=== PATIENT | female | born 1985 | race Caucasian/White ===

== ENCOUNTER 2022-06-26 20:16 | Inpatient (IN) ==
[2022-06-26 21:18] LABS: BUN Creatinine Ratio 12.8 (10-20); Calcium 9.3 mg/dl (8.6-10.3); Creatinine Clr Calc Pharmacy 81.8 ml/min; Est GFR (African American) 89.8 ml/min; Est GFR (Non-African American) 77.5 ml/min
[2022-06-26 21:26] LABS: Basophils # (auto) 0.07 K/uL (0-0.2); Basophils % (auto) 0.8 %; Eosinophils # (auto) 0.23 K/uL (0-0.50); Eosinophils % (auto) 2.6 %; Hematocrit (blood only) 41.2 % (37.0-47.0); Hemoglobin 14.4 g/dl (12.0-16.0); Immature Granulocytes # (auto) 0.02 K/uL (0.01-0.20); Immature Granulocytes % (auto) 0.2 %; Lymphocytes # (auto) 1.91 K/uL (1.2-3.4); Lymphocytes % (auto) 21.9 %; Mean Corpuscular Hemoglobin 31.7 pg (25.0-34.0); Mean Corpuscular Volume 90.7 fL (80.0-100.0); Mean Platelet Volume 8.9 fL (9.4-12.4); Monocytes # (auto) 0.59 K/uL (0.11-0.59); Monocytes % (auto) 6.8 %; Neutrophils % (auto) 67.7 %; Platelet Count 375 K/uL (130-400); RDW Coefficient of Variation 12.4 % (11.5-14.5); RDW Standard Deviation 40.9 fL (36.4-46.3); Red Blood Count 4.54 M/uL (4.20-5.40); White Blood Count 8.72 K/ul (4.8-10.8)
[2022-06-26 21:34] LABS: Albumin Globulin Ratio 1.7 (0.9-2); Albumin Level 4.4 gm/dl (3.4-5.0); Bilirubin,Total 0.3 mg/dl (0.2-1.0); Globulin 2.6 gm/dl (2.5-4.0)
[2022-06-26] MEDS ORDERED: FAMOTIDINE 20MG IV PUSH 20 MG/5 ML SYR IV STA (21:41)
[2022-06-26] MEDS ORDERED: SODIUM CHLORIDE 0.9% 1000ML 1,000 ML IV ONE (21:41)
[2022-06-26] MEDS ORDERED: GI COCKTAIL ED USE PO ONE (21:41)
[2022-06-26 22:15] LABS: Troponin I High Sensitivity 2.8 pg/ml (0-14)
--- NOTE | 2022-06-26 22:20 | Emergency Department Note ---
History of Present Illness General Chief complaint: Abdominal Pain Stated complaint: SEVERE STOMACH PAINS, Time Seen by Provider: 06/26/22 21:22 History of Present Illness Maximum Pain Intensity: 4 This 36-year-old female presents to the ER complaining of epigastric pain. Gallbladder has been removed. Patient denies chest pain, dyspnea, vomiting, diarrhea, flulike illness. She tried Carafate with minimal improvement of symptoms. Home Medications Medication Instructions Recorded Confirmed Type duloxetine 60 mg capsule,delayed 60 mg PO QAM 03/01/19 06/26/22 History release (Cymbalta) fluticasone propionate 50 2 spray intranasal DAILY PRN 08/14/20 06/26/22 History mcg/actuation nasal Allergy Symptoms spray,suspension loratadine 10 mg tablet (Claritin) 10 mg PO QAM PRN Allergic Symptoms 08/14/20 06/26/22 History sucralfate 1 gram tablet (Carafate) 1 g PO QPM 02/12/21 06/26/22 History linaclotide 145 mcg capsule 145 mcg PO DAILY PRN Abdominal 02/14/21 06/26/22 History (Linzess) Discomfort buspirone 10 mg tablet 10 mg PO BID 02/15/21 06/26/22 History trazodone 100 mg tablet 100 mg PO HS 06/26/22 06/26/22 History Allergies Allergy/AdvReac Type Severity Reaction Status Date / Time clindamycin Allergy Intermediate muscle Verified 06/26/22 21:57 aches/metal taste in mouth Penicillins Allergy Unknown UNKNOWN, Verified 06/26/22 21:57 CHILD ALLERGY doxycycline AdvReac Mild Metallic Verified 06/26/22 21:57 Taste Past Med/Surg History Medical History Anxiety Depression GERD (gastroesophageal reflux disease) History of stomach ulcers Medical marijuana use Obesity (BMI 30.0-34.9) Pain at surgical site Surgical History H/O umbilical hernia repair (02/20/21) Open Umbilical Hernia Repair- Al Lizama DO, FACS 02/20/2021 History of bilateral tubal ligation History of colonoscopy History of dilatation and curettage History of esophagogastroduodenoscopy (EGD) History of hysterectomy with unilateral oophorectomy d/t endometriosis (right removed) History of tooth extraction Hx laparoscopic cholecystectomy 08/22/2020 Dr. Garvin Family History Mother Family history of reaction to anesthesia SLOW TO WAKE UP Diabetes Lung cancer Father Cerebral aneurysm Social History Smoking Status: Current some day smoker Second Hand Exposure: Yes (CARIDAD SMOKED-JUST QUIT/PARENTS SMOKED); Hx Alcohol Use: No Hx Substance Use: Yes (medical marijuana use) Substance Use Type Other:: MEDICAL MARIJUANA CARD-VAPING DAILY PRN Preferred Language: Lithuanian Communication Ability: Effective Ripsaw Matcher Required: No Beliefs That Will Affect Care: None marital status: Single Current Living Situation: Family and Significant Other Current Living Situation Comment: Lives with fiance and DAUGHTER current occupational status: unemployed and disabled current occupation: HAS NOT WORKED 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 How many Children do You have: 2 Feels Safe at Home: Yes during the past year weight has: decreased > 10 lbs Assistive Devices: Glasses Review of Systems A total of 10 systems reviewed and were otherwise negative Physical Exam Vital Signs Vital Signs - 24 hr 06/26/22 20:29 06/27/22 00:35 Temperature 36.4 C L Temperature Source Temporal Artery Scan Pulse Rate 81 Pulse Rate [Finger] 84 Respiratory Rate 20 16 Respiratory Effort / Characteristics Non-Labored Spontaneous Respiratory Depth Normal Blood Pressure 160/99 H Blood Pressure [Left Arm] 148/84 H Blood Pressure Mean 119 Blood Pressure Mean [Left Arm] 105 Pulse Oximetry 97 96 Oxygen Delivery Method Room Air Room Air Sepsis Recent Fever Within 48 Hours No Sepsis New/Unexplained Change in Mental Status N/A Sepsis Action Taken by Nursing No Action Required VITALS: Vitals are noted on the nurse's note and reviewed by myself. Vital signs stable. GENERAL: Pleasant patient, in no acute distress, nondiaphoretic, well-developed well-nourished. SKIN: The skin was without rashes, erythema, edema, or bruising. There is no tenting of the skin. Capillary reflex less than 2 seconds. HEAD: Normocephalic atraumatic. EARS: External auditory canals clear, EYES: Pupils equal round and reactive to light and accommodation. Conjunctivae without injection, sclerae without icterus. Extraocular movements intact. NOSE: Patent, turbinates without inflammation or discharge. MOUTH: Mucous membranes moist. Pharynx without erythema or exudate. Uvula midline. Airway patent. Tongue does not deviate. NECK: Supple without nuchal rigidity. No lymphadenopathy. No thyromegaly. Cervical spine is nontender. No JVD. HEART: Regular rate and rhythm LUNGS: Clear to auscultation bilaterally without wheezes, rales or rhonchi. No retractions or accessory muscle use. ABDOMEN: Positive bowel sounds x 4. Normal tympanic percussion. Soft, tender epigastric region, without masses or organomegaly. Barajas sign negative. No guarding or rebound tenderness. No CVA tenderness MUSCULOSKELETAL: No muscle atrophy, erythema, or edema noted. NEURO: Patient was alert and oriented to person place and time. Normal sensation to light and sharp touch. No focal neurological deficits. Course Administered Medications Discontinued Medications Al Hydrox/Mg Hydrox/Simethicone (Gi Cocktail Ed Use) 1 dose PO ONE ONE Stop: 06/26/22 21:42 Last Admin: 06/26/22 21:59 Dose: 1 dose Documented By: KARELY Famotidine (Pepcid 20mg Iv Push) 20 mg in 5 mls @ 2.5 mls/min IV NOW STA Stop: 06/26/22 21:42 Last Admin: 06/26/22 21:59 Dose: 2.5 mls/min Documented By: KARELY Sodium Chloride (Nss 1000ml) 1,000 mls @ 999 mls/hr IV .Q1H1M ONE Stop: 06/26/22 22:41 Last Infusion: 06/26/22 23:09 Dose: 0 mls/hr Documented By: Admin: 06/26/22 22:00 Dose: 999 mls/hr Documented By: KARELY Ioversol (Optiray 350 100ml) 85 ml IV ONCE ONE Stop: 06/26/22 22:56 Last Admin: 06/26/22 22:57 Dose: 85 ml Documented By: UZIEL Medical Decision Making Medical Records Attestation: I reviewed the patient's medical records. Home Medications Current Medication List: was personally reviewed by me Laboratory Data Attestation: I reviewed the patient's lab results. 06/26/22 20:40 06/26/22 20:40 Lab Results 06/26/22 06/26/22 06/26/22 Range/Units 20:40 20:40 21:42 WBC 8.72 (4.8-10.8) K/ul RBC 4.54 (4.20-5.40) M/uL Hgb 14.4 (12.0-16.0) g/dl Hct 41.2 (37.0-47.0) % MCV 90.7 (80.0-100.0) fL MCH 31.7 (25.0-34.0) pg MCHC 35.0 (32.0-36.0) g/dL RDW Std Deviation 40.9 (36.4-46.3) fL RDW Coeff of Leopoldo 12.4 (11.5-14.5) % Plt Count 375 (130-400) K/uL MPV 8.9 L (9.4-12.4) fL Immature Gran % (Auto) 0.2 % Neut % (Auto) 67.7 % Lymph % (Auto) 21.9 % [place] % (Auto) 6.8 % Eos % (Auto) 2.6 % Baso % (Auto) 0.8 % Neut # (Auto) 5.90 (1.40-6.50) K/uL Lymph # (Auto) 1.91 (1.2-3.4) K/uL [place] # (Auto) 0.59 (0.11-0.59) K/uL Eos # (Auto) 0.23 (0-0.50) K/uL Baso # (Auto) 0.07 (0-0.2) K/uL Immature Gran # (Auto) 0.02 (0.01-0.20) K/uL Sodium 139 (136-145) mmol/L Potassium 4.0 (3.5-5.1) mmol/L Chloride 106 (98-107) mmol/L Carbon Dioxide 28 (21-32) mmol/L Anion Gap 5 (3-11) BUN 12 (6-23) mg/dl Creatinine 0.94 (0.6-1.2) mg/dl Est Cr Clr Drug Dosing 81.8 ml/min Est GFR ( Amer) 89.8 ml/min Est GFR (Non-Af Amer) 77.5 ml/min BUN/Creatinine Ratio 12.8 (10-20) Glucose 112 H (70-99(Fasting)) mg/dl Calcium 9.3 (8.6-10.3) mg/dl Total Bilirubin 0.3 (0.2-1.0) mg/dl AST 17 (13-39) U/L ALT 16 (7-52) U/L Alkaline Phosphatase 64 (34-104) U/L Troponin I High Sens 2.8 Cancelled (0-14) pg/ml Total Protein 7.0 (6.0-8.3) gm/dl Albumin 4.4 (3.4-5.0) gm/dl Globulin 2.6 (2.5-4.0) gm/dl Albumin/Globulin Ratio 1.7 (0.9-2) Lipase 678 H (11-82) U/L Urine Color Urine Appearance (Clear) Urine pH (4.5-7.5) Ur Specific [place] (1.000-1.030) Urine Protein (Negative) Urine Glucose (UA) (Negative) Urine Ketones (Negative) Urine Blood (Negative) Urine Nitrite (Negative) Urine Bilirubin (Negative) Urine Urobilinogen (Negative) Ur Leukocyte Esterase (Negative) SARS-CoV-2, RNA, NAAT (NEGATIVE) 06/27/22 06/27/22 Range/Units 00:31 00:31 WBC (4.8-10.8) K/ul RBC (4.20-5.40) M/uL Hgb (12.0-16.0) g/dl Hct (37.0-47.0) % MCV (80.0-100.0) fL MCH (25.0-34.0) pg MCHC (32.0-36.0) g/dL RDW Std Deviation (36.4-46.3) fL RDW Coeff of Leopoldo (11.5-14.5) % Plt Count (130-400) K/uL MPV (9.4-12.4) fL Immature Gran % (Auto) % Neut % (Auto) % Lymph % (Auto) % [place] % (Auto) % Eos % (Auto) % Baso % (Auto) % Neut # (Auto) (1.40-6.50) K/uL Lymph # (Auto) (1.2-3.4) K/uL [place] # (Auto) (0.11-0.59) K/uL Eos # (Auto) (0-0.50) K/uL Baso # (Auto) (0-0.2) K/uL Immature Gran # (Auto) (0.01-0.20) K/uL Sodium (136-145) mmol/L Potassium (3.5-5.1) mmol/L Chloride (98-107) mmol/L Carbon Dioxide (21-32) mmol/L Anion Gap (3-11) BUN (6-23) mg/dl Creatinine (0.6-1.2) mg/dl Est Cr Clr Drug Dosing ml/min Est GFR ( Amer) ml/min Est GFR (Non-Af Amer) ml/min BUN/Creatinine Ratio (10-20) Glucose (70-99(Fasting)) mg/dl Calcium (8.6-10.3) mg/dl Total Bilirubin (0.2-1.0) mg/dl AST (13-39) U/L ALT (7-52) U/L Alkaline Phosphatase (34-104) U/L Troponin I High Sens (0-14) pg/ml Total Protein (6.0-8.3) gm/dl Albumin (3.4-5.0) gm/dl Globulin (2.5-4.0) gm/dl Albumin/Globulin Ratio (0.9-2) Lipase (11-82) U/L Urine Color Yellow Urine Appearance Clear (Clear) Urine pH 5.5 (4.5-7.5) Ur Specific [place] > 1.045 H (1.000-1.030) Urine Protein Negative (Negative) Urine Glucose (UA) Negative (Negative) Urine Ketones Negative (Negative) Urine Blood Negative (Negative) Urine Nitrite Negative (Negative) Urine Bilirubin Negative (Negative) Urine Urobilinogen Negative (Negative) Ur Leukocyte Esterase Negative (Negative) SARS-CoV-2, RNA, NAAT NEGATIVE (NEGATIVE) Imaging Data Attestation: I personally reviewed and interpreted this imaging study as follows: Radiologist's Impression: Abdomen/Pelvis CT 06/26/22 21:41 Exam(s): CT ABDOMEN + PELVIS With Contrast IV Amt: 85 ml optiray EXAM: CT Abdomen and Pelvis With Intravenous Contrast CLINICAL HISTORY: Reason for exam: epi pain, ? pancreatitis. TECHNIQUE: Axial computed tomography images of the abdomen and pelvis with intravenous contrast. CTDI is 10.96 mGy and DLP is 527.14 mGy-cm. Automated exposure control was utilized for the study. A dose lowering technique was utilized adhering to the principles of ALARA. CONTRAST: Patient received 85 ml optiray of IV contrast COMPARISON: 01/16/2021. FINDINGS: Lung bases: Scattered minimal bilateral lower lobe atelectasis otherwise clear lung bases. Heart: Unremarkable. No significant pericardial effusion. Normal cardiac size. ABDOMEN: Liver: Unremarkable. No mass. Gallbladder and bile ducts: Nonvisualized gallbladder suggestive of previous cholecystectomy. No ductal dilation. Pancreas: Unremarkable. No mass. No ductal dilation. Spleen: Unremarkable. No splenomegaly. Adrenals: Unremarkable. No mass. Kidneys and ureters: Unremarkable. No solid mass. No hydronephrosis. Stomach and bowel: Unremarkable. No obstruction. No mucosal thickening. PELVIS: Appendix: Normal appendix. Bladder: Unremarkable. No mass. Reproductive: Nonvisualized uterus suggestive of previous hysterectomy. ABDOMEN and PELVIS: Intraperitoneal space: Unremarkable. No free air. No significant fluid collection. Bones/joints: No acute fracture. No dislocation. Soft tissues: Unremarkable. Vasculature: Unremarkable. No abdominal aortic aneurysm. Lymph nodes: Unremarkable. No enlarged lymph nodes. IMPRESSION: 1. Question prior cholecystectomy, clinical correlation recommended. Otherwise unremarkable abdominal viscera. Specifically, no signs of pancreatitis seen. 2. No acute appendicitis or bowel obstruction. 3. Status post prior hysterectomy otherwise normal pelvic structures. Electronically signed by: Jennifer Syed MD 06/26/22 23:45 PM [facility] Narrative Prior records/ancillary studies reviewed. Triage Nursing notes reviewed. Additional history obtained from nursing. The patient's history was concerning for abdominal pain. Differential diagnosis: Etiologies such as appendicitis, diverticulitis, PUD, biliary pathology, UTI, pancreatitis, obstruction, mesenteric ischemia, aortic pathology, infections, inflammatory bowel disease, renal colic, as well as others were entertained. Physical examination findings: As above. ER treatment provided: An order was placed for continuous cardiac monitoring. The monitor shows a rate of 60-1 50 with a sinus rhythm per my Independent interpretation. IV fluids, Pepcid, GI cocktail were ordered On reassessment the patient felt better. Diagnostics interpreted by me: ECG: Ordered for upper abdominal pain EKG: Poor baseline, normal sinus, normal intervals, no acute ST-T wave changes. Impression normal sinus rhythm poor baseline rate of 67 independently interpreted by myself I think arrhythmia is unlikely. EKG shows normal sinus rhythm with no interval abnormalities such as QT prolongation or WPW. There are no findings to suggest Brugada syndrome. Cardiac monitoring in the emergency department reveals no tachycardic or bradycardic dysrhythmia. Hypertrophic cardiomyopathy was considered but there are no clear historical elements pointing toward this. EKG is not suggestive. The QRS voltage is not extremely large and there are no suggestive Q waves. The labs Independently Interpreted by myself revealed elevated lipase. No w orrisome leukocytosis. Normal LFTs Imaging studies: Chest x-ray with no acute consolidation, pneumothorax or free air per my independent interpretation CT was negative for acute pancreatitis per my independent rotation and radiology read the report as above Consultation: A consultation was placed with the hospitalist. The case was discussed and diagnostics were reviewed. The patient was evaluated in the ER for further treatment. Exam and history seem consistent with acute abdominal pain with concerns for possible early pancreatitis. Lipase is elevated. Patient denies alcohol use. She is still moderate amount of pain. Medicine was consulted and the case was discussed. She will be admitted to the medical service. By the evaluation outlined above emergent etiologies such as appendicitis, diverticulitis, PUD, biliary pathology, UTI, obstruction, mesenteric ischemia, aortic pathology, infections, inflammatory bowel disease, renal colic, as well as others were deemed relatively unlikely. The pt informed about the findings as listed above. All questions were answered and pleased with the treatment. The chart was completed utilizing [employer] Speech voice recognition software. Grammatical errors, random word insertions, pronoun errors, and incomplete sentences are an occassional consequence of this system due to software limitations, ambient noise, and hardware issues. Any formal questions or concerns about the content, text, or information contained within the body of this dictation should be directly addressed to the physician pet care assistant for clarification. Impression & Plan Abdominal pain, acute, Acute pancreatitis Discharge Plan Visit Data Chief Complaint: Abdominal Pain Stated Complaint: SEVERE STOMACH PAINS, ED Provider: Jorden Moreno ED Midlevel Provider: Tamika An Discharge Problem: Abdominal pain, acute, Acute pancreatitis Patient Disposition: Admitted As Inpatient Condition: Good Forms Stand Alone Forms: [employer] Prescriptions Prescriptions: No Action sucralfate [Carafate] 1 gram tablet 1 g PO QPM Linzess 145 mcg capsule 145 mcg PO DAILY PRN (Reason: Abdominal Discomfort) duloxetine [Cymbalta] 60 mg Capsule,Delayed Release(Dr/Ec) 60 mg PO QAM trazodone 100 mg tablet 100 mg PO HS fluticasone propionate 50 mcg/actuation [place],Suspension 2 spray INTRANASAL DAILY PRN (Reason: Allergy Symptoms) loratadine [Claritin] 10 mg Tablet 10 mg PO QAM PRN (Reason: Allergic Symptoms) buspirone 10 mg Tablet 10 mg PO BID Referrals Referrals: Williams Hauser MD [Primary Care Provider] -
[2022-06-26] MEDS ORDERED: OPTIRAY 350 100ml IV ONE (22:55)
--- NOTE | 2022-06-26 23:46 | CT Scan Report ---
Exam(s): CT ABDOMEN + PELVIS With Contrast IV Amt: 85 ml optiray EXAM: CT Abdomen and Pelvis With Intravenous Contrast CLINICAL HISTORY: Reason for exam: epi pain, ? pancreatitis. TECHNIQUE: Axial computed tomography images of the abdomen and pelvis with intravenous contrast. CTDI is 10.96 mGy and DLP is 527.14 mGy-cm. Automated exposure control was utilized for the study. A dose lowering technique was utilized adhering to the principles of ALARA. CONTRAST: Patient received 85 ml optiray of IV contrast COMPARISON: 01/16/2021. FINDINGS: Lung bases: Scattered minimal bilateral lower lobe atelectasis otherwise clear lung bases. Heart: Unremarkable. No significant pericardial effusion. Normal cardiac size. ABDOMEN: Liver: Unremarkable. No mass. Gallbladder and bile ducts: Nonvisualized gallbladder suggestive of previous cholecystectomy. No ductal dilation. Pancreas: Unremarkable. No mass. No ductal dilation. Spleen: Unremarkable. No splenomegaly. Adrenals: Unremarkable. No mass. Kidneys and ureters: Unremarkable. No solid mass. No hydronephrosis. Stomach and bowel: Unremarkable. No obstruction. No mucosal thickening. PELVIS: Appendix: Normal appendix. Bladder: Unremarkable. No mass. Reproductive: Nonvisualized uterus suggestive of previous hysterectomy. ABDOMEN and PELVIS: Intraperitoneal space: Unremarkable. No free air. No significant fluid collection. Bones/joints: No acute fracture. No dislocation. Soft tissues: Unremarkable. Vasculature: Unremarkable. No abdominal aortic aneurysm. Lymph nodes: Unremarkable. No enlarged lymph nodes. IMPRESSION: 1. Question prior cholecystectomy, clinical correlation recommended. Otherwise unremarkable abdominal viscera. Specifically, no signs of pancreatitis seen. 2. No acute appendicitis or bowel obstruction. 3. Status post prior hysterectomy otherwise normal pelvic structures. Electronically signed by: Jennifer Syed MD 06/26/22 23:45 PM
[2022-06-27 00:40] LABS: Appearance Urine Clear (Clear); Bilirubin Urine Negative (Negative); Blood Urine Negative (Negative); Color Urine Yellow; Glucose Urine UA Negative (Negative); Ketones Urine Negative (Negative); Leukocyte Esterase Urine Negative (Negative); Nitrite Urine Negative (Negative); Protein Urine Negative (Negative); Specific Gravity Urine > 1.045 (1.000-1.030); Urobilinogen Urine Negative (Negative); pH Urine 5.5 (4.5-7.5)
--- NOTE | 2022-06-27 02:52 | History and Physical Report ---
DATE OF ADMISSION: 06/27/2022. CHIEF COMPLAINT: Abdominal pain. HISTORY OF PRESENT ILLNESS: This is a 36-year-old female with past medical history significant for fatty liver, allergic rhinitis, major depression, generalized anxiety disorder, who presents with severe abdominal pain. The patient says last evening when she was eating dinner around 5:30 p.m., she noticed severe pain in the epigastric and lower rib cage region, radiated to back. Says she has history of esophagitis, and gerd thought could possibly be esophagitis or gerd , but it was not getting better, the pain was different, so she came here. Her labs, lipase is elevated at 678. Urinalysis negative. Rest of the labs are okay. CT abdomen and pelvis was okay. The patient has history of cholecystectomy. LFTs were okay. Question of elevated lipase and pancreatitis, so we were called for admission. Patient is somewhat tearful because of pain. The pain is sometimes going to the lower chest, a burning pain. No nausea or vomiting. No diarrhea. Has the usual constipation, but no blood in the stools or black stools. Normal bladder movements. No hematuria. No fevers. Currently, no shortness of breath, no cough, no headache, no blurred visions, no earache, no runny nose, no sore throat. Hemodynamics are stable. ALLERGIES: TO CLINDAMYCIN, PENICILLIN, DOXYCYCLINE. PAST MEDICAL HISTORY: As mentioned above. PAST SURGICAL HISTORY: Colonoscopy, EGD/ fundoplication, hysteroscopy, endometrial ablation, laparoscopic hysterectomy with right salpingo- oophorectomy, laparoscopic cholecystectomy, ligation of oviducts, Pap screen. MEDICATIONS: The patient is on buspirone 10 mg p.o. b.i.d., duloxetine 60 mg p.o. a.m., Flonase 2 sprays intranasal daily p.r.n., Linzess 145 mcg daily p.r.n., Claritin 10 mg p.o. daily p.r.n. for allergic symptoms, Carafate 1 g p.o. p.m., trazodone 100 mg p.o. at bedtime. FAMILY HISTORY: Significant for father of brain aneurysm; mother had thyroid disorder; paternal grandfather had alcoholism. SOCIAL HISTORY: Quit smoking in 2014, smoked 1 pack a day for 10 years. Currently no alcohol use. Smokes marijuana as per Epic. REVIEW OF SYSTEMS: As per HPI. Rest of review of systems is negative. PHYSICAL EXAMINATION: GENERAL: The patient is obese, not in acute distress. VITAL SIGNS: Temperature 36.4, pulse 84, respiratory rate 16, blood pressure 148/84, oxygen 96% on room air. HEENT: Pupils equal, round, and reactive to light. Oral mucosa moist. NECK: No JVD. No neck masses. CARDIOVASCULAR: S1 and S2 heard. Regular rate and rhythm. No murmur, no gallop. RESPIRATORY SYSTEM: Normal AP diameter. No accessory muscle use. No wheezing, no crackles. ABDOMEN: Soft, bowel sounds present. Epigastric tenderness present with some mild guarding. No rigidity, no distention. CENTRAL NERVOUS SYSTEM: Cranial nerves II-XII grossly intact, nonfocal. EXTREMITIES: No edema, no erythema. LABORATORY DATA: WBC 8.7, hemoglobin 14.4, hematocrit 41.2, platelets 375. Sodium 139, potassium 4, chloride 106, bicarbonate 28, BUN 12, creatinine 0.9, serum glucose 112, calcium 9.3, total bilirubin 0.3, AST 17, ALT 16, alkaline phosphatase 64. Troponin I high sensitivity 2.8, lipase 678. Urinalysis negative. SARS-CoV-2 rapid test negative. IMAGING DATA: Chest x-ray, no acute findings. CT abdomen and pelvis with IV contrast, question prior cholecystectomy, unremarkable abdominal viscera. No signs of pancreatitis seen. No acute appendicitis or bowel obstruction. Status post hysterectomy, otherwise normal pelvic structures. EKG: Poor quality data interpretation. Normal sinus rhythm, rate of 61. Low voltage QRS, septal infarct age indeterminate. No previous ECGs available. ASSESSMENT AND PLAN: This is a 36-year-old female who presents with epigastric abdominal pain, admitted for possible pancreatitis. 1. Abdominal pain in the epigastric region: The patient has history of gastritis and a history of esophagitis in the past. Lipase is elevated at 678. CT abdomen and pelvis with IV contrast is mostly unremarkable. History of cholecystectomy in the past: Will keep her in the hospital, keep her n.p.o., IV Ringer lactate at 200 mL per hour, IV Dilaudid p.r.n., and IV Zofran p.r.n. Follow repeat lipase. Consult GI in the a.m. for further recommendations. 2. History of gastritis and esophagitis: Will continue with IV Pepcid b.i.d.Continue home Carafate q pm 3. History of major depression and generalized anxiety disorder: Continue her Cymbalta, buspirone and trazodone. 4. Deep venous thrombosis prophylaxis: Lovenox. DISPOSITION: Close observation in medical floor. PT, OT prior to discharge. Social service to help with discharge planning. Job ID: [id number] [facility] CENTERLisa
[2022-06-27] MEDS ORDERED: POLYETHYLENE (MIRALAX) 17 GM PACK PO PRN (03:24)
[2022-06-27] MEDS ORDERED: ACETAMINOPHEN 325 MG TAB PO PRN (03:24)
[2022-06-27] MEDS ORDERED: HYDROmorphone INJ 0.5 MG/0.5 ML SYR IV PRN (03:24)
[2022-06-27] MEDS ORDERED: FLUTICASONE PROPIONATE NA SPR 16 GM BTL PRN (03:24)
[2022-06-27] MEDS: LACTATED RINGER'S 1,000 ML IV SCH ×4 (03:46→19:38)
--- NOTE | 2022-06-27 06:57 | XRay Report ---
XR chest 1V portable HISTORY: 36 years-old Female epi pain acute chest and upper abdominal pain COMPARISON: CT abdomen and pelvis of same day TECHNIQUE: AP view of the chest FINDINGS: Cardiomediastinal and hilar silhouettes are within normal limits. Mid to lower thoracic dextroscolios is. The bones appear grossly intact. No pneumothorax, pleural effusion, airspace consolidation or pul monary edema. IMPRESSION: No acute process. ACT 112: Negative or not required by law. The above report was generated using voice recognition software. It may contain grammatical, syntax o r spelling errors. Electronically signed by: Odell Johnson M.D. 06/27/2022 6:56 AM
[2022-06-27] MEDS: FAMOTIDINE 20 MG in SYRINGE 3 ML IV SCH ×2 (07:32→20:15)
[2022-06-27] MEDS: ENOXAPARIN INJ 40 MG/0.4 ML SYR SQ SCH (07:34)
[2022-06-27] MEDS: DULoxetine HCL 60 MG CAP PO SCH (07:34)
[2022-06-27] MEDS: busPIRone 5 MG TAB PO SCH ×2 (07:34→20:10)
--- NOTE | 2022-06-27 08:48 | Hospitalist Progress Note ---
Date of Service June 27, 2022 Assessment & Plan (1) Acute pancreatitis: Plan: First episode, unclear etiology. Denies heavy EtOH use. Cont LR as she is improved. Pain meds PRN. Known h/o IBS-C and takes Linzess on occasion. Loose stools reported at this time. Will monitor. (2) GERD (gastroesophageal reflux disease): Plan: history of transoral incisionless fundoplication (TID) procedure in 2019 by [facility]. May consider increasing home carafate to BID, however, awaiting GI evaluation. Cont linzess and pepcid for now. Patient was also historically on a PPI, which is not on her current home medication list. Would consider adding this back, also. (3) Depression: Plan: Chronic, stable. Cont home medications including Buspar and Duloxetine. Lovenox Full code Dispo-to home when pancreatitis resolves and she is tolerating solid food again. [facility] Admission and Anticipated Discharge Date Admission Date: June 27, 2022 Results & Data Results & Data Vital Signs (Past 12 Hours) Vital Signs Temp Pulse Resp BP Pulse Ox O2 Del Method 06/27/22 07:16 36.7 C 69 16 132/91 95 Room Air 06/27/22 03:21 36.8 C 70 16 131/88 96 Room Air 06/27/22 00:35 84 16 148/84 H 96 Room Air Laboratory Results Short CBC 06/26/22 Range/Units 20:40 WBC 8.72 (4.8-10.8) K/ul Hgb 14.4 (12.0-16.0) g/dl Hct 41.2 (37.0-47.0) % Plt Count 375 (130-400) K/uL BMP 06/26/22 20:40 Sodium 139 Potassium 4.0 Chloride 106 Carbon Dioxide 28 BUN 12 Creatinine 0.94 Glucose 112 H Calcium 9.3 Liver Function 06/26/22 Range/Units 20:40 Total Bilirubin 0.3 (0.2-1.0) mg/dl AST 17 (13-39) U/L ALT 16 (7-52) U/L Alkaline Phosphatase 64 (34-104) U/L Albumin 4.4 (3.4-5.0) gm/dl Urine 06/27/22 Range/Units 00:31 Urine Color Yellow Urine Appearance Clear (Clear) Urine pH 5.5 (4.5-7.5) Ur Specific [place] > 1.045 H (1.000-1.030) Urine Protein Negative (Negative) Urine Glucose (UA) Negative (Negative) Diagnostic Findings Abdomen/Pelvis CT 06/26/22 21:41 Exam(s): CT ABDOMEN + PELVIS With Contrast IV Amt: 85 ml optiray EXAM: CT Abdomen and Pelvis With Intravenous Contrast CLINICAL HISTORY: Reason for exam: epi pain, ? pancreatitis. TECHNIQUE: Axial computed tomography images of the abdomen and pelvis with intravenous contrast. CTDI is 10.96 mGy and DLP is 527.14 mGy-cm. Automated exposure control was utilized for the study. A dose lowering technique was utilized adhering to the principles of ALARA. CONTRAST: Patient received 85 ml optiray of IV contrast COMPARISON: 01/16/2021. FINDINGS: Lung bases: Scattered minimal bilateral lower lobe atelectasis otherwise clear lung bases. Heart: Unremarkable. No significant pericardial effusion. Normal cardiac size. ABDOMEN: Liver: Unremarkable. No mass. Gallbladder and bile ducts: Nonvisualized gallbladder suggestive of previous cholecystectomy. No ductal dilation. Pancreas: Unremarkable. No mass. No ductal dilation. Spleen: Unremarkable. No splenomegaly. Adrenals: Unremarkable. No mass. Kidneys and ureters: Unremarkable. No solid mass. No hydronephrosis. Stomach and bowel: Unremarkable. No obstruction. No mucosal thickening. PELVIS: Appendix: Normal appendix. Bladder: Unremarkable. No mass. Reproductive: Nonvisualized uterus suggestive of previous hysterectomy. ABDOMEN and PELVIS: Intraperitoneal space: Unremarkable. No free air. No significant fluid collection. Bones/joints: No acute fracture. No dislocation. Soft tissues: Unremarkable. Vasculature: Unremarkable. No abdominal aortic aneurysm. Lymph nodes: Unremarkable. No enlarged lymph nodes. IMPRESSION: 1. Question prior cholecystectomy, clinical correlation recommended. Otherwise unremarkable abdominal viscera. Specifically, no signs of pancreatitis seen. 2. No acute appendicitis or bowel obstruction. 3. Status post prior hysterectomy otherwise normal pelvic structures. Electronically signed by: Jennifer Syed MD 06/26/22 23:45 PM Chest X-Ray 06/26/22 21:43 XR chest 1V portable HISTORY: 36 years-old Female epi pain acute chest and upper abdominal pain COMPARISON: CT abdomen and pelvis of same day TECHNIQUE: AP view of the chest FINDINGS: Cardiomediastinal and hilar silhouettes are within normal limits. Mid to lower thoracic dextroscoliosis. The bones appear grossly intact. No pneumothorax, pleural effusion, airspace consolidation or pulmonary edema. IMPRESSION: No acute process. ACT 112: Negative or not required by law. The above report was generated using voice recognition software. It may contain grammatical, syntax or spelling errors. Electronically signed by: Odell Johnson M.D. 06/27/2022 6:56 AM Medications Administered Current Inpatient Medications Acetaminophen (Acetaminophen 325 Mg Tab) 650 mg PO Q4H PRN PRN Reason: pain/fever Stop: 07/27/22 03:23 Buspirone HCl (Buspirone 5 Mg Tab) 10 mg PO BID ALEX Stop: 07/27/22 08:59 Last Admin: 06/27/22 07:34 Dose: 10 mg Duloxetine HCl (Duloxetine Hcl 60 Mg Cap) 60 mg PO QAM ALEX Stop: 07/27/22 08:59 Last Admin: 06/27/22 07:34 Dose: 60 mg Enoxaparin Sodium (Enoxaparin Inj 40 Mg/0.4 Ml Syr) 40 mg SQ Q24H ALEX Stop: 07/27/22 08:59 Last Admin: 06/27/22 07:34 Dose: Not Given Fluticasone Propionate (Fluticasone Propionate Na Spr 16 Gm Btl) 2 sprays NA DAILY PRN PRN Reason: Allergy Symptoms Stop: 07/27/22 03:23 Hydromorphone HCl (Hydromorphone Inj 0.5 Mg/0.5 Ml Syr) 0.5 mg IV Q4H PRN PRN Reason: Pain Stop: 07/11/22 03:23 Last Admin: 06/27/22 03:37 Dose: 0.5 mg Lactated Ringer's (Lr) 1,000 mls @ 200 mls/hr IV .Q5H ALEX Stop: 07/27/22 03:23 Last Admin: 06/27/22 03:46 Dose: 200 mls/hr Famotidine 20 mg/ Syringe 5 mls @ 2.5 mls/min IV BID ALEX Stop: 07/27/22 08:59 Last Admin: 06/27/22 07:32 Dose: 2.5 mls/min Ondansetron HCl (Ondansetron Inj 2 Mg/Ml 2 Ml Vial) 4 mg IV Q6H PRN PRN Reason: Nausea Stop: 07/27/22 03:23 Polyethylene Glycol (Polyethylene (Miralax) 17 Gm Pack) 17 gm PO DAILY PRN PRN Reason: Constipation Stop: 07/27/22 03:23 Sucralfate (Sucralfate 1 Gm Tab) 1 gm PO QPM ALEX Stop: 07/27/22 20:59 Trazodone HCl (Trazodone Hcl 100 Mg Tab) 100 mg PO HS ALEX Stop: 07/27/22 20:59
[2022-06-27 09:47] LABS: Basophils # (auto) 0.05 K/uL (0-0.2); Basophils % (auto) 0.6 %; Eosinophils # (auto) 0.14 K/uL (0-0.50); Eosinophils % (auto) 1.8 %; Hematocrit (blood only) 38.9 % (37.0-47.0); Hemoglobin 13.1 g/dl (12.0-16.0); Immature Granulocytes # (auto) 0.02 K/uL (0.01-0.20); Immature Granulocytes % (auto) 0.3 %; Lymphocytes # (auto) 1.47 K/uL (1.2-3.4); Lymphocytes % (auto) 18.7 %; Mean Corpuscular Hemoglobin 31.2 pg (25.0-34.0); Mean Corpuscular Hgb Conc 33.7 g/dL (32.0-36.0); Mean Corpuscular Volume 92.6 fL (80.0-100.0); Mean Platelet Volume 8.5 fL (9.4-12.4); Monocytes # (auto) 0.59 K/uL (0.11-0.59); Monocytes % (auto) 7.5 %; Neutrophils % (auto) 71.1 %; Platelet Count 306 K/uL (130-400); RDW Coefficient of Variation 12.4 % (11.5-14.5); RDW Standard Deviation 42.6 fL (36.4-46.3); White Blood Count 7.87 K/ul (4.8-10.8)
[2022-06-27 10:05] LABS: BUN Creatinine Ratio 9.3 (10-20); Calcium 8.8 mg/dl (8.6-10.3); Creatinine Clr Calc Pharmacy 89.2 ml/min; Est GFR (Non-African American) 86.3 ml/min; Magnesium 1.8 mg/dl (1.7-2.4); Potassium 4.4 mmol/L (3.5-5.1)
[2022-06-27 10:12] LABS: Troponin I High Sensitivity 2.5 pg/ml (0-14)
--- NOTE | 2022-06-27 14:40 | Electrocardiogram Report ---
Test Reason : Blood Pressure : / mmHG Vent. Rate : 061 BPM Atrial Rate : 061 BPM P-R Int : 134 ms QRS Dur : 040 ms QT Int : 394 ms P-R-T Axes : 055 038 080 degrees QTc Int : 396 ms Poor data quality, interpretation may be adversely affected Normal sinus rhythm Low voltage QRS Septal infarct , age undetermined Abnormal ECG No previous ECGs available Confirmed by Ryan Camacho ([id number]) on 06/27/2022 2:39:47 PM Referred By: REFERRED SELF Confirmed By:Ryan Camacho
[2022-06-27] MEDS ORDERED: MoRPHine SULFATE 2 MG/ML CARP IV PRN (15:50)
--- NOTE | 2022-06-27 17:21 | Gastrointestinal Consultation ---
Date of Consultation June 27, 2022 Assessment & Plan (1) Acute pancreatitis: Unknown etiology. No evidence of choledocholithiasis. Post choley. No hx of increased ETOH No new medications. Plan 1. IV LR at 200/hr. 2. Clear liquids po. 3. Analgesics and antiemetics 4. OP EGD/EUS in 6wks. 5. GI will jean sign off. Recall if needed. Supervising Physician Co-Signing Physician Notes I performed a history and physical examination of the patient today, including specifically on physical exam - soft abdomen. I have discussed the patient's management with the advanced practitioner. Please refer to the nurse practitioner's note for the documented findings and plan of care. OP EUS Recall GI if needed. History of Present Illness Reason for Consultation: Pancreatitis Requesting Physician: Dr. Bell Attending Physician: Martine Vidales, DO History of Present Illness Ms. Rosalina Teran is a 36 yr old female pt of Dr. Hauser w a hx of fatty liver, GERD post TIFF, depression/anxiety who presented to the ED late yesterday for pain that began after eating steak for lunch. She developed diffuse upper abd pain radiating around to the back that persisted, also w one episodes of nausea/vomiting. On arrival, LFTsm hb and creatinine were normal but Lipase was elevated at 678. CT w/o significant abnormalities post choley and appendectomy. She continues w pain, though says it is improved and is tolerating clear liquids po. Allergies Allergy/AdvReac Type Severity Reaction Status Date / Time clindamycin Allergy Intermediate muscle Verified 06/26/22 21:57 aches/metal taste in mouth Penicillins Allergy Unknown UNKNOWN, Verified 06/26/22 21:57 CHILD ALLERGY doxycycline AdvReac Mild Metallic Verified 06/26/22 21:57 Taste Home Medications Medication Instructions Recorded Confirmed Type duloxetine 60 mg capsule,delayed 60 mg PO QAM 03/01/19 06/26/22 History release (Cymbalta) fluticasone propionate 50 2 spray intranasal DAILY PRN 08/14/20 06/26/22 History mcg/actuation nasal Allergy Symptoms spray,suspension loratadine 10 mg tablet (Claritin) 10 mg PO QAM PRN Allergic Symptoms 08/14/20 06/26/22 History sucralfate 1 gram tablet (Carafate) 1 g PO QPM 02/12/21 06/26/22 History linaclotide 145 mcg capsule 145 mcg PO DAILY PRN Abdominal 02/14/21 06/26/22 History (Linzess) Discomfort buspirone 10 mg tablet 10 mg PO BID 02/15/21 06/26/22 History trazodone 100 mg tablet 100 mg PO HS 06/26/22 06/26/22 History Patient History Medical History (Updated 06/27/22 @ 08:51 by Martine Vidales DO) Anxiety Depression GERD (gastroesophageal reflux disease) History of stomach ulcers Medical marijuana use Obesity (BMI 30.0-34.9) Pain at surgical site Surgical History H/O umbilical hernia repair (02/20/21) Open Umbilical Hernia Repair- Al Lizama DO, FACS 02/20/2021 History of bilateral tubal ligation History of colonoscopy History of dilatation and curettage History of esophagogastroduodenoscopy (EGD) History of hysterectomy with unilateral oophorectomy d/t endometriosis (right removed) History of tooth extraction Hx laparoscopic cholecystectomy 08/22/2020 Dr. Garvin Family History Mother Family history of reaction to anesthesia SLOW TO WAKE UP Diabetes Lung cancer Father Cerebral aneurysm Social History Smoking Status: Former smoker Second Hand Exposure: Yes (CARIDAD SMOKED-JUST QUIT/PARENTS SMOKED); Hx Alcohol Use: No Hx Substance Use: Yes Last Used Substance: Just Prior to Arrival Substance Use Type Other:: MEDICAL MARIJUANA CARD-VAPING DAILY PRN Preferred Language: [place] Verdean Communication Ability: Effective Pole Shaver Required: No Beliefs That Will Affect Care: None marital status: Single Current Living Situation: Family Current Living Situation Comment: Lives with fiance and DAUGHTER current occupational status: unemployed and disabled current occupation: HAS NOT WORKED 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 How many Children do You have: 2 Other Information That Helps Us Care for You: No Feels Safe at Home: Yes Safety Concerns: Feels Safe At This Time during the past year weight has: decreased > 10 lbs Assistive Devices: None Review of Systems Review of Systems: ROS: Gen: Denies weakness, fevers, weight loss Eyes: No eye redness, or pain, no recent vision changes Resp: No SOB, no cough Cardio: No palpitations/irregular beats, no chest pain GI: As per HPI, othewise (-) : Denies pain on urination Skin: No jaundice, itching or new rashes A total of 12 systems were reviewed, all others (-) Physical Exam Constitutional: WD/WN, vitals as above Eyes: PERRL, conjunctivae normal, anicteric sclerae ENMT: external ear and nose normal, oropharynx normal Neck: trachea midline, no thyromegaly Respiratory: normal respiratory effort, lungs clear to auscultation Cardiovascular: RRR, no murmur, no edema Gastrointestinal (Abdomen): Soft, non distended, hypoactive BS, very tender in the epigastric area. Skin: warm, dry no jaundice Neurologic: PERRL, EOMI, accommodation nl, no face palsy, no dysarthria Psychiatric: A+Ox3, euthymic affect Lymphatic: no cervical or axillary lymphadenopathy Results & Data Vital Signs (Past 12 Hours) Vital Signs Temp Pulse Resp BP Pulse Ox O2 Del Method 06/27/22 14:20 36.7 C 61 16 148/87 H 98 Room Air 06/27/22 07:16 36.7 C 69 16 132/91 95 Room Air Laboratory Results WBC 8.7, hb 14.4, Hct 41.2, Plts 375, Na 139, K 4.2. BUN 12, Cr 0.94 T BIli 1.2, AST 21, ALT 13, Alk Phos 128 Diagnostic Findings CTAP w IV 1. Question prior cholecystectomy, clinical correlation recommended. Otherwise unremarkable abdominal viscera. Specifically, no signs of pancreatitis seen. 2. No acute appendicitis or bowel obstruction. 3. Status post prior hysterectomy otherwise normal pelvic structures.
[2022-06-27] MEDS: SUCRALFATE 1 GM TAB PO SCH (20:10)
[2022-06-27] MEDS: traZODone HCL 100 MG TAB PO SCH (20:10)
[2022-06-27] MEDS: ONDANSETRON INJ 2 MG/ML 2 ML VIAL IV PRN (20:19)
[2022-06-28] MEDS ORDERED: ACETAMINOPHEN 1,000 MG/100 ML VIAL IV STA (01:35)
[2022-06-28] MEDS: LACTATED RINGER'S 1,000 ML IV SCH ×2 (01:54→09:02)
[2022-06-28] MEDS: ONDANSETRON INJ 2 MG/ML 2 ML VIAL IV PRN ×2 (02:13→07:47)
[2022-06-28 06:37] LABS: BUN Creatinine Ratio 8.6 (10-20); Calcium 8.8 mg/dl (8.6-10.3); Creatinine Clr Calc Pharmacy 94.7 ml/min; Est GFR (African American) 107.5 ml/min; Est GFR (Non-African American) 92.8 ml/min; Magnesium 1.7 mg/dl (1.7-2.4); Potassium 4.5 mmol/L (3.5-5.1)
[2022-06-28] MEDS: busPIRone 5 MG TAB PO SCH ×2 (07:42→20:14)
[2022-06-28] MEDS: ENOXAPARIN INJ 40 MG/0.4 ML SYR SQ SCH (07:42)
[2022-06-28] MEDS: DULoxetine HCL 60 MG CAP PO SCH (07:42)
[2022-06-28] MEDS: FAMOTIDINE 20 MG in SYRINGE 3 ML IV SCH ×2 (09:02→20:14)
--- NOTE | 2022-06-28 10:09 | Hospitalist Progress Note ---
Date of Service June 28, 2022 Assessment & Plan (1) Acute pancreatitis: Plan: First episode, unclear etiology. Denies heavy EtOH use. Cont LR as she is improved. Pain meds PRN. Known h/o IBS-C and takes Linzess on occasion. No persistent loose stools reported. Feeling she could tolerate clears, advanced diet to clears. Plan is for outpatient followup with GI for EGD/EUS (2) GERD (gastroesophageal reflux disease): Plan: history of transoral incisionless fundoplication (TID) procedure in 2019 by [facility]. Cont linzess and pepcid for now. Patient was also historically on a PPI, which is not on her current home medication list. Would consider adding this back if symptoms worsened (3) Depression: Plan: Chronic, stable. Cont home medications including Buspar and Duloxetine. Lovenox Full code Dispo-to home when pancreatitis resolves and she is tolerating solid food again. Mart[facility]ales [facility] and Anticipated Discharge Date Admission Date: June 27, 2022 Subjective 36 yo with acute pancreatitis No narcotics overnight +HAMM possible from Buspar withdrawal which she was able to tolerate this am Epigastric pain is improved OK to advance to clears denies diarrhea. Review of Systems Review of Systems: All systems were reviewed and negative except as indicated in HPI [email or web address].e Physical Exam Physical Exam: PE: vitals stable Gen: appears clinically improved today, NAD HEENT: mucous membranes are moist Pulm: CTAB, normal resp effort CV: reg rate and rhythm, S1/2 heard, no peripheral edema ABD: +epigastric TTP has improved/resolved, NTND Neuro: no gross focal deficits, memory and speech intact. CN 2-12 grossly intact MUSCK: 5/5 strength throughout, ambulatory at her baseline PSYCH: euthymic, makes good eye contact, A&O x 3 Results & Data Results & Data Vital Signs (Past 12 Hours) Vital Signs Temp Pulse Resp BP Pulse Ox O2 Del Method 06/28/22 07:09 36.7 C 71 16 128/72 94 Room Air Laboratory Results [facility] 06/28/22 05:35 Sodium 142 Potassium 4.5 Chloride 109 H Carbon Dioxide 29 BUN 7 Creatinine 0.81 Glucose 97 Calcium 8.8 Medications Administered Current Inpatient Medications Acetaminophen (Acetaminophen 325 Mg Tab) 650 mg PO Q4H PRN PRN Reason: pain/fever Stop: 07/27/22 03:23 Last Admin: 06/28/22 07:41 Dose: 650 mg Buspirone HCl (Buspirone 5 Mg Tab) 10 mg PO BID [facility] Stop: 07/27/22 08:59 Last Admin: 06/28/22 07:42 Dose: 10 mg Duloxetine HCl (Duloxetine Hcl 60 Mg Cap) 60 mg PO QAM [facility] Stop: 07/27/22 08:59 Last Admin: 06/28/22 07:42 Dose: 60 mg Enoxaparin Sodium (Enoxaparin Inj 40 Mg/0.4 Ml Syr) 40 mg SQ Q24H [facility] Stop: 07/27/22 08:59 Last Admin: 06/28/22 07:42 Dose: Not Given Fluticasone Propionate (Fluticasone Propionate Na Spr 16 Gm Btl) 2 sprays NA DAILY PRN PRN Reason: Allergy Symptoms Stop: 07/27/22 03:23 Lactated Ringer's (Lr) 1,000 mls @ 150 mls/hr IV .Q6H40M [facility] Stop: 07/27/22 03:23 Last Admin: 06/28/22 09:02 Dose: 150 mls/hr Famotidine 20 mg/ Syringe 5 mls @ 2.5 mls/min IV BID [facility] Stop: 07/27/22 08:59 Last Admin: 06/28/22 09:02 Dose: 2.5 mls/min Morphine Sulfate (Morphine Sulfate 2 Mg/Ml Carp) 2 mg IV Q4H PRN PRN Reason: Severe Pain 7-10 Stop: 07/11/22 15:49 Ondansetron HCl (Ondansetron Inj 2 Mg/Ml 2 Ml Vial) 4 mg IV Q6H PRN PRN Reason: Nausea Stop: 07/27/22 03:23 Last Admin: 06/28/22 07:47 Dose: 4 mg Polyethylene Glycol (Polyethylene (Miralax) 17 Gm Pack) 17 gm PO DAILY PRN PRN Reason: Constipation Stop: 07/27/22 03:23 Sucralfate (Sucralfate 1 Gm Tab) 1 gm PO QPM [facility] Stop: 07/27/22 20:59 Last Admin: 06/27/22 20:10 Dose: 1 gm Trazodone HCl (Trazodone Hcl 100 Mg Tab) 100 mg PO HS ALEX Stop: 07/27/22 20:59 Last Admin: 06/27/22 20:10 Dose: 100 mg
[2022-06-28] MEDS: traZODone HCL 100 MG TAB PO SCH (20:14)
[2022-06-28] MEDS: SUCRALFATE 1 GM TAB PO SCH (20:14)
[2022-06-29] MEDS: ONDANSETRON INJ 2 MG/ML 2 ML VIAL IV PRN (07:07)
--- NOTE | 2022-06-29 08:12 | Hospitalist Progress Note ---
Date of Service June 29, 2022 Assessment & Plan (1) Acute pancreatitis: Plan: First episode, unclear etiology. Denies heavy EtOH use. Cont LR as she is improved. Pain meds PRN. Known h/o IBS-C and takes Linzess on occasion. No persistent loose stools reported. Feeling she could tolerate clears, advanced diet to clears. Plan is for outpatient followup with GI for EGD/EUS (2) GERD (gastroesophageal reflux disease): Plan: history of transoral incisionless fundoplication (TID) procedure in 2019 by [facility]. Cont linzess and pepcid for now. Patient was also historically on a PPI, which is not on her current home medication list. Would consider adding this back if symptoms worsened (3) Depression: Plan: Chronic, stable. Cont home medications including Buspar and Duloxetine. Lovenox Full code Dispo-to home when pancreatitis resolves and she is tolerating solid food again. Martine [facility]ales [facility] and Anticipated Discharge Date Admission Date: June 27, 2022 Review of Systems Review of Systems: All systems were reviewed and negative except as indicated in HPI abov.e Physical Exam Physical Exam: PE: vitals stable Gen: appears clinically improved today, NAD HEENT: mucous membranes are moist Pulm: CTAB, normal resp effort CV: reg rate and rhythm, S1/2 heard, no peripheral edema ABD: +epigastric TTP has improved/resolved, NTND Neuro: no gross focal deficits, memory and speech intact. CN 2-12 grossly i ntact MUSCK: 5/5 strength throughout, ambulatory at her baseline PSYCH: euthymic, makes good eye contact, A&O x 3 Results & Data Results & Data Vital Signs (Past 12 Hours) Vital Signs Temp Pulse Resp BP Pulse Ox O2 Del Method 06/29/22 07:43 36.7 C 68 17 131/87 97 Room Air 06/28/22 22:25 36.8 C 75 16 109/70 95 Room Air Medications Administered Current Inpatient Medications Acetaminophen (Acetaminophen 325 Mg Tab) 650 mg PO Q4H PRN PRN Reason: pain/fever Stop: 07/27/22 03:23 Last Admin: 06/28/22 07:41 Dose: 650 mg Buspirone HCl (Buspirone 5 Mg Tab) 10 mg PO BID ALEX Stop: 07/27/22 08:59 Last Admin: 06/28/22 20:14 Dose: 10 mg Duloxetine HCl (Duloxetine Hcl 60 Mg Cap) 60 mg PO QAM [facility] Stop: 07/27/22 08:59 Last Admin: 06/28/22 07:42 Dose: 60 mg Enoxaparin Sodium (Enoxaparin Inj 40 Mg/0.4 Ml Syr) 40 mg SQ Q24H [facility]LEX Stop: 07/27/22 08:59 Last Admin: 06/28/22 07:42 Dose: Not Given Fluticasone Propionate (Fluticasone Propionate Na Spr 16 Gm Btl) 2 sprays NA DAILY PRN PRN Reason: Allergy Symptoms Stop: 07/27/22 03:23 Famotidine 20 mg/ Syringe 5 mls @ 2.5 mls/min IV BID [facility] Stop: 07/27/22 08:59 Last Admin: 06/28/22 20:14 Dose: 2.5 mls/min Morphine Sulfate (Morphine Sulfate 2 Mg/Ml Carp) 2 mg IV Q4H PRN PRN Reason: Severe Pain 7-10 Stop: 07/11/22 15:49 Ondansetron HCl (Ondansetron Inj 2 Mg/Ml 2 Ml Vial) 4 mg IV Q6H PRN PRN Reason: Nausea Stop: 07/27/22 03:23 Last Admin: 06/29/22 07:07 Dose: 4 mg Polyethylene Glycol (Polyethylene (Miralax) 17 Gm Pack) 17 gm PO DAILY PRN PRN Reason: Constipation Stop: 07/27/22 03:23 Sucralfate (Sucralfate 1 Gm Tab) 1 gm PO QPM [facility] Stop: 07/27/22 20:59 Last Admin: 06/28/22 20:14 Dose: 1 gm Trazodone HCl (Trazodone Hcl 100 Mg Tab) 100 mg PO HS [facility] Stop: 07/27/22 20:59 Last Admin: 06/28/22 20:14 Dose: 100 mg
[2022-06-29] MEDS: DULoxetine HCL 60 MG CAP PO SCH (08:47)
[2022-06-29] MEDS: busPIRone 5 MG TAB PO SCH (08:47)
[2022-06-29] MEDS: ENOXAPARIN INJ 40 MG/0.4 ML SYR SQ SCH (08:48)
[2022-06-29] MEDS: FAMOTIDINE 20 MG in SYRINGE 3 ML IV SCH (08:51)
--- NOTE | 2022-07-01 09:40 | Discharge Summary ---
Discharge Summary Date of Service July 01, 2022 Principal Dx & Hospital Course #1 = Principal Diagnosis (1) Acute pancreatitis: First episode, unclear etiology. Denies heavy EtOH use. Cont LR as she is improved. Pain meds PRN. Known h/o IBS-C and takes Linzess on occasion. No persistent loose stools reported. Feeling she could tolerate clears, advanced diet to clears. Plan is for outpatient followup with GI for EGD/EUS (2) GERD (gastroesophageal reflux disease): history of transoral incisionless fundoplication (TID) procedure in 2019 by [facility]. Cont linzess and pepcid for now. Patient was also historically on a PPI, which is not on her current home medication list. Would consider adding this back if symptoms worsened (3) Depression: Chronic, stable. Cont home medications including Buspar and Duloxetine. Lovenox Full code Dispo-to home when pancreatitis resolves and she is tolerating solid food again. Martine Vidales DO [facility] Hospitalist Discharge Exam PE: vitals stable Gen: appears clinically improved today, NAD HEENT: mucous membranes are moist Pulm: CTAB, normal resp effort CV: reg rate and rhythm, S1/2 heard, no peripheral edema ABD: +epigastric TTP has improved/resolved, NTND Neuro: no gross focal deficits, memory and speech intact. CN 2-12 grossly intact MUSCK: 5/5 strength throughout, ambulatory at her baseline PSYCH: euthymic, makes good eye contact, A&O x 3 Updated Medication List Medication Instructions Recorded Confirmed Type duloxetine 60 mg capsule,delayed 60 mg PO QAM 03/01/19 06/26/22 History release (Cymbalta) fluticasone propionate 50 2 spray intranasal DAILY PRN 08/14/20 06/26/22 History mcg/actuation nasal Allergy Symptoms spray,suspension loratadine 10 mg tablet (Claritin) 10 mg PO QAM PRN Allergic Symptoms 08/14/20 06/26/22 History sucralfate 1 gram tablet (Carafate) 1 g PO QPM 02/12/21 06/26/22 History linaclotide 145 mcg capsule 145 mcg PO DAILY PRN Abdominal 02/14/21 06/26/22 History (Linzess) Discomfort buspirone 10 mg tablet 10 mg PO BID 02/15/21 06/26/22 History trazodone 100 mg tablet 100 mg PO HS 06/26/22 06/26/22 History Hospital Stay Data Consultations 06/27/22 00:50 ED Decision to Admit Stat 06/27/22 08:00 Consult Gastroenterology Routine Diagnostic Imagining Performed 06/26/22 21:41 CT Abd and Pelvis [CT abd pelvis IV con only] Stat Pending Results Patient Have Any Pending Studies at Discharge: No Discharge Instructions Given to Patient (Per Discharging Provider) Please follow-up with your primary care physician within one week of discharge to [facility] after returning home from the hospital. [facility] should be contacting you to set up the endoscopic ultrasound in the next couple of weeks. It was a pleasure taking care of you! Please call if you have any questions or problems. You can reach a [facility] hospitalist on duty at [facility] 24 hours a day by calling [phone]. Take care of yourself. Martine Vidales, DO [facility]
== END 2022-06-29 11:21 | disposition home or self-care (01) | DRG 440 ==
LOC: 3N 20:16 → ED 20:16 → SUATTDRO 06-27 01:25 → 3N 06-27 02:49

== ENCOUNTER 2023-12-28 19:30 | Observation (INO) ==
[2023-12-28 20:08] LABS: Appearance Urine Clear (Clear); Bilirubin Urine Negative (Negative); Blood Urine Negative (Negative); Color Urine Yellow; Glucose Urine UA Negative (Negative); Ketones Urine Negative (Negative); Leukocyte Esterase Urine Negative (Negative); Nitrite Urine Negative (Negative); Protein Urine Negative (Negative); Urobilinogen Urine Negative (Negative)
[2023-12-28 20:12] LABS: Basophils # (auto) 0.06 K/uL (0.00-0.20); Basophils % (auto) 0.7 %; Eosinophils # (auto) 0.14 K/uL (0.00-0.50); Eosinophils % (auto) 1.6 %; Hemoglobin 13.6 g/dl (12.0-16.0); Immature Granulocytes # (auto) 0.01 K/uL (0.01-0.20); Immature Granulocytes % (auto) 0.1 %; Lymphocytes # (auto) 1.48 K/uL (1.20-3.40); Lymphocytes % (auto) 17.4 %; Mean Corpuscular Hemoglobin 31.3 pg (25.0-34.0); Mean Platelet Volume 8.4 fL (9.4-12.4); Monocytes # (auto) 0.58 K/uL (0.11-0.59); Monocytes % (auto) 6.8 %; Neutrophils # (auto) 6.24 K/uL (1.40-6.50); Neutrophils % (auto) 73.4 %; Platelet Count 295 K/uL (130-400); RDW Coefficient of Variation 12.5 % (11.5-14.5); RDW Standard Deviation 42.5 fL (36.4-46.3); Red Blood Count 4.35 M/uL (4.20-5.40); White Blood Count 8.51 K/ul (4.8-10.8)
[2023-12-28 20:30] LABS: Albumin Level 4.8 gm/dl (3.4-5.0); BUN Creatinine Ratio 18.4 (10-20); Bilirubin,Total 0.4 mg/dl (0.2-1.0); Calcium 9.6 mg/dl (8.6-10.3); Creatinine Clr Calc Pharmacy 82.7 ml/min; Est GFR (African American) 97.3 ml/min; Est GFR (Non-African American) 83.9 ml/min; Globulin 2.4 gm/dl (2.5-4.0); Potassium 3.8 mmol/L (3.5-5.1); Total Protein 7.2 gm/dl (6.0-8.3)
[2023-12-28 20:37] LABS: Pregnancy Test, Serum Negative (Negative)
[2023-12-28] MEDS: ONDANSETRON INJ 2 MG/ML 2 ML VIAL IV STA (21:17)
[2023-12-28] MEDS ORDERED: oxyCODONE HCL IR 5 MG TAB (IMMEDIATE RELEASE) PO PRN (21:20)
[2023-12-28] MEDS: MoRPHine SULFATE 4 MG/ML 1 ML CARP\\VIAL IV PRN (21:21)
--- NOTE | 2023-12-28 21:30 | Emergency Department Note ---
Impression & Plan Epigastric abdominal pain, Pancreatitis, Enteritis ED Provider Note NAME: BRYAN CARRANZA AGE: 38 SEX: F : 1985 ARRIVES VIA: Walk-In INFORMANT: [Patient] ED PROVIDER(S): [Rony Castellon MD] CHIEF COMPLAINT: Abdominal pain HISTORY OF PRESENT ILLNESS: The patient is a 38-year-old female who presents with some mid to upper abdominal pain which began about 3 hours ago. She states the pain is worse when she moves around. No nausea or vomiting, no fever. There has been no trauma. No urinary complaints. The patient has had pancreatitis 2 times before, she is concerned she again has pancreatitis. Of note, she does not consume alcohol. PMHx/PSHx/Social Hx: See Below PHYSICAL EXAM: GENERAL: Patient is in no acute distress. At times tearful discussing her symptoms. HEENT: No acute trauma, normocephalic atraumatic, mucous membranes moist, no nasal congestion. NECK: No stridor, no adenopathy, no meningismus, trachea is midline. LUNGS: Clear to auscultation bilaterally, no wheeze, no rhonchi, breath sounds equal. HEART: Without murmurs gallops or rubs, regular rate and rhythm. ABDOMEN: Soft, tender in the epigastrium, no distention. EXTREMITIES: No cyanosis, full range of motion of all the joints without pain or difficulty. NEUROLOGIC: Oriented x 3, no acute motor or sensory deficits, no focal weakness. SKIN: No jaundice, no diaphoresis. DIFFERENTIAL DIAGNOSIS: Pancreatitis, bowel obstruction, ulcer, gastritis, diverticulitis, among others. EMERGENCY DEPARTMENT PROCEDURES: MEDICAL DECISION MAKING: There is no leukocytosis or concerning anemia. There is a normal platelet count. No renal failure or significant electrolyte abnormality. No concerning liver enzyme elevation. Lipase is elevated at 121 consistent with potential early pancreatitis. testing was negative. Urinalysis did not show infection. Abdominal and pelvis do not show any acute surgical process. An enteritis was suspected. On exam, the patient was not toxic or febrile. She was tender in the epigastrium. Patient received IV saline 1 L. She was given IV Zofran and IV morphine. I talked to the patient about options. She does not feel safe with discharge. The patient will be hospitalized for bowel rest, lipase trending, pain control and hydration. I spoke with case management, the on-call hospitalist was consulted. In short, the patient appears to have early pancreatitis. There could be an enteritis present here compounding her presentation. Prior/Outside records/notes reviewed: None ECG per my interpretation: Indication was abdominal pain. The ECG shows a normal sinus rhythm with a rate of 62. There is no acute ST elevation, no PVCs. QTc is 410. Continuous Cardiac Monitoring per my interpretation: An order was placed for continuous cardiac monitoring. The monitor shows a rate of 64 with normal sinus rhythm. Imaging/x-ray results per my interpretation: Chronic Medical/Social conditions affecting care: History of previous pancreatitis. Care/Management discussed with: Case management, the on-call hospitalist. Level of care consideration(s): After review of the information above and other included data: --I believe the patient requires escalation of care to admission DISPOSITION: Admission Past Med/Surg History Problem List (Updated 12/29/23 @ 01:41 by Rony Castellon MD) Enteritis (Acute) Pancreatitis (Acute) Epigastric abdominal pain (Acute) GERD (gastroesophageal reflux disease) Medical marijuana use Abdominal pain, acute (Acute) Acute pancreatitis (Acute) Pain at surgical site H/O umbilical hernia repair (02/20/21) Open Umbilical Hernia Repair- Al Lizama DO, FACS 02/20/2021 Obesity (BMI 30.0-34.9) Hx laparoscopic cholecystectomy 08/22/2020 Dr. Garvin Umbilical hernia Anemia Allergic rhinitis Endometriosis (Chronic) Chronic pelvic pain in female S/P laparoscopic hysterectomy S/P unilateral salpingo-oophorectomy Encounter for pre-operative examination Medical History History of stomach ulcers Depression Anxiety Surgical History History of colonoscopy History of hysterectomy with unilateral oophorectomy d/t endometriosis (right removed) History of bilateral tubal ligation History of dilatation and curettage History of esophagogastroduodenoscopy (EGD) History of tooth extraction Family History Mother Family history of reaction to anesthesia SLOW TO WAKE UP Diabetes Lung cancer Father Cerebral aneurysm Social History Smoking Status: Never smoker Second Hand Exposure: No; Do You Dip or Chew Tobacco: No; Hx Alcohol Use: No Hx Substance Use: Yes Last Used Substance: Hours (ago) Substance Use Type Other:: MEDICAL MARIJUANA CARD-VAPING DAILY PRN Preferred Language: [place] Communication Ability: Effective Pilot 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: No Beliefs That Will Affect Care: None marital status: Single Current Living Situation: Family Current Living Situation Comment: Lives with fiance and DAUGHTER current occupational status: unemployed and disabled current occupation: HAS NOT WORKED 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 How many Children do You have: 2 Other Information That Helps Us Care for You: No Feels Safe at Home: Yes Safety Concerns: Feels Safe At This Time during the past year weight has: decreased > 10 lbs Assistive Devices: Glasses Allergies Allergies Allergy/AdvReac Type Severity Reaction Status Date / Time clindamycin Allergy Intermediate muscle Verified 12/28/23 22:51 aches/metal taste in mouth Penicillins Allergy Unknown UNKNOWN, Verified 12/28/23 22:51 CHILD ALLERGY doxycycline AdvReac Mild Metallic Verified 12/28/23 22:51 Taste Home Meds Home Medications Medication Instructions Recorded Confirmed duloxetine 60 mg capsule,delayed 60 mg PO QAM 03/01/19 08/07/22 release (Cymbalta) fluticasone propionate 50 2 spray intranasal DAILY PRN 08/14/20 08/07/22 mcg/actuation nasal Allergy Symptoms spray,suspension loratadine 10 mg tablet (Claritin) 10 mg PO QAM PRN Allergic Symptoms 08/14/20 12/28/23 linaclotide 145 mcg capsule 145 mcg PO DAILY PRN Abdominal 02/14/21 12/28/23 (Linzess) Discomfort buspirone 10 mg tablet 15 mg PO BID 02/15/21 08/07/22 trazodone 100 mg tablet 100 mg PO HS 06/26/22 12/28/23 linaclotide 290 mcg capsule mcg 12/28/23 (Linzess) Previous Rx's Medication Instructions Recorded ondansetron 4 mg disintegrating 4 mg PO Q6H PRN nausea and 07/20/23 tablet vomiting #12 tabs mupirocin 2 % topical ointment 1 applic topical TID #15 grams 11/10/23 Results & Data (ED) Vital Signs Vital Signs - 24 hr 12/28/23 19:33 12/28/23 20:29 12/28/23 21:21 Temperature 36.8 C Temperature Source Temporal Artery Scan Pulse Rate 88 65 Pulse Rate [Finger] 64 Pulse Rate from SpO2 Sensor Pulse Rhythm [Finger] Pulse Strength [Finger] Respiratory Rate 17 20 Respiratory Effort / Characteristics Non-Labored Spontaneous Non-Labored Spontaneous Respiratory Depth Normal Normal Respiratory Pattern Regular Blood Pressure 176/107 H Blood Pressure [Right Arm] 109/61 Blood Pressure Mean 130 Blood Pressure Mean [Right Arm] 77 Pulse Oximetry 99 97 Oxygen Delivery Method Room Air Room Air Sepsis Recent Fever Within 48 Hours No Sepsis New/Unexplained Change in Mental Status No Sepsis Action Taken by Nursing No Action Required 12/28/23 21:54 12/28/23 22:06 12/28/23 23:06 Temperature Temperature Source Pulse Rate 63 60 Pulse Rate [Finger] 57 L Pulse Rate from SpO2 Sensor 58 L Pulse Rhythm [Finger] Regular Pulse Strength [Finger] Normal Respiratory Rate 21 19 13 Respiratory Effort / Characteristics Respiratory Depth Normal Respiratory Pattern Regular Blood Pressure 124/78 Blood Pressure [Right Arm] 135/86 Blood Pressure Mean 93 Blood Pressure Mean [Right Arm] 102 Pulse Oximetry 98 98 97 Oxygen Delivery Method Room Air Room Air Sepsis Recent Fever Within 48 Hours Sepsis New/Unexplained Change in Mental Status Sepsis Action Taken by Nursing 12/28/23 23:36 Temperature Temperature Source Pulse Rate 61 Pulse Rate [Finger] Pulse Rate from SpO2 Sensor 63 Pulse Rhythm [Finger] Pulse Strength [Finger] Respiratory Rate 12 Respiratory Effort / Characteristics Respiratory Depth Respiratory Pattern Blood Pressure Blood Pressure [Right Arm] Blood Pressure Mean Blood Pressure Mean [Right Arm] Pulse Oximetry 96 Oxygen Delivery Method Room Air Sepsis Recent Fever Within 48 Hours Sepsis New/Unexplained Change in Mental Status Sepsis Action Taken by [facility] Medications Current Medication List: was personally reviewed by me Laboratory Data Attestation: I reviewed the patient's lab results. 12/28/23 19:54 12/28/23 19:54 Lab Results 12/28/23 12/28/23 Range/Units 19:49 19:54 WBC 8.51 (4.8-10.8) K/ul RBC 4.35 (4.20-5.40) M/uL Hgb 13.6 (12.0-16.0) g/dl Hct 40.0 (37.0-47.0) % MCV 92.0 (80.0-100.0) fL MCH 31.3 (25.0-34.0) pg MCHC 34.0 (32.0-36.0) g/dL RDW Std Deviation 42.5 (36.4-46.3) fL RDW Coeff of Leopoldo 12.5 (11.5-14.5) % Plt Count 295 (130-400) K/uL MPV 8.4 L (9.4-12.4) fL Immature Gran % (Auto) 0.1 % Neut % (Auto) 73.4 % Lymph % (Auto) 17.4 % Kinney % (Auto) 6.8 % Eos % (Auto) 1.6 % Baso % (Auto) 0.7 % Neut # (Auto) 6.24 (1.40-6.50) K/uL Lymph # (Auto) 1.48 (1.20-3.40) K/uL Kinney # (Auto) 0.58 (0.11-0.59) K/uL Eos # (Auto) 0.14 (0.00-0.50) K/uL Baso # (Auto) 0.06 (0.00-0.20) K/uL Immature Gran # (Auto) 0.01 (0.01-0.20) K/uL Sodium 137 (136-145) mmol/L Potassium 3.8 (3.5-5.1) mmol/L Chloride 103 (98-107) mmol/L Carbon Dioxide 27 (21-32) mmol/L Anion Gap 7 (3-11) BUN 16 (6-23) mg/dl Creatinine 0.87 (0.6-1.2) mg/dl Est Cr Clr Drug Dosing 82.7 ml/min Est GFR ( Amer) 97.3 ml/min Est GFR (Non-Af Amer) 83.9 ml/min BUN/Creatinine Ratio 18.4 (10-20) Glucose 89 (70-99(Fasting)) mg/dl Calcium 9.6 (8.6-10.3) mg/dl Total Bilirubin 0.4 (0.2-1.0) mg/dl AST 21 (13-39) U/L ALT 18 (7-52) U/L Alkaline Phosphatase 65 (34-104) U/L Total Protein 7.2 (6.0-8.3) gm/dl Albumin 4.8 (3.4-5.0) gm/dl Globulin 2.4 L (2.5-4.0) gm/dl Albumin/Globulin Ratio 2.0 (0.9-2) Lipase 121 H (11-82) U/L HCG, Qual Negative (Negative) Urine Color Yellow Urine Appearance Clear (Clear) Urine pH 6.0 (4.5-7.5) Ur Specific Dugger 1.010 (1.000-1.030) Urine Protein Negative (Negative) Urine Glucose (UA) Negative (Negative) Urine Ketones Negative (Negative) Urine Blood Negative (Negative) Urine Nitrite Negative (Negative) Urine Bilirubin Negative (Negative) Urine Urobilinogen Negative (Negative) Ur Leukocyte Esterase Negative (Negative) Administered Medications Acetaminophen (Acetaminophen 325 Mg Tab) 650 mg PO QID PRN PRN Reason: pain/fever Stop: 01/27/24 21:19 Last Admin: 12/29/23 00:58 Dose: 650 mg Documented By: ANASTASIIA Lactated Ringer's (Lr) 1,000 mls @ 200 mls/hr IV .Q5H ONE Stop: 12/29/23 02:19 Last Admin: 12/28/23 22:43 Dose: 200 mls/hr Documented By: LIVIA Ketorolac Tromethamine (Ketorolac Tromethamine 15 Mg/Ml Vial) 15 mg IV Q6H PRN PRN Reason: Pain Stop: 01/02/24 21:19 Last Admin: 12/29/23 00:58 Dose: 15 mg Documented By: ANASTASIIA Discontinued Medications Sodium Chloride (Nss) 1,000 mls @ 999 mls/hr IV .Q1H1M ONE Stop: 12/28/23 22:13 Last Infusion: 12/28/23 22:43 Dose: Infused Documented By: Admin: 12/28/23 21:40 Dose: 999 mls/hr Documented By: KAILEY Ioversol (Optiray 320 100ml) 92 ml IV ONCE ONE Stop: 12/28/23 21:39 Last Admin: 12/28/23 21:38 Dose: 92 ml Documented By: TREY Morphine Sulfate (Morphine Sulfate 4 Mg/Ml 1 Ml Carp\Vial) 4 mg IV Q30M PRN PRN Reason: Pain Stop: 01/11/24 21:12 Last Admin: 12/28/23 21:21 Dose: 4 mg Documented By: KAILEY Ondansetron HCl (Ondansetron Inj 2 Mg/Ml 2 Ml Vial) 4 mg IV NOW STA Stop: 12/28/23 21:14 Last Admin: 12/28/23 21:20 Dose: 4 mg Documented By: Admin: 12/28/23 21:17 Dose: 4 mg Documented By: KAILEY Trazodone HCl (Trazodone Hcl 50 Mg Tab) 100 mg PO NOW STA Stop: 12/29/23 01:19 Last Admin: 12/29/23 01:33 Dose: 100 mg Documented By: ANASTASIIA Imaging Data Radiologist's Impression: Abdomen/Pelvis CT 12/28/23 21:12 Exam(s): CT ABDOMEN + PELVIS With Contrast IV Amt: 92 ml optiray 320 EXAM: CT Abdomen and Pelvis With Intravenous Contrast CLINICAL HISTORY: Reason for exam: pancreatitis. TECHNIQUE: Axial computed tomography images of the abdomen and pelvis with intravenous contrast. Automated exposure control was utilized for the study. A dose lowering technique was utilized adhering to the principles of ALARA. CONTRAST: Patient received 92 ml optiray 320 of IV contrast COMPARISON: No relevant prior studies available. FINDINGS: Lung bases: Unremarkable. No mass. No consolidation. ABDOMEN: Liver: Unremarkable. No mass. Gallbladder and bile ducts: Unremarkable. No calcified stones. No ductal dilation. Pancreas: Unremarkable. No mass. No ductal dilation. Spleen: Unremarkable. No splenomegaly. Adrenals: Unremarkable. No mass. Kidneys and ureters: Unremarkable. No solid mass. No hydronephrosis. Stomach and bowel: Mild fluid-filled small bowel, concerning for mild enteritis. No obstruction. PELVIS: Appendix: No findings to suggest acute appendicitis. Bladder: Unremarkable. No mass. Reproductive: Unremarkable as visualized. ABDOMEN and PELVIS: Intraperitoneal space: Unremarkable. No free air. No significant fluid collection. Bones/joints: No acute fracture. No dislocation. Soft tissues: Unremarkable. Vasculature: Unremarkable. No abdominal aortic aneurysm. Lymph nodes: Unremarkable. No enlarged lymph nodes. IMPRESSION: Mild fluid-filled small bowel, concerning for mild enteritis. Electronically signed by: Alessandro Le MD 12/28/23 23:19 PM Discharge Plan Visit Data Chief Complaint: Abdominal Pain Stated Complaint: ABD PAIN/TRAVELS TO CHEST, PANCREASE PAIN ED Provider: Feese,Rony J Discharge Problem: Epigastric abdominal pain, Pancreatitis, Enteritis Patient Disposition: Admitted As Inpatient Condition: Fair Discharge Instructions Interventions: ED Discharge Assessment Last Done: 12/29/23 00:19 Discharge Problem: Pancreatitis Qualifiers: Chronicity: acute Pancreatitis type: unspecified pancreatitis type Acute pancreatitis complication: no infection or necrosis Qualified Code(s): K85.90 - Acute pancreatitis without necrosis or infection, unspecified
[2023-12-28] MEDS: OPTIRAY 320 100ml IV ONE (21:38)
[2023-12-28] MEDS: SODIUM CHLORIDE 0.9% 1,000 ML IV ONE (21:40)
[2023-12-28] MEDS: LACTATED RINGER'S 1,000 ML IV ONE (22:43)
--- NOTE | 2023-12-28 23:20 | CT Scan Report ---
Exam(s): CT ABDOMEN + PELVIS With Contrast IV Amt: 92 ml optiray 320 EXAM: CT Abdomen and Pelvis With Intravenous Contrast CLINICAL HISTORY: Reason for exam: pancreatitis. TECHNIQUE: Axial computed tomography images of the abdomen and pelvis with intravenous contrast. Automated exposure control was utilized for the study. A dose lowering technique was utilized adhering to the principles of ALARA. CONTRAST: Patient received 92 ml optiray 320 of IV contrast COMPARISON: No relevant prior studies available. FINDINGS: Lung bases: Unremarkable. No mass. No consolidation. ABDOMEN: Liver: Unremarkable. No mass. Gallbladder and bile ducts: Unremarkable. No calcified stones. No ductal dilation. Pancreas: Unremarkable. No mass. No ductal dilation. Spleen: Unremarkable. No splenomegaly. Adrenals: Unremarkable. No mass. Kidneys and ureters: Unremarkable. No solid mass. No hydronephrosis. Stomach and bowel: Mild fluid-filled small bowel, concerning for mild enteritis. No obstruction. PELVIS: Appendix: No findings to suggest acute appendicitis. Bladder: Unremarkable. No mass. Reproductive: Unremarkable as visualized. ABDOMEN and PELVIS: Intraperitoneal space: Unremarkable. No free air. No significant fluid collection. Bones/joints: No acute fracture. No dislocation. Soft tissues: Unremarkable. Vasculature: Unremarkable. No abdominal aortic aneurysm. Lymph nodes: Unremarkable. No enlarged lymph nodes. IMPRESSION: Mild fluid-filled small bowel, concerning for mild enteritis. Electronically signed by: Alessandro Le MD 12/28/23 23:19 PM
--- NOTE | 2023-12-28 23:57 | History & Physical Report ---
Date of Service December 28, 2023 Assessment & Plan (1) Abdominal pain: Plan: With lipase elevation Possible recurrent pancreatitis History of pancreatic divisum Situational hypertension NAFLD GERD status post surgery anxiety/mood disorder stable past tobacco abuse OBS GMF Analgesia, IVF, clear liquids GI consult re: abdominal pain with lipase elevation DVT prophylaxis. Lovenox subcu Full code Text document was generated using [employer] voice recognition software. It may contain grammatical or spelling errors. Kindly contact undersigned for clarification of any documentation item in question. History of Present Illness Chief Complaint: Abdominal pain Primary Care Provider: Williams Hausre MD History obtained from patient and records. Medical history significant for recurrent pancreatitis, pancreatic divisum as per records, NAFLD, GERD status post surgery, anxiety/mood disorder, past tobacco abuse. Last confinement May 2022 for pancreatitis. Last outpatient [facility] follow-up last July 2023. EUS and personal review of patient's MRI showed BUN/creatinine divisum as per provider note. If pancreatitis recurs, patient will need ERCP with minor sphincterotomy as per documentation. This afternoon patient noted achy mid abdominal pain without nausea/vomiting symptoms. Quality and intensity of pain similar to pancreatitis attack but different location. No recent EtOH or fatty food intake. 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 Allergies Allergy/AdvReac Type Severity Reaction Status Date / Time clindamycin Allergy Intermediate muscle Verified 12/28/23 22:51 aches/metal taste in mouth Penicillins Allergy Unknown UNKNOWN, Verified 12/28/23 22:51 CHILD ALLERGY doxycycline AdvReac Mild Metallic Verified 12/28/23 22:51 Taste Home Medications Medication Instructions Recorded Confirmed Type duloxetine 60 mg capsule,delayed 60 mg PO QAM 03/01/19 08/07/22 History release (Cymbalta) fluticasone propionate 50 2 spray intranasal DAILY PRN 08/14/20 08/07/22 History mcg/actuation nasal Allergy Symptoms spray,suspension loratadine 10 mg tablet (Claritin) 10 mg PO QAM PRN Allergic Symptoms 08/14/20 12/28/23 History linaclotide 145 mcg capsule 145 mcg PO DAILY PRN Abdominal 02/14/21 12/28/23 History (Linzess) Discomfort buspirone 10 mg tablet 15 mg PO BID 02/15/21 08/07/22 History trazodone 100 mg tablet 100 mg PO HS 06/26/22 12/28/23 History ondansetron 4 mg disintegrating 4 mg PO Q6H PRN nausea and 07/20/23 Rx tablet vomiting #12 tabs mupirocin 2 % topical ointment 1 applic topical TID #15 grams 11/10/23 Rx linaclotide 290 mcg capsule mcg 12/28/23 History (Linzess) Past Med/Surg History Problem List (Updated 12/29/23 @ 01:41 by Rony Castellon MD) Enteritis (Acute) Pancreatitis (Acute) Epigastric abdominal pain (Acute) GERD (gastroesophageal reflux disease) Medical marijuana use Abdominal pain, acute (Acute) Acute pancreatitis (Acute) Pain at surgical site H/O umbilical hernia repair (02/20/21) Open Umbilical Hernia Repair- Al Lizama DO, FACS 02/20/2021 Obesity (BMI 30.0-34.9) Hx laparoscopic cholecystectomy 08/22/2020 Dr. Garvin Umbilical hernia Anemia Allergic rhinitis Endometriosis (Chronic) Chronic pelvic pain in female S/P laparoscopic hysterectomy S/P unilateral salpingo-oophorectomy Encounter for pre-operative examination Medical History History of stomach ulcers Depression Anxiety Surgical History History of colonoscopy History of hysterectomy with unilateral oophorectomy d/t endometriosis (right removed) History of bilateral tubal ligation History of dilatation and curettage History of esophagogastroduodenoscopy (EGD) History of tooth extraction Family History Mother Family history of reaction to anesthesia SLOW TO WAKE UP Diabetes Lung cancer Father Cerebral aneurysm Social History Smoking Status: Never smoker Second Hand Exposure: No; Do You Dip or Chew Tobacco: No; Hx Alcohol Use: No Hx Substance Use: Yes Last Used Substance: Hours (ago) Substance Use Type Other:: MEDICAL MARIJUANA CARD-VAPING DAILY PRN Preferred Language: Romanian Communication Ability: Effective Precast Worker Required: No Beliefs That Will Affect Care: None marital status: Single Current Living Situation: Family Current Living Situation Comment: Lives with fiance and DAUGHTER current occupational status: unemployed and disabled current occupation: HAS NOT WORKED 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 How many Children do You have: 2 Other Information That Helps Us Care for You: No Feels Safe at Home: Yes Safety Concerns: Feels Safe At This Time during the past year weight has: decreased > 10 lbs Assistive Devices: Glasses Review of Systems Review of Systems: As per HPI, all other systems reviewed and negative Physical Exam Physical Exam: GENERAL: Comfortable, pleasant, no respiratory distress SKIN: Normal color, warm HEENT: [place] palpebral conjunctivae, no ptosis, dry buccal mucosa NECK : Supple, no tenderness CHEST : CTA, no tenderness HEART : Bradycardic, no obvious murmurs ABDOMEN: Some distention, central abdominal tenderness EXTREMITIES : No LE swelling/tenderness, no other conspicuous deformities noted NEUROLOGIC : Coherent, no facial asymmetry, no other gross focality Results & Data Results & Data Vital Signs (Past 12 Hours) Vital Signs Temp Pulse Pulse Resp BP BP Pulse Ox 12/28/23 22:06 57 L 19 135/86 98 12/28/23 21:54 63 21 98 12/28/23 21:21 65 12/28/23 20:29 64 20 109/61 97 12/28/23 19:33 36.8 C 88 17 176/107 H 99 O2 Del Method 12/28/23 22:06 Room Air 12/28/23 21:54 Room Air 12/28/23 21:21 12/28/23 20:29 Room Air 12/28/23 19:33 Room Air Laboratory Results Laboratory Results WBC 8.51 K/ul (4.8-10.8) 12/28/23 19:54 RBC 4.35 M/uL (4.20-5.40) 12/28/23 19:54 Hgb 13.6 g/dl (12.0-16.0) 12/28/23 19:54 Hct 40.0 % (37.0-47.0) 12/28/23 19:54 MCV 92.0 fL (80.0-100.0) 12/28/23 19:54 MCH 31.3 pg (25.0-34.0) 12/28/23 19:54 MCHC 34.0 g/dL (32.0-36.0) 12/28/23 19:54 RDW Std Deviation 42.5 fL (36.4-46.3) 12/28/23 19:54 RDW Coeff of Leopoldo 12.5 % (11.5-14.5) 12/28/23 19:54 Plt Count 295 K/uL (130-400) 12/28/23 19:54 MPV 8.4 fL (9.4-12.4) L 12/28/23 19:54 Immature Gran % (Auto) 0.1 % 12/28/23 19:54 Neut % (Auto) 73.4 % 12/28/23 19:54 Lymph % (Auto) 17.4 % 12/28/23 19:54 [place] % (Auto) 6.8 % 12/28/23 19:54 Eos % (Auto) 1.6 % 12/28/23 19:54 Baso % (Auto) 0.7 % 12/28/23 19:54 Neut # (Auto) 6.24 K/uL (1.40-6.50) 12/28/23 19:54 Lymph # (Auto) 1.48 K/uL (1.20-3.40) 12/28/23 19:54 [place] # (Auto) 0.58 K/uL (0.11-0.59) 12/28/23 19:54 Eos # (Auto) 0.14 K/uL (0.00-0.50) 12/28/23 19:54 Baso # (Auto) 0.06 K/uL (0.00-0.20) 12/28/23 19:54 Immature Gran # (Auto) 0.01 K/uL (0.01-0.20) 12/28/23 19:54 Sodium 137 mmol/L (136-145) 12/28/23 19:54 Potassium 3.8 mmol/L (3.5-5.1) 12/28/23 19:54 Chloride 103 mmol/L (98-107) 12/28/23 19:54 Carbon Dioxide 27 mmol/L (21-32) 12/28/23 19:54 Anion Gap 7 (3-11) 12/28/23 19:54 BUN 16 mg/dl (6-23) 12/28/23 19:54 Creatinine 0.87 mg/dl (0.6-1.2) 12/28/23 19:54 Est Cr Clr Drug Dosing 82.7 ml/min 12/28/23 19:54 Est GFR ( Amer) 97.3 ml/min 12/28/23 19:54 Est GFR (Non-Af Amer) 83.9 ml/min 12/28/23 19:54 BUN/Creatinine Ratio 18.4 (10-20) 12/28/23 19:54 Glucose 89 mg/dl (70-99(Fasting)) 12/28/23 19:54 Calcium 9.6 mg/dl (8.6-10.3) 12/28/23 19:54 Total Bilirubin 0.4 mg/dl (0.2-1.0) 12/28/23 19:54 AST 21 U/L (13-39) 12/28/23 19:54 ALT 18 U/L (7-52) 12/28/23 19:54 Alkaline Phosphatase 65 U/L (34-104) 12/28/23 19:54 Total Protein 7.2 gm/dl (6.0-8.3) 12/28/23 19:54 Albumin 4.8 gm/dl (3.4-5.0) 12/28/23 19:54 Globulin 2.4 gm/dl (2.5-4.0) L 12/28/23 19:54 Albumin/Globulin Ratio 2.0 (0.9-2) 12/28/23 19:54 Lipase 121 U/L (11-82) H 12/28/23 19:54 HCG, Qual Negative (Negative) 12/28/23 19:54 Urine Color Yellow 12/28/23 19:49 Urine Appearance Clear (Clear) 12/28/23 19:49 Urine pH 6.0 (4.5-7.5) 12/28/23 19:49 Ur Specific [place] 1.010 (1.000-1.030) 12/28/23 19:49 Urine Protein Negative (Negative) 12/28/23 19:49 Urine Glucose (UA) Negative (Negative) 12/28/23 19:49 Urine Ketones Negative (Negative) 12/28/23 19:49 Urine Blood Negative (Negative) 12/28/23 19:49 Urine Nitrite Negative (Negative) 12/28/23 19:49 Urine Bilirubin Negative (Negative) 12/28/23 19:49 Urine Urobilinogen Negative (Negative) 12/28/23 19:49 Ur Leukocyte Esterase Negative (Negative) 12/28/23 19:49 Impressions Abdomen/Pelvis CT 12/28/23 21:12 Exam(s): CT ABDOMEN + PELVIS With Contrast IV Amt: 92 ml optiray 320 EXAM: CT Abdomen and Pelvis With Intravenous Contrast CLINICAL HISTORY: Reason for exam: pancreatitis. TECHNIQUE: Axial computed tomography images of the abdomen and pelvis with intravenous contrast. Automated exposure control was utilized for the study. A dose lowering technique was utilized adhering to the principles of ALARA. CONTRAST: Patient received 92 ml optiray 320 of IV contrast COMPARISON: No relevant prior studies available. FINDINGS: Lung bases: Unremarkable. No mass. No consolidation. ABDOMEN: Liver: Unremarkable. No mass. Gallbladder and bile ducts: Unremarkable. No calcified stones. No ductal dilation. Pancreas: Unremarkable. No mass. No ductal dilation. Spleen: Unremarkable. No splenomegaly. Adrenals: Unremarkable. No mass. Kidneys and ureters: Unremarkable. No solid mass. No hydronephrosis. Stomach and bowel: Mild fluid-filled small bowel, concerning for mild enteritis. No obstruction. PELVIS: Appendix: No findings to suggest acute appendicitis. Bladder: Unremarkable. No mass. Reproductive: Unremarkable as visualized. ABDOMEN and PELVIS: Intraperitoneal space: Unremarkable. No free air. No significant fluid collection. Bones/joints: No acute fracture. No dislocation. Soft tissues: Unremarkable. Vasculature: Unremarkable. No abdominal aortic aneurysm. Lymph nodes: Unremarkable. No enlarged lymph nodes. IMPRESSION: Mild fluid-filled small bowel, concerning for mild enteritis. Electronically signed by: Alessandro Le MD 12/28/23 23:19 PM Diagnostic Findings EKG as per my interpretation :Rate 60, NSR, normal axis, T wave abnormalities inferior leads
[2023-12-29] MEDS: KETOROLAC TROMETHAMINE 15 MG/ML VIAL IV PRN (00:58)
[2023-12-29] MEDS: ACETAMINOPHEN 325 MG TAB PO PRN (00:58)
[2023-12-29] MEDS: traZODone HCL 50 MG TAB PO STA (01:33)
[2023-12-29] MEDS: busPIRone 5 MG TAB PO ONE (02:43)
[2023-12-29] MEDS: LACTATED RINGER'S 1,000 ML IV SCH (03:11)
[2023-12-29] MEDS ORDERED: MoRPHine SULFATE 4 MG/ML 1 ML CARP\\VIAL IV PRN (05:01)
--- OUTSIDE RECORDS SUMMARY | 2023-12-29 05:49 | External Medical Summary | Summary of Care ---
Author Name Unknown Organization [facility] Address [address] [place] [address] Phone [phone] Care Team Providers Care Wool Carder Name Role Phone Murtaza BENTON MD, Williams Payton Primary Care Provider [phone] Reason for Referral * Evaluate & Treat - Unlimited Visits (Within 10 days (routine)) - Pending Review Specialty Diagnoses / Procedures Referred By Rosie briggs Referred To Contact Physical Therapy / Physical Medicine And Rehab Diagnoses Left thigh pain Muscular pain Hanna Angelo MD [address] [facility] [address] [place] [facility] [place] [address] Referral ID Status Reason Start Date Expiration Date Visits Requested Visits Authorized [id number] Pending Review Specialty Services Required 11/25/[phone] Question Answer Referral Priority Within 10 days (routine) Where should this appointment be scheduled? External Reason for Visit * Reason Comments Joint Pain Left hip Encounter Details Date Type Department Care Team (Late st Contact Info) Description 11/25/2023 11:40 AM EDT Office Visit General Internal Medicine [employer] [address] [place] [id number] Hanna Angelo MD [address] [place] [id number] Left thigh pain*; Muscular pain; Medical marijuana use; History of acute pancreatitis Allergies Active Allergy Reactions Criticality Noted Date Comments Clindamycin Other (Please comment) 12/21/2014 Burned taste Muscle pain Doxycycline Low 08/22/2020 Other reaction(s): Metallic Taste Penicillins Unknown 10/07/2007 As a child Other reaction(s): UNKNOWN, CHILD ALLERGY documented as of this encounter (statuses as of 11/25/2023) Medications Medication Sig Dispensed Refills Start Date End Date Status NATURAL SUPPLEMENT Take by mouth daily. Medical marijuana Active Loratadine 10 MG Oral Tablet Take 1 Tablet by mouth in the morning. Active Fluticasone Propionate 50 MCG/ACT Nasal Suspension Administer 1 Broadus into nostril in the morning. Active Ondansetron HCl 4 MG Oral Tablet (Zofran)Indications :Nausea and vomiting, intractability of vomiting not specified, unspecified vomiting type Take 1 Tablet by mouth every 6 hours as needed for Nausea. 30 Tablet 03/14/2021 Active Linzess 290 MCG Oral Capsule (linaCLOtide) Take 1 Capsule by mouth daily before breakfast. 30 Capsule 3 04/03/2023 Active traZODone HCl 100 MG Oral Tablet (Desyrel) TAKE 1 TABLET BY MOUTH EVERYDAY AT BEDTIME 90 Tablet 3 04/13/2023 Active DULoxetine HCl 60 MG Oral Capsule Delayed Release Particles (Cymbalta) TAKE 1 CAPSULE BY MOUTH EVERY DAY DO NOT CRUSH OR CHEW 90 Capsule 1 07/11/2023 Active busPIRone HCl 15 MG Oral Tablet (Buspar) TAKE 1 TABLET BY MOUTH EVERY MORNING AND 1 TAB AT BEDTIME 180 Tablet 2 07/16/2023 Active Cyclobenzaprine HCl 5 MG Oral Tablet (Flexeril)Indicatio ns:Left thigh pain,Muscular pain Take 1 Tablet by mouth 2 times a day as needed for Muscle spasms. 20 Tablet 11/25/2023 Active VitaChew Multiple Vitamin Oral Tablet Chewable Take by mouth every morning. 4 Discontinue d(Medicatio n List Clean Up) hydrOXYzine HCl 25 MG Oral Tablet Take 1 Tablet by mouth every 6 hours as needed for Anxiety. 40 Tablet 2 01/28/2023 4 Discontinue d(Formulary /Cost) Fiber Adult Gummies 2 GM Oral Tablet Chewable Take by mouth. 4 Discontinue d(Medicatio n List Clean Up) documented as of this encounter (statuses as of 11/25/2023) Active Problems Problem Noted Date Diagnosed Date Medical marijuana use 11/13/2022 Depression, major, recurrent, moderate 3 Spondylosis without myelopat hy or radiculopathy, cervical region 07/01/2022 Other spondylosis with radiculopathy, cervical r egion 07/24/2021 Other spondylosis with radiculopathy, lumbar reg ion 01/15/2021 Major depressive disorder, recurrent, mild 09/03 DWAIN (generalized anxiety disorder) 09/03/2018 Other allergic rhinitis 07/30/1999 Overview: ICD-10 update of inactive term documented as of this encounter (statuses as of 11/25/2023) Resolved Problems Problem Noted Date Diagnosed Date Resolved Date RLS (restless legs syndrome) 07/01/2022 07/03/2023 Fatty liver 10/31/2021 07/03/2023 Morbid (severe) obesity due to excess calories 05/02/2019 05/02/2019 Depression with anxiety 05/28/201609/2018 Anemia 09/04/2009 10/04/2021 Encounter for supervision of other normal 05/15/2005 06/03/2005 Overview: ICD-10 update of inactive term ADVANCE DIRECTIVE INFORMATION 04/14/2005 10/04/2021 Overview: No, Advance Directive brochure given to patient. Tobacco use disorder 04/14/2005 016 Normal , first 11/24/200010/2001 Major depressive disorder 07/30/1999 Overview: ICD-10 update of inactive term documented as of this encounter (statuses as of 11/25/2023) Immunizations Name Administration Dates Next Due HPV Vaccine, 4-Valent 09/04/2009 Hepatitis B, 20+ yrs 01/22/1993,08/21/1992,07/17 PPD 09/04/2009,08/28/2008,10/07/2007 Pneumococcal Polysaccharide PPV23 (Pneumovax) 09/04/2009 Seasonal Influenza, PF, 6 M & above, IM , (FluLaval or Fluzone) 01/26/2019 TDAP (age 10 and older)(Boostrix) 10/31/2021 TDAP, Age 7 and older, IM (Adacel) 09/04/2009 documented as of this encounter Social History Tobacco Use Types Packs/Day Years Used Date Smoking Tobacco: Former Cigarettes 1 10 0 10/17/2004 - 10/17/2014 Smokeless Tobacco: Never Alcohol Use Standard Drinks/Week Comments Not Currently 0 (1 standard drink = 0.6 oz pur e alcohol) AUDIT-C Answer Date Recorded Frequency of Alcohol Consumption Never 02/01/2019 Average Number of Drinks Not on file 019 Frequency of Binge Drinking Not on file 07/2018 PHQ-2 Answer Date Recorded PHQ Adult Total Score 0 11/13/2022 Hunger Vital Sign Answer Date Recorded Within the past 12 months, y ou worried that your food would run out before you got the money to buy more. Never true 11/04/19 24 Within the past 12 months, t he food you bought just didn't last and you didn't have money to get more. Never true 11/04/2023 Childcare Answer Date Recorded Do you feel overwhelmed with taking care of a child, family member or friend? No 11/04/2023 Does your family need help f inding childcare? (Household - for ages 0-17 years) Not on file 11/04/2023 Clothing Answer Date Recorded Have you been unable to get clothing when it was really needed? No 11/04/2023 Is your family able to get c lothes or diapers when needed? (Household - for ages 0-17 years) Not on file 11/04/2023 Personal Safety Answer Date Recorded Do you feel unsafe or have concerns for your saf ety? No 11/04/2023 Do you have concerns for you r family's safety? (Household - for ages 0-17 years) Not on file 11/04/2023 Utilities Answer Date Recorded Do you have trouble paying y our heating, water, or electric bill? No 11/04/2023 Is your family able to pay t he heat, water, or electric bill? (Household - for ages 0-17 years) Not on file 11/04/2023 Does your family have access to good internet? (Household - for ages 0-17 years) Not on file 11/04/2023 Employment Status Answer Date Recorded Are you unemployed or without regular income? Ye s 11/04/2023 Does the household have a re gular source of income? (Household - for ages 0-17 years) Not on file 11/04/2023 Social Connections Answer Date Recorded How often do you feel lonely or isolated from th ose around you? Never 11/04/2023 Financial Resource Strain Answer Date R ecorded Do you have any trouble payi ng for your medications, or do you think you might in the future? No 11/04/2023 Does your family have troubl e paying for medicine? (Household - for ages 0-17 years) Not on file 11/04/2023 Transportation Needs Answer Date Record ed Do you have trouble getting a ride to medical visits or work? (Adult - for ages 18 years and over) Not on file 11/04/2023 Does your family have a hard time getting a ride to doctors visits? (Household - for ages 0-17 years) Not on file 11/04/2023 Has lack of transportation k ept you from medical appointments, meetings, work, or from getting things needed for daily living? Check all that apply. No 11/04/2023 Do you (or your family) have trouble finding or paying for a ride (transportation)? (Household - for ages 0-17 years) Not on file 11/04/2023 Housing Stability Answer Date Recorded Do you currently live in a s helter or have no steady place to sleep at night? No 11/04/2023 Do you think you are at risk of becoming homeless? (Adult - for ages 18 years and over) Not on file 11/04/2023 Does your family worry about paying for your home or becoming homeless? (Household - for ages 0-17 years) Not on file 0 11/04/2023 Are you homeless or worried that you might be in the future? No 11/04/2023 Are you (or your family) citlaly eless or worried that you might be in the future? (Household - for ages 0-17 years) Not on file Food Insecurity Answer Date Recorded Do you need food for this week? No 11/04/2023 Are you able to get enough f ood for your family? (Household - for ages 0-17 years) Not on file 11/04/2023 Does your family need food t his week? (Household - for ages 0-17 years) Not on file 11/04/2023 Do you always have enough fo od for your family? (Household - for ages 0-17 years) Not on file 11/04/2023 Sex and Gender Information Value Date Recorded Sex Assigned at Female 08/12/2018 11:00 AM EDT Gender Identity Female 08/12/2018 11:00 AM EDT Sexual Orientation Straight 08/12/2018 11 :00 AM EDT Job Start Date Occupation Industry Not on file Not on file Not on file documented as of this encounter Last Filed Vital Signs Vital Sign Reading Time Taken Comments Blood Pressure 106/64 11/25/2023 12:13 PM EDT Pulse 78 11/25/2023 12:13 PM EDT Temperature 37.1 C (98.8 F) 11/25/2023 12:13 PM E DT Respiratory Rate 18 11/25/2023 12:13 PM EDT Oxygen Saturation - - Inhaled Oxygen Concentration - - Weight 68.6 kg (151 lb 3.2 oz) 11/25/2023 12:13 PM EDT Height - - Body Mass Index 26.78 11/04/2023 8:59 AM EDT documented in this encounter Progress Notes * Hanna Angelo MD - 11/25/2023 12:17 PM EDT SUBJECTIVE: Rosalina Teran is a 38 year old female. Chief Complaint Patient presents with Joint Pain Left hip Nursing Notes: Ciera Hernández LPN 11/25/23 1218 Signed Patient reports worsening pain in her left hip and leg. She called in on 11/09 and spoke with tubing tester. She ended up going to the ED because she couldn't get in to be seen here for a few weeks. She says the ED told her it was musculoskeletal. Certain movements makes the pain worse. HPI: Patient presents today for symptoms of left-sided leg pain ongoing for at least 2 weeks. Seen in the ED 11/10/2023 with pain in her left inner groin as well as an ache on the outer aspect of her thigh worse with certain movements. No injuries or falls, not relieved with Tylenol. X-ray of the pelvis no abnormality. Was advised to use OTC medications for pain, stretches States she has sees chiropractor once a month for adjustments and was told she has scoliosis. No previous lumbar x-ray on file. Continues to complain of pain in the same location States she was hospitalized for pancreatitis and had not been doing much in recently started exercising She had also been seen there for a lump in her right armpit since the previous day was thought to have ingrown hair with cellulitis and prescribed Keflex which she has completed with resolution. Last cbc,bmp -nml Patient Active Problem List Diagnosis Other allergic rhinitis Major depressive disorder, recurrent, mild (HCC) DWAIN (generalized anxiety disorder) Other spondylosis with radiculopathy, lumbar region Other spondylosis with radiculopathy, cervical region Depression, major, recurrent, moderate (HCC) Spondylosis without myelopathy or radiculopathy, cervical region Medical marijuana use Current Outpatient Medications Medication Sig Dispense Refill NATURAL SUPPLEMENT Take by mouth daily. Medical marijuana Loratadine 10 MG Oral Tablet Take 1 Tablet by mouth in the morning. Fluticasone Propionate 50 MCG/ACT Nasal Suspension Administer 1 Broadus into nostril in the morning. Ondansetron HCl 4 MG Oral Tablet (Zofran) Take 1 Tablet by mouth every 6 hours as needed for Nausea. 30 Tablet 0 traZODone HCl 100 MG Oral Tablet (Desyrel) TAKE 1 TABLET BY MOUTH EVERYDAY AT BEDTIME 90 Tablet 3 DULoxetine HCl 60 MG Oral Capsule Delayed Release Particles (Cymbalta) TAKE 1 CAPSULE BY MOUTH EVERY DAY DO NOT CRUSH OR CHEW 90 Capsule 1 busPIRone HCl 15 MG Oral Tablet (Buspar) TAKE 1 TABLET BY MOUTH EVERY MORNING AND 1 TAB AT BEDTIME 180 Tablet 2 Linzess 290 MCG Oral Capsule (linaCLOtide) Take 1 Capsule by mouth daily before breakfast. 30 Capsule 3 No current facility-administered medications for this visit. Review of patient's allergies indicates: Allergen Reactions Clindamycin Other (Please comment) Burned taste Muscle pain Penicillins Unknown As a child Other reaction(s): UNKNOWN, CHILD ALLERGY Doxycycline Other reaction(s): Metallic Taste OBJECTIVE: BP 106/64 | Pulse 78 | Temp 37.1 C (98.8 F) (Tympanic) | Resp 18 | Wt 68.6 kg (151 lb 3.2 oz) |BMI 26.78 kg/m | BSA 1.75 m PHYSICAL EXAM: General: alert, healthy, no distress, well nourished and well developed Heart: regular rate & rhythm, no gallops /murmurs. Lungs: lungs clear to auscultation Extremities: no edema Back: Curvature NORMAL ,Range of motion- normal FROM sanjeev hip and knee jts, c/o pain left lat thigh and inner groin Neuro: alert, gait normal ,motor normal, gross sensation normal, SLR neg sanjeev. ASSESSMENT/PLAN: Left thigh pain (Primary) - Cyclobenzaprine HCl 5 MG Oral Tablet (Flexeril); Take 1 Tablet by mouth 2 times a day as needed for Muscle spasms. - PHYSICAL THERAPY REFERRAL OP - XR L SPINE AP AND LATERAL; Future; Expected date: 11/25/2023 Muscular pain - Cyclobenzaprine HCl 5 MG Oral Tablet (Flexeril); Take 1 Tablet by mouth 2 times a day as needed for Muscle spasms. - PHYSICAL THERAPY REFERRAL OP - XR L SPINE AP AND LATERAL; Future; Expected date: 11/25/2023 [id number] ibuprofen 200 mg 2 tablets 2 to 3 times a day for 3-5 days for pain Tril flexeril prn The potential side effects of this medication have been discussed with the patient. Call if any significant problems with these are experienced. Medical marijuana use History of acute pancreatitis Follow-up: Return if symptoms worsen or fail to improve. | Check-out note: Xr today (This note was completed using the dictation program Fluency Direct. As such, there may be misspellings, word substitutions, or other variations that should not change the essence of the clinical content of this encounter note. If there is need for further clarification, please direct questions to the provider listed above.) Patient and / caregiver verbalize understanding of above instructions and agrees with plan of care. Hanna Angelo MD 11/25/2023 documented in this encounter Nursing Notes * Ciera Hernández LPN - 11/25/2023 12:11 PM EDT Patient reports worsening pain in her left hip and leg. She called in on 11/09 and spoke with tubing tester. She ended up going to the ED because she couldn't get in to be seen here for a few weeks. She says the ED told her it was musculoskeletal. Certain movements makes the pain worse. documented in this encounter Plan of Treatment Upcoming Encounters Date Type Department Care Team (Late st Contact Info) Description 11/04/2024 8:40 AM EDT Office Visit Family Practice [facility] [place] [address] [facility] [place] [address] Williams Hauser III, MD [address] [facility] [place] [address] Pending Results Name Type Priority Associated Diagnoses Date /Time XR L SPINE AP AND LATERAL Medical Imaging Routine Left thigh pain Muscular pain 11/25/2023 12:47 PM EDT Scheduled Orders Name Type Priority Associated Diagnoses Orde r Schedule XR L SPINE AP AND LATERAL Medical Imaging Routine Left thigh pain Muscular pain Expected: 11/25/2023, Expires: 12/25/2024 Scheduled Referrals Name Type Priority Associated Diagnoses Orde r Schedule PHYSICAL THERAPY REFERRAL OP Referral Within 10 days (routine) Left thigh pain Muscular pain Ordered: 11/25/2023 Health Maintenance Due Date Last Done Comments COVID-19 Vaccine (2022- season) 2022 Depression Monitoring 11/14/2023 11/13/2022 Influenza Vaccine (FLU shot) (#1) 2023 01/26/2019 Diabetes Screening 11/05/2026 11/06/2023, 0 10/27/2022, 10/31/2021, Additional history exists DTap/Tdap Vaccines (8 - Td or Tdap) 11/01/2031 10/31/2021, 09/04/2009, 03/19/1999, Additional history exists Pneumococcal Vaccine: Pediatrics (0 to 5 Years) and At-Risk Patients (6 to 64 Years) Aged Out 09/04/2009 No longer eligible based on patient's age to complete this topic MENINGOCOCCAL (MENACTRA/MENVEO) Aged Out No longer eligible based on patient's age to complete this topic documented as of this encounter Medical Devices Implanted Type Area Butcher Apprentice Device Identifier Shelf Expiration Date Model / Serial / Lot Cartridge Esophyx Z+ - [id number] Implanted:Qty: 1 on 04/28/2019 by Ellie Garcia MD at OR [facility] [employer] 11/03/2020 [id number] / / [id number] Description:fasteners 10@11, 10@1, 4@5, 4@7 placed at GE junction (code [id number]) documented as of this encounter Visit Diagnoses Diagnosis Left thigh pain- Primary Pain in limb Muscular pain Mylagia and myositis, unspecified Medical marijuana use Encounter for long-term (current) use of other medications History of acute pancreatitis Personal history of other diseases of digestive system documented in this encounter Care Teams Wool Carder Relationship Specialty Start Date End Date Williams Hauser III, MD [address] [facility] [place] [address] PCP - General Family Medicine 10/27/22 documented as of this encounter"
[2023-12-29 07:01] LABS: Basophils # (auto) 0.06 K/uL (0.00-0.20); Basophils % (auto) 0.9 %; Eosinophils # (auto) 0.21 K/uL (0.00-0.50); Eosinophils % (auto) 3.1 %; Hematocrit (blood only) 37.8 % (37.0-47.0); Hemoglobin 12.7 g/dl (12.0-16.0); Immature Granulocytes # (auto) 0.02 K/uL (0.01-0.20); Immature Granulocytes % (auto) 0.3 %; Lymphocytes # (auto) 2.22 K/uL (1.20-3.40); Lymphocytes % (auto) 33.1 %; Mean Corpuscular Hemoglobin 31.2 pg (25.0-34.0); Mean Corpuscular Hgb Conc 33.6 g/dL (32.0-36.0); Mean Corpuscular Volume 92.9 fL (80.0-100.0); Mean Platelet Volume 8.5 fL (9.4-12.4); Monocytes # (auto) 0.59 K/uL (0.11-0.59); Monocytes % (auto) 8.8 %; Neutrophils % (auto) 53.8 %; Platelet Count 244 K/uL (130-400); RDW Coefficient of Variation 12.8 % (11.5-14.5); RDW Standard Deviation 43.8 fL (36.4-46.3); Red Blood Count 4.07 M/uL (4.20-5.40)
[2023-12-29 07:21] LABS: Albumin Globulin Ratio 1.9 (0.9-2); Albumin Level 3.7 gm/dl (3.4-5.0); BUN Creatinine Ratio 16.2 (10-20); Bilirubin,Total 0.4 mg/dl (0.2-1.0); Calcium 8.6 mg/dl (8.6-10.3); Creatinine Clr Calc Pharmacy 96.9 ml/min; Est GFR (African American) 118.3 ml/min; Est GFR (Non-African American) 102.1 ml/min; Globulin 1.9 gm/dl (2.5-4.0); Potassium 4.3 mmol/L (3.5-5.1); Total Protein 5.6 gm/dl (6.0-8.3)
[2023-12-29] MEDS ORDERED: MoRPHine SULFATE 2 MG/ML CARP IV PRN (07:38)
[2023-12-29] MEDS: PROMETHAZINE 6.25 MG/50.25 ML BAG IV PRN (08:19)
[2023-12-29] MEDS: busPIRone 15 MG TAB PO SCH (08:20)
[2023-12-29] MEDS: ENOXAPARIN INJ 40 MG/0.4 ML SYR SQ SCH (08:20)
[2023-12-29] MEDS: DULoxetine HCL 60 MG CAP PO SCH (08:20)
--- NOTE | 2023-12-29 10:00 | Gastrointestinal Consultation ---
Date of Consultation December 29, 2023 Assessment & Plan (1) Enteritis: 38 year old female w/ fatty liver, GERD s/p TIF, depression/anxiety, recurrent pancreatitis admitted with abd pain, nausea/vomiting (bilious emesis with specks of BRB) imaging showing enteritis. Se is hemodynamically stable, HGB 12.7 w/o BUN elevation and notes her pain is improved this AM No acute indication for EGD evaluation Supportive measures IVF for hydration Antiemetics PRN Analgesia PRN IV PPI today then PO PPI 40 mg once daily Submit stool studies if she develops diarrhea Trend H&H Monitor and document GI output I spent a total of 60 minutes on the date of service in review of patient's record, and previously obtained information in person and appropriate medical visit, discussion and education of plan, with patient and/or caregiver, placing orders for tests/referral/procedures as medically necessary and documentation of pertinent clinical information in patient's medical records for their visit today. Supervising Physician Co-Signing Physician Notes I examined the patient and reviewed patient's chart , laboratory data and imaging studies. I agree with with assessment and plan of care as suggested by advanced practice provider. Acute onset of abdominal pain, vomiting and diarrhea. Mildly elevated lipase, normal pancreas on the CT scan do not support the diagnosis of acute pancreatitis. Likely acute enteritis. Continue supportive measures. The patient with diarrhea today, comprehensive stool studies were ordered. History of Present Illness Reason for Consultation: abd pain Requesting Physician: Tito Cisneros MD Attending Physician: Tito Cisneros MD History of Present Illness 38 year old female with fatty liver, GERD s/p TIF, depression/anxiety, recurrent pancreatitis and others who presented to the ER w/ abd pain. GI asked to evaluate. She notes she developed midline, upper abd pain about 1 day ago. Pain suddenly occured, severe and associated with nause and emesis x 1. The emesis w as mostly bilious but she did not some specks of BRB in emesis. Denies black or bloody stools. Last BM was 12/28/23. This AM she reports her abd pain has complely resolved. HGB 12.7 Tbili 0.4 AST 23 ALT 27 ALKP 53 Lipase 121 CTAP 2023: Liver: Unremarkable. No mass. Gallbladder and bile ducts: Unremarkable. No calcified stones. No ductal dilation. Pancreas: Unremarkable. No mass. No ductal dilation.Mild fluid-filled small bowel, concerning for mild enteritis. EGD 2022: Normal esophagus. - A TIF fundoplication was found. The wrap appears intact. - Normal stomach. - Normal duodenal bulb and second portion of the duodenum. EUS 2022: - There was no sign of significant pathology in the ampulla. - There was no sign of significant pathology in the common bile duct. - Evidence of a cholecystectomy. - There was no evidence of significant pathology in the visualized portion of the liver. - There was no sign of significant pathology in the entire pancreas. - Pancreas divisum was suspected. - Endosonographic images of the left adrenal gland were unremarkable. - The celiac trunk was endosonographically normal. - No specimens collected. Colonoscopy 2023:The examined portion of the ileum was normal. - Non-bleeding internal hemorrhoids. - The examination was otherwise normal. - No specimens collected. Allergies Allergy/AdvReac Type Severity Reaction Status Date / Time clindamycin Allergy Intermediate muscle Verified 12/28/23 22:51 aches/metal taste in mouth Penicillins Allergy Unknown UNKNOWN, Verified 12/28/23 22:51 CHILD ALLERGY doxycycline AdvReac Mild Metallic Verified 12/28/23 22:51 Taste Home Medications Medication Instructions Recorded Confirmed Type duloxetine 60 mg capsule,delayed 60 mg PO QAM 03/01/19 08/07/22 History release (Cymbalta) fluticasone propionate 50 2 spray intranasal DAILY PRN 08/14/20 08/07/22 History mcg/actuation nasal Allergy Symptoms spray,suspension loratadine 10 mg tablet (Claritin) 10 mg PO QAM PRN Allergic Symptoms 08/14/20 12/28/23 History linaclotide 145 mcg capsule 145 mcg PO DAILY PRN Abdominal 02/14/21 12/28/23 History (Linzess) Discomfort buspirone 10 mg tablet 15 mg PO BID 02/15/21 08/07/22 History trazodone 100 mg tablet 100 mg PO HS 06/26/22 12/28/23 History ondansetron 4 mg disintegrating 4 mg PO Q6H PRN nausea and 07/20/23 Rx tablet vomiting #12 tabs mupirocin 2 % topical ointment 1 applic topical TID #15 grams 11/10/23 Rx linaclotide 290 mcg capsule mcg 12/28/23 History (Linzess) Patient History Medical History History of stomach ulcers Depression Anxiety Surgical History History of colonoscopy History of hysterectomy with unilateral oophorectomy d/t endometriosis (right removed) History of bilateral tubal ligation History of dilatation and curettage History of esophagogastroduodenoscopy (EGD) History of tooth extraction Family History Mother Family history of reaction to anesthesia SLOW TO WAKE UP Diabetes Lung cancer Father Cerebral aneurysm Social History Smoking Status: Never smoker Second Hand Exposure: No; Do You Dip or Chew Tobacco: No; Hx Alcohol Use: No Hx Substance Use: Yes Last Used Substance: Hours (ago) Substance Use Type Other:: MEDICAL MARIJUANA CARD-VAPING DAILY PRN Preferred Language: Kazakh Communication Ability: Effective Fiberglass Laminator Required: No Beliefs That Will Affect Care: None marital status: Single Current Living Situation: Family Current Living Situation Comment: Lives with fiance and DAUGHTER current occupational status: unemployed and disabled current occupation: HAS NOT WORKED 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 How many Children do You have: 2 Other Information That Helps Us Care for You: No Feels Safe at Home: Yes Safety Concerns: Feels Safe At This Time during the past year weight has: decreased > 10 lbs Assistive Devices: Glasses Review of Systems Review of Systems: All other findings negative except as noted in HPI. Physical Exam Constitutional: WD/WN, vitals as above Results & Data Vital Signs (Past 12 Hours) Vital Signs Temp Pulse Pulse Resp BP BP Pulse Ox 12/29/23 09:12 12/29/23 07:56 36.4 C L 54 L 16 141/82 H 97 12/29/23 00:46 12/29/23 00:46 36.6 C 57 L 18 161/73 H 99 12/29/23 00:44 36.6 C 57 L 18 161/73 H 99 12/29/23 00:03 56 L 12 123/81 98 12/28/23 23:36 61 12 96 12/28/23 23:06 60 13 124/78 97 12/28/23 22:06 57 L 19 135/86 98 12/28/23 21:54 63 21 98 O2 Del Method 12/29/23 09:12 Room Air 12/29/23 07:56 Room Air 12/29/23 00:46 Room Air 12/29/23 00:46 Room Air 12/29/23 00:44 Room Air 12/29/23 00:03 Room Air 12/28/23 23:36 Room Air 12/28/23 23:06 12/28/23 22:06 Room Air 12/28/23 21:54 Room Air Laboratory Results 12/29/23 12/28/23 12/28/23 Range/Units 06:42 19:54 19:49 WBC 6.70 8.51 (4.8-10.8) K/ul RBC 4.07 L 4.35 (4.20-5.40) M/uL Hgb 12.7 13.6 (12.0-16.0) g/dl Hct 37.8 40.0 (37.0-47.0) % MCV 92.9 92.0 (80.0-100.0) fL MCH 31.2 31.3 (25.0-34.0) pg MCHC 33.6 34.0 (32.0-36.0) g/dL RDW Std Deviation 43.8 42.5 (36.4-46.3) fL RDW Coeff of Leopoldo 12.8 12.5 (11.5-14.5) % Plt Count 244 295 (130-400) K/uL MPV 8.5 L 8.4 L (9.4-12.4) fL Immature Gran % (Auto) 0.3 0.1 % Neut % (Auto) 53.8 73.4 % Lymph % (Auto) 33.1 17.4 % [place] % (Auto) 8.8 6.8 % Eos % (Auto) 3.1 1.6 % Baso % (Auto) 0.9 0.7 % Neut # (Auto) 3.60 6.24 (1.40-6.50) K/uL Lymph # (Auto) 2.22 1.48 (1.20-3.40) K/uL [place] # (Auto) 0.59 0.58 (0.11-0.59) K/uL Eos # (Auto) 0.21 0.14 (0.00-0.50) K/uL Baso # (Auto) 0.06 0.06 (0.00-0.20) K/uL Immature Gran # (Auto) 0.02 0.01 (0.01-0.20) K/uL Sodium 141 137 (136-145) mmol/L Potassium 4.3 3.8 (3.5-5.1) mmol/L Chloride 107 103 (98-107) mmol/L Carbon Dioxide 33 H 27 (21-32) mmol/L Anion Gap 1 L 7 (3-11) BUN 12 16 (6-23) mg/dl Creatinine 0.74 0.87 (0.6-1.2) mg/dl Est Cr Clr Drug Dosing 96.9 82.7 ml/min Est GFR ( Amer) 118.3 97.3 ml/min Est GFR (Non-Af Amer) 102.1 83.9 ml/min BUN/Creatinine Ratio 16.2 18.4 (10-20) Glucose 93 89 (70-99(Fasting)) mg/dl Calcium 8.6 9.6 (8.6-10.3) mg/dl Total Bilirubin 0.4 0.4 (0.2-1.0) mg/dl AST 23 21 (13-39) U/L ALT 27 18 (7-52) U/L Alkaline Phosphatase 53 65 (34-104) U/L Total Protein 5.6 L D 7.2 (6.0-8.3) gm/dl Albumin 3.7 4.8 (3.4-5.0) gm/dl Globulin 1.9 L 2.4 L (2.5-4.0) gm/dl Albumin/Globulin Ratio 1.9 2.0 (0.9-2) Triglycerides 61 (0-150) mg/dl Lipase 121 H (11-82) U/L HCG, Qual Negative (Negative) Urine Color Yellow Urine Appearance Clear (Clear) Urine pH 6.0 (4.5-7.5) Ur Specific Valentine 1.010 (1.000-1.030) Urine Protein Negative (Negative) Urine Glucose (UA) Negative (Negative) Urine Ketones Negative (Negative) Urine Blood Negative (Negative) Urine Nitrite Negative (Negative) Urine Bilirubin Negative (Negative) Urine Urobilinogen Negative (Negative) Ur Leukocyte Esterase Negative (Negative) PG Care Time/CCT Total # of Minutes Spent Total Time Spent with Patient: Total time spent is greater than 50% in coordination of care (as documented) at patient's floor/unit and/or counseling patient: Coding Level of Care Code 44025 INT INP/OBS CARE 255MIN Diagnoses Enteritis K52.9
[2023-12-29] MEDS: PANTOprazole 40 MG in SYRINGE 0 ML IV SCH (10:46)
--- NOTE | 2023-12-29 11:09 | Electrocardiogram Report ---
Test Reason : Blood Pressure : */* mmHG Vent. Rate : 62 BPM Atrial Rate : 62 BPM P-R Int : 138 ms QRS Dur : 66 ms QT Int : 404 ms P-R-T Axes : -23 -7 -18 degrees QTcB Int : 410 ms Normal sinus rhythm possible Inferior infarct , age undetermined Abnormal ECG When compared with ECG of 26-Jun-2022 20:39, Inferior infarct is now Present Confirmed by Mamadou Irizarry ([id number]) on 12/29/2023 11:09:36 AM Referred By: REFERRED SELF Confirmed By: Mamadou Irizarry
--- NOTE | 2023-12-29 13:33 | Hospitalist Progress Note ---
Date of Service December 29, 2023 Assessment & Plan (1) Abdominal pain: Plan: With lipase elevation Possible recurrent pancreatitis History of pancreatic divisum Patient presented with abdominal pain CT abdomen and pelvis showed mild fluid-filled small bowel, concerning for mild enteritis. Lipase slightly elevated to 121 units/L Supportive care with analgesia, IV fluids GI consulted for comanagement; no indication for EGD. Recommend IV PPI, then p.o. 40 mg from tomorrow a.m. Monitor CBC Chronic conditions: Situational hypertension NAFLD GERD status post surgery anxiety/mood disorder stable- continue home meds past tobacco abuse Please note the above document was generated using voice recognition software. It may contain grammatical, syntax or spelling errors. Any formal questions or concerns about the content, text or information contained within the body of this dictation should be directly addressed to the provider for clarification Admission and Anticipated Discharge Date Admission Date: December 28, 2023 Subjective Patient seen and examined at bedside. She is comfortable; not in distress. She reported 2 episode of vomiting with specks of blood today morning Reports epigastric abdominal discomfort Review of Systems Review of Systems: All systems reviewed & are unremarkable except as noted in Subjective Physical Exam Physical Exam: Constitutional: Alert oriented x 3; not in distress. Respiratory: normal respiratory effort, lungs clear to auscultation, no wheeze, rales, rhonchi. Normal insp/exp effort, no accessory muscle use Cardiovascular: RRR, no murmur, no edema Vessels: no JVD or carotid bruit Chest: normal inspection of chest Abdomen: Mild tenderness in epigastric region. Musculoskeletal: no cyanosis or clubbing, extremities motor strength 5/5 Skin: no rashes, warm and dry normal turgor Neurologic: PERRL, EOMI, accommodation nl, no face palsy, no dysarthria CN's II- XI intact bilaterally and moves all extremities Psychiatric: A+Ox3, euthymic affect Results & Data Results & Data Vital Signs (Past 12 Hours) Vital Signs Temp Pulse Resp BP Pulse Ox O2 Del Method 12/29/23 09:12 Room Air 12/29/23 07:56 36.4 C L 54 L 16 141/82 H 97 Room Air
[2023-12-29 14:54] LABS: Basophils # (auto) 0.05 K/uL (0.00-0.20); Basophils % (auto) 0.9 %; Eosinophils # (auto) 0.16 K/uL (0.00-0.50); Eosinophils % (auto) 2.9 %; Hematocrit (blood only) 38.1 % (37.0-47.0); Hemoglobin 12.7 g/dl (12.0-16.0); Immature Granulocytes # (auto) 0.01 K/uL (0.01-0.20); Immature Granulocytes % (auto) 0.2 %; Lymphocytes # (auto) 1.27 K/uL (1.20-3.40); Lymphocytes % (auto) 23.2 %; Mean Corpuscular Hemoglobin 31.1 pg (25.0-34.0); Mean Corpuscular Hgb Conc 33.3 g/dL (32.0-36.0); Mean Corpuscular Volume 93.4 fL (80.0-100.0); Mean Platelet Volume 8.8 fL (9.4-12.4); Monocytes # (auto) 0.47 K/uL (0.11-0.59); Monocytes % (auto) 8.6 %; Neutrophils # (auto) 3.52 K/uL (1.40-6.50); Neutrophils % (auto) 64.2 %; Platelet Count 251 K/uL (130-400); RDW Coefficient of Variation 12.8 % (11.5-14.5); RDW Standard Deviation 43.8 fL (36.4-46.3); Red Blood Count 4.08 M/uL (4.20-5.40); White Blood Count 5.48 K/ul (4.8-10.8)
[2023-12-29] MEDS: ONDANSETRON INJ 2 MG/ML 2 ML VIAL IV PRN (15:08)
[2023-12-29 20:03] LABS: Adenovirus F 40/41 PCR Not Detected (NotDetected); Astrovirus PCR Not Detected (NotDetected); Campylobacter PCR Not Detected (NotDetected); Cryptosporidium PCR Not Detected (NotDetected); Cyclospora cayetanensis PCR Not Detected (NotDetected); Entamoeba histolytica PCR Not Detected (NotDetected); Enteroaggregative E.coli(EAEC) Not Detected (NotDetected); Enteropathogenic E.coli (EPEC) Not Detected (NotDetected); Enterotoxigenic E.coli (ETEC) Not Detected (NotDetected); Giardia lamblia PCR Not Detected (NotDetected); Plesiomonas shigelloides PCR Not Detected (NotDetected); Rotavirus A PCR Not Detected (NotDetected); Salmonella PCR Not Detected (NotDetected); Sapovirus PCR Not Detected (NotDetected); Shiga-like Toxin E.coli (STEC) Not Detected (NotDetected); Shigella/Enteroinvasive E.coli Not Detected (NotDetected); Vibrio cholerae PCR Not Detected (NotDetected); Vibrio species PCR Not Detected (NotDetected); Yersinia enterocolitica PCR Not Detected (NotDetected)
[2023-12-29 20:14] LABS: Norovirus GI/GII PCR DETECTED (NotDetected)
[2023-12-29] MEDS: traZODone HCL 50 MG TAB PO SCH (21:42)
[2023-12-30 07:30] VITALS: BP 124/79; PULSE 53; RESP 18; TEMP 98.6; O2SAT 94
[2023-12-30 07:36] LABS: Basophils # (auto) 0.08 K/uL (0.00-0.20); Eosinophils # (auto) 0.23 K/uL (0.00-0.50); Eosinophils % (auto) 2.9 %; Hematocrit (blood only) 38.9 % (37.0-47.0); Hemoglobin 13.3 g/dl (12.0-16.0); Immature Granulocytes # (auto) 0.02 K/uL (0.01-0.20); Immature Granulocytes % (auto) 0.3 %; Lymphocytes # (auto) 1.87 K/uL (1.20-3.40); Mean Corpuscular Hemoglobin 31.6 pg (25.0-34.0); Mean Corpuscular Hgb Conc 34.2 g/dL (32.0-36.0); Mean Corpuscular Volume 92.4 fL (80.0-100.0); Mean Platelet Volume 8.8 fL (9.4-12.4); Monocytes # (auto) 0.64 K/uL (0.11-0.59); Monocytes % (auto) 8.2 %; Neutrophils # (auto) 4.96 K/uL (1.40-6.50); Neutrophils % (auto) 63.6 %; Platelet Count 269 K/uL (130-400); RDW Coefficient of Variation 12.6 % (11.5-14.5); RDW Standard Deviation 43.1 fL (36.4-46.3); Red Blood Count 4.21 M/uL (4.20-5.40)
[2023-12-30 07:56] LABS: BUN Creatinine Ratio 10.2 (10-20); Creatinine Clr Calc Pharmacy 81.5 ml/min; Est GFR (African American) 95.9 ml/min; Est GFR (Non-African American) 82.8 ml/min; Potassium 4.5 mmol/L (3.5-5.1)
--- NOTE | 2023-12-30 10:06 | Gastroenterology Progress Note ---
Date of Service December 30, 2023 Assessment & Plan (1) Enteritis: Plan: 38 year old female w/ fatty liver, GERD s/p TIF, depression/anxiety, recurrent pancreatitis admitted with abd pain, nausea/vomiting (bilious emesis with specks of BRB) imaging showing enteritis. She has now tested positive for Norovirus, she is clinically improving, requesting discharge No GI contraindication to discharge No acute indication for EGD evaluation May advance diet as tolerated Supportive measures IVF for hydration Antiemetics PRN Analgesia PRN PO PPI 40 mg once daily Recall as needed. I spent a total of 40 minutes on the date of service in review of patient's record, and previously obtained information in person and appropriate medical visit, discussion and education of plan, with patient and/or caregiver, placing orders for tests/referral/procedures as medically necessary and documentation of pertinent clinical information in patient's medical records for their visit today. Admission and Anticipated Discharge Date Admission Date: December 28, 2023 Supervising Physician Co-Signing Physician Notes Patient was discharged before I could see her. Subjective Developed loose stools yesterday. Stool studies show norovirus. Is feeling better this AM. Less pain. Less nausea/vomiting. Stools are less frequent. Review of Systems Review of Systems: All other findings negative except as noted in HPI. Physical Exam Constitutional: WD/WN, vitals as above Respiratory: normal respiratory effort, lungs clear to auscultation Cardiovascular: Rate/Rhythm: regular rate and regular rhythm Gastrointestinal (Abdomen): normal bowel sounds, soft, nontender, no hepatosplenomegaly Skin: no rashes, warm and dry Results & Data Results & Data Vital Signs (Past 12 Hours) Vital Signs Temp Pulse Resp BP Pulse Ox O2 Del Method 12/30/23 08:11 Room Air 12/30/23 07:29 37.0 C 53 L 18 124/79 94 Room Air Laboratory Results 12/30/23 12/29/23 12/29/23 Range/Units 06:46 18:13 14:13 WBC 7.80 5.48 (4.8-10.8) K/ul RBC 4.21 4.08 L (4.20-5.40) M/uL Hgb 13.3 12.7 (12.0-16.0) g/dl Hct 38.9 38.1 (37.0-47.0) % MCV 92.4 93.4 (80.0-100.0) fL MCH 31.6 31.1 (25.0-34.0) pg MCHC 34.2 33.3 (32.0-36.0) g/dL RDW Std Deviation 43.1 43.8 (36.4-46.3) fL RDW Coeff of Leopoldo 12.6 12.8 (11.5-14.5) % Plt Count 269 251 (130-400) K/uL MPV 8.8 L 8.8 L (9.4-12.4) fL Immature Gran % (Auto) 0.3 0.2 % Neut % (Auto) 63.6 64.2 % Lymph % (Auto) 24.0 23.2 % [place] % (Auto) 8.2 8.6 % Eos % (Auto) 2.9 2.9 % Baso % (Auto) 1.0 0.9 % Neut # (Auto) 4.96 3.52 (1.40-6.50) K/uL Lymph # (Auto) 1.87 1.27 (1.20-3.40) K/uL [place] # (Auto) 0.64 H 0.47 (0.11-0.59) K/uL Eos # (Auto) 0.23 0.16 (0.00-0.50) K/uL Baso # (Auto) 0.08 0.05 (0.00-0.20) K/uL Immature Gran # (Auto) 0.02 0.01 (0.01-0.20) K/uL Sodium 142 (136-145) mmol/L Potassium 4.5 (3.5-5.1) mmol/L Chloride 108 H (98-107) mmol/L Carbon Dioxide 31 (21-32) mmol/L Anion Gap 3 (3-11) BUN 9 (6-23) mg/dl Creatinine 0.88 (0.6-1.2) mg/dl Est Cr Clr Drug Dosing 81.5 ml/min Est GFR ( Amer) 95.9 ml/min Est GFR (Non-Af Amer) 82.8 ml/min BUN/Creatinine Ratio 10.2 (10-20) Glucose 96 (70-99(Fasting)) mg/dl Calcium 9.0 (8.6-10.3) mg/dl Stl C. cayetanensis PCR Not Detected (NotDetected) Stool Rotavirus A PCR Not Detected (NotDetected) Stl Adenov F 40/41 PCR Not Detected (NotDetected) Stool Astrovirus (PCR) Not Detected (NotDetected) Stool Campylobacter PCR Not Detected (NotDetected) Stl C. diff Tox B Gene Negative Cdiff Gene (Neg) Stool Cryptosporidium PCR Not Detected (NotDetected) Stl E.coli Shiga Tox PCR Not Detected (NotDetected) Stl Enterotoxigenic E PCR Not Detected (NotDetected) Stool EPEC (PCR) Not Detected (NotDetected) Stool EAEC (PCR) Not Detected (NotDetected) Stl E. histolytica PCR Not Detected (NotDetected) Stool Giardia Lamblia PCR Not Detected (NotDetected) Stool Salmonella PCR Not Detected (NotDetected) Stool Sapovirus (PCR) Not Detected (NotDetected) Stl P. shigelloides PCR Not Detected (NotDetected) Stl Shigella/EIEC PCR Not Detected (NotDetected) St Y.enterocolitica PCR Not Detected (NotDetected) Stool Vibrio (PCR) Not Detected (NotDetected) Stl Vibrio cholerae PCR Not Detected (NotDetected) Stl Norovirus GI/GII PCR DETECTED A* (NotDetected) PG Care Time/CCT Total # of Minutes Spent Total Time Spent with Patient: Total time spent is greater than 50% in coordination of care (as documented) at patient's floor/unit and/or counseling patient: Coding Level of Care Code 88802 SUB INP/OBS CARE 2/35MIN Diagnoses Enteritis K52.9
--- NOTE | 2023-12-30 12:12 | Hospitalist Progress Note ---
Date of Service December 30, 2023 Assessment & Plan (1) Abdominal pain: Plan: Enteritis Likely due to norovirus H/O recurrent pancreatitis, pancreatic divisum Possible Gastritis --CT ABD:Mild fluid-filled small bowel, concerning for mild enteritis. -- Stool studies positive for norovirus Continue IV fluids, advance diet as tolerated Started on Protonix 40 mg daily as recommended by GI Appreciate GI input Plan to be discharged home today Chronic conditions: Situational hypertension NAFLD GERD status post surgery anxiety/mood disorder stable- continue home meds past tobacco abuse Continue home medications as able Code Status Full Code DVT Px: Lovenox SQ Admission and Anticipated Discharge Date Admission Date: December 28, 2023 Subjective Patient is seen and examined at bedside States feeling a lot better today Denies any chest pain, dyspnea, nausea, vomiting, abdominal pain, diarrhea Tolerating current diet Eager to get discharged Review of Systems Review of Systems: All systems reviewed & are unremarkable except as noted in Subjective Physical Exam Physical Exam: Physical Exam: Vitals signs as noted above General Appearance:Moderately built and nourished, no apparent distress Head: normocephalic, Atraumatic Eyes: normal inspection, EOMI Neck: supple, Trachea midline Respiratory/Chest: Normal breath sounds, CTA, No accessory muscle use Cardiovascular: S1, S2, No murmur Abdomen/GI:Soft, Non tender, Bowel sounds present Extremities/Musculoskeletal:normal inspection, no edema Neurologic/Psych:AAOX3, grossly no focal neurological deficits Skin: normal color, warm Results & Data Results & Data Vital Signs (Past 12 Hours) Vital Signs Temp Pulse Resp BP Pulse Ox O2 Del Method 12/30/23 08:11 Room Air 12/30/23 07:29 37.0 C 53 L 18 124/79 94 Room Air Laboratory Results Short CBC 12/29/23 12/30/23 Range/Units 14:13 06:46 WBC 5.48 7.80 (4.8-10.8) K/ul Hgb 12.7 13.3 (12.0-16.0) g/dl Hct 38.1 38.9 (37.0-47.0) % Plt Count 251 269 (130-400) K/uL BMP 12/30/23 06:46 Sodium 142 Potassium 4.5 Chloride 108 H Carbon Dioxide 31 BUN 9 Creatinine 0.88 Glucose 96 Calcium 9.0
--- NOTE | 2023-12-30 14:50 | Discharge Summary ---
Date of Service December 30, 2023 Admission HPI Per Admitting Provider History obtained from patient and records. Medical history significant for recurrent pancreatitis, pancreatic divisum as per records, NAFLD, GERD status post surgery, anxiety/mood disorder, past tobacco abuse. Last confinement May 2022 for pancreatitis. Last outpatient [facility] follow-up last July 2023. EUS and personal review of patient's MRI showed BUN/creatinine divisum as per provider note. If pancreatitis recurs, patient will need ERCP with minor sphincterotomy as per documentation. This afternoon patient noted achy mid abdominal pain without nausea/vomiting symptoms. Quality and intensity of pain similar to pancreatitis attack but different location. No recent EtOH or fatty food intake. 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 Admission Exam Per Admitting Provider GENERAL: Comfortable, pleasant, no respiratory distress SKIN: Normal color, warm HEENT: [place] palpebral conjunctivae, no ptosis, dry buccal mucosa NECK : Supple, no tenderness CHEST : CTA, no tenderness HEART : Bradycardic, no obvious murmurs ABDOMEN: Some distention, central abdominal tenderness EXTREMITIES : No LE swelling/tenderness, no other conspicuous deformities noted NEUROLOGIC : Coherent, no facial asymmetry, no other gross focality Principal Diagnosis Enteritis Discharge Data Allergies Allergy/AdvReac Type Severity Reaction Status Date / Time clindamycin Allergy Intermediate muscle Verified 12/28/23 22:51 aches/metal taste in mouth Penicillins Allergy Unknown UNKNOWN, Verified 12/28/23 22:51 CHILD ALLERGY doxycycline AdvReac Mild Metallic Verified 12/28/23 22:51 Taste Consultations 12/28/23 21:16 ED Decision to Admit Stat 12/29/23 02:32 Consult Gastroenterology Routine Procedures Performed Laboratory Results WBC 7.80 K/ul (4.8-10.8) 12/30/23 06:46 RBC 4.21 M/uL (4.20-5.40) 12/30/23 06:46 Hgb 13.3 g/dl (12.0-16.0) 12/30/23 06:46 Hct 38.9 % (37.0-47.0) 12/30/23 06:46 MCV 92.4 fL (80.0-100.0) 12/30/23 06:46 MCH 31.6 pg (25.0-34.0) 12/30/23 06:46 MCHC 34.2 g/dL (32.0-36.0) 12/30/23 06:46 RDW Std Deviation 43.1 fL (36.4-46.3) 12/30/23 06:46 RDW Coeff of Leopoldo 12.6 % (11.5-14.5) 12/30/23 06:46 Plt Count 269 K/uL (130-400) 12/30/23 06:46 MPV 8.8 fL (9.4-12.4) L 12/30/23 06:46 Immature Gran % (Auto) 0.3 % 12/30/23 06:46 Neut % (Auto) 63.6 % 12/30/23 06:46 Lymph % (Auto) 24.0 % 12/30/23 06:46 [place] % (Auto) 8.2 % 12/30/23 06:46 Eos % (Auto) 2.9 % 12/30/23 06:46 Baso % (Auto) 1.0 % 12/30/23 06:46 Neut # (Auto) 4.96 K/uL (1.40-6.50) 12/30/23 06:46 Lymph # (Auto) 1.87 K/uL (1.20-3.40) 12/30/23 06:46 [place]rell # (Auto) 0.64 K/uL (0.11-0.59) H 12/30/23 06:46 Eos # (Auto) 0.23 K/uL (0.00-0.50) 12/30/23 06:46 Baso # (Auto) 0.08 K/uL (0.00-0.20) 12/30/23 06:46 Immature Gran # (Auto) 0.02 K/uL (0.01-0.20) 12/30/23 06:46 Sodium 142 mmol/L (136-145) 12/30/23 06:46 Potassium 4.5 mmol/L (3.5-5.1) 12/30/23 06:46 Chloride 108 mmol/L (98-107) H 12/30/23 06:46 Carbon Dioxide 31 mmol/L (21-32) 12/30/23 06:46 Anion Gap 3 (3-11) 12/30/23 06:46 BUN 9 mg/dl (6-23) 12/30/23 06:46 Creatinine 0.88 mg/dl (0.6-1.2) 12/30/23 06:46 Est Cr Clr Drug Dosing 81.5 ml/min 12/30/23 06:46 Est GFR ( Amer) 95.9 ml/min 12/30/23 06:46 Est GFR (Non-Af Amer) 82.8 ml/min 12/30/23 06:46 BUN/Creatinine Ratio 10.2 (10-20) 12/30/23 06:46 Glucose 96 mg/dl (70-99(Fasting)) 12/30/23 06:46 Calcium 9.0 mg/dl (8.6-10.3) 12/30/23 06:46 Total Bilirubin 0.4 mg/dl (0.2-1.0) 12/29/23 06:42 AST 23 U/L (13-39) 12/29/23 06:42 ALT 27 U/L (7-52) 12/29/23 06:42 Alkaline Phosphatase 53 U/L (34-104) 12/29/23 06:42 Total Protein 5.6 gm/dl (6.0-8.3) L D 12/29/23 06:42 Albumin 3.7 gm/dl (3.4-5.0) 12/29/23 06:42 Globulin 1.9 gm/dl (2.5-4.0) L 12/29/23 06:42 Albumin/Globulin Ratio 1.9 (0.9-2) 12/29/23 06:42 Triglycerides 61 mg/dl (0-150) 12/29/23 06:42 Lipase 121 U/L (11-82) H 12/28/23 19:54 HCG, Qual Negative (Negative) 12/28/23 19:54 Urine Color Yellow 12/28/23 19:49 Urine Appearance Clear (Clear) 12/28/23 19:49 Urine pH 6.0 (4.5-7.5) 12/28/23 19:49 Ur Specific [place] 1.010 (1.000-1.030) 12/28/23 19:49 Urine Protein Negative (Negative) 12/28/23 19:49 Urine Glucose (UA) Negative (Negative) 12/28/23 19:49 Urine Ketones Negative (Negative) 12/28/23 19:49 Urine Blood Negative (Negative) 12/28/23 19:49 Urine Nitrite Negative (Negative) 12/28/23 19:49 Urine Bilirubin Negative (Negative) 12/28/23 19:49 Urine Urobilinogen Negative (Negative) 12/28/23 19:49 Ur Leukocyte Esterase Negative (Negative) 12/28/23 19:49 Stl C. cayetanensis PCR Not Detected (NotDetected) 12/29/23 18:13 Stool Rotavirus A PCR Not Detected (NotDetected) 12/29/23 18:13 Stl Adenov F 40/41 PCR Not Detected (NotDetected) 12/29/23 18:13 Stool Astrovirus (PCR) Not Detected (NotDetected) 12/29/23 18:13 Stool Campylobacter PCR Not Detected (NotDetected) 12/29/23 18:13 Stl C. diff Tox B Gene Negative Cdiff Gene (Neg) 12/29/23 18:13 Stool Cryptosporidium PCR Not Detected (NotDetected) 12/29/23 18:13 Stl E.coli Shiga Tox PCR Not Detected (NotDetected) 12/29/23 18:13 Stl Enterotoxigenic E PCR Not Detected (NotDetected) 12/29/23 18:13 Stool EPEC (PCR) Not Detected (NotDetected) 12/29/23 18:13 Stool EAEC (PCR) Not Detected (NotDetected) 12/29/23 18:13 Stl E. histolytica PCR Not Detected (NotDetected) 12/29/23 18:13 Stool Giardia Lamblia PCR Not Detected (NotDetected) 12/29/23 18:13 Stool Salmonella PCR Not Detected (NotDetected) 12/29/23 18:13 Stool Sapovirus (PCR) Not Detected (NotDetected) 12/29/23 18:13 Stl P. shigelloides PCR Not Detected (NotDetected) 12/29/23 18:13 Stl Shigella/EIEC PCR Not Detected (NotDetected) 12/29/23 18:13 St Y.enterocolitica PCR Not Detected (NotDetected) 12/29/23 18:13 Stool Vibrio (PCR) Not Detected (NotDetected) 12/29/23 18:13 Stl Vibrio cholerae PCR Not Detected (NotDetected) 12/29/23 18:13 Stl Norovirus GI/GII PCR DETECTED (NotDetected) A* 12/29/23 18:13 Impressions Abdomen/Pelvis CT 12/28/23 21:12 Exam(s): CT ABDOMEN + PELVIS With Contrast IV Amt: 92 ml optiray 320 EXAM: CT Abdomen and Pelvis With Intravenous Contrast CLINICAL HISTORY: Reason for exam: pancreatitis. TECHNIQUE: Axial computed tomography images of the abdomen and pelvis with intravenous contrast. Automated exposure control was utilized for the study. A dose lowering technique was utilized adhering to the principles of ALARA. CONTRAST: Patient received 92 ml optiray 320 of IV contrast COMPARISON: No relevant prior studies available. FINDINGS: Lung bases: Unremarkable. No mass. No consolidation. ABDOMEN: Liver: Unremarkable. No mass. Gallbladder and bile ducts: Unremarkable. No calcified stones. No ductal dilation. Pancreas: Unremarkable. No mass. No ductal dilation. Spleen: Unremarkable. No splenomegaly. Adrenals: Unremarkable. No mass. Kidneys and ureters: Unremarkable. No solid mass. No hydronephrosis. Stomach and bowel: Mild fluid-filled small bowel, concerning for mild enteritis. No obstruction. PELVIS: Appendix: No findings to suggest acute appendicitis. Bladder: Unremarkable. No mass. Reproductive: Unremarkable as visualized. ABDOMEN and PELVIS: Intraperitoneal space: Unremarkable. No free air. No significant fluid collection. Bones/joints: No acute fracture. No dislocation. Soft tissues: Unremarkable. Vasculature: Unremarkable. No abdominal aortic aneurysm. Lymph nodes: Unremarkable. No enlarged lymph nodes. IMPRESSION: Mild fluid-filled small bowel, concerning for mild enteritis. Electronically signed by: Alessandro Le MD 12/28/23 23:19 PM Ordered Studies 12/28/23 21:12 CT abd pelvis IV con only Stat Hospital Course (1) Abdominal pain: Enteritis Likely due to norovirus H/O recurrent pancreatitis, pancreatic divisum Possible Gastritis --CT ABD:Mild fluid-filled small bowel, concerning for mild enteritis. -- Stool studies positive for norovirus Continue IV fluids, advance diet as tolerated Started on Protonix 40 mg daily as recommended by GI Appreciate GI input Plan to be discharged home today Chronic conditions: Situational hypertension NAFLD GERD status post surgery anxiety/mood disorder stable- continue home meds past tobacco abuse Continue home medications as able Code Status Full Code DVT Px: Lovenox SQ Total Time Total Time Spent Total Time Spent (In Minutes): 44 minutes Discharge Plan Discharge Items Patient Disposition: Home - Self-Care Reason For Visit: ABD PAIN Discharge Diagnosis: Enteritis Condition on Discharge: Fair Activity: Per Instructions section Exercise/Sports: Gradually increase as tolerated Non-emergency contact: Primary Care Provider Call non-emergency contact if: you have any medication questions, your symptoms worsen, your pain is concerning for you and you have a fever Follow-up/Referrals: Williams Hauser MD [Primary Care Provider] - (Date & Time 01/06/2024 12:00 PM Provider Williams Hauser III, MD Department [facility] ) Diet: Heart Healthy Addtl Attending Provider Instructions: Follow-up with your primary care physician in 1 week -- Can hold Linzess for diarrhea -- Start taking pantoprazole 40 mg daily as recommended by your president + publisher. Seek immediate medical attention if your symptoms reoccur or worsen Please take all medications as instructed on discharge list below. Please call if you have any questions or problems. You can reach a [facility] hospitalist on duty at [facility] 24 hours a day by calling [phone] Pending Studies at Discharge: No Stand-Alone Forms: [facility], Smoking Cessation Medications and DC Order Prescriptions: New pantoprazole 40 mg tablet,delayed release (DR/EC) 40 mg PO DAILY Qty: 30 1RF Continued Linzess 145 mcg capsule 145 mcg PO DAILY PRN (Reason: Abdominal Discomfort) Rx Instructions: discontined duloxetine [Cymbalta] 60 mg Capsule,Delayed Release(Dr/Ec) 60 mg PO QAM trazodone 100 mg tablet 100 mg PO HS fluticasone propionate 50 mcg/actuation [place],Suspension 2 spray INTRANASAL DAILY PRN (Reason: Allergy Symptoms) Rx Instructions: as needed loratadine [Claritin] 10 mg Tablet 10 mg PO QAM PRN (Reason: Allergic Symptoms) buspirone 10 mg Tablet 15 mg PO BID Rx Instructions: morning and night Linzess 290 mcg capsule ondansetron 4 mg tablet,disintegrating 4 mg PO Q6H PRN (Reason: nausea and vomiting) Qty: 12 0RF mupirocin 2 % ointment 1 applic topical TID Qty: 15 0RF Rx Instructions: discontinued Discharge Orders: Discharge Order (Routine); Ordered 12/30/23 Ordered By: Hussein Zambrano Admission Data Admit Date/Time: 12/28/23 23:58 Attending Provider: Hussein Zambrano Admit Provider: Mike Chu Primary Care Provider: Williams Hauser Other Providers: Mike Chu; Patti Franklin; Gamaliel Wolff; Manasa Gallardo; Cammie Zapata; Kayce Avila; Manju Childs; Phyllis Rodas; Samuel Cloud; Larry Serrato; Jaime Power; Shilpi Samuels; Paolo Wynne; Christina Sumner; Abby Burroughs; Desiree Rojas; Renate aHrmon; Ellie Garcia; Sb Pierre; Myranda Mandujano; Driss Dixon Jr; Joey Cochran; Kobe Lujan; Alonso Garcia; Julio César Saavedra; Dionne Abebe; Antony Gardner I; Awa Watters Other Interventions: Discharge Summary Assessment (RN) Last Done: 12/30/23 13:19
== END 2023-12-30 13:48 | disposition home or self-care (01) ==
LOC: 3N 19:30 → ED 19:30 → SUATTDRO 23:58 → 3N 12-29 00:19

== ENCOUNTER 2024-05-10 21:31 | Inpatient (IN) ==
[2024-05-10 22:00] LABS: Hematocrit (blood only) 42.5 % (37.0-47.0); Hemoglobin 14.4 g/dl (12.0-16.0); Mean Corpuscular Hemoglobin 31.4 pg (25.0-34.0); Mean Corpuscular Hgb Conc 33.9 g/dL (32.0-36.0); Mean Corpuscular Volume 92.6 fL (80.0-100.0); Mean Platelet Volume 8.4 fL (9.4-12.4); Platelet Count 355 K/uL (130-400); RDW Coefficient of Variation 12.2 % (11.5-14.5); RDW Standard Deviation 41.7 fL (36.4-46.3); Red Blood Count 4.59 M/uL (4.20-5.40); White Blood Count 11.26 K/ul (4.8-10.8)
[2024-05-10 22:15] LABS: BUN Creatinine Ratio 13.9 (10-20); Creatinine Clr Calc Pharmacy 100.7 ml/min; Potassium 4.5 mmol/L (3.5-5.1)
[2024-05-10 22:19] LABS: Appearance Urine Clear (Clear); Bilirubin Urine Negative (Negative); Blood Urine Negative (Negative); Color Urine Yellow; Glucose Urine UA Negative (Negative); Ketones Urine Negative (Negative); Leukocyte Esterase Urine Negative (Negative); Nitrite Urine Negative (Negative); Protein Urine Negative (Negative); Specific Gravity Urine 1.009 (1.000-1.030); Urobilinogen Urine Negative (Negative)
[2024-05-10 22:30] LABS: Albumin Globulin Ratio 1.9 (0.9-2); Albumin Level 4.7 gm/dl (3.4-5.0); Bilirubin,Total 0.4 mg/dl (0.2-1.0); Globulin 2.5 gm/dl (2.5-4.0); Total Protein 7.2 gm/dl (6.0-8.3)
[2024-05-10 22:41] LABS: Basophils # (auto) 0.02 K/uL (0.00-0.20); Basophils % (auto) 0.2 %; Immature Granulocytes # (auto) 0.03 K/uL (0.01-0.20); Immature Granulocytes % (auto) 0.3 %; Lymphocytes # (auto) 0.35 K/uL (1.20-3.40); Lymphocytes % (auto) 3.1 %; Monocytes # (auto) 0.15 K/uL (0.11-0.59); Monocytes % (auto) 1.3 %; Neutrophils # (auto) 10.71 K/uL (1.40-6.50); Neutrophils % (auto) 95.1 %; RBC Morphology Unremarkable
--- NOTE | 2024-05-10 23:11 | Emergency Department Note ---
Impression & Plan Abdominal pain, Pancreatitis, Leukocytosis ED Provider Note NAME: BRYAN CARRANZA AGE: 38 SEX: F : 1985 ARRIVES VIA: Walk-In INFORMANT: Patient ED PROVIDER(S): Frank Pedraza DO CHIEF COMPLAINT: Abdominal pain HPI: Patient is a 38-year-old female with a past medical history of pancreatitis, GERD, marijuana use who presents to the ER for epigastric abdominal pain radiating through to her back. She had a EGD with pancreatic stent placed earlier today by Dr. Arben Arce at [facility]. Symptoms started around 5 PM tonight with pain in the stomach going through to the back. Associated with no nausea or vomiting. She denies any dysuria, urgency, or frequency. No headache or change in vision. No chest pain or shortness of breath. No other exacerbating or remitting factors. ADDITIONAL HISTORY OBTAINED: Per HPI Chronic Medical/Social Conditions Affecting Care: Per HPI PAST MEDICAL HISTORY:See Below PAST SURGICAL HISTORY:See Below FAMILY HISTORY:See Below SOCIAL HISTORY:See Below HOME MEDICATIONS:See Below ALLERGIES:See Below VITALS:See Below PHYSICAL EXAMINATION: GENERAL: Sitting up in bed, alert, well appearing, well nourished, no distress, non-toxic EYE EXAM: normal conjunctiva. OROPHARYNX: no exudate, no erythema, lips, buccal mucosa, and tongue normal and mucous membranes are moist NECK: supple, no nuchal rigidity, no adenopathy, non-tender LUNGS: Clear to auscultation. Normal chest wall mechanics HEART: no murmurs, S1 normal and S2 normal ABDOMEN: abdomen soft, tender palpation in the epigastric region, normo-active bowel sounds, no masses, no rebound or guarding. BACK: Back is symmetrical on inspection and there is no deformity, no midline tenderness, no CVA tenderness. SKIN: no rashes and no bruising UPPER EXTREMITIES: upper extremities are grossly normal. LOWER EXTREMITIES: No pitting edema. NEURO EXAM: Normal sensorium, cranial nerves II-XII grossly intact, normal speech, no gross weakness of arms, no gross weakness of legs. MEDICAL DECISION MAKING: Patient is a 38-year-old female who presents ER for the above-stated complaint. IV was established and blood work was obtained. Labs show mild leukocytosis 11,000. No significant anemia. BMP along LFTs bilirubin was unremarkable. Lipase was elevated at 650. UA was clean. CT abdomen pelvis consistent with pancreatitis. Patient was given IV fluids and several doses of IV morphine. She was updated bedside. She she was given Zofran. She was discussed with the hospitalist for further evaluation management and treatment of her acute pancreatitis likely secondary to her recent intervention by gastroenterology and stent placement. Consults/Care Managements Discussions: Per MDM Triage Nursing notes reviewed. Limited review of prior medical records performed Vital Signs: reviewed and remarkable for no significant abnormalities Differential diagnosis: Differential diagnoses includes but is not limited to gastritis, peptic ulcer disease, GERD, gallbladder disease, pancreatitis, small bowel obstruction, appendicitis, diverticulitis, hernia, urinary tract infection, torsion, /ectopic (if female), perforation, trauma, infectious. ER treatment provided: See below Diagnostics interpreted by me include EKG and cardiac monitoring as listed below: -Cardiac Monitoring: An order was placed for continuous cardiac monitoring. The monitor shows a rate of 80 with sinus rhythm. -ECG: none -Laboratory studies:Interpreted by me as stated above in MDM and shown below. Imaging studies: Xrays: As interpreted by me:none CTs show: CT abdomen pelvis per my preliminary interpretation showed no obvious bowel obstruction CT abdomen pelvis per radiology as described above Procedures:none Critical Care: None Past Med/Surg History Problem List (Updated 05/11/24 @ 01:39 by Frank Pedraza DO) Leukocytosis (Acute) Pancreatitis (Acute) Abdominal pain (Acute) Enteritis (Acute) Pancreatitis (Acute) Epigastric abdominal pain (Acute) GERD (gastroesophageal reflux disease) Medical marijuana use Abdominal pain, acute (Acute) Acute pancreatitis (Acute) Pain at surgical site H/O umbilical hernia repair (02/20/21) Open Umbilical Hernia Repair- Al Lizama DO, FACS 02/20/2021 Obesity (BMI 30.0-34.9) Hx laparoscopic cholecystectomy 08/22/2020 Dr. Garvin Umbilical hernia Anemia Allergic rhinitis Endometriosis (Chronic) Chronic pelvic pain in female S/P laparoscopic hysterectomy S/P unilateral salpingo-oophorectomy Encounter for pre-operative examination Medical History History of stomach ulcers Depression Anxiety Surgical History History of colonoscopy History of hysterectomy with unilateral oophorectomy d/t endometriosis (right removed) History of bilateral tubal ligation History of dilatation and curettage History of esophagogastroduodenoscopy (EGD) History of tooth extraction Family History Mother Family history of reaction to anesthesia SLOW TO WAKE UP Diabetes Lung cancer Father Cerebral aneurysm Social History Smoking Status: Current every day smoker Second Hand Exposure: No; Do You Dip or Chew Tobacco: No; Hx Alcohol Use: No Hx Substance Use: Yes Last Used Substance: Hours (ago) Substance Use Type Other:: MEDICAL MARIJUANA CARD-VAPING DAILY PRN Preferred Language: Syrian Communication Ability: Effective Project Management Director Required: No Beliefs That Will Affect Care: None marital status: Single Current Living Situation: Family Current Living Situation Comment: Lives with fiance and DAUGHTER current occupational status: unemployed and disabled current occupation: HAS NOT WORKED 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 How many Children do You have: 2 Feels Safe at Home: Yes during the past year weight has: decreased > 10 lbs Assistive Devices: Glasses Allergies Allergies Allergy/AdvReac Type Severity Reaction Status Date / Time clindamycin Allergy Intermediate muscle Verified 05/10/24 21:42 aches/metal taste in mouth Penicillins Allergy Unknown UNKNOWN, Verified 05/10/24 21:42 CHILD ALLERGY doxycycline AdvReac Mild Metallic Verified 05/10/24 21:42 Taste Home Meds Home Medications Medication Instructions Recorded Confirmed duloxetine 60 mg capsule,delayed 60 mg PO QAM 03/01/19 05/11/24 release (Cymbalta) fluticasone propionate 50 2 spray intranasal DAILY PRN 08/14/20 05/11/24 mcg/actuation nasal Allergy Symptoms spray,suspension loratadine 10 mg tablet (Claritin) 10 mg PO QAM PRN Allergic Symptoms 08/14/20 05/11/24 trazodone 100 mg tablet 100 mg PO HS 06/26/22 05/11/24 buspirone 15 mg tablet 15 mg PO AMHS 05/11/24 05/11/24 linaclotide 290 mcg capsule 290 mcg PO DAILYBB 05/11/24 05/11/24 (Linzess) pantoprazole 40 mg tablet,delayed 40 mg PO QAM 05/11/24 05/11/24 release Previous Rx's Medication Instructions Recorded ondansetron 4 mg disintegrating 4 mg PO Q6H PRN nausea and 07/20/23 tablet vomiting #12 tabs Results & Data (ED) Vital Signs Vital Signs - 24 hr 05/10/24 21:34 05/10/24 22:55 05/10/24 23:34 Temperature 36.3 C L Temperature Source Temporal Artery Scan Pulse Rate 91 H 88 Pulse Rate [Finger] 83 Respiratory Rate 18 18 Respiratory Effort / Characteristics Non-Labored Spontaneous Non-Labored Spontaneous Respiratory Depth Normal Normal Respiratory Pattern Regular Regular Blood Pressure 147/76 H Blood Pressure [Right Arm] 140/94 Blood Pressure Mean 99 Blood Pressure Mean [Right Arm] 109 Blood Pressure Position Sitting Pulse Oximetry 98 96 Oxygen Delivery Method Room Air Room Air Sepsis Recent Fever Within 48 Hours No Sepsis New/Unexplained Change in Mental Status N/A Sepsis Action Taken by Nursing No Action Required 05/11/24 00:00 05/11/24 00:36 05/11/24 01:03 Temperature Temperature Source Pulse Rate 75 67 82 Pulse Rate [Finger] Respiratory Rate 15 15 14 Respiratory Effort / Characteristics Respiratory Depth Respiratory Pattern Blood Pressure 129/77 126/80 127/75 Blood Pressure [Right Arm] Blood Pressure Mean 94 95 92 Blood Pressure Mean [Right Arm] Blood Pressure Position Pulse Oximetry 96 96 95 Oxygen Delivery Method Sepsis Recent Fever Within 48 Hours Sepsis New/Unexplained Change in Mental Status Sepsis Action Taken by Nursing Laboratory Data 05/10/24 21:40 05/10/24 21:40 Lab Results 05/10/24 05/10/24 Range/Units 21:40 22:10 WBC 11.26 H (4.8-10.8) K/ul RBC 4.59 (4.20-5.40) M/uL Hgb 14.4 (12.0-16.0) g/dl Hct 42.5 (37.0-47.0) % MCV 92.6 (80.0-100.0) fL MCH 31.4 (25.0-34.0) pg MCHC 33.9 (32.0-36.0) g/dL RDW Std Deviation 41.7 (36.4-46.3) fL RDW Coeff of Leopoldo 12.2 (11.5-14.5) % Plt Count 355 (130-400) K/uL MPV 8.4 L (9.4-12.4) fL Immature Gran % (Auto) 0.3 % Neut % (Auto) 95.1 % Lymph % (Auto) 3.1 % Anson % (Auto) 1.3 % Eos % (Auto) 0.0 % Baso % (Auto) 0.2 % Neut # (Auto) 10.71 H (1.40-6.50) K/uL Lymph # (Auto) 0.35 L (1.20-3.40) K/uL Anson # (Auto) 0.15 (0.11-0.59) K/uL Eos # (Auto) 0.00 (0.00-0.50) K/uL Baso # (Auto) 0.02 (0.00-0.20) K/uL Immature Gran # (Auto) 0.03 (0.01-0.20) K/uL RBC Morphology Unremarkable Sodium 136 (136-145) mmol/L Potassium 4.5 (3.5-5.1) mmol/L Chloride 102 (98-107) mmol/L Carbon Dioxide 26 (21-32) mmol/L Anion Gap 8 (3-11) BUN 10 (6-23) mg/dl Creatinine 0.72 (0.6-1.2) mg/dl Est Cr Clr Drug Dosing 100.7 ml/min eGFR 109.01 BUN/Creatinine Ratio 13.9 (10-20) Glucose 145 H (70-99(Fasting)) mg/dl Calcium 9.0 (8.6-10.3) mg/dl Total Bilirubin 0.4 (0.2-1.0) mg/dl AST 19 (13-39) U/L ALT 17 (7-52) U/L Alkaline Phosphatase 61 (34-104) U/L Total Protein 7.2 (6.0-8.3) gm/dl Albumin 4.7 (3.4-5.0) gm/dl Globulin 2.5 (2.5-4.0) gm/dl Albumin/Globulin Ratio 1.9 (0.9-2) Lipase 651 H (11-82) U/L Urine Color Yellow Urine Appearance Clear (Clear) Urine pH 7.0 (4.5-7.5) Ur Specific Tryon 1.009 (1.000-1.030) Urine Protein Negative (Negative) Urine Glucose (UA) Negative (Negative) Urine Ketones Negative (Negative) Urine Blood Negative (Negative) Urine Nitrite Negative (Negative) Urine Bilirubin Negative (Negative) Urine Urobilinogen Negative (Negative) Ur Leukocyte Esterase Negative (Negative) Administered Medications Discontinued Medications Sodium Chloride (Nss) 1,000 mls @ 999 mls/hr IV .Q1H1M ONE Stop: 05/11/24 00:03 Last Infusion: 05/11/24 01:09 Dose: Infused Documented By: Admin: 05/10/24 23:29 Dose: 999 mls/hr Documented By: RODRIGO Ioversol (Optiray 320 100ml) 92 ml IV ONCE ONE Stop: 05/10/24 23:18 Last Admin: 05/10/24 23:17 Dose: 92 ml Documented By: ATIF Morphine Sulfate (Morphine Sulfate 10 Mg/Ml Carp/Vial) 6 mg IV NOW STA Stop: 05/10/24 23:10 Last Admin: 05/10/24 23:29 Dose: 6 mg Documented By: RODRIGO Morphine Sulfate (Morphine Sulfate 10 Mg/Ml Carp/Vial) 6 mg IV NOW STA Stop: 05/11/24 00:47 Last Admin: 05/11/24 01:13 Dose: 6 mg Documented By: RODRIGO Ondansetron HCl (Ondansetron Inj 2 Mg/Ml 2 Ml Vial) 4 mg IV NOW STA Stop: 05/10/24 23:10 Last Admin: 05/10/24 23:29 Dose: 4 mg Documented By: RODRIGO Imaging Data Radiologist's Impression: Abdomen/Pelvis CT 05/10/24 23:03 Exam(s): CT ABDOMEN + PELVIS With Contrast IV Amt: 92 cc opti 320 EXAM: CT Abdomen and Pelvis With Intravenous Contrast CLINICAL HISTORY: Reason for exam: abd pain ? Pancreatitis. TECHNIQUE: Axial computed tomography images of the abdomen and pelvis with intravenous contrast. Automated exposure control was utilized for the study. A dose lowering technique was utilized adhering to the principles of ALARA. CONTRAST: Patient received 92 cc opti 320 of IV contrast COMPARISON: No relevant prior studies available. FINDINGS: Lung bases: No consolidation. ABDOMEN: Liver: No mass. Gallbladder and bile ducts: The gallbladder is not visualized. No ductal dilation. Pancreas: A pancreatic stent is noted. There are some slight inflammatory changes surrounding the pancreatic head.. Spleen: No splenomegaly. Adrenals: No mass. Kidneys and ureters: No solid mass. No hydronephrosis. Stomach and bowel: The stomach is distended containing fluid and air. There is air and stool noted in the colon.. PELVIS: Appendix: Unremarkable CT scan appearance noted the appendix.. Bladder: No calculi are noted within the bladder.. Reproductive: The patient appears to be status post hysterectomy.. ABDOMEN and PELVIS: Intraperitoneal space: No free air. There is some free fluid noted in the pelvis. Bones/joints: There are some degenerative changes in the spine.. Soft tissues: Unremarkable. Vasculature: No abdominal aortic aneurysm. Lymph nodes: No enlarged lymph nodes. IMPRESSION: A pancreatic stent is noted. There are some slight inflammatory changes surrounding the pancreatic head.. This may represent acute pancreatitis. The gallbladder is not visualized and may be surgically absent. There is some free fluid noted in the pelvis. Electronically signed by: Gage Castillo MD 05/11/24 01:25 AM Discharge Plan Visit Data Chief Complaint: Abdominal Pain Stated Complaint: STENT IN PANCREAS TODAY , ABD PAIN, ED Provider: Frank Pedraza Discharge Problem: Abdominal pain, Pancreatitis, Leukocytosis Forms Stand Alone Forms: [facility] Prescriptions Prescriptions: No Action duloxetine [Cymbalta] 60 mg Capsule,Delayed Release(Dr/Ec) 60 mg PO QAM trazodone 100 mg tablet 100 mg PO HS fluticasone propionate 50 mcg/actuation Foster,Suspension 2 spray INTRANASAL DAILY PRN (Reason: Allergy Symptoms) Rx Instructions: as needed loratadine [Claritin] 10 mg Tablet 10 mg PO QAM PRN (Reason: Allergic Symptoms) buspirone 15 mg tablet 15 mg PO AMHS Linzess 290 mcg capsule 290 mcg PO DAILYBB pantoprazole 40 mg tablet,delayed release (DR/EC) 40 mg PO QAM ondansetron 4 mg tablet,disintegrating 4 mg PO Q6H PRN (Reason: nausea and vomiting) Qty: 12 0RF Referrals Referrals: Williams Hauser MD [Primary Care Provider] - Discharge Problem: Abdominal pain Qualifiers: Abdominal location: unspecified location Qualified Code(s): R10.9 - Unspecified abdominal pain Pancreatitis Qualifiers: Chronicity: acute Pancreatitis type: unspecified pancreatitis type Acute pancreatitis complication: unspecified Qualified Code(s): K85.90 - Acute pancreatitis without necrosis or infection, unspecified Leukocytosis Qualifiers: Leukocytosis type: unspecified Qualified Code(s): D72.829 - Elevated white blood cell count, unspecified
[2024-05-10] MEDS: OPTIRAY 320 100ml IV ONE (23:17)
[2024-05-10] MEDS: MoRPHine SULFATE 10 MG/ML CARP/VIAL IV STA (23:29)
[2024-05-10] MEDS: ONDANSETRON INJ 2 MG/ML 2 ML VIAL IV STA (23:29)
[2024-05-10] MEDS: SODIUM CHLORIDE 0.9% 1,000 ML IV ONE (23:29)
[2024-05-11] MEDS: MoRPHine SULFATE 10 MG/ML CARP/VIAL IV STA (01:13)
--- NOTE | 2024-05-11 01:26 | CT Scan Report ---
Exam(s): CT ABDOMEN + PELVIS With Contrast IV Amt: 92 cc opti 320 EXAM: CT Abdomen and Pelvis With Intravenous Contrast CLINICAL HISTORY: Reason for exam: abd pain ? Pancreatitis. TECHNIQUE: Axial computed tomography images of the abdomen and pelvis with intravenous contrast. Automated exposure control was utilized for the study. A dose lowering technique was utilized adhering to the principles of ALARA. CONTRAST: Patient received 92 cc opti 320 of IV contrast COMPARISON: No relevant prior studies available. FINDINGS: Lung bases: No consolidation. ABDOMEN: Liver: No mass. Gallbladder and bile ducts: The gallbladder is not visualized. No ductal dilation. Pancreas: A pancreatic stent is noted. There are some slight inflammatory changes surrounding the pancreatic head.. Spleen: No splenomegaly. Adrenals: No mass. Kidneys and ureters: No solid mass. No hydronephrosis. Stomach and bowel: The stomach is distended containing fluid and air. There is air and stool noted in the colon.. PELVIS: Appendix: Unremarkable CT scan appearance noted the appendix.. Bladder: No calculi are noted within the bladder.. Reproductive: The patient appears to be status post hysterectomy.. ABDOMEN and PELVIS: Intraperitoneal space: No free air. There is some free fluid noted in the pelvis. Bones/joints: There are some degenerative changes in the spine.. Soft tissues: Unremarkable. Vasculature: No abdominal aortic aneurysm. Lymph nodes: No enlarged lymph nodes. IMPRESSION: A pancreatic stent is noted. There are some slight inflammatory changes surrounding the pancreatic head.. This may represent acute pancreatitis. The gallbladder is not visualized and may be surgically absent. There is some free fluid noted in the pelvis. Electronically signed by: Gage Castillo MD 05/11/24 01:25 AM
--- NOTE | 2024-05-11 04:49 | History & Physical Report ---
Date of Service May 11, 2024 Assessment & Plan (1) Pancreatitis: Plan: 38-year-old female with past medical history significant for irritable bowel syndrome with constipation, fatty liver, spondylolysis of lumbar and cervical region, major depression, general anxiety disorder, medical marijuana use, history of recurrent pancreatitis, possible pancreatic divisum status post ERCP with pancreatic stent today comes to the ER with severe abdominal pain and n ausea and found to have acute pancreatitis. Currently pain is under control. Nausea is improved. Had headache that is improved. Denies sore throat or cough. No fevers. Having chills. Vision is okay. Denies any chest pain. Currently no shortness of breath. Normal bowel and bladder movements. Hemodynamics are okay. Acute pancreatitis History of recurrent pancreatitis Possible pancreatic divisum Status post ERCP and pancreatic stent on 05/10/24 N.p.o. IV normal saline 200 mL/h IV Dilaudid as needed GI consult in a.m. for further recommendations History of irritable bowel syndrome with constipation On Linzess. Depression Generalized anxiety disorder On Cymbalta and trazodone GERD Protonix DVT prophylaxis Lovenox Disposition Medical floor Full code History of Present Illness Chief Complaint: Abdominal pain Primary Care Provider: Williams Hauser MD 38-year-old female with past medical history significant for irritable bowel syndrome with constipation, fatty liver, spondylolysis of lumbar and cervical region, major depression, general anxiety disorder, medical marijuana use, history of recurrent pancreatitis, possible pancreatic divisum status post ERCP with pancreatic stent today comes to the ER with severe abdominal pain and nausea and found to have acute pancreatitis. Currently pain is under control. Nausea is improved. Had headache that is improved. Denies sore throat or cough. No fevers. But having chills.Vision is okay. Denies any chest pain. Currently no shortness of breath. Normal bowel and bladder movements. Hemodynamics are okay. Past medical history. As mentioned above Past surgical history. Colonoscopy and EGD. EGD with endoscopic ultrasound. Endometrial ablation. Laparoscopy hysterectomy. Laparoscopic cholecystectomy. Ligation of oviducts. Family history.. Paternal grand father had alcoholism. Father from brain aneurysm. Mother had thyroid disorder. Social history. Quit smoking in 2014. Prior to that smoked 1 pack a day for 10 years. No alcohol use currently. Medical marijuana daily. Allergies Allergy/AdvReac Type Severity Reaction Status Date / Time clindamycin Allergy Intermediate muscle Verified 05/10/24 21:42 aches/metal taste in mouth Penicillins Allergy Unknown UNKNOWN, Verified 05/10/24 21:42 CHILD ALLERGY doxycycline AdvReac Mild Metallic Verified 05/10/24 21:42 Taste Home Medications Medication Instructions Recorded Confirmed Type duloxetine 60 mg capsule,delayed 60 mg PO QAM 03/01/19 05/11/24 History release (Cymbalta) fluticasone propionate 50 2 spray intranasal DAILY PRN 08/14/20 05/11/24 History mcg/actuation nasal Allergy Symptoms spray,suspension loratadine 10 mg tablet (Claritin) 10 mg PO QAM PRN Allergic Symptoms 08/14/20 05/11/24 History trazodone 100 mg tablet 100 mg PO HS 06/26/22 05/11/24 History ondansetron 4 mg disintegrating 4 mg PO Q6H PRN nausea and 07/20/23 05/11/24 Rx tablet vomiting #12 tabs buspirone 15 mg tablet 15 mg PO AMHS 05/11/24 05/11/24 History linaclotide 290 mcg capsule 290 mcg PO DAILYBB 05/11/24 05/11/24 History (Linzess) pantoprazole 40 mg tablet,delayed 40 mg PO QAM 05/11/24 05/11/24 History release Past Med/Surg History Problem List (Updated 05/11/24 @ 01:39 by Frank Pedraza DO) Leukocytosis (Acute) Pancreatitis (Acute) Abdominal pain (Acute) Enteritis (Acute) Pancreatitis (Acute) Epigastric abdominal pain (Acute) GERD (gastroesophageal reflux disease) Medical marijuana use Abdominal pain, acute (Acute) Acute pancreatitis (Acute) Pain at surgical site H/O umbilical hernia repair (02/20/21) Open Umbilical Hernia Repair- Al Lizama DO, FACS 02/20/2021 Obesity (BMI 30.0-34.9) Hx laparoscopic cholecystectomy 08/22/2020 Dr. Garvin Umbilical hernia Anemia Allergic rhinitis Endometriosis (Chronic) Chronic pelvic pain in female S/P laparoscopic hysterectomy S/P unilateral salpingo-oophorectomy Encounter for pre-operative examination Medical History History of stomach ulcers Depression Anxiety Surgical History History of colonoscopy History of hysterectomy with unilateral oophorectomy d/t endometriosis (right removed) History of bilateral tubal ligation History of dilatation and curettage History of esophagogastroduodenoscopy (EGD) History of tooth extraction Family History Mother Family history of reaction to anesthesia SLOW TO WAKE UP Diabetes Lung cancer Father Cerebral aneurysm Social History Smoking Status: Never smoker Second Hand Exposure: No; Do You Dip or Chew Tobacco: No; Hx Alcohol Use: No Hx Substance Use: No Preferred Language: Macanese Communication Ability: Effective Disc Recordist Required: No Beliefs That Will Affect Care: None marital status: Single Current Living Situation: Spouse Current Living Situation Comment: Lives with fiance and DAUGHTER current occupational status: unemployed and disabled current occupation: HAS NOT WORKED 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 How many Children do You have: 2 Other Information That Helps Us Care for You: No Feels Safe at Home: Yes Safety Concerns: Feels Safe At This Time during the past year weight has: decreased > 10 lbs Assistive Devices: Glasses Review of Systems Review of Systems: All systems reviewed & are unremarkable except as noted in HPI & below Physical Exam Physical Exam: General- not in distress. Head- atraumatic Eyes- PERRL. ENT- oropharynx clear Neck- supple, no JVD. Lungs- clear to auscultation no wheezing or crackles Heart- regular rate and rhythm; no murmur, no gallop. Abdomen- normal bowel sounds, soft, diffuse tender, no distension Extremities- no pretibial edema, no erythema seen Neuro- alert, oriented PERRL, EOMI; no facial palsy; no dysarthria; moves extremities Results & Data Results & Data Vital Signs (Past 12 Hours) Vital Signs Temp Pulse Pulse Resp BP BP Pulse Ox 05/11/24 03:50 67 05/11/24 02:15 74 19 114/71 92 05/11/24 01:30 68 25 H 133/74 95 05/11/24 01:03 82 14 127/75 95 05/11/24 00:36 67 15 126/80 96 05/11/24 00:00 75 15 129/77 96 02/11/25 23:34 88 05/10/24 22:55 83 18 140/94 96 05/10/24 21:34 36.3 C L 91 H 18 147/76 H 98 O2 Del Method 05/11/24 03:50 05/11/24 02:15 05/11/24 01:30 05/11/24 01:03 05/11/24 00:36 05/11/24 00:00 05/10/24 23:34 05/10/24 22:55 Room Air 05/10/24 21:34 Room Air Diagnostic Findings Laboratory Results WBC 11.26 K/ul (4.8-10.8) H 05/10/24 21:40 RBC 4.59 M/uL (4.20-5.40) 05/10/24 21:40 Hgb 14.4 g/dl (12.0-16.0) 05/10/24 21:40 Hct 42.5 % (37.0-47.0) 05/10/24 21:40 MCV 92.6 fL (80.0-100.0) 05/10/24 21:40 MCH 31.4 pg (25.0-34.0) 05/10/24 21:40 MCHC 33.9 g/dL (32.0-36.0) 05/10/24 21:40 RDW Std Deviation 41.7 fL (36.4-46.3) 05/10/24 21:40 RDW Coeff of Leopoldo 12.2 % (11.5-14.5) 05/10/24 21:40 Plt Count 355 K/uL (130-400) 05/10/24 21:40 MPV 8.4 fL (9.4-12.4) L 05/10/24 21:40 Immature Gran % (Auto) 0.3 % 05/10/24 21:40 Neut % (Auto) 95.1 % 05/10/24 21:40 Lymph % (Auto) 3.1 % 05/10/24 21:40 [facility] % (Auto) 1.3 % 05/10/24 21:40 Eos % (Auto) 0.0 % 05/10/24 21:40 Baso % (Auto) 0.2 % 05/10/24 21:40 Neut # (Auto) 10.71 K/uL (1.40-6.50) H 05/10/24 21:40 Lymph # (Auto) 0.35 K/uL (1.20-3.40) L 05/10/24 21:40 [facility] # (Auto) 0.15 K/uL (0.11-0.59) 05/10/24 21:40 Eos # (Auto) 0.00 K/uL (0.00-0.50) 05/10/24 21:40 Baso # (Auto) 0.02 K/uL (0.00-0.20) 05/10/24 21:40 Immature Gran # (Auto) 0.03 K/uL (0.01-0.20) 05/10/24 21:40 RBC Morphology Unremarkable 05/10/24 21:40 Sodium 136 mmol/L (136-145) 05/10/24 21:40 Potassium 4.5 mmol/L (3.5-5.1) 05/10/24 21:40 Chloride 102 mmol/L (98-107) 05/10/24 21:40 Carbon Dioxide 26 mmol/L (21-32) 05/10/24 21:40 Anion Gap 8 (3-11) 05/10/24 21:40 BUN 10 mg/dl (6-23) 05/10/24 21:40 Creatinine 0.72 mg/dl (0.6-1.2) 05/10/24 21:40 Est Cr Clr Drug Dosing 100.7 ml/min 05/10/24 21:40 eGFR 109.01 05/10/24 21:40 BUN/Creatinine Ratio 13.9 (10-20) 05/10/24 21:40 Glucose 145 mg/dl (70-99(Fasting)) H 05/10/24 21:40 Calcium 9.0 mg/dl (8.6-10.3) 05/10/24 21:40 Total Bilirubin 0.4 mg/dl (0.2-1.0) 05/10/24 21:40 AST 19 U/L (13-39) 05/10/24 21:40 ALT 17 U/L (7-52) 05/10/24 21:40 Alkaline Phosphatase 61 U/L (34-104) 05/10/24 21:40 Total Protein 7.2 gm/dl (6.0-8.3) 05/10/24 21:40 Albumin 4.7 gm/dl (3.4-5.0) 05/10/24 21:40 Globulin 2.5 gm/dl (2.5-4.0) 05/10/24 21:40 Albumin/Globulin Ratio 1.9 (0.9-2) 05/10/24 21:40 Lipase 651 U/L (11-82) H 05/10/24 21:40 Urine Color Yellow 05/10/24 22:10 Urine Appearance Clear (Clear) 05/10/24 22:10 Urine pH 7.0 (4.5-7.5) 05/10/24 22:10 Ur Specific Romeo 1.009 (1.000-1.030) 05/10/24 22:10 Urine Protein Negative (Negative) 05/10/24 22:10 Urine Glucose (UA) Negative (Negative) 05/10/24 22:10 Urine Ketones Negative (Negative) 05/10/24 22:10 Urine Blood Negative (Negative) 05/10/24 22:10 Urine Nitrite Negative (Negative) 05/10/24 22:10 Urine Bilirubin Negative (Negative) 05/10/24 22:10 Urine Urobilinogen Negative (Negative) 05/10/24 22:10 Ur Leukocyte Esterase Negative (Negative) 05/10/24 22:10 Impressions Abdomen/Pelvis CT 05/10/24 23:03 Exam(s): CT ABDOMEN + PELVIS With Contrast IV Amt: 92 cc opti 320 EXAM: CT Abdomen and Pelvis With Intravenous Contrast CLINICAL HISTORY: Reason for exam: abd pain ? Pancreatitis. TECHNIQUE: Axial computed tomography images of the abdomen and pelvis with intravenous contrast. Automated exposure control was utilized for the study. A dose lowering technique was utilized adhering to the principles of ALARA. CONTRAST: Patient received 92 cc opti 320 of IV contrast COMPARISON: No relevant prior studies available. FINDINGS: Lung bases: No consolidation. ABDOMEN: Liver: No mass. Gallbladder and bile ducts: The gallbladder is not visualized. No ductal dilation. Pancreas: A pancreatic stent is noted. There are some slight inflammatory changes surrounding the pancreatic head.. Spleen: No splenomegaly. Adrenals: No mass. Kidneys and ureters: No solid mass. No hydronephrosis. Stomach and bowel: The stomach is distended containing fluid and air. There is air and stool noted in the colon.. PELVIS: Appendix: Unremarkable CT scan appearance noted the appendix.. Bladder: No calculi are noted within the bladder.. Reproductive: The patient appears to be status post hysterectomy.. ABDOMEN and PELVIS: Intraperitoneal space: No free air. There is some free fluid noted in the pelvis. Bones/joints: There are some degenerative changes in the spine.. Soft tissues: Unremarkable. Vasculature: No abdominal aortic aneurysm. Lymph nodes: No enlarged lymph nodes. IMPRESSION: A pancreatic stent is noted. There are some slight inflammatory changes surrounding the pancreatic head.. This may represent acute pancreatitis. The gallbladder is not visualized and may be surgically absent. There is some free fluid noted in the pelvis. Electronically signed by: Gage Castillo MD 05/11/24 01:25 AM Code Status & VTE Plan VTE Prophylaxis Plan VTE Prophylaxis will be ordered: Yes (1) Pancreatitis Acute pancreatitis complication: unspecified Chronicity: acute Pancreatitis type: unspecified pancreatitis type Qualified Code(s): K85.90 - Acute pancreatitis without necrosis or infection, unspecified
[2024-05-11] MEDS ORDERED: FLUTICASONE PROPIONATE NA SPR 16 GM BTL PRN (05:33)
[2024-05-11] MEDS ORDERED: LORATADINE 10 MG TAB PO PRN (05:33)
[2024-05-11] MEDS: SODIUM CHLORIDE 0.9% 1,000 ML IV SCH (05:59)
[2024-05-11] MEDS: HYDROmorphone INJ 0.5 MG/0.5 ML SYR IV PRN (05:59)
--- OUTSIDE RECORDS SUMMARY | 2024-05-11 06:39 | External Medical Summary | Summary of Care ---
Author Name Unknown Organization [facility] Address [address] [address] Phone [phone] Care Team Providers Care Applications Specialist Name Role Phone Murtaza BENTON MD, Williams Payton Primary Care Provider Encounter Details Date Type Department Care Team (Late st Contact Info) Description 04/15/2024 Telephone Gastroenterology, [facility] [address] [place] [address] Myranda Mckeon CRNP [address] [place] [address] Allergies Active Allergy Reactions Criticality Noted Date Comments Clindamycin Other (Please comment) 12/21/2014 Burned taste Muscle pain Doxycycline Low 08/22/2020 Other reaction(s): Metallic Taste Penicillins Unknown 10/07/2007 As a child Other reaction(s): UNKNOWN, CHILD ALLERGY documented as of this encounter (statuses as of 04/18/2024) Medications NATURAL SUPPLEMENT Take by mouth daily. Medical marijuana Active Loratadine 10 MG Oral Tablet Take 1 Tablet by mouth in the morning. Active Fluticasone Propionate 50 MCG/ACT Nasal Suspension Administer 1 [place] into nostril in the morning. Active Ondansetron HCl 4 MG Oral Tablet (Zofran)Indication s:Nausea and vomiting, intractability of vomiting not specified, unspecified vomiting type Take 1 Tablet by mouth every 6 hours as needed for Nausea. 30 Tablet 03/14/20 21 Active busPIRone HCl 15 MG Oral Tablet (Buspar) TAKE 1 TABLET BY MOUTH EVERY MORNING AND 1 TAB AT BEDTIME 180 Tablet 2 07/16/19 24 Active Cyclobenzaprine HCl 5 MG Oral Tablet (Flexeril)Indicati ons:Left thigh pain,Muscular pain Take 1 Tablet by mouth 2 times a day as needed for Muscle spasms. 20 Tablet 11/25/19 24 Active Additional Information Patient not taking.Reported on 04/01/2024 DULoxetine HCl 60 MG Oral Capsule Delayed Release Particles (Cymbalta) TAKE 1 CAPSULE BY MOUTH EVERY DAY DO NOT CRUSH OR CHEW 90 Capsule 3 01/07/20 24 Active traZODone HCl 100 MG Oral Tablet (Desyrel) TAKE 1 TABLET BY MOUTH EVERYDAY AT BEDTIME 90 Tablet 3 04/07/19 25 Active Pantoprazole Sodium 40 MG Oral Tablet Delayed Release (Protonix) Take 1 Tablet by mouth in the morning. 30 Tablet 5 04/14/19 25 Active Linzess 290 MCG Oral Capsule (linaCLOtide) Take 1 Capsule by mouth daily before breakfast. 30 Capsule 3 04/15/19 25 Active Linzess 290 MCG Oral Capsule (linaCLOtide) Take 1 Capsule by mouth daily before breakfast. 30 Capsule 3 01/06/20 24 025 Discontin ued(Refil l) documented as of this encounter (statuses as of 04/18/2024) Active Problems Problem Noted Date Diagnosed Date History of acute pancreatitis 04/14/2024 Pancreatic divisum 04/14/2024 Irritable bowel syndrome with constipation 04/14 Fatty (change of) liver, not elsewhere classifie d 04/01/2024 Spondylosis without myelopat hy or radiculopathy, sacral and sacrococcygeal region 04/01/2024 Major depressive disorder with single episode Medical marijuana use 11/13/2022 Depression, major, recurrent, moderate Spondylosis without myelopat hy or radiculopathy, cervical region 07/01/2022 Other spondylosis with radiculopathy, cervical r egion 07/24/2021 Other spondylosis with radiculopathy, lumbar reg ion 01/15/2021 Major depressive disorder, recurrent, mild 09/03 DWAIN (generalized anxiety disorder) 09/03/2018 Other allergic rhinitis 07/30/1999 Overview (01/20/2017): ICD-10 update of inactive term documented as of this encounter (statuses as of 04/18/2024) Resolved Problems Problem Noted Date Diagnosed Date Resolved Date RLS (restless legs syndrome) 07/01/2022 07/03/2023 Fatty liver 10/31/2021 07/03/2023 Morbid (severe) obesity due to excess calories 05/02/2019 05/02/2019 Depression with anxiety 05/28/2016 060 09/2018 Anemia 09/04/2009 10/04/2021 Encounter for supervision of other normal 05/15/2005 06/03/2005 Overview (07/31/2015): ICD-10 update of inactive term ADVANCE DIRECTIVE INFORMATION 04/14/2005 10/04/2021 Overview (04/14/2005): No, Advance Directive brochure given to patient. Tobacco use disorder 04/14/2005 016 Normal , first 11/24/200010/2001 Major depressive disorder 07/30/1999 Overview (01/20/2017): ICD-10 update of inactive term documented as of this encounter (statuses as of 04/18/2024) Immunizations Name Administration Dates Next Due HPV [...] Date Recorded PHQ Adult Total Score 0 04/01/2024 Hunger Vital Sign Answer Date Recorded Within [...] ages 0-17 years) Not on file 11/04/2023 Comments No Sex and Gender Information Value Date Recorded Sex Assigned at Female 08/12/2018 11:00 AM EDT Legal Sex Female 5:51 AM EST Gender Identity Female 08/12/2018 11:00 AM EDT Sexual Orientation Straight 08/12/2018 11 :00 AM EDT documented as of this encounter Miscellaneous Notes * Telephone Encounter - Myranda Mckeon CRNP - 04/15/2024 8:03 AM EST Lipase levels normal-- this is a very reassuring finding. Your x-ray is showing moderate constipation. Recommending 1/2 clean out. Restart Linzess daily. Patient currently only taking as needed. documented in this encounter Plan of Treatment Upcoming Encounters Date Type Department Care Team (Latest Contact Info) Description 05/10/2024 11:15 AM EST Hospital Encounter ENDO [facility], Endoscopy Room [facility] [address] [place] [address] [phone] Ellie Garcia MD [address] [place] [address] 05/10/2024 11:15 AM EST - 05/10/2024 12:15 PM EST Surgery ENDO [facility], Endoscopy Room [facility] [address] [place] [address] [phone] Ellie Garcia MD [address] [place] [address] ENDOSCOPIC RETROGRADE CHOLANGIOPANCREATOGRAPHY (ERCP) DIAGNOSTIC 05/24/2024 11:00 AM EST Office Visit Gastroenterology , [facility] [address] [address] Myranda Mckeon CRNP [address] [address] 11/04/2024 8:40 AM EDT Office Visit [facility] [address] [place] [address] Williams Hauser III, MD [address] [place] [address] [address] Scheduled Procedures Name Priority Associated Diagnoses Date/Ti me ENDOSCOPIC RETROGRADE CHOLANGIOPANCREATOGRAPHY (ERCP) DIAGNOSTIC History of acute pancreatitis Irritable bowel syndrome with constipation 05/10/2024 11:15 AM EST ESOPHAGOGASTRODUODENOSCOPY ( EGD), FLEXIBLE, TRANSORAL, ENDOSCOPIC ULTRASOUND History of acute pancreatitis Irritable bowel syndrome with constipation 05/10/2024 11:15 AM EST Health Maintenance Due Date Last Done Comments COVID-19 Vaccine ( season) 2023 Influenza Vaccine (FLU shot) (#1) 2023 01/26/2019 Depression Monitoring 04/01/2025 04/01/2024 Diabetes Screening 04/01/2027 04/01/2024, 0 11/06/2023, 10/27/2022, Additional history exists DTap/Tdap Vaccines (8 - Td or Tdap) 11/01/2031 10/31/2021, 09/04/2009, 03/19/1999, Additional history exists Pneumococcal Vaccine: Pediatrics (0 to 5 Years) and At-Risk Patients (6 to 18 Years and 19+ Years) Aged Out 09/04/2009 No longer eligib le based on patient's age to complete this topic MENINGOCOCCAL (MENACTRA/MENVEO) Aged Out No longer eligible based on patient's age to complete this topic documented as of this encounter Medical Devices Implanted Type Area Resident Services Supervisor Device Identifier Shelf Expiration Date Model / Serial / Lot Cartridge Esophyx Z+ - [id number] Implanted:Qty: 1 on 04/28/2019 by Ellie Garcia MD at [facility] [employer] 11/03/2020 [id number] / / [id number] Description:fasteners 10@11, 10@1, 4@5, 4@7 placed at [facility] (code [id number]) documented as of this encounter Care Teams Applications Specialist Relationship Specialty Start Date End Date Williams Hauser III, MD [address] [place] [address] PCP - General Family Medicine 10/27/22 documented as of this encounter
--- OUTSIDE RECORDS SUMMARY | 2024-05-11 06:39 | External Medical Summary | Summary of Care ---
Author Name Unknown Organization [facility] Address [address] [place] [address] Phone [phone] Care Team Providers Care Field Sampling Technician Name Role Phone Murtaza BENTON MD, Williams Payton Primary Care Provider [phone] Encounter Details Date Type Department Care Team (Late st Contact Info) Description 04/18/2024 Population Health External Data Unspecified Department Allergies Active Allergy Reactions Criticality Noted Date [...] Propionate 50 MCG/ACT Nasal Suspension Administer 1 [place] into nostril in the morning. Active Ondansetron [...] breakfast. 30 Capsule 3 04/15/19 25 Active documented as of this encounter (statuses as [...] AM EDT documented as of this encounter Plan of Treatment Upcoming Encounters Date Type Department Care Team (Latest Contact Info) Description 05/10/2024 11:15 AM EST Hospital Encounter ENDO [facility], Endoscopy Room [facility] [address] [place], [place] [phone] Ellie Garcia MD [address] [place] [address] 05/10/2024 11:15 AM EST - 05/10/2024 12:15 PM EST Surgery ENDO [facility], Endoscopy Room [facility] [address] [place] [phone] Ellie Garcia MD [address] [place] [address] ENDOSCOPIC RETROGRADE CHOLANGIOPANCREATOGRAPHY (ERCP) DIAGNOSTIC 05/24/2024 11:00 AM EST Office Visit Gastroenterology , [facility] [address] [place] [address] Myranda Mckeon CRNP [address] [place] [address] 11/04/2024 8:40 AM EDT Office Visit Family Practice [facility] [address] [facility] [place] [address] Williams Hauser III, MD [address] [facility], [place] [address] Scheduled Procedures Name Priority Associated Diagnoses Date/Ti nh ENDOSCOPIC RETROGRADE CHOLANGIOPANCREATOGRAPHY (ERCP) DIAGNOSTIC History of [...] this encounter Medical Devices Implanted Type Area Physiology Teacher Device Identifier Shelf Expiration Date Model / Serial / Lot Cartridge Esophyx Z+ - [id number] Implanted:Qty: 1 on 04/28/2019 by Ellie Garcia MD at OR [facility] [employer] 11/03/2020 [id number] / / [id number] Description:fasteners 10@11, 10@1, 4@5, 4@7 placed at [facility] [place] (code [id number]) documented as of this encounter Care Teams Field Sampling Technician Relationship Specialty Start Date End Date Williams Hauser III, MD [address] [place] [address] PCP - General Family Medicine 10/27/22 documented as of this encounter
--- OUTSIDE RECORDS SUMMARY | 2024-05-11 06:39 | External Medical Summary | Summary of Care ---
Author Name Unknown Organization [facility] Address [address] [place] [address] Phone [phone] Care Team Providers Care Albacore Fishing Boat Crewman Name Role Phone Murtaza BENTON MD, Williams Payton Primary Care Provider Reason for Visit * Reason Comments Outpatient Testing Encounter Details Date Type Department Care Team (Late st Contact Info) Description 04/20/2024 1:30 PM EST Laboratory Laboratory, [facility] [address] [facility] [address] [place], Specimen Drop Off [facility] [address] [facility] [address] History of acute pancreatitis; Irritable bowel syndrome with constipation Allergies Active Allergy Reactions Criticality Noted Date Comments Clindamycin Other (Please comment) 12/21/2014 Burned taste Muscle pain Doxycycline Low 08/22/2020 Other reaction(s): Metallic Taste Penicillins Unknown 10/07/2007 As a child Other reaction(s): UNKNOWN, CHILD ALLERGY documented as of this encounter (statuses as of 04/20/2024) Medications NATURAL SUPPLEMENT Take by mouth daily. Medical marijuana Active Loratadine 10 MG Oral Tablet Take 1 Tablet by mouth in the morning. Active Fluticasone Propionate 50 MCG/ACT Nasal Suspension Administer 1 [place] into nostril in the morning. Active Ondansetron [...] as of this encounter (statuses as of 04/20/2024) Active Problems Problem Noted Date Diagnosed Date [...] as of this encounter (statuses as of 04/20/2024) Resolved Problems Problem Noted Date Diagnosed Date Resolved Date RLS (restless legs syndrome) 07/01/2022 07/03/2023 Fatty liver 10/31/2021 07/03/2023 Morbid (severe) obesity due to excess calories 05/02/2019 05/02/2019 Depression with anxiety 05/28/2016 0609/2018 Anemia 09/04/2009 10/04/2021 Encounter for supervision of other normal 05/15/2005 06/03/2005 Overview (07/31/2015): ICD-10 update of inactive term ADVANCE DIRECTIVE INFORMATION 04/14/2005 10/04/2021 Overview (04/14/2005): No, Advance Directive brochure given to patient. Tobacco use disorder 04/14/2005 016 Normal , first 11/24/200010/2001 Major depressive disorder 07/30/1999 Overview (01/20/2017): ICD-10 update of inactive term documented as of this encounter (statuses as of 04/20/2024) Immunizations Name Administration Dates Next Due HPV [...] 05/10/2024 11:15 AM EST Hospital Encounter ENDO OSS, Endoscopy Room [facility] [address] [place] [phone] Ellie Garcia MD [address] [place] [address] 05/10/2024 11:15 AM EST - 05/10/2024 12:15 PM EST Surgery ENDO OSSC, Endoscopy Room [facility] [address] [place] [phone] Ellie Garcia MD [address] [place] [address] ENDOSCOPIC RETROGRADE CHOLANGIOPANCREATOGRAPHY (ERCP) DIAGNOSTIC 05/24/2024 11:00 AM EST Office Visit Gastroenterology , [facility] [address] [place] [address] Myranda Mckeon CRNP [address] [place] [address] 11/04/2024 8:40 AM EDT Office Visit Family Practice [facility] [address] [place] [address] Williams Hauser III, MD [address] [place] [address] Pending Results Name Type Priority Associated Diagnoses Date /Time PANCREATIC ELASTASE-1 Lab Routine History of acute pancreatitis Irritable bowel syndrome with constipation 04/20/2024 1:34 PM EST Scheduled Procedures Name Priority Associated Diagnoses Date/Ti ky ENDOSCOPIC RETROGRADE CHOLANGIOPANCREATOGRAPHY (ERCP) DIAGNOSTIC History of [...] this encounter Medical Devices Implanted Type Area Senior Electrical Design Engineer Device Identifier Shelf Expiration Date Model / Serial / Lot Cartridge Esophyx Z+ - [id number] Implanted:Qty: 1 on 04/28/2019 by Ellie Garcia MD at OR [facility] [employer] 11/03/2020 [id number] / / [id number] Description:fasteners 10@11, 10@1, 4@5, 4@7 placed at GE junction (code 0278) documented as of this encounter Visit Diagnoses Diagnosis History of acute pancreatitis Personal history of other diseases of digestive system Irritable bowel syndrome with constipation Irritable bowel syndrome History of acute pancreatitis Personal history of other diseases of digestive system Irritable bowel syndrome with constipation Irritable bowel syndrome documented in this encounter Care Teams Albacore Fishing Boat Crewman Relationship Specialty Start Date End Date Williams Hauser III, MD [address] [place] [address] PCP - General Family Medicine 10/27/22 documented as of this encounter
--- OUTSIDE RECORDS SUMMARY | 2024-05-11 06:39 | External Medical Summary ---
Author Name Unknown Address Unknown Organization : Laboratory Report Ordering Provider Test Date Status KATHERINE PELAYO 04/20/2024 13:34:49 Final Observation Date Value Abnormality Reference (Units ) Status PANCREATIC ELASTASE-1 04/20/2024 13:34:49 678 >200 (mcg/g) Final E-1 mcg/g feces Interpretati on
<100 Severe exocrine pancreatic
insufficiency
100-200 Mild to moderate exocrine
pancreatic insufficiency
>200 Normal
Test performed by [facility]
[address],
[place] [address]

Removable Prosthodontist: Bree Gregorio MD,PHD,STEFANI
Test Reported by Alex Farah,
[facility],
[address] [place], [place]
Kem Feliz M.D., Ph.D., Director of Laboratories
, [place] [id number] Performing Location
--- OUTSIDE RECORDS SUMMARY | 2024-05-11 06:39 | External Medical Summary | Summary of Care ---
Author Name Unknown Organization [facility] Address [address] [place] [address] Phone [phone] Care Team Providers Care Health Diagnostics Teacher Name Role Phone Murtaza BENTON MD, Herman Payton Primary Care Provider [phone] Reason for Visit * Reason Comments eRx-Medication Refill Encounter Details Date Type Department Care Team (Late st Contact Info) Description 04/22/2024 Refill Family Practice [facility] [address] [place] [address] Herman Martínez III, MD [address] [facility] [address] Allergies Active Allergy Reactions Criticality Noted Date Comments Clindamycin Other (Please comment) 12/21/2014 Burned taste Muscle pain Doxycycline Low 08/22/2020 Other reaction(s): Metallic Taste Penicillins Unknown 10/07/2007 As a child Other reaction(s): UNKNOWN, CHILD ALLERGY documented as of this encounter (statuses as of 04/22/2024) Medications NATURAL SUPPLEMENT Take by mouth daily. Medical marijuana Active Loratadine 10 MG Oral Tablet Take 1 Tablet by mouth in the morning. Active Fluticasone Propionate 50 MCG/ACT Nasal Suspension Administer 1 [place] into nostril in the morning. Active Ondansetron HCl 4 MG Oral Tablet (Zofran)Indicatio ns:Nausea and vomiting, intractability of vomiting not specified, unspecified vomiting type Take 1 Tablet by mouth every 6 hours as needed for Nausea. 30 Tablet 021 Active Cyclobenzaprine HCl 5 MG Oral Tablet (Flexeril)Indicat ions:Left thigh pain,Muscular pain Take 1 Tablet by mouth 2 times a day as needed for Muscle spasms. 20 Tablet Active Additional Information Patient not taking.Reported on 04/01/2024 DULoxetine HCl 60 MG Oral Capsule Delayed Release Particles (Cymbalta) TAKE 1 CAPSULE BY MOUTH EVERY DAY DO NOT CRUSH OR CHEW 90 Capsule 3 024 Active traZODone HCl 100 MG Oral Tablet (Desyrel) TAKE 1 TABLET BY MOUTH EVERYDAY AT BEDTIME 90 Tablet 3 025 Active Pantoprazole Sodium 40 MG Oral Tablet Delayed Release (Protonix) Take 1 Tablet by mouth in the morning. 30 Tablet 5 025 Active Linzess 290 MCG Oral Capsule (linaCLOtide) Take 1 Capsule by mouth daily before breakfast. 30 Capsule 3 025 Active busPIRone HCl 15 MG Oral Tablet (Buspar) TAKE 1 TABLET BY MOUTH EVERY MORNING AND 1 TAB AT BEDTIME 180 Tablet 2 025 Active busPIRone HCl 15 MG Oral Tablet (Buspar) TAKE 1 TABLET BY MOUTH EVERY MORNING AND 1 TAB AT BEDTIME 180 Tablet 2 024 2024 Discontinued documented as of this encounter (statuses as of 04/22/2024) Active Problems Problem Noted Date Diagnosed Date [...] as of this encounter (statuses as of 04/22/2024) Resolved Problems Problem Noted Date Diagnosed Date [...] as of this encounter (statuses as of 04/22/2024) Immunizations Name Administration Dates Next Due HPV [...] encounter Miscellaneous Notes * Telephone Encounter - Herman Martínez III, MD - 04/22/2024 12:56 PM ESTSigned Prescriptions: Disp Refills busPIRone HCl 15 MG Oral Tablet (Buspar) 180 Ta*2 Sig: TAKE 1 TABLET BY MOUTH EVERY MORNING AND 1 TAB AT BEDTIMEAuthorizing Provider: HERMAN MARTÍNEZ III * Telephone Encounter - Madhavi Fajardo [facility] - 04/22/2024 9:37 AM EST Pending Prescriptions: Disp Refills busPIRone HCl 15 MG Oral Tablet [Pharmacy *180 Ta*2 Sig: TAKE 1 TABLET BY MOUTH EVERY MORNING AND 1 TAB AT BEDTIME * Telephone Encounter - Madhavi Fajardo [facility] - 04/22/2024 9:37 AM EST Pending Prescriptions: Disp Refills busPIRone HCl 15 MG Oral Tablet [Pharmacy *180 Ta*2 Sig: TAKE 1 TABLET BY MOUTH EVERY MORNING AND 1 TAB AT BEDTIME 04/01/2024 (in office), Visit date not found (telemedicine) 11/04/2024 If no future appointments scheduled, and last appointment is greater than a year ago, please schedule patient for a follow-up appointment Last date the medication was ordered: 07/16/23 Pharmacy: [id number] [address] [facility] Is this request for a controlled substance?No Urine Drug Screen:No results found for this or any previous visit. Patient Phone Numbers Labs: Lab Results Component Value Date/Time CREAT 0.9 04/01/2024 11:19 AM CREAT 1.0 12/06/2019 10:14 AM POTASSIUM 4.7 04/01/2024 11:19 AM POTASSIUM 4.2 12/06/2019 10:14 AM TSH 2.70 10/27/2022 09:42 AM TSH 2.74 04/24/2017 12:40 PM LDL 127 04/12/2024 10:54 AM ALT 22 04/12/2024 10:54 AM ALT 10 12/06/2019 10:14 AM documented in this encounter Plan of Treatment Upcoming Encounters Date Type Department Care Team (Latest Contact Info) Description 05/10/2024 11:15 AM EST Hospital Encounter ENDO OSSC, Endoscopy Room [facility] [address] [place] [phone] Ellie Garcia MD [address] [place] [address] 05/10/2024 11:15 AM EST - 05/10/2024 12:15 PM EST Surgery ENDO OSSC, Endoscopy Room [facility] [address] [place] [phone] Ellie Garcia MD [address] [place] [address] ENDOSCOPIC RETROGRADE CHOLANGIOPANCREATOGRAPHY (ERCP) DIAGNOSTIC 05/24/2024 11:00 AM EST Office Visit Gastroenterology , [facility] [address] [place] [address] Myranda Mckeon CRNP [address] [place] [address] 11/04/2024 8:40 AM EDT Office Visit [facility] [place] [address] [facility] [place] [address] Herman Martínez III, MD [address] [facility] [place] [address] Scheduled Procedures Name Priority Associated Diagnoses Date/Ti pa ENDOSCOPIC RETROGRADE CHOLANGIOPANCREATOGRAPHY (ERCP) DIAGNOSTIC History of [...] this encounter Medical Devices Implanted Type Area Softball Umpire Device Identifier Shelf Expiration Date Model / Serial / Lot Cartridge Esophyx Z+ - [id number] Implanted:Qty: 1 on 04/28/2019 by Ellie Garcia MD at OR [facility] [employer] 11/03/2020 [id number] / / [id number] Description:fasteners 10@11, 10@1, 4@5, 4@7 placed at GE junction (code 0278) documented as of this encounter Care Teams Health Diagnostics Teacher Relationship Specialty Start Date End Date Hreman Martínez III, MD [address] [facility], [place] [id number] PCP - General Family Medicine 10/27/22 documented as of this encounter
--- OUTSIDE RECORDS SUMMARY | 2024-05-11 06:39 | External Medical Summary | Summary of Care ---
Author Name Unknown Organization [facility] Address [address] [place] [facility] [place] [facility] [place] [address] Phone [phone] Care Team Providers Care Hoop Riveting Machine Operator Name Role Phone Murtaza BENTON MD, Williams Payton Primary Care Provider [phone] Reason for Visit * Reason Comments Outpatient Testing Encounter Details Date Type Department Care Team (Late st Contact Info) Description 04/14/2024 3:10 PM EST Laboratory [facility], [facility] [phone] [facility] [address] [place] [address] History of acute pancreatitis; Irritable bowel syndrome with constipation Allergies Active Allergy Reactions Criticality Noted Date Comments Clindamycin Other (Please comment) 12/21/2014 Burned taste Muscle pain Doxycycline Low 08/22/2020 Other reaction(s): Metallic Taste Penicillins Unknown 10/07/2007 As a child Other reaction(s): UNKNOWN, CHILD ALLERGY documented as of this encounter (statuses as of 04/14/2024) Medications NATURAL SUPPLEMENT Take by mouth daily. Medical marijuana Active Loratadine 10 MG Oral Tablet Take 1 Tablet by mouth in the morning. Active Fluticasone Propionate 50 MCG/ACT Nasal Suspension Administer 1 [place] into nostril in the morning. Active Ondansetron [...] CHEW 90 Capsule 3 01/07/20 24 Active Linzess 290 MCG Oral Capsule (linaCLOtide) Take 1 Capsule by mouth daily before breakfast. 30 Capsule 3 01/06/20 24 Active Additional Information Patient not taking.Reported on 04/01/2024 traZODone HCl 100 MG Oral Tablet (Desyrel) TAKE 1 TABLET BY MOUTH EVERYDAY AT BEDTIME 90 Tablet 3 04/07/19 25 Active Pantoprazole Sodium 40 MG Oral Tablet Delayed Release (Protonix) Take 1 Tablet by mouth in the morning. 30 Tablet 5 04/14/19 25 Active documented as of this encounter (statuses as of 04/14/2024) Active Problems Problem Noted Date Diagnosed Date [...] as of this encounter (statuses as of 04/14/2024) Resolved Problems Problem Noted Date Diagnosed Date [...] as of this encounter (statuses as of 04/14/2024) Immunizations Name Administration Dates Next Due HPV [...] EST Hospital Encounter ENDO OSSC, Endoscopy Room [facility] [address] [place] [phone] Ellie Garcia MD [address] [place] [address] 05/10/2024 11:15 AM EST - 05/10/2024 12:15 PM EST Surgery ENDO OSSC, Endoscopy Room [facility] [address] [place] [address] Ellie Garcia MD [address] [place] [address] ENDOSCOPIC RETROGRADE CHOLANGIOPANCREATOGRAPHY (ERCP) DIAGNOSTIC 05/24/2024 11:00 AM EST Office Visit Gastroenterology , [facility] [address] [place] [address] Myranda Mckeon CRNP [address] [place] [address] 11/04/2024 8:40 AM EDT Office Visit Family Practice [facility] [place] [address] [facility] [place] [address] Williams Hauser III, MD [address] [facility] [place] [address] Pending Results Name Type Priority Associated Diagnoses Date /Time LIPASE Lab Routine History of acute pancreatitis Irritable bowel syndrome with constipation 04/14/2024 2:56 PM EST VITAMIN B12 Lab Routine History of acute pancreatitis Irritable bowel syndrome with constipation 04/14/2024 2:56 PM EST MAGNESIUM Lab Routine History of acute pancreatitis Irritable bowel syndrome with constipation 04/14/2024 2:56 PM EST Scheduled Procedures Name Priority Associated [...] this encounter Medical Devices Implanted Type Area Pest Management Supervisor Device Identifier Shelf Expiration Date Model / Serial / Lot Cartridge Esophyx Z+ - [id number] Implanted:Qty: 1 on 04/28/2019 by Ellie Garcia MD at OR [facility] [employer] 11/03/2020 [id number] / / [id number] Description:fasteners 10@11, 10@1, 4@5, 4@7 placed at [...] syndrome documented in this encounter Care Teams Hoop Riveting Machine Operator Relationship Specialty Start Date End Date Williams Hauser III, MD [address] [place] [address] PCP - General Family Medicine 10/27/22 documented as of this encounter
--- OUTSIDE RECORDS SUMMARY | 2024-05-11 06:39 | External Medical Summary | Summary of Care ---
Author Name Unknown Organization [facility] Address [address] [place] [place] [address] Phone [phone] Care Team Providers Care Director Of Market Intelligence Name Role Phone Murtaza BENTON MD, Williams Payton Primary Care Provider [phone] Encounter Details Date Type Department Care Team (Late st Contact Info) Description 05/10/2024 Telephone Gastroenterology, [facility] [address] [place] [address] lElie Garcia MD [address] [place] [address] Allergies Active Allergy Reactions Criticality Noted Date Comments Clindamycin Other (Please comment) 12/21/2014 Burned taste Muscle pain Doxycycline Low 08/22/2020 Other reaction(s): Metallic Taste Penicillins Unknown 10/07/2007 As a child Other reaction(s): UNKNOWN, CHILD ALLERGY documented as of this encounter (statuses as of 05/10/2024) Medications NATURAL SUPPLEMENT Take by mouth daily. Medical marijuana Active Loratadine 10 MG Oral Tablet Take 1 Tablet by mouth in the morning. Active Fluticasone Propionate 50 MCG/ACT Nasal Suspension Administer 1 [place] into nostril in the morning. Active Ondansetron HCl 4 MG Oral Tablet (Zofran)Indication s:Nausea and vomiting, intractability of vomiting not specified, unspecified vomiting type Take 1 Tablet by mouth every 6 hours as needed for Nausea. 30 Tablet 12/16/202 1 Active Cyclobenzaprine HCl 5 MG Oral Tablet (Flexeril)Indicati ons:Left thigh pain,Muscular pain Take 1 Tablet by mouth 2 times a day as needed for Muscle spasms. 20 Tablet 4 Active DULoxetine HCl 60 MG Oral Capsule Delayed Release Particles (Cymbalta) TAKE 1 CAPSULE BY MOUTH EVERY DAY DO NOT CRUSH OR CHEW 90 Capsule 3 4 Active traZODone HCl 100 MG Oral Tablet (Desyrel) TAKE 1 TABLET BY MOUTH EVERYDAY AT BEDTIME 90 Tablet 3 5 Active Pantoprazole Sodium 40 MG Oral Tablet Delayed Release (Protonix) Take 1 Tablet by mouth in the morning. 30 Tablet 5 5 Active Linzess 290 MCG Oral Capsule (linaCLOtide) Take 1 Capsule by mouth daily before breakfast. 30 Capsule 3 5 Active busPIRone HCl 15 MG Oral Tablet (Buspar) TAKE 1 TABLET BY MOUTH EVERY MORNING AND 1 TAB AT BEDTIME 180 Tablet 2 5 Active documented as of this encounter (statuses as of 05/10/2024) Active Problems Problem Noted Date Diagnosed Date [...] as of this encounter (statuses as of 05/10/2024) Resolved Problems Problem Noted Date Diagnosed Date Resolved Date RLS (restless legs syndrome) 07/01/2022 07/03/2023 Fatty liver 10/31/2021 07/03/2023 Morbid (severe) obesity due to excess calories 05/02/2019 05/02/2019 Depression with anxiety 05/28/2016 06/0 09/2018 Anemia 09/04/2009 10/04/2021 Encounter for supervision of other normal 05/15/2005 06/03/2005 Overview (07/31/2015): ICD-10 update of inactive term ADVANCE DIRECTIVE INFORMATION 04/14/2005 10/04/2021 Overview (04/14/2005): No, Advance Directive brochure given to patient. Tobacco use disorder 04/14/2005 016 Normal , first 11/24/20000 10/2001 Major depressive disorder 07/30/1999 Overview (01/20/2017): ICD-10 update of inactive term documented as of this encounter (statuses as of 05/10/2024) Immunizations Name Administration Dates Next Due DTP Vaccine 01/20/1989, 7,01/27/1985,10/25,1984 HPV Vaccine, 4-Valent 09/04/2009 Hepatitis B Vaccine 01/22/1993,08/21/1992,1992 Hepatitis B, 20+ yrs 01/22/1993,08/21/1992,07/17 MMR - Measles/Mumps/Rubella Vaccine 1991,0 11/10/1985 OPV - Polio Virus Vaccine (Oral) 989,01/27/1985,1984,08/30 PPD 09/04/2009, 9,10/07/2007,11/10 Pneumococcal Polysaccharide PPV23 (Pneumovax) 09/04/2009 Seasonal Influenza, PF, 6 M & above, IM , (FluLaval or Fluzone) 01/26/2019 TB Shayla Test 07/14/1994 TD - Tetanus/Diptheria (ADULT) 03/19/1999 TDAP (age 10 and older)(Boostrix) 10/31/2021 TDAP, Age 7 and older, IM (Adacel) 09/04/2009 Varicella Vaccine (Chicken Pox) 03/30/1992 documented as of this encounter Social History [...] ages 0-17 years) Not on file 11/04/2023 Food Insecurity Answer Date Recorded Within the past 12 months, y ou worried that your food would run out before you got the money to buy more. Never true 11/04/19 24 Within the past 12 months, t he food you bought just didn't last and you didn't have money to get more. Never true 11/04/2023 Do you need food for this week? No 11/04/2023 Comments No Sex and Gender Information Value Date Recorded Sex Assigned at Female 08/12/2018 11:00 AM EDT Legal Sex Female 5:51 AM EST Gender Identity Female 08/12/2018 11:00 AM EDT Sexual Orientation Straight 08/12/2018 11 :00 AM EDT documented as of this encounter Miscellaneous Notes * Telephone Encounter - Corrie Marin OSA - 05/10/2024 3:30 PM EST Pt is devante'd 08/18/24. * Telephone Encounter - Ellie Garcia MD - 05/10/2024 12:27 PM EST Please schedule repeat ERCP with me at [facility] in 3 months for stent removal. documented in this encounter Plan of Treatment Upcoming Encounters Date Type Department Care Team (Latest Contact Info) Description 05/24/2024 11:00 AM EST Office Visit Gastroenterology , [facility] [address] [place] [address] Myranda Mckeon CRNP [address] [place] [address] 08/18/2024 8:00 AM EDT Hospital Encounter ENDO OSSC, Endoscopy Room [facility] [address] [place], [place] [phone] Ellie Garcia MD [address] [place] [address] 08/18/2024 8:00 AM EDT - 08/18/2024 8:45 AM EDT Surgery ENDO OSSC, Endoscopy Room [facility] [address] [place] [phone] Ellie Garcia MD [address] [place] [address] ENDOSCOPIC RETROGRADE CHOLANGIOPANCREATOGRAPHY (ERCP) DIAGNOSTIC 11/04/2024 8:40 AM EDT Office Visit [facility] [address] [facility] [place] [address] Williams Hauser III, MD [address] [place] [place] [address] Scheduled Procedures Name Priority Associated Diagnoses Date/Ti me ENDOSCOPIC RETROGRADE CHOLANGIOPANCREATOGRAPHY (ERCP) DIAGNOSTIC History of acute pancreatitis Irritable bowel syndrome with constipation 05/10/2024 11:00 AM EST ESOPHAGOGASTRODUODENOSCOPY ( EGD), FLEXIBLE, TRANSORAL, ENDOSCOPIC ULTRASOUND History of acute pancreatitis Irritable bowel syndrome with constipation 05/10/2024 11:00 AM EST ENDOSCOPIC RETROGRADE CHOLANGIOPANCREATOGRAPHY (ERCP) DIAGNOSTIC Chronic recurrent pancreatitis (HCC) 08/18/2024 8:00 AM EDT ENDOSCOPIC RETROGRADE CHOLANGIOPANCREATOGRAPHY (ERCP) W/STENT REMOVAL AND EXCHANGE; INC DILATION, GUIDE WIRE AND SPHINCTEROTOMY Chronic recurrent pancreatitis (HCC) 08/18/2024 8:00 AM EDT Health Maintenance Due Date Last Done Comments [...] this encounter Medical Devices Implanted Type Area Ramp And Cargo Supervisor Device Identifier Shelf Expiration Date Model / Serial / Lot Cartridge Esophyx Z+ - [id number] Implanted:Qty: 1 on 04/28/2019 by Ellie Garcia MD at OR [facility] [employer] 11/03/2020 [id number] / / [id number] Description:fasteners 10@11, 10@1, 4@5, 4@7 placed at GE junction (code 0278) Stent Panc Sgl Pigtail [id number] - [id number] Implanted:Qty: 1 on 05/10/2024 by Ellie Garcia MD at ENDOSCOPY [facility] N/A: Stomach COOK : IMELDA MAYO 09/29/2025 [id number] / / [id number] documented as of this encounter Care Teams Director Of Market Intelligence Relationship Specialty Start Date End Date Williams Hauser III, MD [address] [place] [address] PCP - General Family Medicine 10/27/22 documented as of this encounter
--- OUTSIDE RECORDS SUMMARY | 2024-05-11 06:39 | External Medical Summary | Summary of Care ---
Author Name Unknown Organization [facility] Address [address] [facility] [place] [address] Phone [phone] Care Team Providers Care Singer And Unloader Name Role Phone Murtaza BENTON MD, Williams Payton Primary Care Provider [phone] Reason for Visit * Reason Onset Date Comments Preop Pt Assessment 05/04/2024 Encounter Details Date Type Department Care Team (Late st Contact Info) Description 05/04/2024 Telephone Pre Surgery Center, [facility] [address] [place] [address] Ellie Garcia MD [address] [place] [address] Preop Pt Assessment Allergies Active Allergy Reactions Criticality Noted Date Comments Clindamycin Other (Please comment) 12/21/2014 Burned taste Muscle pain Doxycycline Low 08/22/2020 Other reaction(s): Metallic Taste Penicillins Unknown 10/07/2007 As a child Other reaction(s): UNKNOWN, CHILD ALLERGY documented as of this encounter (statuses as of 05/04/2024) Medications NATURAL SUPPLEMENT Take by mouth daily. Medical marijuana Active Loratadine 10 MG Oral Tablet Take 1 Tablet by mouth in the morning. Active Fluticasone Propionate 50 MCG/ACT Nasal Suspension Administer 1 [place] into nostril in the morning. Active Ondansetron HCl 4 MG Oral Tablet (Zofran)Indication s:Nausea and vomiting, intractability of vomiting not specified, unspecified vomiting type Take 1 Tablet by mouth every 6 hours as needed for Nausea. 30 Tablet 1 Active Cyclobenzaprine HCl 5 MG Oral [...] as of this encounter (statuses as of 05/04/2024) Active Problems Problem Noted Date Diagnosed Date [...] as of this encounter (statuses as of 05/04/2024) Resolved Problems Problem Noted Date Diagnosed Date [...] as of this encounter (statuses as of 05/04/2024) Immunizations Name Administration Dates Next Due HPV [...] Encounter ENDO [facility], Endoscopy Room [facility] [address] [place] [phone] Ellie Garcia MD [address] [place] [address] 05/10/2024 11:15 AM EST - 05/10/2024 12:15 PM EST Surgery ENDO [facility], Endoscopy Room [facility] [address] [place] [phone] Ellie Garcia MD [address] [place] [address] ENDOSCOPIC RETROGRADE CHOLANGIOPANCREATOGRAPHY (ERCP) DIAGNOSTIC 05/24/2024 11:00 AM EST Office Visit Gastroenterology , [facility] [address] [place] [address] Myranda Mckeon CRNP [address] [place] [address] 11/04/2024 8:40 AM EDT Office Visit Family Practice [facility] [address] [place] [address] [place] [address] Williams Hauser III, MD [address] [place] [address] Scheduled Procedures Name Priority Associated Diagnoses Date/Ti [...] this encounter Medical Devices Implanted Type Area Phlebotomist Lab Assistant Device Identifier Shelf Expiration Date Model / Serial / Lot Cartridge Esophyx Z+ - [id number] Implanted:Qty: 1 on 04/28/2019 by Ellie Garcia MD at OR [facility] [employer] 11/03/2020 [id number] / / [id number] Description:fasteners 10@11, 10@1, 4@5, 4@7 placed at GE junction (code 0278) documented as of this encounter Care Teams Singer And Unloader Relationship Specialty Start Date End Date Williams Hauser III, MD [address] [place] [address] PCP - General Family Medicine 10/27/22 documented as of this encounter
--- OUTSIDE RECORDS SUMMARY | 2024-05-11 06:40 | External Medical Summary ---
Author Name Unknown Address Unknown Organization K0G:[facility] [place] [address] Laboratory Report Ordering Provider Test Date Status KENAN,CRISTI 04/12/2024 10:54:17 Final Observation Date Value Abnormality Reference (Units ) Status AST (Aspartate aminotransferase) 04/12/2024 10:54:17 24 10-35 (U/L) Final Results may be falsely eleva cameron due to hemolysis. Performing Location [facility] - [address] [place] [address]
--- OUTSIDE RECORDS SUMMARY | 2024-05-11 06:40 | External Medical Summary | Summary of Care ---
Author Name Unknown Organization [facility] Address [address] [facility] [place] [place] [address] Phone [phone] Care Team Providers Care Medicine Technologist Name Role Phone Murtaza BENTON MD, Williams Payton Primary Care Provider [phone] Reason for Visit * Reason Comments Acute Encounter Details Date Type Department Care Team (Latest Contact Info) Description 04/01/2024 10:40 AM EST [facility] [address] [facility] [place] [place] [address] Brian Giordano, DO [address] [facility] [place] [address] Urinary urgency*; Screening for depression; Fatty (change of) liver, not elsewhere classified; Spondylosis without myelopathy or radiculopathy, sacral and sacrococcygeal region; Depression, major, recurrent, moderate (HCC); Major depressive disorder with single episode, remission status unspecified; Pain in joint, pelvic region and thigh, left; Abdominal pain, left lower quadrant Allergies Active Allergy Reactions Criticality Noted Date Comments Clindamycin Other (Please comment) 12/21/2014 Burned taste Muscle pain Doxycycline Low 08/22/2020 Other reaction(s): Metallic Taste Penicillins Unknown 10/07/2007 As a child Other reaction(s): UNKNOWN, CHILD ALLERGY documented as of this encounter (statuses as of 04/04/2024) Medications NATURAL SUPPLEMENT Take by mouth daily. Medical marijuana Active Loratadine 10 MG Oral Tablet Take 1 Tablet by mouth in the morning. Active Fluticasone Propionate 50 MCG/ACT Nasal Suspension Administer 1 [place] into nostril in the morning. Active Ondansetron HCl 4 MG Oral Tablet (Zofran)Indication s:Nausea and vomiting, intractability of vomiting not specified, unspecified vomiting type Take 1 Tablet by mouth every 6 hours as needed for Nausea. 30 Tablet 03/14/20 21 Active traZODone HCl 100 MG Oral Tablet (Desyrel) TAKE 1 TABLET BY MOUTH EVERYDAY AT BEDTIME 90 Tablet 3 04/13/19 24 Active busPIRone HCl 15 MG Oral Tablet [...] CHEW 90 Capsule 3 01/07/20 24 Active Pantoprazole Sodium 40 MG Oral Tablet Delayed Release (Protonix) Take 1 Tablet by mouth in the morning. Active Linzess 290 MCG Oral Capsule (linaCLOtide) Take 1 Capsule by mouth daily before breakfast. 30 Capsule 3 01/06/20 24 Active Additional Information Patient not taking.Reported on 04/01/2024 documented as of this encounter (statuses as of 04/04/2024) Active Problems Problem Noted Date Diagnosed Date Fatty (change of) liver, not elsewhere classifie [...] as of this encounter (statuses as of 04/04/2024) Resolved Problems Problem Noted Date Diagnosed Date [...] as of this encounter (statuses as of 04/04/2024) Immunizations Name Administration Dates Next Due HPV [...] 0 10/17/2004 - 10/17/2014 Smokeless Tobacco: Never Tobacco Cessation:Counseling Given: Not Answered Alcohol Use Standard Drinks/Week Comments Not Currently [...] AM EDT documented as of this encounter Last Filed Vital Signs Vital Sign Reading Time Taken Comments Blood Pressure 118/78 04/01/2024 10:39 AM EST Pulse 67 04/01/2024 10:39 AM EST Temperature 36.7 C (98.1 F) 04/01/2024 10:[address] Respiratory Rate - - Oxygen Saturation 97% 04/01/2024 10:39 AM EST Inhaled Oxygen Concentration - - Weight 73.3 kg (161 lb 9.6 oz) 04/01/2024 10:39 AM EST Height 160 cm (5' 3") 04/01/2024 10:39 AM EST Body Mass Index 28.63 04/01/2024 10:39 AM EST documented in this encounter Progress Notes * Brian Giordano, - 04/01/2024 10:55 AM EST Subjective: Rosalina Teran is a 38 year old female. Chief Complaint Patient presents with Acute HPI: Left flank with an area of tingling. Sees the chiropractor monthly and seeing him today. Told she has L hip arthritis. L hip and pelvis also hurting. When she lays on her L side she gets achy. It is more higher up. She is worried about ovarian cancer. She has tried aleve and tylenol. She triedheat. It has been going on for a month. She had an episode of mild incontinence. No burning with urination. Gets some sudden urgency to pee. History of pancreatitis. She tried a muscle relaxer. PMHx, meds, and allergies reviewed Patient Active Problem List Diagnosis Other allergic rhinitis Major depressive disorder, recurrent, mild (HCC) DWAIN (generalized anxiety disorder) Other spondylosis with radiculopathy, lumbar region Other spondylosis with radiculopathy, cervical region Depression, major, recurrent, moderate (HCC) Spondylosis without myelopathy or radiculopathy, cervical region Medical marijuana use Fatty (change of) liver, not elsewhere classified Spondylosis without myelopathy or radiculopathy, sacral and sacrococcygeal region Major depressive disorder with single episode Current Outpatient Medications Medication Sig Dispense Refill NATURAL SUPPLEMENT Take by mouth daily. Medical marijuana Loratadine 10 MG Oral Tablet Take 1 Tablet by mouth in the morning. Fluticasone Propionate 50 MCG/ACT Nasal Suspension Administer 1 [place] into nostril in the morning. Ondansetron HCl 4 MG Oral Tablet (Zofran) Take 1 Tablet by mouth every 6 hours as needed for Nausea. 30 Tablet 0 traZODone HCl 100 MG Oral Tablet (Desyrel) TAKE 1 TABLET BY MOUTH EVERYDAY AT BEDTIME 90 Tablet 3 busPIRone HCl 15 MG Oral Tablet (Buspar) TAKE 1 TABLET BY MOUTH EVERY MORNING AND 1 TAB AT BEDTIME 180 Tablet 2 DULoxetine HCl 60 MG Oral Capsule Delayed Release Particles (Cymbalta) TAKE 1 CAPSULE BY MOUTH EVERY DAY DO NOT CRUSH OR CHEW 90 Capsule 3 Cyclobenzaprine HCl 5 MG Oral Tablet (Flexeril) Take 1 Tablet by mouth 2 times a day as needed for Muscle spasms. (Patient not taking: Reported on 04/01/2024) 20 Tablet 0 Pantoprazole Sodium 40 MG Oral Tablet Delayed Release (Protonix) Take 1 Tablet by mouth in the morning. (Patient not taking: Reported on 04/01/2024) Linzess 290 MCG Oral Capsule (linaCLOtide) Take 1 Capsule by mouth daily before breakfast. (Patientnot taking: Reported on 04/01/2024) 30 Capsule 3 No current facility-administered medications for this visit. Review of patient's allergies indicates: Allergen Reactions Clindamycin Other (Please comment) Burned taste Muscle pain Penicillins Unknown As a child Other reaction(s): UNKNOWN, CHILD ALLERGY Doxycycline Other reaction(s): Metallic Taste OBJECTIVE: BP 118/78 (BP Site: Left Arm, BP Position: Sitting, BP Cuff Size: Regular) | Pulse 67 | Temp 98.1 F (36.7 C) (Tympanic) | Ht 5' 3" (1.6 m) | Wt 161 lb 9.6 oz (73.3 kg) | SpO2 97% | BMI 28.63 kg/m | BSA 1.8 m Estimated body mass index is 28.63 kg/m as calculated from the following: Height as of this encounter: 5' 3" (1.6 m). Weight as of this encounter: 161 lb 9.6 oz (73.3 kg). BP Readings from Last 3 Encounters: 04/01/24 118/78 01/06/24 109/62 11/25/23 106/64 Wt Readings from Last 3 Encounters: 04/01/24 161 lb 9.6 oz (73.3 kg) 01/06/24 157 lb (71.2 kg) 11/25/23 151 lb 3.2 oz (68.6 kg) ROS: Negative except for above PHYSICAL EXAM: General: alert, healthy, and no distress Head: Normocephalic, No masses, lesions, tenderness or abnormalities Heart: regular rate & rhythm, no murmur, and no gallops Lungs: chest symmetric with normal AP diameter, no chest deformities noted, no chest wall tenderness, lungs clear to auscultation Abdomen: abdomen soft, non-tender, normal bowel sounds, and no masses or organomegaly Back: back symmetric, no curvature, no costovertebral angle tenderness, range of motion is normal Skin: no rash in the area of tingling ASSESSMENT/Plan Urinary urgency (Primary) - URINALYSIS, REFLEX TO MICROSCOPIC; Future; Expected date: 04/01/2024 - US PELVIS TRANS-VAGINAL NON-OB; Future; Expected date: 04/08/2024 Screening for depression - DEPRESSION SCREENING PERFORMED Fatty (change of) liver, not elsewhere classified Spondylosis without myelopathy or radiculopathy, sacral and sacrococcygeal region Depression, major, recurrent, moderate (HCC) Major depressive disorder with single episode, remission status unspecified Pain in joint, pelvic region and thigh, left - US PELVIS TRANS-VAGINAL NON-OB; Future; Expected date: 04/08/2024 Abdominal pain, left lower quadrant - BASIC METABOLIC PANEL; Future; Expected date: 04/01/2024 - LIPASE; Future; Expected date: 04/01/2024 I spent over 25 minutes of time face to face with more than half of it being in counseling and coordination of care Check urine and blood work for cause of pain, may be MSK. Most concerned about ovarian cancer, willcheck US. The above was discussed and understanding was expressed. Brian Giordano DO documented in this encounter Nursing Notes * Kain Martin CMA - 04/01/2024 10:42 AM EST The patient has been properly identified by confirmation of name and date of . No chief complaint on file. documented in this encounter Plan of Treatment Upcoming Encounters Date Type Department Care Team (Late st Contact Info) Description 04/05/2024 12:30 PM EST Imaging Radiology [address] [place] [address] 11/04/2024 8:40 AM EDT Office Visit Family Practice [facility] [address] [facility] [place] [address] Murtaza IIIWilliams MD [address] [facility] [place] [address] Scheduled Orders Name Type Priority Associated Diagnoses Orde r Schedule US PELVIS TRANS-VAGINAL NON-OB Medical Imaging Routine Urinary urgency Pain in joint, pelvic region and thigh, left Expected: 04/08/2024, Expires: 05/02/2025 Health Maintenance Due Date Last Done Comments [...] this encounter Medical Devices Implanted Type Area Medical Customer Service Representative Device Identifier Shelf Expiration Date Model / Serial / Lot Cartridge Esophyx Z+ - [id number] Implanted:Qty: 1 on 04/28/2019 by Ellie Garcia MD at OR [facility] [employer] 11/03/2020 [id number] / / [id number] Description:fasteners 10@11, 10@1, 4@5, 4@7 placed at GE junction (code [id number]) documented as of this encounter Results * (ABNORMAL) LIPASE (04/01/2024 11:19 AM EST) Pathologist [facility] Lipase 143(H) 13 - 60 U/L 04/01/2024 8:27 PM EST [facility] Blood Venous blood specimen / Unknown Venipuncture / Unknown 04/01/2024 11:19 AM EST 04/01/2024 11:19 AM EST Brian Giordano DO LAB BLOOD ORDERABLES Final Result Performing Organization Address City/State/[facility] Co de Phone Number [facility] [address] [place] [address] * BASIC METABOLIC PANEL (04/01/2024 11:19 AM EST) Pathologist [facility] BUN 15 6 - 20 mg/dL 04/01/2024 1:31 PM EST LAB[facility] [place] [facility]- CREATININE 0.9 0.5 - 1.0 mg/dL 04/01/2024 1:31 PM EST [facility] [place] 56- EGFR 80 >=60 mL/min 04/01/2024 1:31 PM EST [facility] 56- Comment:eGFR is calculated b ased on the CKD-EPI 2020 equation. SODIUM 141 135 - 146 mmol/L 04/01/2024 1:31 PM EST [facility]ORY [place] 56- POTASSIUM 4.7 3.5 - 5.1 mmol/L 04/01/2024 1:31 PM EST [facility] 56- CHLORIDE 103 98 - 107 mmol/L 04/01/2024 1:31 PM EST [facility] [place] 56- CO2 26 22 - 32 mmol/L 04/01/2024 1:31 PM EST [facility] 56- ANION GAP 12 7 - 15 mmol/L 04/01/2024 1:31 PM [facility] 56- GLUCOSE 98 70 - 120 mg/dL 04/01/2024 1:31 PM [facility] 56- CALCIUM 9.4 8.4 - 10.2 mg/dL 04/01/2024 1:31 PM [facility] 56 Blood Venous blood specimen / Unknown Venipuncture / Unknown 04/01/2024 11:19 AM EST 04/01/2024 11:19 AM EST us Brian Giordano DO LAB BLOOD ORDERABLES Final Result [address] [place] [address] * URINALYSIS, REFLEX TO MICROSCOPIC (04/01/2024 11:19 AM EST) Color, Urine Yellow Light Yellow, Yellow, Dark Yellow 04/01/2024 11:[address] Clarity, Urine Clear Clear 04/01/2024 11:[address] Glucose, Urine Negative Negative mg/dL 04/01/2024 11:[address] Bilirubin, Urine Negative Negative 04/01/2024 11:[address] Ketone, Urine Negative Negative mg/dL 04/01/2024 11:[address] Specific [place], Urine 1.020 1.003 - 1.030 04/01/2024 11:35 AM [place] [address]- Blood, Urine Negative Negative 04/01/2024 11:35 AM [facility] 56 pH, Urine 7.5 5.0 - 7.5 Units 04/01/2024 11:35 AM [facility] 56 Protein, Urine Negative Negative mg/dL 04/01/2024 11:35 AM [facility] 56 Urobilinogen, Urine 0.2 0.2, 1.0 mg/dL 04/01/2024 11:35 AM [place] [address]- Nitrite, Urine Negative Negative 04/01/2024 11:35 AM [facility] 56- Esterase, Urine Negative Negative 11:35 AM EST [facility] 56- Comment, Urine 04/01/2024 11:35 AM EST [facility] 56- Comment:Screen negative - Mi croscopic not performed. Urine Urine specimen obtained by clean catch procedure / Unknown Non-blood Collection / Unknown 04/01/2024 11:19 AM EST 04/01/2024 11:19 AM EST Brian Giordano DO LAB URINE ORDERABLES Final Result [facility] 56- [address] [facility] [place] [address] documented in this encounter Visit Diagnoses Diagnosis Urinary urgency- Primary Urgency of urination Screening for depression Fatty (change of) liver, not elsewhere classified Spondylosis without myelopathy or radiculopathy, sacral and sacrococcygeal region Depression, major, recurrent, moderate (HCC) Major depressive disorder, recurrent episode, moderate Major depressive disorder with single episode, remission status unspecified Pain in joint, pelvic region and thigh, left Abdominal pain, left lower quadrant documented in this encounter Care Teams Medicine Technologist Relationship Specialty Start Date End Date Williams Hauser III, MD [address] [facility] [place] [address] PCP - General Family Medicine 10/27/22 documented as of this encounter
--- OUTSIDE RECORDS SUMMARY | 2024-05-11 06:40 | External Medical Summary ---
Author Name Unknown Address Unknown Organization K01:[facility] [address] [place] [address] Laboratory Report Ordering Provider Test Date Status KATHERINE PELAYO 04/14/2024 14:56:58 Final Observation Date Value Abnormality Reference (Units ) Status Magnesium 04/14/2024 14:56:58 1.9 1.5-2.6 (m g/dL) Final Performing Location [facility] - [address] [place] [address]
--- OUTSIDE RECORDS SUMMARY | 2024-05-11 06:40 | External Medical Summary | Summary of Care ---
Author Name Unknown Organization [facility] Address [address] [place] [place] [place] [address] Phone [phone] Care Team Providers Care Bone Grinder Name Role Phone Murtaza BENTON MD, Williams Payton Primary Care Provider [phone] Reason for Visit * Reason Comments Outpatient Testing Encounter Details Date Type Department Care Team (Late st Contact Info) Description 04/12/2024 11:00 AM EST Laboratory Laboratory, [facility] [address] [place] [address] [facility] [address] [place] [address] Encounter for long-term (current) use of medications Allergies Active Allergy Reactions Criticality Noted Date Comments Clindamycin Other (Please comment) 12/21/2014 Burned taste Muscle pain Doxycycline Low 08/22/2020 Other reaction(s): Metallic Taste Penicillins Unknown 10/07/2007 As a child Other reaction(s): UNKNOWN, CHILD ALLERGY documented as of this encounter (statuses as of 04/12/2024) Medications NATURAL SUPPLEMENT Take by mouth daily. Medical marijuana Active Loratadine 10 MG Oral Tablet Take 1 Tablet by mouth in the morning. Active Fluticasone Propionate 50 MCG/ACT Nasal Suspension Administer 1 [place] into nostril in the morning. Active Ondansetron [...] BEDTIME 90 Tablet 3 04/07/19 25 Active documented as of this encounter (statuses as of 04/12/2024) Active Problems Problem Noted Date Diagnosed Date [...] as of this encounter (statuses as of 04/12/2024) Resolved Problems Problem Noted Date Diagnosed Date [...] as of this encounter (statuses as of 04/12/2024) Immunizations Name Administration Dates Next Due HPV [...] Visit Family Practice [facility] [address] [place] [address] Williams Hauser III, MD 200 [facility] [place] [address] Pending Results Name Type Priority Associated Diagnoses Date /Time ALT Lab Routine Encounter for long-term (current) use of medications 04/12/2024 10:54 AM EST AST Lab Routine Encounter for long-term (current) use of medications 04/12/2024 10:54 AM EST Health Maintenance Due Date Last [...] this encounter Medical Devices Implanted Type Area Mortgage Loan Funder Device Identifier Shelf Expiration Date Model / Serial / Lot Cartridge Esophyx Z+ - [id number] Implanted:Qty: 1 on 04/28/2019 by Ellie Garcia MD at OR [facility] [employer] 11/03/2020 [id number] / / [id number] Description:fasteners 10@11, 10@1, 4@5, 4@7 placed at [facility] (code 0278) documented as of this encounter Visit Diagnoses Diagnosis Encounter for long-term (current) use of medications Encounter for long-term (current) use of other medications documented in this encounter Care Teams Bone Grinder Relationship Specialty Start Date End Date Williams Hauser III, MD [address] [place] [address] PCP - General Family Medicine 10/27/22 documented as of this encounter
--- OUTSIDE RECORDS SUMMARY | 2024-05-11 06:40 | External Medical Summary ---
Author Name Unknown Address Unknown Organization K01[facility] [address] [facility] [address] Laboratory Report Ordering Provider Test Date Status MAREK PELAYOISO 04/12/2024 10:54:17 Final Observation Date Value Abnormality Reference (Units ) Status Triglyceride 04/12/2024 10:54:17 109 <=174 ( mg/dL) Final Triglyceride Reference Range s (mg/dL):
<150 Acceptable
150-174 Borderline high
175-499 High
>=500 Very high Cholesterol 04/12/2024 10:54:17 203 Above high normal <200 (mg/dL) Final Total Cholesterol Reference Ranges (mg/dL):
<200 Desirable
200-239 Borderline high
>=240 High HDL 04/12/2024 10:54:17 54 >49 (mg/dL ) Final HDL Cholesterol Reference Ra nges (mg/dL):
>=60 High (Desirable)
<50 Low (Undesirable) For Females
<40 Low (Undesirable) For Males NON-HDL CHOLESTEROL 04/12/2024 10:54:17 149 <=159 (mg/dL) Final Non-HDL Cholesterol Referenc e Range (mg/dL):
<100 Target level for high risk ASCVD patient
<130 Optimal for general population
130-159 Near optimal for general population
160-189 Borderline High
190-219 High
>=220 Very High LDL, (calculated) 04/12/2024 10:54:17 127 <= 129 (mg/dL) Final LDL Cholesterol Reference Ra nges (mg/dL):
<70 Target level for high risk ASCVD patient
<100 Optimal for general population
100-129 Near optimal for general population
130-159 Borderline high
160-189 High
>=190 Very high Performing Location [facility] [place] [address] [facility] [address]
--- OUTSIDE RECORDS SUMMARY | 2024-05-11 06:40 | External Medical Summary | Summary of Care ---
Author Name Unknown Organization [facility] Address [address] [place] [address] Phone [phone] Care Team Providers Care Keyboard Operator Name Role Phone Murtaza BENTON MD, Williams Payton Primary Care Provider [phone] Reason for Visit * Reason Comments Follow Up Pt ref back by Dr Owen amezquita for elevated lipase. Hx pancreatitis x's 2. Has seen Dr Vizcaino in the past. Pt having L flank pain that radiates into her back. Hx IBS-C. Pt feels her sx resembles pancreatitis like they have in the past. * Evaluate & Treat - Unlimited Visits (Within 10 days (routine)) - Pending Review Specialty Diagnoses / Procedures Referred By Rosie briggs Referred To Contact Gastroenterology Diagnoses Elevated lipase Williams Hauser III, MD [address] [place] [address] Phone: tel: fax: Referral ID Status Reason Start Date Expiration Date Visits Requested Visits Authorized [id number] Pending Review Specialty Services Required 04/13/[phone] Encounter Details Date Type Department Care Team (Late st Contact Info) Description 04/14/2024 2:00 PM EST Office Visit Gastroenterology, [facility] [address] [address] Myranda Mckeon CRNP [address] [address] History of acute pancreatitis*; Pancreatic divisum; Irritable bowel syndrome with constipation Allergies Active [...] Propionate 50 MCG/ACT Nasal Suspension Administer 1 [place] into nostril in the morning. Active Ondansetron [...] morning. 30 Tablet 5 04/14/19 25 Active Pantoprazole Sodium 40 MG Oral Tablet Delayed Release (Protonix) Take 1 Tablet by mouth in the morning. 025 Discontin ued(Refil l) documented as of [...] Sign Reading Time Taken Comments Blood Pressure 124/82 04/14/2024 1:59 PM EST Pulse - - Temperature 36.7 C (98 F) 04/14/2024 1:59 PM EST Respiratory Rate - - Oxygen Saturation - - Inhaled Oxygen Concentration - - Weight 72.1 kg (159 lb) 04/14/2024 1:59 PM EST Height - - Body Mass Index 28.17 04/01/2024 10:39 AM EST documented in this encounter Progress Notes * Myranda Mckeon CRNP - 04/14/2024 2:00 PM EST Gastroenterology Outpatient Visit 04/14/2024 Referring physician:Williams Hauser III, MD PCP: Williams Hauser III, MD Past medical history: Irritable bowel syndrome-constipation History of idiopathic acute pancreatitis, 07/2023 Possible pancreatic divisum per EUS and MRI Genetic testing for pancreatitis negative History of laparoscopic cholecystectomy 08/22/2020 GERD, history of TIF fundoplication; failed CC: Elevated lipase level, left lower quadrant pain HPI: Very pleasant 38-year-old female presents today to the Gastroenterology office today for an acute appointment. First week of February>> develop consult Left back/flank pain -- numbness and tingling/aching(prior pancreatitis left rib pain and epigastric pain). Went to see her chiropractor>> did not feel that this was a musculoskeletal issue as she was not out of alignment Seen by PCP on 04/01 due to ongoing left flank pain. Lipase was performed which was elevated (143).Patient presented to [facility] Emergency Department, 04/02/2024. Blood work was unremarkable. Lipase level at that time was also normal. CTAP of the abdomen and pelvis with IV contrast only performed. Imaging was unremarkable. No evidence of pancreatitis. No IVF given. 04/14/2024: Today the patient presents with ongoing left back/flank discomfort. Pain is constant. Rates it about a 4/10. States that she uses a lot of medical marijuana which helps her with her pain. Denies any abdominal pain but does occasionally have indigestion. Not currently taking PPI. Tends to be more on the constipated side-- going every other day, did have a formed bowel movement today. Denies diarrhea. No blood in the stools. No jaundice. No fever or chills. Has not been following a low-fat diet. Drinks about 4 cups of coffee daily. Does not drink much water, notes under 40 oz a day. Does admitto a few alcoholic beverages over the weekend. Previous GI workup: Colonoscopy: 04/28/2023--ileum normal. Nonbleeding internal hemorrhoids. No specimens collected. EGD: 07/22/2022--normal esophagus. TIF fundoplication found. Rap appears intact. Normal stomach. Normal duodenal bulb and 2nd portion of the duodenum. EUS 07/22/2022--no significant pathology in the ampulla, CBD. Evidence of cholecystectomy. No evidence of significant pathology in the liver. No significant pathology of the entire pancreas. Pancreatic divisum suspected. No specimens collected. CTAP with oral contrast only 12/2020--unremarkable Social history: Tobacco use: None ETOH use: Occasional, did have wine cooler over the weekend Drug use: Heavy medical marijuana use NSAID use: None Caffeine use: For cups of coffee daily Family Hx: No known family history of inflammatory bowel disease or GI malignancy. Current Outpatient Medications Medication Sig Dispense Refill NATURAL SUPPLEMENT Take by mouth daily. Medical marijuana Ondansetron HCl 4 MG Oral Tablet (Zofran) Take 1 Tablet by mouth every 6 hours as needed for Nausea. 30 Tablet 0 busPIRone HCl 15 MG Oral Tablet (Buspar) TAKE 1 TABLET BY MOUTH EVERY MORNING AND 1 TAB AT BEDTIME 180 Tablet 2 DULoxetine HCl 60 MG Oral Capsule Delayed Release Particles (Cymbalta) TAKE 1 CAPSULE BY MOUTH EVERY DAY DO NOT CRUSH OR CHEW 90 Capsule 3 traZODone HCl 100 MG Oral Tablet (Desyrel) TAKE 1 TABLET BY MOUTH EVERYDAY AT BEDTIME 90 Tablet 3 Pantoprazole Sodium 40 MG Oral Tablet Delayed Release (Protonix) Take 1 Tablet by mouth in the morning. 30 Tablet 5 Loratadine 10 MG Oral Tablet Take 1 Tablet by mouth in the morning. Fluticasone Propionate 50 MCG/ACT Nasal Suspension Administer 1 [place] into nostril in the morning. Cyclobenzaprine HCl 5 MG Oral Tablet (Flexeril) Take 1 Tablet by mouth 2 times a day as needed for Muscle spasms. (Patient not taking: Reported on 04/01/2024) 20 Tablet 0 Linzess 290 MCG Oral Capsule (linaCLOtide) Take 1 Capsule by mouth daily before breakfast. (Patientnot taking: Reported on 04/01/2024) 30 Capsule 3 No current facility-administered medications for this visit. Past Medical History: Diagnosis Date Depressive disorder, not elsewhere classified 3- not currently on meds Early onset of delivery 05/16/01 Excessive or frequent menstruation Past Surgical History: Procedure Laterality Date COLONOSCOPY, DIAGNOSTIC (RECTUM) 03/08/2020 fair prep, normal / COLONOSCOPY FLEXIBLE PROXIMAL DIAGNOSTIC performed by Ellie Garcia MD at ENDOSCOPY [facility] COLONOSCOPY, DIAGNOSTIC (RECTUM) 04/28/2023 hemorrhoids/COLONOSCOPY FLEXIBLE PROXIMAL DIAGNOSTIC performed by Ellie Garcia MD at ENDOSCOPY [facility] EDG FLEX, ORAL, W/ FUNDOPLASY N/A 04/28/2019 esophyX transforal fundopllication performed/normal/ESOPHAGOGASTRODUODENOSCOPY (EGD), FLEXIBLE, TRANSORAL, DIAGNOSTIC TIF's Proc performed by Ellie Garcia MD at OR [facility] EGD, FLEXIBLE, DIAGNOSTIC 12/17/2017 reflux esophagitis/ESOPHAGOGASTRODUODENOSCOPY (EGD), FLEXIBLE, TRANSORAL, DIAGNOSTIC performed by Ellie Garcia MD at ENDOSCOPY [facility] EGD, FLEXIBLE, DIAGNOSTIC 02/21/2019 acid reflux on bx/ESOPHAGOGASTRODUODENOSCOPY (EGD), FLEXIBLE, TRANSORAL, DIAGNOSTIC performed by Ellie Garcia MD at ENDOSCOPY [facility] EGD, FLEXIBLE, DIAGNOSTIC 03/04/2019 w/ [facility] / [facility] EGD, FLEXIBLE, DIAGNOSTIC 07/22/2022 normal / ESOPHAGOGASTRODUODENOSCOPY (EGD), FLEXIBLE, TRANSORAL, DIAGNOSTIC performed by Ellie Garcia MD at ENDOSCOPY [facility] EGD, W/ENDOSCOPIC US 07/22/2022 normal / ESOPHAGOGASTRODUODENOSCOPY (EGD), FLEXIBLE, TRANSORAL, ENDOSCOPIC ULTRASOUND performed by Ellie Garcia MD at ENDOSCOPY [facility] HYSTEROSCOPY;ENDOMETRIAL ABLAT 03/17/2012 LAP;W/HYSTERECTOMY 12/07/2015 with right salpingo-oophheorectomy LAPAROSCOPY; CHOLECYSTECTOMY 08/22/2020 Dr Katherine Garvin LIGATE/CUT OVIDUCT(S) 09/01/2005 [place] PAP SCREEN 11/20/2011 wnl Social History Tobacco Use Smoking status: Former Current packs/day: 0.00 Average packs/day: 1 pack/day for 10.0 years (10.0 ttl pk-yrs) Types: Cigarettes Start date: 10/17/2004 Quit date: 10/17/2014 Years since quittin.4 Smokeless tobacco: Never Vaping Use Vaping status: Never Used Substance Use Topics Alcohol use: Not Currently Drug use: Yes Types: Marijuana Comment: Marijuana- daily Review of patient's allergies indicates: Allergen Reactions Clindamycin Other (Please comment) Burned taste Muscle pain Penicillins Unknown As a child Other reaction(s): UNKNOWN, CHILD ALLERGY Doxycycline Other reaction(s): Metallic Taste Review of Systems: See HPI for pertinent positives. All others negative, other than those noted in HPI. Physical Exam: BP 124/82 | Temp 36.7 C (98 F) | Wt 72.1 kg (159 lb) | BMI 28.17 kg/m | BSA 1.79 m GENERAL: Well developed and well nourished in no acute distress. SKIN: No rashes, ulcers, jaundice or spider angiomata. HEENT: Normocephalic, sclera clear, pharynx normal. NECK: Supple, no lymphadenopathy, no masses or thyroid enlargement. LUNGS: Clear to auscultation bilaterally, no respiratory distress or accessory muscles used. HEART: Regular rate & rhythm, no murmurs and no gallops. ABDOMEN: Normal bowel sounds, soft. Generalized abdominal tenderness. no masses or hepatosplenomegaly. EXTREMITIES: No palmar erythema, no ankle edema, no skin discoloration, no clubbing, no cyanosis. NEURO: No lateralizing findings. Sensory/Motor grossly normal. Lab data/imaging study review: Reviewed via chart/[facility] Impression/Plan: This is a(n) 38 year old female who is being evaluated in the office for ongoing care/risk management for the below diagnoses. 1. History of acute pancreatitis (Primary) 2. Pancreatic divisum Patient with a history of acute pancreatitis x2. Questionable pancreatic divisum. Now with recurrent symptoms suggestive of prior episodes of pancreatitis. [facility], [facility] Recent AST and ALT unremarkable. Extra blood work ordered including lipid panel, lipase, B12 level, and magnesium level. All other recent blood work reviewed in the [facility] system. Pancreatic elastase ordered. Will order EUS +ERCP. Discussed potential need for sphincterotomy however this can increase her risk for pancreatitis-- she is aware and would like to proceed with further evaluation. Patient requesting Dr. Ellie Garcia as he has done her procedures in the past. Notable indigestion symptoms. Restart pantoprazole 40 mg daily. Patient was encouraged to follow a clear liquid diet for 24 hours then resume a low-fat diet. Increase oral hydration with water, greater than 80 oz a day. Avoid alcohol and tobacco products. 3. Irritable bowel syndrome with constipation History of IBS-C. Possible constipation contributing to her symptoms. Not currently taking Linzess. Recommend abdominal x-ray to assess stool burden. May need to start Linzess routinely. The patient agrees to the above plan and will call with additional questions or concerns. ER with all emergencies advised. Check-out note: -Labs and KUB today -EUS/ERCP with Dr. Vizcaino -Follow up after EUS I spent a total of 40-54 minutes (exact time 40 mins) on the date of service in preparation, delivery, and documentation of the care provided to Rosalina Teran excluding any time spent in the performance of separately billed services or time spent by another provider/QHP. FAUSTO Garcia [facility] Gastroenterology, [facility] This chart was completed in part utilizing [employer] Voice Recognition Software. Grammatical errors, random word insertions, prounoun errors, and incomplete sentences are an occasional consequence of this system due to software limitations, ambient noise, and hardware issues. Any formal questions or concerns about the content, text, or information contained within the body of this dictation should be directly addressed to the provider for clarification. documented in this encounter Nursing Notes * Zoe Greenberg CMA - 04/14/2024 1:58 PM EST Chief Complaint Patient presents with Follow Up Pt ref back by Dr Hauser for elevated lipase. Hx pancreatitis x's 2. Has seen Dr Vizcaino in the past. Pt having L flank pain that radiates into her back. Hx IBS-C. Pt feels her sx resembles pancreatitis like they have in the past. documented in this encounter Plan of Treatment Upcoming Encounters Date Type Department Care Team (Latest Contact Info) Description 04/14/2024 3:10 PM EST Laboratory Laboratory, [facility] [address] [id number] McconnellJane pedro [address] [address] History of acute pancreatitis; Irritable bowel syndrome with constipation 05/10/2024 11:15 AM EST Hospital Encounter ENDO [facility], Endoscopy Room [facility] [address] [phone] Ellie Garcia MD [address] [address] 05/10/2024 11:15 AM EST - 05/10/2024 12:15 PM EST Surgery ENDO [facility], Endoscopy Room [facility] [address] [place] [phone] Ellie Garcia MD [address] [place] [address] ENDOSCOPIC RETROGRADE CHOLANGIOPANCREATOGRAPHY (ERCP) DIAGNOSTIC 05/24/2024 11:00 AM EST Office Visit Gastroenterology , [facility] [address] [place] [address] Myranda Mckeon CRNP [address] [place] [address] 11/04/2024 8:40 AM EDT Office Visit [facility] [address] [facility] [place] [address] Williams Hauser III, MD [address] [facility] [place] [address] Pending Results Name Type Priority Associated Diagnoses Date /Time XR ABDOMEN 1 VIEW Medical Imaging Routine History of acute pancreatitis Irritable bowel syndrome with constipation 04/14/2024 2:48 PM EST LIPID PANEL WITH DIRECT LDL IF TG IS HIGH Lab Routine History of acute pancreatitis Irritable bowel syndrome with constipation 04/12/2024 10:54 AM EST LIPASE Lab Routine History of acute pancreatitis Irritable bowel syndrome with constipation 04/14/2024 2:56 PM EST VITAMIN B12 Lab Routine History of acute pancreatitis Irritable bowel syndrome with constipation 04/14/2024 2:56 PM EST MAGNESIUM Lab Routine History of acute pancreatitis Irritable bowel syndrome with constipation 04/14/2024 2:56 PM EST Scheduled Orders Name Type Priority Associated Diagnoses Orde r Schedule US ENDOSCOPIC Medical Imaging Routine History of acute pancreatitis Irritable bowel syndrome with constipation Expected: 04/14/2024, Expires: 05/15/2025 ERCP Gastro Upper Routine History of acute pancreatitis Irritable bowel syndrome with constipation Ordered: 04/14/2024 PANCREATIC ELASTASE-1 Lab Routine History of acute pancreatitis Irritable bowel syndrome with constipation Expected: 04/14/2024, Expires: 04/14/2025 LIPID PANEL WITH DIRECT LDL IF TG IS HIGH Lab Routine History of acute pancreatitis Irritable bowel syndrome with constipation Expected: 04/14/2024, Expires: 04/14/2025 LIPASE Lab Routine History of acute pancreatitis Irritable bowel syndrome with constipation Expected: 04/14/2024, Expires: 04/14/2025 VITAMIN B12 Lab Routine History of acute pancreatitis Irritable bowel syndrome with constipation Expected: 04/14/2024, Expires: 04/14/2025 MAGNESIUM Lab Routine History of acute pancreatitis Irritable bowel syndrome with constipation Expected: 04/14/2024, Expires: 04/14/2025 Scheduled Procedures Name Priority Associated Diagnoses Date/Ti mi ENDOSCOPIC RETROGRADE CHOLANGIOPANCREATOGRAPHY (ERCP) DIAGNOSTIC History of acute pancreatitis Irritable bowel syndrome with constipation 05/10/2024 11:15 AM EST ESOPHAGOGASTRODUODENOSCOPY ( EGD), FLEXIBLE, TRANSORAL, ENDOSCOPIC ULTRASOUND History of acute pancreatitis Irritable bowel syndrome with constipation 05/10/2024 11:15 AM EST Health Maintenance Due Date Last Done Comments COVID-19 Vaccine ( - 2023- season) 2023 Influenza Vaccine (FLU shot) (#1) [...] this encounter Medical Devices Implanted Type Area Putty And Caulking Supervisor Device Identifier Shelf Expiration Date Model / Serial / Lot Cartridge Esophyx Z+ - [id number] Implanted:Qty: 1 on 04/28/2019 by Ellie Garcia MD at OR [facility] [employer] [facility] 11/03/2020 [id number] / / [id number] Description:fasteners 10@11, 10@1, 4@5, 4@7 placed at [facility] (code 0278) documented as of this encounter Visit Diagnoses Diagnosis History of acute pancreatitis- Primary Personal history of other diseases of digestive system Pancreatic divisum Congenital anomalies of pancreas Irritable bowel syndrome with constipation Irritable bowel syndrome History of acute pancreatitis Personal history of other diseases of digestive system Irritable bowel syndrome with constipation Irritable bowel syndrome History of acute pancreatitis Personal history of other diseases of digestive system Irritable bowel syndrome with constipation Irritable bowel syndrome documented in this encounter Care Teams Keyboard Operator Relationship Specialty Start Date End Date Williams Hauser III, MD [address] [place] [address] PCP - General Family Medicine 10/27/22 documented as of this encounter"
--- OUTSIDE RECORDS SUMMARY | 2024-05-11 06:40 | External Medical Summary | Summary of Care ---
Author Name Unknown Organization [facility] Address [address] [facility] Phone [phone] Care Team Providers Care Combination Saw Operator Name Role Phone Murtaza BENTON MD, Williams Payton Primary Care Provider [phone] Encounter Details Date Type Department Care Team (Late st Contact Info) Description 04/01/[address] [place] [phone] Fannie Hunter MD [address] [place] [address] [address] [address] Allergies Active Allergy Reactions Criticality Noted Date Comments Clindamycin Other (Please comment) 12/21/2014 Burned taste Muscle pain Doxycycline Low 08/22/2020 Other reaction(s): Metallic Taste Penicillins Unknown 10/07/2007 As a child Other reaction(s): UNKNOWN, CHILD ALLERGY documented as of this encounter (statuses as of 04/08/2024) Medications NATURAL SUPPLEMENT Take by mouth daily. Medical marijuana Active Loratadine 10 MG Oral Tablet Take 1 Tablet by mouth in the morning. Active Fluticasone Propionate 50 MCG/ACT Nasal Suspension Administer 1 [place] into nostril in the morning. Active Ondansetron HCl 4 MG Oral Tablet (Zofran)Indication s:Nausea and vomiting, intractability of vomiting not specified, unspecified vomiting type Take 1 Tablet by mouth every 6 hours as needed for Nausea. 30 Tablet 12/16/20 21 Active busPIRone HCl 15 MG Oral [...] as of this encounter (statuses as of 04/08/2024) Active Problems Problem Noted Date Diagnosed Date [...] as of this encounter (statuses as of 04/08/2024) Resolved Problems Problem Noted Date Diagnosed Date [...] as of this encounter (statuses as of 04/08/2024) Immunizations Name Administration Dates Next Due HPV [...] AM EDT documented as of this encounter Progress Notes * Fannie Hunter MD - 04/01/2024 9:44 PM EST After hours call. Patient saw her lab results online and is concerned about her lipase level. Lipase level is mildly elevated 140s. Called patient she provides a lengthy history of recurrent pancreatitis and anxieties about what is causing this she is concerned that no cause has yet been determined. She does endorse abdominal pain, she states she is dehydrated but also states she is able to drinkwater. I advised it would not be wrong to proceed to the emergency department; she agrees and will proceed to ER. documented in this encounter Plan of Treatment Upcoming Encounters Date Type Department Care Team (Late st Contact Info) Description 11/04/2024 8:40 AM EDT Office Visit Family Practice [facility] [address] [place] [address] [facility] [place] [id number] Williams Hauser III, MD [address] [facility] [place] [id number] Health Maintenance Due Date Last Done Comments [...] this encounter Medical Devices Implanted Type Area Acid Remover Device Identifier Shelf Expiration Date Model / Serial / Lot Cartridge Esophyx Z+ - [id number] Implanted:Qty: 1 on 04/28/2019 by Ellie Garcia MD at OR [facility] [employer] 11/03/2020 [id number] / / [id number] Description:fasteners 10@11, 10@1, 4@5, 4@7 placed at [facility] (code 0278) documented as of this encounter Care Teams Combination Saw Operator Relationship Specialty Start Date End Date Williams Hauser III, MD [address] [facility] [place] [address] PCP - General Family Medicine 10/27/22 documented as of this encounter
--- OUTSIDE RECORDS SUMMARY | 2024-05-11 06:40 | External Medical Summary ---
Author Name Unknown Address Unknown Organization [id number]:[facility] [address] - [address] [place] [address] Laboratory Report Ordering Provider Test Date Status KENANCRISTI 04/12/2024 10:54:17 Final Observation Date Value Abnormality Reference (Units ) Status ALT (Alanine aminotransferase) 04/12/2024 10:54:17 22 10-35 (U/L) Final Performing Location [facility] [address] [place] [id number]
--- OUTSIDE RECORDS SUMMARY | 2024-05-11 06:40 | External Medical Summary | Summary of Care ---
Author Name Unknown Organization [facility] Address [address] [facility] [place] [address] Phone [phone] Care Team Providers Care Answerer Name Role Phone Murtaza BENTON MD, Williams Payton Primary Care Provider [phone] Encounter Details Date Type Department Care Team (Late st Contact Info) Description 04/11/2024 Orders Only PATIENT PORTAL DO NOT DELETE THIS DEPT USED BY [place] [address] Allergies Active Allergy Reactions Criticality Noted Date Comments Clindamycin Other (Please comment) 12/21/2014 Burned taste Muscle pain Doxycycline Low 08/22/2020 Other reaction(s): Metallic Taste Penicillins Unknown 10/07/2007 As a child Other reaction(s): UNKNOWN, CHILD ALLERGY documented as of this encounter (statuses as of 04/11/2024) Medications NATURAL SUPPLEMENT Take by mouth daily. Medical marijuana Active Loratadine 10 MG Oral Tablet Take 1 Tablet by mouth in the morning. Active Fluticasone Propionate 50 MCG/ACT Nasal Suspension Administer 1 [place] into nostril in the morning. Active Ondansetron [...] as of this encounter (statuses as of 04/11/2024) Active Problems Problem Noted Date Diagnosed Date [...] as of this encounter (statuses as of 04/11/2024) Resolved Problems Problem Noted Date Diagnosed Date [...] as of this encounter (statuses as of 04/11/2024) Immunizations Name Administration Dates Next Due HPV [...] EDT Office Visit Family Practice [facility] [place] [address] [place] [address] Williams Hauser III, MD [address] [facility] [place] [address] Health Maintenance Due Date Last Done Comments COVID-19 Vaccine (2023- season) 2023 Influenza Vaccine (FLU shot) (#1) [...] this encounter Medical Devices Implanted Type Area Quality Control Clerk Device Identifier Shelf Expiration Date Model / Serial / Lot Cartridge Esophyx Z+ - [id number] Implanted:Qty: 1 on 04/28/2019 by Ellie Garcia MD at OR [facility] ENDOGASTRIC [employer] 11/03/2020 [id number] / / [id number] Description:fasteners 10@11, 10@1, 4@5, 4@7 placed at [facility] (code 0278) documented as of this encounter Care Teams Answerer Relationship Specialty Start Date End Date Williams Hauser III, MD [address] [place] [address] [address] PCP - General Family Medicine 10/27/22 documented as of this encounter
--- OUTSIDE RECORDS SUMMARY | 2024-05-11 06:40 | External Medical Summary ---
Author Name Unknown Address Unknown Organization [id number]:[facility] - [address] [place] [address] Laboratory Report Ordering Provider Test Date Status KATHERINE PELAYO 04/14/2024 14:56:58 Final Observation Date Value Abnormality Reference (Units ) Status Vitamin B12 04/14/2024 14:56:58 [phone] (pg/mL) Final Performing Location [facility] - [address] [place] [address]
--- OUTSIDE RECORDS SUMMARY | 2024-05-11 06:40 | External Medical Summary | Summary of Care ---
Author Name Unknown Organization [facility] Address [address] [place] [address] Phone [phone] Care Team Providers Care Golf Professional Name Role Phone Murtaza BENTON MD, Herman Payton Primary Care Provider [phone] Reason for Visit * Reason Comments eRx-Medication Refill Encounter Details Date Type Department Care Team (Late st Contact Info) Description 04/07/2024 Refill Family Practice [facility] [place] [address] [facility] [place] [address] Herman Martínez III, MD [address] [place] [address] Encounter for long-term (current) use of medications* Allergies Active Allergy Reactions Criticality Noted Date Comments Clindamycin Other (Please comment) 12/21/2014 Burned taste Muscle pain Doxycycline Low 08/22/2020 Other reaction(s): Metallic Taste Penicillins Unknown 10/07/2007 As a child Other reaction(s): UNKNOWN, CHILD ALLERGY documented as of this encounter (statuses as of 04/07/2024) Medications NATURAL SUPPLEMENT Take by mouth daily. Medical marijuana Active Loratadine 10 MG Oral Tablet Take 1 Tablet by mouth in the morning. Active Fluticasone Propionate 50 MCG/ACT Nasal Suspension Administer 1 [place] into nostril in the morning. Active Ondansetron HCl 4 MG Oral Tablet (Zofran)Indicatio ns:Nausea and vomiting, intractability of vomiting not specified, unspecified vomiting type Take 1 Tablet by mouth every 6 hours as needed for Nausea. 30 Tablet 021 Active busPIRone HCl 15 MG Oral Tablet (Buspar) TAKE 1 TABLET BY MOUTH EVERY MORNING AND 1 TAB AT BEDTIME 180 Tablet 2 024 Active Cyclobenzaprine HCl 5 MG Oral Tablet (Flexeril)Indicat ions:Left thigh pain,Muscular pain Take 1 Tablet by mouth 2 times a day as needed for Muscle spasms. 20 Tablet 024 Active Additional Information Patient not taking.Reported on 04/01/2024 DULoxetine HCl 60 MG Oral Capsule Delayed Release Particles (Cymbalta) TAKE 1 CAPSULE BY MOUTH EVERY DAY DO NOT CRUSH OR CHEW 90 Capsule 3 024 Active Pantoprazole Sodium 40 MG Oral Tablet Delayed Release (Protonix) Take 1 Tablet by mouth in the morning. Active Linzess 290 MCG Oral Capsule (linaCLOtide) Take 1 Capsule by mouth daily before breakfast. 30 Capsule 3 024 Active Additional Information Patient not taking.Reported on 04/01/2024 traZODone HCl 100 MG Oral Tablet (Desyrel) TAKE 1 TABLET BY MOUTH EVERYDAY AT BEDTIME 90 Tablet 3 025 Active traZODone HCl 100 MG Oral Tablet (Desyrel) TAKE 1 TABLET BY MOUTH EVERYDAY AT BEDTIME 90 Tablet 3 024 2024 Discontinued documented as of this encounter (statuses as of 04/07/2024) Active Problems Problem Noted Date Diagnosed Date [...] as of this encounter (statuses as of 04/07/2024) Resolved Problems Problem Noted Date Diagnosed Date [...] as of this encounter (statuses as of 04/07/2024) Immunizations Name Administration Dates Next Due HPV [...] encounter Miscellaneous Notes * Telephone Encounter - Gabriella Colin RPh - 04/07/2024 4:18 PM ESTSigned Prescriptions: Disp Refills traZODone HCl 100 MG Oral Tablet (Desyrel) 90 Tab*3 Sig: TAKE 1 TABLET BY MOUTH EVERYDAY AT BEDTIMEAuthorizing Provider: HERMAN MARTÍNEZ III User: GABRIELLA COLIN documented in this encounter Plan of Treatment Upcoming Encounters Date Type Department Care Team (Late st Contact Info) Description 11/04/2024 8:40 AM EDT Office Visit Family Practice [facility] [address] [place] [address] Herman Martínez III, MD [address] [place] [address] Scheduled Orders Name Type Priority Associated Diagnoses Orde r Schedule ALT Lab Routine Encounter for long-term (current) use of medications Expected: 04/14/2024 (Approximate), Expires: 04/07/2025 AST Lab Routine Encounter for long-term (current) use of medications Expected: 04/14/2024 (Approximate), Expires: 04/07/2025 Health Maintenance Due Date Last Done Comments [...] this encounter Medical Devices Implanted Type Area Chemical Lab Technician Device Identifier Shelf Expiration Date Model / Serial / Lot Cartridge Esophyx Z+ - [id number] Implanted:Qty: 1 on 04/28/2019 by Ellie Garcia MD at OR [facility] [employer] 11/03/2020 [id number] / / [id number] Description:fasteners 10@11, 10@1, 4@5, 4@7 placed at [facility] (code 0278) documented as of this encounter Visit Diagnoses Diagnosis Encounter for long-term (current) use of medications- Primary Encounter for long-term (current) use of other medications documented in this encounter Care Teams Golf Professional Relationship Specialty Start Date End Date Herman Martínez III, MD [address] [place] [address] PCP - General Family Medicine 10/27/22 documented as of this encounter
--- OUTSIDE RECORDS SUMMARY | 2024-05-11 06:40 | External Medical Summary ---
Author Name Unknown Address Unknown Organization [id number]:[facility] [place] [address] [place] [address] Laboratory Report Ordering Provider Test Date Status KATHERINE PELAYO 04/14/2024 14:56:58 Final Observation Date Value Abnormality Reference (Units ) Status Lipase 04/14/2024 14:56:58 32 13-60 (U/L ) Final Performing Location [facility] [place] [address] [place] [address]
--- OUTSIDE RECORDS SUMMARY | 2024-05-11 07:48 | External Medical Summary | Summary of Care ---
Author Name Unknown Organization [facility] Address [address] [place] [place] [address] Phone [phone] Care Team Providers Care Electrolysis Operator Name Role Phone Murtaza BENTON MD, Williams Payton Primary Care Provider [phone] Reason for Visit * Auth/Cert Specialty Diagnoses / Procedures Referred By Rosie briggs Referred To Contact Diagnoses History of acute pancreatitis Irritable bowel syndrome with constipation History of acute pancreatitis [Z87.19] Irritable bowel syndrome with constipation [K58.1] Procedures ERCP, DIAGNOSTIC, SPECIMEN COLLECTION EGD, W/ENDOSCOPIC US ENDOSCOPIC RETROGRADE CHOLANGIOPANCREATOGRAPHY (ERCP) DIAGNOSTIC ESOPHAGOGASTRODUODENOSCOPY (EGD), FLEXIBLE, TRANSORAL, ENDOSCOPIC ULTRASOUND Ellie Garcia MD [address] [place] [address] Phone: tel: fax: ENDO [facility], Endoscopy Room [facility] [address] [place] [address] Phone: tel: Referral ID Status Reason Start Date Expiration Date Visits Re quested Visits Authorized [id number] Encounter Details Date Type Department Care Team (Latest Contact Info) Description 05/10/2024 10:28 AM EST - 05/10/2024 1:15 PM [facility] Hospital Encounter [facility]O [facility], Endoscopy Room [facility] [address] [place] [phone] Ellie Garcia MD [address] [place] [address] Various: ERCP,UEUS Discharge Disposition: Home - Self Care Allergies Active Allergy Reactions Criticality Noted Date Comments Clindamycin Other (Please comment) 12/21/2014 Burned taste Muscle pain Doxycycline Low 08/22/2020 Other reaction(s): Metallic Taste Penicillins Unknown 10/07/2007 As a child Other reaction(s): UNKNOWN, CHILD ALLERGY documented as of this encounter (statuses as of 05/11/2024) Medications NATURAL SUPPLEMENT Take by mouth daily. Medical marijuana Active Loratadine 10 MG Oral Tablet Take 1 Tablet by mouth in the morning. Active Fluticasone Propionate 50 MCG/ACT Nasal Suspension Administer 1 [place] into nostril in the morning. Active Ondansetron [...] as of this encounter (statuses as of 05/11/2024) Active Problems Problem Noted Date Diagnosed Date [...] as of this encounter (statuses as of 05/11/2024) Resolved Problems Problem Noted Date Diagnosed Date [...] as of this encounter (statuses as of 05/11/2024) Immunizations Name Administration Dates Next Due HPV [...] Sign Reading Time Taken Comments Blood Pressure 118/70 05/10/2024 1:06 PM EST Pulse 81 05/10/2024 1:06 PM EST Temperature 36.3 C (97.4 F) 05/10/2024 1:00 PM ES T Respiratory Rate 13 05/10/2024 1:06 PM EST Oxygen Saturation 98% 05/10/2024 1:06 PM EST Inhaled Oxygen Concentration - - Weight 70.3 kg (155 lb) 05/04/2024 11:10 AM EST Height 160 cm (5' 3") 05/04/2024 11:10 AM EST Body Mass Index 27.46 05/04/2024 11:10 AM EST documented in this encounter H&P Notes * Ellie Garcia MD - 05/10/2024 10:42 AM EST Endoscopy Pre-Procedure Assessment Name: Rosalina Teran Date: 05/10/2024 Time: 10:42 AM Procedure(s): ERCP; with Indication(s) of pancreatic endotherapy Endoscopic Ultrasound; with Indication(s) of evaluation and management of acute or chronic pancreatitis Endoscopy Pre-Procedure Assessment: Prior to the procedure, the patient was identified. The patient's history, medications and allergies were reviewed as per the Anesthesia Assessment. The patient is competent. The risks and benefits of the proposed procedure and the planned sedation were discussed with the patient. All questions were answered and informed consent for the procedure was obtained. Ht 1.6 m (5' 3") | Wt 70.3 kg (155 lb) | BMI 27.46 kg/m | BSA 1.77 m Review of patient's allergies indicates: Allergen Reactions Clindamycin Other (Please comment) Burned taste Muscle pain Penicillins Unknown As a child Other reaction(s): UNKNOWN, CHILD ALLERGY Doxycycline Other reaction(s): Metallic Taste Prior to Admission medications Medication Sig Last Dose Discont. busPIRone HCl 15 MG Oral Tablet (Buspar) TAKE 1 TABLET BY MOUTH EVERY MORNING AND 1 TAB AT BEDTIME 05/09/2024 Linzess 290 MCG Oral Capsule (linaCLOtide) Take 1 Capsule by mouth daily before breakfast. 05/09/2024 Pantoprazole Sodium 40 MG Oral Tablet Delayed Release (Protonix) Take 1 Tablet by mouth in the morning. 05/09/2024 traZODone HCl 100 MG Oral Tablet (Desyrel) TAKE 1 TABLET BY MOUTH EVERYDAY AT BEDTIME 05/09/2024 DULoxetine HCl 60 MG Oral Capsule Delayed Release Particles (Cymbalta) TAKE 1 CAPSULE BY MOUTH EVERY DAY DO NOT CRUSH OR CHEW 05/09/2024 NATURAL SUPPLEMENT Take by mouth daily. Medical marijuana 05/09/2024 Cyclobenzaprine HCl 5 MG Oral Tablet (Flexeril) Take 1 Tablet by mouth 2 times a day as needed for Muscle spasms. Over 30 Days Ondansetron HCl 4 MG Oral Tablet (Zofran) Take 1 Tablet by mouth every 6 hours as needed for Nausea. Over 30 Days Fluticasone Propionate 50 MCG/ACT Nasal Suspension Administer 1 [place] into nostril in the morning. Over 30 Days Loratadine 10 MG Oral Tablet Take 1 Tablet by mouth in the morning. Over 30 Days Physical Exam: Mental Status Examination: alert and oriented. Airway Examination: normal oropharyngeal airway and neck mobility. Respiratory Examination: clear to auscultation. CV Examination: Regular rate and rythm, no murmurs. ASA Grade: II - A patient with mild systemic disease. After reviewing the risks and benefits, the patient was deemed in satisfactory condition to undergothe procedure. The anesthesia plan was to use sedation. Patient was explained in detail regarding risks, benefits, limitations and alternatives of the above endoscopic procedure. Risks of intravenous sedation used for procedure were also explained. Risks include, but not limited to perforation, bleeding, infection, respiratory distress, cardiac arrest and . Risk of acute pancreatitis and necrosis if ERCP is done. Patient is also aware about the possibility of missed lesion. Patient's questions were answered. The patient verbalized understandingthe information and agreed to undergo the procedure. Discussed with the patient that he/she is at an explicit higher risk for complications in comparison to other patients Ellie Garcia MD 05/10/2024 documented in this encounter Procedure Notes * Myranda Mckeon CRNP - 05/10/2024 10:44 AM ESTAssociated Order(s): UPPER ENDOSCOPIC U/S [facility] Patient Name: Rosalina Teran Procedure Date: 05/10/2024 10:44 AM Date of : 1985 Admit Type: Outpatient Note Status: Finalized Date of : 1985 Admit Type: Outpatient Age: 38 Room: Advanced Endo Gender: Female Note Status: Finalized Procedure: Upper EUS Indications: Chronic recurrent pancreatitis Providers: Ellie Garcia MD (Doctor), Lokesh Jay RN Referring MD: Myranda Mckeon (Referring MD), Williams Hauser III, MD (Referring MD) Medicines: Propofol per Anesthesia Complications: No immediate complications. Procedure: Pre-Anesthesia Assessment: - Prior to the procedure, a History and Physical was performed, and patient medications, allergies and sensitivities were reviewed. The patient's tolerance of previous anesthesia was reviewed. - The risks and benefits of the procedure and the sedation options and risks were discussed with the patient. All questions were answered and informed consent was obtained. - Patient identification and proposed procedure were verified prior to the procedure by the physician and the nurse. The procedure was verified in the procedure room. - Pre-procedure physical examination revealed no contraindications to sedation. After obtaining informed consent, the endoscope was passed under direct vision. All instruments were visually inspected immediately before and after removal from the patient to ensure they are fully intact. Throughout the procedure, the patient's blood pressure, pulse, and oxygen saturations were monitored continuously. The Endoscope was introduced through the mouth, and advanced to the second part of duodenum. The [id number]-[id number] Endoscope([id number]) was introduced through the mouth, and advanced to the second part of duodenum. The upper EUS was accomplished without difficulty. The patient tolerated the procedure well. Findings & Specimens: ENDOSCOPIC FINDING: : The examined esophagus was normal. Evidence of a fundoplication was found in the stomach. The wrap appeared intact. This was traversed. The entire examined stomach was normal. The duodenal bulb and second portion of the duodenum were normal. ENDOSONOGRAPHIC FINDING: : There was no sign of significant endosonographic abnormality in the ampulla. There was no sign of significant endosonographic abnormality in the common bile duct. The maximum diameter of the duct was 7 mm. Evidence of a previous cholecystectomy was identified endosonographically. There was no sign of significant endosonographic abnormality in the visualized portion of the liver. Homogeneous parenchyma was identified. Pancreatic parenchymal abnormalities were noted in the entire pancreas. These consisted of hyperechoic strands and hyperechoic foci. Pancreas divisum was visualized. Impression: - Normal esophagus. - A post TIF fundoplication was found. The wrap appears intact. - Normal stomach. - Normal duodenal bulb and second portion of the duodenum. - There was no sign of significant pathology in the ampulla. - There was no sign of significant pathology in the common bile duct. - Evidence of a cholecystectomy. - There was no evidence of significant pathology in the visualized portion of the liver. - Pancreatic parenchymal abnormalities consisting of hyperechoic strands and hyperechoic foci were noted in the entire pancreas. - Pancreas divisum was visualized. - No specimens collected. Recommendation: - Perform an ERCP today. Ellie Garcia MD 05/10/2024 12:05:50 PM This report has been signed electronically. * Myranda Mckeon CRNP - 05/10/2024 10:43 AM ESTAssociated Order(s): ERCP [facility] Patient Name: Rosalina Teran Procedure Date: 05/10/2024 10:43 AM Date of : 1985 Admit Type: Outpatient Note Status: Finalized Date of : 1985 Admit Type: Outpatient Age: 38 Room: Advanced [facility] Gender: Female Note Status: Finalized Procedure: ERCP Indications: For therapy of acute recurrent pancreatitis, Chronic recurrent pancreatitis suspected divisum associated Providers: Ellie Garcia MD (Doctor), Lokesh Jay RN Referring MD: Myranda Mckeon (Referring MD), Williams Hauser III, MD (Referring MD) Medicines: General Anesthesia Complications: No immediate complications. Procedure: Pre-Anesthesia Assessment: - Prior to the procedure, a History and Physical was performed, and patient medications, allergies and sensitivities were reviewed. The patient's tolerance of previous anesthesia was reviewed. - The risks and benefits of the procedure and the sedation options and risks were discussed with the patient. All questions were answered and informed consent was obtained. - Patient identification and proposed procedure were verified prior to the procedure by the physician and the nurse. The procedure was verified in the procedure room. - Pre-procedure physical examination revealed no contraindications to sedation. After obtaining informed consent, the scope was passed under direct vision. All instruments were visually inspected immediately before and after removal from the patient to ensure they are fully intact. Throughout the procedure, the patient's blood pressure, pulse, and oxygen saturations were monitored continuously.The ERCP was accomplished without difficulty. The patient tolerated the procedure well. The was introduced through the mouth, and advanced to the duodenum and used to inject contrast into the bile duct and dorsal pancreatic duct. Findings & Specimens: A dry cleaning machine operator helper film of the abdomen was obtained. Surgical clips, consistent with a previous cholecystectomy, were seen in the area of the right upper quadrant of the abdomen. The esophagus was successfully intubated under direct vision. The scope was advanced to a normal major papilla in the descending duodenum without detailed examination of the pharynx, larynx and associated structures, and upper GI tract. The upper GI tract was grossly normal. A short 0.025 inch Jagwire was passed into the biliary tree. The short-nosed traction sphincterotome was passed over the guidewire and the bile duct was then deeply cannulated. Contrast was injected. I personally interpreted the bile duct images. Ductal flow of contrast was adequate. Image quality was adequate. Contrast extended to the main bile duct. Opacification of the entire biliary tree except for the gallbladder was successful. The maximum diameter of the ducts was 8 mm. Minor Papilla sphincterotomy was made with a monofilament needle knife using a freehand technique using ERBE electrocautery. There was no post- sphincterotomy bleeding. A complete pancreas divisum was identified. Minor papilla was successfully dilated with a 4 mm balloon dilator. One 5 Fr by 9 cm plastic pancreatic stent with a single external pigtail and a single internal flap was placed into the dorsal pancreatic duct. Clear fluid flowed through the stent. The stent was in good position. Indomethacin 100 mg was given via suppository to decrease the risk of post-ERCP pancreatitis (PEP). Impression: - Pancreas divisum was found. A sphincterotomy was performed and then a stent was placed at the minor papilla. Recommendation: - Discharge patient to home. - Repeat ERCP in 3 months to remove stent. - Return to referring physician. Ellie Garcia MD 05/10/2024 12:02:40 PM This report has been signed electronically. documented in this encounter Nursing Notes * Taj Cummings RN - 05/10/2024 1:14 PM EST Patient is alert, pain free, passing flatus and tolerating po fluids prior to discharge. Patient has been visited by Dr. Garcia. Patient has received and demonstrates understanding of discharge instructions. Patient is transported via w/c to private auto accompanied by endo staff. * Taj Cummings RN - 05/10/2024 12:40 PM EST Patient more awake, denies any pain. Position to high backrest, off oxygen offered clear liquid diet. * Taj Cummings RN - 05/10/2024 12:22 PM EST Patient easily arousable, orient to time, place and person. Dr. Garcia made rounds discussed topatient the intra op results. Ordered to re-sched patient after 3 months for stent removal. Will faciliate * Taj Cummings RN - 05/10/2024 12:15 PM EST Patient transferred to post endo s/pENDOSCOPIC RETROGRADE CHOLANGIOPANCREATOGRAPHY (ERCP) DIAGNOSTIC ESOPHAGOGASTRODUODENOSCOPY (EGD), FLEXIBLE, TRANSORAL, ENDOSCOPIC ULTRASOUND with stent . Patient asleep sedated Respirations are even and unlabored on room air. NSR in the 101 on the monitor. Abdomen soft and non distended. Vital signs stable. * Lokesh Jay RN - 05/10/2024 11:58 AM EST See anesthesia record for medication administered during procedure. Lokesh Jay RN Pre cleaning of scope at the bedside started by aviation technician. ERCP performed by Dr Garcia. Major papilla cannulated without difficulty and cholangiogram performed, pancreatic divisum noted. Minor papilla cannulation attempted unable to at first, a small precut made with needle Knife and cannulation was succsessful. Cholangiogram perform, then pancreatic duct dilated with a 4 mm balloon without difficulty. Duct then swept multiple times with a 12 mm balloon. A 5 fr X 9 cm Zimmon pancreatic stent placed without difficulty. Pt tolerated well. Pt placed on stretcher and transported to PACU 1 by anesthesia. * Adri Layne RN - 05/10/2024 10:47 AM EST Pt prepped and ready for anesthesia to assess. Call perez in reach. * Adri Layne RN - 05/10/2024 10:39 AM EST Patient does not meet criteria for testing. Hysterectomy documented in this encounter Plan of Treatment Upcoming Encounters Date Type Department Care Team (Latest Contact Info) Description 05/24/2024 11:00 AM EST Office Visit Gastroenterology , [facility] [address] [place] [address] Myranda Mckeon CRNP [address] [place] [address] 08/18/2024 8:00 AM EDT Hospital Encounter ENDO [facility], Endoscopy Room [facility] [address] [place] [id number] Ellie Garcia MD [address] [place] [address] 08/18/2024 8:00 AM EDT - 08/18/2024 8:45 AM EDT Surgery ENDO [facility], Endoscopy Room [facility] [address] [place] [phone] Ellie Garcia MD [address] [place] [address] ENDOSCOPIC RETROGRADE CHOLANGIOPANCREATOGRAPHY (ERCP) DIAGNOSTIC 11/04/2024 8:40 AM EDT Office Visit [facility] [place] [address] [facility] [place] [address] Williams Hauser III, MD [address] [facility] [place] [address] Scheduled Procedures Name Priority Associated Diagnoses Date/Ti me ENDOSCOPIC RETROGRADE CHOLANGIOPANCREATOGRAPHY (ERCP) DIAGNOSTIC Chronic recurrent [...] this encounter Medical Devices Implanted Type Area Electric Accounting Machine Operator Device Identifier Shelf Expiration Date Model / Serial / Lot Cartridge Esophyx Z+ - [id number] Implanted:Qty: 1 on 04/28/2019 by Ellie Garcia MD at OR [facility] [employer] 11/03/2020 [id number] / / [id number] Description:fasteners 10@11, 10@1, 4@5, 4@7 placed at GE junction (code [id number]) Stent Panc Sgl Pigtail [id number] - [id number] Implanted:Qty: 1 on 05/10/2024 by Ellie Garcia MD at ENDOSCOPY [facility] N/A: Stomach COOK : IMELDA MAYO 09/29/2025 [id number] / / [id number] documented as of this encounter Procedures Procedure Name Priority Date/Time Associated Diagnosis Comments FLUORO ERCP Routine 05/10/2024 11:58 AM EST UPPER ENDOSCOPIC U/S 05/10/2024 10:44 AM EST ERCP 05/10/2024 10:43 AM EST documented in this encounter Results * FLUORO ERCP (05/10/2024 11:58 AM EST) Narrative Scheduling, Silent - 05/10/2024 11:59 AM EST This procedure will not be read by a Radiologist. Please see operative note. us Ellie Garcia MD RAD FLUOROSCOPY Final Resul t * UPPER ENDOSCOPIC U/S (05/10/2024 10:44 AM EST) 05/10/2024 10:4 4 AM EST Narrative Procedure Note Myranda Mckeon CRNP - 05/10/2024 10:44 AM EST [facility] Patient Name: Rosalina Teran Procedure Date: 05/10/2024 10:44 AM Date of : 1985 Admit Type: Outpatient Note Status:Finalized Date of : 1985 Admit Type: Outpatient Age: 38 Room: Advanced Endo Gender: Female Note Status: Finalized Procedure: Upper EUS Indications: Chronic recurrent pancreatitis Providers: Ellie Garcia MD (Doctor), Lokesh Jay RN Referring MD: Myranda Mckeon (Referring MD), Williams Hauser III, MD(Referring MD) Medicines: Propofol per Anesthesia Complications: No immediate complications. Procedure: Pre-Anesthesia Assessment: - Prior to the procedure, a History and Physicalwas performed, and patient medications, allergies and sensitivities werereviewed. The patient's tolerance of previous anesthesia was reviewed. - The risks and benefits of the procedure and thesedation options and risks were discussed with the patient. All questions wereanswered and informed consent was obtained. - Patient identification and proposed procedurewere verified prior to the procedure by the physician and the nurse. The procedure wasverified in the procedure room. - Pre-procedure physical examination revealed nocontraindications to sedation. After obtaining informed consent, the endoscope waspassed under direct vision. All instruments were visually inspected immediatelybefore and after removal from the patient to ensure they are fully intact. Throughout the procedure, the patient's bloodpressure, pulse, and oxygen saturations were monitored continuously. The Endoscope wasintroduced through the mouth, and advanced to the second part of duodenum. TheGIF-H180J Endoscope([id number]) was introduced through the mouth, and advanced to thesecond part of duodenum. The upper EUS was accomplished without difficulty. Thepatient tolerated the procedure well. Findings & Specimens: ENDOSCOPIC FINDING: : The examined esophagus was normal. Evidence of a fundoplication was found in the stomach. The wrapappeared intact. This was traversed. The entire examined stomach was normal. The duodenal bulb and second portion of the duodenum were normal. ENDOSONOGRAPHIC FINDING: : There was no sign of significant endosonographic abnormality in theampulla. There was no sign of significant endosonographic abnormality in thecommon bile duct. The maximum diameter of the duct was 7 mm. Evidence of a previous cholecystectomy was identifiedendosonographically. There was no sign of significant endosonographic abnormality in thevisualized portion of the liver. Homogeneous parenchyma was identified. Pancreatic parenchymal abnormalities were noted in the entirepancreas. These consisted of hyperechoic strands and hyperechoic foci. Pancreas divisum was visualized. Impression: - Normal esophagus. - A post TIF fundoplication was found. The wrapappears intact. - Normal stomach. - Normal duodenal bulb and second portion of theduodenum. - There was no sign of significant pathology in theampulla. - There was no sign of significant pathology in thecommon bile duct. - Evidence of a cholecystectomy. - There was no evidence of significant pathology inthe visualized portion of the liver. - Pancreatic parenchymal abnormalities consistingof hyperechoic strands and hyperechoic foci were noted in the entirepancreas. - Pancreas divisum was visualized. - No specimens collected. Recommendation: - Perform an ERCP today. Ellie Garcia MD 05/10/2024 12:05:50 PM This report has been signed electronically. us Myranda LAMBERT GASTRO UPPER Final R esult * ERCP (05/10/2024 10:43 AM EST) 05/10/2024 10:4 3 AM EST Narrative Procedure Note Myranda Mckeon CRNP - 05/10/2024 10:43 AM EST [facility] Patient Name: Rosalina Teran Procedure Date: 05/10/2024 10:43 AM Date of : 1985 Admit Type: Outpatient Note Status:Finalized Date of : 1985 Admit Type: Outpatient Age: 38 Room: Advanced [facility] Gender: Female Note Status: Finalized Procedure: ERCP Indications: For therapy of acute recurrent pancreatitis,Chronic recurrent pancreatitis suspected divisum associated Providers: Ellie Garcia MD (Doctor), Lokesh Jay RN Referring MD: Myranda Mckeon (Referring MD), Williams Mosley MD (Referring MD) Medicines: General Anesthesia Complications: No immediate complications. Procedure: Pre-Anesthesia Assessment: - Prior to the procedure, a History and Physicalwas performed, and patient medications, allergies and sensitivities werereviewed. The patient's tolerance of previous anesthesia was reviewed. - The risks and benefits of the procedure and thesedation options and risks were discussed with the patient. All questions wereanswered and informed consent was obtained. - Patient identification and proposed procedurewere verified prior to the procedure by the physician and the nurse. The procedure wasverified in the procedure room. - Pre-procedure physical examination revealed nocontraindications to sedation. After obtaining informed consent, the scope waspassed under direct vision. All instruments were visually inspected immediatelybefore and after removal from the patient to ensure they are fully intact. Throughout the procedure, the patient's bloodpressure, pulse, and oxygen saturations were monitored continuously.The ERCP wasaccomplished without difficulty. The patient tolerated the procedure well. The was introducedthrough the mouth, and advanced to the duodenum and used to inject contrast into thebile duct and dorsal pancreatic duct. Findings & Specimens: A dry cleaning machine operator helper film of the abdomen was obtained. Surgical clips, consistentwith a previous cholecystectomy, were seen in the area of the right upper quadrant of the abdomen. Theesophagus was successfully intubated under direct vision. The scope was advanced to a normalmajor papilla in the descending duodenum without detailed examination of the pharynx, larynx andassociated structures, and upper GI tract. The upper GI tract was grossly normal. A short 0.025 inchJagwire was passed into the biliary tree. The short-nosed traction sphincterotome was passed over theguidewire and the bile duct was then deeply cannulated. Contrast was injected. I personally interpretedthe bile duct images. Ductal flow of contrast was adequate. Image quality was adequate. Contrast extendedto the main bile duct. Opacification of the entire biliary tree except for the gallbladderwas successful. The maximum diameter of the ducts was 8 mm. Minor Papilla sphincterotomy was madewith a monofilament needle knife using a freehand technique using ERBE electrocautery. There was nopost- sphincterotomy bleeding. A complete pancreas divisum was identified. Minor papilla wassuccessfully dilated with a 4 mm balloon dilator. One 5 Fr by 9 cm plastic pancreatic stent with a singleexternal pigtail and a single internal flap was placed into the dorsal pancreatic duct. Clear fluid flowedthrough the stent. The stent was in good position. Indomethacin 100 mg was given via suppository todecrease the risk of post-ERCP pancreatitis (PEP). Impression: - Pancreas divisum was found. A sphincterotomy wasperformed and then a stent was placed at the minor papilla. Recommendation: - Discharge patient to home. - Repeat ERCP in 3 months to remove stent. - Return to referring physician. Ellie Garcia MD 05/10/2024 12:02:40 PM This report has been signed electronically. Myranda LAMBERT GASTRO UPPER Final R esult documented in this encounter Visit Diagnoses Diagnosis Pancreatic divisum- Primary Congenital anomalies of pancreas Chronic recurrent pancreatitis (HCC) Chronic pancreatitis documented in this encounter Administered Medications Inactive Administered Medications - up to 3 most recent administrations Medication Order MAR Action Action Date Dose Rate Site dexAMETHasone Sodium Phosphate (Decadron) 4 MG/ML inj 4 mg 4 mg, IV Push, PRN Nausea, Starting on Thu05/10/24 at 1211, Until Thu05/10/24 at 1715, For 1 dose, PROTECT FROM LIGHT, PACU fentaNYL (PF) inj 25 mcg 25 mcg, IV Push, PRN Pain, Severe, Starting on Thu05/10/24 at 1211, Until Thu05/10/24 at 1715, For 6 doses, When given IV Push its recommended that the dose be given over 3 to 5 minutes., PACU Isolyte-S pH 7.4 infusion Intravenous, at 75 mL/hr, for Outpatient patient Plasma-LYTE 148, isolyte-S, and isolyte-S pH 7.4 are considered equivalent - including for MAR barcode scanning., CONTINUOUS, Starting on Thu05/10/24 at 1115, Until Thu05/10/24 at 1715, Pre-Op Continue from Pre-Op 05/10/2024 10:54 AM EST 75 mL/hr New Bag 05/10/2024 10:47 AM EST 75 mL/hr 75 mL/hr ondansetron (Zofran) inj 4 mg 4 mg, IV Push, PRN Nausea, Starting on Thu05/10/24 at 1211, Until Thu05/10/24 at 1715, For 1 dose, PACU documented in this encounter Active and Recently Administered Medications Times are shown in EST. Scheduled Medication Order 05/08/2024 05/09/2024 05/10/2024 Indomethacin (Indocin) 100 mg supp 100 mg, Rectal, ONCE, On Thu05/10/24 at 1115, For 1 dose 1115 (Due) Continuous Medication Order 05/08/2024 05/09/2024 05/10/2024 Isolyte-S pH 7.4 infusion Intravenous, at 75 mL/hr, for Outpatient patient Plasma-LYTE 148, isolyte-S, and isolyte-S pH 7.4 are considered equivalent - including for MAR barcode scanning., CONTINUOUS, Starting on Thu05/10/24 at 1115, Until Thu05/10/24 at 1715, Pre-Op 1047 (New Bag - Prov ider: Adri A Sharer, RN)1054 (Continue from Pre-Op - Provider: Rony Busch CRNA)1209 (Anes Intra-Op Fluid - Provider: Rony Busch CRNA) PRN Medication Order 05/08/2024 05/09/2024 05/10/2024 dexAMETHasone Sodium Phosphate (Decadron) 4 MG/ML inj 4 mg 4 mg, IV Push, PRN Nausea, Starting on Thu05/10/24 at 1211, Until Thu05/10/24 at 1715, For 1 dose, PROTECT FROM LIGHT, PACU fentaNYL (PF) inj 25 mcg 25 mcg, IV Push, PRN Pain, Severe, Starting on Thu05/10/24 at 1211, Until Thu05/10/24 at 1715, For 6 doses, When given IV Push its recommended that the dose be given over 3 to 5 minutes., PACU ondansetron (Zofran) inj 4 mg 4 mg, IV Push, PRN Nausea, Starting on Thu05/10/24 at 1211, Until Thu05/10/24 at 1715, For 1 dose, PACU documented in this encounter Care Teams Electrolysis Operator Relationship Specialty Start Date End Date Williams Hauser III, MD [address] [place] [address] PCP - General Family Medicine 10/27/22 documented as of this encounter
--- OUTSIDE RECORDS SUMMARY | 2024-05-11 07:48 | External Medical Summary | Summary of Care ---
Author Name Unknown Organization [facility] Address [address] [place] [facility] [place] [address] Phone [phone] Care Team Providers Care Computer Tape Librarian Name Role Phone Murtaza BENTON MD, Williams Payton Primary Care Provider [phone] Encounter Details Date Type Department Care Team (Late st Contact Info) Description 05/10/2024 Telephone Gastroenterology, [facility] [address] [place] [phone] Ellie Garcia MD [address] [place] [phone] Allergies Active Allergy Reactions Criticality Noted Date [...] Propionate 50 MCG/ACT Nasal Suspension Administer 1 [place] into nostril in the morning. Active Ondansetron [...] Please schedule repeat ERCP with me at [facility] in 3 months for stent removal. documented in this encounter Plan of Treatment Upcoming Encounters Date Type Department Care Team (Latest Contact Info) Description 05/24/2024 11:00 AM EST Office Visit Gastroenterology , [facility] [address] [place] [phone] Myranda Mckeon CRNP [address] [place] [place] [address] 08/18/2024 8:00 AM EDT Hospital Encounter ENDO [facility], Endoscopy Room [facility] [address] [place], [place] [phone] Ellie Garcia MD [address] [place] [address] 08/18/2024 8:00 AM EDT - 08/18/2024 8:45 AM EDT Surgery ENDO [facility], Endoscopy Room [facility] [address] [place] [phone] Ellie Garcia MD [address] [place] [phone] ENDOSCOPIC RETROGRADE CHOLANGIOPANCREATOGRAPHY (ERCP) DIAGNOSTIC 11/04/2024 8:40 AM EDT Office Visit [facility] [address] [facility] [place] [address] Williams Hauser III, MD [address] [facility] [place] [address] Scheduled Procedures Name Priority Associated Diagnoses Date/Ti [...] this encounter Medical Devices Implanted Type Area Carcass Splitter Device Identifier Shelf Expiration Date Model / Serial / Lot Cartridge Esophyx Z+ - [id number] Implanted:Qty: 1 on 04/28/2019 by Ellie Garcia MD at OR [facility] [employer] 11/03/2020 [id number] / / [id number] Description:fasteners 10@11, 10@1, 4@5, 4@7 placed at GE junction (code [id number]) Stent Panc Sgl Pigtail [id number] - [id number] Implanted:Qty: 1 on 05/10/2024 by Ellie Garcia MD at ENDOSCOPY [facility] N/A: Stomach COOK : IMELDA MAYO 09/29/2025 [id number] / / [id number] documented as of this encounter Care Teams Computer Tape Librarian Relationship Specialty Start Date End Date Williams Hauser III, MD [address] [place] [address] PCP - General Family Medicine 10/27/22 documented as of this encounter
[2024-05-11 08:01] LABS: Basophils # (auto) 0.03 K/uL (0.00-0.20); Basophils % (auto) 0.2 %; Eosinophils # (auto) 0.01 K/uL (0.00-0.50); Eosinophils % (auto) 0.1 %; Hematocrit (blood only) 37.9 % (37.0-47.0); Hemoglobin 12.8 g/dl (12.0-16.0); Immature Granulocytes % (auto) 0.5 %; Lymphocytes # (auto) 0.91 K/uL (1.20-3.40); Lymphocytes % (auto) 4.8 %; Mean Corpuscular Hemoglobin 31.4 pg (25.0-34.0); Mean Corpuscular Hgb Conc 33.8 g/dL (32.0-36.0); Mean Corpuscular Volume 92.9 fL (80.0-100.0); Mean Platelet Volume 8.4 fL (9.4-12.4); Monocytes # (auto) 0.98 K/uL (0.11-0.59); Monocytes % (auto) 5.2 %; Neutrophils # (auto) 16.98 K/uL (1.40-6.50); Neutrophils % (auto) 89.2 %; Platelet Count 302 K/uL (130-400); RDW Coefficient of Variation 12.6 % (11.5-14.5); Red Blood Count 4.08 M/uL (4.20-5.40); White Blood Count 19.01 K/ul (4.8-10.8)
[2024-05-11] MEDS: LINACLOTIDE 145 MCG CAPSULE PO SCH (08:06)
[2024-05-11 08:16] LABS: Albumin Level 3.7 gm/dl (3.4-5.0); Bilirubin Direct 0.1 mg/dl (0-0.2); Bilirubin,Total 0.4 mg/dl (0.2-1.0); Calcium 8.4 mg/dl (8.6-10.3); Creatinine Clr Calc Pharmacy 105.1 ml/min; Magnesium 1.9 mg/dl (1.7-2.4); Potassium 4.8 mmol/L (3.5-5.1); Total Protein 5.7 gm/dl (6.0-8.3)
[2024-05-11] MEDS: busPIRone 15 MG TAB PO SCH (09:30)
[2024-05-11] MEDS: PANTOprazole 40 MG TAB PO SCH (09:30)
[2024-05-11] MEDS: DULoxetine HCL 60 MG CAP PO SCH (09:31)
[2024-05-11] MEDS: ENOXAPARIN INJ 40 MG/0.4 ML SYR SQ SCH (09:31)
--- NOTE | 2024-05-11 10:40 | Gastrointestinal Consultation ---
Date of Consultation May 11, 2024 Assessment & Plan (1) Pancreatitis: -Continue aggressive IV fluid hydration -Continue NPO status for now -Continue with antiemetics and pain medications per primary team -Trend CBC, CMP daily -Supportive care Supervising Physician Co-Signing Physician Notes History of pancreatic divisum. Patient's had 2 bouts of pancreatitis over a few years. Ultimately diagnosed pancreatic divisum underwent an ERCP and pancreatic sphincterotomy with stent placement. Now comes in with an 24 hours of pain consistent with pancreatitis. Imaging and serology are consistent with this. Patient is Richie criteria currently 1 for leukocytosis. Clinically she is this bout is worse than her previous bouts of pancreatitis. She is not vomiting. Not passing any gas. Her kidney functions good. Abdomen nondistended though tender in the epigastrium. Bowel sounds decreased. Post ERCP following pancreatic sphincterotomy. Patient only 1 positive [place] criteria. Should recover quickly. Will continue to follow. Tomorrow could consider diet advancement pending on the clinical situation. History of Present Illness Reason for Consultation: Pancreatitis Requesting Physician: Hospitalist physician Attending Physician: Ramesh Parker MD History of Present Illness Patient is a 38 yo female with history of recurrent pancreatitis who presented to the ED with abdominal pain. On 05/10/24 she underwent an ERCP and pancreatic stent placement at [facility] with Dr. Garcia. She notes that within 7 hours she developed severe abdominal pain and was instructed to come to the hospital. She notes 10/10 pain at the onset that was similar to her previous episodes of pancreatitis. She notes she has a history of pancreatic divisum and had been told that due to the difficulty of yesterday's ERCP that she was at an even higher risk for pancreatitis. I do not have access to [facility] reports to review the events of the procedure. She notes a single episode of vomiting. She reports she has been tested for autoimmune pancreatitis and testing was unremarkable. Upon presentation to the ED she had a Lipase of 657, T bili 0.4, AST 17, ALT 15, Alk phos 47. WBC count >19,000. She had a CT abdomen performed that showed the pancreatic stent and concern for acute pancreatitis in the region of the pancreatic head. At present she notes that her pain is better, but not resolved. She has received IV fluid hydration in the ED and is ordered continuous fluids at this time. Hospitalist team has prn orders for Dilaudid placed. Allergies Allergy/AdvReac Type Severity Reaction Status Date / Time clindamycin Allergy Intermediate muscle Verified 05/10/24 21:42 aches/metal taste in mouth Penicillins Allergy Unknown UNKNOWN, Verified 05/10/24 21:42 CHILD ALLERGY doxycycline AdvReac Mild Metallic Verified 05/10/24 21:42 Taste Home Medications Medication Instructions Recorded Confirmed Type duloxetine 60 mg capsule,delayed 60 mg PO QAM 03/01/19 05/11/24 History release (Cymbalta) fluticasone propionate 50 2 spray intranasal DAILY PRN 08/14/20 05/11/24 History mcg/actuation nasal Allergy Symptoms spray,suspension loratadine 10 mg tablet (Claritin) 10 mg PO QAM PRN Allergic Symptoms 08/14/20 05/11/24 History trazodone 100 mg tablet 100 mg PO HS 06/26/22 05/11/24 History ondansetron 4 mg disintegrating 4 mg PO Q6H PRN nausea and 07/20/23 05/11/24 Rx tablet vomiting #12 tabs buspirone 15 mg tablet 15 mg PO [facility] 05/11/24 05/11/24 History linaclotide 290 mcg capsule 290 mcg PO DAILYBB 05/11/24 05/11/24 History (Linzess) pantoprazole 40 mg tablet,delayed 40 mg PO QAM 05/11/24 05/11/24 History release Patient History Medical History History of stomach ulcers Depression Anxiety Surgical History History of colonoscopy History of hysterectomy with unilateral oophorectomy d/t endometriosis (right removed) History of bilateral tubal ligation History of dilatation and curettage History of esophagogastroduodenoscopy (EGD) History of tooth extraction Family History Mother Family history of reaction to anesthesia SLOW TO WAKE UP Diabetes Lung cancer Father Cerebral aneurysm Social History Smoking Status: Never smoker Second Hand Exposure: No; Do You Dip or Chew Tobacco: No; Hx Alcohol Use: No Hx Substance Use: No Preferred Language: Gibraltarian Communication Ability: Effective Mineral Surveying Technician Required: No Beliefs That Will Affect Care: None marital status: Single Current Living Situation: Spouse Current Living Situation Comment: Lives with fiance and DAUGHTER current occupational status: unemployed and disabled current occupation: HAS NOT WORKED 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 How many Children do You have: 2 Other Information That Helps Us Care for You: No Feels Safe at Home: Yes Safety Concerns: Feels Safe At This Time during the past year weight has: decreased > 10 lbs Assistive Devices: Glasses Review of Systems Constitutional: no fever and no chills Respiratory: no cough and no dyspnea Gastrointestinal: + abdominal pain and + nausea; no vomiti ng (resolved) moved her bowels yesterday Psychiatric: no problem reported Physical Exam Constitutional: well developed Respiratory: normal respiratory effort Cardiovascular: Rate/Rhythm: regular rate Gastrointestinal (Abdomen): tender, hypoactive bowel sounds Psychiatric: Orientation: alert and oriented x 3 Results & Data Vital Signs (Past 12 Hours) Vital Signs Pulse Pulse Resp BP BP Pulse Ox O2 Del Method 05/11/24 07:15 71 05/11/24 06:01 73 16 132/96 94 Room Air 05/11/24 04:36 79 18 94 05/11/24 04:21 70 14 122/69 95 05/11/24 04:09 107 H 14 115/82 97 05/11/24 03:50 67 05/11/24 03:30 67 10 L 132/86 95 05/11/24 03:12 76 15 110/75 97 05/11/24 02:15 74 19 114/71 92 05/11/24 01:30 68 25 H 133/74 95 05/11/24 01:03 82 14 127/75 95 05/11/24 00:36 67 15 126/80 96 05/11/24 00:00 75 15 129/77 96 05/10/24 23:34 88 05/10/24 22:55 83 18 140/94 96 Room Air PG Care Time/CCT Total # of Minutes Spent Total Time Spent with Patient: Total time spent is greater than 50% in coordination of care (as documented) at patient's floor/unit and/or counseling patient: Coding Level of Care Code 02242 IN/OBS CONSULT LVL 4,60M Diagnoses Pancreatitis K85.90 Acute pancreatitis complication: unspecified Chronicity: acute Pancreatitis type: unspecified pancreatitis type (1) Pancreatitis Acute pancreatitis complication: unspecified Chronicity: acute Pancreatitis type: unspecified pancreatitis type Qualified Code(s): K85.90 - Acute pancreatitis without necrosis or infection, unspecified
[2024-05-11] MEDS: ONDANSETRON INJ 2 MG/ML 2 ML VIAL IV PRN (16:25)
[2024-05-11] MEDS: traZODone HCL 100 MG TAB PO SCH (21:42)
[2024-05-12] MEDS: SODIUM CHLORIDE 0.9% 1,000 ML IV SCH (06:23)
[2024-05-12 08:04] LABS: Hematocrit (blood only) 37.8 % (37.0-47.0); Hemoglobin 12.7 g/dl (12.0-16.0); Mean Corpuscular Hemoglobin 31.4 pg (25.0-34.0); Mean Corpuscular Hgb Conc 33.6 g/dL (32.0-36.0); Mean Corpuscular Volume 93.3 fL (80.0-100.0); Mean Platelet Volume 8.7 fL (9.4-12.4); Platelet Count 272 K/uL (130-400); RDW Coefficient of Variation 12.5 % (11.5-14.5); Red Blood Count 4.05 M/uL (4.20-5.40); White Blood Count 14.49 K/ul (4.8-10.8)
--- NOTE | 2024-05-12 08:13 | Hospitalist Progress Note ---
Date of Service May 12, 2024 Assessment & Plan (1) Pancreatitis: Plan: 38-year-old female with past medical history significant for irritable bowel syndrome with constipation, fatty liver, spondylolysis of lumbar and cervical region, major depression, general anxiety disorder, medical marijuana use, history of recurrent pancreatitis, possible pancreatic divisum status post ERCP with pancreatic stent today comes to the ER with severe abdominal pain and nausea and found to have acute pancreatitis. Currently pain is under control. Nausea is improved. Had headache that is improved. Denies sore throat or cough. No fevers. Having chills. Vision is okay. Denies any chest pain. Currently no shortness of breath. Normal bowel and bladder movements. Hemodynamics are okay. Acute pancreatitis History of recurrent pancreatitis Possible pancreatic divisum Status post ERCP and pancreatic stent on 05/10/24 N.p.o. IV normal saline 200 mL/h IV Dilaudid as needed continues to have abdominal pain GI consulted for further recommendations Hypomagnesemia, hypophosphatemia - secondary to pt's npo status - Mag 1.5, phos 1.9 - replace Mag, replace Phos History of irritable bowel syndrome with constipation On Linzess. Depression Generalized anxiety disorder On Cymbalta and trazodone GERD Protonix DVT prophylaxis Lovenox Disposition Medical floor Full code Admission and Anticipated Discharge Date Admission Date: May 11, 2024 Subjective Pt seen in follow up of pancreatitis, had ERCP w/ outpt [facility] Today WBC improved from yesterday, 14K Also lipase down to 300s Pt is laying in bed in NAD, but reports continues to have an abdominal pain no fever, chills, chest pain, shortness of breath. no n/v Review of Systems Review of Systems: All systems reviewed & are unremarkable except as noted in Subjective Physical Exam Physical Exam: General- WD/WN F in NAD Head- NC/AT Eyes- PERRL. Neck- supple, no JVD. Lungs- clear to auscultation no wheezing or crackles Heart- regular rate and rhythm; no murmur, no gallop. Abdomen- normal bowel sounds, soft, diffuse tender, no distension Extremities- no pretibial edema, no erythema seen, moves extremities Neuro- alert, oriented PERRL, EOMI; no facial palsy; no dysarthria; moves extremities Results & Data Results & Data Vital Signs (Past 12 Hours) Vital Signs Temp Pulse Resp BP Pulse Ox O2 Del Method 05/12/24 06:59 36.8 C 99 H 16 111/69 94 Room Air 05/11/24 21:07 36.8 C 85 16 109/72 95 Room Air Laboratory Results 05/12/24 Range/Units 07:27 WBC 14.49 H (4.8-10.8) K/ul RBC 4.05 L (4.20-5.40) M/uL Hgb 12.7 (12.0-16.0) g/dl Hct 37.8 (37.0-47.0) % MCV 93.3 (80.0-100.0) fL MCH 31.4 (25.0-34.0) pg MCHC 33.6 (32.0-36.0) g/dL RDW Std Deviation 43.0 (36.4-46.3) fL RDW Coeff of Leopoldo 12.5 (11.5-14.5) % Plt Count 272 (130-400) K/uL MPV 8.7 L (9.4-12.4) fL Sodium 137 (136-145) mmol/L Potassium 3.9 (3.5-5.1) mmol/L Chloride 106 (98-107) mmol/L Carbon Dioxide 27 (21-32) mmol/L Anion Gap 4 (3-11) BUN 6 (6-23) mg/dl Creatinine 0.66 (0.6-1.2) mg/dl Est Cr Clr Drug Dosing 109.8 ml/min eGFR 114.36 BUN/Creatinine Ratio 9.1 L (10-20) Glucose 84 (70-99(Fasting)) mg/dl Calcium 8.0 L (8.6-10.3) mg/dl Phosphorus 1.9 L (2.5-4.9) mg/dl Magnesium 1.5 L (1.7-2.4) mg/dl Total Bilirubin 0.7 (0.2-1.0) mg/dl AST 49 H (13-39) U/L ALT 49 (7-52) U/L Alkaline Phosphatase 78 (34-104) U/L Total Protein 5.3 L (6.0-8.3) gm/dl Albumin 3.2 L (3.4-5.0) gm/dl Globulin 2.1 L (2.5-4.0) gm/dl Albumin/Globulin Ratio 1.5 (0.9-2) Lipase 328 H (11-82) U/L Medications Administered Current Inpatient Medications Buspirone HCl (Buspirone 15 Mg Tab) 15 mg PO [facility] Stop: 06/10/24 08:59 Last Admin: 05/11/24 21:42 Dose: 15 mg Duloxetine HCl (Duloxetine Hcl 60 Mg Cap) 60 mg PO QAM [facility] Stop: 06/10/24 08:59 Last Admin: 05/11/24 09:31 Dose: 60 mg Enoxaparin Sodium (Enoxaparin Inj 40 Mg/0.4 Ml Syr) 40 mg SQ Q24H [facility] Stop: 06/10/24 08:59 Last Admin: 05/11/24 09:31 Dose: 40 mg Fluticasone Propionate (Fluticasone Propionate Na Spr 16 Gm Btl) 2 sprays NA DAILY PRN PRN Reason: Allergy Symptoms Stop: 06/10/24 05:32 Hydromorphone HCl (Hydromorphone Inj 0.5 Mg/0.5 Ml Syr) 0.5 mg IV Q3H PRN PRN Reason: Mod-Sev Pain (Scale 4-10) Stop: 05/25/24 05:32 Last Admin: 05/12/24 04:43 Dose: 0.5 mg Sodium Chloride (Nss) 1,000 mls @ 200 mls/hr IV .Q5H [facility] Stop: 05/14/24 06:29 Last Admin: 05/12/24 06:23 Dose: 200 mls/hr Linaclotide (Linaclotide 145 Mcg Capsule) 290 mcg PO DAILYBB [facility] Stop: 06/10/24 06:29 Last Admin: 05/12/24 06:06 Dose: 290 mcg Loratadine (Loratadine 10 Mg Tab) 10 mg PO QAM PRN PRN Reason: Allergic Symptoms Stop: 06/10/24 05:32 Ondansetron HCl (Ondansetron Inj 2 Mg/Ml 2 Ml Vial) 4 mg IV Q6H PRN PRN Reason: Nausea Stop: 06/10/24 05:32 Last Admin: 05/11/24 16:25 Dose: 4 mg Pantoprazole Sodium (Pantoprazole 40 Mg Tab) 40 mg PO QAM [facility] Stop: 06/10/24 08:59 Last Admin: 05/11/24 09:30 Dose: 40 mg Trazodone HCl (Trazodone Hcl 100 Mg Tab) 100 mg PO HS [facility] Stop: 06/10/24 20:59 Last Admin: 05/11/24 21:42 Dose: 100 mg (1) Pancreatitis Acute pancreatitis complication: unspecified Chronicity: acute Pancreatitis type: unspecified pancreatitis type Qualified Code(s): K85.90 - Acute pancreatitis without necrosis or infection, unspecified
[2024-05-12 08:25] LABS: Albumin Globulin Ratio 1.5 (0.9-2); Albumin Level 3.2 gm/dl (3.4-5.0); BUN Creatinine Ratio 9.1 (10-20); Bilirubin,Total 0.7 mg/dl (0.2-1.0); Creatinine Clr Calc Pharmacy 109.8 ml/min; Globulin 2.1 gm/dl (2.5-4.0); Magnesium 1.5 mg/dl (1.7-2.4); Phosphorus 1.9 mg/dl (2.5-4.9); Potassium 3.9 mmol/L (3.5-5.1); Total Protein 5.3 gm/dl (6.0-8.3)
[2024-05-12] MEDS ORDERED: POTASSIUM PHOS 3 MMOL/1 ML INFUSION IV STA (10:23)
[2024-05-12] MEDS: MAGNESIUM SULFATE / D5W 1 GM/100 ML BAG IV ONE (10:35)
--- NOTE | 2024-05-12 12:11 | Gastroenterology Progress Note ---
Date of Service May 12, 2024 Assessment & Plan (1) Pancreatitis: Plan: Lipase now 328 from 600s on admission. -IV fluid hydration -Patient currently NPO, will advance to liquids when able, but patient is noting severe pain at present -IV pain meds & antiemetics per primary team -Continue to monitor LFTs, WBC count, temp, kidney function -Low threshold for implementing a bowel regimen Admission and Anticipated Discharge Date Admission Date: May 11, 2024 Supervising Physician Co-Signing Physician Notes Not much change from yesterday. She is passing some gas. Bowel sounds quiet to nonexistent. Tender epigastric area. White count improving. No significant drop in her hematocrit. Kidney function remains good. Clears as tolerated. Subjective Patient is a 38 yo female who presented with post-ERCP pancreatitis. She notes persistent severe abdominal pain today[place] [address]. She is still NPO and does not have desire for food. Review of Systems Gastrointestinal: + abdominal pain Physical Exam Gastrointestinal (Abdomen): Inspection/Auscultation: + hypoactive bowel sounds Percussion/Palpation: + abdomen tender Results & Data Results & Data Vital Signs (Past 12 Hours) Vital Signs Temp Pulse Resp BP Pulse Ox O2 Del Method 05/12/24 06:59 36.8 C 99 H 16 111/69 94 Room Air PG Care Time/CCT Total # of Minutes Spent Total Time Spent with Patient: Total time spent is greater than 50% in coordination of care (as documented) at patient's floor/unit and/or counseling patient: Coding Level of Care Code 97477 SUB INP/OBS CARE 3/50MIN Diagnoses Pancreatitis K85.90 Acute pancreatitis complication: no infection or necrosis Chronicity: acute Pancreatitis type: unspecified pancreatitis type (1) Pancreatitis Acute pancreatitis complication: no infection or necrosis Chronicity: acute Pancreatitis type: unspecified pancreatitis type Qualified Code(s): K85.90 - Acute pancreatitis without necrosis or infection, unspecified
[2024-05-12] MEDS: POTASSIUM PHOSPHATE 9 MMOL in SODIUM CHLORIDE 0.9% 250 ML IV ONE (12:27)
--- NOTE | 2024-05-13 09:08 | Hospitalist Progress Note ---
Date of Service May 13, 2024 Assessment & Plan (1) Pancreatitis: Plan: 38-year-old female with past medical history significant for irritable bowel syndrome with constipation, fatty liver, spondylolysis of lumbar and cervical region, major depression, general anxiety disorder, medical marijuana use, history of recurrent pancreatitis, possible pancreatic divisum status post ERCP with pancreatic stent today comes to the ER with severe abdominal pain and nausea and found to have acute pancreatitis. Currently pain is under control. Nausea is improved. Had headache that is improved. Denies sore throat or cough. No fevers. Having chills. Vision is okay. Denies any chest pain. Currently no shortness of breath. Normal bowel and bladder movements. Hemodynamics are okay. Acute pancreatitis History of recurrent pancreatitis Possible pancreatic divisum Status post ERCP and pancreatic stent on 05/10/24 N.p.o. -> clear liquids IV normal saline 200 mL/h IV Dilaudid as needed continues to have abdominal pain GI consulted for further recommendations Hypomagnesemia, hypophosphatemia - secondary to pt's npo status - Mag 1.6, phos 1.8 today - replace Mag, replace Phos - cont. to monitor, levels ordered for AM History of irritable bowel syndrome with constipation On Linzess. Depression Generalized anxiety disorder On Cymbalta and trazodone GERD Protonix DVT prophylaxis Lovenox Disposition Medical floor Full code Admission and Anticipated Discharge Date Admission Date: May 11, 2024 Subjective Pt seen in follow up of pancreatitis, had ERCP w/ outpt [facility] WBC improved down to 12K today Also lipase down to 300s Pt is laying in bed in NAD, but reports continues to have an abdominal pain. Was able to have some liquids. no fever, chills, chest pain, shortness of breath. no n/v Review of Systems Review of Systems: All systems reviewed & are unremarkable except as noted in Subjective Physical Exam Physical Exam: General- WD/WN F in NAD Head- NC/AT Eyes- PERRL. Neck- supple, no JVD. Lungs- clear to auscultation no wheezing or crackles Heart- regular rate and rhythm; no murmur, no gallop. Abdomen- normal bowel sounds, soft, diffuse tender, no distension Extremities- no pretibial edema, no erythema seen, moves extremities Neuro- alert, oriented PERRL, EOMI; no facial palsy; no dysarthria; moves extremities Results & Data Results & Data Vital Signs (Past 12 Hours) Vital Signs Temp Pulse Resp BP Pulse Ox O2 Del Method 05/13/24 07:01 36.8 C 94 H 17 113/78 94 Room Air Laboratory Results 05/13/24 Range/Units 08:20 WBC 12.04 H (4.8-10.8) K/ul RBC 3.88 L (4.20-5.40) M/uL Hgb 12.2 (12.0-16.0) g/dl Hct 36.1 L (37.0-47.0) % MCV 93.0 (80.0-100.0) fL MCH 31.4 (25.0-34.0) pg MCHC 33.8 (32.0-36.0) g/dL RDW Std Deviation 42.6 (36.4-46.3) fL RDW Coeff of Leopoldo 12.4 (11.5-14.5) % Plt Count 262 (130-400) K/uL MPV 8.8 L (9.4-12.4) fL Sodium 137 (136-145) mmol/L Potassium 3.4 L (3.5-5.1) mmol/L Chloride 107 (98-107) mmol/L Carbon Dioxide 24 (21-32) mmol/L Anion Gap 6 (3-11) BUN 5 L (6-23) mg/dl Creatinine 0.58 L (0.6-1.2) mg/dl Est Cr Clr Drug Dosing 125.0 ml/min eGFR 117.98 BUN/Creatinine Ratio 8.6 L (10-20) Glucose 74 (70-99(Fasting)) mg/dl Calcium 8.0 L (8.6-10.3) mg/dl Phosphorus 1.8 L (2.5-4.9) mg/dl Magnesium 1.6 L (1.7-2.4) mg/dl Total Bilirubin 0.6 (0.2-1.0) mg/dl AST 27 (13-39) U/L ALT 47 (7-52) U/L Alkaline Phosphatase 113 H (34-104) U/L Total Protein 5.6 L (6.0-8.3) gm/dl Albumin 3.2 L (3.4-5.0) gm/dl Globulin 2.4 L (2.5-4.0) gm/dl Albumin/Globulin Ratio 1.3 (0.9-2) Medications Administered Current Inpatient Medications Buspirone HCl (Buspirone 15 Mg Tab) 15 mg PO AMHS [facility] Stop: 06/10/24 08:59 Last Admin: 05/13/24 08:31 Dose: 15 mg Duloxetine HCl (Duloxetine Hcl 60 Mg Cap) 60 mg PO QAM [facility] Stop: 06/10/24 08:59 Last Admin: 05/13/24 08:31 Dose: 60 mg Enoxaparin Sodium (Enoxaparin Inj 40 Mg/0.4 Ml Syr) 40 mg SQ Q24H [facility] Stop: 06/10/24 08:59 Last Admin: 05/13/24 08:31 Dose: 40 mg Fluticasone Propionate (Fluticasone Propionate Na Spr 16 Gm Btl) 2 sprays NA DAILY PRN PRN Reason: Allergy Symptoms Stop: 06/10/24 05:32 Hydromorphone HCl (Hydromorphone Inj 0.5 Mg/0.5 Ml Syr) 0.5 mg IV Q3H PRN PRN Reason: Mod-Sev Pain (Scale 4-10) Stop: 05/25/24 05:32 Last Admin: 05/13/24 07:33 Dose: 0.5 mg Sodium Chloride (Nss) 1,000 mls @ 200 mls/hr IV .Q5H [facility] Stop: 05/14/24 06:29 Last Admin: 05/13/24 08:30 Dose: 200 mls/hr Linaclotide (Linaclotide 145 Mcg Capsule) 290 mcg PO DAILYBB [facility] Stop: 06/10/24 06:29 Last Admin: 05/13/24 06:01 Dose: 290 mcg Loratadine (Loratadine 10 Mg Tab) 10 mg PO QAM PRN PRN Reason: Allergic Symptoms Stop: 06/10/24 05:32 Ondansetron HCl (Ondansetron Inj 2 Mg/Ml 2 Ml Vial) 4 mg IV Q6H PRN PRN Reason: Nausea Stop: 06/10/24 05:32 Last Admin: 05/12/24 08:27 Dose: 4 mg Pantoprazole Sodium (Pantoprazole 40 Mg Tab) 40 mg PO QAM [facility] Stop: 06/10/24 08:59 Last Admin: 05/13/24 08:31 Dose: 40 mg Trazodone HCl (Trazodone Hcl 100 Mg Tab) 100 mg PO HS [facility] Stop: 06/10/24 20:59 Last Admin: 05/12/24 20:51 Dose: 100 mg (1) Pancreatitis Acute pancreatitis complication: unspecified Chronicity: acute Pancreatitis type: unspecified pancreatitis type Qualified Code(s): K85.90 - Acute pancreatitis without necrosis or infection, unspecified
[2024-05-13 09:14] LABS: Hematocrit (blood only) 36.1 % (37.0-47.0); Hemoglobin 12.2 g/dl (12.0-16.0); Mean Corpuscular Hemoglobin 31.4 pg (25.0-34.0); Mean Corpuscular Hgb Conc 33.8 g/dL (32.0-36.0); Mean Platelet Volume 8.8 fL (9.4-12.4); Platelet Count 262 K/uL (130-400); RDW Coefficient of Variation 12.4 % (11.5-14.5); RDW Standard Deviation 42.6 fL (36.4-46.3); Red Blood Count 3.88 M/uL (4.20-5.40); White Blood Count 12.04 K/ul (4.8-10.8)
[2024-05-13 09:27] LABS: Albumin Globulin Ratio 1.3 (0.9-2); Albumin Level 3.2 gm/dl (3.4-5.0); BUN Creatinine Ratio 8.6 (10-20); Bilirubin,Total 0.6 mg/dl (0.2-1.0); Globulin 2.4 gm/dl (2.5-4.0); Magnesium 1.6 mg/dl (1.7-2.4); Phosphorus 1.8 mg/dl (2.5-4.9); Potassium 3.4 mmol/L (3.5-5.1); Total Protein 5.6 gm/dl (6.0-8.3)
[2024-05-13] MEDS ORDERED: POTASSIUM PHOS 3 MMOL/1 ML INFUSION IV STA (10:03)
[2024-05-13] MEDS: POTASSIUM CHLORIDE CRTAB 20 MEQ TABCR PO STA (10:36)
[2024-05-13] MEDS: MAGNESIUM OXIDE 400 MG TAB PO SCH (10:36)
[2024-05-13] MEDS: POTASSIUM PHOSPHATE 9 MMOL in SODIUM CHLORIDE 0.9% 250 ML IV ONE (11:30)
--- NOTE | 2024-05-13 13:54 | Gastroenterology Progress Note ---
Date of Service May 13, 2024 Assessment & Plan (1) Pancreatitis: Plan: Patient is improving. She is receiving IV pain medication, fluids, and is taking liquids by mouth without worsening of her pain. Hopefully she will soon be able to advance her diet. She will follow-up with Dr. Garcia upon discharge. Admission and Anticipated Discharge Date Admission Date: May 11, 2024 Supervising Physician Co-Signing Physician Notes 38-year-old female. Post ERCP and pancreatic sphincterotomy with stent pl acement. Postop pancreatitis. Today there is signs of improvement. She has had a bowel movement. Her pain is reduced 15+ percent. She is tolerating p.o. Likely discharge tomorrow. Follow-up with treating special education aide. Subjective Patient is a 38 yo female with post-ERCP pancreatitis. She notes pain is a 5/10 today. She was able to tolerate her lunch (liquids). She is moving her bowels. WBC improving to 12,040. H/H 12.2/36.1. T bili 0.6, AST 27, ALT 47. Review of Systems Gastrointestinal: + abdominal pain; no constipation Physical Exam Gastrointestinal (Abdomen): Inspection/Auscultation: abdomen normal to inspection and normal bowel sounds Percussion/Palpation: + abdomen tender and abdomen soft Results & Data Results & Data Vital Signs (Past 12 Hours) Vital Signs Temp Pulse Resp BP Pulse Ox O2 Del Method 05/13/24 07:01 36.8 C 94 H 17 113/78 94 Room Air PG Care Time/CCT Total # of Minutes Spent Total Time Spent with Patient: Total time spent is greater than 50% in coordination of care (as documented) at patient's floor/unit and/or counseling patient: Coding Level of Care Code 60689 SUB INP/OBS CARE 2/35MIN Diagnoses Pancreatitis K85.90 Acute pancreatitis complication: unspecified Chronicity: acute Pancreatitis type: unspecified pancreatitis type (1) Pancreatitis Acute pancreatitis complication: unspecified Chronicity: acute Pancreatitis type: unspecified pancreatitis type Qualified Code(s): K85.90 - Acute pancreatitis without necrosis or infection, unspecified
[2024-05-14 08:02] LABS: Hemoglobin 11.4 g/dl (12.0-16.0); Mean Corpuscular Hemoglobin 31.1 pg (25.0-34.0); Mean Corpuscular Hgb Conc 33.5 g/dL (32.0-36.0); Mean Corpuscular Volume 92.6 fL (80.0-100.0); Mean Platelet Volume 8.7 fL (9.4-12.4); Platelet Count 243 K/uL (130-400); RDW Coefficient of Variation 12.4 % (11.5-14.5); RDW Standard Deviation 42.1 fL (36.4-46.3); Red Blood Count 3.67 M/uL (4.20-5.40); White Blood Count 9.87 K/ul (4.8-10.8)
[2024-05-14 08:17] LABS: Albumin Globulin Ratio 1.3 (0.9-2); Albumin Level 3.1 gm/dl (3.4-5.0); BUN Creatinine Ratio 6.5 (10-20); Bilirubin,Total 0.4 mg/dl (0.2-1.0); Calcium 8.2 mg/dl (8.6-10.3); Creatinine Clr Calc Pharmacy 116.9 ml/min; Globulin 2.4 gm/dl (2.5-4.0); Magnesium 1.5 mg/dl (1.7-2.4); Phosphorus 2.5 mg/dl (2.5-4.9); Potassium 3.4 mmol/L (3.5-5.1); Total Protein 5.5 gm/dl (6.0-8.3)
[2024-05-14] MEDS: POTASSIUM CHLORIDE CRTAB 20 MEQ TABCR PO STA (11:34)
[2024-05-14] MEDS: MAGNESIUM SULFATE / D5W 1 GM/100 ML BAG IV ONE (11:38)
--- NOTE | 2024-05-14 11:53 | Hospitalist Progress Note ---
Date of Service May 14, 2024 Assessment & Plan (1) Pancreatitis: Plan: 38-year-old female with past medical history significant for irritable bowel syndrome with constipation, fatty liver, spondylolysis of lumbar and cervical region, major depression, general anxiety disorder, medical marijuana use, history of recurrent pancreatitis, possible pancreatic divisum status post ERCP with pancreatic stent today comes to the ER with severe abdominal pain and nausea and found to have acute pancreatitis. Currently pain is under control. Nausea is improved. Had headache that is improved. Denies sore throat or cough. No fevers. Having chills. Vision is okay. Denies any chest pain. Currently no shortness of breath. Normal bowel and bladder movements. Hemodynamics are okay. Acute pancreatitis History of recurrent pancreatitis Possible pancreatic divisum Status post ERCP and pancreatic stent on 05/10/24 N.p.o. -> clear liquids -> full liquids IV normal saline 200 mL/h -> 150 IV Dilaudid as needed -> PO oxycodone continues to have abdominal pain but now improved GI consulted for further recommendations Hypomagnesemia, hypophosphatemia - secondary to pt's poor oral intake - replace and monitor History of irritable bowel syndrome with constipation On Linzess. Depression Generalized anxiety disorder On Cymbalta and trazodone GERD Protonix DVT prophylaxis Lovenox Disposition Medical floor Full code Admission and Anticipated Discharge Date Admission Date: May 11, 2024 Subjective Pt seen in follow up of pancreatitis, had ERCP w/ outpt [facility] WBC now normalized Pt is feeling improved, less painful Tolerating clear liquid diet, will advance to full liquid Pt is laying in bed in NAD no fever, chills, chest pain, shortness of breath. no n/v Review of Systems 2 Review of Systems: All systems reviewed & are unremarkable except as noted in Subjective Physical Exam Physical Exam: General- WD/WN F in NAD Head- NC/AT Eyes- PERRL. Neck- supple, no JVD. Lungs- clear to auscultation no wheezing or crackles Heart- regular rate and rhythm; no murmur, no gallop. Abdomen- normal bowel sounds, soft, diffuse tender but much improved, no distension Extremities- no pretibial edema, no erythema seen, moves extremities Neuro- alert, oriented PERRL, EOMI; no facial palsy; no dysarthria; moves extremities Results & Data Results & Data Vital Signs (Past 12 Hours) Vital Signs Temp Pulse Resp BP Pulse Ox O2 Del Method 05/14/24 07:47 36.7 C 83 19 120/69 95 Room Air Laboratory Results 05/14/24 Range/Units 07:11 WBC 9.87 (4.8-10.8) K/ul RBC 3.67 L (4.20-5.40) M/uL Hgb 11.4 L (12.0-16.0) g/dl Hct 34.0 L (37.0-47.0) % MCV 92.6 (80.0-100.0) fL MCH 31.1 (25.0-34.0) pg MCHC 33.5 (32.0-36.0) g/dL RDW Std Deviation 42.1 (36.4-46.3) fL RDW Coeff of Leopoldo 12.4 (11.5-14.5) % Plt Count 243 (130-400) K/uL MPV 8.7 L (9.4-12.4) fL Sodium 140 (136-145) mmol/L Potassium 3.4 L (3.5-5.1) mmol/L Chloride 108 H (98-107) mmol/L Carbon Dioxide 27 (21-32) mmol/L Anion Gap 5 (3-11) BUN 4 L (6-23) mg/dl Creatinine 0.62 (0.6-1.2) mg/dl Est Cr Clr Drug Dosing 116.9 ml/min eGFR 116.10 BUN/Creatinine Ratio 6.5 L (10-20) Glucose 77 (70-99(Fasting)) mg/dl Calcium 8.2 L (8.6-10.3) mg/dl Phosphorus 2.5 (2.5-4.9) mg/dl Magnesium 1.5 L (1.7-2.4) mg/dl Total Bilirubin 0.4 (0.2-1.0) mg/dl AST 13 (13-39) U/L ALT 30 (7-52) U/L Alkaline Phosphatase 94 (34-104) U/L Total Protein 5.5 L (6.0-8.3) gm/dl Albumin 3.1 L (3.4-5.0) gm/dl Globulin 2.4 L (2.5-4.0) gm/dl Albumin/Globulin Ratio 1.3 (0.9-2) Medications Administered Current Inpatient Medications Buspirone HCl (Buspirone 15 Mg Tab) 15 mg PO AMHS [facility] Stop: 06/10/24 08:59 Last Admin: 05/14/24 08:30 Dose: 15 mg Duloxetine HCl (Duloxetine Hcl 60 Mg Cap) 60 mg PO QAM [facility] Stop: 06/10/24 08:59 Last Admin: 05/14/24 08:30 Dose: 60 mg Enoxaparin Sodium (Enoxaparin Inj 40 Mg/0.4 Ml Syr) 40 mg SQ Q24H [facility] Stop: 06/10/24 08:59 Last Admin: 05/14/24 08:31 Dose: 40 mg Fluticasone Propionate (Fluticasone Propionate Na Spr 16 Gm Btl) 2 sprays NA DAILY PRN PRN Reason: Allergy Symptoms Stop: 06/10/24 05:32 Hydromorphone HCl (Hydromorphone Inj 0.5 Mg/0.5 Ml Syr) 0.5 mg IV Q3H PRN PRN Reason: Mod-Sev Pain (Scale 4-10) Stop: 05/25/24 05:32 Last Admin: 05/14/24 11:33 Dose: 0.5 mg Magnesium Sulfate/Dextrose (Magnesium Sulfate / D5w) 1 gm in 100 mls @ 50 mls/hr IV ONE ONE Stop: 05/14/24 13:14 Last Admin: 05/14/24 11:38 Dose: 50 mls/hr Linaclotide (Linaclotide 145 Mcg Capsule) 290 mcg PO DAILYBB [facility] Stop: 06/10/24 06:29 Last Admin: 05/14/24 06:17 Dose: Not Given Loratadine (Loratadine 10 Mg Tab) 10 mg PO QAM PRN PRN Reason: Allergic Symptoms Stop: 06/10/24 05:32 Magnesium Oxide (Magnesium Oxide 400 Mg Tab) 400 mg PO QAM [facility] Stop: 06/12/24 10:14 Last Admin: 05/14/24 08:31 Dose: 400 mg Ondansetron HCl (Ondansetron Inj 2 Mg/Ml 2 Ml Vial) 4 mg IV Q6H PRN PRN Reason: Nausea Stop: 06/10/24 05:32 Last Admin: 05/13/24 20:20 Dose: 4 mg Pantoprazole Sodium (Pantoprazole 40 Mg Tab) 40 mg PO QAM [facility] Stop: 06/10/24 08:59 Last Admin: 05/14/24 08:31 Dose: 40 mg Trazodone HCl (Trazodone Hcl 100 Mg Tab) 100 mg PO HS [facility] Stop: 06/10/24 20:59 Last Admin: 05/13/24 20:20 Dose: 100 mg (1) Pancreatitis Acute pancreatitis complication: unspecified Chronicity: acute Pancreatitis type: unspecified pancreatitis type Qualified Code(s): K85.90 - Acute pancreatitis without necrosis or infection, unspecified
--- NOTE | 2024-05-14 12:35 | Gastroenterology Progress Note ---
Date of Service May 14, 2024 Assessment & Plan (1) Post-ERCP acute pancreatitis: Plan: Resolving, only tolerating diet. GI signed off reconsult. (2) Pancreatic divisum: Admission and Anticipated Discharge Date Admission Date: May 11, 2024 Subjective Post ERCP pancreatitis Patient with a history recurrent pancreatitis felt to be related to pancreatic divisum. She underwent an ERCP for pancreatic sphincterotomy and stent placement. She did suffer pancreatitis post. This is not uncommon in this procedure may run 10 to 15% Patient's symptoms have settled with pain control bowel rest and IV fluids. She will attempt a full diet today with potential discharge tomorrow. She should follow-up with her treating process improvement consultant. Pancreatic stent usually require removal within the 3-month period. Patient should avoid smoking and alcohol. Physical Exam Physical Exam: Sitting up looks much improved. Less pain. Tolerating p.o. Abdomen less tender and benign Results & Data Results & Data Vital Signs (Past 12 Hours) Vital Signs Temp Pulse Resp BP Pulse Ox O2 Del Method 05/14/24 07:47 36.7 C 83 19 120/69 95 Room Air PG Care Time/CCT Total # of Minutes Spent Total Time Spent with Patient: Total time spent is greater than 50% in coordination of care (as documented) at patient's floor/unit and/or counseling patient: Coding Level of Care Code 52075 SUB INP/OBS CARE 04/23MIN Diagnoses Post-ERCP acute pancreatitis K91.89; K85.90 Pancreatic divisum Q45.3
[2024-05-14] MEDS: oxyCODONE HCL IR 5 MG TAB (IMMEDIATE RELEASE) PO PRN (15:31)
[2024-05-15 07:48] LABS: Hematocrit (blood only) 37.5 % (37.0-47.0); Hemoglobin 12.8 g/dl (12.0-16.0); Mean Corpuscular Hemoglobin 31.4 pg (25.0-34.0); Mean Corpuscular Hgb Conc 34.1 g/dL (32.0-36.0); Mean Corpuscular Volume 92.1 fL (80.0-100.0); Mean Platelet Volume 8.5 fL (9.4-12.4); Platelet Count 343 K/uL (130-400); RDW Coefficient of Variation 12.4 % (11.5-14.5); Red Blood Count 4.07 M/uL (4.20-5.40); White Blood Count 8.77 K/ul (4.8-10.8)
[2024-05-15 07:59] VITALS: RESP 18; TEMP 98.6; O2SAT 97
[2024-05-15 08:19] LABS: BUN Creatinine Ratio 5.6 (10-20); Calcium 9.2 mg/dl (8.6-10.3); Creatinine Clr Calc Pharmacy 102.1 ml/min; Magnesium 1.7 mg/dl (1.7-2.4); Potassium 3.9 mmol/L (3.5-5.1)
[2024-05-15 08:46] VITALS: PULSE 97
--- NOTE | 2024-05-15 10:10 | Discharge Summary ---
Date of Service May 15, 2024 Admission HPI Per Admitting Provider 38-year-old female with past medical history significant for irritable bowel syndrome with constipation, fatty liver, spondylolysis of lumbar and cervical region, major depression, general anxiety disorder, medical marijuana use, history of recurrent pancreatitis, possible pancreatic divisum status post ERCP with pancreatic stent today comes to the ER with severe abdominal pain and nausea and found to have acute pancreatitis. Currently pain is under control. Nausea is improved. Had headache that is improved. Denies sore throat or cough. No fevers. But having chills.Vision is okay. Denies any chest pain. Currently no shortness of breath. Normal bowel and bladder movements. Hemodynamics are okay. Past medical history. As mentioned above Past surgical history. Colonoscopy and EGD. EGD with endoscopic ultrasound. Endometrial ablation. Laparoscopy hysterectomy. Laparoscopic cholecystectomy. Ligation of oviducts. Family history.. Paternal grand father had alcoholism. Father from brain aneurysm. Mother had thyroid disorder. Social history. Quit smoking in 2014. Prior to that smoked 1 pack a day for 10 years. No alcohol use currently. Medical marijuana daily. Admission Exam Per Admitting Provider General- not in distress. Head- atraumatic Eyes- PERRL. ENT- oropharynx clear Neck- supple, no JVD. Lungs- clear to auscultation no wheezing or crackles Heart- regular rate and rhythm; no murmur, no gallop. Abdomen- normal bowel sounds, soft, diffuse tender, no distension Extremities- no pretibial edema, no erythema seen Neuro- alert, oriented PERRL, EOMI; no facial palsy; no dysarthria; moves extremities Principal Diagnosis Acute pancreatitis s/p ERCP Discharge Exam General- WD/WN F in NAD Head- NC/AT Eyes- PERRL. Neck- supple, no JVD. Lungs- clear to auscultation no wheezing or crackles Heart- regular rate and rhythm; no murmur Abdomen- normal bowel sounds, soft, mildly tender but much improved, no distension Extremities- no pretibial edema, no erythema seen, moves extremities Neuro- alert, oriented PERRL, EOMI; no facial palsy; no dysarthria; moves extremities Discharge Data Allergies Allergy/AdvReac Type Severity Reaction Status Date / Time clindamycin Allergy Intermediate muscle Verified 05/10/24 21:42 aches/metal taste in mouth Penicillins Allergy Unknown UNKNOWN, Verified 05/10/24 21:42 CHILD ALLERGY doxycycline AdvReac Mild Metallic Verified 05/10/24 21:42 Taste Consultations 05/10/24 23:58 ED Decision to Admit Stat 05/11/24 08:00 Consult Gastroenterology Routine Ordered Studies 05/10/24 23:03 CT abd pelvis IV con only Stat FINDINGS: Lung bases: No consolidation. ABDOMEN: Liver: No mass. Gallbladder and bile ducts: The gallbladder is not visualized. No ductal dilation. Pancreas: A pancreatic stent is noted. There are some slight inflammatory changes surrounding the pancreatic head.. Spleen: No splenomegaly. Adrenals: No mass. Kidneys and ureters: No solid mass. No hydronephrosis. Stomach and bowel: The stomach is distended containing fluid and air. There is air and stool noted in the colon.. PELVIS: Appendix: Unremarkable CT scan appearance noted the appendix.. Bladder: No calculi are noted within the bladder.. Reproductive: The patient appears to be status post hysterectomy.. ABDOMEN and PELVIS: Intraperitoneal space: No free air. There is some free fluid noted in the pelvis. Bones/joints: There are some degenerative changes in the spine.. Soft tissues: Unremarkable. Vasculature: No abdominal aortic aneurysm. Lymph nodes: No enlarged lymph nodes. IMPRESSION: A pancreatic stent is noted. There are some slight inflammatory changes surrounding the pancreatic head.. This may represent acute pancreatitis. The gallbladder is not visualized and may be surgically absent. There is some free fluid noted in the pelvis. Hospital Course (1) Pancreatitis: 38-year-old female with past medical history significant for irritable bowel syndrome with constipation, fatty liver, spondylolysis of lumbar and cervical region, major depression, general anxiety disorder, medical marijuana use, history of recurrent pancreatitis, possible pancreatic divisum status post ERCP with pancreatic stent today comes to the ER with severe abdominal pain and nause a and found to have acute pancreatitis. Currently pain is under control. Nausea is improved. Had headache that is improved. Denies sore throat or cough. No fevers. Having chills. Vision is okay. Denies any chest pain. Currently no shortness of breath. Normal bowel and bladder movements. Hemodynamics are okay. Acute pancreatitis History of recurrent pancreatitis Possible pancreatic divisum Status post ERCP and pancreatic stent on 05/10/24 received IVF now on full liquid diet and tolerating IV Dilaudid as needed -> PO oxycodone GI was consulted while inpt continues to have abdominal pain but now improved Hypomagnesemia, hypophosphatemia - secondary to pt's poor oral intake - replace and monitor History of irritable bowel syndrome with constipation On Linzess. Depression Generalized anxiety disorder On Cymbalta and trazodone GERD Protonix Total Time Total Time Spent Total Time Spent (In Minutes): 40 Discharge Plan Discharge Items Patient Disposition: Home - Self-Care Reason For Visit: ACUTE PANCREATITIS Discharge Diagnosis: Acute pancreatitis s/p ERCP Activity: Per Instructions section Non-emergency contact: Primary Care Provider and Stockholder Call non-emergency contact if: you have any medication questions and your symp toms worsen Follow-up/Referrals: Williams Hauser MD [Primary Care Provider] - (Date & Time 05/19/2024 11:00 AM Provider: Williams Hauser III, MD [facility] ) Diet: Full liquid Addtl Attending Provider Instructions: Follow up with your primary care doctor and marketing forecaster. Make sure to stay well hydrated. Advance your diet slowly as tolerated. Pending Studies at Discharge: No Stand-Alone Forms: My [facility], Smoking Cessation Medications and DC Order Prescriptions: New oxycodone 5 mg Tablet 5 mg PO Q4H PRN (Reason: pain) Qty: 7 0RF Continued duloxetine [Cymbalta] 60 mg Capsule,Delayed Release(Dr/Ec) 60 mg PO QAM trazodone 100 mg tablet 100 mg PO HS fluticasone propionate 50 mcg/actuation [place],Suspension 2 spray INTRANASAL DAILY PRN (Reason: Allergy Symptoms) Rx Instructions: as needed loratadine [Claritin] 10 mg Tablet 10 mg PO QAM PRN (Reason: Allergic Symptoms) buspirone 15 mg tablet 15 mg PO AMHS Linzess 290 mcg capsule 290 mcg PO DAILYBB pantoprazole 40 mg tablet,delayed release (DR/EC) 40 mg PO QAM ondansetron 4 mg tablet,disintegrating 4 mg PO Q6H PRN (Reason: nausea and vomiting) Qty: 12 0RF Discharge Orders: Discharge Order (Routine); Ordered 05/15/24 Ordered By: Ramesh Parker Admission Data Admit Date/Time: 05/11/24 04:33 Attending Provider: Ramesh Parkerit Provider: Florencio Bell Primary Care Provider: Williams Hauser Other Providers: Florencio Bell; Gamaliel Wolff
[2024-05-15 10:49] VITALS: BP 147/89
== END 2024-05-15 11:25 | disposition home or self-care (01) | DRG 393 ==
LOC: ED 21:31 → EDINP 05-11 04:33 → 3N 05-11 13:53

== ENCOUNTER 2024-05-17 18:06 | Inpatient (IN) ==
--- NOTE | 2024-05-17 18:41 | Emergency Department Note ---
Impression & Plan Pancreatitis, Abdominal pain ED Provider Note NAME: BRYAN CARRANZA AGE: 38 SEX: F : 1985 ARRIVES VIA: Walk-In INFORMANT: Patient, ED PROVIDER(S): Jimenez Vásquez MD CHIEF COMPLAINT: High blood pressure, "I feel off." MEDICAL DECISION MAKING: Patient presents with the above. Patient with a known prior history of pancreatitis. IV was established and blood work is obtained. Patient was ordered IV fluids and IV Zofran. No significant tenderness to palpation on exam. Patient with a white count of 15 in light of patient's history of chronic pancreatitis CT abdomen pelvis was performed. Chest x-ray had been performed and negative. Patient denies any upper respiratory symptoms.Other blood work shows a normal hemoglobin. Platelet count of 420. This is higher compared to what it has been in the past. Kidney function is unremarkable. Calcium of 10.6. Urinalysis does not show evidence of blood or infection BioFire negative. Patient CT does show concern for pancreatitis. Lipase currently 100. The patient does have epigastric pain on exam. May need speak with the on-call hospitalist service Dr. Gibson and the patient was admitted to the medicine service. Discussion w/ other healthcare providers: None Prior /Outside records reviewed: None Differential diagnosis: Benign hypertension, hypertensive emergency, hypertensive emergency/urgency, salt intake, pheochromocytoma, electrolyte abnormality, renal disease as well as other etiologies were entertained. Diagnostics, as interpreted by me: ECG: None Cardiac monitoring: An order was placed for continuous cardiac monitoring. The monitor shows a rate of 77 with sinus rhythm. Patient was placed on pulse oximetry Medical decision rules: None Imaging studies: I informally interpreted the patient's CT abdomen pelvis does show concern for stranding of the pancreas with formal report to follow. HPI: Patient presents due to concerns for high blood pressure. The patient states that she had a recent stent that was placed by Dr. Garcia and did require admission to the hospital. The patient states that at the time of her discharge the patient was noted to be hypertensive but was told that it might just be secondary to her pain. The patient states that she did not have any time of the time her blood pressure was elevated and was discharged. The patient did not taken thing for it at home. Patient states that she does have chronic nausea as well as abdominal discomfort does have a known history of chronic pancreatitis. Patient denies any chest pains or shortness of breath. The patient denies any actual vomiting. Patient does drink occasional small cup of coffee that is caffeinated but denies any supplements or stimulants. No alcohol tobacco or drug use. Patient denies any increase in stress or anxiety. PAST MEDICAL HISTORY: See Below PAST SURGICAL HISTORY: See Below SOCIAL HISTORY: See Below HOME MEDICATIONS: See Below ALLERGIES: See Below VITALS: See Below PHYSICAL EXAMINATION: GENERAL: NAD, non-toxic. EYE EXAM: Normal conjunctiva. PERRL, no anisocoria and EOM's grossly intact w/o pain. OROPHARYNX: Moist mucus membranes, grossly normal dentition. NECK: Trachea midline, no stridor. LUNGS: Clear to auscultation. Normal chest wall mechanics. HEART: NSR, no MRG. ABDOMEN: Abdomen soft, epigastric pain without lower abdominal pain, not peritonitic, no masses, no rebound or guarding. BACK: No CVA TTP. SKIN: No rashes and no bruising. UPPER EXTREMITIES: Upper extremities are grossly normal. LOWER EXTREMITIES: Grossly normal, no edema. NEURO EXAM: A&O x3, cranial nerves II-XII grossly intact, normal speech, moves all 4 extremities. Past Med/Surg History Problem List (Updated 05/18/24 @ 01:22 by Jimenez Vásquez MD) Abdominal pain (Acute) Pancreatitis (Acute) Pancreatic divisum Post-ERCP acute pancreatitis Leukocytosis (Acute) Pancreatitis (Acute) Abdominal pain (Acute) Enteritis (Acute) Pancreatitis (Acute) Epigastric abdominal pain (Acute) GERD (gastroesophageal reflux disease) Medical marijuana use Abdominal pain, acute (Acute) Acute pancreatitis (Acute) Pain at surgical site H/O umbilical hernia repair (02/20/21) Open Umbilical Hernia Repair- Al Lizama DO, FACS 02/20/2021 Obesity (BMI 30.0-34.9) Hx laparoscopic cholecystectomy 08/22/2020 Dr. Garvin Umbilical hernia Anemia Allergic rhinitis Endometriosis (Chronic) Chronic pelvic pain in female S/P laparoscopic hysterectomy S/P unilateral salpingo-oophorectomy Encounter for pre-operative examination Medical History History of stomach ulcers Depression Anxiety Surgical History History of colonoscopy History of hysterectomy with unilateral oophorectomy d/t endometriosis (right removed) History of bilateral tubal ligation History of dilatation and curettage History of esophagogastroduodenoscopy (EGD) History of tooth extraction Family History Mother Family history of reaction to anesthesia SLOW TO WAKE UP Diabetes Lung cancer Father Cerebral aneurysm Social History Smoking Status: Never smoker Second Hand Exposure: No; Do You Dip or Chew Tobacco: No; Hx Alcohol Use: No Hx Substance Use: No Preferred Language: Irish Communication Ability: Effective Lot Attendant Required: No Beliefs That Will Affect Care: None marital status: Single Current Living Situation: Spouse Current Living Situation Comment: Lives with fiance and DAUGHTER current occupational status: unemployed and disabled current occupation: HAS NOT WORKED 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 How many Children do You have: 2 Feels Safe at Home: Yes during the past year weight has: decreased > 10 lbs Assistive Devices: None Allergies Allergies Allergy/AdvReac Type Severity Reaction Status Date / Time clindamycin Allergy Intermediate muscle Verified 05/10/24 21:42 aches/metal taste in mouth Penicillins Allergy Unknown UNKNOWN, Verified 05/10/24 21:42 CHILD ALLERGY doxycycline AdvReac Mild Metallic Verified 05/10/24 21:42 Taste Home Meds Home Medications Medication Instructions Recorded Confirmed duloxetine 60 mg capsule,delayed 60 mg PO QAM 03/01/19 05/17/24 release (Cymbalta) fluticasone propionate 50 2 spray intranasal DAILY PRN 08/14/20 05/17/24 mcg/actuation nasal Allergy Symptoms spray,suspension loratadine 10 mg tablet (Claritin) 10 mg PO QAM PRN Allergic Symptoms 08/14/20 05/17/24 trazodone 100 mg tablet 100 mg PO HS 06/26/22 05/17/24 buspirone 15 mg tablet 15 mg PO AMHS 05/11/24 05/17/24 linaclotide 290 mcg capsule 290 mcg PO DAILYBB 05/11/24 05/17/24 (Linzess) pantoprazole 40 mg tablet,delayed 40 mg PO QAM 05/11/24 05/17/24 release Previous Rx's Medication Instructions Recorded ondansetron 4 mg disintegrating 4 mg PO Q6H PRN nausea and 07/20/23 tablet vomiting #12 tabs oxycodone 5 mg tablet 5 mg PO Q4H PRN pain #7 tabs 05/15/24 Results & Data (ED) Vital Signs Vital Signs - 24 hr 05/17/24 18:07 05/17/24 18:25 05/17/24 18:31 Temperature 36.9 C Temperature Source Temporal Artery Scan Pulse Rate 91 H 84 Pulse Rate [Finger] 79 Pulse Rhythm [Finger] Pulse Strength [Finger] Respiratory Rate 18 18 Respiratory Effort / Characteristics Respiratory Depth Blood Pressure 138/98 Blood Pressure [Left Arm] 146/96 H Blood Pressure Mean 111 Blood Pressure Mean [Left Arm] 112 Pulse Oximetry 99 98 Oxygen Delivery Method Sepsis Recent Fever Within 48 Hours No Sepsis New/Unexplained Change in Mental Status N/A Sepsis Action Taken by Nursing No Action Required 05/17/24 20:11 Temperature Temperature Source Pulse Rate Pulse Rate [Finger] 80 Pulse Rhythm [Finger] Regular Pulse Strength [Finger] Normal Respiratory Rate 20 Respiratory Effort / Characteristics Non-Labored Respiratory Depth Normal Blood Pressure Blood Pressure [Left Arm] 130/88 Blood Pressure Mean Blood Pressure Mean [Left Arm] 102 Pulse Oximetry 98 Oxygen Delivery Method Room Air Sepsis Recent Fever Within 48 Hours Sepsis New/Unexplained Change in Mental Status Sepsis Action Taken by Prison Medications Current Medication List: was personally reviewed by me Laboratory Data Attestation: I reviewed the patient's lab results. 05/17/24 18:32 05/17/24 18:32 Lab Results 05/17/24 Range/Units 18:32 WBC 15.19 H (4.8-10.8) K/ul RBC 4.37 (4.20-5.40) M/uL Hgb 13.9 (12.0-16.0) g/dl Hct 40.3 (37.0-47.0) % MCV 92.2 (80.0-100.0) fL MCH 31.8 (25.0-34.0) pg MCHC 34.5 (32.0-36.0) g/dL RDW Std Deviation 42.5 (36.4-46.3) fL RDW Coeff of Leopoldo 12.4 (11.5-14.5) % Plt Count 420 H (130-400) K/uL MPV 8.3 L (9.4-12.4) fL Immature Gran % (Auto) 0.5 % Neut % (Auto) 81.4 % Lymph % (Auto) 10.1 % [place] % (Auto) 6.2 % Eos % (Auto) 1.3 % Baso % (Auto) 0.5 % Neut # (Auto) 12.39 H (1.40-6.50) K/uL Lymph # (Auto) 1.53 (1.20-3.40) K/uL [place] # (Auto) 0.94 H (0.11-0.59) K/uL Eos # (Auto) 0.19 (0.00-0.50) K/uL Baso # (Auto) 0.07 (0.00-0.20) K/uL Immature Gran # (Auto) 0.07 (0.01-0.20) K/uL Sodium 137 (136-145) mmol/L Potassium 3.8 (3.5-5.1) mmol/L Chloride 98 (98-107) mmol/L Carbon Dioxide 32 (21-32) mmol/L Anion Gap 7 (3-11) BUN 18 (6-23) mg/dl Creatinine 0.82 (0.6-1.2) mg/dl Est Cr Clr Drug Dosing 85.9 ml/min eGFR 93.25 BUN/Creatinine Ratio 22.0 H (10-20) Glucose 91 (70-99(Fasting)) mg/dl Calcium 10.6 H (8.6-10.3) mg/dl Total Bilirubin 0.4 (0.2-1.0) mg/dl AST 18 (13-39) U/L ALT 25 (7-52) U/L Alkaline Phosphatase 116 H (34-104) U/L Troponin I High Sens 4.7 (0-14) pg/ml Total Protein 7.9 (6.0-8.3) gm/dl Albumin 4.7 (3.4-5.0) gm/dl Globulin 3.2 (2.5-4.0) gm/dl Albumin/Globulin Ratio 1.5 (0.9-2) Lipase 100 H (11-82) U/L Urine Color Yellow Urine Appearance Clear (Clear) Urine pH 7.0 (4.5-7.5) Ur Specific [place] 1.012 (1.000-1.030) Urine Protein Negative (Negative) Urine Glucose (UA) Negative (Negative) Urine Ketones Negative (Negative) Urine Blood Negative (Negative) Urine Nitrite Negative (Negative) Urine Bilirubin Negative (Negative) Urine Urobilinogen Negative (Negative) Ur Leukocyte Esterase Negative (Negative) Urine Opiates Screen Neg (Neg) Ur Methadone, Qual Neg (Neg) Urine Fentanyl Screen Neg (Neg) Urine Barbiturates Neg (Neg) Ur Phencyclidine (PCP) Neg (Neg) U Amphetamin/Meth Scrn Neg (Neg) MDMA (Ecstasy) Screen Neg (Neg) U Benzodiazepines Scrn Neg (Neg) Ur Cocaine Metabolite Neg (Neg) U Marijuana (THC) Screen Pos H (Neg) Adenovirus (PCR) Not Detected (NotDetected) B. pertussis DNA (PCR) Not Detected (NotDetected) B.parapertussis DNA PCR Not Detected (NotDetected) C. pneumoniae DNA (PCR) Not Detected (NotDetected) Coronavirus OC43 (PCR) Not Detected (NotDetected) Coronavirus HKU1 (PCR) Not Detected (NotDetected) Coronavirus 229E (PCR) Not Detected (NotDetected) SARS-CoV-2 (PCR) Not Detected (NotDetected) Coronavirus NL63 (PCR) Not Detected (NotDetected) Human Metapneumovir PCR Not Detected (NotDetected) Influenza Type A (PCR) Not Detected (NotDetected) Influenza Type B (PCR) Not Detected (NotDetected) M. pneumoniae (PCR) Not Detected (NotDetected) Parainfluenza 1 (PCR) Not Detected (NotDetected) Parainfluenza 2 (PCR) Not Detected (NotDetected) Parainfluenza 3 (PCR) Not Detected (NotDetected) Parainfluenza 4 (PCR) Not Detected (NotDetected) RSV (PCR) Not Detected (NotDetected) Entero/Rhino (PCR) Not Detected (NotDetected) Administered Medications Buspirone HCl (Buspirone 15 Mg Tab) 15 mg PO AMHS ALEX Stop: 06/16/24 21:39 Last Admin: 05/17/24 22:24 Dose: 15 mg Documented By: ELENA Dextrose/Lactated Ringer's (D5w And Lactated Ringers) 1,000 mls @ 80 mls/hr IV .[id number] ALEX Stop: 05/18/24 21:29 Last Admin: 05/17/24 22:02 Dose: 80 mls/hr Documented By: ELENA Meropenem 500 mg/ Syringe 10 mls @ 2 mls/min IV Q6H ALEX; Protocol Stop: 05/27/24 21:59 Last Admin: 05/17/24 22:02 Dose: 2 mls/min Documented By: ELENA Trazodone HCl (Trazodone Hcl 100 Mg Tab) 100 mg PO HS ALEX Stop: 06/16/24 21:39 Last Admin: 05/17/24 22:24 Dose: 100 mg Documented By: ELENA Discontinued Medications Gadobutrol (Gadobutrol 65ml Vial) 7 ml IV ONCE ONE Stop: 05/18/24 00:37 Last Admin: 05/18/24 00:36 Dose: 7 ml Documented By: BRYSON Sodium Chloride (Nss) 500 mls @ 999 mls/hr IV .Q31M ONE Stop: 05/17/24 19:50 Last Infusion: 05/17/24 20:16 Dose: Infused Documented By: Admin: 05/17/24 19:26 Dose: 999 mls/hr Documented By: ELENA Sodium Chloride (Nss) 500 mls @ 999 mls/hr IV .Q31M ONE Stop: 05/17/24 21:52 Last Infusion: 05/17/24 22:29 Dose: Infused Documented By: Admin: 05/17/24 22:03 Dose: 999 mls/hr Documented By: ELENA Ioversol (Optiray 320 100ml) 90 ml IV ONCE ONE Stop: 05/17/24 19:37 Last Admin: 05/17/24 19:36 Dose: 90 ml Documented By: TREY Ondansetron HCl (Ondansetron Inj 2 Mg/Ml 2 Ml Vial) 4 mg IV NOW STA Stop: 05/17/24 19:21 Last Admin: 05/17/24 19:26 Dose: 4 mg Documented By: ELENA Imaging Data Radiologist's Impression: Chest X-Ray 05/17/24 18:19 Clinical History: Hypertension Technique: A frontal view of the chest was obtained Findings: There are no confluent pulmonary infiltrates. The heart size is within normal limits. No pleural effusion or pneumothorax is seen. There is no definite pulmonary nodule. No fracture is noted. There is mild scoliosis Impression: No active disease Electronically signed by Joshua Lamb 05-17-2024 6:40 PM Abdomen/Pelvis CT 05/17/24 19:20 EXAMINATION: CT of the abdomen and pelvis performed after the administration of IV contrast TECHNIQUE: Helical CT images from the lung bases through the symphysis pubis were obtained with contrast. Coronal and sagittal reformatted images were generated at a workstation for further assessment. Dose reduction techniques were achieved by using automatic exposure control and/or adjustment of mA and/or kV according to patient size and/or use of iterative reconstruction technique. COMPARISON: 05/10/2024 HISTORY: Abdominal pain FINDINGS: Lower chest: No consolidation. No pleural effusion or pneumothorax. Liver: No suspicious liver lesions. Portal veins appear patent. Gallbladder: Cholecystectomy. Spleen: Normal size. Pancreas: Pancreatic stent appears stable from prior, with the proximal pigtail in the duodenum. Significant interval increase in inflammatory fat stranding changes anterior to the pancreatic head since prior, which extends further into the mesentery. Within the inflammatory changes, there is some ill-defined low density suggesting edema and incompletely formed, developing fluid collection, as seen on axial image 119, measuring 19 x 14 mm. Adrenal glands: No adrenal nodules. Kidneys: No hydronephrosis or obstructing renal stones. Bladder / Pelvic organs: Unremarkable. Left ovarian corpus luteal cyst. Bowel: No bowel obstruction. No abnormal bowel wall thickening. The appendix is unremarkable. Lymph nodes: No retroperitoneal, mesenteric, or pelvic lymphadenopathy. Peritoneum / Retroperitoneum: No free fluid or air within the abdomen. Vessels: No infrarenal aortic aneurysm. Bones and soft tissues: No suspicious lesion in the bones. IMPRESSION: Significant interval increase in inflammatory fat stranding anterior to the head of the pancreas, with further extension into the mesentery, within which there is some ill-defined low attenuating edema, representing incompletely formed area of fluid collection. The pancreatic stent is stable. Electronically signed by Mamadou Stoddard 05-17-2024 8:05 PM Discharge Plan Visit Data Chief Complaint: Hypertension Stated Complaint: HYPERTENSION, LIGHTHEADED, HEADACHE ED Provider: Jimenez Vásquez Discharge Problem: Pancreatitis, Abdominal pain Discharge Instructions Interventions: ED Discharge Assessment Last Done: 05/17/24 21:41 Discharge Problem: Pancreatitis Qualifiers: Chronicity: acute Pancreatitis type: unspecified pancreatitis type Acute pancreatitis complication: unspecified Qualified Code(s): K85.90 - Acute pancreatitis without necrosis or infection, unspecified Abdominal pain Qualifiers: Abdominal location: epigastric Qualified Code(s): R10.13 - Epigastric pain
[2024-05-17 18:58] LABS: Appearance Urine Clear (Clear); Bilirubin Urine Negative (Negative); Blood Urine Negative (Negative); Color Urine Yellow; Glucose Urine UA Negative (Negative); Ketones Urine Negative (Negative); Leukocyte Esterase Urine Negative (Negative); Nitrite Urine Negative (Negative); Protein Urine Negative (Negative); Specific Gravity Urine 1.012 (1.000-1.030); Urobilinogen Urine Negative (Negative)
[2024-05-17 19:08] LABS: Basophils # (auto) 0.07 K/uL (0.00-0.20); Basophils % (auto) 0.5 %; Eosinophils # (auto) 0.19 K/uL (0.00-0.50); Eosinophils % (auto) 1.3 %; Hematocrit (blood only) 40.3 % (37.0-47.0); Hemoglobin 13.9 g/dl (12.0-16.0); Immature Granulocytes # (auto) 0.07 K/uL (0.01-0.20); Immature Granulocytes % (auto) 0.5 %; Lymphocytes # (auto) 1.53 K/uL (1.20-3.40); Lymphocytes % (auto) 10.1 %; Mean Corpuscular Hemoglobin 31.8 pg (25.0-34.0); Mean Corpuscular Hgb Conc 34.5 g/dL (32.0-36.0); Mean Corpuscular Volume 92.2 fL (80.0-100.0); Mean Platelet Volume 8.3 fL (9.4-12.4); Monocytes # (auto) 0.94 K/uL (0.11-0.59); Monocytes % (auto) 6.2 %; Neutrophils # (auto) 12.39 K/uL (1.40-6.50); Neutrophils % (auto) 81.4 %; Platelet Count 420 K/uL (130-400); RDW Coefficient of Variation 12.4 % (11.5-14.5); RDW Standard Deviation 42.5 fL (36.4-46.3); Red Blood Count 4.37 M/uL (4.20-5.40); White Blood Count 15.19 K/ul (4.8-10.8)
[2024-05-17 19:22] LABS: Albumin Globulin Ratio 1.5 (0.9-2); Albumin Level 4.7 gm/dl (3.4-5.0); Bilirubin,Total 0.4 mg/dl (0.2-1.0); Calcium 10.6 mg/dl (8.6-10.3); Creatinine Clr Calc Pharmacy 85.9 ml/min; Globulin 3.2 gm/dl (2.5-4.0); Potassium 3.8 mmol/L (3.5-5.1); Total Protein 7.9 gm/dl (6.0-8.3)
[2024-05-17] MEDS: ONDANSETRON INJ 2 MG/ML 2 ML VIAL IV STA (19:26)
[2024-05-17] MEDS: SODIUM CHLORIDE 0.9% 500 ML IV ONE ×2 (19:26→22:03)
[2024-05-17 19:34] LABS: Adenovirus PCR Not Detected (NotDetected); Bordetella parapertussis PCR Not Detected (NotDetected); Bordetella pertussis PCR Not Detected (NotDetected); Chlamydia pneumoniae PCR Not Detected (NotDetected); Coronavirus 229E PCR Not Detected (NotDetected); Coronavirus CoV-2 (COVID19)PCR Not Detected (NotDetected); Coronavirus HKU1 PCR Not Detected (NotDetected); Coronavirus NL63 PCR Not Detected (NotDetected); Coronavirus OC43PCR Not Detected (NotDetected); Human Metapneumovirus PCR Not Detected (NotDetected); Influenza A PCR Not Detected (NotDetected); Influenza B PCR Not Detected (NotDetected); Mycoplasma pneumoniae PCR Not Detected (NotDetected); Parainfluenza Virus 1 PCR Not Detected (NotDetected); Parainfluenza Virus 2 PCR Not Detected (NotDetected); Parainfluenza Virus 3 PCR Not Detected (NotDetected); Parainfluenza Virus 4 PCR Not Detected (NotDetected); Respiratory Syncytial VirusPCR Not Detected (NotDetected); Rhinovirus/Enterovirus PCR Not Detected (NotDetected)
[2024-05-17] MEDS: OPTIRAY 320 100ml IV ONE (19:36)
--- NOTE | 2024-05-17 20:05 | CT Scan Report ---
EXAMINATION: CT of the abdomen and pelvis performed after the administration of IV contrast TECHNIQUE: Helical CT images from the lung bases through the symphysis pubis were obtained with contrast. Coronal and sagittal reformatted images were generated at a workstation for further assessment. Dose reduction techniques were achieved by using automatic exposure control and/or adjustment of mA and/or kV according to patient size and/or use of iterative reconstruction technique. COMPARISON: 05/10/2024 HISTORY: Abdominal pain FINDINGS: Lower chest: No consolidation. No pleural effusion or pneumothorax. Liver: No suspicious liver lesions. Portal veins appear patent. Gallbladder: Cholecystectomy. Spleen: Normal size. Pancreas: Pancreatic stent appears stable from prior, with the proximal pigtail in the duodenum. Significant interval increase in inflammatory fat stranding changes anterior to the pancreatic head since prior, which extends further into the mesentery. Within the inflammatory changes, there is some ill-defined low density suggesting edema and incompletely formed, developing fluid collection, as seen on axial image 119, measuring 19 x 14 mm. Adrenal glands: No adrenal nodules. Kidneys: No hydronephrosis or obstructing renal stones. Bladder / Pelvic organs: Unremarkable. Left ovarian corpus luteal cyst. Bowel: No bowel obstruction. No abnormal bowel wall thickening. The appendix is unremarkable. Lymph nodes: No retroperitoneal, mesenteric, or pelvic lymphadenopathy. Peritoneum / Retroperitoneum: No free fluid or air within the abdomen. Vessels: No infrarenal aortic aneurysm. Bones and soft tissues: No suspicious lesion in the bones. IMPRESSION: Significant interval increase in inflammatory fat stranding anterior to the head of the pancreas, with further extension into the mesentery, within which there is some ill-defined low attenuating edema, representing incompletely formed area of fluid collection. The pancreatic stent is stable. Electronically signed by Mamadou Stoddard 05-17-2024 8:05 PM
--- NOTE | 2024-05-17 21:00 | History & Physical Report ---
Date of Service May 17, 2024 Assessment & Plan (1) Acute pancreatitis: Plan: -patient has slightly elevated lipase, abdominal pain and imaging consistent with acute pancreatitis -DELICIA score of 0 suggestive of low mortality -concern of alternative pathology vs. more complex pancreatitis given recurrent symptoms and inability to tolerate PO -s/p cholycystectomy -pancreas divisium is known risk factor for recurrent acute pancreatitis -differential includes complex pancreatitis (developing abscess collection vs. pseudocyst vs. necrosis), PUD , element of gastroparesis, ongoing gastritis, less likely pericarditis, HI, cholangitis, ischemia), autoimmune -SIRS criteria with potential source Plan: -start zosyn given concern for fluid collection, leukocytosis -clear liquid diet, IV fluid resuscitation -GI consult, appreciate recs -hold anticholinergics -dilaudid 0.5 mg IV for pain to reduce PO burden -protonix 40 PO bid ordered for hx of GERD and PUD -given recurrent symptoms, inability to tolerate PO and rapid elevation of leukocytosis, will get MR abdomen w/ and w/o contrast to rule necrosis or other worsening process -check alcohol, tox screen, HCG, autoimmune panel -zofran for nausea, consider reglan pending GI consultation (2) Pancreatic divisum: Plan: -see above (3) GERD (gastroesophageal reflux disease): Plan: -start protonix 40 PO bid (4) Leukocytosis: Plan: -in setting of recurrent pancreatitis -see above, concern for infected pancreas such as necrosis Plan: -blood cx x2, LA, troponin for setting of SIRS criteria with a source (5) History of stomach ulcers: Plan: -see above (6) Anxiety: Plan: -also has depression Plan: -continue home meds Plan Feeding/fluids: clear Analgesia: IV dilaudid Sedation: na Thromboprophylaxis: lovenox Head up position: na Ulcer prophylaxis: protonix bid Glycemic control: na Spontaneous breathing trial: na Bowel care: miralax prn Indwelling catheter removal: na Deescalation of antibiotics: zosyn, sebastianescalate pending imaging results I spent a total of 80 minutes in direct patient care, including [id number] time with the patient and/or family, reviewing medical records, ordering and reviewing diagnostic tests, and coordinating care with other healthcare providers. This time includes: history taking, physical examination, medical decision making, counseling, ECG interpretation, imaging interpretation, lab interpretation, orders, and education, excluding time spent in the performance of separately billed services. History of Present Illness Chief Complaint: -inability to tolerate PO Primary Care Provider: Williams Hauser MD 38-year-old female with past medical history significant for history of recurrent pancreatitis, possible pancreatic divisum status post ERCP with pancreatic stent, irritable bowel syndrome with constipation, fatty liver, spondylolysis of lumbar and cervical region, major depression, general anxiety disorder, medical marijuana use who presents for inability to tolerate PO and feeling off. She states that she has not tolerated any solid food since discharge from the hospital a few days ago. She states she tried soft foods once on Thursday, and within 1 hour caused severe nausea, abdominal pain, and lightheadedness. Since then she has been mostly on a clear liquid diet, but has been feeling off. She describes feeling off as lightheaded, headache. Of note she states that this does not feel like her normal pancreatitis symptoms, as the pain and nausea is delayed about an hour. She also states the headache and lightheadedness are new. Allergies Allergy/AdvReac Type Severity Reaction Status Date / Time clindamycin Allergy Intermediate muscle Verified 05/10/24 21:42 aches/metal taste in mouth Penicillins Allergy Unknown UNKNOWN, Verified 05/10/24 21:42 CHILD ALLERGY doxycycline AdvReac Mild Metallic Verified 05/10/24 21:42 Taste Home Medications Medication Instructions Recorded Confirmed Type duloxetine 60 mg capsule,delayed 60 mg PO QAM 03/01/19 05/17/24 History release (Cymbalta) fluticasone propionate 50 2 spray intranasal DAILY PRN 08/14/20 05/17/24 History mcg/actuation nasal Allergy Symptoms spray,suspension loratadine 10 mg tablet (Claritin) 10 mg PO QAM PRN Allergic Symptoms 08/14/20 05/17/24 History trazodone 100 mg tablet 100 mg PO HS 06/26/22 05/17/24 History ondansetron 4 mg disintegrating 4 mg PO Q6H PRN nausea and 07/20/23 05/17/24 Rx tablet vomiting #12 tabs buspirone 15 mg tablet 15 mg PO AMHS 05/11/24 05/17/24 History linaclotide 290 mcg capsule 290 mcg PO DAILYBB 05/11/24 05/17/24 History (Linzess) pantoprazole 40 mg tablet,delayed 40 mg PO QAM 05/11/24 05/17/24 History release oxycodone 5 mg tablet 5 mg PO Q4H PRN pain #7 tabs 05/15/24 05/17/24 Rx Past Med/Surg History Problem List (Updated 05/17/24 @ 21:30 by Loy Gibson MD) Pancreatic divisum Post-ERCP acute pancreatitis Leukocytosis (Acute) Pancreatitis (Acute) Abdominal pain (Acute) Enteritis (Acute) Pancreatitis (Acute) Epigastric abdominal pain (Acute) GERD (gastroesophageal reflux disease) Medical marijuana use Abdominal pain, acute (Acute) Acute pancreatitis (Acute) Pain at surgical site H/O umbilical hernia repair (02/20/21) Open Umbilical Hernia Repair- Al Lizama DO, FACS 02/20/2021 Obesity (BMI 30.0-34.9) Hx laparoscopic cholecystectomy 08/22/2020 Dr. Garvin Umbilical hernia Anemia Allergic rhinitis Endometriosis (Chronic) Chronic pelvic pain in female S/P laparoscopic hysterectomy S/P unilateral salpingo-oophorectomy Encounter for pre-operative examination Medical History History of stomach ulcers Depression Anxiety Surgical History History of colonoscopy History of hysterectomy with unilateral oophorectomy d/t endometriosis (right removed) History of bilateral tubal ligation History of dilatation and curettage History of esophagogastroduodenoscopy (EGD) History of tooth extraction Family History Mother Family history of reaction to anesthesia SLOW TO WAKE UP Diabetes Lung cancer Father Cerebral aneurysm Social History Smoking Status: Never smoker Second Hand Exposure: No; Do You Dip or Chew Tobacco: No; Hx Alcohol Use: No Hx Substance Use: No Preferred Language: Australian Communication Ability: Effective Motor Winder Required: No Beliefs That Will Affect Care: None marital status: Single Current Living Situation: Spouse Current Living Situation Comment: Lives with fiance and DAUGHTER current occupational status: unemployed and disabled current occupation: HAS NOT WORKED 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 How many Children do You have: 2 Feels Safe at Home: Yes during the past year weight has: decreased > 10 lbs Assistive Devices: None Review of Systems Review of Systems: CONSTITUTIONAL: weakness, lightheadedness EYES: Patient denies any visual symptoms. EARS, NOSE, AND THROAT: No difficulties with hearing. No symptoms of rhinitis or sore throat. CARDIOVASCULAR: Patient denies chest pains, palpitations, orthopnea and paroxysmal nocturnal dyspnea. RESPIRATORY: No dyspnea on exertion, no wheezing or cough. GI: inability to tolerate PO, mild abdominal pain : No urinary hesitancy or dribbling. No nocturia or urinary frequency. No abnormal urethral discharge. MUSCULOSKELETAL: No myalgias or arthralgias. NEUROLOGIC: No chronic headaches, no seizures. Patient denies numbness, tingling or weakness. PSYCHIATRIC: Patient denies problems with mood disturbance. No problems with anxiety. ENDOCRINE: No excessive urination or excessive thirst. DERMATOLOGIC: Patient denies any rashes or skin changes. Physical Exam Physical Exam: Gen: A&O 3 NAD HEENT: NCAT, EOMI, not icteric. External ears normal. No rhinorrhea. Moist mucous membranes. Neck: Supple, full range of motion, no observable masses, No meningeal sign. Lungs: No Respiratory distress. CV: RRR, no edema. Abdomen: tenderness to palpation in MUQ, RUQ MSK: No joint swelling, no redness. Skin: No rashes, petechiae, lesions. Normal color per patient. Neuro: Normal Gait, Grossly intact. Psych: Appropriate for situation. Results & Data Results & Data Vital Signs (Past 12 Hours) Vital Signs Temp Pulse Pulse Resp BP BP Pulse Ox 05/17/24 20:11 80 20 130/88 98 05/17/24 18:31 84 05/17/24 18:25 79 18 146/96 H 98 05/17/24 18:07 36.9 C 91 H 18 138/98 99 O2 Del Method 05/17/24 20:11 Room Air 05/17/24 18:31 05/17/24 18:25 05/17/24 18:07 Laboratory Results -personally reviewed, worsening leukocytosis from few days ago, elevated calcium/BUN suggestive of dehydration Diagnostic Findings Chest X-Ray 05/17/24 18:19 Clinical History: Hypertension Technique: A frontal view of the chest was obtained Findings: There are no confluent pulmonary infiltrates. The heart size is within normal limits. No pleural effusion or pneumothorax is seen. There is no definite pulmonary nodule. No fracture is noted. There is mild scoliosis Impression: No active disease Electronically signed by Joshua Lamb 05-17-2024 6:40 PM Abdomen/Pelvis CT 05/17/24 19:20 EXAMINATION: CT of the abdomen and pelvis performed after the administration of IV contrast TECHNIQUE: Helical CT images from the lung bases through the symphysis pubis were obtained with contrast. Coronal and sagittal reformatted images were generated at a workstation for further assessment. Dose reduction techniques were achieved by using automatic exposure control and/or adjustment of mA and/or kV according to patient size and/or use of iterative reconstruction technique. COMPARISON: 05/10/2024 HISTORY: Abdominal pain FINDINGS: Lower chest: No consolidation. No pleural effusion or pneumothorax. Liver: No suspicious liver lesions. Portal veins appear patent. Gallbladder: Cholecystectomy. Spleen: Normal size. Pancreas: Pancreatic stent appears stable from prior, with the proximal pigtail in the duodenum. Significant interval increase in inflammatory fat stranding changes anterior to the pancreatic head since prior, which extends further into the mesentery. Within the inflammatory changes, there is some ill-defined low density suggesting edema and incompletely formed, developing fluid collection, as seen on axial image 119, measuring 19 x 14 mm. Adrenal glands: No adrenal nodules. Kidneys: No hydronephrosis or obstructing renal stones. Bladder / Pelvic organs: Unremarkable. Left ovarian corpus luteal cyst. Bowel: No bowel obstruction. No abnormal bowel wall thickening. The appendix is unremarkable. Lymph nodes: No retroperitoneal, mesenteric, or pelvic lymphadenopathy. Peritoneum / Retroperitoneum: No free fluid or air within the abdomen. Vessels: No infrarenal aortic aneurysm. Bones and soft tissues: No suspicious lesion in the bones. IMPRESSION: Significant interval increase in inflammatory fat stranding anterior to the head of the pancreas, with further extension into the mesentery, within which there is some ill-defined low attenuating edema, representing incompletely formed area of fluid collection. The pancreatic stent is stable. Electronically signed by Mamadou Stoddard 05-17-2024 8:05 PM Code Status & VTE Plan VTE Prophylaxis Plan VTE Prophylaxis will be ordered: Yes (1) Acute pancreatitis Acute pancreatitis complication: infected necrosis Pancreatitis type: i diopathic Qualified Code(s): K85.02 - Idiopathic acute pancreatitis with infected necrosis (3) GERD (gastroesophageal reflux disease) Esophagitis presence: without esophagitis Qualified Code(s): K21.9 - Gastro- esophageal reflux disease without esophagitis (4) Leukocytosis Leukocytosis type: unspecified Qualified Code(s): D72.829 - Elevated white blood cell count, unspecified
[2024-05-17] MEDS ORDERED: FLUTICASONE PROPIONATE NA SPR 16 GM BTL PRN (21:40)
[2024-05-17] MEDS ORDERED: POLYETHYLENE (MIRALAX) 17 GM PACK PO PRN (21:40)
[2024-05-17] MEDS ORDERED: ACETAMINOPHEN 325 MG TAB PO PRN (21:40)
[2024-05-17 21:59] LABS: Troponin I High Sensitivity 4.7 pg/ml (0-14)
[2024-05-17] MEDS: D5W AND LACTATED RINGERS 1,000 ML IV SCH (22:02)
[2024-05-17] MEDS: MEROPENEM 500 MG in SYRINGE 0 ML IV SCH (22:02)
[2024-05-17] MEDS: busPIRone 15 MG TAB PO SCH (22:24)
[2024-05-17] MEDS: traZODone HCL 100 MG TAB PO SCH (22:24)
[2024-05-17 22:53] LABS: Amphetamines+Metham, Urine Neg (Neg); Barbiturates, Urine Neg (Neg); Benzodiazepine, Urine Neg (Neg); Cocaine, Urine Neg (Neg); Fentanyl, Urine Neg (Neg); MDMA (Ecstacy), Urine Neg (Neg); Marijuana, Urine Pos (Neg); Methadone, Urine Neg (Neg); Opiate, Urine Neg (Neg); Phencyclidine, Urine Neg (Neg)
[2024-05-18] MEDS: GADOBUTROL 65ML VIAL IV ONE (00:36)
[2024-05-18] MEDS: HYDROmorphone INJ 0.5 MG/0.5 ML SYR IV PRN (01:23)
--- NOTE | 2024-05-18 02:13 | Magnetic Resonance Report ---
EXAM: MR abdomen wo/w con CLINICAL HISTORY: leukocytosis, worsening scan results, r/o necrosis TECHNIQUE: Multiplanar, multisequence MR imaging was performed through the abdomen with and without 7cc gadavist IV contrast. COMPARISON: CT 05/10/2024 FINDINGS: Liver: Normal size and morphology. Homogeneous signal intensity on T1 and T2-weighted images. No focal hepatic lesions. Normal enhancement pattern post-contrast. Gallbladder and Biliary System: The gallbladder is surgically removed. Intrahepatic and extrahepatic bile ducts are not dilated. Pancreas: The anterior superior portion of the pancreatic body and neck are enlarged and show areas of cystic changes and extensive perinephric fat stranding and edema was loss of the fat plane between the pancreas and gastric antrum. The antrum displaced anteriorly. The cystic areas show no postcontrast enhancement, suggesting necrotic tissue. The distal pancreatic body and tail are normal; no pancreatic duct dilatation. Spleen: Normal size and appearance. Homogeneous signal intensity. No focal lesions. Normal enhancement post-contrast. Adrenal Glands: Normal size and morphology bilaterally. No adrenal masses. Normal enhancement post-contrast. Kidneys and Ureters: Normal size, shape, and position of both kidneys. Homogeneous signal intensity on T1 and T2-weighted images. No renal stones, masses, or hydronephrosis. Ureters are unremarkable, proximally. Normal enhancement post-contrast. Bowel: Normal appearance of the visualized bowel loops. No evidence of obstruction, wall thickening, or abnormal dilatation. Vascular Structures: The abdominal aorta and its major branches are normal in caliber. No aneurysm or significant atherosclerosis. Normal enhancement post-contrast. Lymph Nodes: No pathologically enlarged lymph nodes in the abdomen. Peritoneum: No free fluid or free air in the abdomen. Bones: No lytic or sclerotic lesions. Soft Tissues: Normal appearance of the visualized soft tissues. IMPRESSION: 1. The enlarged bulky anterior proximal part of the pancreatic body and neck is surrounded with extensive fat stranding and inflammatory changes with loss of fat planes between the pancreas and gastric antrum, the antrum is displaced anteriorly. Within the pancreatic tissue, there is an area of cystic changes showing no postcontrast enhancement, suggesting necrotic tissue. On the other hand, a necrotic mass lesion cannot be excluded totally. 2. Overall fissures might be suggestive of necrotizing pancreatitis. 3. In comparison to last CT, this is a new finding. Electronically signed by Amy Barker 05-18-2024 02:13 AM
--- OUTSIDE RECORDS SUMMARY | 2024-05-18 02:59 | External Medical Summary | Summary of Care ---
Author Name Unknown Organization [facility] Address [address] [place] [place] [place] [address] Phone [phone] Care Team Providers Care Route Rider Name Role Phone Murtaza BENTON MD, Williams Payton Primary Care Provider [phone] Encounter Details Date Type Department Care Team (Late st Contact Info) Description 05/10/2024 Telephone Gastroenterology, [facility] [address] [place] [address] Shilpi Samuels MD [address] [place] [address] Allergies Active Allergy Reactions Criticality Noted Date [...] Propionate 50 MCG/ACT Nasal Suspension Administer 1 [place] into nostril in the morning. Active Ondansetron [...] AM EST Office Visit Gastroenterology , [facility] [address] [place] [address] Myranda Mckeon CRNP [address] [place] [address] 08/18/2024 8:00 AM EDT Hospital Encounter ENDO [facility], Endoscopy Room [facility] [address] [place] [phone] Ellie Garcia MD [address] [place] [address] 08/18/2024 8:00 AM EDT - 08/18/2024 8:45 AM EDT Surgery ENDO [facility], Endoscopy Room [facility] [address] [place] [phone] Ellie Garcia MD [address] [place] [address] ENDOSCOPIC RETROGRADE CHOLANGIOPANCREATOGRAPHY (ERCP) DIAGNOSTIC 11/04/2024 8:40 AM EDT Office Visit Family Practice [facility] [place] [address] [place] [address] Williams Hauser III, MD [address] [place] [address] Scheduled Procedures Name Priority Associated Diagnoses Date/Ti [...] this encounter Medical Devices Implanted Type Area Work Counselor Device Identifier Shelf Expiration Date Model / Serial / Lot Cartridge Esophyx Z+ - [id number] Implanted:Qty: 1 on 04/28/2019 by Ellie Garcia MD at OR [facility] [employer] 11/03/2020 [id number] / / [id number] Description:fasteners 10@11, 10@1, 4@5, 4@7 placed at GE junction (code 0278) Stent Panc Sgl Pigtail [id number] - [id number] Implanted:Qty: 1 on 05/10/2024 by Ellie Garcia MD at ENDOSCOPY [facility] N/A: Stomach COOK : IMELDA MAYO 09/29/2025 [id number] / / [id number] documented as of this encounter Care Teams Route Rider Relationship Specialty Start Date End Date Williams Hauser III, MD [address] [facility] [place] [address] PCP - General Family Medicine 10/27/22 documented as of this encounter
--- OUTSIDE RECORDS SUMMARY | 2024-05-18 02:59 | External Medical Summary | Summary of Care ---
Author Name Unknown Organization [facility] Address [address] [place] [facility] [place] [address] Phone [phone] Care Team Providers Care Occupational Health And Safety Manager Name Role Phone Murtaza BENTON MD, Williams Payton Primary Care Provider [phone] Encounter Details Date Type Department Care Team (Late st Contact Info) Description 05/16/2024 Population Health External Data Unspecified Department Allergies Active Allergy Reactions Criticality Noted Date Comments Clindamycin Other (Please comment) 12/21/2014 Burned taste Muscle pain Doxycycline Low 08/22/2020 Other reaction(s): Metallic Taste Penicillins Unknown 10/07/2007 As a child Other reaction(s): UNKNOWN, CHILD ALLERGY documented as of this encounter (statuses as of 05/16/2024) Medications NATURAL SUPPLEMENT Take by mouth daily. Medical marijuana Active Loratadine 10 MG Oral Tablet Take 1 Tablet by mouth in the morning. Active Fluticasone Propionate 50 MCG/ACT Nasal Suspension Administer 1 [place] into nostril in the morning. Active Ondansetron [...] as of this encounter (statuses as of 05/16/2024) Active Problems Problem Noted Date Diagnosed Date [...] as of this encounter (statuses as of 05/16/2024) Resolved Problems Problem Noted Date Diagnosed Date [...] as of this encounter (statuses as of 05/16/2024) Immunizations Name Administration Dates Next Due HPV [...] Department Care Team (Latest Contact Info) Description 05/19/2024 11:00 AM EST Office Visit [facility] [place]imee [place] [address] [place] [address] Williams Hauser III, MD [address] [place] [address] 05/24/2024 11:00 AM EST Office Visit Gastroenterology , Health system [address] [place] [address] Myranda Mckeon CRNP [address] [place] [address] 08/18/2024 8:00 AM EDT Hospital Encounter ENDO OSS, Endoscopy Room [facility] [address] [place] [phone] Ellie Garcia MD [address] [place] [address] 08/18/2024 8:00 AM EDT - 08/18/2024 8:45 AM EDT Surgery ENDO [facility], Endoscopy Room [facility] [address] [place] [phone] Ellie Garcia MD [address] [place] [address] ENDOSCOPIC RETROGRADE CHOLANGIOPANCREATOGRAPHY (ERCP) DIAGNOSTIC 11/04/2024 8:40 AM EDT Office Visit [facility] [place] [address] [place] [address] Williams Hauser III, MD [address] [place] [address] Scheduled Procedures Name Priority Associated Diagnoses Date/Ti [...] on patient's age to complete this topic Meningitis B Vaccine (Bexsero/Trumemba) Aged Out No longer eligible based on patient's age to complete this topic documented as of this encounter Medical Devices Implanted Type Area [employer] Repairer Device Identifier Shelf Expiration Date Model / Serial / Lot Cartridge Esophyx Z+ - [id number] Implanted:Qty: 1 on 04/28/2019 by Ellie Garcia MD at OR [facility] [employer] 11/03/2020 [id number] / / [id number] Description:fasteners 10@11, 10@1, 4@5, 4@7 placed at GE junction (code 0278) Stent Panc Sgl Pigtail [id number] - [id number] Implanted:Qty: 1 on 05/10/2024 by Ellie Garcia MD at ENDOSCOPY [facility] N/A: Stomach COOK : IMELDA MAYO 09/29/2025 [id number] / / [id number] documented as of this encounter Care Teams Occupational Health And Safety Manager Relationship Specialty Start Date End Date Williams Hauser III, MD [address] [place] [address] PCP - General Family Medicine 10/27/22 documented as of this encounter
[2024-05-18] MEDS: LACTATED RINGER'S 1,000 ML IV SCH (04:22)
[2024-05-18] MEDS: ENOXAPARIN INJ 40 MG/0.4 ML SYR SQ SCH (06:11)
[2024-05-18] MEDS: LINACLOTIDE 145 MCG CAPSULE PO SCH (06:18)
[2024-05-18 06:29] VITALS: TEMP 97.9
[2024-05-18] MEDS: PANTOprazole 40 MG TAB PO SCH (09:01)
[2024-05-18] MEDS: DULoxetine HCL 60 MG CAP PO SCH (09:01)
--- NOTE | 2024-05-18 09:50 | Gastrointestinal Consultation ---
Date of Consultation May 18, 2024 Assessment & Plan (1) Pancreatitis: Patient admitted with pancreatitis that she has had since after her ERCP with stent placement on 05/10. MRI this morning is concerning for necrotizing pancreatitis. Discussed case with Dr. Garcia and given findings on MRI, would re commend that she be transferred to a tertiary center for further evaluation. I relayed this to the primary team. In the meantime, would recommend pain control and aggressive IVFs. Can hold off on antibiotics unless she becomes febrile. Supervising Physician Co-Signing Physician Notes I personally saw and examined the patient. I have reviewed the chart and agree with the documentation provided by the FLIGHT TEST SUPERVISOR including discussion about the assessment, treatment and plan. Briefly, 38 year old female with a past medical history significant for history of recurrent pancreatitis, possible pancreatic divisum status post ERCP with pancreatic stent, irritable bowel syndrome with constipation, fatty liver, spondylolysis of lumbar and cervical region, major depression, general anxiety disorder, medical marijuana use who presented to the ED on 05/17 for inability to tolerate oral intake and feeling off after recent admission. She was just discharged on 05/15 after admission for pancreatitis she suffered after recent ERCP. She had ERCP done on 05/10 with stent placement. She tells me she developed pain about 5 hours after that and has not felt well since. After her last discharge, she was not able to tolerate oral intake. CT here shows significant increase in inflammatory fat stranding with acute pancreatitis. An MRI done here showed: enlarged bulky anterior proximal part of the pancreatic body and neck is surrounded with extensive fat stranding and inflammatory changes with loss of fat planes between the pancreas and gastric antrum, the antrum is displaced anteriorly. Within the pancreatic tissue, there is an area of cystic changes showing no postcontrast enhancement, suggesting necrotic tissue. On the other hand, a necrotic mass lesion cannot be excluded totally. Overall fissures might be suggestive of necrotizing pancreatitis. She is not febrile but cannot tolerate a diet. I suggest n.p.o. IV fluids at 200 cc, and follow-up in a tertiary care center. History of Present Illness Reason for Consultation: recurrent pancreatitis Requesting Physician: Loy Gibson MD Attending Physician: Martinez Jackson MD History of Present Illness Patient is a 38 year old female with a past medical history significant for history of recurrent pancreatitis, possible pancreatic divisum status post ERCP with pancreatic stent, irritable bowel syndrome with constipation, fatty liver, spondylolysis of lumbar and cervical region, major depression, general anxiety disorder, medical marijuana use who presented to the ED on 05/17 for inability to tolerate oral intake and feeling off after recent admission. She was just discharged on 05/15 after admission for pancreatitis she suffered after recent ERCP. She had ERCP done on 05/10 with stent placement. She tells me she developed pain about 5 hours after that and has not felt well since. After her last discharge, she was not able to tolerate oral intake. She only seems to tolerate clears. Currently, pain is about the same as it has been. she did have clears for breakfast and tolerated this. 05/17/24 CT A/P - Significant interval increase in inflammatory fat stranding anterior to the head of the pancreas, with further extension into the mesentery, within which there is some ill-defined low attenuating edema, representing incompletely formed area of fluid collection. The pancreatic stent is stable. 05/18/24 MRI - The enlarged bulky anterior proximal part of the pancreatic body and neck is surrounded with extensive fat stranding and inflammatory changes with loss of fat planes between the pancreas and gastric antrum, the antrum is displaced anteriorly. Within the pancreatic tissue, there is an area of cystic changes showing no postcontrast enhancement, suggesting necrotic tissue. On the other hand, a necrotic mass lesion cannot be excluded totally. Overall fissures might be suggestive of necrotizing pancreatitis. In comparison to last CT, this is a new finding. Allergies Allergy/AdvReac Type Severity Reaction Status Date / Time clindamycin Allergy Intermediate muscle Verified 05/10/24 21:42 aches/metal taste in mouth Penicillins Allergy Unknown UNKNOWN, Verified 05/10/24 21:42 CHILD ALLERGY doxycycline AdvReac Mild Metallic Verified 05/10/24 21:42 Taste Home Medications Medication Instructions Recorded Confirmed Type duloxetine 60 mg capsule,delayed 60 mg PO QAM 03/01/19 05/17/24 History release (Cymbalta) fluticasone propionate 50 2 spray intranasal DAILY PRN 08/14/20 05/17/24 History mcg/actuation nasal Allergy Symptoms spray,suspension loratadine 10 mg tablet (Claritin) 10 mg PO QAM PRN Allergic Symptoms 08/14/20 05/17/24 History trazodone 100 mg tablet 100 mg PO HS 06/26/22 05/17/24 History ondansetron 4 mg disintegrating 4 mg PO Q6H PRN nausea and 07/20/23 05/17/24 Rx tablet vomiting #12 tabs buspirone 15 mg tablet 15 mg PO AMHS 05/11/24 05/17/24 History linaclotide 290 mcg capsule 290 mcg PO DAILYBB 05/11/24 05/17/24 History (Linzess) pantoprazole 40 mg tablet,delayed 40 mg PO QAM 05/11/24 05/17/24 History release oxycodone 5 mg tablet 5 mg PO Q4H PRN pain #7 tabs 05/15/24 05/17/24 Rx Patient History Medical History History of stomach ulcers Depression Anxiety Surgical History History of colonoscopy History of hysterectomy with unilateral oophorectomy d/t endometriosis (right removed) History of bilateral tubal ligation History of dilatation and curettage History of esophagogastroduodenoscopy (EGD) History of tooth extraction Family History Mother Family history of reaction to anesthesia SLOW TO WAKE UP Diabetes Lung cancer Father Cerebral aneurysm Social History Smoking Status: Never smoker Second Hand Exposure: No; Do You Dip or Chew Tobacco: No; Hx Alcohol Use: No Hx Substance Use: No Preferred Language: Chinese Communication Ability: Effective White Hat Hacker Required: No Beliefs That Will Affect Care: None marital status: Single Current Living Situation: Spouse Current Living Situation Comment: Lives with fiance and DAUGHTER current occupational status: unemployed and disabled current occupation: HAS NOT WORKED 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 How many Children do You have: 2 Feels Safe at Home: Yes during the past year weight has: decreased > 10 lbs Assistive Devices: None Review of Systems Review of Systems: All systems reviewed & are unremarkable except as noted in HPI & below Physical Exam Constitutional: WD/WN, vitals as above Respiratory: normal respiratory effort, lungs clear to auscultation Cardiovascular: Rate/Rhythm: regular rate and regular rhythm Gastrointestinal (Abdomen): mid epigastric tenderness to palpation, no guarding, soft, decreased bowel sounds. Psychiatric: Orientation: alert and oriented x 3 Affect: euthymic affect Results & Data Vital Signs (Past 12 Hours) Vital Signs Temp Pulse Pulse Resp BP BP Pulse Ox 05/18/24 06:19 97.9 F 75 18 121/71 95 05/18/24 06:10 76 18 121/71 94 05/18/24 06:00 61 18 138/90 96 05/18/24 05:00 62 18 142/85 H 95 05/18/24 04:00 72 18 108/67 95 05/18/24 03:00 69 19 106/66 96 05/18/24 02:00 81 20 108/57 L 92 05/18/24 01:27 83 18 125/76 92 05/17/24 23:20 94 H 18 117/82 93 05/17/24 22:26 74 20 132/71 97 O2 Del Method 05/18/24 06:19 Room Air 05/18/24 06:10 Room Air 05/18/24 06:00 Room Air 05/18/24 05:00 Room Air 05/18/24 04:00 Room Air 05/18/24 03:00 Room Air 05/18/24 02:00 Room Air 05/18/24 01:27 Room Air 05/17/24 23:20 Room Air 05/17/24 22:26 Room Air Coding Level of Care Code 17594 IN/OBS CONSULT LVL 4,60M Diagnoses Pancreatitis K85.90 Acute pancreatitis complication: unspecified Chronicity: acute Pancreatitis type: unspecified pancreatitis type (1) Pancreatitis Acute pancreatitis complication: unspecified Chronicity: acute Pancreatitis type: unspecified pancreatitis type Qualified Code(s): K85.90 - Acute pancreatitis without necrosis or infection, unspecified
[2024-05-18] MEDS: ONDANSETRON 4 MG OD TAB PO PRN (10:31)
[2024-05-18 11:19] VITALS: RESP 17
[2024-05-18 11:20] VITALS: BP 105/74; PULSE 81; O2SAT 98
--- NOTE | 2024-05-18 11:55 | Electrocardiogram Report ---
Test Reason : Blood Pressure : */* mmHG Vent. Rate : 74 BPM Atrial Rate : 74 BPM P-R Int : 122 ms QRS Dur : 68 ms QT Int : 376 ms P-R-T Axes : 38 31 40 degrees QTcB Int : 417 ms Sinus rhythm with PACs Abnormal ECG When compared with ECG of 28-Dec-2023 19:51, Criteria for Inferior infarct are no longer Present Nonspecific T wave abnormality now evident in Anterior leads Confirmed by Mamadou Irizarry ([id number]) on 05/18/2024 11:55:19 AM Referred By: REFERRED SELF Confirmed By: Mamadou Irizarry
--- NOTE | 2024-05-18 13:31 | Discharge Summary ---
Date of Service May 18, 2024 Admission HPI Per Admitting Provider 38-year-old female with past medical history significant for history of recurrent pancreatitis, possible pancreatic divisum status post ERCP with pancreatic stent, irritable bowel syndrome with constipation, fatty liver, spondylolysis of lumbar and cervical region, major depression, general anxiety disorder, medical marijuana use who presents for inability to tolerate PO and feeling off. She states that she has not tolerated any solid food since discharge from the hospital a few days ago. She states she tried soft foods once on Thursday, and within 1 hour caused severe nausea, abdominal pain, and lightheadedness. Since then she has been mostly on a clear liquid diet, but has been feeling off. She describes feeling off as lightheaded, headache. Of note she states that this does not feel like her normal pancreatitis symptoms, as the pain and nausea is delayed about an hour. She also states the headache and lightheadedness are new. Admission Exam Per Admitting Provider Gen: A&O 3 NAD HEENT: NCAT, EOMI, not icteric. External ears normal. No rhinorrhea. Moist mucous membranes. Neck: Supple, full range of motion, no observable masses, No meningeal sign. Lungs: No Respiratory distress. CV: RRR, no edema. Abdomen: tenderness to palpation in MUQ, RUQ MSK: No joint swelling, no redness. Skin: No rashes, petechiae, lesions. Normal color per patient. Neuro: Normal Gait, Grossly intact. Psych: Appropriate for situation. Principal Diagnosis Necrotizing pancreatitis Discharge Exam GENERAL: Alert and oriented x3. NAD, on RA. HEENT: No pallor, no icterus. Pupils equal, round and reactive to light. Oral mucosa moist. NECK: No JVD, no neck masses. HEART: S1 and S2 heard. Regular rate and rhythm. No murmur, no gallop. RESPIRATORY SYSTEM: Normal AP diameter. No accessory muscle use. No wheezing, no crackles. ABDOMEN: Soft, bowel sounds present, epigastric tender, no distention. CENTRAL NERVOUS SYSTEM: No facial droop. Speech is clear. Obeys simple commands. Moves extremities. EXTREMITIES: No edema, no erythema seen. Discharge Data Allergies Allergy/AdvReac Type Severity Reaction Status Date / Time clindamycin Allergy Intermediate muscle Verified 05/10/24 21:42 aches/metal taste in mouth Penicillins Allergy Unknown UNKNOWN, Verified 05/10/24 21:42 CHILD ALLERGY doxycycline AdvReac Mild Metallic Verified 05/10/24 21:42 Taste Consultations 05/17/24 20:32 ED Decision to Admit Stat 05/17/24 21:40 Consult Gastroenterology Routine Ordered Studies 05/17/24 19:20 CT abd pelvis IV con only Stat 05/18/24 00:26 MR abdomen wo/w con Stat Hospital Course (1) Pancreatitis: Plan Patient was seen and examined at bedside as of follow-up of necrotizing pancreatitis likely a complication of ERCP/stent placement and SIRS due to necrotizing pancreatitis. Plan is to continue with pain management and IV fluids. GI evaluated the patient, recommended transfer to [facility]. Patient agreeable to transfer, transfer process to [facility] started and patient has been accepted. Patient will be transferred there. IV fluid will be running during transfer process. Patient will be kept n.p.o. until further evaluation at higher center. IV antibiotic has been stopped per GI recommendation. Home Health Attestation I certify that this patient is under my care and that I, or a physicians community relations assistant working with me, had a face to-face encounter that meets the home health [id number] encounter requirements with this patient. The encounter with the patient was in whole, or in part, for the following medical condition, which is the primary reason for home health care (list medical condition): I certify that, based on my findings, the following services are medically necessary home health services: My clinical findings support the need for the above services because: Further, I certify that my clinical findings support that this patient is homebound (i.e. absences from home require considerable and taxing effort and are for medical reasons or moravian services or infrequently or of short duration when for other reasons) because: Certification for Home Health Services: Based on the above findings, I certify that this patient is confined to the home and needs intermittent care home care, physical therapy and/or speech therapy or continues to need occupational therapy. The patient is under my care, and I have initiated the establishment of the plan of care. This patient will be followed by a physician who will periodically review the plan of care. Total Time Total Time Spent Total Time Spent (In Minutes): 40 Discharge Plan Discharge Items Patient Disposition: Transfer Acute Care Hospital Reason For Visit: RECURRENT PANCREATITIS Discharge Diagnosis: Necrotizing pancreatitis Activity: As commented below Activity Comment: Per tertiary care centre recs. Non-emergency contact: Primary Care Provider Call non-emergency contact if: you have any medication questions Follow-up/Referrals: Williams Hauser MD [Primary Care Provider] - Diet: Nothing by Mouth Addtl Attending Provider Instructions: You are being transferred to [facility] for necrotizing pancreatitis in the setting of recent ERCP and stent placement. You will continue to receive IV fluid during transfer process. You will be nothing by mouth until further evaluation by [facility]. Your current inpatient medications are copied and pasted below, and your home medications are continued as it was prior to arrival for the sake of comparison at [facility]. Current Inpatient Medications Acetaminophen (Acetaminophen 325 Mg Tab) 650 mg PO Q4H PRN PRN Reason: pain/fever Stop: 06/16/24 21:39 Buspirone HCl (Buspirone 15 Mg Tab) 15 mg PO AMHS ALEX Stop: 06/16/24 21:39 Last Admin: 05/18/24 09:02 Dose: 15 mg Duloxetine HCl (Duloxetine Hcl 60 Mg Cap) 60 mg PO QAM ALEX Stop: 06/17/24 08:59 Last Admin: 05/18/24 09:01 Dose: 60 mg Enoxaparin Sodium (Enoxaparin Inj 40 Mg/0.4 Ml Syr) 40 mg SQ Q24H ALEX Stop: 06/17/24 05:59 Last Admin: 05/18/24 06:11 Dose: 40 mg Fluticasone Propionate (Fluticasone Propionate Na Spr 16 Gm Btl) 2 sprays NA DAILY PRN PRN Reason: Allergy Symptoms Stop: 06/16/24 21:39 Hydromorphone HCl (Hydromorphone Inj 0.5 Mg/0.5 Ml Syr) 0.5 mg IV Q4 PRN PRN Reason: Pain Stop: 05/31/24 21:39 Last Admin: 05/18/24 10:21 Dose: 0.5 mg Lactated Ringer's (Lr) 1,000 mls @ 200 mls/hr IV .Q5H ALEX Stop: 05/19/24 03:59 Last Admin: 05/18/24 10:30 Dose: 200 mls/hr Linaclotide (Linaclotide 145 Mcg Capsule) 290 mcg PO DAILYBB ALEX Stop: 06/17/24 06:29 Last Admin: 05/18/24 06:18 Dose: Not Given Ondansetron HCl (Ondansetron 4 Mg Od Tab) 4 mg PO Q6H PRN PRN Reason: nausea and vomiting Stop: 06/16/24 21:39 Last Admin: 05/18/24 10:31 Dose: 4 mg Pantoprazole Sodium (Pantoprazole 40 Mg Tab) 40 mg PO BID [facility] Stop: 06/17/24 08:59 Last Admin: 05/18/24 09:01 Dose: 40 mg Polyethylene Glycol (Polyethylene (Miralax) 17 Gm Pack) 17 gm PO DAILY PRN PRN Reason: Constipation Stop: 06/16/24 21:39 Trazodone HCl (Trazodone Hcl 100 Mg Tab) 100 mg PO HS ALEX Stop: 06/16/24 21:39 Last Admin: 05/17/24 22:24 Dose: 100 mg Pending Studies at Discharge: Yes Stand-Alone Forms: On License Of [facility] Skilled Items Patient informed of condition?: Yes DNR: No Discharge Level of Care: Other Communicable Disease: No Discharge Prognosis: Other Lines: Peripheral IV Urinary Catheter: No Medications and DC Order Prescriptions: Continued duloxetine [Cymbalta] 60 mg Capsule,Delayed Release(Dr/Ec) 60 mg PO QAM trazodone 100 mg tablet 100 mg PO HS fluticasone propionate 50 mcg/actuation Soldier,Suspension 2 spray INTRANASAL DAILY PRN (Reason: Allergy Symptoms) Rx Instructions: as needed loratadine [Claritin] 10 mg Tablet 10 mg PO QAM PRN (Reason: Allergic Symptoms) buspirone 15 mg tablet 15 mg PO AMHS Linzess 290 mcg capsule 290 mcg PO DAILYBB pantoprazole 40 mg tablet,delayed release (DR/EC) 40 mg PO QAM oxycodone 5 mg Tablet 5 mg PO Q4H PRN (Reason: pain) Qty: 7 0RF ondansetron 4 mg tablet,disintegrating 4 mg PO Q6H PRN (Reason: nausea and vomiting) Qty: 12 0RF Discharge Orders: Discharge Order (Routine); Ordered 05/18/24 Ordered By: Martinez Jackson Admission Data Admit Date/Time: 05/17/24 20:58 Attending Provider: Martinez Jackson Admit Provider: Margaria,Loy J. Primary Care Provider: Williams Hauser Other Providers: Loy Gibson; Alonso Garcia
[2024-05-20 11:36] LABS: Marijuana Quant, GCMS Urine 630 ng/mL (<5)
== END 2024-05-18 14:30 | disposition short-term general hospital (02) | DRG 438 ==
LOC: ED 18:06 → EDINP 20:58 → SUATTDRO 20:58 → EDINP 21:41

== ENCOUNTER 2024-06-04 17:50 | Inpatient (IN) ==
[2024-06-04 18:38] LABS: Basophils # (auto) 0.08 K/uL (0.00-0.20); Basophils % (auto) 0.8 %; Eosinophils # (auto) 0.28 K/uL (0.00-0.50); Eosinophils % (auto) 2.9 %; Hematocrit (blood only) 41.4 % (37.0-47.0); Hemoglobin 13.9 g/dl (12.0-16.0); Immature Granulocytes # (auto) 0.02 K/uL (0.01-0.20); Immature Granulocytes % (auto) 0.2 %; Lymphocytes # (auto) 1.51 K/uL (1.20-3.40); Lymphocytes % (auto) 15.8 %; Mean Corpuscular Hemoglobin 31.2 pg (25.0-34.0); Mean Corpuscular Hgb Conc 33.6 g/dL (32.0-36.0); Mean Corpuscular Volume 92.8 fL (80.0-100.0); Monocytes # (auto) 0.76 K/uL (0.11-0.59); Monocytes % (auto) 7.9 %; Neutrophils # (auto) 6.91 K/uL (1.40-6.50); Neutrophils % (auto) 72.4 %; Platelet Count 394 K/uL (130-400); RDW Coefficient of Variation 12.3 % (11.5-14.5); RDW Standard Deviation 42.4 fL (36.4-46.3); Red Blood Count 4.46 M/uL (4.20-5.40); White Blood Count 9.56 K/ul (4.8-10.8)
--- NOTE | 2024-06-04 18:41 | Emergency Department Note ---
Impression & Plan Acute on chronic pancreatitis, Elevated lipase ED Provider Note HISTORY OF PRESENT ILLNESS: Patient is a 38-year-old female presenting with abdominal pain and nausea. Patient reports that she was diagnosed with chronic pancreatitis and had a stent placed over 2 weeks ago. She states that she been doing well for the last 2 weeks up until about 48 hours ago when she started develop an aching and gnawing pain in her upper abdomen. Also was complaining of pain in her right lower quadrant. Reports an abdominal surgical history significant for hysterectomy and cholecystectomy. She denies any fevers. Reports nausea but denies any vomiting. Reports she is constipated. She denies any chest pain or shortness of breath. Reports that she tried taking oxycodone that was prescribed to her postoperatively, but it did not help her symptoms. She reports that she has had a decreased appetite for the last 3 days, as eating makes her pain worse. ROS: as above PHYSICAL EXAM: Constitutional: Patient appears in no distress. HENT: Head: Normocephalic and atraumatic. Eyes: EOMI, PERRL Mouth/Throat: Mucous membranes moist. Neck: Trachea midline. Neck supple. Cardiovascular: RRR, No murmurs, rubs or gallops. Intact distal pulses. Pulmonary/Chest: No respiratory distress. Breath sounds clear and equal bilaterally. No wheezes or rales. Abdominal: Abdomen soft, no rebound or guarding. Epigastric TTP Musculoskeletal: No edema, tenderness or deformity noted. Skin: Warm and dry. No rash, erythema, pallor or cyanosis Psychiatric: Appropriate mood and affect for situation. Neurological: Alert and keenly responsive. CN II-XII grossly intact, moving all extremities equally and fully. MDM: - Vitals signs showed tachycardia - History obtained via patient. History as above. - Chronic conditions affecting care: pancreatitis; obesity; GERD; depression/anxiety - Differential diagnoses include, but are not limited to: Choledocholithiasis; pancreatitis; occluded pancreatic stent; ACS; viral syndrome - Order placed for continuous cardiac monitoring. At this time, monitor showed rate of 83 bpm with normal sinus rhythm, per my interpretation. - External medical records reviewed. Discharge summary dated 05/18/2024 was reviewed. Patient was admitted at that time secondary to necrotizing pancreatitis that was believed to be a complication of her ERCP/stent placement. She was admitted for pain management and IV fluids. Patient was transferred to tertiary care facility in [place]. Gastroenterology office visit note dated 05/24/2024 was reviewed. Patient was seen for a follow-up posthospitalization. She underwent an EUS/ERCP with Dr. Garcia on 05/10/2024. Findings were "consistent with pancreas divisum. Sphincterectomy performed and a stent was placed in the minor papilla." 5 days postoperatively, the patient presented to [facility] emergency department with severe abdominal pain. Her lipase was 657 and her white count was over 19,000. CT abdomen/pelvis showed a pancreatic stent and concern for acute pancreatitis in the region of the pancreatic head. She was discharged home on 05/15/2024. She had an MRCP which showed findings concerning for necrotizing pancreatitis and patient was transferred to [facility] in 05/18/2024. She is again treated with IV fluids and pain control. Antibiotics were deferred. She made improvement and was discharged on 05/21/2024. She is scheduled for repeat ERCP on 08/18/2024. - EKG image interpreted by myself showed normal sinus rhythm. Rate 64 bpm. QT 410. No acute ischemic events. - Laboratory workup interpreted by myself showed normal WBC; normal PT/INR; normal lactate; stable electrolytes; normal AST/ALT; normal troponin; normal total bilirubin; negative hCG; elevated lipase (393) - UA negative for infection - CT abdomen/pelvis with IV contrast negative for acute pathology. Pancreatic duct stent with pigtail in the duodenal lumen. Common bile duct is dilated at 1.3 cm and tapers distally but no obstructing stone or mass is visible. Recommended correlation with biliary enzyme levels. - Patient given 1L NS, 4 mg IV zofran and 4 mg IV morphine on arrival for symptomatic management. - On reassessment, patient reports that pain is recurring. She reports that the morphine initially helped, but the pain intensity has returned. - On review of [facility] chart, the patient had a lipase in the 140s earlier this week. Given her elevated lipase level and continued pain, will admit to hospitalist service - Discussion was had with leather case finisher about patient's case and need for admission - Hospitalist, Dr. Chu, consulted for admission - Patient admitted to [facility] hospitalist service for further evaluation and management. ASSESSMENT AND PLAN: Diagnosis: Acute on chronic pancreatitis; elevated lipase Plan: Admit Past Med/Surg History Problem List (Updated 06/04/24 @ 20:19 by Bev Waters MD) Elevated lipase (Acute) Acute on chronic pancreatitis (Acute) Abdominal pain (Acute) Pancreatitis (Acute) Pancreatic divisum Post-ERCP acute pancreatitis Leukocytosis (Acute) Pancreatitis (Acute) Abdominal pain (Acute) Enteritis (Acute) Pancreatitis (Acute) Epigastric abdominal pain (Acute) GERD (gastroesophageal reflux disease) Medical marijuana use Abdominal pain, acute (Acute) Acute pancreatitis (Acute) Pain at surgical site H/O umbilical hernia repair (02/20/21) Open Umbilical Hernia Repair- Al Lizama DO, FACS 02/20/2021 Obesity (BMI 30.0-34.9) Hx laparoscopic cholecystectomy 08/22/2020 Dr. Garvin Umbilical hernia Anemia Allergic rhinitis Endometriosis (Chronic) Chronic pelvic pain in female S/P laparoscopic hysterectomy S/P unilateral salpingo-oophorectomy Encounter for pre-operative examination Medical History History of stomach ulcers Depression Anxiety Surgical History History of colonoscopy History of hysterectomy with unilateral oophorectomy d/t endometriosis (right removed) History of bilateral tubal ligation History of dilatation and curettage History of esophagogastroduodenoscopy (EGD) History of tooth extraction Family History Mother Family history of reaction to anesthesia SLOW TO WAKE UP Diabetes Lung cancer Father Cerebral aneurysm Social History Smoking Status: Never smoker Second Hand Exposure: No; Do You Dip or Chew Tobacco: No; Hx Alcohol Use: No Hx Substance Use: No Preferred Language: Sudanese Communication Ability: Effective Supervisor Correspondence Section Required: No Beliefs That Will Affect Care: None marital status: Single Current Living Situation: Spouse Current Living Situation Comment: Lives with fiance and DAUGHTER current occupational status: unemployed and disabled current occupation: HAS NOT WORKED 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 How many Children do You have: 2 Feels Safe at Home: Yes during the past year weight has: decreased > 10 lbs Assistive Devices: None Allergies Allergies Allergy/AdvReac Type Severity Reaction Status Date / Time clindamycin Allergy Intermediate muscle Verified 06/04/24 20:11 aches/metal taste in mouth Penicillins Allergy Unknown UNKNOWN, Verified 06/04/24 20:11 CHILD ALLERGY doxycycline AdvReac Mild Metallic Verified 06/04/24 20:11 Taste Home Meds Home Medications Medication Instructions Recorded Confirmed duloxetine 60 mg capsule,delayed 60 mg PO QAM 03/01/19 06/04/24 release (Cymbalta) fluticasone propionate 50 2 spray intranasal DAILY PRN 08/14/20 06/04/24 mcg/actuation nasal Allergy Symptoms spray,suspension loratadine 10 mg tablet (Claritin) 10 mg PO QAM PRN Allergic Symptoms 08/14/20 06/04/24 trazodone 100 mg tablet 100 mg PO HS 06/26/22 06/04/24 buspirone 15 mg tablet 15 mg PO AMHS 05/11/24 06/04/24 linaclotide 290 mcg capsule 290 mcg PO DAILYBB 05/11/24 06/04/24 (Linzess) pantoprazole 40 mg tablet,delayed 40 mg PO QAM 05/11/24 06/04/24 release famotidine 20 mg tablet 20 mg PO HS 06/04/24 06/04/24 Previous Rx's Medication Instructions Recorded ondansetron 4 mg disintegrating 4 mg PO Q6H PRN nausea and 07/20/23 tablet vomiting #12 tabs oxycodone 5 mg tablet 5 mg PO Q4H PRN pain #7 tabs 05/15/24 Results & Data (ED) Vital Signs Vital Signs - 24 hr 06/04/24 17:53 06/04/24 19:04 06/04/24 19:50 Temperature 36.8 C Temperature Source Temporal Artery Scan Pulse Rate 92 H Pulse Rate [Finger] 69 Respiratory Rate 20 19 Respiratory Effort / Characteristics Non-Labored Spontaneous Non-Labored Spontaneous Respiratory Depth Normal Normal Respiratory Pattern Regular Regular Blood Pressure 122/85 Blood Pressure [Right Arm] 128/95 Blood Pressure Mean 97 Blood Pressure Mean [Right Arm] 106 Pulse Oximetry 99 94 99 Oxygen Delivery Method Room Air Room Air Room Air Sepsis Recent Fever Within 48 Hours No Sepsis New/Unexplained Change in Mental Status N/A Sepsis Action Taken by Nursing No Action Required 06/04/24 20:07 Temperature Temperature Source Pulse Rate 83 Pulse Rate [Finger] Respiratory Rate Respiratory Effort / Characteristics Respiratory Depth Respiratory Pattern Blood Pressure Blood Pressure [Right Arm] Blood Pressure Mean Blood Pressure Mean [Right Arm] Pulse Oximetry Oxygen Delivery Method Sepsis Recent Fever Within 48 Hours Sepsis New/Unexplained Change in Mental Status Sepsis Action Taken by Nursing Laboratory Data 06/04/24 18:08 06/04/24 18:08 Lab Results 06/04/24 06/04/24 06/04/24 Range/Units 18:08 18:09 18:47 WBC 9.56 (4.8-10.8) K/ul RBC 4.46 (4.20-5.40) M/uL Hgb 13.9 (12.0-16.0) g/dl Hct 41.4 (37.0-47.0) % MCV 92.8 (80.0-100.0) fL MCH 31.2 (25.0-34.0) pg MCHC 33.6 (32.0-36.0) g/dL RDW Std Deviation 42.4 (36.4-46.3) fL RDW Coeff of Leopoldo 12.3 (11.5-14.5) % Plt Count 394 (130-400) K/uL MPV 9.0 L (9.4-12.4) fL Immature Gran % (Auto) 0.2 % Neut % (Auto) 72.4 % Lymph % (Auto) 15.8 % Dent % (Auto) 7.9 % Eos % (Auto) 2.9 % Baso % (Auto) 0.8 % Neut # (Auto) 6.91 H (1.40-6.50) K/uL Lymph # (Auto) 1.51 (1.20-3.40) K/uL Dent # (Auto) 0.76 H (0.11-0.59) K/uL Eos # (Auto) 0.28 (0.00-0.50) K/uL Baso # (Auto) 0.08 (0.00-0.20) K/uL Immature Gran # (Auto) 0.02 (0.01-0.20) K/uL PT 10.5 (9.0-12.0) Seconds INR 1.0 (0.9-1.1) Sodium 135 L (136-145) mmol/L Potassium 4.2 (3.5-5.1) mmol/L Chloride 101 (98-107) mmol/L Carbon Dioxide 32 (21-32) mmol/L Anion Gap 2 L (3-11) BUN 15 (6-23) mg/dl Creatinine 0.76 (0.6-1.2) mg/dl Est Cr Clr Drug Dosing Not Reportable eGFR 102.16 BUN/Creatinine Ratio 19.7 (10-20) Glucose 97 (70-99(Fasting)) mg/dl Lactate 1.0 (0.4-2.0) mmol/L Calcium 9.8 (8.6-10.3) mg/dl Total Bilirubin 0.4 (0.2-1.0) mg/dl AST 19 (13-39) U/L ALT 18 (7-52) U/L Alkaline Phosphatase 85 (34-104) U/L Troponin I High Sens < 2.3 (0-14) pg/ml Total Protein 7.3 (6.0-8.3) gm/dl Albumin 4.5 (3.4-5.0) gm/dl Globulin 2.8 (2.5-4.0) gm/dl Albumin/Globulin Ratio 1.6 (0.9-2) Lipase 393 H (11-82) U/L HCG, Qual Negative (Negative) Urine Color Yellow Urine Appearance Clear (Clear) Urine pH 6.0 (4.5-7.5) Ur Specific [place] 1.009 (1.000-1.030) Urine Protein Negative (Negative) Urine Glucose (UA) Negative (Negative) Urine Ketones Negative (Negative) Urine Blood Negative (Negative) Urine Nitrite Negative (Negative) Urine Bilirubin Negative (Negative) Urine Urobilinogen Negative (Negative) Ur Leukocyte Esterase Negative (Negative) Administered Medications Discontinued Medications Hydromorphone HCl (Hydromorphone Inj 0.5 Mg/0.5 Ml Syr) 0.5 mg IV NOW STA Stop: 06/04/24 19:57 Last Admin: 06/04/24 20:03 Dose: 0.5 mg Documented By: YESIKA Sodium Chloride (Nss) 1,000 mls @ 999 mls/hr IV .Q1H1M ONE Stop: 06/04/24 19:38 Last Infusion: 06/04/24 19:56 Dose: Infused Documented By: Admin: 03/08/25 18:52 Dose: 999 mls/hr Documented By: YESIKA Ioversol (Optiray 320 100ml) 93 ml IV ONCE ONE Stop: 06/04/24 19:36 Last Admin: 06/04/24 19:36 Dose: 93 ml Documented By: ATIF Morphine Sulfate (Morphine Sulfate 4 Mg/Ml 1 Ml Carp\\Vial) 4 mg IV NOW STA Stop: 06/04/24 18:39 Last Admin: 06/04/24 18:52 Dose: 4 mg Documented By: BS Ondansetron HCl (Ondansetron Inj 2 Mg/Ml 2 Ml Vial) 4 mg IV NOW STA Stop: 06/04/24 18:39 Last Admin: 06/04/24 18:51 Dose: 4 mg Documented By: YESIKA Imaging Data Radiologist's Impression: Abdomen/Pelvis CT 06/04/24 18:55 HISTORY: Epigastric abdominal pain TECHNIQUE: CT of the abdomen pelvis with contrast. 93 cc of Optiray 320 IV contrast was administered. Images are presented in axial, sagittal, and coronal reformats. COMPARISON: Abdominal MRI dated 05/18/2024. FINDINGS: Mild atelectasis at the lung bases. The liver is unremarkable. The gallbladder is surgically absent. A stent is present extending along the main pancreatic duct into the duodenum. Mild intra and extrahepatic biliary ductal dilation. Common bile duct measuring up to 1.3 cm in diameter on series 300 image 59. The distal common bile duct tapers. No filling defect in the distal common bile duct.7 The spleen and adrenal glands are unremarkable. The pancreatic parenchyma is unremarkable. The kidneys are unremarkable. Distal esophagus and stomach are unremarkable. The pigtail from the pancreatic duct stent is present in the duodenal lumen. The small bowel loops are normal in caliber. A normal caliber appendix is identified in the right pelvis. The colon is normal in caliber. No ascites or pneumoperitoneum. No abdominal aortic aneurysm. There is a retroaortic left renal vein. Urinary bladder is unremarkable. The uterus is absent. Small follicles are functional cysts in the left ovary. The largest measuring up to 2.3 cm. These require no follow-up. No free pelvic fluid. The soft tissues of the body wall are unremarkable. No acute osseous abnormality.Mild IMPRESSION: 1. No acute findings in the abdomen or pelvis. 2. Pancreatic duct stent with pigtail in the duodenal lumen. 3. Postsurgical changes of cholecystectomy. Mild intra and extrahepatic biliary ductal dilation is nonspecific and can be a common incidental finding following cholecystectomy. Common bile duct measuring up to 1.3 cm in diameter and tapers distally. No obstructing stone or mass is visible in the distal common bile duct. Recommend correlation with biliary enzyme levels. 4. Additional chronic and/or incidental findings as detailed above. Electronically signed by Williams Melendez 06-04-2024 7:55 PM Discharge Plan Visit Data Chief Complaint: Abdominal Pain Stated Complaint: PANCREATITIS ED Provider: Bev Waters Discharge Problem: Acute on chronic pancreatitis, Elevated lipase Forms Stand Alone Forms: [facility] Prescriptions Prescriptions: No Action duloxetine [Cymbalta] 60 mg Capsule,Delayed Release(Dr/Ec) 60 mg PO QAM trazodone 100 mg tablet 100 mg PO HS fluticasone propionate 50 mcg/actuation [place],Suspension 2 spray INTRANASAL DAILY PRN (Reason: Allergy Symptoms) Rx Instructions: as needed loratadine [Claritin] 10 mg Tablet 10 mg PO QAM PRN (Reason: Allergic Symptoms) buspirone 15 mg tablet 15 mg PO AMHS Linzess 290 mcg capsule 290 mcg PO DAILYBB pantoprazole 40 mg tablet,delayed release (DR/EC) 40 mg PO QAM oxycodone 5 mg Tablet 5 mg PO Q4H PRN (Reason: pain) Qty: 7 0RF ondansetron 4 mg tablet,disintegrating 4 mg PO Q6H PRN (Reason: nausea and vomiting) Qty: 12 0RF famotidine 20 mg Tablet 20 mg PO HS Referrals Referrals: Williams Hauser MD [Primary Care Provider] -
[2024-06-04] MEDS: ONDANSETRON INJ 2 MG/ML 2 ML VIAL IV STA (18:51)
[2024-06-04 18:52] LABS: Alanine Aminotransferase 18 U/L (7-52); Albumin Globulin Ratio 1.6 (0.9-2); Albumin Level 4.5 gm/dl (3.4-5.0); Alkaline Phosphatase 85 U/L (34-104); Anion Gap 2 (3-11); Aspartate Aminotransferase 19 U/L (13-39); BUN Creatinine Ratio 19.7 (10-20); Bilirubin,Total 0.4 mg/dl (0.2-1.0); Blood Urea Nitrogen 15 mg/dl (6-23); Calcium 9.8 mg/dl (8.6-10.3); Carbon Dioxide 32 mmol/L (21-32); Chloride 101 mmol/L (98-107); Globulin 2.8 gm/dl (2.5-4.0); Glucose 97 mg/dl (70-99(Fasting)); Lipase 393 U/L (11-82); Potassium 4.2 mmol/L (3.5-5.1); Sodium 135 mmol/L (136-145); Total Protein 7.3 gm/dl (6.0-8.3)
[2024-06-04] MEDS: SODIUM CHLORIDE 0.9% 1,000 ML IV ONE (18:52)
[2024-06-04] MEDS: MoRPHine SULFATE 4 MG/ML 1 ML CARP\\VIAL IV STA (18:52)
[2024-06-04 18:53] LABS: Pregnancy Test, Serum Negative (Negative)
[2024-06-04 18:58] LABS: Troponin I High Sensitivity < 2.3 pg/ml (0-14)
[2024-06-04 19:04] LABS: Prothrombin Time 10.5 Seconds (9.0-12.0)
[2024-06-04] MEDS: OPTIRAY 320 100ml IV ONE (19:36)
[2024-06-04 19:45] LABS: Appearance Urine Clear (Clear); Bilirubin Urine Negative (Negative); Blood Urine Negative (Negative); Color Urine Yellow; Glucose Urine UA Negative (Negative); Ketones Urine Negative (Negative); Leukocyte Esterase Urine Negative (Negative); Nitrite Urine Negative (Negative); Protein Urine Negative (Negative); Specific Gravity Urine 1.009 (1.000-1.030); Urobilinogen Urine Negative (Negative)
--- NOTE | 2024-06-04 19:55 | CT Scan Report ---
HISTORY: Epigastric abdominal pain TECHNIQUE: CT of the abdomen pelvis with contrast. 93 cc of Optiray 320 IV contrast was administered. Images are presented in axial, sagittal, and coronal reformats. COMPARISON: Abdominal MRI dated 05/18/2024. FINDINGS: Mild atelectasis at the lung bases. The liver is unremarkable. The gallbladder is surgically absent. A stent is present extending along the main pancreatic duct into the duodenum. Mild intra and extrahepatic biliary ductal dilation. Common bile duct measuring up to 1.3 cm in diameter on series 300 image 59. The distal common bile duct tapers. No filling defect in the distal common bile duct.7 The spleen and adrenal glands are unremarkable. The pancreatic parenchyma is unremarkable. The kidneys are unremarkable. Distal esophagus and stomach are unremarkable. The pigtail from the pancreatic duct stent is present in the duodenal lumen. The small bowel loops are normal in caliber. A normal caliber appendix is identified in the right pelvis. The colon is normal in caliber. No ascites or pneumoperitoneum. No abdominal aortic aneurysm. There is a retroaortic left renal vein. Urinary bladder is unremarkable. The uterus is absent. Small follicles are functional cysts in the left ovary. The largest measuring up to 2.3 cm. These require no follow-up. No free pelvic fluid. The soft tissues of the body wall are unremarkable. No acute osseous abnormality.Mild IMPRESSION: 1. No acute findings in the abdomen or pelvis. 2. Pancreatic duct stent with pigtail in the duodenal lumen. 3. Postsurgical changes of cholecystectomy. Mild intra and extrahepatic biliary ductal dilation is nonspecific and can be a common incidental finding following cholecystectomy. Common bile duct measuring up to 1.3 cm in diameter and tapers distally. No obstructing stone or mass is visible in the distal common bile duct. Recommend correlation with biliary enzyme levels. 4. Additional chronic and/or incidental findings as detailed above. Electronically signed by Williams Melendez 06-04-2024 7:55 PM
[2024-06-04] MEDS: HYDROmorphone INJ 0.5 MG/0.5 ML SYR IV STA (20:03)
[2024-06-04] MEDS ORDERED: ACETAMINOPHEN 325 MG TAB PO PRN (20:09)
[2024-06-04] MEDS ORDERED: PROMETHAZINE 6.25 MG/50.25 ML BAG IV PRN (20:09)
[2024-06-04] MEDS: LACTATED RINGER'S 1,000 ML IV ONE (20:50)
--- NOTE | 2024-06-04 22:27 | History & Physical Report ---
Date of Service June 04, 2024 Assessment & Plan (1) Pancreatitis: Plan: Recurrent pancreatitis History of pancreatic divisum hx NAFLD GERD status post surgery anxiety/mood disorder stable past tobacco abuse Admit to medical unit Analgesia, IVF, clear liquids GI consult re: recurrent pancreatitis DVT prophylaxis. Lovenox subcu Full code Text document was generated using [employer] voice recognition software. It may contain grammatical or spelling errors. Kindly contact undersigned for clarification of any documentation item in question. History of Present Illness Chief Complaint: Abdominal pain Primary Care Provider: Williams Hauser MD History obtained from patient and records. Medical history significant for recurrent pancreatitis, pancreatic divisum as per records, NAFLD, GERD status post surgery, IBS constipation predominant, anxiety/mood disorder, past tobacco abuse. 2 [facility] admissions last month for recurrent pancreatitis. Recent overnight admission May 17 to 2023 for necrotizing pancreatitis Patient transferred to [facility] where she stayed for 3 days. No procedures done during stay. Repeat ERCP contemplated August 18, 2024 as per records. 2 days ago, patient noted achy upper abdominal pain reminiscent of pancreatitis attack. Some nausea without emesis. Dark brown stools. No fever, no chills. Denies fatty food or alcohol intake. 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 Allergies Allergy/AdvReac Type Severity Reaction Status Date / Time clindamycin Allergy Intermediate muscle Verified 06/04/24 20:11 aches/metal taste in mouth Penicillins Allergy Unknown UNKNOWN, Verified 06/04/24 20:11 CHILD ALLERGY doxycycline AdvReac Mild Metallic Verified 06/04/24 20:11 Taste Home Medications Medication Instructions Recorded Confirmed Type duloxetine 60 mg capsule,delayed 60 mg PO QAM 03/01/19 06/04/24 History release (Cymbalta) fluticasone propionate 50 2 spray intranasal DAILY PRN 08/14/20 06/04/24 History mcg/actuation nasal Allergy Symptoms spray,suspension loratadine 10 mg tablet (Claritin) 10 mg PO QAM PRN Allergic Symptoms 08/14/20 06/04/24 History trazodone 100 mg tablet 100 mg PO HS 06/26/22 06/04/24 History ondansetron 4 mg disintegrating 4 mg PO Q6H PRN nausea and 07/20/23 06/04/24 Rx tablet vomiting #12 tabs buspirone 15 mg tablet 15 mg PO AMHS 05/11/24 06/04/24 History linaclotide 290 mcg capsule 290 mcg PO DAILYBB 05/11/24 06/04/24 History (Linzess) pantoprazole 40 mg tablet,delayed 40 mg PO QAM 05/11/24 06/04/24 History release oxycodone 5 mg tablet 5 mg PO Q4H PRN pain #7 tabs 05/15/24 06/04/24 Rx famotidine 20 mg tablet 20 mg PO HS 06/04/24 06/04/24 History Past Med/Surg History Problem List (Updated 06/04/24 @ 20:19 by Bev Waters MD) Elevated lipase (Acute) Acute on chronic pancreatitis (Acute) Abdominal pain (Acute) Pancreatitis (Acute) Pancreatic divisum Post-ERCP acute pancreatitis Leukocytosis (Acute) Pancreatitis (Acute) Abdominal pain (Acute) Enteritis (Acute) Pancreatitis (Acute) Epigastric abdominal pain (Acute) GERD (gastroesophageal reflux disease) Medical marijuana use Abdominal pain, acute (Acute) Acute pancreatitis (Acute) Pain at surgical site H/O umbilical hernia repair (02/20/21) Open Umbilical Hernia Repair- Al Lizama DO, FACS 02/20/2021 Obesity (BMI 30.0-34.9) Hx laparoscopic cholecystectomy 08/22/2020 Dr. Garvin Umbilical hernia Anemia Allergic rhinitis Endometriosis (Chronic) Chronic pelvic pain in female S/P laparoscopic hysterectomy S/P unilateral salpingo-oophorectomy Encounter for pre-operative examination Medical History History of stomach ulcers Depression Anxiety Surgical History History of colonoscopy History of hysterectomy with unilateral oophorectomy d/t endometriosis (right removed) History of bilateral tubal ligation History of dilatation and curettage History of esophagogastroduodenoscopy (EGD) History of tooth extraction Family History Mother Family history of reaction to anesthesia SLOW TO WAKE UP Diabetes Lung cancer Father Cerebral aneurysm Social History Smoking Status: Never smoker Second Hand Exposure: No; Do You Dip or Chew Tobacco: No; Hx Alcohol Use: No Hx Substance Use: No Preferred Language: Burmese Communication Ability: Effective Business Intelligence Administrator Required: No Beliefs That Will Affect Care: None marital status: Single Current Living Situation: Spouse Current Living Situation Comment: Lives with fiance and DAUGHTER current occupational status: unemployed and disabled current occupation: HAS NOT WORKED 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 How many Children do You have: 2 Other Information That Helps Us Care for You: No Feels Safe at Home: Yes Safety Concerns: Feels Safe At This Time during the past year weight has: decreased > 10 lbs Assistive Devices: None Review of Systems Review of Systems: As per HPI, all other systems reviewed and negative Physical Exam Physical Exam: GENERAL: Slightly uncomfortable, pleasant, no respiratory distress SKIN: Normal color, warm HEENT: [place] palpebral conjunctivae, no ptosis, dry buccal mucosa NECK : Supple, no tenderness CHEST : CTA, no tenderness HEART : RRR, no obvious murmurs ABDOMEN: Some distention, epigastric tenderness EXTREMITIES : No LE swelling/tenderness, no other conspicuous deformities noted NEUROLOGIC : Coherent, no facial asymmetry, no other gross focality Results & Data Results & Data Vital Signs (Past 12 Hours) Vital Signs Temp Pulse Pulse Resp BP BP Pulse Ox 06/04/24 21:15 67 14 95 06/04/24 20:57 71 15 120/81 97 06/04/24 20:45 84 21 97 06/04/24 20:12 76 22 95 06/04/24 20:07 83 06/04/24 19:50 69 19 128/95 99 06/04/24 19:04 94 06/04/24 17:53 36.8 C 92 H 20 122/85 99 O2 Del Method 06/04/24 21:15 06/04/24 20:57 06/04/24 20:45 06/04/24 20:12 06/04/24 20:07 06/04/24 19:50 Room Air 06/04/24 19:04 Room Air 06/04/24 17:53 Room Air Laboratory Results Laboratory Results WBC 9.56 K/ul (4.8-10.8) 06/04/24 18:08 RBC 4.46 M/uL (4.20-5.40) 06/04/24 18:08 Hgb 13.9 g/dl (12.0-16.0) 06/04/24 18:08 Hct 41.4 % (37.0-47.0) 06/04/24 18:08 MCV 92.8 fL (80.0-100.0) 06/04/24 18:08 MCH 31.2 pg (25.0-34.0) 06/04/24 18:08 MCHC 33.6 g/dL (32.0-36.0) 06/04/24 18:08 RDW Std Deviation 42.4 fL (36.4-46.3) 06/04/24 18:08 RDW Coeff of Leopoldo 12.3 % (11.5-14.5) 06/04/24 18:08 Plt Count 394 K/uL (130-400) 06/04/24 18:08 MPV 9.0 fL (9.4-12.4) L 06/04/24 18:08 Immature Gran % (Auto) 0.2 % 06/04/24 18:08 Neut % (Auto) 72.4 % 06/04/24 18:08 Lymph % (Auto) 15.8 % 06/04/24 18:08 [place] % (Auto) 7.9 % 06/04/24 18:08 Eos % (Auto) 2.9 % 06/04/24 18:08 Baso % (Auto) 0.8 % 06/04/24 18:08 Neut # (Auto) 6.91 K/uL (1.40-6.50) H 06/04/24 18:08 Lymph # (Auto) 1.51 K/uL (1.20-3.40) 06/04/24 18:08 [place] # (Auto) 0.76 K/uL (0.11-0.59) H 06/04/24 18:08 Eos # (Auto) 0.28 K/uL (0.00-0.50) 06/04/24 18:08 Baso # (Auto) 0.08 K/uL (0.00-0.20) 06/04/24 18:08 Immature Gran # (Auto) 0.02 K/uL (0.01-0.20) 06/04/24 18:08 PT 10.5 Seconds (9.0-12.0) 06/04/24 18:08 INR 1.0 (0.9-1.1) 06/04/24 18:08 Sodium 135 mmol/L (136-145) L 06/04/24 18:08 Potassium 4.2 mmol/L (3.5-5.1) 06/04/24 18:08 Chloride 101 mmol/L (98-107) 06/04/24 18:08 Carbon Dioxide 32 mmol/L (21-32) 06/04/24 18:08 Anion Gap 2 (3-11) L 06/04/24 18:08 BUN 15 mg/dl (6-23) 06/04/24 18:08 Creatinine 0.76 mg/dl (0.6-1.2) 06/04/24 18:08 Est Cr Clr Drug Dosing Not Reportable 06/04/24 18:08 eGFR 102.16 06/04/24 18:08 BUN/Creatinine Ratio 19.7 (10-20) 06/04/24 18:08 Glucose 97 mg/dl (70-99(Fasting)) 06/04/24 18:08 Lactate 1.0 mmol/L (0.4-2.0) 06/04/24 18:47 Calcium 9.8 mg/dl (8.6-10.3) 06/04/24 18:08 Total Bilirubin 0.4 mg/dl (0.2-1.0) 06/04/24 18:08 AST 19 U/L (13-39) 06/04/24 18:08 ALT 18 U/L (7-52) 06/04/24 18:08 Alkaline Phosphatase 85 U/L (34-104) 06/04/24 18:08 Troponin I High Sens < 2.3 pg/ml (0-14) 06/04/24 18:08 Total Protein 7.3 gm/dl (6.0-8.3) 06/04/24 18:08 Albumin 4.5 gm/dl (3.4-5.0) 06/04/24 18:08 Globulin 2.8 gm/dl (2.5-4.0) 06/04/24 18:08 Albumin/Globulin Ratio 1.6 (0.9-2) 06/04/24 18:08 Lipase 393 U/L (11-82) H 06/04/24 18:08 HCG, Qual Negative (Negative) 06/04/24 18:08 Urine Color Yellow 06/04/24 18:09 Urine Appearance Clear (Clear) 06/04/24 18:09 Urine pH 6.0 (4.5-7.5) 06/04/24 18:09 Ur Specific [place] 1.009 (1.000-1.030) 06/04/24 18:09 Urine Protein Negative (Negative) 06/04/24 18:09 Urine Glucose (UA) Negative (Negative) 06/04/24 18:09 Urine Ketones Negative (Negative) 06/04/24 18: Urine Blood Negative (Negative) 06/04/24 18:09 Urine Nitrite Negative (Negative) 06/04/24 18:09 Urine Bilirubin Negative (Negative) 06/04/24 18:09 Urine Urobilinogen Negative (Negative) 06/04/24 18:09 Ur Leukocyte Esterase Negative (Negative) 06/04/24 18:09 Impressions Abdomen/Pelvis CT 06/04/24 18:55 HISTORY: Epigastric abdominal pain TECHNIQUE: CT of the abdomen pelvis with contrast. 93 cc of Optiray 320 IV contrast was administered. Images are presented in axial, sagittal, and coronal reformats. COMPARISON: Abdominal MRI dated 05/18/2024. FINDINGS: Mild atelectasis at the lung bases. The liver is unremarkable. The gallbladder is surgically absent. A stent is present extending along the main pancreatic duct into the duodenum. Mild intra and extrahepatic biliary ductal dilation. Common bile duct measuring up to 1.3 cm in diameter on series 300 image 59. The distal common bile duct tapers. No filling defect in the distal common bile duct.7 The spleen and adrenal glands are unremarkable. The pancreatic parenchyma is unremarkable. The kidneys are unremarkable. Distal esophagus and stomach are unremarkable. The pigtail from the pancreatic duct stent is present in the duodenal lumen. The small bowel loops are normal in caliber. A normal caliber appendix is identified in the right pelvis. The colon is normal in caliber. No ascites or pneumoperitoneum. No abdominal aortic aneurysm. There is a retroaortic left renal vein. Urinary bladder is unremarkable. The uterus is absent. Small follicles are functional cysts in the left ovary. The largest measuring up to 2.3 cm. These require no follow-up. No free pelvic fluid. The soft tissues of the body wall are unremarkable. No acute osseous abnormality.Mild IMPRESSION: 1. No acute findings in the abdomen or pelvis. 2. Pancreatic duct stent with pigtail in the duodenal lumen. 3. Postsurgical changes of cholecystectomy. Mild intra and extrahepatic biliary ductal dilation is nonspecific and can be a common incidental finding following cholecystectomy. Common bile duct measuring up to 1.3 cm in diameter and tapers distally. No obstructing stone or mass is visible in the distal common bile duct. Recommend correlation with biliary enzyme levels. 4. Additional chronic and/or incidental findings as detailed above. Electronically signed by Williams Melendez 06-04-2024 7:55 PM Diagnostic Findings EKG as per my interpretation :Rate 65, NSR, normal axis, T wave flattening septal leads (1) Pancreatitis Acute pancreatitis complication: unspecified Chronicity: acute Pancreatitis type: unspecified pancreatitis type Qualified Code(s): K85.90 - Acute pancreatitis without necrosis or infection, unspecified
[2024-06-04] MEDS: oxyCODONE HCL IR 5 MG TAB (IMMEDIATE RELEASE) PO STA (22:49)
--- OUTSIDE RECORDS SUMMARY | 2024-06-04 23:23 | External Medical Summary | Summary of Care ---
Author Name Unknown Organization [facility] Address [address] [facility] [place] [address] Phone [phone] Care Team Providers Care Immigration Paralegal Name Role Phone Murtaza BENTON MD, Williams Payton Primary Care Provider [phone] Encounter Details Date Type Department Care Team (Late st Contact Info) Description 05/27/2024 Orders Only PATIENT PORTAL DO NOT DELETE THIS DEPT USED BY [place] [id number] Allergies Active Allergy Reactions Criticality Noted Date Comments Clindamycin Other (Please comment) 12/21/2014 Burned taste Muscle pain Doxycycline Low 08/22/2020 Other reaction(s): Metallic Taste Penicillins Unknown 10/07/2007 As a child Other reaction(s): UNKNOWN, CHILD ALLERGY documented as of this encounter (statuses as of 05/27/2024) Medications NATURAL SUPPLEMENT Take by mouth daily. Medical marijuana Active Loratadine 10 MG Oral Tablet Take 1 Tablet by mouth in the morning. Active Fluticasone Propionate 50 MCG/ACT Nasal Suspension Administer 1 [place] into nostril in the morning. Active Ondansetron HCl 4 MG Oral Tablet (Zofran)Indication s:Nausea and vomiting, intractability of vomiting not specified, unspecified vomiting type Take 1 Tablet by mouth every 6 hours as needed for Nausea. 30 Tablet 03/14/20 21 Active DULoxetine HCl 60 MG Oral Capsule [...] breakfast. 30 Capsule 3 04/15/19 25 Active Additional Information Patient not taking.Reported on 05/24/2024 busPIRone HCl 15 MG Oral Tablet (Buspar) TAKE 1 TABLET BY MOUTH EVERY MORNING AND 1 TAB AT BEDTIME 180 Tablet 2 04/22/19 25 Active Acetaminophen 325 MG Oral Tablet (Tylenol) Take 3 Tablets by mouth every 6 hours as needed for Fever >38C(100.5F), Pain, Mild or Pain, Moderate. 60 Tablet 05/21/19 Active Famotidine 20 MG Oral Tablet (Pepcid) Take 1 Tablet by mouth at bedtime. 30 Tablet 2 05/24/19 25 Active documented as of this encounter (statuses as of 05/27/2024) Active Problems Problem Noted Date Diagnosed Date Pancreatitis 05/18/2024 History of acute pancreatitis 04/14/2024 Pancreatic divisum [...] as of this encounter (statuses as of 05/27/2024) Resolved Problems Problem Noted Date Diagnosed Date [...] as of this encounter (statuses as of 05/27/2024) Immunizations Name Administration Dates Next Due HPV [...] have concerns for your saf ety? No 05/18/2024 Do you have concerns for you r family's safety? (Household - for ages 0-17 years) Not on file 05/18/2024 Utilities Answer Date Recorded Do you have trouble paying y our heating, water, or electric bill? Yes 05/18/2024 Is your family able to pay t he heat, water, or electric bill? (Household - for ages 0-17 years) Not on file 05/18/2024 Does your family have access to good internet? (Household - for ages 0-17 years) Not on file 05/18/2024 Employment Status Answer Date Recorded Are you [...] 18 years and over) Not on file 05/18/2024 Does your family have a hard time getting a ride to doctors visits? (Household - for ages 0-17 years) Not on file 05/18/2024 Has lack of transportation k ept you from medical appointments, meetings, work, or from getting things needed for daily living? Check all that apply. No 05/18/2024 Do you (or your family) have trouble finding or paying for a ride (transportation)? (Household - for ages 0-17 years) Not on file 05/18/2024 Housing Stability Answer Date Recorded Do you currently live in a s helter or have no steady place to sleep at night? No 05/18/2024 Do you think you are at risk of becoming homeless? (Adult - for ages 18 years and over) Not on file 05/18/2024 Does your family worry about paying for your home or becoming homeless? (Household - for ages 0-17 years) Not on file 0 05/18/2024 Are you homeless or worried that you might be in the future? No 05/18/2024 Are you (or your family) ctilaly eless or worried that you might be [...] the money to buy more. Never true 05/18/19 25 Within the past 12 months, t he food you bought just didn't last and you didn't have money to get more. Never true 05/18/2024 Do you need food for this week? No 05/18/2024 Comments No Sex and Gender Information Value Date Recorded Sex Assigned at Female 08/12/2018 11:00 AM EDT Legal Sex Female 5:51 AM EST Gender Identity Female 08/12/2018 11:00 AM EDT Sexual Orientation Straight 08/12/2018 11 :00 AM EDT documented as of this encounter Functional Status * Are you deaf or do you have serious difficulty hearing? Answer Date of Assessment Author No 05/18/2024 3:18 PM Davis Ogden ae, RN * Are you blind or do you have serious difficulty seeing, even when wearing glasses? Answer Date of Assessment Author No 05/18/2024 3:18 PM Davis Ogden ae, RN * Do you have serious difficulty walking or climbing stairs? (5 years old or older) Answer Date of Assessment Author No 05/18/2024 3:18 PM Davis Ogden ae, RN * Do you have difficulty dressing or bathing? (5 years old or older) Answer Date of Assessment Author No 05/18/2024 3:18 PM Davis Ogden ae, RN * Because of a physical, mental, or emotional condition, do you have difficulty doing errands alone such as visiting a doctors office or shopping? (15 years old or older) Answer Date of Assessment Author No 05/18/2024 3:18 PM Davis Ogden ae, RN documented as of this encounter Mental Status * Because of a physical, mental, or emotional condition, do you have serious difficulty concentrating, remembering, or making decisions? (5 years old or older) Answer Entry Date Author No 05/18/2024 3:18 PM Davis Ogden ae, RN documented in this encounter Plan of Treatment Upcoming Encounters Date Type Department Care Team (Latest Contact Info) Description 05/27/2024 11:00 AM EST Office Visit Family Practice [facility] [address] [place] [address] Williams Hauser III, MD [address] [facility] [place] [address] 05/30/2024 7:30 AM EST Imaging Radiology [facility] [address] [place] [address] 07/12/2024 9:30 AM EDT Office Visit Gastroenterology , [facility] [address] [place] [address] Cammie Zapata PA-C [address] [place] [address] 08/18/2024 8:00 AM EDT Hospital Encounter ENDO [facility], Endoscopy Room [facility] [address] [place] [address] Ellie Garcia MD [address] [place] [address] 08/18/2024 8:00 AM EDT - 08/18/2024 8:45 AM EDT Surgery ENDO [facility], Endoscopy Room [facility] [address] [place] [address] Ellie Garcia MD [address] [place] [address] ENDOSCOPIC RETROGRADE CHOLANGIOPANCREATOGRAPHY (ERCP) DIAGNOSTIC 11/04/2024 8:40 AM EDT Office Visit [facility] [address] [facility] [place] [address] Williams Hauser III, MD [address] [facility] [place] [address] Scheduled Procedures Name Priority Associated Diagnoses Date/Ti [...] 01/26/2019 Depression Monitoring 04/01/2025 04/01/2024 Diabetes Screening 05/20/2027 05/20/2024, 0 05/19/2024, 05/18/2024, Additional history exists DTap/Tdap Vaccines (8 - [...] this encounter Medical Devices Implanted Type Area Solar Installation Technician Device Identifier Shelf Expiration Date Model / Serial / Lot Cartridge Esophyx Z+ - [id number] Implanted:Qty: 1 on 04/28/2019 by Ellie Garcia MD at OR [facility] [employer] 11/03/2020 [id number] / / [id number] Description:fasteners 10@11, 10@1, 4@5, 4@7 placed at GE junction (code [id number]) Stent Panc Sgl Pigtail [id number] - [id number] Implanted:Qty: 1 on 05/10/2024 by Ellie Garcia MD at ENDOSCOPY [facility] N/A: Stomach COOK : IMELDA MAYO 09/29/2025 [id number] / / [id number] documented as of this encounter Advance Directives * Full Code (Latest Code Status on File) Date Activated Date Inactivated Comments 05/18/2024 3:33 PM 05/21/2024 5:10 PM This order reflects the patients wishes and were consensually agreed upon. Question Answer Comments Discussion of Advance Directives occurred with: Patient Care Teams Immigration Paralegal Relationship Specialty Start Date End Date Williams Hauser III, MD [address] [facility] [place] [place] [address] PCP - General Family Medicine 10/27/22 documented as of this encounter
--- OUTSIDE RECORDS SUMMARY | 2024-06-04 23:23 | External Medical Summary ---
Author Name Unknown Address Unknown Organization K1F:[facility] - [address] [place] [address] Laboratory Report Ordering Provider Test Date Status LENY BRADLEY 05/20/2024 05:40:00 Final Observation Date Value Abnormality Reference (Units ) Status Albumin 05/20/2024 05:40:00 3.5 Below low normal 3.8-5.0 (g/dL) Final AST (Aspartate aminotransferase) 05/20/2024 05:40:00 17 10-35 (U/L) Final Alk Phos 05/20/2024 05:40:00 103 35-130 (U/L) Final ALT (Alanine aminotransferase) 05/20/2024 05:40:00 23 10-35 (U/L) Final Bilirubin, Total 05/20/2024 05:40:00 0.3 <=1.2 (mg/dL) Final Bilirubin, Direct 05/20/2024 05:40:00 0.1 0.0-0.3 (mg/dL) Final Protein 05/20/2024 05:40:00 6.1 6.0-8.3 (g/dL) Final Performing Location [facility] - [address] [place] [address]
--- OUTSIDE RECORDS SUMMARY | 2024-06-04 23:23 | External Medical Summary ---
Author Name Unknown Address Unknown Organization K01:[facility] - [address] [facility] [address] Laboratory Report Ordering Provider Test Date Status KATHERINE PELAYO 05/28/2024 12:52:32 Final Observation Date Value Abnormality Reference (Units ) Status TSH 05/28/2024 12:52:32 1.75 0.27-4.20 (uIU/mL) Final Performing Location LABORATORY [facility] - [address] [facility] [address]
--- OUTSIDE RECORDS SUMMARY | 2024-06-04 23:23 | External Medical Summary ---
Author Name Unknown Address Unknown Organization K0G:[facility] [address] - [address] [place] [address] Laboratory Report Ordering Provider Test Date Status KATHERINE PELAYO 05/28/2024 12:52:32 Final Observation Date Value Abnormality Reference (Units ) Status BUN 05/28/2024 12:52:32 17 6-20 (mg/dL) Final Creatinine 05/28/2024 12:52:32 0.9 0.5-1.0 (mg/dL) Final Glomerular filtration rate/1.73 sq M.predicted [Volume Rate/Area] in Serum, Plasma or Blood by Creatinine-based formula (CKD-EPI) 05/28/2024 12:52:32 83 >=60 (mL/min) Final eGFR is calculated based on the CKD-EPI 2020 equation. Sodium 05/28/2024 12:52:32 140 135-146 (m mol/L) Final Potassium 05/28/2024 12:52:32 4.6 3.5-5.1 (m mol/L) Final Cl 05/28/2024 12:52:32 103 98-107 (mm ol/L) Final CO2 05/28/2024 12:52:32 28 22-32 (mmo l/L) Final Anion gap 05/28/2024 12:52:32 9 7-15 (mmol /L) Final Glucose 05/28/2024 12:52:32 96 70-120 (mg /dL) Final Calcium 05/28/2024 12:52:32 9.5 8.4-10.2 ( mg/dL) Final Performing Location LABORATORY [facility] [address] - [address] [place] [id number]
--- OUTSIDE RECORDS SUMMARY | 2024-06-04 23:23 | External Medical Summary ---
Author Name Unknown Address Unknown Organization K1F:[facility] - [address] [place] [address] Laboratory Report Ordering Provider Test Date Status VALERIE MCGRAW 05/20/2024 05:40:00 Final Observation Date Value Abnormality Reference (Units ) Status BUN 05/20/2024 05:40:00 5 Below low normal 6-20 (mg/dL) Final Creatinine 05/20/2024 05:40:00 0.8 0.5-1.0 (mg/dL) Final Glomerular filtration rate/1.73 sq M.predicted [Volume Rate/Area] in Serum, Plasma or Blood by Creatinine-based formula (CKD-EPI) 05/20/2024 05:40:00 >90 >=60 (mL/min) Final eGFR is calculated based on the CKD-EPI 2020 equation. Sodium 05/20/2024 05:40:00 142 135-146 (m mol/L) Final Potassium 05/20/2024 05:40:00 4.4 3.5-5.1 (m mol/L) Final Cl 05/20/2024 05:40:00 104 98-107 (mm ol/L) Final CO2 05/20/2024 05:40:00 30 22-32 (mmo l/L) Final Anion gap 05/20/2024 05:40:00 8 7-15 (mmol /L) Final Glucose 05/20/2024 05:40:00 92 70-120 (mg /dL) Final Calcium 05/20/2024 05:40:00 9.1 8.4-10.2 ( mg/dL) Final Performing Location [facility] - [address] [facility] [place] [address]
--- OUTSIDE RECORDS SUMMARY | 2024-06-04 23:23 | External Medical Summary | Summary of Care ---
Author Name Unknown Organization [facility] Address [address] [facility] [place] [address] Phone [phone] Care Team Providers Care Gunner'S Mate Name Role Phone Murtaza BENTON MD, Williams Payton Primary Care Provider [phone] Reason for Referral * Precert (Within 24 hrs (call dept; emergent)) - Authorized Specialty Diagnoses / Procedures Referred By Contac t Referred To Contact Radiology Diagnoses History of acute pancreatitis Procedures CT PANCREAS W IV AND W ORAL CONTRAST Myranda Mckeon CRNP [address] [place] [address] Phone: tel: fax: Referral ID Status Reason Start Date Expiration Date V isits Requested Visits Authorized [id number] Authorized 05/24/2024 999 999 Reason for Visit * Reason Comments Follow Up Pt reports chronic p ancreatitis with weight loss. Was admitted to [facility] and [facility] since her procedure. Encounter Details Date Type Department Care Team (Late st Contact Info) Description 05/24/2024 11:00 AM EST Office Visit Gastroenterology, [facility] [address] [address] Myranda Mckeon CRNP [address] [place] [address] Pancreatic divisum*; Idiopathic chronic pancreatitis (HCC) Allergies Active Allergy Reactions Criticality Noted Date Comments Clindamycin Other (Please comment) 12/21/2014 Burned taste Muscle pain Doxycycline Low 08/22/2020 Other reaction(s): Metallic Taste Penicillins Unknown 10/07/2007 As a child Other reaction(s): UNKNOWN, CHILD ALLERGY documented as of this encounter (statuses as of 05/24/2024) Medications NATURAL SUPPLEMENT Take by mouth daily. Medical marijuana Active Loratadine 10 MG Oral Tablet Take 1 Tablet by mouth in the morning. Active Fluticasone Propionate 50 MCG/ACT Nasal Suspension Administer 1 [place] into nostril in the morning. Active Ondansetron HCl 4 MG Oral Tablet (Zofran)Indicatio ns:Nausea and vomiting, intractability of vomiting not specified, unspecified vomiting type Take 1 Tablet by mouth every 6 hours as needed for Nausea. 30 Tablet 021 Active DULoxetine HCl 60 MG Oral Capsule [...] before breakfast. 30 Capsule 3 025 Active Additional Information Patient not taking.Reported on 05/24/2024 busPIRone HCl 15 MG Oral Tablet (Buspar) TAKE 1 TABLET BY MOUTH EVERY MORNING AND 1 TAB AT BEDTIME 180 Tablet 2 025 Active Acetaminophen 325 MG Oral Tablet (Tylenol) Take 3 Tablets by mouth every 6 hours as needed for Fever >38C(100.5F), Pain, Mild or Pain, Moderate. 60 Tablet 025 Active Famotidine 20 MG Oral Tablet (Pepcid) Take 1 Tablet by mouth at bedtime. 30 Tablet 2 025 Active Polyethylene Glycol 3350 17 GM Oral Packet (Miralax) Take 1 Packet by mouth 2 times a day as needed for Constipation. 14 Each 025 2024 Discontinued Docusate Sodium 100 MG Oral Capsule (Colace) Take 1 Capsule by mouth 2 times a day as needed for Constipation. 10 Capsule 025 2024 Discontinued oxyCODONE HCl 5 MG Oral Tablet (Oxy IR) Take 1 Tablet by mouth every 8 hours as needed for Pain, Severe. 10 Tablet 025 2024 Discontinued documented as of this encounter (statuses as of 05/24/2024) Active Problems Problem Noted Date Diagnosed Date [...] as of this encounter (statuses as of 05/24/2024) Resolved Problems Problem Noted Date Diagnosed Date Resolved Date RLS (restless legs syndrome) 07/01/2022 07/03/2023 Fatty liver 10/31/2021 07/03/2023 Morbid (severe) obesity due to excess calories 05/02/2019 05/02/2019 Depression with anxiety 05/28/2016 06/09/2018 Anemia 09/04/2009 10/04/2021 Encounter for supervision of other normal 05/15/2005 06/03/2005 Overview (07/31/2015): ICD-10 update of inactive term ADVANCE DIRECTIVE INFORMATION 04/14/2005 10/04/2021 Overview (04/14/2005): No, Advance Directive brochure given to patient. Tobacco use disorder 04/14/2005 016 Normal , first 11/24/2000 04/0 10/2001 Major depressive disorder 07/30/1999 Overview (01/20/2017): ICD-10 update of inactive term documented as of this encounter (statuses as of 05/24/2024) Immunizations Name Administration Dates Next Due HPV [...] No 05/18/2024 Are you (or your family) citlaly eless [...] Sign Reading Time Taken Comments Blood Pressure 122/82 05/24/2024 11:01 AM EST Pulse 85 05/24/2024 11:01 AM EST Temperature 36.5 C (97.7 F) 05/24/2024 11:[address] Respiratory Rate - - Oxygen Saturation 98% 05/24/2024 11:01 AM EST Inhaled Oxygen Concentration - - Weight 66.9 kg (147 lb 6.4 oz) 05/24/2024 11:01 AM EST Height - - Body Mass Index 26.11 05/18/2024 3:15 PM EST documented in this encounter Functional Status * Are you deaf or do you have serious difficulty hearing? Answer Date of Assessment Author No 05/18/2024 3:18 PM EST Davis Zavaleta ae, RN * Are you blind or do you have serious difficulty seeing, even when wearing glasses? Answer Date of Assessment Author No 05/18/2024 3:18 PM EST Davis Zavaleta ae, RN * Do you have serious difficulty walking or climbing stairs? (5 years old or older) Answer Date of Assessment Author No 05/18/2024 3:18 PM EST Davis Zavaleta ae, RN * Do you have difficulty dressing or bathing? (5 years old or older) Answer Date of Assessment Author No 05/18/2024 3:18 PM EST Davis Zavaleta ae, RN * Because of a physical, [...] Entry Date Author No 05/18/2024 3:18 PM EST Davis Zavaleta ae, RN documented in this encounter Progress Notes * Myranda Mckeon CRNP - 05/24/2024 11:00 AM EST Gastroenterology Outpatient Visit 05/24/2024 Referring physician:Williams Hauser III, MD PCP: Williams Hauser III, MD Past medical history: Irritable bowel syndrome-constipation History of idiopathic acute pancreatitis, 07/2023 Pancreatic divisum noted on EUS s/p sphincterotomy and stent placement 05/10/2024; postop course complicated by recurrent pancreatitis Genetic testing for pancreatitis negative History of laparoscopic cholecystectomy 08/22/2020 GERD, history of TIF fundoplication; failed CC: Pancreatitis, hospital follow-up HPI: Pleasant 38-year-old female presents today in follow-up for recent hospitalization. Patient with history of acute pancreatitis and questionable pancreatic divisum. Last appointment noted concerns regarding recurrent pancreatitis. Blood work was unremarkable including a negative lipase. She underwent EUS/ERCP with Dr. Ellie Garcia on 05/10/2024. Findings consistent with pancreas divisum. Sphincterotomy performed in his stent was placed in the minor papilla. 5 days postprocedure patient presented to [facility] Emergency Department with severe abdominal pain and nausea. Lipase of 657, T bili 0.4, AST 17, ALT 15, Alk phos 47. WBC count >19,000. She had a CT abdomen performed that showed the pancreatic stent and concern for acute pancreatitis in the region of the pancreatic head. She was treated aggressively with IV fluid resuscitation and bowel rest. Discharged home 05/15/2024. Noted ongoing abdominal pain and nausea. Patient returned to the ED. Blood cultures- negative, treated with antibiotics in the ED (1 dose) LFTs and lipase were unremarkable. MRCP showed findings concerning for necrotizing pancreatitis--patient was transferred to [facility] (05/18/2024)--again treated with IV fluids and pain control. Antibiotics were deferred. Patient made steady improvement inpatient and was discharged 05/21/2024. She is scheduled to have a repeat ERCP with Dr. Ellie Garcia-- 08/18/2024. 05/24/2024: Today the patient presents feeling fair, but improved since hospitalization. Notes that after the leaving the hospital she was feeling terrible--even eating a small amount of fat caused significant epigastric discomfort and fatty stools. She has cut fat completely out of her diet in her epigastric discomfort as well as fatty stools have resolved. She had a large formed brown bowel movement today. No indigestion or reflux but does have some epigastric tenderness on palpation. Appetite is slowly improving--she is eating small frequent meals and drinking lots of water. If she eats a larger portion she does get significant bloating. Notes occasional nausea that has resolved with the use of Zofran. No vomiting. She has lost about 10 lb and continues to lose. Another concern she has a nightly night sweats--notes that she is soaking the sheets and has to shower in the morning. She does take her temperature and denies fever. Previous GI workup: Colonoscopy: 04/28/2023--ileum normal. Nonbleeding internal hemorrhoids. No specimens collected. EGD: 07/22/2022--normal esophagus. TIF fundoplication found. Rap appears intact. Normal stomach. Normal duodenal bulb and 2nd portion of the duodenum. EUS: EUS/ERCP 05/10/2024--normal esophagus. Post TLIF fundoplication found. Wrap intact. Normal stomach and duodenum. No significant pathology in the ampulla or CBD. Evidence of cholecystectomy. No pathology visualized in the liver. Pancreatic parenchymal abnormalities consistent with hyperechoic strands and hyperechoic foci noted in the entire pancreas. Pancreas divisum visualized. No specimens collected. ERCP: Pancreas divisum found. Sphincterotomy performed and then a stent was placed in the minor papilla. 07/22/2022--no significant pathology in the ampulla, CBD. Evidence of cholecystectomy. No evidence of significant pathology in the liver. No significant pathology of the entire pancreas. Pancreatic divisum suspected. No specimens collected. CTAP 12/2020--unremarkable Social history: Tobacco use: None ETOH use: None Drug use: Heavy medical marijuana use, helping symptoms NSAID use: None Caffeine use: 1-2 cup of coffee daily (cut back from 4 cups) Family Hx: No known family history of inflammatory bowel disease or GI malignancy. Current Outpatient Medications Medication Sig Dispense Refill NATURAL SUPPLEMENT Take by mouth daily. Medical marijuana Loratadine 10 MG Oral Tablet Take 1 Tablet by mouth in the morning. Fluticasone Propionate 50 MCG/ACT Nasal Suspension Administer 1 [place] into nostril in the morning. Ondansetron HCl 4 MG Oral Tablet (Zofran) Take 1 Tablet by mouth every 6 hours as needed for Nausea. 30 Tablet 0 DULoxetine HCl 60 MG Oral Capsule Delayed Release Particles (Cymbalta) TAKE 1 CAPSULE BY MOUTH EVERY DAY DO NOT CRUSH OR CHEW 90 Capsule 3 traZODone HCl 100 MG Oral Tablet (Desyrel) TAKE 1 TABLET BY MOUTH EVERYDAY AT BEDTIME 90 Tablet 3 Pantoprazole Sodium 40 MG Oral Tablet Delayed Release (Protonix) Take 1 Tablet by mouth in the morning. 30 Tablet 5 busPIRone HCl 15 MG Oral Tablet (Buspar) TAKE 1 TABLET BY MOUTH EVERY MORNING AND 1 TAB AT BEDTIME 180 Tablet 2 Acetaminophen 325 MG Oral Tablet (Tylenol) Take 3 Tablets by mouth every 6 hours as needed for Fever >38C(100.5F), Pain, Mild or Pain, Moderate. 60 Tablet 0 Famotidine 20 MG Oral Tablet (Pepcid) Take 1 Tablet by mouth at bedtime. 30 Tablet 2 Linzess 290 MCG Oral Capsule (linaCLOtide) Take 1 Capsule by mouth daily before breakfast. (Patientnot taking: Reported on 05/24/2024) 30 Capsule 3 No current facility-administered medications for this visit. Past Medical History: Diagnosis Date Depressive disorder, not elsewhere classified 05-28 not currently on meds Early onset of delivery 05/16/01 Excessive or frequent menstruation Past Surgical History: Procedure Laterality Date COLONOSCOPY, DIAGNOSTIC (RECTUM) 03/08/2020 fair prep, normal / COLONOSCOPY FLEXIBLE PROXIMAL DIAGNOSTIC performed by Ellie Garcia MD at ENDOSCOPY [facility] COLONOSCOPY, DIAGNOSTIC (RECTUM) 04/28/2023 hemorrhoids/COLONOSCOPY FLEXIBLE PROXIMAL DIAGNOSTIC performed by Ellie Garcia MD at ENDOSCOPY [facility] EDG FLEX, ORAL, W/ FUNDOPLASY N/A 04/28/2019 esophyX transforal fundopllication performed/normal/ESOPHAGOGASTRODUODENOSCOPY (EGD), FLEXIBLE, TRANSORAL, DIAGNOSTIC TIF's Proc performed by Ellie Garcia MD at OR [facility] EGD, FLEXIBLE, DIAGNOSTIC 12/17/2017 reflux esophagitis/ESOPHAGOGASTRODUODENOSCOPY (EGD), FLEXIBLE, TRANSORAL, DIAGNOSTIC performed by Ellie Garcia MD at ENDOSCOPY [facility] EGD, FLEXIBLE, DIAGNOSTIC 02/21/2019 acid reflux on bx/ESOPHAGOGASTRODUODENOSCOPY (EGD), FLEXIBLE, TRANSORAL, DIAGNOSTIC performed by Ellie Garcia MD at ENDOSCOPY [facility] EGD, FLEXIBLE, DIAGNOSTIC 03/04/2019 w/ [facility] / [facility] EGD, FLEXIBLE, DIAGNOSTIC 07/22/2022 normal / ESOPHAGOGASTRODUODENOSCOPY (EGD), FLEXIBLE, TRANSORAL, DIAGNOSTIC performed by Ellie Garcia MD at ENDOSCOPY [facility] EGD, W/ENDOSCOPIC US 07/22/2022 normal / ESOPHAGOGASTRODUODENOSCOPY (EGD), FLEXIBLE, TRANSORAL, ENDOSCOPIC ULTRASOUND performed by Ellie Garcia MD at ENDOSCOPY [facility] EGD, W/ENDOSCOPIC US 05/10/2024 ESOPHAGOGASTRODUODENOSCOPY (EGD), FLEXIBLE, TRANSORAL, ENDOSCOPIC ULTRASOUND performed by Ellie Garcia MD at ENDOSCOPY [facility] ERCP, DIAGNOSTIC, SPECIMEN COLLECTION 05/10/2024 ENDOSCOPIC RETROGRADE CHOLANGIOPANCREATOGRAPHY (ERCP) DIAGNOSTIC performed by Ellie Garcia MD at ENDOSCOPY [facility] HYSTEROSCOPY;ENDOMETRIAL ABLAT 03/17/2012 LAP;W/HYSTERECTOMY 12/07/2015 with right salpingo-oophheorectomy LAPAROSCOPY; CHOLECYSTECTOMY 08/22/2020 Dr Katherine Garvin LIGATE/CUT OVIDUCT(S) 09/01/2005 [place] PAP SCREEN 11/20/2011 wnl Social History Tobacco Use Smoking status: Former Current packs/day: 0.00 Average packs/day: 1 pack/day for 10.0 years (10.0 ttl pk-yrs) Types: Cigarettes Start date: 10/17/2004 Quit date: 10/17/2014 Years since quittin.6 Smokeless tobacco: Never Vaping Use Vaping status: [...] those noted in HPI. Physical Exam: BP 122/82 | Pulse 85 | Temp 36.5 C (97.7 F) | Wt 66.9 kg (147 lb 6.4 oz) | SpO2 98% | BMI 26.11kg/m | BSA 1.72 m GENERAL: Well developed and well nourished [...] normal. Lab data/imaging study review: Reviewed via chart/VideoSurf Impression/Plan: This is a(n) 38 year old female who is being evaluated in the office for ongoing care/risk management for the below diagnoses. 1. Chronic idiopathic pancreatitis 2. Pancreatic divisum Patient with chronic pancreatitis. Pancreatic divisum noted on EUS status post ERCP with sphincterotomy and stent placement. Recurrent pancreatitis following procedure--questionable necrotizing pancreatitis on MRCP at [facility] ED. Recommend repeat CT of pancreas to rule abscess Pancreatic elastase ordered, check for pancreatic insufficiency Repeat blood work Thursday or Thursday Follow strict low-fat diet. Okay to use Zofran as needed Any fever or severe pain/unable to keep down food or fluid recommend hospital evaluation. Given epigastric discomfort continue pantoprazole 40 mg daily and start Pepcid 20 mg nightly. Follow-up with Dr. Ellie Garcia for repeat ERCP in July. The patient agrees to the above plan and will call with additional questions or concerns. ER with all emergencies advised. Follow-up: Return in about 4 weeks (around 06/21/2024). | Check-out note: -CTAP stat I spent a total of 40-54 minutes (exact time 40 mins) on the date of service in preparation, delivery, and documentation of the care provided to Rosalina Teran excluding any time spent in the performance of separately billed services or time spent by another provider/QHP. FAUSTO Garcia [facility] This chart was completed in part utilizing [employer] Speech Voice Recognition Software. Grammatical errors, random [...] documented in this encounter Nursing Notes * Kathrin Dia LPN - 05/24/2024 11:01 AM EST Chief Complaint Patient presents with Follow Up Pt reports chronic pancreatitis with weight loss. Was admitted to [facility] and [facility] since her procedure. documented in this encounter Plan of Treatment Upcoming Encounters Date Type Department Care Team (Latest Contact Info) Description 05/27/2024 11:00 AM EST Office Visit [facility] [address] [facility] [address] [place] [address] Williams Hauser III, MD [address] [facility] [place] [address] 05/30/2024 7:30 AM EST Imaging Radiology [address] [place] [phone] 07/12/2024 9:30 AM EDT Office Visit Gastroenterology , [facility] [address] [place] [address] Cammie Zapata PA-C [address] [place] [address] 08/18/2024 8:00 AM EDT Hospital Encounter ENDO OSS[facility], Endoscopy Room [facility] [address] [place] [phone] Ellie Garcia MD [address] [place] [address] 08/18/2024 8:00 AM EDT - 08/18/2024 8:45 AM EDT Surgery ENDO [facility], Endoscopy Room [facility] [address] [place] [phone] Ellie Garcia MD [address] [place] [address] ENDOSCOPIC RETROGRADE CHOLANGIOPANCREATOGRAPHY (ERCP) DIAGNOSTIC 11/04/2024 8:40 AM EDT Office Visit [facility] [address] [facility] [place] [address] Williams Hauser III, MD [address] [facility] [place] [address] Scheduled Orders Name Type Priority Associated Diagnoses Orde r Schedule CT PANCREAS W IV AND W ORAL CONTRAST Medical Imaging STAT Expected: 05/24/2024, Expires: 06/21/2025 HEPATIC FUNCTION PANEL Lab Routine Ex pected: 05/24/2024, Expires: 05/24/2025 PANCREATIC ELASTASE-1 Lab Routine Exp ected: 05/24/2024, Expires: 05/24/2025 CBC WITH WBC DIFFERENTIAL Lab Routine Expected: 05/24/2024, Expires: 05/24/2025 TSH WITH FREE T4 IF INDICATED Lab Routine Expected: 05/24/2024, Expires: 05/24/2025 BASIC METABOLIC PANEL Lab Routine Exp ected: 05/24/2024, Expires: 05/24/2025 Scheduled Procedures Name Priority Associated Diagnoses Date/Ti [...] this encounter Medical Devices Implanted Type Area Center Administrator Device Identifier Shelf Expiration Date Model / Serial / Lot Cartridge Esophyx Z+ - [id number] Implanted:Qty: 1 on 04/28/2019 by Ellie Garcia MD at OR [facility] [employer] 11/03/2020 [id number] / / [id number] Description:fasteners 10@11, 10@1, 4@5, 4@7 placed at GE junction (code 0278) Stent Panc Sgl Pigtail [id number] - [id number] Implanted:Qty: 1 on 05/10/2024 by Ellie Garcia MD at ENDOSCOPY [facility] N/A: Stomach COOK : IMELDA MAYO 09/29/2025 [id number] / / [id number] documented as of this encounter Visit Diagnoses Diagnosis Pancreatic divisum- Primary Congenital anomalies of pancreas Idiopathic chronic pancreatitis (HCC) Chronic recurrent pancreatitis (HCC) Chronic pancreatitis documented in this encounter Advance Directives * Full Code (Latest Code Status on File) Date Activated Date Inactivated Comments 05/18/2024 3:33 PM 05/21/2024 5:10 PM This order r eflects the patients wishes and were consensually agreed upon. Question Answer Comments Discussion of Advance Directives occurred with: Patient Care Teams Gunner'S Mate Relationship Specialty Start Date End Date Williams Hauser III, MD [address] [facility] [place] [place] [address] PCP - General Family Medicine 10/27/22 documented as of this encounter"
--- OUTSIDE RECORDS SUMMARY | 2024-06-04 23:23 | External Medical Summary ---
Author Name Unknown Address Unknown Organization K1F:LABORATORY [facility] - [address] [place] [address] Laboratory Report Ordering Provider Test Date Status VALERIE MCGRAW 05/20/2024 05:40:00 Final Observation Date Value Abnormality Reference (Units ) Status WBC, Total 05/20/2024 05:40:00 8.67 4.00-10.80 (K/uL) Final RBC 05/20/2024 05:40:00 3.90 3.85-5.15 (M/uL) Final Hemoglobin 05/20/2024 05:40:00 12.1 12.0-15.3 (g/dL) Final HCT 05/20/2024 05:40:00 37.5 36.0-45.2 (%) Final MCV 05/20/2024 05:40:00 96.2 81.5-97.5 (fL) Final MCH 05/20/2024 05:40:00 31.0 27.0-34.0 (pg) Final MCHC 05/20/2024 05:40:00 32.3 32.0-36.0 (g/dL) Final RDW 05/20/2024 05:40:00 12.2 11.5-15.5 (%) Final Platelets 05/20/2024 05:40:00 339 140-400 (K/uL) Final MPV 05/20/2024 05:40:00 7.9 6.6-11.1 (fL) Final Nucleated erythrocytes/100 leukocytes [Ratio] in Blood by Automated count 05/20/2024 05:40:00 0 <=0 (/100 WBCs) Final Performing Location LABORATORY [facility] - [address] [place] [address]
--- OUTSIDE RECORDS SUMMARY | 2024-06-04 23:23 | External Medical Summary ---
Author Name Unknown Address Unknown Organization K1F:LABORATORY [facility] - [address] [place] [address] Laboratory Report Ordering Provider Test Date Status NAVI RAMOS 05/19/2024 05:37:00 Final Observation Date Value Abnormality Reference (Units ) Status BUN 05/19/2024 05:37:00 5 Below low normal 6-20 (mg/dL) Final Creatinine 05/19/2024 05:37:00 0.8 0.5-1.0 (mg/dL) Final Glomerular filtration rate/1.73 sq M.predicted [Volume Rate/Area] in Serum, Plasma or Blood by Creatinine-based formula (CKD-EPI) 05/19/2024 05:37:00 >90 >=60 (mL/min) Final eGFR is calculated based on the CKD-EPI 2020 equation. Sodium 05/19/2024 05:37:00 142 135-146 (m mol/L) Final Potassium 05/19/2024 05:37:00 4.4 3.5-5.1 (m mol/L) Final Cl 05/19/2024 05:37:00 105 98-107 (mm ol/L) Final CO2 05/19/2024 05:37:00 28 22-32 (mmo l/L) Final Anion gap 05/19/2024 05:37:00 9 7-15 (mmol /L) Final Glucose 05/19/2024 05:37:00 105 70-120 (mg /dL) Final Albumin 05/19/2024 05:37:00 3.3 Below low normal 3.8 -5.0 (g/dL) Final AST (Aspartate aminotransferase) 05/19/2024 05:37:00 15 10-35 (U/L) Fin al Alk Phos 05/19/2024 05:37:00 100 35-130 (U/ L) Final Bilirubin, Total 05/19/2024 05:37:00 0.3 <=1 .2 (mg/dL) Final Calcium 05/19/2024 05:37:00 8.7 8.4-10.2 ( mg/dL) Final Protein 05/19/2024 05:37:00 6.0 6.0-8.3 (g /dL) Final ALT (Alanine aminotransferase) 05/19/2024 05:37:00 21 10-35 (U/L) Didier lin Performing Location LABORATORY [facility] - [facility] [address] [place] [address]
--- OUTSIDE RECORDS SUMMARY | 2024-06-04 23:23 | External Medical Summary ---
Author Name Unknown Address Unknown Organization K0G:LABORATORY [facility] [address] - [address] [place] [address] Laboratory Report Ordering Provider Test Date Status KATHERINE PELAYO 05/28/2024 12:52:32 Final Observation Date Value Abnormality Reference (Units ) Status WBC, Total 05/28/2024 12:52:32 7.38 4.00-10.8 0 (K/uL) Final RBC 05/28/2024 12:52:32 4.24 3.85-5.15 (M/uL) Final Hemoglobin 05/28/2024 12:52:32 13.5 12.0-15.3 (g/dL) Final HCT 05/28/2024 12:52:32 39.7 36.0-45.2 (%) Final MCV 05/28/2024 12:52:32 93.6 81.5-97.5 (fL) Final MCH 05/28/2024 12:52:32 31.8 27.0-34.0 (pg) Final MCHC 05/28/2024 12:52:32 34.0 32.0-36.0 (g/dL) Final RDW 05/28/2024 12:52:32 12.2 11.5-15.5 (%) Final Platelets 05/28/2024 12:52:32 465 Above high normal 14 0-400 (K/uL) Final MPV 05/28/2024 12:52:32 8.0 6.6-11.1 ( fL) Final Performing Location LABORATORY [facility] [address] - [address] [place] [address]
--- OUTSIDE RECORDS SUMMARY | 2024-06-04 23:23 | External Medical Summary ---
Author Name Unknown Address Unknown Organization K1F:LABORATORY [facility] - [address] [place] [address] Laboratory Report Ordering Provider Test Date Status NAVI RAMOS 05/19/2024 05:37:00 Final Observation Date Value Abnormality Reference (Units ) Status WBC, Total 05/19/2024 05:37:00 10.06 4.00-10.80 (K/uL) Final RBC 05/19/2024 05:37:00 3.66 3.85-5.15 (M/uL) Final Hemoglobin 05/19/2024 05:37:00 11.5 Below low normal 12.0-15.3 (g/dL) Final HCT 05/19/2024 05:37:00 35.1 Below low normal 36.0-45.2 (%) Final MCV 05/19/2024 05:37:00 95.9 81.5-97.5 (fL) Final MCH 05/19/2024 05:37:00 31.4 27.0-34.0 (pg) Final MCHC 05/19/2024 05:37:00 32.8 32.0-36.0 (g/dL) Final RDW 05/19/2024 05:37:00 12.5 11.5-15.5 (%) Final Platelets 05/19/2024 05:37:00 272 140-400 (K/uL) Final MPV 05/19/2024 05:37:00 7.7 6.6-11.1 (fL) Final Nucleated erythrocytes/100 leukocytes [Ratio] in Blood by Automated count 05/19/2024 05:37:00 0 <=0 (/100 WBCs) Final Performing Location LABORATORY [facility] - [address] [place] [address]
--- OUTSIDE RECORDS SUMMARY | 2024-06-04 23:23 | External Medical Summary ---
Author Name Unknown Address Unknown Organization : Laboratory Report Ordering Provider Test Date Status KATHERINE PELAYO 05/28/2024 12:52:41 Final Observation Date Value Abnormality Reference (Units ) Status PANCREATIC ELASTASE-1 05/28/2024 12:52:41 >800 >200 (mcg/g) Final E-1 mcg/g feces Interpretati on
<100 Severe exocrine pancreatic
insufficiency
100-200 Mild to moderate exocrine
pancreatic insufficiency
>200 Normal
Test performed by [facility]
[address],
[place] [address]

Fence Post Driver: Bree Gregorio MD,PHD,STEFANI
Test Reported by Alex Farah,
[facility],
[address] [place], [place]
Kem Feliz M.D., Ph.D., Director of Laboratories
, [place] [id number] Performing Location
--- OUTSIDE RECORDS SUMMARY | 2024-06-04 23:23 | External Medical Summary | Summary of Care ---
Author Name Unknown Organization [facility] Address [address] [place] [address] Phone [phone] Care Team Providers Care Pharmacology Teacher Name Role Phone Murtaza BENTON MD, Williams Payton Primary Care Provider [phone] Reason for Visit * Reason Comments Outpatient Testing Encounter Details Date Type Department Care Team (Late st Contact Info) Description 05/28/2024 1:20 PM EST Laboratory Laboratory, [facility] [address] [facility] [phone] [facility] [address] [address] Abdominal pain, epigastric Allergies Active Allergy Reactions Criticality Noted Date Comments Clindamycin Other (Please comment) 12/21/2014 Burned taste Muscle pain Doxycycline Low 08/22/2020 Other reaction(s): Metallic Taste Penicillins Unknown 10/07/2007 As a child Other reaction(s): UNKNOWN, CHILD ALLERGY documented as of this encounter (statuses as of 05/28/2024) Medications NATURAL SUPPLEMENT Take by mouth daily. Medical marijuana Active Loratadine 10 MG Oral Tablet Take 1 Tablet by mouth in the morning. Active Fluticasone Propionate 50 MCG/ACT Nasal Suspension Administer 1 [place] into nostril in the morning. Active Ondansetron [...] Mild or Pain, Moderate. 60 Tablet 05/21/19 25 Active Famotidine 20 MG Oral Tablet (Pepcid) Take 1 Tablet by mouth at bedtime. 30 Tablet 2 05/24/19 25 Active documented as of this encounter (statuses as of 05/28/2024) Active Problems Problem Noted Date Diagnosed Date [...] as of this encounter (statuses as of 05/28/2024) Resolved Problems Problem Noted Date Diagnosed Date [...] as of this encounter (statuses as of 05/28/2024) Immunizations Name Administration Dates Next Due HPV [...] Assessment Author No 05/18/2024 3:18 PM Davis Ogdne ae, RN documented as of this encounter Mental Status * Because of a physical, mental, or emotional condition, do you have serious difficulty concentrating, remembering, or making decisions? (5 years old or older) Answer Entry Date Author No 05/18/2024 3:18 PM Davis Ogden ae, RN documented in this encounter Plan of Treatment Upcoming Encounters Date Type Department Care Team (Latest Contact Info) Description 05/30/2024 7:30 AM EST Imaging Radiology [facility], [address] [place] [phone] 07/12/2024 9:30 AM EDT Office Visit Gastroenterology , [facility] [address] [place] [address] Cammie Zapata PA-C [address] [place] [address] 08/18/2024 8:00 AM EDT Hospital Encounter ENDO [facility]SS[facility], Endoscopy Room [facility] [address] [place] [phone] Ellie Garcia MD [address] [place] [address] 08/18/2024 8:00 AM EDT - 08/18/2024 8:45 AM EDT Surgery ENDO OSS, Endoscopy Room [facility] [address] [place] [phone] Ellie Garcia MD [address] [place] [address] ENDOSCOPIC RETROGRADE CHOLANGIOPANCREATOGRAPHY (ERCP) DIAGNOSTIC 11/04/2024 8:40 AM EDT Office Visit [facility] [address] [facility] [place] [address] Williams Hauser III, MD [address] [facility] [place] [address] Pending Results Name Type Priority Associated Diagnoses Date /Time LIPASE Lab Routine Abdominal pain, epigastric 05/28/2024 12:52 PM EST HEPATIC FUNCTION PANEL Lab Routine 12:52 PM EST TSH WITH FREE T4 IF INDICATED Lab Routine 05/28/2024 12:52 PM EST BASIC METABOLIC PANEL Lab Routine 03/2024 12:52 PM EST PANCREATIC ELASTASE-1 Lab Routine 03/2024 12:52 PM EST Scheduled Procedures Name Priority Associated [...] this encounter Medical Devices Implanted Type Area Community Arts Worker Device Identifier Shelf Expiration Date Model / Serial / Lot Cartridge Esophyx Z+ - [id number] Implanted:Qty: 1 on 04/28/2019 by Ellie Garcia MD at OR [facility] [employer] 11/03/2020 [id number] / / [id number] Description:fasteners 10@11, 10@1, 4@5, 4@7 placed at GE junction (code 0278) Stent Panc Sgl Pigtail [id number] - [id number] Implanted:Qty: 1 on 05/10/2024 by Ellie Garcia MD at ENDOSCOPY [facility] N/A: Stomach COOK : IMELDA MAYO 09/29/2025 [id number] / / [id number] documented as of this encounter Procedures Procedure Name Priority Date/Time Associated Diagnosis Comments DIFFERENTIAL, AUTOMATED Routine 05/28/2024 12:52 PM EST CBC Routine 05/28/2024 12:52 PM EST CBC Routine 05/28/2024 12:52 PM EST documented in this encounter Results * DIFFERENTIAL, AUTOMATED (05/28/2024 12:52 PM EST) WBC 7.38 4.00 - 10.80 K/uL 05/28/2024 1:00 PM EST [facility] Neutrophils % 64.0 40.0 - 75.0 % 05/28/2024 1:00 PM EST [facility] Lymphocytes % 22.1 18.0 - 42.0 % 05/28/2024 1:00 PM EST [facility] Monocytes % 8.0 1.0 - 11.0 % 05/28/2024 1:00 PM EST [facility] Eosinophils % 4.7 0.0 - 6.0 % 05/28/2024 1:00 PM EST [facility] Basophils % 1.2 0.0 - 2.0 % 05/28/2024 1:00 PM EST [facility] Absolute Neutrophils 4.72 1.80 - 7.70 K/uL 05/28/2024 1:00 PM EST [facility] Absolute Lymphocytes 1.63 1.00 - 4.80 K/ul 05/28/2024 1:00 PM EST [facility] Absolute Monocytes 0.59 0.00 - 1.10 K/uL 05/28/2024 1:00 PM EST [facility] Absolute Eosinophils 0.35 0.00 - 0.70 K/uL 05/28/2024 1:00 PM EST [facility] Absolute Basophils 0.09 0.00 - 0.20 K/uL 05/28/2024 1:00 PM EST [facility] Blood Venous blood specimen / Unknown Venipuncture / Unknown 05/28/2024 12:52 PM EST 05/28/2024 12:52 PM EST Myranda Arriazaiso FREELANCE GRAPHIC DESIGNER LAB BLOOD ORDERABLES Fi nal Result [facility] [place] [phone] * (ABNORMAL) CBC (05/28/2024 12:52 PM EST) WBC 7.38 4.00 - 10.80 K/uL 05/28/2024 1:00 PM EST [facility] RBC 4.24 3.85 - 5.15 M/uL 05/28/2024 1:00 PM EST [facility] HGB 13.5 12.0 - 15.3 g/dL 05/28/2024 1:00 PM EST [facility] HCT 39.7 36.0 - 45.2 % 05/28/2024 1:00 PM EST [facility] MCV 93.6 81.5 - 97.5 fL 05/28/2024 1:00 PM EST [facility] MCH 31.8 27.0 - 34.0 pg 05/28/2024 1:00 PM EST [facility] MCHC 34.0 32.0 - 36.0 g/dL 05/28/2024 1:00 PM EST [facility] RDW 12.2 11.5 - 15.5 % 05/28/2024 1:00 PM EST [facility] PLT 465(H) 140 - 400 K/uL 05/28/2024 1:00 PM EST [facility] MPV 8.0 6.6 - 11.1 fL 05/28/2024 1:00 PM EST [facility] Blood Venous blood specimen / Unknown Venipuncture / Unknown 05/28/2024 12:52 PM EST 05/28/2024 12:52 PM EST Myranda Arriazaiso [employer]EL[employer]APH[employer] DESIGNER LAB BLOOD ORDERABLES Fi nal Result [facility] [place] [id number] documented in this encounter Visit Diagnoses Diagnosis Abdominal pain, epigastric Chronic recurrent pancreatitis (HCC) Chronic pancreatitis documented in this encounter Advance Directives * Full Code (Latest Code Status on File) Date Activated Date Inactivated Comments 05/18/2024 3:33 PM 05/21/2024 5:10 PM This order r eflects the patients wishes and were consensually agreed upon. Question Answer Comments Discussion of Advance Directives occurred with: Patient Care Teams Pharmacology Teacher Relationship Specialty Start Date End Date Williams Hauser III, MD [address] [facility] [place] [address] PCP - General Family Medicine 10/27/22 documented as of this encounter
--- OUTSIDE RECORDS SUMMARY | 2024-06-04 23:23 | External Medical Summary ---
Author Name Unknown Address Unknown Organization [id number]:[facility] - [address] [place] [address] Laboratory Report Ordering Provider Test Date Status LENY BRADLEY 05/19/2024 05:37:00 Final Less than 0.5 ng/mL: Low ris k for progression to sepsis. Review patients condition for localized infections.

0.5 to 2.0 ng/mL: Intermediate risk for progresion to sepsis. Review underlying conditions. Recommend repeat PCT after 6 hours has elapsed.

Greater than 2.0 ng/mL: high risk for progression to sepsis unless other causes are known. Observation Date Value Abnormality Reference (Units ) Status Procalcitonin [Mass/volume] in Serum or Plasma by Immunoassay 05/19/2024 05:37:00 <0.06 <0.10 (ng/mL) Final Performing Location [facility] - [address] [place] [address]
--- OUTSIDE RECORDS SUMMARY | 2024-06-04 23:23 | External Medical Summary ---
Author Name Unknown Address Unknown Organization K0G:[facility] - [address] [place] [address] Laboratory Report Ordering Provider Test Date Status KATHERINE PLEAYO 05/28/2024 12:52:32 Final Observation Date Value Abnormality Reference (Units ) Status Albumin 05/28/2024 12:52:32 4.3 3.8-5.0 (g/dL) Final AST (Aspartate aminotransferase) 05/28/2024 12:52:32 16 10-35 (U/L) Final Alk Phos 05/28/2024 12:52:32 107 35-130 (U/L) Final ALT (Alanine aminotransferase) 05/28/2024 12:52:32 26 10-35 (U/L) Final Bilirubin, Total 05/28/2024 12:52:32 0.3 <=1.2 (mg/dL) Final Bilirubin, Direct 05/28/2024 12:52:32 0.1 0.0-0.3 (mg/dL) Final Protein 05/28/2024 12:52:32 6.9 6.0-8.3 (g/dL) Final Performing Location [facility] [address] [place] [address]
--- OUTSIDE RECORDS SUMMARY | 2024-06-04 23:23 | External Medical Summary | Summary of Care ---
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 Name Role Phone Murtaza BENTON MD, Williams Payton Primary Care Provider [phone] Reason for Visit * Auth/Cert Specialty Diagnoses / Procedures Referred By Rosie briggs Referred To Contact Diagnoses Necrotizing Pancreatitis Rigo Marquez MD [address] [place] [phone] Phone: tel: fax: Admissions [facility] [address] [place] [address] Referral ID Status Reason Start Date Expiration Date Visits Re quested Visits Authorized [id number] Encounter Details Date Type Department Care Team (Latest Contact Info) Description 05/18/2024 3:11 PM EST - 05/21/2024 1:03 PM EST Hospital Encounter 5A [facility], [facility] 5th Floor [address] [place] [id number] Rigo Marquez MD [address] [place] [address] [phone] Keshav Tse MD [address] [place] [id number] Pt Handout (on AVS) Discharge Disposition: Home - Self Care Allergies Active Allergy Reactions Criticality Noted Date Comments Clindamycin Other (Please comment) 12/21/2014 Burned taste Muscle pain Doxycycline Low 08/22/2020 Other reaction(s): Metallic Taste Penicillins Unknown 10/07/2007 As a child Other reaction(s): UNKNOWN, CHILD ALLERGY documented as of this encounter (statuses as of 05/22/2024) Medications NATURAL SUPPLEMENT Take by mouth daily. Medical marijuana Active Loratadine 10 MG Oral Tablet Take 1 Tablet by mouth in the morning. Active Fluticasone Propionate 50 MCG/ACT Nasal Suspension Administer 1 [place] into nostril in the morning. Active Ondansetron [...] breakfast. 30 Capsule 3 04/15/19 25 Active busPIRone HCl 15 MG Oral Tablet (Buspar) TAKE 1 TABLET BY MOUTH EVERY MORNING AND 1 TAB AT BEDTIME 180 Tablet 2 04/22/19 25 Active Polyethylene Glycol 3350 17 GM Oral Packet (Miralax) Take 1 Packet by mouth 2 times a day as needed for Constipation. 14 Each 05/21/19 25 Active Docusate Sodium 100 MG Oral Capsule (Colace) Take 1 Capsule by mouth 2 times a day as needed for Constipation. 10 Capsule 05/21/19 25 Active Acetaminophen 325 MG Oral Tablet (Tylenol) Take 3 Tablets by mouth every 6 hours as needed for Fever >38C(100.5F), Pain, Mild or Pain, Moderate. 60 Tablet 05/21/19 25 Active oxyCODONE HCl 5 MG Oral Tablet (Oxy IR) Take 1 Tablet by mouth every 8 hours as needed for Pain, Severe. 10 Tablet 05/21/19 25 Active Cyclobenzaprine HCl 5 MG Oral Tablet (Flexeril)Indicat ions:Left thigh pain,Muscular pain Take 1 Tablet by mouth 2 times a day as needed for Muscle spasms. 20 Tablet 11/25/19 24 2024 Discontinued documented as of this encounter (statuses as of 05/22/2024) Active Problems Problem Noted Date Diagnosed Date [...] as of this encounter (statuses as of 05/22/2024) Resolved Problems Problem Noted Date Diagnosed Date [...] as of this encounter (statuses as of 05/22/2024) Immunizations Name Administration Dates Next Due HPV [...] s 11/04/2023 Does the household have a [facility] source of income? (Household - for ages [...] Sign Reading Time Taken Comments Blood Pressure 134/98 05/21/2024 11:08 AM EST Pulse 73 05/21/2024 11:08 AM EST Temperature 36.7 C (98.1 F) 05/21/2024 11:[address] Respiratory Rate 16 05/21/2024 11:08 AM EST Oxygen Saturation 99% 05/21/2024 11:08 AM EST Inhaled Oxygen Concentration - - Weight 70.3 kg (155 lb) 05/18/2024 3:15 PM EST Height 160 cm (5' 3") 05/18/2024 3:15 PM EST Body Mass Index 27.46 05/18/2024 3:15 PM EST documented in this [...] Zavaleta ae, RN documented in this encounter Discharge Summaries * Keshav Tse MD - 05/21/2024 10:23 AM EST Images from the original note were not included. [address] [id number] Admission Date: 05/18/2024 Discharge Date: 05/21/2024 RECOMMENDED TO DO FOR NEXT PROVIDER(S): Cbc, bmp and hepatic function panel in 7 days. Please make sure she follows up with GI in 2 weeks from discharge. REASON(S) FOR MEDICATION CHANGE(S): - prn tylenol and oxycodone for pain. - prn laxatives for constipation. DISPOSITION ON DISCHARGE: home Active Hospital Problems Diagnosis *Principal Diagnosis - Pancreatitis Pancreatic divisum Irritable bowel syndrome with constipation Medical marijuana use Major depressive disorder, recurrent, mild (HCC) DWAIN (generalized anxiety disorder) Resolved Hospital Problems No resolved problems to display. ADMISSION HISTORY & PHYSICAL EXAM (focused): PRESENTING PROBLEM: Abdominal Pain HPI: 38 year old female with PMH anxiety, depression, medical marijuana use, chronic pain, recurrent pancreatitis, pancreatic divisum, and other problems listed below who presents as a transfer from [facility] for evaluation of possible necrotizing pancreatitis. Patient with history of recurrent pancreatitis and previously underwent cholecystectomy and most recently on 05/10/2024 underwent ERCP and EUSwith sphincterotomy and stent placed at the minor papilla. Patient was also found to a pancreas divisum. Patient presented to [facility] ED 5 hours post procedure and had a Lipase of 657, T bili 0.4, AST 17, ALT 15, Alk phos 47. WBC count >19,000. She had a CT abdomen performed that showed the pancreatic stent and concern for acute pancreatitis in the region of the pancreatic head. Patient was treated with aggressive IV fluid resuscitation and bowel rest. Patient was discharged home on 05/15/24. Patient then presented back to [facility] yesterday due to ongoing abdominal pain and nausea. Pain was located in the epigastric/RUQ which has been typical for her pancreatitis flares. LFTs and lipase essentially unremarkable. MRCP showed findings concerning for necrotizing pancreatitis. GI was consulted who advised transfer. Case was discussed with GI at [facility] who accepted. Patient was seen in her room upon arrival. Reports pain is slightly worse due to ambulance ride. Denies nausea and diarrhea currently. No chest pain or shortness of breath. Denies lightheadedness, dizziness, diaphoresis, syncopal events. No urinary symptoms. Patient is resting in bed comfortably, hemodynamically stable Subjective Patient's past history, medications, and allergies were reviewed. Objective Physical Exam Most Recent Vital Signs: BP: 125 mmHg/75 mmHg (05/18/24 1515) Pulse: 62 (05/18/24 1515) Resp: 16 (02/19/25 1515) Temp: 36.61 C (05/18/24 1515) Temp Summary: Temp Min: 36.6 C (97.9 F) Max: 36.6 C (97.9 F) SpO2: 100 % (05/18/241514) O2 flow rate: Supplemental O2 Delivery: Room Air, None (05/18/241514) CONSTITUTIONAL: WD/WN, vitals as above EYES: PERRL, conjunctiva normal, anicteric sclerae ENMT: External ear and nose normal, oropharynx normal, no hearing impairments RESPIRATORY: Normal respiratory effort, lungs clear to auscultation CARDIOVASCULAR: Normal rate, regular rhythm, peripheral pulses normal, no edema GI: Bowel sounds normal, abdomen soft, non distended, mild epigastric/RUQ tenderness MUSCULOSKELETAL: No cyanosis or clubbing, extremities motor strength 5/5 SKIN: No rashes, warm and dry NEUROLOGIC: PERRL, EOMI, accommodation normal, no facial palsy, no dysarthria PSYCHIATRIC: Alert and oriented x 3, euthymic affect IMPRESSION: Principal Problem: Pancreatitis Active Problems: Major depressive disorder, recurrent, mild (HCC) DWAIN (generalized anxiety disorder) Medical marijuana use Pancreatic divisum Irritable bowel syndrome with constipation Resolved Problems: * No resolved hospital problems. * Recurrent Pancreatitis Hx Pancreatic Divisum Admit to med/surg Patient transferred from [facility] for concerns of possible necrotizing pancreatitis. Patient with history of recurrent pancreatitis and previously underwent cholecystectomy and most recently on 05/10/2024 underwent ERCP and EUS with sphincterotomy and stent placed at the minor papilla. Patient was alsofound to a pancreas divisum. She then presented to [facility] shortly after procedure and was admitted 05/10 - 05/15 for pancreatitis. She presented back to [facility] yesterday for ongoing abdominal pain and nausea. MRCP concerning for possible necrotizing pancreatitis. Case was discussed with GI at [facility] who recommended transfer. 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 She was initiated on iv fluids and pain controlwith both po and iv medications for different levels of pain intensity. Of note, GI did evaluate the patient during hospitalization. Antibiotics were held due to low suspicion for infection. Over the course of hospitalization, patient made steady progress. She also received medications to help move her bowels. Her diet was advanced slowly over the hospitalization and she tolerated it. She was eventually discharged home in stable condition on 05/21/2024 after she tolerated solid food. Vitals and PE stable on day of discharge BP 118/81 | Pulse 61 | Temp 36.1 C (97 F) (Temporal Artery) | Resp 16 | Ht 1.6 m (5' 3") | Wt 70.3 kg (155 lb) | SpO2 99% | BMI 27.46 kg/m | BSA 1.77 m Operations & Procedures: none Complications: none significant Significant Lab and Imaging Results: Results for orders placed or performed during the hospital encounter of 05/18/24 COMPREHENSIVE METABOLIC PANEL Result Value Ref Range BUN 7 6 - 20 mg/dL CREATININE 0.7 0.5 - 1.0 mg/dL EGFR >90 >=60 mL/min SODIUM 139 135 - 146 mmol/L POTASSIUM 4.0 3.5 - 5.1 mmol/L CHLORIDE 102 98 - 107 mmol/L CO2 30 22 - 32 mmol/L ANION GAP 7 7 - 15 mmol/L GLUCOSE 91 70 - 120 mg/dL Albumin 3.6 (L) 3.8 - 5.0 g/dL AST 16 10 - 35 U/L Alkaline Phosphatase 102 35 - 130 U/L Bilirubin, Total 0.3 <=1.2 mg/dL CALCIUM 8.9 8.4 - 10.2 mg/dL Protein 6.1 6.0 - 8.3 g/dL ALT 21 10 - 35 U/L CBC Result Value Ref Range WBC 10.68 4.00 - 10.80 K/uL RBC 3.76 3.85 - 5.15 M/uL HGB 12.0 12.0 - 15.3 g/dL HCT 36.1 36.0 - 45.2 % MCV 96.0 81.5 - 97.5 fL MCH 31.9 27.0 - 34.0 pg MCHC 33.2 32.0 - 36.0 g/dL RDW 12.9 11.5 - 15.5 % PLT 311 140 - 400 K/uL MPV 7.8 6.6 - 11.1 fL nRBCs 0 <=0 /100 WBCs LIPASE Result Value Ref Range Lipase 110 (H) 13 - 60 U/L COMPREHENSIVE METABOLIC PANEL Result Value Ref Range BUN 5 (L) 6 - 20 mg/dL CREATININE 0.8 0.5 - 1.0 mg/dL EGFR >90 >=60 mL/min SODIUM 142 135 - 146 mmol/L POTASSIUM 4.4 3.5 - 5.1 mmol/L CHLORIDE 105 98 - 107 mmol/L CO2 28 22 - 32 mmol/L ANION GAP 9 7 - 15 mmol/L GLUCOSE 105 70 - 120 mg/dL Albumin 3.3 (L) 3.8 - 5.0 g/dL AST 15 10 - 35 U/L Alkaline Phosphatase 100 35 - 130 U/L Bilirubin, Total 0.3 <=1.2 mg/dL CALCIUM 8.7 8.4 - 10.2 mg/dL Protein 6.0 6.0 - 8.3 g/dL ALT 21 10 - 35 U/L CBC Result Value Ref Range WBC 10.06 4.00 - 10.80 K/uL RBC 3.66 3.85 - 5.15 M/uL HGB 11.5 (L) 12.0 - 15.3 g/dL HCT 35.1 (L) 36.0 - 45.2 % MCV 95.9 81.5 - 97.5 fL MCH 31.4 27.0 - 34.0 pg MCHC 32.8 32.0 - 36.0 g/dL RDW 12.5 11.5 - 15.5 % PLT 272 140 - 400 K/uL MPV 7.7 6.6 - 11.1 fL nRBCs 0 <=0 /100 WBCs CRP (INFLAMMATORY MARKER) Result Value Ref Range CRP (Inflammatory Marker) 43 (H) <=5 mg/L PROCALCITONIN Result Value Ref Range Procalcitonin <0.06 <0.10 ng/mL CBC Result Value Ref Range WBC 8.67 4.00 - 10.80 K/uL RBC 3.90 3.85 - 5.15 M/uL HGB 12.1 12.0 - 15.3 g/dL HCT 37.5 36.0 - 45.2 % MCV 96.2 81.5 - 97.5 fL MCH 31.0 27.0 - 34.0 pg MCHC 32.3 32.0 - 36.0 g/dL RDW 12.2 11.5 - 15.5 % PLT 339 140 - 400 K/uL MPV 7.9 6.6 - 11.1 fL nRBCs 0 <=0 /100 WBCs BASIC METABOLIC PANEL Result Value Ref Range BUN 5 (L) 6 - 20 mg/dL CREATININE 0.8 0.5 - 1.0 mg/dL EGFR >90 >=60 mL/min SODIUM 142 135 - 146 mmol/L POTASSIUM 4.4 3.5 - 5.1 mmol/L CHLORIDE 104 98 - 107 mmol/L CO2 30 22 - 32 mmol/L ANION GAP 8 7 - 15 mmol/L GLUCOSE 92 70 - 120 mg/dL CALCIUM 9.1 8.4 - 10.2 mg/dL HEPATIC FUNCTION PANEL Result Value Ref Range Albumin 3.5 (L) 3.8 - 5.0 g/dL AST 17 10 - 35 U/L Alkaline Phosphatase 103 35 - 130 U/L ALT 23 10 - 35 U/L Bilirubin, Total 0.3 <=1.2 mg/dL Bilirubin, Direct 0.1 0.0 - 0.3 mg/dL Protein 6.1 6.0 - 8.3 g/dL Results Pending at Discharge: Lab Results Pending at Discharge: None MEDICATION UPDATES AT DISCHARGE START taking these medications INSTRUCTIONS Acetaminophen 325 MG Tablet Commonly known as: Tylenol Take 3 Tablets by mouth every 6 hours as needed for Fever >38C(100.5F), Pain, Mild or Pain, Moderate. Docusate Sodium 100 MG Capsule Commonly known as: Colace Take 1 Capsule by mouth 2 times a day as needed for Constipation. oxyCODONE 5 MG immediate release tablet Commonly known as: Oxy IR Take 1 Tablet by mouth every 8 hours as needed for Pain, Severe. Polyethylene Glycol 3350 packet Commonly known as: Miralax Take 1 Packet by mouth 2 times a day as needed for Constipation. CONTINUE taking these medications INSTRUCTIONS busPIRone 15 MG Tablet Commonly known as: Buspar TAKE 1 TABLET BY MOUTH EVERY MORNING AND 1 TAB AT BEDTIME DULoxetine 60 MG Cpep Commonly known as: Cymbalta TAKE 1 CAPSULE BY MOUTH EVERY DAY DO NOT CRUSH OR CHEW fluticasone 50 MCG/ACT nasal spray Commonly known as: Flonase Administer 1 [place] into nostril in the morning. Linzess 290 MCG Capsule Generic drug: linaCLOtide Take 1 Capsule by mouth daily before breakfast. Loratadine 10 MG Tablet Commonly known as: Claritin Take 1 Tablet by mouth in the morning. NATURAL SUPPLEMENT Take by mouth daily. Medical marijuana ondansetron 4 MG Tablet Commonly known as: Zofran Take 1 Tablet by mouth every 6 hours as needed for Nausea. pantoprazole 40 MG Tbec Commonly known as: Protonix Take 1 Tablet by mouth in the morning. traZODone 100 MG Tablet Commonly known as: Desyrel TAKE 1 TABLET BY MOUTH EVERYDAY AT BEDTIME STOP taking these medications cyclobenzaprine 5 MG Tablet Commonly known as: Flexeril SCHEDULED FOLLOW-UP: Future Appointments Appt Date/Time Provider Department 05/24/2024 11:00 AM Myranda Mckeon CRNP Gastroenterology, [facility] 05/27/2024 11:00 AM Williams Hauser III, MD [facility] 11/04/2024 8:40 AM Williams Hauser III, MD [facility] Other Information Indwelling Devices: LINES ALL Duration Peripheral Line Left Antecubital 20 Gauge 2 days Vital Signs (last recorded): Most Recent Systolic BP: 118 mmHg (05/21/24 0700) Most Recent Diastolic BP: 81 mmHg (05/21/24 07) Pulse: 61 (05/21/24 07) Resp: 16 (05/21/24 07) Most Recent Temperature: 36.11 C (05/21/24 0700) Weight: 70.3 kg (155 lb) (05/18/24 1515) SpO2: 99 % (05/21/24 07) Allergies: Clindamycin, Penicillins, and Doxycycline Activity: as tolerated Diet: low fiber diet for 3-5days and then regular diet. Code Status: Full Code Condition on Discharge: stable Isolation status: None Cognition: normal HOSPITAL CONSULTS ORDERED: GASTROENTEROLOGY CONSULT IP REFERRING PHYSICIAN: REF: JEANNETTE KENYON PRIMARY CARE PROVIDER: PCP: Williams Hauser III, MD [address] [place] [address] / [place] [address] (office) [phone] (fax) Note: To contact a physician responsible for this patients hospital care, please call [employer] [phone]. I spent a total of 35 minutes coordinating, documenting, and providing care for this patient excluding time spent in the performance of separately billed services. documented in this encounter Discharge Instructions * Discharge Instr - AVS* Keshav Tse MD - 05/21/2024 10:21 AM EST Discharge Date: 05/21/2024 The information below provides you with the instructions and the list of medications you need to betaking following discharge from the hospital. If you have any questions, please ask before leaving. If you have questions after leaving, you can reach us at the numbers below. YOUR HOSPITAL PROVIDERS: Discharging Provider: Keshav Tse MD Provider Department: Hospital Medicine To reach this Provider Thursday through Thursday (8:00 AM to 4:30 PM) for any questions or test results: Call [phone] For after-hours concerns: Call [phone] and have your provider paged, or the provider cooperative extension agent for the Department of Hospital Medicine paged. Please note, the discharging provider will not be able to provide you with any medications refills.Please discuss these with your primary care provider. Worsening Symptoms: If you have new symptoms, or your symptoms get worse, please contact your Discharge Provider or Primary Care Provider (PCP). If these providers are not available, you can go to your local [facility] or Urgent Care Clinic during their business hours. In an EMERGENCY situation: Call [phone] or go to the nearest emergency room. A BRIEF SUMMARY OF YOUR HOSPITAL STAY: You came to the hospital with: complaint of abd pain and poor po intake. Your main diagnosis at discharge was: Recurrent Pancreatitis with possible necrosis noted on imaging at [facility]. Operations & Procedures performed: none Complications: none significant Inpatient test results that are pending at discharge: none Advance Directive Documented: Advance Directive Does the Patient have an Advance Directive? No YOUR FOLLOW UP APPOINTMENTS: Primary Care Provider Information: PCP: Williams Hauser III, MD [facility] [place] / [facility] [place] [address] (office) [phone] (fax) An appointment was requested with your PCP (Williams Hauser III, MD) within one week. GI in 2 weeks. (Please take this form to this visit with your primary care physician.) You need the following studies in the future: BMP: date - in 7 days, CBC: date - in 7 days, and Hepatic Function Panel in 7 days. To be ordered and followed up by PCP. INSTRUCTIONS: Diet: Low fiber diet for 3-5 days. Then regular diet. Activity: As tolerated, No strenuous activity for 1-2 weeks, and No lifting or pushing or pulling more than 10 lbs for 1-2 weeks. Driving: Don't drive until you are off narcotics for one full week and can walk normally and firmlyapply the brake without pain. Additional Instructions: - Call your primary care physician or seek medical attention if you have worsening abd pain, nausea, vomiting, diarrhea, fatigue, fevers, chills, shortness of breath, chest pain. - Do not use alcohol products in anyway! - Use caution when standing or walking since you are at an increased risk for falls - Do not take [id number] NSAIDs (nonsteroid anti-inflammatory medications); ie. Advil, Motrin, Ibuprofen, etc. documented in this encounter Progress Notes * Shilpi Samuels MD - 05/20/2024 3:27 PM EST PROGRESS NOTE - Gastroenterology Service [facility] [address] Name: Rosalina Teran Location: [facility] [id number] Date: 05/20/2024 Time: 3:27 PM SUBJECTIVE: The patient was seen and examined, chart reviewed. 38 yr old w recurrent acute pancreatitis, pancreatic divisum, slowly improving. Tolerated a full liquid diet for breakfast and lunch w/o increased pain or nausea. Had large complete BM this am. ROS: Constitutional: No report of fever, chills or sweats Skin: No jaundice or rashes. Cardiac: No chest pain. Pulmonary: No cough or shortness of breath GI: (+) nausea and (+) abdominal pain OBJECTIVE: Vital Signs Last 24 Hours: Systolic BP: Most Recent Systolic BP Av mmHg Min: 101 mmHg Max: 135 mmHg Temperature: Most Recent Temperature Av.8 C Min: 36.39 C Max: 37.72 C Pulse: Pulse Av.9 Min: 62 Max: 76 Respirations: Resp Av Min: 16 Max: 20 SpO2: SpO2 Av.1 % Min: 96 % Max: 100 % Constitutional: No acute distress. HEENT: No conjunctival pallor, sclera anicteric. CV: Heart is regular without murmur, rub or gallop. Chest: Clear to percussion and auscultation. GI: Abdomen is soft and tender in epigastrum. There is no guarding or rebound tenderness. Bowel sounds are diminished. There are no appreciable masses or hepatosplenomegaly. There is no ascites present. Extremities: No edema. Neurology: Awake and alert. Oriented to person, place, and time. No asterixis present. LABS: Labs reviewed as indicated below: Latest Reference Range & Units 04/01/24 11:19 04/14/24 14:56 05/18/24 15:38 Lipase 13 - 60 U/L 143 (H) 32 110 (H) Latest Reference Range & Units 05/20/24 05:40 Albumin 3.8 - 5.0 g/dL 3.5 (L) AST 10 - 35 U/L 17 ALT 10 - 35 U/L 23 Alkaline Phosphatase 35 - 130 U/L 103 Bilirubin, Total <=1.2 mg/dL 0.3 Bilirubin, Direct 0.0 - 0.3 mg/dL 0.1 (L): Data is abnormally low Latest Reference Range & Units 05/20/24 05:40 SODIUM 135 - 146 mmol/L 142 POTASSIUM 3.5 - 5.1 mmol/L 4.4 CHLORIDE 98 - 107 mmol/L 104 CO2 22 - 32 mmol/L 30 BUN 6 - 20 mg/dL 5 (L) CREATININE 0.5 - 1.0 mg/dL 0.8 EGFR >=60 mL/min >90 ANION GAP 7 - 15 mmol/L 8 GLUCOSE 70 - 120 mg/dL 92 CALCIUM 8.4 - 10.2 mg/dL 9.1 Protein 6.0 - 8.3 g/dL 6.1 (L): Data is abnormally low Latest Reference Range & Units 05/20/24 05:40 SODIUM 135 - 146 mmol/L 142 POTASSIUM 3.5 - 5.1 mmol/L 4.4 CHLORIDE 98 - 107 mmol/L 104 CO2 22 - 32 mmol/L 30 BUN 6 - 20 mg/dL 5 (L) CREATININE 0.5 - 1.0 mg/dL 0.8 EGFR >=60 mL/min >90 ANION GAP 7 - 15 mmol/L 8 GLUCOSE 70 - 120 mg/dL 92 CALCIUM 8.4 - 10.2 mg/dL 9.1 Protein 6.0 - 8.3 g/dL 6.1 (L): Data is abnormally low IMPRESSION: Acute pancreatitis, slowly improving RECOMMENDATIONS: Add Boost nutritional supplement; continue full liquids. Continue Reglan at low dose, d/c on Thursday. Increase ambulation Limit narcotics. Bowel regimen. May DC IV fluids as is taking po liquids well I have discussed the case with my attending, Dr Samuels Attg add: I interviewed and examined pt, reviewed chart and labs. Pt reports less pain today; review of MAR shows that she has been using dilaudid regularly, last use at around noon. She is also using oxycodone/tylenol. She is tolerating full liquids well. Her VS ar urnemarakble. On exam, she is well appearing, smiling and laughing. Her lunch tray is at bedside - she has eaten all of the food on the lunch tray; it is completely emptied. She winces with deep pressure in her epigastrium; she has good BS and is non distended. Labs today show normal creat, normal WBC. Post ERCP pancreatitis, h/o divisum s/p minor sphincterotomy. Recs as above. Diet as tolerated. She is not currently on DVT prophylaxis but she tells me that she is walking regularly around the halls, every few hours. Please call with questions over weekend. * Luma Figueroa PA-C - 05/20/2024 8:28 AM EST Images from the original note were not included. [facility] [id number] INTERVAL HISTORY: 38 year old female with PMH significant for depression/anxiety, recurrent pancreatitis, pancreatic divisum directly admitted from [facility] ER to [facility] for concern for necrotizing pancreatitis. History: Patient underwent EUS and ERCP on 05/10/24 with the following results: EUS - Impression: - Normal esophagus. - A post [...] divisum was visualized. - No specimens collected. ERCP - Impression: - Pancreas divisum was found. A sphincterotomy was performed and then a stent was placed at the minor papilla. Post procedure, patient was admitted to inpatient care at [facility] for abdominal pain. Leukocytosis noted and CT showed pancreatitis. Conservative treatment resolved issue. Since discharge, patient is not tolerating solids stating they cause nausea and epigastric/ rUQ pain. Consuming mostly liquids and boost protein drinks Patient was discharged and "felt well" but returned to ED yesterday because "something wasn't right" ER evaluation included MRCP which was concerning for necrotizing pancreatitis. Transferred to [facility] inpatient care, as patient's GI specialist is at [facility]. Seen by gastro x 2 Recommendations as of 05/19/2024: Continue IV fluid hydration, but will decrease to 100cc/hr. Patient taking pain medications every 4hours but asking to eat more solid food. OK to advance to full liquid diet. Will give one dose of Relistor. Patient reports good pain control with Scheduled tylenol, PRN Oxy IR and PRN hydromorphone. No N/V Denies fever, chills. Still has stabbing epigastric pain, but improved. Full Liquid diet today. No additional concerns or complaints. Patient prefers to remain inpatient to ensure her ability to tolerate oral intake. Last 05/17/24 Objective Physical Exam Most Recent Vital Signs: BP: 123 mmHg/80 mmHg (05/20/24 1043) Pulse: 62 (05/20/241042) Resp: 16 (05/20/241042) Temp: 36.5 C (05/20/241042) Temp Summary: Temp Min: 36.4 C (97.5 F) Max: 37.7 C (99.9 F) SpO2: 100 % (05/20/241042) O2 flow rate: Supplemental O2 Delivery: Room Air, None (05/20/241042) Constitutional: NAD. Respirations and speech are unlabored. HEENT: normal: normocephalic, atraumatic; no masses, tenderness, or adenopathy CV: normal rate and rhythm, no murmur, gallops or rub Chest: normal respiratory effort, lungs clear to auscultation and percussion Abdomen: (+) Nondistended abdomen. BS hyperactive. Soft. Tender with palpation of epigastric and RUQ. Skin: warm, dry, intact: Peripheral Line Left Antecubital 20 Gauge (Active) Number of days: 2 STUDIES: Encounter Orders Labs and other studies reviewed with pertinent findings noted below: Lab results within last 7 days (see chart for full results) Units 05/20/24 0540 05/19/24 0537 05/18/24 1538 HGB g/dL 12.1 11.5* 12.0 HCT % 37.5 35.1* 36.1 WBC K/uL 8.67 10.06 10.68 PLT K/uL 339 272 311 Lab results within last 7 days (see chart for full results) Units 05/20/24 0540 05/19/24 0537 05/18/24 1538 SODIUM mmol/L 142 142 139 POTASSIUM mmol/L 4.4 4.4 4.0 CHLORIDE mmol/L 104 105 102 CO2 mmol/L 30 28 30 BUN mg/dL 5* 5* 7 CREATININE mg/dL 0.8 0.8 0.7 Assessment and Plan IMPRESSION : Principal Problem: Pancreatitis Active Problems: Major depressive disorder, recurrent, mild (HCC) DWAIN (generalized anxiety disorder) Medical marijuana use Pancreatic divisum Irritable bowel syndrome with constipation Resolved Problems: * No resolved hospital problems. * DIFFERENTIAL AND PLAN: Principal Problem: Pancreatitis - patient progressed to liquid diet yesterday. - Ensure ability to tolerate oral intake before discharge. - advance diet, per GI recommendations Active Problems: Major depressive disorder, recurrent, mild (HCC) DWAIN (generalized anxiety disorder) - continue Buspar - continue Trazodone - continue cymbalta Medical marijuana use Pancreatic divisum Irritable bowel syndrome with constipation - Received dose of Relistor - no BM - Add colace and miralax 2:40 PM Discussed recommendations with GI. Add Boost, Still full liquid diet for one additional day D/C IV fluids Encourage patient to ambulate. PHARMACOLOGIC VTE PROPHYLAXIS: This patient does not have an active medication from one of the medication groupers. CODE STATUS: Full Code EXPECTED DISCHARGE DATE: 05/22/2024 I spent a total of 34 minutes coordinating, documenting, and providing care for this patient excluding time spent in the performance of separately billed services or time spent by another provider/QHP. Luma Figueroa PA-C 05/20/24 Cosigned by Keshav Tse MD at 05/20/2024 6:13 PM EST Associated attestation - Keshav Tse MD - 05/20/2024 6:13 PM EST I have reviewed the advanced practitioner's documentation on the date of service referenced in note, and I agree with, and take responsibility for the plan of care. I spent a total of 15 minutes coordinating, documenting, and providing care for this patient excluding time spent in the performance of separately billed services or time spent by another provider/QHP. * Shilpi Samuels MD - 05/19/2024 1:57 PM EST PROGRESS NOTE - Gastroenterology Service [facility]-[address] [id number] Name: Rosalina Teran Location: [facility] 5A-5109/W Date: 05/19/2024 Time: 1:57 PM SUBJECTIVE: The patient was seen and examined, chart reviewed. Patient continues with abdominal pain. Now taking pain medication q4 hours. No significant n/v. Afebrile. Labs stable as below. Tolerating clear liquids. Asking to eat solid foods. ROS: Constitutional: No report of fever, chills or sweats Skin: No jaundice or rashes. Cardiac: No chest pain. Pulmonary: No cough or shortness of breath GI: Per HPI, otherwise negative. OBJECTIVE: Vital Signs Last 24 Hours: Systolic BP: Most Recent Systolic BP Av.3 mmHg Min: 95 mmHg Max: 140 mmHg Temperature: Most Recent Temperature Av.5 C Min: 35.78 C Max: 37.39 C Pulse: Pulse Av.5 Min: 59 Max: 110 Respirations: Resp Av Min: 16 Max: 16 SpO2: SpO2 Av.2 % Min: 95 % Max: 100 % Constitutional: No acute distress. HEENT: No conjunctival pallor, sclera anicteric. CV: normal rate, normal rhythm Chest: normal respiratory effort, breath sounds normal GI: soft, normal bowel sounds, nondistended, (+) mild tenderness across the upper abdomen Extremities: No edema. LABS: Labs reviewed as indicated below: Recent Results (from the past 24 hours) COMPREHENSIVE METABOLIC PANEL Collection Time: 05/18/24 3:38 PM Result Value Ref Range BUN 7 6 - 20 mg/dL CREATININE 0.7 0.5 - 1.0 mg/dL EGFR >90 >=60 mL/min SODIUM 139 135 - 146 mmol/L POTASSIUM 4.0 3.5 - 5.1 mmol/L CHLORIDE 102 98 - 107 mmol/L CO2 30 22 - 32 mmol/L ANION GAP 7 7 - 15 mmol/L GLUCOSE 91 70 - 120 mg/dL Albumin 3.6 (L) 3.8 - 5.0 g/dL AST 16 10 - 35 U/L Alkaline Phosphatase 102 35 - 130 U/L Bilirubin, Total 0.3 <=1.2 mg/dL CALCIUM 8.9 8.4 - 10.2 mg/dL Protein 6.1 6.0 - 8.3 g/dL ALT 21 10 - 35 U/L CBC Collection Time: 05/18/24 3:38 PM Result Value Ref Range WBC 10.68 4.00 - 10.80 K/uL RBC 3.76 3.85 - 5.15 M/uL HGB 12.0 12.0 - 15.3 g/dL HCT 36.1 36.0 - 45.2 % MCV 96.0 81.5 - 97.5 fL MCH 31.9 27.0 - 34.0 pg MCHC 33.2 32.0 - 36.0 g/dL RDW 12.9 11.5 - 15.5 % PLT 311 140 - 400 K/uL MPV 7.8 6.6 - 11.1 fL nRBCs 0 <=0 /100 WBCs LIPASE Collection Time: 05/18/24 3:38 PM Result Value Ref Range Lipase 110 (H) 13 - 60 U/L COMPREHENSIVE METABOLIC PANEL Collection Time: 05/19/24 5:37 AM Result Value Ref Range BUN 5 (L) 6 - 20 mg/dL CREATININE 0.8 0.5 - 1.0 mg/dL EGFR >90 >=60 mL/min SODIUM 142 135 - 146 mmol/L POTASSIUM 4.4 3.5 - 5.1 mmol/L CHLORIDE 105 98 - 107 mmol/L CO2 28 22 - 32 mmol/L ANION GAP 9 7 - 15 mmol/L GLUCOSE 105 70 - 120 mg/dL Albumin 3.3 (L) 3.8 - 5.0 g/dL AST 15 10 - 35 U/L Alkaline Phosphatase 100 35 - 130 U/L Bilirubin, Total 0.3 <=1.2 mg/dL CALCIUM 8.7 8.4 - 10.2 mg/dL Protein 6.0 6.0 - 8.3 g/dL ALT 21 10 - 35 U/L CBC Collection Time: 05/19/24 5:37 AM Result Value Ref Range WBC 10.06 4.00 - 10.80 K/uL RBC 3.66 3.85 - 5.15 M/uL HGB 11.5 (L) 12.0 - 15.3 g/dL HCT 35.1 (L) 36.0 - 45.2 % MCV 95.9 81.5 - 97.5 fL MCH 31.4 27.0 - 34.0 pg MCHC 32.8 32.0 - 36.0 g/dL RDW 12.5 11.5 - 15.5 % PLT 272 140 - 400 K/uL MPV 7.7 6.6 - 11.1 fL nRBCs 0 <=0 /100 WBCs CRP (INFLAMMATORY MARKER) Collection Time: 05/19/24 5:37 AM Result Value Ref Range CRP (Inflammatory Marker) 43 (H) <=5 mg/L PROCALCITONIN Collection Time: 05/19/24 5:37 AM Result Value Ref Range Procalcitonin <0.06 <0.10 ng/mL IMPRESSION: 38 year old female with a hx of recurrent pancreatitis and pancreatic divisum, admittedas a transfer from [facility] for further management with ongoing abdominal pain. RECOMMENDATIONS: Continue IV fluid hydration, but will decrease to 100cc/hr. Patient taking pain medications every 4hours but asking to eat more solid food. OK to advance to full liquid diet. Will give one dose of Relistor. I will discuss the case with my attending, Dr Samuels. Attg Add: I interviewed and examined pt, reviewed chart and labs. Pt reports abd pain, but also asking for more food. VS unremarkable. On exam, she is crying, and winces with palpation of her upper abdomen. CRP 43, o/w labs WNL. Pancreatitis. She may also have other reasons for pain - dysmotility, cannabinoid withdrawal, functional pain. Cont supportive care, although would try to minimize narc use. Diet as tolerated. * Luma Figueroa PA-C - 05/19/2024 9:55 AM EST Images from the original note were not included. [facility] 5A-5109/W INTERVAL HISTORY: 38 year old female with PMH significant for depression/anxiety, recurrent pancreatitis, pancreatic divisum directly admitted from [facility] ER to [facility] for concern for necrotizing pancreatitis. History: Patient underwent EUS and ERCP on 05/10/24 with the following results: EUS - Impression: - Normal esophagus. - A post [...] divisum was visualized. - No specimens collected. ERCP - Impression: - Pancreas divisum was found. A sphincterotomy was performed and then a stent was placed at the minor papilla. Post procedure, patient was admitted to inpatient care at [facility] for abdominal pain. Leukocytosis noted and CT showed pancreatitis. Conservative treatment resolved issue. Since discharge, patient is not tolerating solids stating they cause nausea and epigastric/ rUQ pain. Consuming mostly liquids and boost protein drinks Patient was discharged and "felt well" but returned to ED yesterday because "something wasn't right" ER evaluation included MRCP which was concerning for necrotizing pancreatitis. Transferred to [facility] inpatient care, as patient's GI specialist is at [facility]. Since then, patient reports pain to epigastric and RUQ. Controlled with Hydromorphone 2 mg. No N/V No diarrhea Last BM on Thursday. Tolerating clear liquid diet, but patient expresses frustration at situation and difference of opinion between [facility] and [facility] GI. GI consult from 05/18/24 with the following recommendations: IMPRESSION: Rosalina Teran is a(n) 38 year old female with a hx of recurrent pancreatitis and pancreatic divisum, admitted as a transfer for management of the same. RECOMMENDATIONS/PLAN: Conservative management with IV fluids (Isolyte) 200cc/hr initially. Clear liquid diet. CRP with AM labs. Will continue to follow. Objective Physical Exam Most Recent Vital Signs: BP: 114 mmHg/80 mmHg (05/19/24 1106) Pulse: 59 (05/19/24 1106) Resp: 16 (05/19/24 1106) Temp: 36.39 C (05/19/24 1106) Temp Summary: Temp Min: 35.8 C (96.4 F) Max: 37.4 C (99.3 F) SpO2: 100 % (05/19/24 1106) O2 flow rate: Supplemental O2 Delivery: Room Air, None (05/19/24 1106) Constitutional: Well appearing patient in NAD. Respirations and speech are unlabored. Just prior toevaluation, patient had consumed clear liquid breakfast without difficulty HEENT: normal: normocephalic, atraumatic; no masses, tenderness, or adenopathy CV: normal rate and rhythm, no murmur, gallops or rub Chest: normal respiratory effort, lungs clear to auscultation and percussion Abdomen: (+) no significant distension noted on examination. BS with increased activity in all 4 quads. Soft, but exquisitely tender to palpation of epigastric and RUQ Extremities: no clubbing, cyanosis, or edema, otherwise grossly normal, warm, and dry Skin: warm, dry, intact: Neuro: alert, oriented to person, place, and time, normal mental status exam, gait normal Peripheral Line Left Antecubital 20 Gauge (Active) Number of days: 1 STUDIES: Encounter Orders Labs and other studies reviewed with pertinent findings noted below: Lab results within last 7 days (see chart for full results) Units 05/19/24 0537 05/18/24 1538 HGB g/dL 11.5* 12.0 HCT % 35.1* 36.1 WBC K/uL 10.06 10.68 PLT K/uL 272 311 Lab results within last 7 days (see chart for full results) Units 05/19/24 0537 05/18/24 1538 SODIUM mmol/L 142 139 POTASSIUM mmol/L 4.4 4.0 CHLORIDE mmol/L 105 102 CO2 mmol/L 28 30 BUN mg/dL 5* 7 CREATININE mg/dL 0.8 0.7 CRP today: 43 Procalcitonin: 0.06 Assessment and Plan IMPRESSION : Principal Problem: Pancreatitis Active Problems: Major depressive disorder, recurrent, mild (HCC) DWAIN (generalized anxiety disorder) Medical marijuana use Pancreatic divisum Irritable bowel syndrome with constipation Resolved Problems: * No resolved hospital problems. * DIFFERENTIAL AND PLAN: Principal Problem: Pancreatitis Pancreatic divisum - continue clear liquid diet. Advance at GI recommendations. - GI to see patient today (GI to page hospitalist provider when rounding so we may see patient together) Active Problems: Major depressive disorder, recurrent, mild (HCC) DWAIN (generalized anxiety disorder) - Continue buspar and Cymbalta Medical marijuana use PHARMACOLOGIC VTE PROPHYLAXIS: This patient does not have an active medication from one of the medication groupers. CODE STATUS: Full Code EXPECTED DISCHARGE DATE: 05/23/2024 I spent a total of 45 minutes coordinating, documenting, and providing care for this patient excluding time spent in the performance of separately billed services or time spent by another provider/QHP. Cosigned by Keshav Tse MD at 05/19/2024 3:57 PM EST Associated attestation - Keshav Tse MD - 05/19/2024 3:57 PM EST I have reviewed the advanced practitioner's documentation on the date of service referenced in note, and I agree with, and take responsibility for the plan of care. I spent a total of 20 minutes coordinating, documenting, and providing care for this patient excluding time spent in the performance of separately billed services or time spent by another provider/QHP. Patient reports she continues to feel some abdominal discomfort and bloating sensation. She is tolerating liquids okay but has been unable to tolerate solids. She did have a few questions about her current condition and the plan moving forward. I did my bestto answer them for her. She expressed satisfaction with my responses and is thankful. I do appreciate input by GI. Currently no signs of infective pancreatitis. Although there is some concern on necrotizing pancreatitis, given her WBC is normal with no fever we will hold off on further antibiotics. Of note her CRP is elevated at 43 but procalcitonin is negative at less than 0.06. Rest of the plan per PA-Cs note. documented in this encounter H&P Notes * Nadja Levin CRNP - 05/18/2024 3:47 PM EST Images from the original note were not included. [facility] 5A-5109/W PRESENTING PROBLEM: Abdominal Pain HPI: 38 year old female with H anxiety, depression, medical marijuana use, chronic pain, recurrent pancreatitis, pancreatic divisum, and other problems listed below who presents as a transfer from [facility] for evaluation of possible necrotizing pancreatitis. Patient with history of recurrent pancreatitis and previously underwent cholecystectomy and most recently on 05/10/2024 underwent ERCP and EUSwith sphincterotomy and stent placed at the minor papilla. Patient was also found to a pancreas divisum. Patient presented to [facility] ED 5 hours post procedure and had a Lipase of 657, T bili 0.4, AST 17, ALT 15, Alk phos 47. WBC count >19,000. She had a CT abdomen performed that showed the pancreatic stent and concern for acute pancreatitis in the region of the pancreatic head. Patient was treated with aggressive IV fluid resuscitation and bowel rest. Patient was discharged home on 05/15/24. Patient then presented back to [facility] yesterday due to ongoing abdominal pain and nausea. Pain was located in the epigastric/RUQ which has been typical for her pancreatitis flares. LFTs and lipase essentially unremarkable. MRCP showed findings concerning for necrotizing pancreatitis. GI was consulted who advised transfer. Case was discussed with GI at [facility] who accepted. Patient was seen in her room upon arrival. Reports pain is slightly worse due to ambulance ride. Denies nausea and diarrhea currently. No chest pain or shortness of breath. Denies lightheadedness, dizziness, diaphoresis, syncopal events. No urinary symptoms. Patient is resting in bed comfortably, hemodynamically stable Subjective Patient's past history, medications, and allergies were reviewed. Objective Physical Exam Most Recent Vital Signs: BP: 125 mmHg/75 mmHg (05/18/24 151) Pulse: 62 (05/18/24 151) Resp: 16 (05/18/24 151) Temp: 36.61 C (05/18/24 151) Temp Summary: Temp Min: 36.6 C (97.9 F) Max: 36.6 C (97.9 F) SpO2: 100 % (05/18/24 151) O2 flow rate: Supplemental O2 Delivery: Room Air, None (05/18/241514) CONSTITUTIONAL: WD/WN, vitals as above EYES: PERRL, conjunctiva normal, anicteric sclerae ENMT: External ear and nose normal, oropharynx normal, no hearing impairments RESPIRATORY: Normal respiratory effort, lungs clear to auscultation CARDIOVASCULAR: Normal rate, regular rhythm, peripheral pulses normal, no edema GI: Bowel sounds normal, abdomen soft, non distended, mild epigastric/RUQ tenderness MUSCULOSKELETAL: No cyanosis or clubbing, extremities motor strength 5/5 SKIN: No rashes, warm and dry NEUROLOGIC: PERRL, EOMI, accommodation normal, no facial palsy, no dysarthria PSYCHIATRIC: Alert and oriented x 3, euthymic affect STUDIES: Encounter Orders Labs and other studies reviewed with pertinent findings noted below: Recent Results (from the past 24 hours) CBC Collection Time: 05/18/24 3:38 PM Result Value Ref Range WBC 10.68 4.00 - 10.80 K/uL RBC 3.76 3.85 - 5.15 M/uL HGB 12.0 12.0 - 15.3 g/dL HCT 36.1 36.0 - 45.2 % MCV 96.0 81.5 - 97.5 fL MCH 31.9 27.0 - 34.0 pg MCHC 33.2 32.0 - 36.0 g/dL RDW 12.9 11.5 - 15.5 % PLT 311 140 - 400 K/uL MPV 7.8 6.6 - 11.1 fL nRBCs 0 <=0 /100 WBCs ] Assessment and Plan IMPRESSION: Principal Problem: Pancreatitis Active Problems: Major depressive disorder, recurrent, mild (HCC) DWAIN (generalized anxiety disorder) Medical marijuana use Pancreatic divisum Irritable bowel syndrome with constipation Resolved Problems: * No resolved hospital problems. * Recurrent Pancreatitis Hx Pancreatic Divisum Admit to med/surg Patient transferred from [facility] for concerns of possible necrotizing pancreatitis. Patient with history of recurrent pancreatitis and previously underwent cholecystectomy and most recently on 05/10/2024 underwent ERCP and EUS with sphincterotomy and stent placed at the minor papilla. Patient was alsofound to a pancreas divisum. She then presented to [facility] shortly after procedure and was admitted 05/10 - 05/15 for pancreatitis. She presented back to [facility] yesterday for ongoing abdominal pain and nausea. MRCP concerning for possible necrotizing pancreatitis. Case was discussed with GI at [facility] who recommended transfer. Patient appears clinically well CBC, CMP, lipase Discussed with GI - no need for antibiotics at this time, ok to start clears, continue IVF Pain and nausea control Anxiety, Depression, Chronic Pain Continue [employer] buspirone, trazodone, duloxetine Patient also uses medical marijuana multiple times per day IBS-C Hold [employer] Linzess for now PHARMACOLOGIC VTE PROPHYLAXIS:This patient does not have an active medication from one of the medication groupers. CODE STATUS: Full Code EXPECTED DISCHARGE DATE: No information available I spent a total of 75 minutes coordinating, documenting, and providing care for this patient excluding time spent in the performance of separately billed services or time spent by another provider/QHP. Cosigned by Rigo Marquez MD at 05/18/2024 8:16 PM EST Associated attestation - Rigo Marquez MD - 05/18/2024 8:16 PM EST I have reviewed the advanced practitioner's documentation on the date of service referenced in note, and I agree with, and take responsibility for the plan of care. I spent a total of 35 minutes coordinating, documenting, and providing care for this patient excluding time spent in the performance of separately billed services or time spent by another provider/QHP. Rigo Marquez MD documented in this encounter Consult Notes * Shilpi Samuels MD - 05/18/2024 4:20 PM ESTAssociated Order(s): GASTROENTEROLOGY CONSULT IP CONSULT - Gastroenterology [facility] [address] Name: Rosalina Teran Location: [facility] 5A-5109/W Date: 05/18/2024 Time: 4:21 PM REQUESTING SERVICE: medicine REASON FOR CONSULT: pancreatitis HPI: Rosalina Teran is a 38 year old female with a hx of recurrent pancreatitis/pancreatic divisum, s/p prior cholecystectomy. Had EUS/ERCP 05/10/24. EUS - Impression: - Normal esophagus. - A post [...] divisum was visualized. - No specimens collected. ERCP - Impression: - Pancreas divisum was found. A sphincterotomy was performed and then a stent was placed at the minor papilla. Admitted to [facility] post procedure with abdominal pain and work up showed leukocytosis and CT with evidence of acute pancreatitis. She was treated conservatively with bowel rest and IV fluids. Patient states she felt good for a few days after discharge, but then again presented to [facility] on Thursday and was re-admitted. Stated she was feeling very "washed out" and just had the feeling that something "was not right." Did not have much pain initially, but the pain has been slowly evolving. Drinking lots of liquids - Boost, water, eating applesauce, pudding. MRCP done at [facility] showed possible necrotizing pancreatitis Labs unremarkable. She was transferred here for ongoing care. Feeling pretty good at the present time, though she does report mild upper abdominal pain. No significant n/v. Keeping down liquids. Hungry. Typically takes Linzess for constipation. Has not taken this in a few days. She did have a non-bloody BM yesterday. HISTORY: Past Medical History: Past Medical History: Diagnosis Date Depressive disorder, not elsewhere classified 05-28 not currently on meds Early onset of delivery 05/16/01 Excessive or frequent menstruation Past Surgical History: Past Surgical History: Procedure Laterality Date COLONOSCOPY, DIAGNOSTIC (RECTUM) 03/08/2020 fair prep, normal / COLONOSCOPY FLEXIBLE PROXIMAL DIAGNOSTIC performed by Ellie Garcia MD at ENDOSCOPY [facility] COLONOSCOPY, DIAGNOSTIC (RECTUM) 04/28/2023 hemorrhoids/COLONOSCOPY FLEXIBLE PROXIMAL DIAGNOSTIC performed by Ellie Garcia MD at ENDOSCOPY [facility] EDG FLEX, ORAL, W/ FUNDOPLASY N/A 04/28/2019 esophyX transforal fundopllication performed/normal/ESOPHAGOGASTRODUODENOSCOPY (EGD), FLEXIBLE, TRANSORAL, DIAGNOSTIC TIF's Proc performed by Ellie Garcia MD at OR [facility] EGD, FLEXIBLE, DIAGNOSTIC 12/17/2017 reflux esophagitis/ESOPHAGOGASTRODUODENOSCOPY (EGD), FLEXIBLE, TRANSORAL, DIAGNOSTIC performed by Ellie Garcia MD at ENDOSCOPY [facility] EGD, FLEXIBLE, DIAGNOSTIC 02/21/2019 acid reflux on bx/ESOPHAGOGASTRODUODENOSCOPY (EGD), FLEXIBLE, TRANSORAL, DIAGNOSTIC performed by Ellie Garcia MD at ENDOSCOPY [facility] EGD, FLEXIBLE, DIAGNOSTIC 03/04/2019 w/ [facility] EGD, FLEXIBLE, DIAGNOSTIC 07/22/2022 normal / ESOPHAGOGASTRODUODENOSCOPY (EGD), FLEXIBLE, TRANSORAL, DIAGNOSTIC performed by Ellie Garcia MD at ENDOSCOPY [facility] EGD, W/ENDOSCOPIC US 07/22/2022 normal / ESOPHAGOGASTRODUODENOSCOPY (EGD), FLEXIBLE, TRANSORAL, ENDOSCOPIC ULTRASOUND performed by Ellie Garcia MD at ENDOSCOPY [facility] EGD, W/ENDOSCOPIC US 05/10/2024 ESOPHAGOGASTRODUODENOSCOPY (EGD), FLEXIBLE, TRANSORAL, ENDOSCOPIC ULTRASOUND performed by Ellie Garcia MD at ENDOSCOPY [facility] ERCP, DIAGNOSTIC, SPECIMEN COLLECTION 05/10/2024 ENDOSCOPIC RETROGRADE CHOLANGIOPANCREATOGRAPHY (ERCP) DIAGNOSTIC performed by Ellie Garcia MD at [facility] HYSTEROSCOPY;ENDOMETRIAL ABLAT 03/17/2012 LAP;W/HYSTERECTOMY 12/07/2015 with right salpingo-oophheorectomy LAPAROSCOPY; CHOLECYSTECTOMY 08/22/2020 Dr Katherine Garvin LIGATE/CUT OVIDUCT(S) 09/01/2005 [place] PAP SCREEN 11/20/2011 wnl Social History: Social History Tobacco Use Smoking status: Former Current packs/day: 0.00 Average packs/day: 1 pack/day for 10.0 years (10.0 ttl pk-yrs) Types: Cigarettes Start date: 10/17/2004 Quit date: 10/17/2014 Years since quittin.5 Smokeless tobacco: Never Vaping Use Vaping status: Never Used Substance Use Topics Alcohol use: Not Currently Drug use: Yes Types: Marijuana Comment: Marijuana- daily Family History: Family History Problem Relation Name Age of Onset Thyroid Disorder Mother Neurological Disorder Father brain aneurysm Alcohol and Other Disorders Associated Grandfather (Paternal) alcohol Alcohol and Other Disorders Associated Uncle (Unspecified) alcohol Allergies: Clindamycin, Penicillins, and Doxycycline ROS: Constitutional: (-) fever Eyes: (-) negative, no scleral icterus, pain, blurred vision, or redness ENT: (-) negative: no acute hearing loss, sinus, ear or throat problems Cardiovascular: (-) chest pain Pulmonary: (-) cough and (-) dyspnea Abdominal/GI: as per HPI, otherwise negative Musculoskeletal: (-) negative: no joint swelling or tenderness Endocrine: (-) heat intolerance and (-) cold intolerance Hematology/oncology: (-) negative: no night sweats, masses, or swollen nodes Skin: (-) negative: no rash or jaundice Neurology: (-) negative: no focal neurologic defect or confusion Female : (-) dysuria, (-) hematuria PHYSICAL EXAMINATION: Most Recent Vital Signs: BP: 125 mmHg/75 mmHg (05/18/241514) Pulse: 62 (05/18/241514) Resp: 16 (05/18/241514) Temp: 36.61 C (05/18/241514) Temp Summary: Temp Min: 36.6 C (97.9 F) Max: 36.6 C (97.9 F) SpO2: 100 % (05/18/241514) O2 flow rate: Supplemental O2 Delivery: Room Air, None (05/18/241514) Vital Signs Last 24 Hours: Systolic BP: Most Recent Systolic BP Av mmHg Min: 125 mmHg Max: 125 mmHg Temperature: Most Recent Temperature Av.61 C Min: 36.61 C Max: 36.61 C Pulse: Pulse Av Min: 62 Max: 62 Respirations: Resp Av Min: 16 Max: 16 SpO2: SpO2 Av % Min: 100 % Max: 100 % Constitutional: no acute distress HEENT: normal: normocephalic, atraumatic Eyes: no scleral icterus, redness, or injection Neck: supple, normal range of motion CV: normal rate, normal rhythm Chest: normal respiratory effort, lungs clear to auscultation with equal chest exertion Abdomen: soft, normal bowel sounds, mild epigastric tenderness to palpation , nondistended Musculoskeletal: (-) no joint effusions or tenderness Extremities: no edema Skin: warm and dry, no rashes Neuro: alert Psych: normal mood and affect, nonsuicidal LABS: Labs reviewed. Recent Results (from the past 24 hours) COMPREHENSIVE METABOLIC PANEL Collection Time: 05/18/24 3:38 PM Result Value Ref Range BUN 7 6 - 20 mg/dL CREATININE 0.7 0.5 - 1.0 mg/dL EGFR >90 >=60 mL/min SODIUM 139 135 - 146 mmol/L POTASSIUM 4.0 3.5 - 5.1 mmol/L CHLORIDE 102 98 - 107 mmol/L CO2 30 22 - 32 mmol/L ANION GAP 7 7 - 15 mmol/L GLUCOSE 91 70 - 120 mg/dL Albumin 3.6 (L) 3.8 - 5.0 g/dL AST 16 10 - 35 U/L Alkaline Phosphatase 102 35 - 130 U/L Bilirubin, Total 0.3 <=1.2 mg/dL CALCIUM 8.9 8.4 - 10.2 mg/dL Protein 6.1 6.0 - 8.3 g/dL ALT 21 10 - 35 U/L CBC Collection Time: 05/18/24 3:38 PM Result Value Ref Range WBC 10.68 4.00 - 10.80 K/uL RBC 3.76 3.85 - 5.15 M/uL HGB 12.0 12.0 - 15.3 g/dL HCT 36.1 36.0 - 45.2 % MCV 96.0 81.5 - 97.5 fL MCH 31.9 27.0 - 34.0 pg MCHC 33.2 32.0 - 36.0 g/dL RDW 12.9 11.5 - 15.5 % PLT 311 140 - 400 K/uL MPV 7.8 6.6 - 11.1 fL nRBCs 0 <=0 /100 WBCs LIPASE Collection Time: 05/18/24 3:38 PM Result Value Ref Range Lipase 110 (H) 13 - 60 U/L IMPRESSION: Rosalina Teran is a(n) 38 year old female with a hx of recurrent pancreatitis and pancreatic divisum, admitted as a transfer for management of the same. RECOMMENDATIONS/PLAN: Conservative management with IV fluids (Isolyte) 200cc/hr initially. Clear liquid diet. CRP with AM labs. Will continue to follow. I have discussed the case with my attending, Dr Samuels. Attg add (late entry): I interviewed and examined pt, reviewed chart and labs. Pt with persistence of abdominal pain since discharge from [facility] on Thursday. She is tolerating liquids, but had discomfortwith attempt at solid food on Thursday. She presented to [facility] ER for complaint of weakness and light headedness, and was transferred to own out of concern that she had necrotizing pancreatitis. Imaging from [facility] reviewed - fullness around head/uncinate. On exam, she looks well, and is asking for food. She has mild abd tenderness with epigastric palpation. Her mucus membranes are dry. Labs reviewed. Will plan hydration, PO challenge. If she fails PO challenge, would consider post-pyloric feeding. Would ask hospitalist service to minimize narc use. documented in this encounter Nursing Notes * Bev Miranda, RN - 05/21/2024 11:52 AM EST 0800: Assessment completed by this RN. Pt is Aox4 laying in bed. Pt denies pain and nausea. Pt states that she is passing gas. See flowsheets for additional info. Call perez within reach. Bed at low level. 0930: Pt tolerated eating breakfast. Denies pain and nausea at this time. 1305: Discharge instructions and education completed. Questions answered. Pt verbalized that she understood. Iv removed, pressure applied. Pt dressed into home clothing. Belongings bagged and sent with pt. Pt ambulated to private vehicle. * Sangita Becerra RN - 05/18/2024 3:51 PM EST Dual Licensed Skin Assessment completed by Sangita Becerra RN and Poonam Zavaleta RN. The patient is/has a N/A Skin Breakdown (includes non blanchable erythema): No * Sangita Becerra RN - 05/18/2024 3:46 PM EST Pt arrived from [facility] for "necrotizing pancreatitis". Pt stated she had an ERCP last Thursday and has had pain ever since. Pt is alert and oriented. Admission questions and assessment completed. Pt was oriented to room and call perez system. documented in this encounter Miscellaneous Notes * Pt Handout (on AVS) - Jannet Mcintyre RN - 05/21/2024 9:19 AM EST Images from the original note were not included. Chronic Pancreatitis - Video Chronic pancreatitis is a persistent inflammation of the pancreas, the gland that secretes digestive enzymes and the hormones insulin and glucagon. Alcohol abuse is the most common cause of this condition. This video discusses how this condition develops and what treatment your doctor may recommend. To view the video go to this web address: [email or web address] Or, scan this QR code with your smart phone Last Reviewed Date: 2019 00:00:00 [id number] [employer]. All rights reserved. This information is not intended as a substitute for professional medical care. Always follow your healthcare professional's instructions. * Pt Handout (on AVS) - Jannet Mcintyre RN - 05/21/2024 9:19 AM EST 613 Pancreatic Pseudocysts What are pancreatic pseudocysts? Pancreatic pseudocysts are collections of leaked pancreatic fluids. They may form next to the pancreas during pancreatitis. The pancreas is an organ that sits behind your stomach. It makes fluids that flow through a duct into the small intestine. These fluids help you digest food. The pancreas also releases hormones to help control blood sugar. This includes insulin. Pancreatitis is inflammation of the pancreas. When the pancreas gets inflamed, it may leak digestive enzymes. This damages the pancreas. It causes collections of fluid to form. These are called pancreatic pseudocysts. Pancreatic pseudocysts are different from true pancreatic cysts. Both cysts and pseudocysts are collections of fluid. A true cyst is a closed structure. It has a lining of cells that separates it from the nearby tissue. A pseudocyst isn?t closed. It doesn?t have a lining of cells it fromthe nearby tissue. This difference is important. The cause of these conditions and treatments may vary. Also, some true cysts are cancer. But pancreatic pseudocysts rarely are. Pancreatic pseudocysts are not the same thing as pancreatic abscesses. These abscesses are also known as walled-off pancreatic necrosis. Abscesses that form during pancreatitis contain fluid and semisolid parts. These usually don't go away on their own and need treatment to be removed. Pseudocysts contain only fluid. Pancreatic pseudocysts happen in around 1 in 10 people with chronic pancreatitis. It?s more common in people assigned male at than in others. It can affect people of all ages. What causes pancreatic pseudocysts? Pseudocysts form when the cells of the pancreas become inflamed or are injured. Pancreatic enzymes start to leak. Leaking of the enzymes harms the tissue of the pancreas. Pancreatic pseudocysts are more common after an episode of sudden (acute) pancreatitis. People withchronic pancreatitis more often get pseudocysts. They may also form if you have long-term pancreas inflammation (chronic pancreatitis). Having gallstones and drinking a lot of alcohol are the 2 most common causes of pancreatitis. Some other causes of it include: Pancreas injury Pancreas infection Pancreatic tumor High calcium levels in your blood Very high levels of blood fats (cholesterol) Pancreatic damage from medicines Autoimmune diseases Conditions that run in your family that harm the pancreas, such as cystic fibrosis Who is at risk for pancreatic pseudocysts? You may have a higher risk for pseudocysts if you have a health issue that can cause pancreatitis. These include gallstones. You may be able to reduce your risk by treating your health condition. Drinking less alcohol may also lower your risk. What are the symptoms of pancreatic pseudocysts? Symptoms of pancreatitis and pseudocysts may include: Stomach pain. This may go around to your back. Fever Swollen belly (abdomen) Nausea and vomiting An abdominal mass found on physical exam Yellowing of the skin or eyes (jaundice) Severe pancreatitis may also cause fluid loss (dehydration) and low blood pressure. Complications from pseudocysts may cause other symptoms. Sometimes you may not have any symptoms. The pseudocyst might show up on an imaging test done for another reason. How are pancreatic pseudocysts diagnosed? Your healthcare provider will ask about your health history, symptoms, and other health conditions.They will also give you an exam, focusing on your belly. You may have tests. These may include: Tests that look for high levels of pancreatic enzymes in your blood Tests for other substances. These include sodium, potassium, and glucose. Tests to find the cause of the pancreatitis. These include tests for blood fats. Imaging tests. These may include an abdominal ultrasound, CT scan or MRI. Your healthcare provider will rule out other causes of your symptoms. They will check you for an ulcer, gallbladder inflammation, and pancreatic cancer. Your healthcare provider can often confirm a pseudocyst with CT or with another imaging test, such as MRI. If the diagnosis is still unclear, your healthcare team may take a sample of the fluid in your cyst. This test is done with a long, thin needle and imaging guidance. Your healthcare team will need to see if you have a pseudocyst instead of a true pancreatic cyst (which might be cancer) or a pus-filled infection (abscess). How are pancreatic pseudocysts treated? Treatment often happens in 2 parts. You will have treatment for pancreatitis and treatment for the pseudocyst. To treat the pancreatitis, you may need: Rest IV (intravenous) fluids Pain medicines Medicines to prevent vomiting You may also need nasogastric feedings. In nasogastric feeding, you get nutrition in liquid form. You will get it through a long, thin tube. This tube is put through your nose and into your stomach. Sometimes the tube is placed into a part of the small intestine. This is called nasojejunal feeding.You may also not be able to eat or drink anything for a while so that your pancreas can rest. Treatment for the pseudocyst may vary. Many pseudocysts will go away on their own with supportive care. Your healthcare provider may just watch your pseudocyst. Your healthcare provider will carefully monitor you for symptoms of complications. You may also need another imaging test to check if yourpseudocyst goes away. If your pseudocyst is large, causes symptoms, or hasn?t gone away over time, your healthcare provider may treat it. They may put a thin tube (catheter) through your belly to drain the pseudocyst. This is done with the help of medical imaging. Or the cyst may be drained endoscopically. This means itmay be done by entering the pancreatic pseudocyst through your stomach, or the first part of the small intestine (duodenum). In other cases, you may need surgery to drain your pseudocyst. What are possible complications of pancreatic pseudocysts? Pseudocysts can cause severe issues. They can even cause if they are not treated right away. Most problems are fairly uncommon. Possible complications include: Cyst infection. This may lead to sepsis and shock. Cyst hemorrhage Bleeding into your spleen or a blood clot in a spleen vein Blockage of the bile duct. This may cause yellowing of your skin and eyes (jaundice). Portal hypertension Gastric outlet obstruction Cyst rupture If you have these problems, you will likely have surgery or another treatment to drain the cyst. When should I call my healthcare provider? If you have a pancreatic pseudocyst, know that it may cause complications. Many of these need medical care right away. See your healthcare provider right away for any severe or sudden symptoms. Theseinclude: Throwing up blood Fever Dizziness Yellowing of your skin (jaundice) Severe stomach pain [place] points about pancreatic pseudocysts Pancreatic pseudocysts are collections of leaked pancreatic fluids. They may form next to the pancreas during pancreatitis. Having gallstones and drinking a lot of alcohol are the 2 most common causes of pancreatitis. Most people with pseudocysts will have stomach pain, vomiting, and other symptoms of pancreatitis. Your healthcare provider can likely diagnose a pseudocyst with a CT or another imaging test. Many pseudocysts get better without treatment. If your pseudocyst is large, causes symptoms, or hasn?t gone away over time, your healthcare provider may drain it. Next steps Tips to help you get the most from a visit to your healthcare provider: Know the reason for your visit and what you want to happen. Before your visit, write down questions you want answered. Bring someone with you to help you ask questions and remember what your provider tells you. At the visit, write down the name of a new diagnosis, and any new medicines, treatments, or tests. Also write down any new instructions your provider gives you. Know why a new medicine or treatment is prescribed, and how it will help you. Also know what theside effects are and when they should be reported. Ask if your condition can be treated in other ways. Know why a test or procedure is recommended and what the results could mean. Know what to expect if you do not take the medicine or have the test or procedure. If you have a follow-up appointment, write down the date, time, and purpose for that visit. Know how you can contact your provider if you have questions, especially after office hours and on weekends and holidays. Last Reviewed Date: 2022 00:00:00 [id number] [employer]. All rights reserved. This information is not intended as a substitute for professional medical care. Always follow your healthcare professional's instructions. * Pt Handout (on AVS) - Jannet Mcintyre RN - 05/21/2024 9:19 AM EST [id number] Discharge Instructions for Chronic Pancreatitis You have been diagnosed with long-term (chronic) pancreatitis. This is caused by repeated cases of inflammation of your pancreas. It results in permanent scarring and damage to the pancreatic tissue.The pancreas is an organ that makes chemicals and hormones that help you digest food and use sugar for energy. Some causes of chronic pancreatitis are the continued use of alcohol and tobacco, genetic disorders, cystic fibrosis, autoimmune disorders, and structural problems in the pancreas. Here's what you can do at home to help with your condition. Home care Suggestions for home care include the following: Ask someone to drive you to appointments until you know how the illness has affected you. Tell your health care provider about any medicines you take. This includes [id number]-[id number] medicines and supplements. Take your medicines exactly as directed. Don?t skip doses. Ask your provider about dlgm-hew-sbsivcf pain medicines, if needed. If you are diabetic, learn to keep track of your blood sugar. Keep a record of your readings. Work with your provider to control blood sugar levels. Watch for symptoms that your pancreatitis is getting worse. These symptoms include belly (abdominal) pain, nausea and vomiting, diarrhea or oil in your stool, weight loss, and fever. Diet changes Suggestions for diet changes include the following: Eat a low-fat diet. Ask your health care provider for menus and other diet information. Take vitamins A, D, and E, and add calcium to your diet. Your provider can recommend which supplements and dose you need. This depends on your situation. Your provider may advise digestive enzymes to take with each meal and snack. Stop smoking. Smoking increases problems with chronic pancreatitis. Stop drinking, especially if your illness was caused by alcohol. o Ask your provider about alcohol abuse programs and support groups, such as Alcoholics Anonymous. o Ask your provider about prescription medicines that can help you stop drinking. Follow-up care Make a follow-up appointment, or as advised. Be honest in follow-up appointments about any alcohol and tobacco use. Your providers need complete health information so they can prescribe appropriate treatments. When to call your doctor Contact your health care provider or get medical care right away if you have: A fever of 100.4F (38C) or higher, or as advised by your provider. Severe pain in your upper belly to your back. Nausea and vomiting. Belly swelling and soreness. Loss of weight without dieting. Last Reviewed Date: 2024 00:00:00 [id number] [employer]. All rights reserved. This information is not intended as a substitute for professional medical care. Always follow your healthcare professional's instructions. * Pt Handout (on AVS) - Jannet Mcintyre RN - 05/21/2024 9:19 AM EST [id number] Pancreatitis The pancreas is an organ in the belly (abdomen). It secretes hormones and digestive juices (enzymes) into the stomach. These help with digestion and control blood sugar levels. Pancreatitis is an inflammation of the pancreas. Often, it happens when the duct that connects the pancreas and gallbladder is blocked by a gallstone. Heavy alcohol use is another major cause. Less common causes can include medicines, trauma, certain medical procedures, viruses, and toxins. Smoking is also an important risk factor. Sometimes the cause of pancreatitis can't be found. Genetic testing is sometimes done inthose cases, especially if there is a family history of pancreatic disease. Symptoms of pancreatitis include: Gradually increasing or sudden severe pain in the upper belly that may spread to the back. Nausea and vomiting. Severe indigestion. Racing heart. Fever. If the pancreatitis becomes a long-term problem, diarrhea, chronic pain, weight loss, and poor nutrition can occur. Pancreatitis may be diagnosed by history, exam, blood tests, and sometimes imaging studies. It may first be treated in the hospital. While in the hospital, you may get fluids and medicines. The underlying cause of the problem must also be treated to prevent further problems. If gallstones are the cause, you and your health care provider can discuss choices for treating them. This often results in gallbladder surgery. Sometimes another test must be done to clear the blocked drainage ducts of gallstones. If alcohol is the cause, talk with your provider about a program tohelp you stop drinking. Home care Don't drink alcohol. Rest in bed or sit up in a chair until you feel better. Take medicines as prescribed. If you were given an antibiotic for infection, take it until it's gone, even if you feel better. Let your provider know if you vomit up your medicine. To prevent dehydration, try sipping small amounts of clear liquids often. Your provider may advise clear liquids only for 1 or 2 days. This is to rest the pancreas. When you start eating again, start with small amounts. Have small, more frequent meals rather than larger meals. Low-fat meals are best. Fruits, vegetables, and whole grains are good choices. [place] from fried and greasy foods. A registered dietitian can help you make a meal plan that works best for you. Follow-up care Follow up with your health care provider as advised. When to get medical care Call your health care provider right away if: Your pain continues or gets worse. You have repeated vomiting. You feel dizzy or weak. You have a fever of 100.4 F (38 C) or higher, or as advised by your provider. You have severe muscle cramps. You have a yellowish coloring of your skin and eyes (jaundice). Call 911 Call 911 if: You're vomiting blood or have large amounts of blood in your stool. You have a seizure. You lose consciousness. Last Reviewed Date: 2024 00:00:00 [id number] [employer]. All rights reserved. This information is not intended as a substitute for professional medical care. Always follow your healthcare professional's instructions. * Pt Handout (on AVS) - Jannet Mcintyre RN - 05/21/2024 9:19 AM EST Images from the original note were not included. [id number] Low-Fiber Diet Eggs are high in protein and easy to digest. Eating a low-fiber diet means eating foods that don?t have much fiber. These foods are easy to digest. Most of the fiber that you eat passes undigested through your bowel. This is what forms stool. Low-fiber foods can help to slow down your bowel movements. When you eat a low-fiber diet, you have fewer stools. This lets your intestine rest. Your healthcare provider will tell you how long you need to be on this diet. It may only be for a short time. Low-fiber foods often don?t give you all the nutrients you need to stay healthy. Your healthcare provider may have you take certain vitamins while you are on this diet. Reasons to eat a low-fiber diet The goal of a low-fiber diet is to limit the size and number of your stools. It may be prescribed if you: Are going through chemotherapy or radiation treatments Have had intestinal surgery Have trouble digesting food Have a condition that affects your intestine, such as irritable bowel syndrome, Crohn?s disease,ulcerative colitis, or diverticulitis General guidelines for a low-fiber diet In general, a low-fiber diet means having fewer than 13 grams of fiber a day. Your healthcare provider may give you a list of things you can and can?t eat or drink. Read food labels. Choose foods anddrinks that have as close to zero grams of fiber as possible. Here are general guidelines to follow: Breads, pasta, cereal, rice, and other starches (6 to 11 servings daily) What to choose: white bread, biscuits, muffins, and white rolls; plain crackers; waffles; white pasta; white rice; cream of wheat; grits; white pancakes; corn flakes; cooked potatoes without skin;pretzels. Fiber content of these foods should be less than 0.5 () gram per serving. What to pass up: whole-wheat or whole-grain breads, crackers, and pasta; breads with seeds or nuts; wheat germ; yasmani crackers; cornbread; wild or brown rice; cereals with whole-grain, bran, and granola; cereals with seeds, nuts, coconut, or dried fruit; potatoes with skin Milk and dairy (2 servings daily) What to choose: milk and buttermilk; yogurt or ice cream without seeds or nuts; custard or pudding; sour cream; cheese and cottage cheese; cream sauces, soups, and casseroles What to pass up: ice cream and yogurt with seeds, nuts, or fruit chunks Fruit (2 to 4 servings daily) What to choose: ripe banana; ripe nectarine, peach, apricot, papaya, and plum; soft honeydew melon and cantaloupe; cooked or canned fruit without skin or seeds (not sweetened with sorbitol); applesauce; strained fruit juice (without pulp) What to pass up: raw or dried fruit; all berries; raisins; canned and raw pineapple; prunes and prune juice; fruit juice with pulp Vegetables (3 to 5 servings daily) What to choose: well-cooked or canned vegetables without seeds, such as spinach, eggplant, greenand wax beans, carrots, yellow squash, and pumpkin; lettuce on a sandwich What to pass up: all raw or steamed vegetables; vegetables with seeds, such as unstrained tomatosauce; green peas; jones beans; broccoli; corn; parsnips Meats and protein (4 to 6 ounces daily) What to choose: tender, well-cooked meat, including ground meat, poultry, and fish; eggs; tofu; creamy peanut butter What to pass up: processed meats such as hot dogs and sausages, tough, chewy meat with gristle; peas, including split, yellow, and black-eyed; beans, including navy, jones, black, garbanzo, soy, marion, and lentil; peanuts and crunchy peanut butter Fats, oils, sauces, and condiments (fewer than 8 teaspoons daily) What to choose: butter, margarine, oils, whipped cream, sour cream, mayonnaise, smooth dressingsand sauces; plain gravy; smooth condiments What to pass up: dressing with seeds or fruit chunks; pickles and relishes Other foods and drinks What to choose: water; plain gelatin; plain puddings; pretzels; plain cookies and cakes; honey, syrup; decaffeinated drinks, including tea and coffee What to pass up: popcorn; potato chips; spicy foods; fried, greasy foods; alcohol (ask your healthcare provider); marmalade, jam, and preserves; desserts that have seeds, nuts, coconut, dried fruit, whole grains, or bran; candy that has seeds or nuts; drinks sweetened with sorbitol or other sugar substitutes; caffeinated drinks, including tea, coffee, soda, and energy drinks Last Reviewed Date: 2022 00:00:00 [id number] [employer]. All rights reserved. This information is not intended as a substitute for professional medical care. Always follow your healthcare professional's instructions. * Care Plan - Kizzy Tobias RN - 05/21/2024 5:22 AM EST Clinical Goal(s): Pt without fall or injury this shift (05/20/24 8682) Possible barriers to meeting goal(s)/advancing plan of care: back pain, admitting dx Stability of the patient: Moderately stable - low risk of patient condition declining or worsening Summary regarding today's goal(s): Met: Pt without fall or injury this shift Recommendations: Continue plan of care * Ancillary Progress Note - Patsy Waters, Combination Machine Tool Setter - 05/20/2024 3:53 PM EST CARE MANAGEMENT - ADULT TRANSITION NOTE [facility] [place] [address] Name: Rosalina Teran Location: [facility] 5A-5109/W Date: 05/20/2024 Time: 3:53 PM Risk Stratification Risk Stratification Psycho Social / Medical Concerns Identified: Adjustment to illness/injury;Multiple Comorbidities (05/19/24 1120) Accessed Neighborly to connect patients to social care resources: No (05/19/24 1120) Readmission Risk Score: 6.94 (05/20/24 1201) AM-PAC Score With Stairs : 24 (05/20/24 0820) Caregiver Information Emergency Contacts None on File Other Contacts Name Relation Home Work Mobile jimi robertson Significant Other [phone] Transition of Care Checklist Narrative: Pt discussed at IDT rounds. Advancing patients diet. Not medically ready for discharge today. Pt declined CM needs. Anticipated Transportation at Discharge: Family Patient/Family Expectations: to get well and return home Transition Planning Additional Considerations: Care Management will continue to monitor and assist with discharge planning needs * Care Plan - Lucas Lares, LISETTE - 05/20/2024 5:27 AM EST Clinical Goal(s): Patient will have adequate pain control during shift (05/19/241999) Possible barriers to meeting goal(s)/advancing plan of care: admitting diagnosis Stability of the patient: Moderately stable - low risk of patient condition declining or worsening Summary regarding today's goal(s): Met: patient had adequate pain control during shift Recommendations: continue plan of care. * Care Plan - Sangita Becerra RN - 05/19/2024 5:35 PM EST Clinical Goal(s): Pt will have adequate pain this shift. (05/19/24 0700) Possible barriers to meeting goal(s)/advancing plan of care: admitting dx Stability of the patient: Moderately stable - low risk of patient condition declining or worsening Summary regarding today's goal(s): Not Met: Pt did not have adequate pain control this shift. Recommendations: monitor pain and administer meds per MAR * Ancillary Progress Note - Ni Kim RN - 05/19/2024 11:22 AM EST CARE MANAGEMENT - ADULT INITIAL SCREENING [address] [address] Name: Rosalina Teran Location: [facility] 5A-[id number]/W Date: 05/19/2024 Time: 11:26 AM Discussed patient with the interdisciplinary care team. This Equal Opportunity Specialist performed a chart review and met with patient at bedside to complete admission screen and assessed needs for transition planning. The progressive care manager role and services were explained and emotional support was provided. Chief Complaint: No chief complaint on file. Prior Living Arrangements What was your living situation prior to admission/observation?: With Significant Other (05/19/241119) Living Quarters: House (05/19/241119) Number of steps to enter living quarters:: 0 (05/19/241119) Do you have serious difficulty walking or climbing stairs? (5 years old or older): No (05/18/24 1518) History of falling: No (05/19/24 0817) Prior Level of Functioning Describe the patient's ability prior to admission/observation to perform ADLs: Performs independently (05/19/241119) Describe the patient's mobility status prior to admission: Patient ambulates independently (05/19/241119) Patient uses assistive device: No (05/19/241119) Caregiver Information Emergency Contacts None on File Other Contacts Name Relation Home Work Mobile jimi robertson Significant Other [phone] Risk Stratification/Psychosocial/Care Gaps Risk Stratification Psycho Social / Medical Concerns Identified: Adjustment to illness/injury;Multiple Comorbidities (05/19/241119) Accessed Neighborly to connect patients to social care resources: No (05/19/241119) Readmission Risk Score: 7.03 (05/19/24 0800) AM-PAC Score With Stairs : 24 (05/19/24 0817) Prior to Admission Services Services Prior to Admission CASTING AND PASTING SUPERVISOR Services (Services received within the last 30 days with exception, Psych within last two years): N/A (05/19/24 1120) CASTING AND PASTING SUPERVISOR Transportation (Services received within the last 30 days): Patient drives self;Family/Friends Personal Vehicle (05/19/24 1120) Outpatient Equal Opportunity Specialist: Patient Care Team: Bev Calles, LISETTE as Behavioral Health Clinician (Registered Nurse) Patient/Family Expectations: home Patient lives in a 2 story home with no DWAINE. Independent with ADL's, IADL's, and ambulation. No services/HH or DME at home. Patient drives. Discussed discharge planning. Patient declines needs/services/HH at discharge at this time. Patient has medical marijuana card. CM will follow. For further screening information, please refer to the Care Management flow document. * Pt Handout (on AVS) - Tamika Stoddard RN - 05/18/2024 7:12 PM EST Images from the original note were not included. [id number] Understanding Pancreatitis If your pancreas suddenly becomes irritated or inflamed, you have acute pancreatitis. Acute pancreatitis is often very painful. Emergency medical treatment is usually needed. Chronic pancreatitis is a condition where your pancreas remains inflamed. It can lead to pain and other complications. Symptoms of acute pancreatitis Symptoms include: Severe pain in your upper belly radiating to your back Nausea and vomiting Belly swelling and tenderness Fever Rapid pulse Shallow, fast breathing Treating acute pancreatitis If you have acute pancreatitis, you may be in the hospital for a few days. For part of this time, you likely won?t be allowed to eat or drink. This lets your pancreas rest and heal. If your pancreatitis is severe, you may get nutrition and fluids through a feeding tube inserted into your belly. Medicines are given to help ease pain. Causes of pancreatitis Gallstones are one of the most common causes of pancreatitis. These hard stones form in the gallbladder, an organ located near the pancreas. These two organs share a passage into the small intestine called the common bile duct. But fluid can't leave the pancreas if gallstones block this duct. The fluid backs up and causes pancreatitis. Alcohol is also a very common cause of pancreatitis. Certain medicines, injury, and infection can also cause pancreatitis. Problems with the structure of the pancreas may also be a cause. There are also genetic problems that can cause pancreatitis. If you have chronic pancreatitis If the pancreas stays inflamed for a long time, chronic pancreatitis may result. Common symptoms include diarrhea, weight loss, and belly pain. Possible complications of chronic pancreatitis include: Diabetes Not absorbing enough nutrients (malnutrition) Pancreatic cancer (rare) Chronic diarrhea Chronic belly (abdominal) pain Treatment for chronic pancreatitis includes: Medicines to help the pancreas work (enzymes) and to manage pain Dietary changes Stop smoking Treatment for gallstones Don't drink alcohol. The most important thing you can do is to stay away from alcohol and smoking to help manage this disease. Last Reviewed Date: 2022 00:00:00 0064-0966 [employer]. All rights reserved. This information is not intended as a substitute for professional medical care. Always follow your healthcare professional's instructions. * Care Plan - Sangita Becerra RN - 05/18/2024 6:52 PM EST Clinical Goal(s): Pt will have adequate pain control this shift. (05/18/24 3755) Possible barriers to meeting goal(s)/advancing plan of care: admitting dx Stability of the patient: Moderately stable - low risk of patient condition declining or worsening Summary regarding today's goal(s): Met: Pt stated that the pain medication was helping manage her pain. Recommendations: monitor for pain and administer pain meds as needed documented in this encounter Plan of Treatment Upcoming Encounters Date Type Department Care Team (Latest Contact Info) Description 05/24/2024 11:00 AM EST Office Visit Gastroenterology , [facility] [address] [address] Myranda Mckeon CRNP [address] [address] 05/27/2024 11:00 AM EST Office Visit [facility] [address] [place] [address] Williams Hauser III, MD [address] [place] [address] 08/18/2024 8:00 AM EDT Hospital Encounter ENDO [facility], Endoscopy Room [facility] [address] [place] [id number] Ellie Garcia MD [address] [place] [address] 08/18/2024 8:00 AM EDT - 08/18/2024 8:45 AM EDT Surgery [facility], Endoscopy Room [facility] [address] [place] [phone] Ellie Garcia MD [address] [place] [address] ENDOSCOPIC RETROGRADE CHOLANGIOPANCREATOGRAPHY (ERCP) DIAGNOSTIC 11/04/2024 8:40 AM EDT Office Visit [facility] [address] [place] [address] Williams Hauser III, MD [address] [place] [address] Scheduled Procedures Name Priority Associated Diagnoses Date/Ti [...] this encounter Medical Devices Implanted Type Area Machine Shop Helper Device Identifier Shelf Expiration Date Model / Serial / Lot Cartridge Esophyx Z+ - [id number] Implanted:Qty: 1 on 04/28/2019 by Ellie Garcia MD at OR [facility] [employer] 11/03/2020 [id number] / / [id number] Description:fasteners 10@11, 10@1, 4@5, 4@7 placed at GE junction (code 0278) Stent Panc Sgl Pigtail [id number] - [id number] Implanted:Qty: 1 on 05/10/2024 by Ellie Garcia MD at ENDOSCOPY [facility] N/A: Stomach COOK : IMELDA MAYO 09/29/2025 [id number] / / [id number] documented as of this encounter Procedures Procedure Name Priority Date/Time Associated Diagnosis Comments HEPATIC FUNCTION PANEL Routine 5:40 AM EST BASIC METABOLIC PANEL Routine 05/20/2024 5:40 AM EST CBC Routine 05/20/2024 5:40 AM EST PROCALCITONIN Add-on 05/19/2024 5:37 AM EST CRP (INFLAMMATORY MARKER) Routine 05/19/2024 5:37 AM EST COMPREHENSIVE METABOLIC PANEL Routine 05/19/2024 5:37 AM EST CBC Routine 05/19/2024 5:37 AM EST COMPREHENSIVE METABOLIC PANEL STAT 05/18/2024 3:38 PM EST LIPASE Routine 05/18/2024 3:38 PM EST CBC STAT 05/18/2024 3:38 PM EST documented in this encounter Results * (ABNORMAL) HEPATIC FUNCTION PANEL (05/20/2024 5:40 AM EST) Albumin 3.5(L) 3.8 - 5.0 g/dL 05/20/2024 6:29 AM EST LAB[facility]ATORY [facility] AST 17 10 - 35 U/L 05/20/2024 6:29 AM EST [facility] Alkaline Phosphatase 103 35 - 130 U/L 05/20/2024 6:29 AM EST [facility] ALT 23 10 - 35 U/L 05/20/2024 6:29 AM EST [facility] Bilirubin, Total 0.3 <=1.2 mg/dL 05/20/2024 6:29 AM EST [facility] Bilirubin, Direct 0.1 0.0 - 0.3 mg/dL 05/20/2024 6:29 AM EST [facility] Protein 6.1 6.0 - 8.3 g/dL 05/20/2024 6:29 AM EST [facility] Blood Venous blood specimen / Unknown Venipuncture / Unknown 05/20/2024 5:40 AM EST 05/20/2024 6:05 AM EST us Keshav Tse MD LAB BLOOD ORDERABLES Final Re sult LABORATORY [facility] [address] [place] [address] * (ABNORMAL) BASIC METABOLIC PANEL (05/20/2024 5:40 AM EST) BUN 5(L) 6 - 20 mg/dL 05/20/2024 6:29 AM EST [facility]ORY [facility] CREATININE 0.8 0.5 - 1.0 mg/dL 05/20/2024 6:29 AM EST LABORATORY GL EGFR >90 >=60 mL/min 05/20/2024 6:29 AM EST LABORATORY GL Comment:eGFR is calculated b ased on the CKD-EPI 2020 equation. SODIUM 142 135 - 146 mmol/L 05/20/2024 6:29 AM EST LAB[facility]ORY [facility] POTASSIUM 4.4 3.5 - 5.1 mmol/L 05/20/2024 6:29 AM EST [facility] CHLORIDE 104 98 - 107 mmol/L 05/20/2024 6:29 AM EST [facility] CO2 30 22 - 32 mmol/L 05/20/2024 6:29 AM EST LABORATORY GL ANION GAP 8 7 - 15 mmol/L 05/20/2024 6:29 AM EST LABORATORY GL GLUCOSE 92 70 - 120 mg/dL 05/20/2024 6:29 AM EST [facility] CALCIUM 9.1 8.4 - 10.2 mg/dL 05/20/2024 6:29 AM EST LABORATORY GL Blood Venous blood specimen / Unknown Venipuncture / Unknown 05/20/2024 5:40 AM EST 05/20/2024 6:05 AM EST us Luma Figueroa PA-C LAB BLOOD ORDERABLES Fi nal Result LABORATORY [address] [address] * CBC (05/20/2024 5:40 AM EST) WBC 8.67 4.00 - 10.80 K/uL 05/20/2024 6:12 AM EST LABORATORY GL RBC 3.90 3.85 - 5.15 M/uL 05/20/2024 6:12 AM EST LABORATORY GL HGB 12.1 12.0 - 15.3 g/dL 05/20/2024 6:12 AM EST [facility] HCT 37.5 36.0 - 45.2 % 05/20/2024 6:12 AM EST LABORATORY GL MCV 96.2 81.5 - 97.5 fL 05/20/2024 6:12 AM EST [facility] MCH 31.0 27.0 - 34.0 pg 05/20/2024 6:12 AM EST LABORATORY [facility] MCHC 32.3 32.0 - 36.0 g/dL 05/20/2024 6:12 AM EST LABORATORY [facility] RDW 12.2 11.5 - 15.5 % 05/20/2024 6:12 AM EST LABORATORY [facility] PLT 339 140 - 400 K/uL 05/20/2024 6:12 AM EST LABORATORY [facility] MPV 7.9 6.6 - 11.1 fL 05/20/2024 6:12 AM EST LABORATORY [facility] nRBCs 0 <=0 /100 WBCs 05/20/2024 6:12 AM EST LABORATORY [facility] Blood Venous blood specimen / Unknown Venipuncture / Unknown 05/20/2024 5:40 AM EST 05/20/2024 6:05 AM EST Luma Figueroa PA-C LAB BLOOD ORDERABLES Fi nal Result Performing Organization Address [facility]/ZIP Co de Phone Number LABORATORY [address] [address] * PROCALCITONIN (05/19/2024 5:37 AM EST) Procalcitonin <0.06 <0.10 ng/mL 05/19/2024 9:35 AM EST LABORATORY [facility] Blood Venous blood specimen / Unknown Venipuncture / Unknown 05/19/2024 5:37 AM EST 05/19/2024 5:41 AM EST Narrative LABORATORY [facility] - 05/19/2024 9:35 AM EST Less than 0.5 ng/mL: Low risk for progression to sepsis. Review patients condition for localized infections. 0.5 to 2.0 ng/mL: Intermediate risk for progresion to sepsis. Review underlying conditions. Recommend repeat PCT after 6 hours has elapsed. Greater than 2.0 ng/mL: high risk for progression to sepsis unless other causes are known. Keshav Tse MD LAB BLOOD ORDERABLES Final Re sult LABORATORY [address] [address] * (ABNORMAL) CRP (INFLAMMATORY MARKER) (05/19/2024 5:37 AM EST) [facility] CRP (Inflammatory Marker) 43(H) <=5 mg/L 05/19/2024 6:03 AM EST LABORATORY [facility] Blood Venous blood specimen / Unknown Venipuncture / Unknown 05/19/2024 5:37 AM EST 05/19/2024 5:41 AM EST Ade Lopez PA-C LAB BLOOD ORDERABLES Fin al Result LABORATORY [address] [address] * (ABNORMAL) CBC (05/19/2024 5:37 AM EST) [facility] WBC 10.06 4.00 - 10.80 K/uL 05/19/2024 5:45 AM EST LABORATORY [facility] RBC 3.66 3.85 - 5.15 M/uL 05/19/2024 5:45 AM EST LABORATORY [facility] HGB 11.5(L) 12.0 - 15.3 g/dL 05/19/2024 5:45 AM EST LABORATORY [facility] HCT 35.1(L) 36.0 - 45.2 % 05/19/2024 5:45 AM EST LABORATORY [facility] MCV 95.9 81.5 - 97.5 fL 05/19/2024 5:45 AM EST LABORATORY [facility] MCH 31.4 27.0 - 34.0 pg 05/19/2024 5:45 AM EST LABORATORY [facility] MCHC 32.8 32.0 - 36.0 g/dL 05/19/2024 5:45 AM EST LABORATORY [facility] RDW 12.5 11.5 - 15.5 % 05/19/2024 5:45 AM EST LABORATORY [facility] PLT 272 140 - 400 K/uL 05/19/2024 5:45 AM EST LABORATORY [facility] MPV 7.7 6.6 - 11.1 fL 05/19/2024 5:45 AM EST LAB[facility]ORY [facility] nRBCs 0 <=0 /100 WBCs 05/19/2024 5:45 AM EST LAB[facility]ATORY [facility] Blood Venous blood specimen / Unknown Venipuncture / Unknown 05/19/2024 5:37 AM EST 05/19/2024 5:41 AM EST us Nadja Levin FAUSTO LAB BLOOD ORDERABLES Final Re sult LABORATORY [facility] [address] [place] [address] * (ABNORMAL) COMPREHENSIVE METABOLIC PANEL (05/19/2024 5:37 AM EST) BUN 5(L) 6 - 20 mg/dL 05/19/2024 6:03 AM EST LABORATORY GL CREATININE 0.8 0.5 - 1.0 mg/dL 05/19/2024 6:03 AM EST LABORATORY GL EGFR >90 >=60 mL/min 05/19/2024 6:03 AM EST [facility] Comment:eGFR is calculated b ased on the CKD-EPI 2020 equation. SODIUM 142 135 - 146 mmol/L 05/19/2024 6:03 AM EST [facility] POTASSIUM 4.4 3.5 - 5.1 mmol/L 05/19/2024 6:03 AM EST [facility] CHLORIDE 105 98 - 107 mmol/L 05/19/2024 6:03 AM EST [facility] CO2 28 22 - 32 mmol/L 05/19/2024 6:03 AM EST [facility] ANION GAP 9 7 - 15 mmol/L 05/19/2024 6:03 AM EST [facility] GLUCOSE 105 70 - 120 mg/dL 05/19/2024 6:03 AM EST [facility] Albumin 3.3(L) 3.8 - 5.0 g/dL 05/19/2024 6:03 AM EST [facility] AST 15 10 - 35 U/L 05/19/2024 6:03 AM EST [facility] Alkaline Phosphatase 100 35 - 130 U/L 05/19/2024 6:03 AM EST [facility] Bilirubin, Total 0.3 <=1.2 mg/dL 05/19/2024 6:03 AM EST [facility] CALCIUM 8.7 8.4 - 10.2 mg/dL 05/19/2024 6:03 AM EST [facility] Protein 6.0 6.0 - 8.3 g/dL 05/19/2024 6:03 AM EST [facility] ALT 21 10 - 35 U/L 05/19/2024 6:03 AM EST LAB[facility]ATORY [facility] Blood Venous blood specimen / Unknown Venipuncture / Unknown 05/19/2024 5:37 AM EST 05/19/2024 5:41 AM EST Nadja LAMBERT LAB BLOOD ORDERABLES Final Re sult LABORATORY [address] [address] * (ABNORMAL) LIPASE (05/18/2024 3:38 PM EST) Lipase 110(H) 13 - 60 U/L 05/18/2024 4:20 PM EST LABORATORY GL Blood Venous blood specimen / Unknown Venipuncture / Unknown 05/18/2024 3:38 PM EST 05/18/2024 3:58 PM EST Nadjaar LAMBERT LAB BLOOD ORDERABLES Final Re sult LABORATORY [address] [address] * CBC (05/18/2024 3:38 PM EST) WBC 10.68 4.00 - 10.80 K/uL 05/18/2024 4:02 PM EST LABORATORY GL RBC 3.76 3.85 - 5.15 M/uL 05/18/2024 4:02 PM EST [facility]ORY [facility] HGB 12.0 12.0 - 15.3 g/dL 05/18/2024 4:02 PM EST LABORATORY GL HCT 36.1 36.0 - 45.2 % 05/18/2024 4:02 PM EST LABORATORY GL MCV 96.0 81.5 - 97.5 fL 05/18/2024 4:02 PM EST LABORATORY GL MCH 31.9 27.0 - 34.0 pg 05/18/2024 4:02 PM EST LABORATORY GL MCHC 33.2 32.0 - 36.0 g/dL 05/18/2024 4:02 PM EST LABORATORY GL RDW 12.9 11.5 - 15.5 % 05/18/2024 4:02 PM EST LABORATORY GL PLT 311 140 - 400 K/uL 05/18/2024 4:02 PM EST LABORATORY GL MPV 7.8 6.6 - 11.1 fL 05/18/2024 4:02 PM EST LABORATORY GL nRBCs 0 <=0 /100 WBCs 05/18/2024 4:02 PM EST LABORATORY GL Blood Venous blood specimen / Unknown Venipuncture / Unknown 05/18/2024 3:38 PM EST 05/18/2024 3:58 PM EST us Nadja LAMBERT LAB BLOOD ORDERABLES Final Re sult LABORATORY [facility] [address] [place] [address] * (ABNORMAL) COMPREHENSIVE METABOLIC PANEL (05/18/2024 3:38 PM EST) BUN 7 6 - 20 mg/dL 05/18/2024 4:20 PM EST LABORATORY GL CREATININE 0.7 0.5 - 1.0 mg/dL 05/18/2024 4:20 PM EST LABORATORY GL EGFR >90 >=60 mL/min 05/18/2024 4:20 PM EST LABORATORY GL Comment:eGFR is calculated b ased on the CKD-EPI 2020 equation. SODIUM 139 135 - 146 mmol/L 05/18/2024 4:20 PM EST LAB[facility]ATORY [facility] POTASSIUM 4.0 3.5 - 5.1 mmol/L 05/18/2024 4:20 PM EST LAB[facility]ATORY [facility] CHLORIDE 102 98 - 107 mmol/L 05/18/2024 4:20 PM EST LAB[facility]ORY [facility] CO2 30 22 - 32 mmol/L 05/18/2024 4:20 PM EST LAB[facility]ORY [facility] ANION GAP 7 7 - 15 mmol/L 05/18/2024 4:20 PM EST LAB[facility]ATORY [facility] GLUCOSE 91 70 - 120 mg/dL 05/18/2024 4:20 PM EST LAB[facility]ORY [facility] Albumin 3.6(L) 3.8 - 5.0 g/dL 05/18/2024 4:20 PM EST [facility] AST 16 10 - 35 U/L 05/18/2024 4:20 PM EST LAB[facility] Alkaline Phosphatase 102 35 - 130 U/L 05/18/2024 4:20 PM EST [facility] Bilirubin, Total 0.3 <=1.2 mg/dL 05/18/2024 4:20 PM EST [facility] CALCIUM 8.9 8.4 - 10.2 mg/dL 05/18/2024 4:20 PM EST [facility] Protein 6.1 6.0 - 8.3 g/dL 05/18/2024 4:20 PM EST [facility] ALT 21 10 - 35 U/L 05/18/2024 4:20 PM EST [facility] Blood Venous blood specimen / Unknown Venipuncture / Unknown 05/18/2024 3:38 PM EST 05/18/2024 3:58 PM EST us Nadja LAMBERT LAB BLOOD ORDERABLES Final Re sult LABORATORY [facility] [address] [place] [address] documented in this encounter Visit Diagnoses Diagnosis Pancreatitis- Primary Acute pancreatitis Pancreatitis Acute pancreatitis Chest pain Chest pain, unspecified Pancreatic divisum Congenital anomalies of pancreas Pancreatic divisum Congenital anomalies of pancreas Irritable bowel syndrome with constipation Irritable bowel syndrome Major depressive disorder, recurrent, mild (HCC) Major depressive disorder, recurrent episode, mild DWAIN (generalized anxiety disorder) Generalized anxiety disorder Medical marijuana use Encounter for long-term (current) use of other medications Chronic recurrent pancreatitis (HCC) Chronic pancreatitis documented in this encounter Administered Medications Inactive Administered Medications - up to 3 most recent administrations Medication Order MAR Action Action Date Dose Rate Site Acetaminophen (Tylenol) tab 650 mg 650 mg, Oral, Q6H PRN Pain, Mild, Fever >38C(100.5F), Pain, Moderate, Pain, Severe, Starting on Thu05/18/24 at 2316, Until Heidy 05/19/24 at 1701, Maximum of 4 grams (4000 mg) per day. Given 05/18/2024 11:27 PM EST 650 mg Acetaminophen (Tylenol) tab 975 mg 975 mg, Oral, QID(AM/NOON/PM/HS), First dose (after last modification) on Thu05/19/24 at 1800, Until Discontinued, Maximum of 4 grams (4000 mg) per day. Given 05/21/2024 11:19 AM EST 975 mg Given 05/21/2024 6:19 AM EST 975 mg Given 05/20/2024 9:59 PM EST 975 mg busPIRone (Buspar) tab 15 mg 15 mg, Oral, BID (.AM/PM), First dose on Thu05/18/24 at 2100, Until Discontinued Given 05/21/2024 8:48 AM EST 15 mg Given 05/20/2024 8:25 PM EST 15 mg Given 05/20/2024 8:19 AM EST 15 mg Docusate Sodium (Colace) cap 100 mg 100 mg, Oral, BID (.AM/PM), First dose on Thu05/20/24 at 0830, Until Discontinued, For oral administration ONLY, if route of administration is other than oral and alternative product must be ordered. Given 05/20/2024 8:25 PM EST 100 mg Given 05/20/2024 8:19 AM EST 100 mg DULoxetine (Cymbalta) DR cap 60 mg 60 mg, Oral, Daily(AM), First dose on Thu05/19/24 at 0900, Until Discontinued Given 05/21/2024 8:48 AM EST 60 mg Given 05/20/2024 8:19 AM EST 60 mg Given 05/19/2024 8:20 AM EST 60 mg hEParin inj 5,000 Units 5,000 Units, Subcutaneous, Q8H, First dose on Thu05/20/24 at 2200, Until Discontinued Given 05/21/2024 6:19 AM EST 5,000 Units Abdomen Right Lower Given 05/20/2024 9:59 PM EST 5,000 Units A bdomen Right Lower HYDROmorphone (Dilaudid) inj 0.2 mg 0.2 mg, IV Push, Q4H PRN Pain, Severe, Starting on Thu05/18/24 at 1534, Until Thu05/18/24 at 2315 Given 05/18/2024 8:47 PM EST 0.2 mg Given 05/18/2024 4:29 PM EST 0.2 mg HYDROmorphone (Dilaudid) inj 0.5 mg 0.5 mg, IV Push, Q4H PRN Pain, Severe, Starting on Thu05/18/24 at 2314, Until 05/21/24 at 1705 Given 05/20/2024 11:52 AM EST 0.5 mg Given 05/20/2024 7:13 AM EST 0.5 mg Given 05/20/2024 3:18 AM EST 0.5 mg HYDROmorphone (Dilaudid) inj 0.5 mg 0.5 mg, IV Push, Q3H PRN Pain, Breakthrough, Starting on Thu05/19/24 at 1701, Until 05/21/24 at 1705 Given 05/19/2024 6:32 PM EST 0.5 mg Isolyte-S pH 7.4 infusion Intravenous, at 200 mL/hr, Plasma-LYTE 148, isolyte-S, and isolyte-S pH 7.4 are considered equivalent - including for MAR barcode scanning., CONTINUOUS, Starting on Thu05/18/24 at 1645, Until Thu05/19/24 at 1224 New Bag 05/19/2024 11:58 AM EST 200 mL/hr New Bag 05/19/2024 6:44 AM EST 200 mL/hr New Bag 05/19/2024 1:36 AM EST 200 mL/hr Isolyte-S pH 7.4 infusion Intravenous, at 100 mL/hr, Plasma-LYTE 148, isolyte-S, and isolyte-S pH 7.4 are considered equivalent - including for MAR barcode scanning., CONTINUOUS, Starting on Thu05/19/24 at 1300, Until Thu05/20/24 at 1441 New Bag 05/20/2024 8:33 AM EST 100 mL/hr Rate Verify 05/20/2024 5:27 AM EST 100 mL/hr Restarted 05/20/2024 12:42 AM EST 100 mL/hr melatonin tab 3 mg 3 mg, Oral, HS PRN Sleep, Starting on Thu05/18/24 at 1933, Until 05/21/24 at 1705 methylnaltrexone (Relistor) 12 MG/0.6ML inj 12 mg 12 mg, Subcutaneous, ONCE, On Heidy 05/19/24 at 1645, For 1 dose, Restricted to patients who have taken opioids for at least 4 weeks/have tried other laxatives (including Movantik) and are refractory to previous therapy/require an opioid antagonist and are NPO. Given 05/19/2024 5:14 PM EST 12 mg Abdomen Left Lower Metoclopramide (Reglan) inj 10 mg 10 mg, IV Push, BID (.AM/PM), First dose on Thu05/19/24 at 2100, Until DiscontinuedIndications:Pancre atic divisum Given 05/20/2024 8:19 AM EST 10 mg Given 05/19/2024 10:23 PM EST 10 mg Metoclopramide (Reglan) inj 5 mg 5 mg, IV Push, BID (.AM/PM), First dose (after last modification) on Thu05/20/24 at 2100, Last dose on Thu05/21/24 at 2100, For 3 dosesIndications:Pancreatic divisum Given 05/21/2024 8:48 AM EST 5 mg Given 05/20/2024 8:46 PM EST 5 mg ondansetron (Zofran) inj 4 mg 4 mg, IV Push, Q6H PRN Nausea, Vomiting, Starting on Thu05/18/24 at 1539, Until 05/21/24 at 1705 Given 05/19/2024 3:39 AM EST 4 mg oxyCODONE (Oxy IR) tab 5 mg 5 mg, Oral, Q4H PRN Pain, Moderate, Starting on Thu05/19/24 at 1701, Until 05/21/24 at 1705 Given 05/21/2024 3: 52 AM EST 5 mg Given 05/20/2024 8:25 PM EST 5 mg Given 05/20/2024 3:57 PM EST 5 mg pantoprazole (Protonix) tab 40 mg 40 mg, Oral, Daily(AM), First dose on Thu05/19/24 at 0900, Until Discontinued, This med should NOT be Crushed or Chewed Given 05/21/2024 8:48 AM EST 40 mg Given 05/20/2024 8:19 AM EST 40 mg Given 05/19/2024 8:20 AM EST 40 mg Polyethylene Glycol 3350 (Miralax) oral powder 17 g 17 g (1 Packet), Oral, BID (0900,2100), First dose on Thu05/20/24 at 0830, Until Discontinued, Mix in 8 oz of water, juice, soda, coffee, or tea. Given 05/20/2024 8:26 PM EST 17 g Given 05/20/2024 8:19 AM EST 17 g sodium chloride 0.9 % flush/inj 3 mL 3 mL, IV Push, PRN Other, Line Patency, Starting on Thu05/18/24 at 1532, Until 05/21/24 at 1705, Do not flush if lock, PICC, or central line not in place, IV infusing or unable to flush traZODone (Desyrel) tab 100 mg 100 mg, Oral, QHS, First dose on Thu05/18/24 at 2200, Until Discontinued Given 05/20/2024 9:59 PM EST 100 mg Given 05/19/2024 10:16 PM EST 100 mg Given 05/18/2024 9:09 PM EST 100 mg documented in this encounter Active and Recently Administered Medications Times are shown in EST. Scheduled Medication Order 05/19/2024 05/20/2024 05/21/2024 Acetaminophen (Tylenol) tab 975 mg 975 mg, Oral, QID(AM/NOON/PM/HS), First dose (after last modification) on Thu05/19/24 at 1800, Until Discontinued, Maximum of 4 grams (4000 mg) per day. 1712 (Given - Provider: Sangita Becerra RN)2216 (Given - Provider: Hailey Samaniego LPN) 0609 (Given - Provider: Lucas Lares RN)1146 (Given - Provider: Jannet Mcintyre RN)1840 (Given - Provider: Hailey Samaniego LPN)2159 (Given - Provider: Hailey Samaniego LPN) 0619 (Given - Provider: Kizzy Tobias RN)1119 (Given - Provider: Bev Miranda RN) busPIRone (Buspar) tab 15 mg 15 mg, Oral, BID (.AM/PM), First dose on Thu05/18/24 at 2100, Until Discontinued 0820 (Given - Provider: Sangita Becerra RN)2215 (Given - Provider: Hailey Samaniego LPN) 0819 (Given - Provider: Jannet Mcintyre RN)2024 (Given - Provider: Hailey Samaniego LPN) 0848 (Given - Provider: Bev Miranda RN) Docusate Sodium (Colace) cap 100 mg 100 mg, Oral, BID (.AM/PM), First dose on Thu05/20/24 at 0830, Until Discontinued, For oral administration ONLY, if route of administration is other than oral and alternative product must be ordered. 0819 (Given - Provider: Jannet Mcintyre RN)2024 (Given - Provider: Hailey Samaniego LPN) 0848 (Not Given - Provider: Bev Miranda RN - Reason: Refused-Notify Provider) DULoxetine (Cymbalta) DR cap 60 mg 60 mg, Oral, Daily(AM), First dose on Thu05/19/24 at 0900, Until Discontinued 08 (Given - Provider: Sangita Becerra RN) 08 (Given - Provider: Jannet Mcintyre RN) 0848 (Given - Provider: Bev Miranda RN) hEParin inj 5,000 Units 5,000 Units, Subcutaneous, Q8H, First dose on Thu05/20/24 at 2200, Until Discontinued 2158 (Given - Provider: Hailey Samaniego LPN) 0619 (Given - Provider: Kizzy Tobias RN) methylnaltrexone (Relistor) 12 MG/0.6ML inj 12 mg (COMPLETED) 12 mg, Subcutaneous, ONCE, On Thu05/19/24 at 1645, For 1 dose, Restricted to patients who have taken opioids for at least 4 weeks/have tried other laxatives (including Movantik) and are refractory to previous therapy/require an opioid antagonist and are NPO. 1714 (Given - Provider: Sangita Becerra RN) Metoclopramide (Reglan) inj 10 mg (CANCELED) 10 mg, IV Push, BID (.AM/PM), First dose on Thu05/19/24 at 2100, Until Discontinued 2222 (Given - Provider: Elizabeth Garcia RN) 0819 (Given - Provider: Jannet Mcintyre RN) Metoclopramide (Reglan) inj 5 mg 5 mg, IV Push, BID (.AM/PM), First dose (after last modification) on Thu05/20/24 at 2100, Last dose on Thu05/21/24 at 2100, For 3 doses 2045 (Given - Provider: Kizzy Tobias RN) 0848 (Given - Provider: Bev Miranda RN) pantoprazole (Protonix) tab 40 mg 40 mg, Oral, Daily(AM), First dose on Thu05/19/24 at 0900, Until Discontinued, This med should NOT be Crushed or Chewed 819 (Given - Provider: Sangita Becerra RN) 0819 (Given - Provider: Jannet Mcintyre RN) 0848 (Given - Provider: Bev Miranda RN) Polyethylene Glycol 3350 (Miralax) oral powder 17 g 17 g (1 Packet), Oral, BID (0900,2099), First dose on Thu05/20/24 at 0830, Until Discontinued, Mix in 8 oz of water, juice, soda, coffee, or tea. 08 (Given - Provider: Jannet Mcintyre RN)2025 (Given - Provider: Hailey Samaniego LPN) 0849 (Not Given - Provider: Bev Miranda RN - Reason: Refused-Notify Provider) traZODone (Desyrel) tab 100 mg 100 mg, Oral, QHS, First dose on Thu05/18/24 at 2200, Until Discontinued 2215 (Given - Provider: Hailey Samaniego LPN) 2158 (Given - Provider: Hailey Samaniego LPN) Continuous Medication Order 05/19/2024 05/20/2024 05/21/2024 Isolyte-S pH 7.4 infusion (CANCELED) Intravenous, at 200 mL/hr, Plasma-LYTE 148, isolyte-S, and isolyte-S pH 7.4 are considered equivalent - including for MAR archie scanning., CONTINUOUS, Starting on Thu05/18/24 at 1645, Until Heidy 05/19/24 at 1224 0136 (New Bag - Provider: Lucas Lares RN)0644 (New Bag - Provider: Lucas Lares RN)1158 (New Bag - Provider: Sangita Becerra, LISETTE)1228 (Stopped - Provider: Sangita Becerra RN) Isolyte-S pH 7.4 infusion (CANCELED) Intravenous, at 100 mL/hr, Plasma-LYTE 148, isolyte-S, and isolyte-S pH 7.4 are considered equivalent - including for MAR barcode scanning., CONTINUOUS, Starting on Heidy 05/19/24 at 1300, Until Thu05/20/24 at 1441 1230 (New Order/Same Bag - Provider: Sangita Becerra RN)1825 (Rate Verify - Provider: Sangita Becerra RN)1932 (Paused - Provider: Lucas Lares RN)1999 (Restarted - Provider: Lucas Lares RN)2202 (Stopped - Provider: Lucas Lares RN)2219 (New Bag - Provider: Hailey Samaniego LPN) 0038 (Paused - Provider: Lucas Lares RN)0042 (Restarted - Provider: Lucas Lares RN)0527 (Rate Verify - Provider: Lucas Lares RN)0833 (New Bag - Provider: Jannet Mcintyre RN)1441 (Stopped - Provider: Hailey Samaniego LPN) PRN Medication Order 05/19/2024 05/20/2024 05/21/2024 cyclobenzaprine (Flexeril) 5 mg tab 5 mg, Oral, BID PRN Muscle spasms, Starting on Thu05/18/24 at 1543, Until 05/21/24 at 1705 HYDROmorphone (Dilaudid) inj 0.5 mg 0.5 mg, IV Push, Q4H PRN Pain, Severe, Starting on Thu05/18/24 at 2314, Until 05/21/24 at 1705 0332 (Given - Provider: Lucas Lares RN)0818 (Given - Provider: Sangita Becerra RN)1225 (Given - Provider: Sangita Becerra RN)1549 (Given - Provider: Sangita Becerra RN)2351 (Given - Provider: Lucas Lares RN) 0318 (Given - Provider: Lucas Lares RN)0713 (Given - Provider: Jannet Mcintyre, LISETTE)1152 (Given - Provider: Jannet Mcintyre RN) HYDROmorphone (Dilaudid) inj 0.5 mg 0.5 mg, IV Push, Q3H PRN Pain, Breakthrough, Starting on Heidy 05/19/24 at 1701, Until 05/21/24 at 1705 1832 (Given - Provider: Sangita Becerra RN) melatonin tab 3 mg 3 mg, Oral, HS PRN Sleep, Starting on 05/18/24 at 1933, Until 05/21/24 at 1705 ondansetron (Zofran) inj 4 mg 4 mg, IV Push, Q6H PRN Nausea, Vomiting, Starting on Thu05/18/24 at 1539, Until 05/21/24 at 1705 0339 (Given - Provider: Lucas Lares RN) oxyCODONE (Oxy IR) tab 5 mg 5 mg, Oral, Q4H PRN Pain, Moderate, Starting on Heidy 05/19/24 at 1701, Until 05/21/24 at 1705 1712 (Given - Provider: Sangita Becerra RN)2216 (Given - Provider: Hailey Samaniego LPN) 1557 (Given - Provider: Hailey Samaniego LPN)2025 (Given - Provider: Hailey Samaniego LPN) 0352 (Given - Provider: Kizzy Tobias RN) sodium chloride 0.9 % flush/inj 3 mL 3 mL, IV Push, PRN Other, Line Patency, Starting on 05/18/24 at 1532, Until 05/21/24 at 1705, Do not flush if lock, PICC, or central line not in place, IV infusing or unable to flush documented in this encounter Advance Directives * Full Code (Latest Code Status on File) Date Activated Date Inactivated Comments 05/18/2024 3:33 PM 05/21/2024 5:10 PM This order r eflects the patients wishes and were consensually agreed upon. Question Answer Comments Discussion of Advance Directives occurred with: Patient Care Teams Industrial Sweeper Cleaner Relationship Specialty Start Date End Date Williams Hauser III, MD [address] [place] [address] PCP - General Family Medicine 10/27/22 documented as of this encounter
--- OUTSIDE RECORDS SUMMARY | 2024-06-04 23:23 | External Medical Summary | Summary of Care ---
Author Name Unknown Organization [facility] Address [address] [address] Phone [phone] Care Team Providers Care Coal Pipeline Operator Name Role Phone Murtaza BENTON MD, Williams Payton Primary Care Provider [phone] Encounter Details Date Type Department Care Team (Late st Contact Info) Description 05/30/2024 Orders Only Gastroenterology, [facility] [address] [place] [phone] LindaMyranda palacio CRNP [address] [place] [id number] Idiopathic chronic pancreatitis (HCC)* Allergies Active Allergy Reactions Criticality Noted Date Comments Clindamycin Other (Please comment) 12/21/2014 Burned taste Muscle pain Doxycycline Low 08/22/2020 Other reaction(s): Metallic Taste Penicillins Unknown 10/07/2007 As a child Other reaction(s): UNKNOWN, CHILD ALLERGY documented as of this encounter (statuses as of 05/30/2024) Medications NATURAL SUPPLEMENT Take by mouth daily. Medical marijuana Active Loratadine 10 MG Oral Tablet Take 1 Tablet by mouth in the morning. Active Fluticasone Propionate 50 MCG/ACT Nasal Suspension Administer 1 Amidon into nostril in the morning. Active Ondansetron HCl 4 MG Oral Tablet (Zofran)Indication s:Nausea and vomiting, intractability of vomiting not specified, unspecified vomiting type Take 1 Tablet by mouth every 6 hours as needed for Nausea. 30 Tablet 12/16/20 21 Active DULoxetine HCl 60 MG Oral [...] bedtime. 30 Tablet 2 05/24/19 25 Active Hospital, Clinic, or Other Facility Administered Medication Ordered Dose Route Frequency Start Date End Date Status sodium chloride 0.9 % flush/inj 10 mL 10 mL IV PUSH ONCE 05/30/2024 05/30/2024 Active documented as of this encounter (statuses as of 05/30/2024) Active Problems Problem Noted Date Diagnosed Date [...] as of this encounter (statuses as of 05/30/2024) Resolved Problems Problem Noted Date Diagnosed Date [...] as of this encounter (statuses as of 05/30/2024) Immunizations Name Administration Dates Next Due HPV [...] Department Care Team (Latest Contact Info) Description 08/18/2024 8:00 AM EDT Hospital Encounter ENDO OSS[facility], Endoscopy Room [facility] [address] [place] [phone] Ellie Garcia MD [address] [place] [address] 08/18/2024 8:00 AM EDT - 08/18/2024 8:45 AM EDT Surgery ENDO [facility], Endoscopy Room [facility] [address] [place] [phone] Ellie Garcia MD [address] [place] [address] ENDOSCOPIC RETROGRADE CHOLANGIOPANCREATOGRAPHY (ERCP) DIAGNOSTIC 08/30/2024 11:00 AM EDT Office Visit Gastroenterology , [facility] [address] [place] [address] Myranda Mckeon CRNP [address] [place] [address] 11/04/2024 8:40 AM EDT Office Visit [facility] [address] [facility] [place] [address] Williams Hauser III, MD [address] [place] [address] Scheduled Orders Name Type Priority Associated Diagnoses Orde r Schedule PLT Lab Routine Idiopathic chronic pancreatitis (HCC) Expected: 06/30/2024, Expires: 05/30/2025 Scheduled Procedures Name Priority Associated Diagnoses Date/Ti [...] 01/26/2019 Depression Monitoring 04/01/2025 04/01/2024 Diabetes Screening 05/29/2027 05/28/2024, 0 05/20/2024, 05/19/2024, Additional history exists DTap/Tdap Vaccines (8 - [...] this encounter Medical Devices Implanted Type Area Fisheries Specialist Device Identifier Shelf Expiration Date Model / Serial / Lot Cartridge Esophyx Z+ - [id number] Implanted:Qty: 1 on 04/28/2019 by Ellie Garcia MD at OR [facility]OGASTR[facility] [employer] 11/03/2020 [id number] / / [id number] Description:fasteners 10@11, 10@1, 4@5, 4@7 placed at GE junction (code 0278) Stent Panc Sgl Pigtail [id number] - [id number] Implanted:Qty: 1 on 05/10/2024 by Ellie Garcia MD at ENDOSCOPY [facility] N/A: Stomach COOK : IEMLDA MAYO 09/29/2025 [id number] / / [id number] documented as of this encounter Visit Diagnoses Diagnosis Idiopathic chronic pancreatitis (HCC)- Primary Chronic recurrent pancreatitis (HCC) Chronic pancreatitis documented in this encounter Advance Directives * Full Code (Latest Code Status on File) Date Activated Date Inactivated Comments 05/18/2024 3:33 PM 05/21/2024 5:10 PM This order r eflects the patients wishes and were consensually agreed upon. Question Answer Comments Discussion of Advance Directives occurred with: Patient Care Teams Coal Pipeline Operator Relationship Specialty Start Date End Date Williams Hauser III, MD [address] [facility] [place] [address] PCP - General Family Medicine 10/27/22 documented as of this encounter
--- OUTSIDE RECORDS SUMMARY | 2024-06-04 23:23 | External Medical Summary ---
Author Name Unknown Address Unknown Organization K0G:[facility] - [address] [place] [address] Laboratory Report Ordering Provider Test Date Status KATHERINE PELAYO 05/28/2024 12:52:32 Final Observation Date Value Abnormality Reference (Units ) Status SYNC LEUKOCYTES IN BLOOD BY AUTOMATED COUNT 05/28/2024 12:52:32 7.38 4.00-10.80 (K/uL) Final Segs 05/28/2024 12:52:32 64.0 40.0-75.0 (%) Final Lymphs % 05/28/2024 12:52:32 22.1 18.0-42.0 (%) Final Monos 05/28/2024 12:52:32 8.0 1.0-11.0 (%) Final Eosinophils 05/28/2024 12:52:32 4.7 0.0-6.0 (%) Final Basos 05/28/2024 12:52:32 1.2 0.0-2.0 (%) Final Absolute Segs 05/28/2024 12:52:32 4.72 1.80-7.70 (K/uL) Final Lymphs, absolute 05/28/2024 12:52:32 1.63 1.00-4.80 (K/ul) Final Monos, Abs 05/28/2024 12:52:32 0.59 0.00-1.10 (K/uL) Final Eos, Abs 05/28/2024 12:52:32 0.35 0.00-0.70 (K/uL) Final Basos, Abs 05/28/2024 12:52:32 0.09 0.00-0.20 (K/uL) Final Performing Location LABORATORY [facility] [address] - [address] [place] [address]
--- OUTSIDE RECORDS SUMMARY | 2024-06-04 23:23 | External Medical Summary ---
Author Name Unknown Address Unknown Organization [id number]:[facility] - [address] [place] [address] Laboratory Report Ordering Provider Test Date Status ELENOWESLY 05/19/2024 05:37:00 Final Observation Date Value Abnormality Reference (Units ) Status CRP, low-sensitivity 05/19/2024 05:37:00 43 Above high normal <=5 (mg/L) Final Performing Location LABORATORY [facility] - [address] [place] [address]
--- OUTSIDE RECORDS SUMMARY | 2024-06-04 23:24 | External Medical Summary ---
Author Name Unknown Address Unknown Organization K1F:LABORATORY [facility] - [address] [place] [address] Laboratory Report Ordering Provider Test Date Status NAVI RAMOS 05/18/2024 15:38:00 Final Observation Date Value Abnormality Reference (Units ) Status WBC, Total 05/18/2024 15:38:00 10.68 4.00-10.80 (K/uL) Final RBC 05/18/2024 15:38:00 3.76 3.85-5.15 (M/uL) Final Hemoglobin 05/18/2024 15:38:00 12.0 12.0-15.3 (g/dL) Final HCT 05/18/2024 15:38:00 36.1 36.0-45.2 (%) Final MCV 05/18/2024 15:38:00 96.0 81.5-97.5 (fL) Final MCH 05/18/2024 15:38:00 31.9 27.0-34.0 (pg) Final MCHC 05/18/2024 15:38:00 33.2 32.0-36.0 (g/dL) Final RDW 05/18/2024 15:38:00 12.9 11.5-15.5 (%) Final Platelets 05/18/2024 15:38:00 311 140-400 (K/uL) Final MPV 05/18/2024 15:38:00 7.8 6.6-11.1 (fL) Final Nucleated erythrocytes/100 leukocytes [Ratio] in Blood by Automated count 05/18/2024 15:38:00 0 <=0 (/100 WBCs) Final Performing Location LABORATORY [facility] - [address] [place] [address]
--- OUTSIDE RECORDS SUMMARY | 2024-06-04 23:24 | External Medical Summary ---
Author Name Unknown Address Unknown Organization K1F:LABORATORY [facility] - [address] [place] [address] Laboratory Report Ordering Provider Test Date Status NAVI RAMOS 05/18/2024 15:38:00 Final Observation Date Value Abnormality Reference (Units ) Status Lipase 05/18/2024 15:38:00 110 Above high normal 13 -60 (U/L) Final Performing Location LABORATORY [facility] - [address] [place] [address]
--- OUTSIDE RECORDS SUMMARY | 2024-06-04 23:24 | External Medical Summary ---
Author Name Unknown Address Unknown Organization K1F:[facility] - [address] [facility] [place] [address] Laboratory Report Ordering Provider Test Date Status NAVI RAMOS 05/18/2024 15:38:00 Final Observation Date Value Abnormality Reference (Units ) Status BUN 05/18/2024 15:38:00 7 6-20 (mg/dL) Final Creatinine 05/18/2024 15:38:00 0.7 0.5-1.0 (mg/dL) Final Glomerular filtration rate/1.73 sq M.predicted [Volume Rate/Area] in Serum, Plasma or Blood by Creatinine-based formula (CKD-EPI) 05/18/2024 15:38:00 >90 >=60 (mL/min) Final eGFR is calculated based on the CKD-EPI 2020 equation. Sodium 05/18/2024 15:38:00 139 135-146 (m mol/L) Final Potassium 05/18/2024 15:38:00 4.0 3.5-5.1 (m mol/L) Final Cl 05/18/2024 15:38:00 102 98-107 (mm ol/L) Final CO2 05/18/2024 15:38:00 30 22-32 (mmo l/L) Final Anion gap 05/18/2024 15:38:00 7 7-15 (mmol /L) Final Glucose 05/18/2024 15:38:00 91 70-120 (mg /dL) Final Albumin 05/18/2024 15:38:00 3.6 Below low normal 3.8 -5.0 (g/dL) Final AST (Aspartate aminotransferase) 05/18/2024 15:38:00 16 10-35 (U/L) Fin al Alk Phos 05/18/2024 15:38:00 102 35-130 (U/ L) Final Bilirubin, Total 05/18/2024 15:38:00 0.3 <=1 .2 (mg/dL) Final Calcium 05/18/2024 15:38:00 8.9 8.4-10.2 ( mg/dL) Final Protein 05/18/2024 15:38:00 6.1 6.0-8.3 (g /dL) Final ALT (Alanine aminotransferase) 05/18/2024 15:38:00 21 10-35 (U/L) Didier lin Performing Location LABORATORY [facility] - [address] [place], [place] [address] [address]
--- OUTSIDE RECORDS SUMMARY | 2024-06-04 23:24 | External Medical Summary | Summary of Care ---
Author Name Unknown Organization [facility] Address [address] [place] [address] Phone [phone] Care Team Providers Care Disease Management Nurse Name Role Phone Murtaza BENTON MD, Williams Payton Primary Care Provider [phone] Reason for Visit * Reason Onset Date Comments Advice 05/17/2024 Encounter Details Date Type Department Care Team (Late st Contact Info) Description 05/17/2024 Telephone Gastroenterology, [facility] [address] [facility] [place] [phone] Services, Scheduling [address] [place] [address] Advice Allergies Active Allergy Reactions Criticality Noted Date Comments Clindamycin Other (Please comment) 12/21/2014 Burned taste Muscle pain Doxycycline Low 08/22/2020 Other reaction(s): Metallic Taste Penicillins Unknown 10/07/2007 As a child Other reaction(s): UNKNOWN, CHILD ALLERGY documented as of this encounter (statuses as of 05/18/2024) Medications NATURAL SUPPLEMENT Take by mouth daily. Medical marijuana Suspended Loratadine 10 MG Oral Tablet Take 1 Tablet by mouth in the morning. Suspended Fluticasone Propionate 50 MCG/ACT Nasal Suspension Administer 1 Warren into nostril in the morning. Suspended Ondansetron HCl 4 MG Oral Tablet (Zofran)Indication s:Nausea and vomiting, intractability of vomiting not specified, unspecified vomiting type Take 1 Tablet by mouth every 6 hours as needed for Nausea. 30 Tablet 03/14/20 21 Suspended Cyclobenzaprine HCl 5 MG Oral Tablet (Flexeril)Indicati ons:Left thigh pain,Muscular pain Take 1 Tablet by mouth 2 times a day as needed for Muscle spasms. 20 Tablet 11/25/19 24 Suspended DULoxetine HCl 60 MG Oral Capsule Delayed Release Particles (Cymbalta) TAKE 1 CAPSULE BY MOUTH EVERY DAY DO NOT CRUSH OR CHEW 90 Capsule 3 01/07/20 24 Suspended traZODone HCl 100 MG Oral Tablet (Desyrel) TAKE 1 TABLET BY MOUTH EVERYDAY AT BEDTIME 90 Tablet 3 04/07/19 25 Suspended Pantoprazole Sodium 40 MG Oral Tablet Delayed Release (Protonix) Take 1 Tablet by mouth in the morning. 30 Tablet 5 04/14/19 25 Suspended Linzess 290 MCG Oral Capsule (linaCLOtide) Take 1 Capsule by mouth daily before breakfast. 30 Capsule 3 04/15/19 25 Suspended busPIRone HCl 15 MG Oral Tablet (Buspar) TAKE 1 TABLET BY MOUTH EVERY MORNING AND 1 TAB AT BEDTIME 180 Tablet 2 04/22/19 25 Suspended documented as of this encounter (statuses as of 05/18/2024) Active Problems Problem Noted Date Diagnosed Date [...] as of this encounter (statuses as of 05/18/2024) Resolved Problems Problem Noted Date Diagnosed Date [...] as of this encounter (statuses as of 05/18/2024) Immunizations Name Administration Dates Next Due HPV [...] encounter Miscellaneous Notes * Telephone Encounter - Zoe Greenberg CMA - 05/18/2024 1:14 PM EST Pt admitted to [facility] today. * Telephone Encounter - Patrick Diaz OSA - 05/17/2024 5:00 PM EST Pt was recently admitted in the hospital from Thursday05/10/24- Thursday05/15/24. She was diagnosed with severe pancreatitis and during that time she had a stent placed as well. She's been feeling so weird since everything has happened. Her BP was high before being discharged and felt off with them discharging her because they said it was ok and normal. She does have some in depth medical questions for the provider in regards to everything. She is looking for someone to please contact her as soon as possible. Stated she doesn't want to go to the ER but may end up going to just be safe. Please advise. Thank you documented in this encounter Plan of Treatment Upcoming Encounters Date Type Department Care Team (Latest Contact Info) Description 05/24/2024 11:00 AM EST Office Visit Gastroenterology , [facility] [address] [address] Myranda Mckeon CRNP [address] [address] 08/18/2024 8:00 AM EDT Hospital Encounter [facility], Endoscopy Room [facility] [address] [phone] Ellie Garcia MD [address] [place] [address] 08/18/2024 8:00 AM EDT - 08/18/2024 8:45 AM EDT Surgery [facility], Endoscopy Room [facility] [address] [place] [phone] Ellie Garcia MD [address] [place] [address] ENDOSCOPIC RETROGRADE CHOLANGIOPANCREATOGRAPHY (ERCP) DIAGNOSTIC 11/04/2024 8:40 AM EDT Office Visit [facility] [place] [address] [facility] [place] [address] Williams Hauser III, MD [address] [place] [address] Scheduled Procedures Name Priority Associated Diagnoses Date/Ti [...] 01/26/2019 Depression Monitoring 04/01/2025 04/01/2024 Diabetes Screening 05/18/2027 05/18/2024, 0 04/01/2024, 11/06/2023, Additional history exists DTap/Tdap Vaccines (8 - [...] this encounter Medical Devices Implanted Type Area Director Nursing Service Device Identifier Shelf Expiration Date Model / Serial / Lot Cartridge Esophyx Z+ - [id number] Implanted:Qty: 1 on 04/28/2019 by Ellie Garcia MD at OR [facility] [employer] 11/03/2020 [id number] / / [id number] Description:fasteners 10@11, 10@1, 4@5, 4@7 placed at GE junction (code [id number]) Stent Panc Sgl Pigtail [id number] - [id number] Implanted:Qty: 1 on 05/10/2024 by Ellie Garcia MD at ENDOSCOPY [facility] N/A: Stomach COOK : IMELDA MAYO 09/29/2025 [id number] / / [id number] documented as of this encounter Advance Directives * Full Code (Latest Code Status on File) Date Activated Date Inactivated Comments 05/18/2024 3:33 PM This order ref lects the patients wishes and were consensually agreed upon. Question Answer Comments Discussion of Advance Directives occurred with: Patient Care Teams Disease Management Nurse Relationship Specialty Start Date End Date Williams Hauser III, MD [address] [place] [address] PCP - General Family Medicine 10/27/22 documented as of this encounter
[2024-06-04] MEDS: MoRPHine SULFATE 4 MG/ML 1 ML CARP\\VIAL IV PRN (23:52)
[2024-06-05] MEDS: LORazepam 0.5 MG TAB PO PRN (01:21)
[2024-06-05] MEDS: LACTATED RINGER'S 1,000 ML IV ONE (05:10)
[2024-06-05 06:51] LABS: Basophils # (auto) 0.06 K/uL (0.00-0.20); Basophils % (auto) 0.6 %; Eosinophils # (auto) 0.35 K/uL (0.00-0.50); Eosinophils % (auto) 3.3 %; Hematocrit (blood only) 36.8 % (37.0-47.0); Hemoglobin 12.4 g/dl (12.0-16.0); Immature Granulocytes # (auto) 0.03 K/uL (0.01-0.20); Immature Granulocytes % (auto) 0.3 %; Lymphocytes # (auto) 1.55 K/uL (1.20-3.40); Lymphocytes % (auto) 14.8 %; Mean Corpuscular Hemoglobin 31.2 pg (25.0-34.0); Mean Corpuscular Hgb Conc 33.7 g/dL (32.0-36.0); Mean Corpuscular Volume 92.7 fL (80.0-100.0); Mean Platelet Volume 8.8 fL (9.4-12.4); Monocytes # (auto) 0.72 K/uL (0.11-0.59); Monocytes % (auto) 6.9 %; Neutrophils # (auto) 7.74 K/uL (1.40-6.50); Neutrophils % (auto) 74.1 %; Platelet Count 316 K/uL (130-400); RDW Coefficient of Variation 12.4 % (11.5-14.5); RDW Standard Deviation 42.5 fL (36.4-46.3); Red Blood Count 3.97 M/uL (4.20-5.40); White Blood Count 10.45 K/ul (4.8-10.8)
[2024-06-05 07:13] LABS: Albumin Globulin Ratio 1.7 (0.9-2); Albumin Level 3.6 gm/dl (3.4-5.0); BUN Creatinine Ratio 15.9 (10-20); Bilirubin,Total 0.4 mg/dl (0.2-1.0); Calcium 8.7 mg/dl (8.6-10.3); Creatinine Clr Calc Pharmacy 90.3 ml/min; Globulin 2.1 gm/dl (2.5-4.0); Potassium 4.2 mmol/L (3.5-5.1); Total Protein 5.7 gm/dl (6.0-8.3)
[2024-06-05] MEDS ORDERED: LORATADINE 10 MG TAB PO PRN (07:18)
[2024-06-05] MEDS ORDERED: FLUTICASONE PROPIONATE NA SPR 16 GM BTL PRN (07:18)
[2024-06-05] MEDS ORDERED: ACETAMINOPHEN 500 MG TAB PO PRN (07:20)
[2024-06-05] MEDS: DULoxetine HCL 60 MG CAP PO SCH (08:03)
[2024-06-05] MEDS: busPIRone 15 MG TAB PO SCH (08:03)
[2024-06-05] MEDS: PANTOprazole 40 MG TAB PO SCH (08:03)
[2024-06-05] MEDS: ENOXAPARIN INJ 40 MG/0.4 ML SYR SQ SCH (08:04)
--- NOTE | 2024-06-05 09:06 | Gastrointestinal Consultation ---
Date of Consultation June 05, 2024 Assessment & Plan (1) Acute on chronic pancreatitis: Clinical picture consistent with mild pancreatitis possibly related to recent stent placement. Pancreatic imaging looks good. No signs of ascites or pseudocyst formation. Continue present medical management with analgesics. Can start clear liquid diet. Suspect her symptoms will improve with medical management alone for now. She will follow-up with [facility] as an outpatient History of Present Illness Reason for Consultation: Acute on chronic pancreatitis Attending Physician: Hussein Zambrano MD History of Present Illness Patient with a history of pancreatitis diagnosed with pancreas divisum. Had a minor papilla stent placement last month complicated by severe pancreatitis treated medically with resolution. Had initially been admitted here transferred to [facility] for management. To be doing well over the last few weeks until yesterday when she developed abdominal pain nausea but no vomiting. No change in bowel habits no melena no hematochezia. On admission her lipase was elevated to 393. CT scan showed no significant pancreatitis but documented presence of pancreatic duct stent. No other pathology. Allergies Allergy/AdvReac Type Severity Reaction Status Date / Time clindamycin Allergy Intermediate muscle Verified 06/04/24 20:11 aches/metal taste in mouth Penicillins Allergy Unknown UNKNOWN, Verified 06/04/24 20:11 CHILD ALLERGY doxycycline AdvReac Mild Metallic Verified 06/04/24 20:11 Taste Home Medications Medication Instructions Recorded Confirmed Type duloxetine 60 mg capsule,delayed 60 mg PO QAM 03/01/19 06/04/24 History release (Cymbalta) fluticasone propionate 50 2 spray intranasal DAILY PRN 08/14/20 06/04/24 History mcg/actuation nasal Allergy Symptoms spray,suspension loratadine 10 mg tablet (Claritin) 10 mg PO QAM PRN Allergic Symptoms 08/14/20 06/04/24 History trazodone 100 mg tablet 100 mg PO HS 06/26/22 06/04/24 History ondansetron 4 mg disintegrating 4 mg PO Q6H PRN nausea and 07/20/23 06/04/24 Rx tablet vomiting #12 tabs buspirone 15 mg tablet 15 mg PO AMHS 05/11/24 06/04/24 History linaclotide 290 mcg capsule 290 mcg PO DAILYBB 05/11/24 06/04/24 History (Linzess) pantoprazole 40 mg tablet,delayed 40 mg PO QAM 05/11/24 06/04/24 History release oxycodone 5 mg tablet 5 mg PO Q4H PRN pain #7 tabs 05/15/24 06/04/24 Rx famotidine 20 mg tablet 20 mg PO HS 06/04/24 06/04/24 History Patient History Medical History History of stomach ulcers Depression Anxiety Surgical History History of colonoscopy History of hysterectomy with unilateral oophorectomy d/t endometriosis (right removed) History of bilateral tubal ligation History of dilatation and curettage History of esophagogastroduodenoscopy (EGD) History of tooth extraction Family History Mother Family history of reaction to anesthesia SLOW TO WAKE UP Diabetes Lung cancer Father Cerebral aneurysm Social History Smoking Status: Never smoker Second Hand Exposure: No; Do You Dip or Chew Tobacco: No; Hx Alcohol Use: No Hx Substance Use: No Preferred Language: Chinese Communication Ability: Effective Striper Required: No Beliefs That Will Affect Care: None marital status: Single Current Living Situation: Spouse Current Living Situation Comment: Lives with fiance and DAUGHTER current occupational status: unemployed and disabled current occupation: HAS NOT WORKED 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 How many Children do You have: 2 Other Information That Helps Us Care for You: No Feels Safe at Home: Yes Safety Concerns: Feels Safe At This Time during the past year weight has: decreased > 10 lbs Assistive Devices: None Review of Systems Review of Systems: No fever No chills No SOB No CP Moderate Abd pain Physical Exam Physical Exam: Eyes; anicteric HENT No masses Chest clear to A Cor S1, S2 physiologic Abd: softer mild epigastric tenderness no masses no rebound no guarding Ext no edema Results & Data Vital Signs (Past 12 Hours) Vital Signs Temp Pulse Pulse Resp BP BP Pulse Ox 06/05/24 07:04 36.6 C 70 15 105/65 97 06/04/24 23:00 36.5 C 59 L 14 126/78 100 06/04/24 22:39 76 12 94 06/04/24 22:00 105 H 118/64 94 06/04/24 21:39 105 H 20 118/64 95 06/04/24 21:30 74 16 96 06/04/24 21:15 67 14 95 06/04/24 20:57 71 15 120/81 97 06/04/24 20:45 84 21 97 06/04/24 20:12 76 22 95 06/04/24 20:07 83 O2 Del Method 06/05/24 07:04 Room Air 06/04/24 23:00 Room Air 06/04/24 22:39 06/04/24 22:00 06/04/24 21:39 06/04/24 21:30 06/04/24 21:15 06/04/24 20:57 06/04/24 20:45 06/04/24 20:12 06/04/24 20:07 Laboratory Results Laboratory Results - last 48 hr 06/04/24 06/04/24 06/04/24 18:08 18:09 18:47 WBC 9.56 RBC 4.46 Hgb 13.9 Hct 41.4 MCV 92.8 MCH 31.2 MCHC 33.6 RDW Std Deviation 42.4 RDW Coeff of Leopoldo 12.3 Plt Count 394 MPV 9.0 L Immature Gran % (Auto) 0.2 Neut % (Auto) 72.4 Lymph % (Auto) 15.8 Bledsoe % (Auto) 7.9 Eos % (Auto) 2.9 Baso % (Auto) 0.8 Neut # (Auto) 6.91 H Lymph # (Auto) 1.51 Bledsoe # (Auto) 0.76 H Eos # (Auto) 0.28 Baso # (Auto) 0.08 Immature Gran # (Auto) 0.02 PT 10.5 INR 1.0 Sodium 135 L Potassium 4.2 Chloride 101 Carbon Dioxide 32 Anion Gap 2 L BUN 15 Creatinine 0.76 Est Cr Clr Drug Dosing Not Reportable eGFR 102.16 BUN/Creatinine Ratio 19.7 Glucose 97 Lactate 1.0 Calcium 9.8 Total Bilirubin 0.4 AST 19 ALT 18 Alkaline Phosphatase 85 Troponin I High Sens < 2.3 Total Protein 7.3 Albumin 4.5 Globulin 2.8 Albumin/Globulin Ratio 1.6 Lipase 393 H HCG, Qual Negative Urine Color Yellow Urine Appearance Clear Urine pH 6.0 Ur Specific [place] 1.009 Urine Protein Negative Urine Glucose (UA) Negative Urine Ketones Negative Urine Blood Negative Urine Nitrite Negative Urine Bilirubin Negative Urine Urobilinogen Negative Ur Leukocyte Esterase Negative 06/05/24 06:10 WBC 10.45 RBC 3.97 L Hgb 12.4 Hct 36.8 L MCV 92.7 MCH 31.2 MCHC 33.7 RDW Std Deviation 42.5 RDW Coeff of Leopoldo 12.4 Plt Count 316 MPV 8.8 L Immature Gran % (Auto) 0.3 Neut % (Auto) 74.1 Lymph % (Auto) 14.8 Bledsoe % (Auto) 6.9 Eos % (Auto) 3.3 Baso % (Auto) 0.6 Neut # (Auto) 7.74 H Lymph # (Auto) 1.55 Bledsoe # (Auto) 0.72 H Eos # (Auto) 0.35 Baso # (Auto) 0.06 Immature Gran # (Auto) 0.03 PT INR Sodium 139 Potassium 4.2 Chloride 106 Carbon Dioxide 31 Anion Gap 2 L BUN 11 Creatinine 0.69 Est Cr Clr Drug Dosing 90.3 eGFR 113.14 BUN/Creatinine Ratio 15.9 Glucose 97 Lactate Calcium 8.7 Total Bilirubin 0.4 AST 16 ALT 16 Alkaline Phosphatase 68 Troponin I High Sens Total Protein 5.7 L D Albumin 3.6 Globulin 2.1 L Albumin/Globulin Ratio 1.7 Lipase HCG, Qual Urine Color Urine Appearance Urine pH Ur Specific [place] Urine Protein Urine Glucose (UA) Urine Ketones Urine Blood Urine Nitrite Urine Bilirubin Urine Urobilinogen Ur Leukocyte Esterase Diagnostic Findings Abdomen/Pelvis CT 06/04/24 18:55 HISTORY: Epigastric abdominal pain TECHNIQUE: CT of the abdomen pelvis with contrast. 93 cc of Optiray 320 IV contrast was administered. Images are presented in axial, sagittal, and coronal reformats. COMPARISON: Abdominal MRI dated 05/18/2024. FINDINGS: Mild atelectasis at the lung bases. The liver is unremarkable. The gallbladder is surgically absent. A stent is present extending along the main pancreatic duct into the duodenum. Mild intra and extrahepatic biliary ductal dilation. Common bile duct measuring up to 1.3 cm in diameter on series 300 image 59. The distal common bile duct tapers. No filling defect in the distal common bile duct.7 The spleen and adrenal glands are unremarkable. The pancreatic parenchyma is unremarkable. The kidneys are unremarkable. Distal esophagus and stomach are unremarkable. The pigtail from the pancreatic duct stent is present in the duodenal lumen. The small bowel loops are normal in caliber. A normal caliber appendix is identified in the right pelvis. The colon is normal in caliber. No ascites or pneumoperitoneum. No abdominal aortic aneurysm. There is a retroaortic left renal vein. Urinary bladder is unremarkable. The uterus is absent. Small follicles are functional cysts in the left ovary. The largest measuring up to 2.3 cm. These require no follow-up. No free pelvic fluid. The soft tissues of the body wall are unremarkable. No acute osseous abnormality.Mild IMPRESSION: 1. No acute findings in the abdomen or pelvis. 2. Pancreatic duct stent with pigtail in the duodenal lumen. 3. Postsurgical changes of cholecystectomy. Mild intra and extrahepatic biliary ductal dilation is nonspecific and can be a common incidental finding following cholecystectomy. Common bile duct measuring up to 1.3 cm in diameter and tapers distally. No obstructing stone or mass is visible in the distal common bile duct. Recommend correlation with biliary enzyme levels. 4. Additional chronic and/or incidental findings as detailed above. Electronically signed by Williams Melendez 06-04-2024 7:55 PM PG Care Time/CCT Total # of Minutes Spent Total Time Spent with Patient: Total time spent is greater than 50% in coordination of care (as documented) at patient's floor/unit and/or counseling patient: Coding Level of Care Code 70209 INT INP/OBS CARE 2/55MIN Diagnoses Acute on chronic pancreatitis K85.90; K86.1
[2024-06-05] MEDS: oxyCODONE HCL IR 5 MG TAB (IMMEDIATE RELEASE) PO PRN (10:35)
[2024-06-05] MEDS: LACTATED RINGER'S 1,000 ML IV SCH (11:02)
[2024-06-05] MEDS: ONDANSETRON INJ 2 MG/ML 2 ML VIAL IV PRN (11:02)
--- NOTE | 2024-06-05 12:20 | Hospitalist Progress Note ---
Date of Service June 05, 2024 Assessment & Plan (1) Pancreatic divisum: (2) Acute on chronic pancreatitis: Plan: Rosalina Teran is a 38y/o F with PMHx significant for pancreatic divisum, chronic idiopathic pancreatitis s/p sphincterotomy and stent placement, allergic rhinitis, fatty liver, GERD s/p failed TIF fundoplication, history of laparoscopic cholecystectomy in July 2020, IBS-C, lumbar spondylosis with radiculopathy, cervical spondylosis with radiculopathy and depression/anxiety with medical marijuana use who presented to the ED on 06/04/24 with achy upper abdominal/epigastric pain and nausea. She was ultimately found to have acute on chronic pancreatitis. Of notable history, patient underwent ERCP and EUS with sphincterotomy and stent placement at the minor papilla with Dr. Garcia on 05/10/24 at [facility]. Postoperative course was complicated by recurrent pancreatitis. Patient was initially seen at [facility] back in mid-April and was found to meet SIRS criteria in the setting of possible necrotizing pancreatitis noted on MRCP. Patient ultimately was transferred to [facility] for further evaluation. Did not require further surgical intervention; patient was managed conservatively with bowel rest, IV fluids and PRN pain control. She was discharged home from [facility] on 05/21/24. Initial lipase of 393. Follows with [facility] at [facility] on an outpatient basis. CTAP on admission with no acute findings. Notes pancreatic duct stent with pigtail in the duodenal lumen. Unremarkable pancreatic parenchyma. Appreciate GI consult. Mild pancreatitis possibly related to recent stent placement. Continue present medical management with clear liquid diet, IVF, PRN pain control and PRN antiemetics. Repeat lipase in AM. Will need to have outpatient GI follow-up appointment. Set to have repeat ERCP with Dr. Garcia to undergo stent removal and exchange on 08/18/24. (3) Anxiety: (4) Depression: Plan: Chronic, stable. Continue BuSpar, Cymbalta and trazodone. Does use medical ramonita adan at home. (5) Irritable bowel syndrome with constipation: Plan: Continue Linzess. (6) GERD (gastroesophageal reflux disease): Plan: Continue Pepcid. DVT Prophylaxis: SQ Lovenox Code Status: FULL CODE PCP: Williams Hauser MD Disposition: Admitted in med/surg. Anticipate at least another 2-3 days of inpatient management depending on clinical course. Patient seen in collaboration with Dr. Zambrano. Please see addendum. I spent a total of 40 minutes coordinating, documenting, and providing care for this patient excluding time spent in the performance of separately billed services or time spent by another provider/QHP. This included personally reviewing all current laboratories and imaging studies, medical reconciliation, outpatient chart review and discussion with specialists. This chart was completed in part utilizing Speech Voice Recognition Software. Grammatical errors, random word insertions, pronoun errors, and incomplete sentences are an occasional consequence of this system due to software limitations, ambient noise, and hardware issues. Any formal questions or concerns about the content, text, or information contained within the body of this dictation should be directly addressed to the provider for clarification. Admission and Anticipated Discharge Date Admission Date: June 04, 2024 Supervising Physician Co-Signing Physician Notes Patient is seen and examined at bedside. Abdominal pain, nausea slowly improving. Tolerating current diet. Offers no other complaints today. On exam patient is moderately built and nourished, no apparent distress, normocephalic atraumatic, EOMI, normal breath sounds, clear to auscultation, S1-S2, no murmur, abdomen soft, mild tenderness predominantly epigastric region, normal bowel sounds, no guarding or rigidity, alert, awake, oriented, grossly no focal deficits. Patient is currently being treated for acute on chronic pancreatitis.H/O pancreatic divisum S/P stent placement last month. Continue IV fluids, pain control. Appreciate GI input Clear liquid diet for now. Needs follow-up with gastroenterology on discharge. I personally interviewed and examined the patient at bedside. I have reviewed the advanced practitioner's documentation on the date of service referred in note and agree with plan. Patient's care is coordinated with Dasia Moses PA-C. Please refer to the documentation above for details of patient's presentation and for discussion of other issues. I spent a total of-35 minutes coordinating, documenting, and providing care for this patient excluding time spent in the performance of separately billed services or time spent by another provider/QHP. Subjective Some improvement in epigastric pain this morning. Endorses intermittent nausea but no vomiting. Had some chills but no recently reported fevers. Spoke with Dr. Conn on [facility] this morning. Denies any SOB or chest pain. Most recent BM yesterday morning/early afternoon. Not passing much gas. Review of Systems Review of Systems: At least ten systems reviewed and negative, except as noted in the subjective section. Physical Exam Physical Exam: General: WD/WN, NAD, sitting up in bed, very pleasant, conversing appropriately. A+Ox3. HEENT: Normocephalic, atraumatic. Conjunctivae normal. External ear and nose normal, oropharynx normal. Respiratory: Normal respiratory effort, lungs clear to auscultation bilaterally. No accessory muscle use. Cardiovascular: Regular rate/rhythm, normal peripheral pulses, no BLE edema. Abdomen/GI: Normoactive bowel sounds, soft. Nondistended. + TTP in epigastrium. No guarding. No rebound tenderness. Extremities/Musculoskeletal: No cyanosis or clubbing, extremities motor strength intact, moves all extremities. Neurologic: No overt focal deficits, CN's II-XI not formally tested but appear grossly intact bilaterally. Results & Data Results & Data Vital Signs (Past 12 Hours) Vital Signs Temp Pulse Resp BP Pulse Ox O2 Del Method 06/05/24 07:04 36.6 C 70 15 105/65 97 Room Air Laboratory Results Short CBC 06/04/24 06/05/24 Range/Units 18:08 06:10 WBC 9.56 10.45 (4.8-10.8) K/ul Hgb 13.9 12.4 (12.0-16.0) g/dl Hct 41.4 36.8 L (37.0-47.0) % Plt Count 394 316 (130-400) K/uL BMP 06/04/24 06/05/24 18:08 06:10 Sodium 135 L 139 Potassium 4.2 4.2 Chloride 101 106 Carbon Dioxide 32 31 BUN 15 11 Creatinine 0.76 0.69 Glucose 97 97 Calcium 9.8 8.7 Liver Function 06/04/24 06/05/24 Range/Units 18:08 06:10 Total Bilirubin 0.4 0.4 (0.2-1.0) mg/dl AST 19 16 (13-39) U/L ALT 18 16 (7-52) U/L Alkaline Phosphatase 85 68 (34-104) U/L Albumin 4.5 3.6 (3.4-5.0) gm/dl Urine 06/04/24 Range/Units 18:09 Urine Color Yellow Urine Appearance Clear (Clear) Urine pH 6.0 (4.5-7.5) Ur Specific [place] 1.009 (1.000-1.030) Urine Protein Negative (Negative) Urine Glucose (UA) Negative (Negative) Diagnostic Findings Abdomen/Pelvis CT 06/04/24 18:55 HISTORY: Epigastric abdominal pain TECHNIQUE: CT of the abdomen pelvis with contrast. 93 cc of Optiray 320 IV contrast was administered. Images are presented in axial, sagittal, and coronal reformats. COMPARISON: Abdominal MRI dated 05/18/2024. FINDINGS: Mild atelectasis at the lung bases. The liver is unremarkable. The gallbladder is surgically absent. A stent is present extending along the main pancreatic duct into the duodenum. Mild intra and extrahepatic biliary ductal dilation. Common bile duct measuring up to 1.3 cm in diameter on series 300 image 59. The distal common bile duct tapers. No filling defect in the distal common bile duct.7 The spleen and adrenal glands are unremarkable. The pancreatic parenchyma is unremarkable. The kidneys are unremarkable. Distal esophagus and stomach are unremarkable. The pigtail from the pancreatic duct stent is present in the duodenal lumen. The small bowel loops are normal in caliber. A normal caliber appendix is identified in the right pelvis. The colon is normal in caliber. No ascites or pneumoperitoneum. No abdominal aortic aneurysm. There is a retroaortic left renal vein. Urinary bladder is unremarkable. The uterus is absent. Small follicles are functional cysts in the left ovary. The largest measuring up to 2.3 cm. These require no follow-up. No free pelvic fluid. The soft tissues of the body wall are unremarkable. No acute osseous abnormality.Mild IMPRESSION: 1. No acute findings in the abdomen or pelvis. 2. Pancreatic duct stent with pigtail in the duodenal lumen. 3. Postsurgical changes of cholecystectomy. Mild intra and extrahepatic biliary ductal dilation is nonspecific and can be a common incidental finding following cholecystectomy. Common bile duct measuring up to 1.3 cm in diameter and tapers distally. No obstructing stone or mass is visible in the distal common bile duct. Recommend correlation with biliary enzyme levels. 4. Additional chronic and/or incidental findings as detailed above. Electronically signed by Williams Melendez 06-04-2024 7:55 PM (4) Depression Depression Type: unspecified Qualified Code(s): F32.A - Depression, unspecified (6) GERD (gastroesophageal reflux disease) Esophagitis presence: without esophagitis Qualified Code(s): K21.9 - Gastro- esophageal reflux disease without esophagitis
[2024-06-05] MEDS: traZODone HCL 100 MG TAB PO SCH (20:36)
[2024-06-05] MEDS: FAMOTIDINE 20 MG TAB PO SCH (20:36)
--- NOTE | 2024-06-06 05:43 | Electrocardiogram Report ---
Test Reason : Blood Pressure : */* mmHG Vent. Rate : 64 BPM Atrial Rate : 64 BPM P-R Int : 120 ms QRS Dur : 72 ms QT Int : 410 ms P-R-T Axes : 39 31 55 degrees QTcB Int : 422 ms Normal sinus rhythm Low voltage QRS Borderline ECG When compared with ECG of 17-May-2024 18:25, Nonspecific T wave abnormality, improved in Anterior leads Confirmed by Terrence Galdamez ([id number]) on 06/06/2024 5:43:43 AM Referred By: REFERRED SELF Confirmed By: Terrence Galdamez
[2024-06-06] MEDS: LINACLOTIDE 145 MCG CAPSULE PO SCH (06:23)
[2024-06-06 07:46] VITALS: RESP 16
[2024-06-06 07:57] LABS: Hematocrit (blood only) 36.9 % (37.0-47.0); Hemoglobin 12.2 g/dl (12.0-16.0); Mean Corpuscular Hemoglobin 30.9 pg (25.0-34.0); Mean Corpuscular Hgb Conc 33.1 g/dL (32.0-36.0); Mean Corpuscular Volume 93.4 fL (80.0-100.0); Mean Platelet Volume 8.9 fL (9.4-12.4); Platelet Count 300 K/uL (130-400); RDW Coefficient of Variation 12.5 % (11.5-14.5); RDW Standard Deviation 42.8 fL (36.4-46.3); Red Blood Count 3.95 M/uL (4.20-5.40); White Blood Count 7.15 K/ul (4.8-10.8)
[2024-06-06 08:23] LABS: Albumin Globulin Ratio 1.7 (0.9-2); Albumin Level 3.5 gm/dl (3.4-5.0); BUN Creatinine Ratio 7.9 (10-20); Bilirubin,Total 0.4 mg/dl (0.2-1.0); Calcium 8.9 mg/dl (8.6-10.3); Globulin 2.1 gm/dl (2.5-4.0); Magnesium 1.6 mg/dl (1.7-2.4); Potassium 4.5 mmol/L (3.5-5.1); Total Protein 5.6 gm/dl (6.0-8.3)
[2024-06-06] MEDS: MAGNESIUM SULFATE / D5W 1 GM/100 ML BAG IV SCH (09:41)
--- NOTE | 2024-06-06 13:17 | Hospitalist Progress Note ---
Date of Service June 06, 2024 Assessment & Plan (1) Pancreatic divisum: (2) Acute on chronic pancreatitis: Plan: Rosalina Teran is a 38y/o F with PMHx significant for pancreatic divisum, chronic idiopathic pancreatitis s/p sphincterotomy and stent placement, allergic rhinitis, fatty liver, GERD s/p failed TIF fundoplication, history of laparoscopic cholecystectomy in July 2020, IBS-C, lumbar spondylosis with radiculopathy, cervical spondylosis with radiculopathy and depression/anxiety with medical marijuana use who presented to the ED on 06/04/24 with achy upper abdominal/epigastric pain and nausea. She was ultimately found to have acute on chronic pancreatitis. Of notable history, patient underwent ERCP and EUS with sphincterotomy and stent placement at the minor papilla with Dr. Garcia on 05/10/24 at [facility]. Postoperative course was complicated by recurrent pancreatitis. Patient was initially seen at [facility] back in mid-April and was found to meet SIRS criteria in the setting of possible necrotizing pancreatitis noted on MRCP. Patient ultimately was transferred to [facility] for further evaluation. Did not require further surgical intervention; patient was managed conservatively with bowel rest, IV fluids and PRN pain control. She was discharged home from [facility] on 05/21/24. Initial lipase of 393. CTAP on admission with no acute findings. Notes pancreatic duct stent with pigtail in the duodenal lumen. Unremarkable pancreatic parenchyma. Appreciate GI consult. Mild pancreatitis possibly related to recent stent placement. Will advance diet to full liquids today, continue IVF for now, lipase down trending. Will need to have outpatient GI follow-up appointment. Set to have repeat ERCP with Dr. Garcia to undergo stent removal and exchange on 08/18/24. (3) Anxiety: (4) Depression: Plan: Chronic, stable. Continue BuSpar, Cymbalta and trazodone. Does use medical marijuana at home. (5) Irritable bowel syndrome with constipation: Plan: Pt reports not taking linzess for several months will discontinue (6) GERD (gastroesophageal reflux disease): Plan: Continue Pepcid. DVT Prophylaxis: SQ Lovenox Code Status: FULL CODE PCP: Williams Hauser MD Disposition: Admitted in med/surg. advance diet as tolerated, will be able to d/c once tolerating diet Patient seen in collaboration with Dr. Zambrano. Please see addendum. I spent a total of 41 minutes coordinating, documenting, and providing care for this patient excluding time spent in the performance of separately billed services or time spent by another provider/QHP. This included personally reviewing all current laboratories and imaging studies, medical reconciliation, outpatient chart review and discussion with specialists. Admission and Anticipated Discharge Date Admission Date: June 04, 2024 Supervising Physician Co-Signing Physician Notes Patient is seen and examined at bedside. States feeling a lot better today. Abdominal pain much improved. Tolerating liquid diet. No new complaints today. On exam patient is moderately built and nourished, no apparent distress, normocephalic atraumatic, EOMI, normal breath sounds, clear to auscultation, S1- S2, no murmur, abdomen soft, mild tenderness predominantly epigastric region, normal bowel sounds, no guarding or rigidity, alert, awake, oriented, grossly no focal deficits. Patient is currently being treated for acute on chronic pancreatitis.H/O pancreatic divisum S/P stent placement last month. Advance diet as tolerated. Continue IV fluids. Lipase levels trending down. Appreciate GI input. Needs follow-up with gastroenterology on discharge. I personally interviewed and examined the patient at bedside. I have reviewed the advanced practitioner's documentation on the date of service referred in note and agree with plan. Patient's care is coordinated with Ariadne Eaton PA-C. Please refer to the documentation above for details of patient's presentation and for discussion of other issues. I spent a total of33 minutes coordinating, documenting, and providing care for this patient excluding time spent in the performance of separately billed services or time spent by another provider/QHP. Subjective Pt was seen in room 353-2. F/U Acute on chronic pancreatitis. She reports tolerating clears without difficulty. She denies nausea, but does still have some off and on epigastric pain. She denies f/c/s, chest pain, vomiting. She reports passing minimal flatus and no bm. Review of Systems Review of Systems: All systems reviewed & are unremarkable except as noted in HPI & below Physical Exam Physical Exam: Gen: WD/WN, NAD, A&O x3 HEENT: Normocephalic, atraumatic, conjunctivae moist, sclerae anicteric, mucous membranes moist. Lung: Clear to Auscultation bilaterally, no wheezes/rales/rhonchi Heart: Regular rate, regular rhythm, no murmurs, rubs, or gallops Abdomen: Soft, TTP in epigastrum, ND +BS x 4 Extremities: No edema Skin: Warm, no rash, negative turgor. Results & Data Results & Data Vital Signs (Past 12 Hours) Vital Signs Temp Pulse Resp BP Pulse Ox O2 Del Method 06/06/24 07:14 36.5 C 62 16 144/76 H 99 Room Air Laboratory Results I have independently reviewed and interpreted patient's cbc, bmp, mag Short CBC 06/06/24 Range/Units 07:06 WBC 7.15 (4.8-10.8) K/ul Hgb 12.2 (12.0-16.0) g/dl Hct 36.9 L (37.0-47.0) % Plt Count 300 (130-400) K/uL BMP 06/06/24 07:06 Sodium 142 Potassium 4.5 Chloride 106 Carbon Dioxide 34 H BUN 6 Creatinine 0.76 Glucose 90 Calcium 8.9 Liver Function 06/06/24 Range/Units 07:06 Total Bilirubin 0.4 (0.2-1.0) mg/dl AST 13 (13-39) U/L ALT 15 (7-52) U/L Alkaline Phosphatase 66 (34-104) U/L Albumin 3.5 (3.4-5.0) gm/dl Medications Administered Current Inpatient Medications Acetaminophen (Acetaminophen 500 Mg Tab) 500 mg PO Q6H PRN PRN Reason: fever/pain Stop: 07/05/24 07:19 Buspirone HCl (Buspirone 15 Mg Tab) 15 mg PO [facility] Stop: 07/05/24 08:59 Last Admin: 06/06/24 08:07 Dose: 15 mg Duloxetine HCl (Duloxetine Hcl 60 Mg Cap) [facility] Stop: 07/05/24 08:59 Last Admin: 06/06/24 08:07 Dose: 60 mg Enoxaparin Sodium (Enoxaparin Inj 40 Mg/0.4 Ml Syr) 40 [facility]Q [facility] Stop: 07/05/24 08:59 Last Admin: 06/06/24 08:07 Dose: 40 mg Famotidine (Famotidine 20 Mg Tab) 20 mg PO HS [facility] Stop: 07/05/24 20:59 Last Admin: 06/05/24 20:36 Dose: 20 mg Fluticasone Propionate (Fluticasone Propionate Na Spr 16 Gm Btl) 2 sprays NA DAILY PRN PRN Reason: Allergy Symptoms Stop: 07/05/24 07:17 Promethazine HCl (Phenergan) 6.25 mg in 50.25 mls @ 201 mls/hr IV Q6H PRN PRN Reason: Nausea And Vomiting Stop: 07/04/24 20:08 Linaclotide (Linaclotide 145 Mcg Capsule) 290 mcg PO DAILYBB ALEX Stop: 07/06/24 06:29 Last Admin: 06/06/24 06:23 Dose: 290 mcg Loratadine (Loratadine 10 Mg Tab) 10 mg PO QAM PRN PRN Reason: Allergic Symptoms Stop: 07/05/24 07:17 Lorazepam (Lorazepam 0.5 Mg Tab) 0.5 mg PO TID PRN PRN Reason: Anxiety Stop: 07/04/24 22:38 Last Admin: 06/05/24 01:21 Dose: 0.5 mg Morphine Sulfate (Morphine Sulfate 4 Mg/Ml 1 Ml Carp\Vial) 4 mg IV Q4H PRN PRN Reason: Pain Stop: 06/18/24 20:08 Last Admin: 06/05/24 23:29 Dose: 4 mg Ondansetron HCl (Ondansetron Inj 2 Mg/Ml 2 Ml Vial) 4 mg IV Q4H PRN PRN Reason: Nausea Stop: 07/05/24 10:36 Last Admin: 06/05/24 23:29 Dose: 4 mg Oxycodone HCl (Oxycodone Hcl Ir 5 Mg Tab (Immediate Release)) 5 - 10 mg PO QID PRN PRN Reason: Pain Stop: 06/18/24 20:06 Last Admin: 06/05/24 14:30 Dose: 10 mg Pantoprazole Sodium (Pantoprazole 40 Mg Tab) 40 mg PO QAM ALEX Stop: 07/05/24 08:59 Last Admin: 06/06/24 08:08 Dose: 40 mg Trazodone HCl (Trazodone Hcl 100 Mg Tab) 100 mg PO HS ALEX Stop: 07/05/24 20:59 Last Admin: 06/05/24 20:36 Dose: 100 mg (4) Depression Depression Type: unspecified Qualified Code(s): F32.A - Depression, unspecified (6) GERD (gastroesophageal reflux disease) Esophagitis presence: without esophagitis Qualified Code(s): K21.9 - Gastro- esophageal reflux disease without esophagitis
[2024-06-06] MEDS: SODIUM CHLORIDE 0.9% 1,000 ML IV SCH (15:06)
[2024-06-06 16:12] VITALS: TEMP 98.1
[2024-06-06 20:35] VITALS: O2SAT 98
[2024-06-07 07:02] VITALS: BP 126/79; PULSE 59
[2024-06-07 07:35] LABS: Magnesium 1.8 mg/dl (1.7-2.4)
--- NOTE | 2024-06-07 09:56 | Discharge Summary ---
Discharge Summary Date of Service June 07, 2024 Principal Dx & Hospital Course #1 = Principal Diagnosis (1) Pancreatic divisum: (2) Acute on chronic pancreatitis: Rosalina Teran is a 38y/o F with PMHx significant for pancreatic divisum, chronic idiopathic pancreatitis s/p sphincterotomy and stent placement, allergic rhinitis, fatty liver, GERD s/p failed TIF fundoplication, history of laparoscopic cholecystectomy in July 2020, IBS-C, lumbar spondylosis with radiculopathy, cervical spondylosis with radiculopathy and depression/anxiety with medical marijuana use who presented to the ED on 06/04/24 with achy upper abdominal/epigastric pain and nausea. She was ultimately found to have acute on chronic pancreatitis with elevated lipase. Of notable history, patient underwent ERCP and EUS with sphincterotomy and stent placement at the minor papilla with Dr. Garcia on 05/10/24 at [facility]. Postoperative course was complicated by recurrent pancreatitis. Patient was initially seen at [facility] back in mid-April and was found to meet SIRS criteria in the setting of possible necrotizing pancreatitis noted on MRCP. Patient ultimately was transferred to [facility] for further evaluation. Did not require further surgical intervention; patient was managed conservatively with bowel rest, IV fluids and PRN pain control. She was discharged home from [facility] on 05/21/24. Her presenting lipase was 393. CTAP on admission with no acute findings. Notes pancreatic duct stent with pigtail in the duodenal lumen. Unremarkable pancreatic parenchyma. CT Gastroenterology was consulted and felt clinical picture consistent with mild pancreatitis possibly related to recent stent placement. She was started on IVF and bowel rest with slow advancement of diet as abdominal pain improved. On day of discharge her lipase was 103 U/L and her abdominal pain was much improved. She was tolerating a low fat diet at discharge. Her Vitals were stable on day of discharge. She is moving bowels appropriately. She will need to have close GI follow upon discharge. (3) Anxiety: (4) Depression: (5) Irritable bowel syndrome with constipation: (6) GERD (gastroesophageal reflux disease): Notes For Next Care Provider Please ensure pt has a GI follow up prior to stent procedure on 08/18 given the recurrent nature of pancreatitis. Patient has a lot of concerns regarding dietary restrictions and feels she is losing weight with the low fat diet. A assistant store manager consult may be appropriate. Medication Changes From Visit None Admission HPI Per Admitting Provider History obtained from patient and records. Medical history significant for recurrent pancreatitis, pancreatic divisum as per records, NAFLD, GERD status post surgery, IBS constipation predominant, anxiety/mood disorder, past tobacco abuse. 2 [facility] admissions last month for recurrent pancreatitis. Recent overnight admission May 17 to 2023 for necrotizing pancreatitis Patient transferred to [facility] where she stayed for 3 days. No procedures done during stay. Repeat ERCP contemplated August 18, 2024 as per records. 2 days ago, patient noted achy upper abdominal pain reminiscent of pancreatitis attack. Some nausea without emesis. Dark brown stools. No fever, no chills. Denies fatty food or alcohol intake. 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 Admission Exam Per Admitting Provider GENERAL: Slightly uncomfortable, pleasant, no respiratory distress SKIN: Normal color, warm HEENT: [place] palpebral conjunctivae, no ptosis, dry buccal mucosa NECK : Supple, no tenderness CHEST : CTA, no tenderness HEART : RRR, no obvious murmurs ABDOMEN: Some distention, epigastric tenderness EXTREMITIES : No LE swelling/tenderness, no other conspicuous deformities noted NEUROLOGIC : Coherent, no facial asymmetry, no other gross focality Discharge Exam Gen: WD/WN, NAD, A&O x3 HEENT: Normocephalic, atraumatic, conjunctivae moist, sclerae anicteric, mucous membranes moist. Lung: Clear to Auscultation bilaterally, no wheezes/rales/rhonchi Heart: Regular rate, regular rhythm, no murmurs, rubs, or gallops Abdomen: Soft, TTP in epigastrum but improved from yesterdays exam, ND +BS x 4 Extremities: No edema Skin: Warm, no rash, negative turgor. Updated Medication List Medication Instructions Recorded Confirmed Type duloxetine 60 mg capsule,delayed 60 mg PO QAM 03/01/19 06/04/24 History release (Cymbalta) fluticasone propionate 50 2 spray intranasal DAILY PRN 08/14/20 06/04/24 History mcg/actuation nasal Allergy Symptoms spray,suspension loratadine 10 mg tablet (Claritin) 10 mg PO QAM PRN Allergic Symptoms 08/14/20 06/04/24 History trazodone 100 mg tablet 100 mg PO HS 06/26/22 06/04/24 History ondansetron 4 mg disintegrating 4 mg PO Q6H PRN nausea and 07/20/23 06/04/24 Rx tablet vomiting #12 tabs buspirone 15 mg tablet 15 mg PO AMHS 05/11/24 06/04/24 History pantoprazole 40 mg tablet,delayed 40 mg PO QAM 05/11/24 06/04/24 History release oxycodone 5 mg tablet 5 mg PO Q4H PRN pain #7 tabs 05/15/24 06/04/24 Rx famotidine 20 mg tablet 20 mg PO HS 06/04/24 06/04/24 History Hospital Stay Data Consultations 06/04/24 20:06 ED Decision to Admit Stat 06/04/24 22:39 Consult Gastroenterology Routine 06/07/24 09:14 Consult General Surgery Routine Diagnostic Imagining Performed Abdomen/Pelvis CT 06/04/24 18:55 HISTORY: Epigastric abdominal pain TECHNIQUE: CT of the abdomen pelvis with contrast. 93 cc of Optiray 320 IV contrast was administered. Images are presented in axial, sagittal, and coronal reformats. COMPARISON: Abdominal MRI dated 05/18/2024. FINDINGS: Mild atelectasis at the lung bases. The liver is unremarkable. The gallbladder is surgically absent. A stent is present extending along the main pancreatic duct into the duodenum. Mild intra and extrahepatic biliary ductal dilation. Common bile duct measuring up to 1.3 cm in diameter on series 300 image 59. The distal common bile duct tapers. No filling defect in the distal common bile duct.7 The spleen and adrenal glands are unremarkable. The pancreatic parenchyma is unremarkable. The kidneys are unremarkable. Distal esophagus and stomach are unremarkable. The pigtail from the pancreatic duct stent is present in the duodenal lumen. The small bowel loops are normal in caliber. A normal caliber appendix is identified in the right pelvis. The colon is normal in caliber. No ascites or pneumoperitoneum. No abdominal aortic aneurysm. There is a retroaortic left renal vein. Urinary bladder is unremarkable. The uterus is absent. Small follicles are functional cysts in the left ovary. The largest measuring up to 2.3 cm. These require no follow-up. No free pelvic fluid. The soft tissues of the body wall are unremarkable. No acute osseous abnormality.Mild IMPRESSION: 1. No acute findings in the abdomen or pelvis. 2. Pancreatic duct stent with pigtail in the duodenal lumen. 3. Postsurgical changes of cholecystectomy. Mild intra and extrahepatic biliary ductal dilation is nonspecific and can be a common incidental finding following cholecystectomy. Common bile duct measuring up to 1.3 cm in diameter and tapers distally. No obstructing stone or mass is visible in the distal common bile duct. Recommend correlation with biliary enzyme levels. 4. Additional chronic and/or incidental findings as detailed above. Electronically signed by Williams Melendez 06-04-2024 7:55 PM Pending Results Patient Have Any Pending Studies at Discharge: No Discharge Instructions Given to Patient (Per Discharging Provider) MEDICATION CHANGES: No medication changes were made. Please continue all your current home medications. SUMMARY OF TEST RESULTS: You were admitted to the hospital due to acute on chronic pancreatitis. Your symptoms improved with bowel rest and IV fluids. We were slowly able to advance your diet and on day of discharge you were tolerating a low fat diet. Your Lipase on day of discharge was 107 U/L. Your magnesium was low and this was replaced via IV magnesium. PENDING TEST RESULTS: None RECOMMENDATIONS FOR FOLLOW-UP: Please follow up with your Primary Care Provider as scheduled. Please keep your scheduled follow up appointment with your Polymer Chemist. It is recommended you follow up with them to discuss your recurrent pancreatitis prior to your stent procedure in July. It is recommended that you ask your primary care provider to be referred to a assistant store manager to help you maintain weight while following low fat diet. They will also be able to help you manage diet with your chronic pancreatitis. OTHER INSTRUCTIONS: Seek medical attention if you have: * temperature above 101 * chest pain or trouble breathing * abdominal pain, nausea, vomiting * diarrhea, dark stools or bloody stools * any unanswered questions or concerns Call 911 if symptoms are severe. Please take good care of yourself. It has been a pleasure taking care of you. Please take care of yourself. If you have any questions regarding your recent hospitalization please contact [facility] and request Alona Luis @ [phone]. Ariadne Eaton PA-C Total Time Total Time Spent Total Time Spent (In Minutes): 35 minutes Supervising Physician Co-Signing Physician Notes Patient is seen and examined at bedside on day of discharge. Abdominal pain mostly resolved. Tolerating regular diet. Offers no new complaints today. On exam patient is moderately built and nourished, no apparent distress, normocephalic atraumatic, EOMI, normal breath sounds, clear to auscultation, S1- S2, no murmur, abdomen soft, nontender, normal bowel sounds, no guarding or rigidity, alert, awake, oriented, grossly no focal deficits. Patient is currently being treated for acute on chronic pancreatitis.H/O pancreatic divisum S/P stent placement last month. Received IV fluids. Tolerated regular diet. Lipase levels trended down. Appreciate GI input. Advised to follow-up with gastroenterology on discharge. Also advised to avoid any alcohol use (patient denies any use). I personally interviewed and examined the patient at bedside. I have reviewed the advanced practitioner's documentation on the date of service referred in note and agree with plan. Patient's care is coordinated with Ariadne Eaton PA-C. Please refer to the documentation above for details of patient's presentation and for discussion of other issues. I spent a total of34 minutes coordinating, documenting, and providing care for this patient excluding time spent in the performance of separately billed services or time spent by another provider/QHP.
== END 2024-06-07 12:06 | disposition home or self-care (01) | DRG 439 ==
LOC: ED 17:50 → SUATTDRO 22:28 → 3W 22:28

== ENCOUNTER 2024-06-15 16:46 | Inpatient (IN) ==
[2024-06-15 18:39] LABS: Basophils # (auto) 0.06 K/uL (0.00-0.20); Basophils % (auto) 0.6 %; Eosinophils # (auto) 0.22 K/uL (0.00-0.50); Eosinophils % (auto) 2.4 %; Hematocrit (blood only) 40.1 % (37.0-47.0); Hemoglobin 13.6 g/dl (12.0-16.0); Immature Granulocytes # (auto) 0.04 K/uL (0.01-0.20); Immature Granulocytes % (auto) 0.4 %; Lymphocytes # (auto) 1.27 K/uL (1.20-3.40); Lymphocytes % (auto) 13.7 %; Mean Corpuscular Hemoglobin 31.5 pg (25.0-34.0); Mean Corpuscular Hgb Conc 33.9 g/dL (32.0-36.0); Mean Corpuscular Volume 92.8 fL (80.0-100.0); Mean Platelet Volume 8.8 fL (9.4-12.4); Monocytes # (auto) 0.56 K/uL (0.11-0.59); Monocytes % (auto) 6.1 %; Neutrophils # (auto) 7.09 K/uL (1.40-6.50); Neutrophils % (auto) 76.8 %; Platelet Count 309 K/uL (130-400); RDW Coefficient of Variation 12.6 % (11.5-14.5); RDW Standard Deviation 42.6 fL (36.4-46.3); Red Blood Count 4.32 M/uL (4.20-5.40); White Blood Count 9.24 K/ul (4.8-10.8)
[2024-06-15 18:55] LABS: Albumin Globulin Ratio 1.9 (0.9-2); Albumin Level 4.7 gm/dl (3.4-5.0); BUN Creatinine Ratio 27.4 (10-20); Bilirubin,Total 0.4 mg/dl (0.2-1.0); Calcium 9.6 mg/dl (8.6-10.3); Creatinine Clr Calc Pharmacy 83.7 ml/min; Globulin 2.5 gm/dl (2.5-4.0); Potassium 4.1 mmol/L (3.5-5.1); Total Protein 7.2 gm/dl (6.0-8.3)
[2024-06-15 19:45] LABS: Appearance Urine Clear (Clear); Bilirubin Urine Negative (Negative); Blood Urine Negative (Negative); Color Urine Yellow; Glucose Urine UA Negative (Negative); Ketones Urine Negative (Negative); Leukocyte Esterase Urine Negative (Negative); Nitrite Urine Negative (Negative); Protein Urine Negative (Negative); Specific Gravity Urine 1.012 (1.000-1.030); Urobilinogen Urine Negative (Negative); pH Urine 6.5 (4.5-7.5)
--- NOTE | 2024-06-15 20:04 | Emergency Department Note ---
History of Present Illness General Chief complaint: GI Assessment Stated complaint: PANCREATITIS PAIN Time Seen by Provider: 06/15/24 19:30 Source: patient Mode of arrival: ambulatory Limitations: no limitations History of Present Illness Maximum Pain Intensity: 5 38y/o F with PMHx significant for pancreatic divisum, chronic idiopathic pancreatitis s/p sphincterotomy and stent placement, allergic rhinitis, fatty liver, GERD s/p failed TIF fundoplication, history of laparoscopic cholecystectomy in July 2020, IBS-C, lumbar spondylosis with radiculopathy, cervical spondylosis with radiculopathy and depression/anxiety with medical marijuana who presents for the to the ED for acute on chronic abdominal pain. Symptoms started yesterday. Pain is currently a 6 out of 10. Located to the epigastric region. Does radiate to her back. Similar to prior episodes of pancreatitis. She is keeping p.o. fluids down at home. She is having nausea without any vomiting. She tried meloxicam and oxycodone at home without relief. No fevers, chills, cough, chest pain, shortness of breath. Denies any change in bowel or bladder habits. Home Medications Medication Instructions Recorded Confirmed Type duloxetine 60 mg capsule,delayed 60 mg PO QAM 03/01/19 06/04/24 History release (Cymbalta) fluticasone propionate 50 2 spray intranasal DAILY PRN 08/14/20 06/04/24 History mcg/actuation nasal Allergy Symptoms spray,suspension loratadine 10 mg tablet (Claritin) 10 mg PO QAM PRN Allergic Symptoms 08/14/20 06/04/24 History trazodone 100 mg tablet 100 mg PO HS 06/26/22 06/04/24 History ondansetron 4 mg disintegrating 4 mg PO Q6H PRN nausea and 07/20/23 06/04/24 Rx tablet vomiting #12 tabs buspirone 15 mg tablet 15 mg PO AMHS 05/11/24 06/04/24 History pantoprazole 40 mg tablet,delayed 40 mg PO QAM 05/11/24 06/04/24 History release oxycodone 5 mg tablet 5 mg PO Q4H PRN pain #7 tabs 05/15/24 06/04/24 Rx famotidine 20 mg tablet 20 mg PO HS 06/04/24 06/04/24 History Allergies Allergy/AdvReac Type Severity Reaction Status Date / Time clindamycin Allergy Intermediate muscle Verified 06/04/24 20:11 aches/metal taste in mouth Penicillins Allergy Unknown UNKNOWN, Verified 06/04/24 20:11 CHILD ALLERGY doxycycline AdvReac Mild Metallic Verified 06/04/24 20:11 Taste Past Med/Surg History Problem List (Updated 06/15/24 @ 20:08 by Tone Alicia MD) Acute pancreatitis (Acute) Irritable bowel syndrome with constipation Elevated lipase (Acute) Acute on chronic pancreatitis (Acute) Abdominal pain (Acute) Pancreatitis (Acute) Pancreatic divisum Post-ERCP acute pancreatitis Leukocytosis (Acute) Pancreatitis (Acute) Abdominal pain (Acute) Enteritis (Acute) Pancreatitis (Acute) Epigastric abdominal pain (Acute) GERD (gastroesophageal reflux disease) Medical marijuana use Abdominal pain, acute (Acute) Acute pancreatitis (Acute) Pain at surgical site H/O umbilical hernia repair (02/20/21) Open Umbilical Hernia Repair- Al Lizama DO, FACS 02/20/2021 Obesity (BMI 30.0-34.9) Hx laparoscopic cholecystectomy 08/22/2020 Dr. Garvin Umbilical hernia Anemia Allergic rhinitis Endometriosis (Chronic) Chronic pelvic pain in female S/P laparoscopic hysterectomy S/P unilateral salpingo-oophorectomy Encounter for pre-operative examination Medical History History of stomach ulcers Depression Anxiety Surgical History History of colonoscopy History of hysterectomy with unilateral oophorectomy d/t endometriosis (right removed) History of bilateral tubal ligation History of dilatation and curettage History of esophagogastroduodenoscopy (EGD) History of tooth extraction Family History Mother Family history of reaction to anesthesia SLOW TO WAKE UP Diabetes Lung cancer Father Cerebral aneurysm Social History Smoking Status: Former smoker Second Hand Exposure: No; Do You Dip or Chew Tobacco: No; Hx Alcohol Use: No Hx Substance Use: No Preferred Language: French Communication Ability: Effective 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 Physical Exam Vital Signs Vital Signs - 24 hr 06/15/24 16:57 06/15/24 19:48 Temperature 36.8 C 36.7 C Temperature Source Oral Oral Pulse Rate 105 H Pulse Rate [Finger] 66 Pulse Rhythm Regular Pulse Strength Normal Respiratory Rate 18 17 Respiratory Effort / Characteristics Non-Labored Spontaneous Non-Labored Spontaneous Respiratory Depth Normal Normal Respiratory Pattern Regular Regular Blood Pressure 124/84 Blood Pressure [Right Arm] 121/74 Blood Pressure Mean 97 Blood Pressure Mean [Right Arm] 89 Blood Pressure Position Sitting Pulse Oximetry 97 100 Oxygen Delivery Method Room Air Room Air Sepsis Recent Fever Within 48 Hours No Sepsis New/Unexplained Change in Mental Status N/A Sepsis Action Taken by Nursing No Action Required See below Constitutional WD/WN, vitals as above Respiratory normal respiratory effort, lungs clear to auscultation Cardiovascular RRR, no murmur, no edema Gastrointestinal (Abdomen) Soft, nondistended, no mass, no rigidity or peritoneal signs, tenderness to palpation of the epigastric region with voluntary guarding Skin no rashes, warm and dry Medical Decision Making Differential Diagnosis Acute on chronic pancreatitis Medical Records Attestation: I reviewed the patient's medical records. Home Medications Current Medication List: was personally reviewed by me Laboratory Data Attestation: I reviewed the patient's lab results. 06/15/24 18:13 06/15/24 18:13 Lab Results 06/15/24 06/15/24 Range/Units 18:13 19:37 WBC 9.24 (4.8-10.8) K/ul RBC 4.32 (4.20-5.40) M/uL Hgb 13.6 (12.0-16.0) g/dl Hct 40.1 (37.0-47.0) % MCV 92.8 (80.0-100.0) fL MCH 31.5 (25.0-34.0) pg MCHC 33.9 (32.0-36.0) g/dL RDW Std Deviation 42.6 (36.4-46.3) fL RDW Coeff of Leopoldo 12.6 (11.5-14.5) % Plt Count 309 (130-400) K/uL MPV 8.8 L (9.4-12.4) fL Immature Gran % (Auto) 0.4 % Neut % (Auto) 76.8 % Lymph % (Auto) 13.7 % [place] % (Auto) 6.1 % Eos % (Auto) 2.4 % Baso % (Auto) 0.6 % Neut # (Auto) 7.09 H (1.40-6.50) K/uL Lymph # (Auto) 1.27 (1.20-3.40) K/uL [place] # (Auto) 0.56 (0.11-0.59) K/uL Eos # (Auto) 0.22 (0.00-0.50) K/uL Baso # (Auto) 0.06 (0.00-0.20) K/uL Immature Gran # (Auto) 0.04 (0.01-0.20) K/uL Sodium 137 (136-145) mmol/L Potassium 4.1 (3.5-5.1) mmol/L Chloride 102 (98-107) mmol/L Carbon Dioxide 31 (21-32) mmol/L Anion Gap 4 (3-11) BUN 23 (6-23) mg/dl Creatinine 0.84 (0.6-1.2) mg/dl Est Cr Clr Drug Dosing 83.7 ml/min eGFR 90.60 BUN/Creatinine Ratio 27.4 H (10-20) Glucose 93 (70-99(Fasting)) mg/dl Calcium 9.6 (8.6-10.3) mg/dl Total Bilirubin 0.4 (0.2-1.0) mg/dl AST 23 (13-39) U/L ALT 39 (7-52) U/L Alkaline Phosphatase 78 (34-104) U/L Total Protein 7.2 (6.0-8.3) gm/dl Albumin 4.7 (3.4-5.0) gm/dl Globulin 2.5 (2.5-4.0) gm/dl Albumin/Globulin Ratio 1.9 (0.9-2) Lipase 440 H (11-82) U/L Urine Color Yellow Urine Appearance Clear (Clear) Urine pH 6.5 (4.5-7.5) Ur Specific [place] 1.012 (1.000-1.030) Urine Protein Negative (Negative) Urine Glucose (UA) Negative (Negative) Urine Ketones Negative (Negative) Urine Blood Negative (Negative) Urine Nitrite Negative (Negative) Urine Bilirubin Negative (Negative) Urine Urobilinogen Negative (Negative) Ur Leukocyte Esterase Negative (Negative) Blood Pressure Blood Pressure Findings: Normal blood pressure MDM Narrative Patient is a 38-year-old female with history as seen above who presents with acute on chronic abdominal pain. Located in the epigastric region consistent with prior pancreatitis flares. Lipase of 440 here today. This is elevated from her discharge lipase 8 days prior. Nonperitoneal abdominal exam. She had a nonconcerning CT less than 10 days prior. No indication to repeat based on clinical picture of pancreatitis. IV fluids and pain medication were given. Patient on patient's prior course of disease we will plan to admit for bowel rest and pain control. [facility]. Impression & Plan Acute pancreatitis Discharge Plan Visit Data Chief Complaint: GI Assessment Stated Complaint: PANCREATITIS PAIN ED Provider: Tone Alicia Discharge Problem: Acute pancreatitis Forms Stand Alone Forms: My [facility] Mpax Prescriptions Prescriptions: No Action duloxetine [Cymbalta] 60 mg Capsule,Delayed Release(Dr/Ec) 60 mg PO QAM trazodone 100 mg tablet 100 mg PO HS fluticasone propionate 50 mcg/actuation [place],Suspension 2 spray INTRANASAL DAILY PRN (Reason: Allergy Symptoms) Rx Instructions: as needed loratadine [Claritin] 10 mg Tablet 10 mg PO QAM PRN (Reason: Allergic Symptoms) buspirone 15 mg tablet 15 mg PO AMHS pantoprazole 40 mg tablet,delayed release (DR/EC) 40 mg PO QAM oxycodone 5 mg Tablet 5 mg PO Q4H PRN (Reason: pain) Qty: 7 0RF ondansetron 4 mg tablet,disintegrating 4 mg PO Q6H PRN (Reason: nausea and vomiting) Qty: 12 0RF famotidine 20 mg Tablet 20 mg PO HS Referrals Referrals: Williams Hauser MD [Primary Care Provider] -
[2024-06-15] MEDS: D5W AND NSS 1,000 ML IV ONE (20:10)
[2024-06-15] MEDS: KETOROLAC TROMETHAMINE 15 MG/ML VIAL IV ONE (20:11)
[2024-06-15] MEDS: HYDROmorphone INJ 1 MG/ML SYRINGE IV STA (20:11)
[2024-06-15] MEDS ORDERED: ACETAMINOPHEN 325 MG TAB PO PRN (20:13)
[2024-06-15] MEDS ORDERED: ACETAMINOPHEN 500 MG TAB PO PRN (20:15)
[2024-06-15] MEDS: LACTATED RINGER'S 1,000 ML IV ONE (20:28)
--- NOTE | 2024-06-15 20:34 | History & Physical Report ---
Date of Service June 15, 2024 Assessment & Plan (1) Acute on chronic pancreatitis: (2) Pancreatic divisum: (3) Post-ERCP acute pancreatitis: (4) Irritable bowel syndrome with constipation: (5) Anxiety: (6) Depression: (7) GERD (gastroesophageal reflux disease): Plan: HPI, ROS, PE completed by Jacki Sanches PA-C Assessment and Plan per Dr Chu. See addendum. History of Present Illness Chief Complaint: abdominal pain Primary Care Provider: Williams Hauser MD Patient is a 38-year-old female with PMH recurrent pancreatitis, pancreatic divisum, history ERCP with pancreatic stent placement on 05/10/[address] Garcia, IBS, fatty liver, depression, anxiety, medical marijuana use presented to ER with complaint of abdominal pain x 1 day. Per inpatient chart review patient with multiple admissions in the past month for pancreatitis that occurred after ERCP and pancreatic stent placement. Most recent hospital admission on 06/04/2024-06/07/2024 for acute on chronic pancreatitis. 05/17/2024 hospitalization there was concern for possible necrotizing pancreatitis on MRCP and patient was transferred to [facility] and did not require further surgical intervention. During these hospitalizations patient has been managed conservatively with bowel rest, IV fluids and pain control. Upon discharge on 06/07/2024 patient was tolerating oral diet and her lipase had improved to 107 from 393 on admission. Patient reports was doing well. She has been taking meloxicam twice a day. Last night started with epigastric pain radiating to back after eating. She reports this pain feels like her prior episodes of pancreatitis. Stopped eating and has been attempting to push fluids. Having nausea. Denies any vomiting. Reports took oxycodone for breakthrough pain without relief. Denies noted fever but has been feeling chilled. Had loose BM this morning. [facility]. Yesterday she was prescribed Creon 2 capsules 3 times daily with meals and 1 capsule with snacks, however states pharmacy did not have in stock so has not started it yet. Denies HAMM, dizziness, neck pain, CP, SOB, cough, sore throat, rhinorrhea, extremity edema, rashes, urinary symptoms. Allergies Allergy/AdvReac Type Severity Reaction Status Date / Time clindamycin Allergy Intermediate muscle Verified 06/04/24 20:11 aches/metal taste in mouth Penicillins Allergy Unknown UNKNOWN, Verified 06/04/24 20:11 CHILD ALLERGY doxycycline AdvReac Mild Metallic Verified 06/04/24 20:11 Taste Home Medications Medication Instructions Recorded Confirmed Type duloxetine 60 mg capsule,delayed 60 mg PO QAM 03/01/19 06/15/24 History release (Cymbalta) fluticasone propionate 50 2 spray intranasal DAILY PRN 08/14/20 06/15/24 History mcg/actuation nasal Allergy Symptoms spray,suspension loratadine 10 mg tablet (Claritin) 10 mg PO QAM PRN Allergic Symptoms 08/14/20 06/15/24 History trazodone 100 mg tablet 100 mg PO HS 06/26/22 06/15/24 History ondansetron 4 mg disintegrating 4 mg PO Q6H PRN nausea and 07/20/23 06/15/24 Rx tablet vomiting #12 tabs buspirone 15 mg tablet 15 mg PO AMHS 05/11/24 06/15/24 History pantoprazole 40 mg tablet,delayed 40 mg PO QAM 05/11/24 06/15/24 History release oxycodone 5 mg tablet 5 mg PO Q4H PRN pain #7 tabs 05/15/24 06/15/24 Rx famotidine 20 mg tablet 20 mg PO HS 06/04/24 06/15/24 History lxxaus-dmqenkbc-mixrbun 2 cap PO .SEE COMPLEX 06/15/24 06/15/24 History 24,000-76,000-120,000 unit capsule,delayed rel (Creon) meloxicam 7.5 mg tablet 7.5 mg PO BID PRN Pain 06/15/24 06/15/24 History Past Med/Surg History Problem List Acute pancreatitis (Acute) Irritable bowel syndrome with constipation Elevated lipase (Acute) Acute on chronic pancreatitis (Acute) Abdominal pain (Acute) Pancreatitis (Acute) Pancreatic divisum Post-ERCP acute pancreatitis Leukocytosis (Acute) Pancreatitis (Acute) Abdominal pain (Acute) Enteritis (Acute) Pancreatitis (Acute) Epigastric abdominal pain (Acute) GERD (gastroesophageal reflux disease) Medical marijuana use Abdominal pain, acute (Acute) Acute pancreatitis (Acute) Pain at surgical site H/O umbilical hernia repair (02/20/21) Open Umbilical Hernia Repair- Al Lizama, , FACS 02/20/2021 Obesity (BMI 30.0-34.9) Hx laparoscopic cholecystectomy 08/22/2020 Dr. Garvin Umbilical hernia Anemia Allergic rhinitis Endometriosis (Chronic) Chronic pelvic pain in female S/P laparoscopic hysterectomy S/P unilateral salpingo-oophorectomy Encounter for pre-operative examination Medical History History of stomach ulcers Depression Anxiety Surgical History History of colonoscopy History of hysterectomy with unilateral oophorectomy d/t endometriosis (right removed) History of bilateral tubal ligation History of dilatation and curettage History of esophagogastroduodenoscopy (EGD) History of tooth extraction Family History Mother Family history of reaction to anesthesia SLOW TO WAKE UP Diabetes Lung cancer Father Cerebral aneurysm Social History Smoking Status: Never smoker Second Hand Exposure: No; Do You Dip or Chew Tobacco: No; Hx Alcohol Use: No Hx Substance Use: Yes Last Used Substance: Hours (ago) Substance Use Type Other:: Medical Marijuana Preferred Language: Fijian Communication Ability: Effective Wire Communications 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: No Beliefs That Will Affect Care: None marital status: Single Current Living Situation: Spouse Current Living Situation Comment: Lives with fiance and DAUGHTER current occupational status: unemployed and disabled current occupation: HAS NOT WORKED 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 How many Children do You have: 2 Other Information That Helps Us Care for You: No Feels Safe at Home: Yes Safety Concerns: Feels Safe At This Time during the past year weight has: decreased > 10 lbs Assistive Devices: None Review of Systems Review of Systems: All systems reviewed & are unremarkable except as noted in HPI & below Physical Exam Physical Exam: General: no distress, WDWN Head: normocephalic, atraumatic Eyes: conjunctiva non-injected, anicteric ENT: normal inspection external ears, nose, mucous membranes moist Neck: supple, trachea midline, non-tender Lungs: clear, no respiratory distress, no wheezing/rhonchi/rales CV: RRR, no murmur, no pretibial edema Abd: normal BS, soft, +tender to palpation epigastric region Ext: no cyanosis, no calf tenderness Neuro: A&O x 3, no focal deficits noted, normal affect Skin: warm, dry Results & Data Results & Data Vital Signs (Past 12 Hours) Vital Signs Temp Pulse Pulse Resp BP BP Pulse Ox 06/15/24 19:48 36.7 C 66 17 121/74 100 06/15/24 16:57 36.8 C 105 H 18 124/84 97 O2 Del Method 06/15/24 19:48 Room Air 06/15/24 16:57 Room Air Laboratory Results Short CBC 06/15/24 Range/Units 18:13 WBC 9.24 (4.8-10.8) K/ul Hgb 13.6 (12.0-16.0) g/dl Hct 40.1 (37.0-47.0) % Plt Count 309 (130-400) K/uL BMP 06/15/24 18:13 Sodium 137 Potassium 4.1 Chloride 102 Carbon Dioxide 31 BUN 23 Creatinine 0.84 Glucose 93 Calcium 9.6 Liver Function 06/15/24 Range/Units 18:13 Total Bilirubin 0.4 (0.2-1.0) mg/dl AST 23 (13-39) U/L ALT 39 (7-52) U/L Alkaline Phosphatase 78 (34-104) U/L Albumin 4.7 (3.4-5.0) gm/dl Urine 06/15/24 Range/Units 19:37 Urine Color Yellow Urine Appearance Clear (Clear) Urine pH 6.5 (4.5-7.5) Ur Specific [place] 1.012 (1.000-1.030) Urine Protein Negative (Negative) Urine Glucose (UA) Negative (Negative) Supervising Physician Co-Signing Physician Notes IM ATTENDING : Patient seen and examined. History obtained from patient and records. Concur with salient points upon review of preceding documentation by Ms. Jacki Sanches PA-C. I take responsibility for plan of care below. FINAL ASSESSMENT AND PLAN as follows : Recurrent pancreatitis History of pancreatic divisum History of stent placement hx NAFLD GERD status post surgery anxiety/mood disorder stable past tobacco abuse Admit to medical unit Analgesia, IVF, clear liquids GI consult re: recurrent pancreatitis DVT prophylaxis. Lovenox subcu Full code I spent a total of 20 minutes coordinating, documenting, and providing care for this patientexcludingtime spent by another provider/QHP. Text document was generated using [employer] voice recognition software. It may contain grammatical or spelling errors. Kindly contact undersigned for clarification of any documentation item in question. (6) Depression Depression Type: unspecified Qualified Code(s): F32.A - Depression, unspecified (7) GERD (gastroesophageal reflux disease) Esophagitis presence: without esophagitis Qualified Code(s): K21.9 - Gastro- esophageal reflux disease without esophagitis
[2024-06-15] MEDS ORDERED: LORazepam 0.5 MG TAB PO PRN (20:56)
[2024-06-15] MEDS ORDERED: FLUTICASONE PROPIONATE NA SPR 16 GM BTL PRN (20:57)
[2024-06-15] MEDS ORDERED: LORATADINE 10 MG TAB PO PRN (20:57)
[2024-06-15] MEDS: FAMOTIDINE 20 MG TAB PO SCH (21:46)
[2024-06-15] MEDS: traZODone HCL 100 MG TAB PO SCH (21:46)
[2024-06-15] MEDS: busPIRone 15 MG TAB PO SCH (21:46)
[2024-06-15] MEDS: oxyCODONE HCL IR 5 MG TAB (IMMEDIATE RELEASE) PO PRN (23:07)
[2024-06-16] MEDS: LACTATED RINGER'S 1,000 ML IV SCH (01:42)
[2024-06-16] MEDS: KETOROLAC TROMETHAMINE 15 MG/ML VIAL IV PRN (03:46)
[2024-06-16] MEDS: PROMETHAZINE 6.25 MG/50.25 ML BAG IV PRN (03:52)
--- OUTSIDE RECORDS SUMMARY | 2024-06-16 05:15 | External Medical Summary | Summary of Care ---
Author Name Unknown Organization [facility] Address [address] [place] [address] Phone [phone] Care Team Providers Care Incident Handler Name Role Phone Murtaza BENTON MD, Williams Payton Primary Care Provider [phone] Reason for Visit * Reason Comments Outpatient Testing Encounter Details Date Type Department Care Team (Late st Contact Info) Description 06/10/2024 10:50 AM EDT Laboratory Laboratory [facility] [address] [place] [address] [place], [address] [place] [address] Acute on chronic pancreatitis (HCC) Allergies Active Allergy Reactions Criticality Noted Date Comments Clindamycin Other (Please comment) 12/21/2014 Burned taste Muscle pain Doxycycline Low 08/22/2020 Other reaction(s): Metallic Taste Penicillins Unknown 10/07/2007 As a child Other reaction(s): UNKNOWN, CHILD ALLERGY documented as of this encounter (statuses as of 06/10/2024) Medications NATURAL SUPPLEMENT Take by mouth daily. Medical marijuana Active Loratadine 10 MG Oral Tablet Take 1 Tablet by mouth in the morning. Active Fluticasone Propionate 50 MCG/ACT Nasal Suspension Administer 1 Scott into nostril in the morning. Active Ondansetron HCl 4 MG Oral Tablet (Zofran)Indication s:Nausea and vomiting, intractability of vomiting not specified, unspecified vomiting type Take 1 Tablet by mouth every 6 hours as needed for Nausea. 30 Tablet 1 Active DULoxetine HCl 60 MG Oral Capsule [...] the morning. 30 Tablet 5 5 Active busPIRone HCl 15 MG Oral Tablet (Buspar) TAKE 1 TABLET BY MOUTH EVERY MORNING AND 1 TAB AT BEDTIME 180 Tablet 2 5 Active Famotidine 20 MG Oral Tablet (Pepcid) Take 1 Tablet by mouth at bedtime. 30 Tablet 2 5 Active Meloxicam 7.5 MG Oral Tablet (Mobic) Take 1 Tablet by mouth in the morning and 1 Tablet before bedtime. for pain.. 30 Tablet 5 5 Active Acetaminophen ER 650 MG Oral Tablet Extended Release (Tylenol 8 Hour Arthritis Pain) Take 2 Tablets by mouth in the morning and 2 Tablets before bedtime. 100 Tablet 3 5 Active oxyCODONE HCl 5 MG Oral Tablet (Oxy IR) Take 1 Tablet by mouth every 6 hours as needed for Pain, Moderate or Pain, Severe. 20 Tablet 5 Active documented as of this encounter (statuses as of 06/10/2024) Active Problems Problem Noted Date Diagnosed Date [...] as of this encounter (statuses as of 06/10/2024) Resolved Problems Problem Noted Date Diagnosed Date [...] as of this encounter (statuses as of 06/10/2024) Immunizations Name Administration Dates Next Due HPV [...] Answer Date Recorded PHQ Adult Total Score 1 06/01/2024 Hunger Vital Sign Answer Date Recorded Within the past 12 months, y ou worried that your food would run out before you got the money to buy more. Never true 06/02/19 25 Within the past 12 months, t he food you bought just didn't last and you didn't have money to get more. Never true 06/01/2024 Childcare Answer Date Recorded Do you feel overwhelmed with taking care of a child, family member or friend? No 06/01/2024 Does your family need help f inding childcare? (Household - for ages 0-17 years) Not on file 06/01/2024 Clothing Answer Date Recorded Have you been unable to get clothing when it was really needed? No 06/01/2024 Is your family able to get c lothes or diapers when needed? (Household - for ages 0-17 years) Not on file 06/01/2024 Personal Safety Answer Date Recorded Do you feel unsafe or have concerns for your saf ety? No 06/01/2024 Do you have concerns for you r family's safety? (Household - for ages 0-17 years) Not on file 06/01/2024 Utilities Answer Date Recorded Do you have trouble paying y our heating, water, or electric bill? No 06/01/2024 Is your family able to pay t he heat, water, or electric bill? (Household - for ages 0-17 years) Not on file 06/01/2024 Does your family have access to good internet? (Household - for ages 0-17 years) Not on file 06/01/2024 Employment Status Answer Date Recorded Are you unemployed or without regular income? No 06/01/2024 Does the household have a re gular source of income? (Household - for ages 0-17 years) Not on file 06/01/2024 Social Connections Answer Date Recorded How often do you feel lonely or isolated from th ose around you? Never 06/01/2024 Financial Resource Strain Answer Date R ecorded Do you have any trouble payi ng for your medications, or do you think you might in the future? No 06/01/2024 Does your family have troubl e paying for medicine? (Household - for ages 0-17 years) Not on file 06/01/2024 Transportation Needs Answer Date Record ed Do you have trouble getting a ride to medical visits or work? (Adult - for ages 18 years and over) Not on file 06/01/2024 Does your family have a hard time getting a ride to doctors visits? (Household - for ages 0-17 years) Not on file 06/01/2024 Has lack of transportation k ept you from medical appointments, meetings, work, or from getting things needed for daily living? Check all that apply. No 06/01/2024 Do you (or your family) have trouble finding or paying for a ride (transportation)? (Household - for ages 0-17 years) Not on file 06/01/2024 Housing Stability Answer Date Recorded Do you currently live in a s helter or have no steady place to sleep at night? No 06/01/2024 Do you think you are at risk of becoming homeless? (Adult - for ages 18 years and over) Not on file 06/01/2024 Does your family worry about paying for your home or becoming homeless? (Household - for ages 0-17 years) Not on file 0 06/01/2024 Are you homeless or worried that you might be in the future? No 06/01/2024 Are you (or your family) citlaly eless [...] the money to buy more. Never true 06/02/19 25 Within the past 12 months, t he food you bought just didn't last and you didn't have money to get more. Never true 06/01/2024 Do you need food for this week? No 06/01/2024 Comments No Sex and Gender Information Value [...] Author No 05/18/2024 3:18 PM Davis Ogden ae RN * Do you have serious difficulty [...] Department Care Team (Latest Contact Info) Description 06/17/2024 1:30 PM EDT Office Visit Gastroenterolog y, [facility] [address] [place] [address] Cammie Zapata PA-C [address] [place] [address] 06/21/2024 11:00 AM EDT Telemedicine [facility] [address] [place] [address] Diane Lyons, GUSTAVO [address] [place], [place] [address] 08/18/2024 8:00 AM EDT Hospital Encounter ENDO [facility], Endoscopy Room [facility] [address] [place] [phone] Ellie Garcia MD [address] [place] [address] 08/18/2024 8:00 AM EDT - 08/18/2024 8:45 AM EDT Surgery ENDO [facility], Endoscopy Room [facility] [address] [place] [phone] Ellie Garcia MD [address] [place] [address] ENDOSCOPIC RETROGRADE CHOLANGIOPANCREATOGRAPHY (ERCP) DIAGNOSTIC 11/04/2024 8:40 AM EDT Office Visit [facility] [address] [place], [place] [address] Williams Hauser III, MD [address] [facility] [place] [address] Pending Results Name Type Priority Associated Diagnoses Date /Time LIPASE Lab Routine Acute on chronic pancreatitis (HCC) 06/10/2024 10:49 AM EDT Scheduled Procedures Name Priority Associated Diagnoses Date/Ti [...] (FLU shot) (#1) 2023 01/26/2019 Depression Monitoring 06/01/2025 06/01/2024, 025 Diabetes Screening 06/11/2027 06/10/2024, 0 05/28/2024, 05/20/2024, Additional history exists DTap/Tdap Vaccines (8 - [...] this encounter Medical Devices Implanted Type Area Carpenter Supervisor Wooden Ship Device Identifier Shelf Expiration Date Model / Serial / Lot Cartridge Esophyx Z+ - [id number] Implanted:Qty: 1 on 04/28/2019 by Ellie Garcia MD at OR [facility] [employer] 11/03/2020 [id number] / / [id number] Description:fasteners 10@11, 10@1, 4@5, 4@7 placed at GE junction (code 0278) Stent Panc Sgl Pigtail [id number] - [id number] Implanted:Qty: 1 on 05/10/2024 by Ellie Garcia MD at ENDOSCOPY [facility] N/A: Stomach COOK : IMELDA MAYO 09/29/2025 [id number] / / [id number] documented as of this encounter Procedures Procedure Name Priority Date/Time Associated Diagnosis Comments COMPREHENSIVE METABOLIC PANEL Routine 06/10/2024 10:49 AM EDT Acute on chronic pancreatitis (HCC) MAGNESIUM Routine 06/10/2024 10:49 AM EDT Acute on chronic pancreatitis (HCC) documented in this encounter Results * COMPREHENSIVE METABOLIC PANEL (06/10/2024 10:49 AM EDT) BUN 14 6 - 20 mg/dL 06/10/2024 12:12 PM EDT [facility] 5602 CREATININE 0.9 0.5 - 1.0 mg/dL 06/10/2024 12:12 PM EDT [facility] 56 EGFR 79 >=60 mL/min 06/10/2024 12:12 PM EDT [facility] 56 Comment:eGFR is calculated b ased on the CKD-EPI 2020 equation. SODIUM 140 135 - 146 mmol/L 06/10/2024 12:12 PM EDT [facility] 56 POTASSIUM 4.5 3.5 - 5.1 mmol/L 06/10/2024 12:12 PM EDT [facility] 56 CHLORIDE 101 98 - 107 mmol/L 06/10/2024 12:12 PM EDT [facility] 56 CO2 29 22 - 32 mmol/L 06/10/2024 12:12 PM EDT [facility] 56 ANION GAP 10 7 - 15 mmol/L 06/10/2024 12:12 PM EDT [facility] 56 GLUCOSE 94 70 - 120 mg/dL 06/10/2024 12:12 PM EDT [facility] 56- Albumin 4.7 3.8 - 5.0 g/dL 06/10/2024 12:12 PM EDT [facility] 56 AST 22 10 - 35 U/L 06/10/2024 12:12 PM EDT [facility] 56 Alkaline Phosphatase 90 35 - 130 U/L 06/10/2024 12:12 PM EDT [facility] 5602 Bilirubin, Total 0.3 <=1.2 mg/dL 06/10/2024 12:12 PM EDT [facility] 56- CALCIUM 10.0 8.4 - 10.2 mg/dL 06/10/2024 12:12 PM EDT [facility] 56-02 Protein 7.1 6.0 - 8.3 g/dL 06/10/2024 12:12 PM EDT [facility] ALT 28 10 - 35 U/L 06/10/2024 12:12 PM EDT [facility] Blood Venous blood specimen / Unknown Venipuncture / Unknown 06/10/2024 10:49 AM EDT 06/10/2024 10:49 AM EDT us Williams Hauser III, MD LAB BLOOD ORDERABLES Final Result Performing Organization Address City/[facility]/ZIP Co de Phone Number [facility] [address] [place] [address] * MAGNESIUM (06/10/2024 10:49 AM EDT) Pathologist [facility] Magnesium 2.1 1.5 - 2.6 mg/dL 06/10/2024 12:12 PM EDT [facility] Blood Venous blood specimen / Unknown Venipuncture / Unknown 06/10/2024 10:49 AM EDT 06/10/2024 10:49 AM EDT Williams Hauser III, MD LAB BLOOD ORDERABLES Final Result Performing Organization Address City/[facility] Co de Phone Number [facility] [address] [place] [address] documented in this encounter Visit Diagnoses Diagnosis Acute on chronic pancreatitis (HCC) Chronic recurrent pancreatitis (HCC) Chronic pancreatitis documented in this encounter Advance Directives * Full Code (Latest Code Status on File) Date Activated Date Inactivated Comments 05/18/2024 3:33 PM 05/21/2024 5:10 PM This order r eflects the patients wishes and were consensually agreed upon. Question Answer Comments Discussion of Advance Directives occurred with: Patient Healthcare Agents on File Name Relationship Healthcare Agent Relationshi p Communication Jimi Hidalgo Significant Other Health Care Re presentative (appointed verbally by patient or by statute hierarchy) Care Teams Incident Handler Relationship Specialty Start Date End Date Williams Hauser III, MD [address] [place] [address] PCP - General Family Medicine 10/27/22 documented as of this encounter
--- OUTSIDE RECORDS SUMMARY | 2024-06-16 05:15 | External Medical Summary | Summary of Care ---
Author Name Unknown Organization [facility] Address [address] [place] [address] Phone [phone] Care Team Providers Care Prototype Fabricator Name Role Phone Murtaza BENTON MD, Williams Payton Primary Care Provider [phone] Reason for Visit * Reason Onset Date Comments Referral 06/08/2024 vaccinator Encounter Details Date Type Department Care Team (Late st Contact Info) Description 06/08/2024 Telephone Family Practice [facility] [place] [address] [place] [address] Williams Hauser III, MD [address] [place] [address] Referral (vaccinator) Allergies Active Allergy Reactions Criticality Noted Date Comments Clindamycin Other (Please comment) 12/21/2014 Burned taste Muscle pain Doxycycline Low 08/22/2020 Other reaction(s): Metallic Taste Penicillins Unknown 10/07/2007 As a child Other reaction(s): UNKNOWN, CHILD ALLERGY documented as of this encounter (statuses as of 06/09/2024) Medications NATURAL SUPPLEMENT Take by mouth daily. Medical marijuana Active Loratadine 10 MG Oral Tablet Take 1 Tablet by mouth in the morning. Active Fluticasone Propionate 50 MCG/ACT Nasal Suspension Administer 1 [place] into nostril in the morning. Active Ondansetron [...] as of this encounter (statuses as of 06/09/2024) Active Problems Problem Noted Date Diagnosed Date [...] as of this encounter (statuses as of 06/09/2024) Resolved Problems Problem Noted Date Diagnosed Date [...] as of this encounter (statuses as of 06/09/2024) Immunizations Name Administration Dates Next Due DTP [...] 3:18 PM Davis Ogden ae RN * Are you blind or do you have serious difficulty seeing, even when wearing glasses? Answer Date of Assessment Author No 05/18/2024 3:18 PM Davis Ogden ae RN * Do you have serious difficulty walking or climbing stairs? (5 years old or older) Answer Date of Assessment Author No 05/18/2024 3:18 PM Davis Ogden ae RN * Do you have difficulty dressing or bathing? (5 years old or older) Answer Date of Assessment Author No 05/18/2024 3:18 PM Davis Ogden ae RN * Because of a physical, mental, or emotional condition, do you have difficulty doing errands alone such as visiting a doctors office or shopping? (15 years old or older) Answer Date of Assessment Author No 05/18/2024 3:18 PM Davis Ogden ae RN documented as of this encounter Mental Status * Because of a physical, mental, or emotional condition, do you have serious difficulty concentrating, remembering, or making decisions? (5 years old or older) Answer Entry Date Author No 05/18/2024 3:18 PM Davis Ogden ae RN documented in this encounter Miscellaneous Notes * Telephone Encounter - Christine Stoddard OSA - 06/09/2024 10:56 AM EDT Pt scheduled 06/21/24 with Nutrition * Telephone Encounter - Bev Calles RN - 06/08/2024 2:38 PM EDT New referral for vaccinator. Patient has issues eating, she has lost ~10lbs due to poor appetite. History of chronic pancreatitis related to pancreatic divisum. documented in this encounter Plan of Treatment Upcoming Encounters Date Type Department Care Team (Latest Contact Info) Description 06/13/2024 11:00 AM EDT Office Visit Family Practice [facility] [address] [facility] [place], [place] [address] Williams Hauser III, MD [address] [place] [address] 06/21/2024 11:00 AM EDT Telemedicine Nutrition, [facility] [address] [place] [address] Diane Lyons RDN [address] [place] [address] 08/18/2024 8:00 AM EDT Hospital Encounter ENDO [facility], Endoscopy Room [facility] [address] [place] [phone] Ellie Garcia MD [address] [place] [address] 08/18/2024 8:00 AM EDT - 08/18/2024 8:45 AM EDT Surgery ENDO [facility], Endoscopy Room [facility] [address] [place] [phone] Ellie Garcia MD [address] [place] [address] ENDOSCOPIC RETROGRADE CHOLANGIOPANCREATOGRAPHY (ERCP) DIAGNOSTIC 08/30/2024 11:00 AM EDT Office Visit Gastroenterology , [facility] [address] [place] [address] Myranda Mckeon CRNP [address] [place] [address] 11/04/2024 8:40 AM EDT Office Visit [facility] [address] [facility] [place] [address] Williams Hauser III, MD [address] [place] [address] Scheduled Procedures Name Priority Associated Diagnoses Date/Ti [...] Depression Monitoring 06/01/2025 06/01/2024, 025 Diabetes Screening 05/29/2027 05/28/2024, 0 05/20/2024, 05/19/2024, [...] this encounter Medical Devices Implanted Type Area Sales Receptionist Device Identifier Shelf Expiration Date Model / Serial / Lot Cartridge Esophyx Z+ - [id number] Implanted:Qty: 1 on 04/28/2019 by Ellie Garcia MD at OR [facility] [employer] 11/03/2020 [id number] / / [id number] Description:fasteners 10@11, 10@1, 4@5, 4@7 placed at GE junction (code 0278) Stent Panc Sgl Pigtail 3api6mg - [id number] Implanted:Qty: 1 on 05/10/2024 by Ellie Garcia MD at ENDOSCOPY [facility] N/A: Stomach COOK : IMELDA MAYO 09/29/2025 [id number] / / [id number] documented as of this encounter Advance Directives [...] patient or by statute hierarchy) Care Teams Prototype Fabricator Relationship Specialty Start Date End Date Williams Hauser III, MD [address] [facility] [place], [place] [address] PCP - General Family Medicine 10/27/22 documented as of this encounter
--- OUTSIDE RECORDS SUMMARY | 2024-06-16 05:15 | External Medical Summary ---
Author Name Unknown Address Unknown Organization K09:[facility] [place] [address] Laboratory Report Ordering Provider Test Date Status TANYA SUTTON III 06/10/2024 10:49:34 Final Observation Date Value Abnormality Reference (Units ) Status Magnesium 06/10/2024 10:49:34 2.1 1.5-2.6 (m g/dL) Final Performing Location [facility] [place] [address]
--- OUTSIDE RECORDS SUMMARY | 2024-06-16 05:15 | External Medical Summary ---
Author Name Unknown Address Unknown Organization K01:[facility] [place] [address] [place] [address] Laboratory Report Ordering Provider Test Date Status TANYA SUTTON III 06/10/2024 10:49:34 Final Observation Date Value Abnormality Reference (Units ) Status Lipase 06/10/2024 10:49:34 110 Above high normal 13 -60 (U/L) Final Performing Location [facility] - [address] [place] [address]
--- OUTSIDE RECORDS SUMMARY | 2024-06-16 05:15 | External Medical Summary | Summary of Care ---
Author Name Unknown Organization [facility] Address [address] [address] Phone [phone] Care Team Providers Care Youth Officer Name Role Phone Murtaza BENTON MD, Williams Payton Primary Care Provider [phone] Reason for Visit * Reason Onset Date Comments Hospital Follow-Up Pt was D/C fr [facility] for here acute on Pancreatitis on Thursday. Pt is dealing with pain and has questions. Hospital Follow-Up 06/10/2024 Encounter Details Date Type Department Care Team (Late st Contact Info) Description 06/10/2024 10:00 AM EDT Office Visit Family Practice [facility] [place] [address] [facility] [place] [address] [facility], MD [facility] [address] [facility] discharge follow-up*; Acute on chronic pancreatitis (HCC); Pancreatic divisum Allergies Active Allergy Reactions Criticality Noted Date Comments Clindamycin Other (Please comment) 12/21/2014 Burned taste Muscle pain Doxycycline Low 08/22/2020 Other reaction(s): Metallic Taste Penicillins Unknown 10/07/2007 As a child Other reaction(s): UNKNOWN, CHILD ALLERGY documented as of this encounter (statuses as of 06/15/2024) Medications NATURAL SUPPLEMENT Take by mouth daily. Medical marijuana Active Loratadine 10 MG Oral Tablet Take 1 Tablet by mouth in the morning. Active Fluticasone Propionate 50 MCG/ACT Nasal Suspension Administer 1 [place] into nostril in the morning. Active Ondansetron [...] the morning. 30 Tablet 5 025 Active busPIRone HCl 15 MG Oral Tablet (Buspar) TAKE 1 TABLET BY MOUTH EVERY MORNING AND 1 TAB AT BEDTIME 180 Tablet 2 025 Active Famotidine 20 MG Oral Tablet (Pepcid) Take 1 Tablet by mouth at bedtime. 30 Tablet 2 025 Active Meloxicam 7.5 MG Oral Tablet (Mobic) Take 1 Tablet by mouth in the morning and 1 Tablet before bedtime. for pain.. 30 Tablet 5 025 Active Acetaminophen ER 650 MG Oral Tablet Extended Release (Tylenol 8 Hour Arthritis Pain) Take 2 Tablets by mouth in the morning and 2 Tablets before bedtime. 100 Tablet 3 025 Active oxyCODONE HCl 5 MG Oral Tablet (Oxy IR) Take 1 Tablet by mouth every 6 hours as needed for Pain, Moderate or Pain, Severe. 20 Tablet 025 Active Linzess 290 MCG Oral Capsule (linaCLOtide) Take 1 Capsule by mouth daily before breakfast. 30 Capsule 3 025 2024 Discontinued(M edication List Clean Up) Acetaminophen 325 MG Oral Tablet (Tylenol) Take 3 Tablets by mouth every 6 hours as needed for Fever >38C(100.5F), Pain, Mild or Pain, Moderate. 60 Tablet 025 2024 Discontinued documented as of this encounter (statuses as of 06/15/2024) Active Problems Problem Noted Date Diagnosed Date [...] as of this encounter (statuses as of 06/15/2024) Resolved Problems Problem Noted Date Diagnosed Date [...] as of this encounter (statuses as of 06/15/2024) Immunizations Name Administration Dates Next Due HPV [...] 06/01/2024 Does the household have a re lar source of income? (Household - for ages [...] Sign Reading Time Taken Comments Blood Pressure 108/70 06/10/2024 10:19 AM EDT Pulse 91 06/10/2024 10:19 AM EDT Temperature 36.9 C (98.5 F) 06/10/2024 1 0:19 AM EDT Respiratory Rate - - Oxygen Saturation 98% 06/10/2024 10: 19 AM EDT Inhaled Oxygen Concentration - - Weight 66.6 kg (146 lb 12.8 oz) 025 10:19 AM EDT Height 160 cm (5' 3") 06/10/2024 10:19 AM EDT Body Mass Index 26 06/10/2024 10:19 AM EDT documented in this encounter Functional Status * [...] Ogden ae, RN documented in this encounter Progress Notes * Williams Hauser III, MD - 06/10/2024 10:48 AM EDT Subjective: Rosalina Teran is a 38 year old female. Chief Complaint Patient presents with Hospital Follow-Up Pt was D/C from hospital [facility] for here acute on Pancreatitis on Thursday. Pt is dealing with pain and has questions. Hospital Follow-Up HPI: Hospital discharge follow-up admitted June 04 discharge June 09 acute on chronic pancreatitis did have low magnesium replaced pancreas divisum having significant pain no matter what she eats or drinks even after ensure somewhat more constipated hang in his epigastric pretty much constant using 2 oxy codon at a time has run out has had multiple hospitalizations in this regard plans den placement in seeing GI nutrition on the no bleeding urine or bowels no swelling PHM: Patient Active Problem List Diagnosis Other allergic [...] region Major depressive disorder with single episode History of acute pancreatitis Pancreatic divisum Irritable bowel syndrome with constipation Pancreatitis Current Outpatient Medications Medication Sig Dispense Refill NATURAL SUPPLEMENT Take by mouth daily. Medical marijuana Loratadine 10 MG Oral Tablet Take 1 Tablet by mouth in the morning. Fluticasone Propionate 50 MCG/ACT Nasal Suspension Administer 1 [place] into nostril in the morning. Ondansetron HCl [...] 1 TAB AT BEDTIME 180 Tablet 2 Famotidine 20 MG Oral Tablet (Pepcid) Take 1 Tablet by mouth at bedtime. 30 Tablet 2 Meloxicam 7.5 MG Oral Tablet (Mobic) Take 1 Tablet by mouth in the morning and 1 Tablet before bedtime. for pain.. 30 Tablet 5 Acetaminophen ER 650 MG Oral Tablet Extended Release (Tylenol 8 Hour Arthritis Pain) Take 2 Tabletsby mouth in the morning and 2 Tablets before bedtime. 100 Tablet 3 oxyCODONE HCl 5 MG Oral Tablet (Oxy IR) Take 1 Tablet by mouth every 6 hours as needed for Pain, Moderate or Pain, Severe. 20 Tablet 0 No current facility-administered medications for this visit. Past Medical History: Diagnosis Date Depressive disorder, not elsewhere classified 3- not currently on meds Early onset of delivery 05/16/01 Excessive or frequent menstruation Past Surgical History: Procedure Laterality Date COLONOSCOPY, DIAGNOSTIC (RECTUM) 03/08/2020 fair prep, normal / COLONOSCOPY FLEXIBLE PROXIMAL DIAGNOSTIC performed by Ellie Garcia MD at ENDOSCOPY [facility] COLONOSCOPY, DIAGNOSTIC (RECTUM) 04/28/2023 hemorrhoids/COLONOSCOPY FLEXIBLE PROXIMAL DIAGNOSTIC performed by Ellie Garcia MD at [facility] EDG FLEX, ORAL, W/ FUNDOPLASY N/A 04/28/2019 esophyX transforal fundopllication performed/normal/ESOPHAGOGASTRODUODENOSCOPY (EGD), FLEXIBLE, TRANSORAL, DIAGNOSTIC TIF's Proc performed by Ellie Garcia MD at [facility] EGD, FLEXIBLE, DIAGNOSTIC 12/17/2017 reflux esophagitis/ESOPHAGOGASTRODUODENOSCOPY (EGD), FLEXIBLE, TRANSORAL, DIAGNOSTIC performed by Ellie Garcia MD at [facility] EGD, FLEXIBLE, DIAGNOSTIC 02/21/2019 acid reflux on bx/ESOPHAGOGASTRODUODENOSCOPY (EGD), FLEXIBLE, TRANSORAL, DIAGNOSTIC performed by Ellie Garcia MD at [facility] EGD, FLEXIBLE, DIAGNOSTIC 03/04/2019 w/ [facility] EGD, FLEXIBLE, DIAGNOSTIC 07/22/2022 normal / ESOPHAGOGASTRODUODENOSCOPY (EGD), FLEXIBLE, TRANSORAL, DIAGNOSTIC performed by Ellie Garcia MD at [facility] EGD, W/ENDOSCOPIC US 07/22/2022 normal / ESOPHAGOGASTRODUODENOSCOPY (EGD), FLEXIBLE, TRANSORAL, ENDOSCOPIC ULTRASOUND performed by Ellie Garcia MD at [facility] EGD, W/ENDOSCOPIC US 05/10/2024 ESOPHAGOGASTRODUODENOSCOPY (EGD), FLEXIBLE, TRANSORAL, ENDOSCOPIC ULTRASOUND performed by Ellie Garcia MD at [facility] ERCP, DIAGNOSTIC, SPECIMEN COLLECTION 05/10/2024 ENDOSCOPIC RETROGRADE CHOLANGIOPANCREATOGRAPHY (ERCP) DIAGNOSTIC performed by Ellie Garcia MD at [facility] HYSTEROSCOPY;ENDOMETRIAL ABLAT 03/17/2012 LAP;W/HYSTERECTOMY 12/07/2015 with right salpingo-oophheorectomy LAPAROSCOPY; CHOLECYSTECTOMY 08/22/2020 Dr Katherine Garvin LIGATE/CUT OVIDUCT(S) 09/01/2005 [place] PAP SCREEN 11/20/2011 wnl Review of patient's allergies indicates: Allergen Reactions Clindamycin Other (Please comment) Burned taste Muscle pain Penicillins Unknown As a child Other reaction(s): UNKNOWN, CHILD ALLERGY Doxycycline Other reaction(s): Metallic Taste Objective: BP 108/70 (BP Site: Left Arm, BP Position: Sitting, BP Cuff Size: Regular) | Pulse 91 | Temp 98.5 F (36.9 C) (Tympanic) | Ht 5' 3" (1.6 m) | Wt 146 lb 12.8 oz (66.6 kg) | SpO2 98% | BMI 26.00 kg/m | BSA 1.72 m Physical Exam: Now I think he is actually going up to get his MRIs now so he has gone area alone just dictating saw Toni MichellePatel I do not think so ASSESSMENT/PLAN: Hospital discharge follow-up (Primary) - DISCH MED RECON CUR MED LIS Acute on chronic pancreatitis (HCC) - LIPASE; Future; Expected date: 06/10/2024 - MAGNESIUM; Future; Expected date: 06/10/2024 - COMPREHENSIVE METABOLIC PANEL; Future; Expected date: 06/10/2024 Pancreatic divisum Other orders - Meloxicam 7.5 MG Oral Tablet (Mobic); Take 1 Tablet by mouth in the morning and 1 Tablet before bedtime. for pain.. - Acetaminophen ER 650 MG Oral Tablet Extended Release (Tylenol 8 Hour Arthritis Pain); Take 2 Tablets by mouth in the morning and 2 Tablets before bedtime. - oxyCODONE HCl 5 MG Oral Tablet (Oxy IR); Take 1 Tablet by mouth every 6 hours as needed for Pain,Moderate or Pain, Severe. Minimize need of oxycodone as a ball let us know how needs new meds are doing beginning of the week Total time 31 minutes Williams Hauser III, MD documented in this encounter Nursing Notes * Kain Martin CMA - 06/10/2024 10:21 AM EDT The patient has been properly identified by confirmation of name and date of . Chief Complaint Patient presents with Hospital Follow-Up Pt was D/C from [facility] for here acute on Pancreatitis on Thursday. Pt is dealing with pain and has questions. Hospital Follow-Up documented in this encounter Plan of Treatment Upcoming Encounters Date Type Department Care Team (Latest Contact Info) Description 06/17/2024 1:30 PM EDT Office Visit Gastroenterolog y, [facility] [place] [address] [place] [phone] Cammie Zapata PA-C [address] [place] [address] 06/21/2024 11:00 AM EDT Telemedicine [facility] Mcconnell [address] [place] [address] Diane Lyons RDN [address] [place] [address] 08/18/2024 8:00 AM EDT Hospital Encounter ENDO [facility], Endoscopy Room [facility] [address] [place] [phone] Ellie Garcia MD [address] [place] [address] 08/18/2024 8:00 AM EDT - 08/18/2024 8:45 AM EDT Surgery ENDO [facility], Endoscopy Room [facility] [address] [place] [phone] Ellie Garcia MD [address] [place] [address] ENDOSCOPIC RETROGRADE CHOLANGIOPANCREATOGRAPHY (ERCP) DIAGNOSTIC 11/04/2024 8:40 AM EDT Office Visit [facility] [place] [address] [place] [address] Williams Hauser III, MD [address] [place] [address] Scheduled Procedures Name Priority Associated Diagnoses Date/Ti wv ENDOSCOPIC RETROGRADE CHOLANGIOPANCREATOGRAPHY (ERCP) DIAGNOSTIC Chronic recurrent [...] this encounter Medical Devices Implanted Type Area Cobbler Upper Device Identifier Shelf Expiration Date Model / Serial / Lot Cartridge Esophyx Z+ - [id number] Implanted:Qty: 1 on 04/28/2019 by Ellie Garcia MD at OR [facility] [employer] 11/03/2020 [id number] / / [id number] Description:fasteners 10@11, 10@1, 4@5, 4@7 placed at GE junction (code 0278) Stent Panc Sgl Pigtail [id number] - [id number] Implanted:Qty: 1 on 05/10/2024 by Ellie Garcia MD at ENDOSCOPY [facility] N/A: Stomach COOK : IMELDA MAYO 09/29/2025 [id number] / / [id number] documented as of this encounter Results * COMPREHENSIVE METABOLIC PANEL (06/10/2024 10:49 AM EDT) BUN 14 6 - 20 mg/dL 06/10/2024 12:12 PM T [place] [address] CREATININE 0.9 0.5 - 1.0 mg/dL 06/10/2024 12:12 PM EDT [place] [address] EGFR 79 >=60 mL/min 06/10/2024 12:12 PM [facility] Comment:eGFR is calculated b ased on the CKD-EPI 2020 equation. SODIUM 140 135 - 146 mmol/L 06/10/2024 12:12 PM T [place] [address] POTASSIUM 4.5 3.5 - 5.1 mmol/L 06/10/2024 12:12 PM [place] [address] CHLORIDE 101 98 - 107 mmol/L 06/10/2024 12:12 [address] CO2 29 22 - 32 mmol/L 06/10/2024 12:12 PM [place] [address] ANION GAP 10 7 - 15 mmol/L 06/10/2024 12:12 PM T [place] [address] GLUCOSE 94 70 - 120 mg/dL 06/10/2024 12:12 PM [place] [address] Albumin 4.7 3.8 - 5.0 g/dL 06/10/2024 12:12 PM [place] [address] AST 22 10 - 35 U/L 06/10/2024 12:12 PM [place] [address] Alkaline Phosphatase 90 35 - 130 U/L 06/10/2024 12:[address] Bilirubin, Total 0.3 <=1.2 mg/dL 06/10/2024 12:12 PM T [facility] 56 CALCIUM 10.0 8.4 - 10.2 mg/dL 06/10/2024 12:12 PM [facility] 56 Protein 7.1 6.0 - 8.3 g/dL 06/10/2024 12:12 PM [facility] 56 ALT 28 10 - 35 U/L 06/10/2024 12:12 PM [facility] Blood Venous blood specimen / Unknown Venipuncture / Unknown 06/10/2024 10:49 AM EDT 06/10/2024 10:49 AM EDT Williams Hauser III, MD LAB BLOOD ORDERABLES Final Result Performing Organization Address [facility] de Phone Number [facility] [address] [place] [address] * MAGNESIUM (06/10/2024 10:49 AM EDT) Magnesium 2.1 1.5 - 2.6 mg/dL 06/10/2024 12:12 PM EDT LABORATORY [place] [address] Blood Venous blood specimen / Unknown Venipuncture / Unknown 06/10/2024 10:49 AM EDT 06/10/2024 10:49 AM EDT Williams Hauser III, MD LAB BLOOD ORDERABLES Final Result Performing Organization Address [facility] de Phone Number [facility] [phone] [place] [address] * (ABNORMAL) LIPASE (06/10/2024 10:49 AM EDT) Lipase 110(H) 13 - 60 U/L 06/10/2024 9:28 PM EDT LABORATORY [facility] Blood Venous blood specimen / Unknown Venipuncture / Unknown 06/10/2024 10:49 AM EDT 06/10/2024 10:49 AM EDT Williams Hauser III, MD LAB BLOOD ORDERABLES Final Result Performing Organization Address [facility] [address]/[facility] Co de Phone Number LABORATORY [facility] [address] [place] [address] documented in this encounter Visit Diagnoses Diagnosis Hospital discharge follow-up- Primary Other follow-up examination Acute on chronic pancreatitis (HCC) Pancreatic divisum Congenital anomalies of pancreas Chronic recurrent pancreatitis [...] patient or by statute hierarchy) Care Teams Youth Officer Relationship Specialty Start Date End Date Williams Hauser III, MD [address] [place] [address] PCP - General Family Medicine 10/27/22 documented as of this encounter
--- OUTSIDE RECORDS SUMMARY | 2024-06-16 05:16 | External Medical Summary | Summary of Care ---
Author Name Unknown Organization [facility] Address [address] [place] [address] Phone [phone] Care Team Providers Care Screw Machine Operator Name Role Phone Murtaza BENTON MD, Williams Payton Primary Care Provider [phone] Reason for Visit * Reason Onset Date Comments Referral 06/08/2024 manager pe Encounter Details Date Type Department Care Team (Late st Contact Info) Description 06/08/2024 Telephone Family Practice [facility] [place] [address] [facility] [place] [address] Williams Hauser III, MD [address] [place] [address] Referral (manager pe) Allergies Active Allergy Reactions Criticality Noted Date Comments Clindamycin Other (Please comment) 12/21/2014 Burned taste Muscle pain Doxycycline Low 08/22/2020 Other reaction(s): Metallic Taste Penicillins Unknown 10/07/2007 As a child Other reaction(s): UNKNOWN, CHILD ALLERGY documented as of this encounter (statuses as of 06/08/2024) Medications NATURAL SUPPLEMENT Take by mouth daily. Medical marijuana Active Loratadine 10 MG Oral Tablet Take 1 Tablet by mouth in the morning. Active Fluticasone Propionate 50 MCG/ACT Nasal Suspension Administer 1 [place] into nostril in the morning. Active Ondansetron [...] as of this encounter (statuses as of 06/08/2024) Active Problems Problem Noted Date Diagnosed Date [...] as of this encounter (statuses as of 06/08/2024) Resolved Problems Problem Noted Date Diagnosed Date [...] as of this encounter (statuses as of 06/08/2024) Immunizations Name Administration Dates Next Due HPV [...] Ogden ae, RN documented in this encounter Miscellaneous Notes * Telephone Encounter - Bev Calles RN - 06/08/2024 2:38 PM EDT New referral for manager pe. Patient has issues eating, she has lost ~10lbs due to poor appetite. History of chronic pancreatitis related to pancreatic divisum. documented in this encounter Plan of Treatment Upcoming Encounters Date Type Department Care Team (Latest Contact Info) Description 06/13/2024 11:00 AM EDT Office Visit [facility] [address] [place] [address] Williams Hauser III, MD 200 [facility] [place] [address] 08/18/2024 8:00 AM EDT Hospital Encounter ENDO OSSC, Endoscopy Room [facility] [address] [place] [address] Ellie Garcia MD [address] [place] [address] 08/18/2024 8:00 AM EDT - 08/18/2024 8:45 AM EDT Surgery ENDO OSSC, Endoscopy Room [facility] [address] [place] [address] Ellie Garcia MD [address] [place] [address] ENDOSCOPIC RETROGRADE CHOLANGIOPANCREATOGRAPHY (ERCP) DIAGNOSTIC 08/30/2024 11:00 AM EDT Office Visit Gastroenterology , [facility] [address] [place] [address] Myranda Mckeon CRNP [address] [place] [address] 11/04/2024 8:40 AM EDT Office Visit [facility] [address] [facility] [place] [address] Williams Hauser III, MD [address] [place] [address] [address] Scheduled Procedures Name Priority Associated Diagnoses Date/Ti [...] this encounter Medical Devices Implanted Type Area Food Counter Worker Device Identifier Shelf Expiration Date Model / Serial / Lot Cartridge Esophyx Z+ - [id number] Implanted:Qty: 1 on 04/28/2019 by Ellie Garcia MD at OR [facility] [employer] 11/03/2020 [id number] / / [id number] Description:fasteners 10@11, 10@1, 4@5, 4@7 placed at GE junction (code 0278) Stent Panc Sgl Pigtail [id number] - [id number] Implanted:Qty: 1 on 05/10/2024 by Ellie Garcia MD at ENDOSCOPY [facility] N/A: Stomach COOK : IMELDA MAYO 09/29/2025 [id number] / / [id number] documented as of this encounter Advance Directives [...] patient or by statute hierarchy) Care Teams Screw Machine Operator Relationship Specialty Start Date End Date Williams Hauser III, MD 200 [place] [address] PCP - General Family Medicine 10/27/22 documented as of this encounter
--- OUTSIDE RECORDS SUMMARY | 2024-06-16 05:16 | External Medical Summary | Summary of Care ---
Author Name Unknown Organization [facility] Address [address] [place] [address] Phone [phone] Care Team Providers Care Fur Mixer Name Role Phone Murtaza BENTON MD, Williams Payton Primary Care Provider [phone] Reason for Referral * Evaluate & Treat - Unlimited Visits (Within 3 days (urgent)) - Authorized Specialty Diagnoses / Procedures Referred By Contac t Referred To Contact Dietitian / Nutrition Services Diagnoses Need for case management follow-up Fatty (change of) liver, not elsewhere classified Pancreatic divisum Williams Hauser III, MD [address] [address] Phone: tel: fax: Referral ID Status Reason Start Date Expiration Date Visits Requested Visits Authorized [id number] Authorized Specialty Services Required 06/08/[phone] Question Answer Referral Priority Within 3 days (urgent) Where should this appointment be scheduled? [facility] What condition is the patient being seen for? All other conditions Other: GI conditions/ symptoms - chronic pancreatitis r/t divisum Comments Medical Nutrition Therapy Encounter Details Date Type Department Care Team (Late st Contact Info) Description 06/08/2024 Orders Only Family Practice [facility] [facility] [address] [place] [address] [address] Williams Hauser III, MD [address] [place] [address] [address] Need for case management follow-up*; Fatty (change of) liver, not elsewhere classified; Pancreatic divisum Allergies Active Allergy Reactions Criticality [...] Propionate 50 MCG/ACT Nasal Suspension Administer 1 [place] into nostril in the morning. Active Ondansetron [...] use disorder 04/14/2005 016 Normal , first 11/24/2000/0 10/2001 Major depressive disorder 07/30/1999 Overview (01/20/2017): [...] No 06/01/2024 Does the household have a [facility] source of income? (Household - for ages [...] Description 06/13/2024 11:00 AM EDT Office Visit [facility] [address] [facility] [place] [address] Williams Hauser III, MD [address] [facility] [place] [address] 08/18/2024 8:00 AM EDT Hospital Encounter ENDO OSSC, Endoscopy Room [facility] [address] [place] [phone] Ellie Garcia MD [address] [place] [address] 08/18/2024 8:00 AM EDT - 08/18/2024 8:45 AM EDT Surgery ENDO OSSC, Endoscopy Room [facility] [address] [place] [phone] Ellie Garcia MD [address] [place] [address] ENDOSCOPIC RETROGRADE CHOLANGIOPANCREATOGRAPHY (ERCP) DIAGNOSTIC 08/30/2024 11:00 AM EDT Office Visit Gastroenterology , [facility] [address] [place] [address] Myranda Mckeon CRNP [address] [place] [address] 11/04/2024 8:40 AM EDT Office [facility] [place] [address] [facility] [place] [address] Williams Hauser III, MD [address] [facility] [place] [address] Scheduled Procedures Name Priority Associated Diagnoses Date/Ti me ENDOSCOPIC RETROGRADE CHOLANGIOPANCREATOGRAPHY (ERCP) DIAGNOSTIC Chronic recurrent pancreatitis (HCC) 08/18/2024 8:00 AM EDT ENDOSCOPIC RETROGRADE CHOLANGIOPANCREATOGRAPHY (ERCP) W/STENT REMOVAL AND EXCHANGE; INC DILATION, GUIDE WIRE AND SPHINCTEROTOMY Chronic recurrent pancreatitis (HCC) 08/18/2024 8:00 AM EDT Scheduled Referrals Name Type Priority Associated Diagnoses Orde r Schedule NUTRITION-CLINICAL DIETITIAN REFERRAL OP Referral Within 3 days (urgent) Need for case management follow-up Fatty (change of) liver, not elsewhere classified Pancreatic divisum Ordered: 06/08/2024 Health Maintenance Due Date Last Done Comments [...] this encounter Medical Devices Implanted Type Area Banquet Stewardess Device Identifier Shelf Expiration Date Model / Serial / Lot Cartridge Esophyx Z+ - [id number] Implanted:Qty: 1 on 04/28/2019 by Ellie Garcia MD at OR [facility] [employer] 11/03/2020 [id number] / / [id number] Description:fasteners 10@11, 10@1, 4@5, 4@7 placed at GE junction (code 0278) Stent Panc Sgl Pigtail [id number] - [id number] Implanted:Qty: 1 on 05/10/2024 by Ellie Garcia MD at ENDOSCOPY [facility] N/A: Stomach COOK : IMELDA COOK 09/29/2025 [id number] / / [id number] documented as of this encounter Visit Diagnoses Diagnosis Need for case management follow-up- Primary Fatty (change of) liver, not elsewhere classified Pancreatic divisum Congenital anomalies of pancreas Chronic [...] patient or by statute hierarchy) Care Teams Fur Mixer Relationship Specialty Start Date End Date Williams Hauser III, MD [facility] [place] [address] PCP - General Family Medicine 10/27/22 documented as of this encounter
--- OUTSIDE RECORDS SUMMARY | 2024-06-16 05:16 | External Medical Summary | Summary of Care ---
Author Name Unknown Organization [facility] Address [address] [place] [address] Phone [phone] Care Team Providers Care Machine Stemmer Name Role Phone Murtaza BENTON MD, Williams Payton Primary Care Provider [phone] Reason for Visit * Reason Onset Date Comments Referral 06/08/2024 coffee maker Encounter Details Date Type Department Care Team (Late st Contact Info) Description 06/08/2024 Telephone Family Practice [facility] [place] [address] [facility] [place] [address] Williams Hauser III, MD 200 [place] [address] Referral (coffee maker) Allergies Active Allergy Reactions Criticality Noted Date [...] Propionate 50 MCG/ACT Nasal Suspension Administer 1 [place] into nostril in the morning. Active Ondansetron [...] 06/08/2024 2:38 PM EDT New referral for coffee maker. Patient has issues eating, she has lost ~10lbs due to poor appetite. History of chronic pancreatitis related to pancreatic divisum. documented in this encounter Plan of Treatment Upcoming Encounters Date Type Department Care Team (Latest Contact Info) Description 06/13/2024 11:00 AM EDT Office Visit [facility] [address] [facility] [place] [address] Williams Hauser III, MD [address] [facility] [facility] [place] [address] 08/18/2024 8:00 AM EDT Hospital Encounter ENDO OSSC, Endoscopy Room [facility] [address] [place] [address] Ellie Garcia MD [address] [place] [address] 08/18/2024 8:00 AM EDT - 08/18/2024 8:45 AM EDT Surgery ENDO OSSC, Endoscopy Room [facility] [address] [place] [address] Ellie Garcia MD [address] [place] [address] ENDOSCOPIC RETROGRADE CHOLANGIOPANCREATOGRAPHY (ERCP) DIAGNOSTIC 08/30/2024 11:00 AM EDT Office Visit Gastroenterology , [facility] [address] [place] [address] Myranda Mckeon CRNP [address] [place] [address] 11/04/2024 8:40 AM EDT Office Visit [facility] [address] [facility] [place] [address] Williams Hauser III, MD [address] [place] [address] [address] Scheduled Procedures Name Priority Associated Diagnoses Date/Ti [...] this encounter Medical Devices Implanted Type Area Hairspring Adjuster Device Identifier Shelf Expiration Date Model / Serial / Lot Cartridge Esophyx Z+ - [id number] Implanted:Qty: 1 on 04/28/2019 by Ellie Garcia MD at OR [facility] [employer] 11/03/2020 [id number] / / [id number] Description:fasteners 10@11, 10@1, 4@5, 4@7 placed at GE junction (code 0278) Stent Panc Sgl Pigtail [id number] - [id number] Implanted:Qty: 1 on 05/10/2024 by Ellie Garcia MD at ENDOSCOPY [facility] N/A: Stomach COOK : IMELDA MAYO 09/29/2025 [id number] / / [id number] documented as of this encounter Advance Directives [...] patient or by statute hierarchy) Care Teams Machine Stemmer Relationship Specialty Start Date End Date Williams Hauser III, MD 200 [place] [address] PCP - General Family Medicine 10/27/22 documented as of this encounter
--- OUTSIDE RECORDS SUMMARY | 2024-06-16 06:57 | External Medical Summary | Summary of Care ---
Author Name Unknown Organization [facility] Address [address] [place] [address] Phone [phone] Care Team Providers Care Shoe Parts Molder Name Role Phone Murtaza BENTON MD, Williams Payton Primary Care Provider [phone] Reason for Visit * Reason Onset Date Comments Test Results 06/14/2024 Encounter Details Date Type Department Care Team (Late st Contact Info) Description 06/14/2024 Telephone Gastroenterology, [facility] [address] [place] [address] Myranda Mckeon CRNP [address] [place] [address] Test Results Allergies Active Allergy Reactions Criticality Noted Date [...] Propionate 50 MCG/ACT Nasal Suspension Administer 1 [place] into nostril in the morning. Active Ondansetron [...] morning. 30 Tablet 5 04/14/19 25 Active busPIRone HCl 15 MG Oral Tablet (Buspar) TAKE 1 TABLET BY MOUTH EVERY MORNING AND 1 TAB AT BEDTIME 180 Tablet 2 04/22/19 25 Active Famotidine 20 MG Oral Tablet (Pepcid) Take 1 Tablet by mouth at bedtime. 30 Tablet 2 05/24/19 25 Active Meloxicam 7.5 MG Oral Tablet (Mobic) Take 1 Tablet by mouth in the morning and 1 Tablet before bedtime. for pain.. 30 Tablet 5 06/11/19 25 Active Acetaminophen ER 650 MG Oral Tablet Extended Release (Tylenol 8 Hour Arthritis Pain) Take 2 Tablets by mouth in the morning and 2 Tablets before bedtime. 100 Tablet 3 06/11/19 25 Active oxyCODONE HCl 5 MG Oral Tablet (Oxy IR) Take 1 Tablet by mouth every 6 hours as needed for Pain, Moderate or Pain, Severe. 20 Tablet 06/11/19 25 Active Pregabalin 25 MG Oral Capsule (Lyrica)Indicatio ns:Idiopathic chronic pancreatitis (HCC) Take 1 Capsule by mouth in the morning. 30 Capsule 06/15/19 25 Active Pancrelipase (Xmv-Ytyt-Ldxb) 469[address] UNIT Oral Capsule Delayed Release Particles (Creon 85245)Indications :Idiopathic chronic pancreatitis (HCC) Take 2 capsules with breakfast, lunch, and dinner, 1 capsule with snacks 270 Capsule 6 06/15/19 25 2024 Discontinued documented as of this encounter [...] encounter Miscellaneous Notes * Telephone Encounter - Heather Jones RN - 06/14/2024 12:41 PM EDT No answer. LM requesting return call. Also sent [employer] message to patient. * Telephone Encounter - Myranda Mckeon CRNP - 06/14/2024 11:49 AM EDT Spoke with Dr. Ellie Garcia. Her pain is likely related to the recent pancreatitis with likely underlying chronic pancreatitis. He recommended starting Creon-- take 2 capsules with breakfast, lunch, dinner, and 1 capsule with snacks. Can also try short term Pregabalin/Lyrica for pain control- will start with 25 mg daily and can titrate pending response. Recommend avoidance of oxycodone with lyrica use. JANENE- FAUSTO Ma documented in this encounter Plan of Treatment Upcoming Encounters Date Type Department Care Team (Latest Contact Info) Description 06/17/2024 1:30 PM EDT Office Visit Gastroenterolog y, [place] [address] [place] [address] Cammie Zapata PA-C [facility] [address] [place] [id number] 06/21/2024 11:00 AM EDT Telemedicine [facility] Mcconnell [address] [place] [address] Diane Lyons RDN [address] [place] [address] 08/18/2024 8:00 AM EDT Hospital Encounter ENDO OSSC, Endoscopy Room [facility] [address] [place] [address] Ellie Garcia MD [address] [place] [address] 08/18/2024 8:00 AM EDT - 08/18/2024 8:45 AM EDT Surgery ENDO O[facility]C, Endoscopy Room [facility] [address] [place] [address] Ellie Garcia MD [address] [place] [address] ENDOSCOPIC RETROGRADE CHOLANGIOPANCREATOGRAPHY (ERCP) DIAGNOSTIC 11/04/2024 8:40 AM EDT Office Visit [facility] 200 [facility] [place] [address] Williams Hauser III, MD 200 [place] [address] Scheduled Procedures Name Priority Associated Diagnoses Date/Ti [...] this encounter Medical Devices Implanted Type Area Assembler And Tester Electronics Device Identifier Shelf Expiration Date Model / Serial / Lot Cartridge Esophyx Z+ - [id number] Implanted:Qty: 1 on 04/28/2019 by Ellie Garcia MD at OR [facility] [employer] 11/03/2020 R2275 / / [id number] Description:fasteners 10@11, 10@1, 4@5, 4@7 placed at GE junction (code 0278) Stent Panc Sgl Pigtail [id number] - [id number] Implanted:Qty: 1 on 05/10/2024 by Ellie Garcia MD at ENDOSCOPY [facility] N/A: Stomach COOK : IMELDA MAYO 09/29/2025 [id number] / / [id number] documented as of this encounter Visit Diagnoses [...] patient or by statute hierarchy) Care Teams Shoe Parts Molder Relationship Specialty Start Date End Date Williams Hauser III, MD 200 [place] [address] PCP - General Family Medicine 10/27/22 documented as of this encounter
--- OUTSIDE RECORDS SUMMARY | 2024-06-16 06:57 | External Medical Summary | Summary of Care ---
Author Name Unknown Organization [facility] Address [address] [place] [address] Phone [phone] Care Team Providers Care Foreign Language Teacher Name Role Phone Murtaza BENTON MD, Williams Payton Primary Care Provider [phone] Reason for Visit * Reason Onset Date Comments Medication Problem 06/15/2024 Encounter Details Date Type Department Care Team (Late st Contact Info) Description 06/15/2024 Telephone Gastroenterology, [facility] [address] [place] [address] Pierce Murphy CRNP [address] [place] [address] Medication Problem Allergies Active Allergy Reactions Criticality Noted Date [...] Propionate 50 MCG/ACT Nasal Suspension Administer 1 [place] into nostril in the morning. Active Ondansetron [...] morning. 30 Capsule 06/15/19 25 Active Pancrelipase (Vmp-Loru-Zebi) [address] UNIT Oral Capsule Delayed Release Particles (Creon 73641)Indications :Idiopathic chronic pancreatitis (HCC) Take 2 capsules with breakfast, lunch, and dinner, 1 capsule with snacks. Max 9 capsules daily. 270 Capsule 6 06/16/19 25 Active Pancrelipase (Urm-Vmzo-Xlgg) [address] UNIT Oral Capsule Delayed Release Particles (Creon 24809)Indications :Idiopathic chronic pancreatitis (HCC) Take 2 capsules [...] 06/15/2024) Immunizations Name Administration Dates Next Due DTP [...] documented in this encounter Miscellaneous Notes * Addendum Note - Pierce Murphy CRNP - 06/15/2024 1:57 PM EDTAddended by: PIERCE MURPHY on: 06/15/2024 01:57 PM Modules accepted: Orders * Telephone Encounter - Pierce Murphy CRNP - 06/15/2024 1:57 PM EDT RX updated * Telephone Encounter - Zoe Greenberg CMA - 06/15/2024 1:52 PM EDT Received fax from [facility] requesting clarification for RX pancrelipase. How many caps can pt take per day?Script must have max per day. Please resend with clarification. documented in this encounter Plan of Treatment Upcoming Encounters Date Type Department Care Team (Latest Contact Info) Description 06/17/2024 1:30 PM EDT [facility] [address] [place] [address] Cammie Zapata PA-C [address] [place] [address] 06/21/2024 11:00 AM EDT Telemedicine [facility] [address] [place] [address] Diane Lyons, GUSTAVO [address] [place] [address] 08/18/2024 8:00 AM EDT Hospital Encounter ENDO OSSC, Endoscopy Room [facility] [address] [place] [phone] Ellie Garcia MD [address] [place] [address] 08/18/2024 8:00 AM EDT - 08/18/2024 8:45 AM EDT Surgery ENDO OSSC, Endoscopy Room [facility] [address] [place] [phone] Ellie Garcia MD [address] [place] [address] ENDOSCOPIC RETROGRADE CHOLANGIOPANCREATOGRAPHY (ERCP) DIAGNOSTIC 11/04/2024 8:40 AM EDT Office Visit [facility] [place] [address] [place] [address] Williams Hauser III, MD [address] [place] [address] Scheduled Procedures Name Priority Associated Diagnoses Date/Ti [...] this encounter Medical Devices Implanted Type Area Cashier Assistant Device Identifier Shelf Expiration Date Model / Serial / Lot Cartridge Esophyx Z+ - [id number] Implanted:Qty: 1 on 04/28/2019 by Ellie Garcia MD at OR [facility] [employer] 11/03/2020 [id number] / / [id number] Description:fasteners 10@11, 10@1, 4@5, 4@7 placed at GE junction (code 0278) Stent Panc Sgl Pigtail [id number] - [id number] Implanted:Qty: 1 on 05/10/2024 by Ellie Garcia MD at ENDOSCOPY [facility] N/A: Stomach MARIA ESTHER : IMELDA MAYO 09/29/2025 [id number] / / [id number] documented as of this encounter Visit Diagnoses Diagnosis Idiopathic chronic pancreatitis (HCC) Chronic recurrent pancreatitis [...] patient or by statute hierarchy) Care Teams Foreign Language Teacher Relationship Specialty Start Date End Date Williams Hauser III, MD 200 [facility] [place] [address] PCP - General Family Medicine 10/27/22 documented as of this encounter
--- OUTSIDE RECORDS SUMMARY | 2024-06-16 06:57 | External Medical Summary | Summary of Care ---
Author Name Unknown Organization [facility] Address [address] [place] [address] Phone [phone] Care Team Providers Care Business Services Associate Name Role Phone Murtaza BENTON MD, Williams Payton Primary Care Provider [phone] Reason for Visit * Reason Onset Date Comments Medication Problem 06/15/2024 Encounter Details Date Type Department Care Team (Late st Contact Info) Description 06/15/2024 Telephone Gastroenterology, [facility] [address] [place] [address] Pierce Murphy CRNP [address] [place] [address] Medication Problem Allergies Active Allergy Reactions Criticality [...] Propionate 50 MCG/ACT Nasal Suspension Administer 1 [place] into nostril in the morning. Active [...] morning. 30 Capsule 06/15/19 25 Active Pancrelipase (Nil-Fgrw-Dvkq) 65572-[address] UNIT Oral Capsule Delayed Release Particles (Creon 90572)Indications :Idiopathic chronic pancreatitis (HCC) Take 2 capsules with breakfast, lunch, and dinner, 1 capsule with snacks. Max 9 capsules daily. 270 Capsule 6 06/16/19 25 Active Pancrelipase (Enw-Zxmy-Kivj) [id number] UNIT Oral Capsule Delayed Release Particles (Creon 23714)Indications :Idiopathic chronic pancreatitis (HCC) Take 2 capsules [...] - 06/15/2024 1:57 PM EDTAddended by: PIERCE MUPRHY on: 06/15/2024 01:57 PM Modules accepted: Orders * Telephone Encounter - Pierce Murphy CRNP - 06/15/2024 1:57 PM EDT RX updated * Telephone Encounter - Zoe Greenberg CMA - 06/15/2024 1:52 PM EDT Received fax from [facility] requesting clarification for RX pancrelipase. How many caps can pt take per day?Script must have max per day. Please resend with clarification. documented in this encounter Plan of Treatment Upcoming Encounters Date Type Department Care Team (Latest Contact Info) Description 06/17/2024 1:30 PM EDT Office Visit G[facility]olog y, [facility] [address] [place] [address] Cammie Zapata PA-C [address] [place] [address] 06/21/2024 11:00 AM EDT Telemedicine [facility] [address] [place] [address] Diane Lyons, GUSTAVO [address] [place] [address] 08/18/2024 8:00 AM EDT Hospital Encounter ENDO OSS[facility], Endoscopy Room [facility] [address] [place] [phone] Ellie Garcia MD [address] [place] [address] 08/18/2024 8:00 AM EDT - 08/18/2024 8:45 AM EDT Surgery ENDO [facility], Endoscopy Room [facility] [address] [place] [phone] Ellie Garcia MD [address] [place] [address] ENDOSCOPIC RETROGRADE CHOLANGIOPANCREATOGRAPHY (ERCP) DIAGNOSTIC 11/04/2024 8:40 AM EDT Office Visit [facility] [place] [address] [place] [address] Williams Hauser III, MD [address] [place] [address] Scheduled Procedures Name Priority Associated Diagnoses Date/Ti [...] this encounter Medical Devices Implanted Type Area Carpet Measurer Device Identifier Shelf Expiration Date Model / Serial / Lot Cartridge Esophyx Z+ - [id number] Implanted:Qty: 1 on 04/28/2019 by Ellie Garcia MD at OR [facility] ENDOGASTRIC [employer] 11/03/2020 [id number] / / [id number] Description:fasteners 10@11, 10@1, 4@5, 4@7 placed at GE junction (code [id number]) Stent Panc Sgl Pigtail [id number] - [id number] Implanted:Qty: 1 on 05/10/2024 by Ellie Garcia MD at ENDOSCOPY [facility] N/A: Stomach MARIA ESTHER : IMELDA MAYO 09/29/2025 [id number] / / [id number] documented as of this encounter Visit Diagnoses [...] patient or by statute hierarchy) Care Teams Business Services Associate Relationship Specialty Start Date End Date Williams Hauser III, MD [address] [place] [address] PCP - General Family Medicine 10/27/22 documented as of this encounter
[2024-06-16 08:34] LABS: Basophils # (auto) 0.05 K/uL (0.00-0.20); Basophils % (auto) 0.9 %; Eosinophils # (auto) 0.24 K/uL (0.00-0.50); Eosinophils % (auto) 4.3 %; Hematocrit (blood only) 38.6 % (37.0-47.0); Hemoglobin 13.1 g/dl (12.0-16.0); Immature Granulocytes # (auto) 0.01 K/uL (0.01-0.20); Immature Granulocytes % (auto) 0.2 %; Lymphocytes # (auto) 1.91 K/uL (1.20-3.40); Lymphocytes % (auto) 34.2 %; Mean Corpuscular Hemoglobin 31.6 pg (25.0-34.0); Mean Corpuscular Hgb Conc 33.9 g/dL (32.0-36.0); Mean Platelet Volume 8.8 fL (9.4-12.4); Monocytes # (auto) 0.47 K/uL (0.11-0.59); Monocytes % (auto) 8.4 %; Platelet Count 265 K/uL (130-400); RDW Coefficient of Variation 12.9 % (11.5-14.5); RDW Standard Deviation 43.9 fL (36.4-46.3); Red Blood Count 4.15 M/uL (4.20-5.40); White Blood Count 5.58 K/ul (4.8-10.8)
[2024-06-16 08:50] LABS: Albumin Level 4.1 gm/dl (3.4-5.0); BUN Creatinine Ratio 18.4 (10-20); Bilirubin,Total 0.6 mg/dl (0.2-1.0); Calcium 8.9 mg/dl (8.6-10.3); Creatinine Clr Calc Pharmacy 92.6 ml/min; Globulin 2.1 gm/dl (2.5-4.0); Potassium 4.1 mmol/L (3.5-5.1); Total Protein 6.2 gm/dl (6.0-8.3)
[2024-06-16] MEDS: PANTOprazole 40 MG TAB PO SCH ×2 (09:13→20:20)
[2024-06-16] MEDS: DULoxetine HCL 60 MG CAP PO SCH (09:13)
[2024-06-16] MEDS: ENOXAPARIN INJ 40 MG/0.4 ML SYR SQ SCH (09:13)
--- NOTE | 2024-06-16 10:50 | Gastrointestinal Consultation ---
<Statement entered by Raheem Talley MD - 06/16/24 17:25> I have reviewed the history, physical exam, lab and imaging findings as dictated by the mid-level provider, made any necessary modifications, and agree with the stated assessment and recommendations. A total of 50 minutes was spent in the review, direct observation, decision making and discussion of this case with the patient/family and other providers. Raheem Talley MD Date of Consultation June 16, 2024 Assessment & Plan (1) Abdominal pain: Recent recurrent pancreatitis Lipase [address] CT unremarkable. Pain ? recurrent acute pancreatitis, exacerbations recently ? correlated with panc stent placement; constipation; narcotic hyperalgesia, other. -Patient currently on a liquid diet, would advance to strictly low fat diet -Continue liquid diet -Continue IV hydration and pain control per primary team -Continue Protonix, but increase to 40 mg BID for now to see if symptoms lessen. -Continue Famotidine as currently prescribed - Constipation elimination/prevention -Patient needs follow-up with Dr. Garcia as an outpatient. I've encouraged her to contact him either via [employer] or by phone when she is discharged. History of Present Illness Reason for Consultation: Recurrent pancreatitis Attending Physician: Hussein Zambrano MD History of Present Illness Patient is a 38 yo female with PMH of recurrent acute on chronic pancreatitis, pancreatic divisum, history of ERCP with pancreatic stent placement on 05/10/[address] Garcia. She has been admitted frequently for pancreatitis since her ERCP with pancreatic stent placement. During one of her previous hospitalizations in recent weeks there was concern for necrotizing pancreatitis on MRCP imaging and patent was transferred to [facility]. She did not require any intervention there. Patient notes she was doing okay until yesterday. She notes she developed upper abdominal pain similar to previous episodes. She notes she took Oxycodone without relief and sought ED evaluation. She was recently prescribed Creon, but has not been able to get this due to it being out of stock. Since admission, she has had a lipase of 440. No abdominal imaging performed during this hospitalization. Allergies Allergy/AdvReac Type Severity Reaction Status Date / Time clindamycin Allergy Intermediate muscle Verified 06/04/24 20:11 aches/metal taste in mouth Penicillins Allergy Unknown UNKNOWN, Verified 06/04/24 20:11 CHILD ALLERGY doxycycline AdvReac Mild Metallic Verified 06/04/24 20:11 Taste Home Medications Medication Instructions Recorded Confirmed Type duloxetine 60 mg capsule,delayed 60 mg PO QAM 03/01/19 06/15/24 History release (Cymbalta) fluticasone propionate 50 2 spray intranasal DAILY PRN 08/14/20 06/15/24 History mcg/actuation nasal Allergy Symptoms spray,suspension loratadine 10 mg tablet (Claritin) 10 mg PO QAM PRN Allergic Symptoms 08/14/20 06/15/24 History trazodone 100 mg tablet 100 mg PO HS 06/26/22 06/15/24 History ondansetron 4 mg disintegrating 4 mg PO Q6H PRN nausea and 07/20/23 06/15/24 Rx tablet vomiting #12 tabs buspirone 15 mg tablet 15 mg PO AMHS 05/11/24 06/15/24 History pantoprazole 40 mg tablet,delayed 40 mg PO QAM 05/11/24 06/15/24 History release oxycodone 5 mg tablet 5 mg PO Q4H PRN pain #7 tabs 05/15/24 06/15/24 Rx famotidine 20 mg tablet 20 mg PO HS 06/04/24 06/15/24 History nlgjxc-fdftoxnm-ikaritm 2 cap PO .SEE COMPLEX 06/15/24 06/15/24 History 24,000-76,000-120,000 unit capsule,delayed rel (Creon) meloxicam 7.5 mg tablet 7.5 mg PO BID PRN Pain 06/15/24 06/15/24 History Patient History Medical History History of stomach ulcers Depression Anxiety Surgical History History of colonoscopy History of hysterectomy with unilateral oophorectomy d/t endometriosis (right removed) History of bilateral tubal ligation History of dilatation and curettage History of esophagogastroduodenoscopy (EGD) History of tooth extraction Family History Mother Family history of reaction to anesthesia SLOW TO WAKE UP Diabetes Lung cancer Father Cerebral aneurysm Social History Smoking Status: Never smoker Second Hand Exposure: No; Do You Dip or Chew Tobacco: No; Hx Alcohol Use: No Hx Substance Use: Yes Last Used Substance: Hours (ago) Substance Use Type Other:: Medical Marijuana Preferred Language: Spanish Communication Ability: Effective Director Of Materials Required: No Beliefs That Will Affect Care: None marital status: Single Current Living Situation: Spouse Current Living Situation Comment: Lives with fiance and DAUGHTER current occupational status: unemployed and disabled current occupation: HAS NOT WORKED 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 How many Children do You have: 2 Other Information That Helps Us Care for You: No Feels Safe at Home: Yes Safety Concerns: Feels Safe At This Time during the past year weight has: decreased > 10 lbs Assistive Devices: None Review of Systems Constitutional: no fever and no chills Gastrointestinal: + abdominal pain and + nausea; no consti pation, no diarrhea/loose stools and no blood in stools Physical Exam Constitutional: well developed Respiratory: normal respiratory effort Gastrointestinal (Abdomen): normal bowel sounds, soft, nontender, no hepatosplenomegaly Psychiatric: Orientation: alert and oriented x 3 Results & Data Vital Signs (Past 12 Hours) Vital Signs Temp Pulse Resp BP Pulse Ox O2 Del Method 06/16/24 08:22 36.5 C 50 L 18 130/83 95 Room Air 06/15/24 22:57 36.7 C 56 L 16 140/73 100 Room Air PG Care Time/CCT Total # of Minutes Spent Total Time Spent with Patient: Total time spent is greater than 50% in coordination of care (as documented) at patient's floor/unit and/or counseling patient: Coding Level of Care Code 15513 IN/OBS CONSULT LVL 4,60M Diagnoses Abdominal pain R10.13 Abdominal location: epigastric (1) Abdominal pain Abdominal location: epigastric Qualified Code(s): R10.13 - Epigastric pain
[2024-06-16] MEDS: OPTIRAY 320 100ml IV ONE (11:06)
--- NOTE | 2024-06-16 11:15 | CT Scan Report ---
CT abdomen w IV con CLINICAL HISTORY: Concern for recurrent pancreatitis COMPARISON STUDY: 06/04/2024 FINDINGS: Liver, spleen, and adrenal glands are unremarkable. Kidneys show no hydronephrosis. There i s a stable well-positioned pancreatic stent. No significant inflammation seen at the pancreas. No per ipancreatic fluid or pseudocyst seen. Pancreas enhances normally. IMPRESSION: No evidence of acute pancreatitis or pseudocyst seen. Pancreatic stent remains well posi tioned. ACT 112: Negative or not required by law. Electronically signed by: Al Vazquez M.D. 06/16/2024 11:14 AM
--- NOTE | 2024-06-16 12:25 | Hospitalist Progress Note ---
Date of Service June 16, 2024 Assessment & Plan (1) Acute on chronic pancreatitis: (2) Pancreatic divisum: (3) Post-ERCP acute pancreatitis: (4) Irritable bowel syndrome with constipation: (5) Anxiety: (6) Depression: (7) GERD (gastroesophageal reflux disease): Plan: Recurrent pancreatitis H/O pancreatic divisum H/O chronic idiopathic pancreatitis s/p sphincterotomy and stent placement H/O laparoscopic cholecystectomy H/O irritable bowel syndrome-C --CT ABD:No acute findings in the abdomen or pelvis. Pancreatic duct stent with pigtail in the duodenal lumen. Postsurgical changes of cholecystectomy. Mild intra and extrahepatic biliary ductal dilation is nonspecific and can be a common incidental finding following cholecystectomy. Common bile duct measuring up to 1.3 cm in diameter and tapers distally. No obstructing stone or mass is visible in the distal common bile duct. Recommend correlation with biliary enzyme levels. -- Lipase 440 --Patient was recently prescribed Creon which she plans to start when available --Patient denies alcohol use --Continue IV fluids --Clear liquid diet as tolerated --GI consulted Minimize narcotics as able Monitor LFTs -Will check lipid panel Nonalcoholic fatty liver disease GERD S/P failed TIF fundoplication Continue PPI Anxiety/mood disorder stable Continue home medications DVT Px: Lovenox SQ Code Status Full code Admission and Anticipated Discharge Date Admission Date: June 15, 2024 Subjective Patient is seen and examined at bedside Abdominal pain is controlled with medications Denies any nausea, vomiting, chest pain, dyspnea today Poor oral intake No other complaints today Review of Systems Review of Systems: All systems reviewed & are unremarkable except as noted in Subjective Physical Exam Physical Exam: Physical Exam: Vitals signs as noted above General Appearance:Moderately built and nourished, no apparent distress Head: normocephalic, Atraumatic Eyes: normal inspection, EOMI Neck: supple, Trachea midline Respiratory/Chest: Normal breath sounds, CTA, No accessory muscle use Cardiovascular: S1, S2, No murmur Abdomen/GI:Soft, epigastric tender, Bowel sounds present, no guarding or rigidity Extremities/Musculoskeletal:normal inspection, no edema Neurologic/Psych:AAOX3, grossly no focal neurological deficits Skin: normal color, warm Results & Data Results & Data Vital Signs (Past 12 Hours) Vital Signs Temp Pulse Resp BP Pulse Ox O2 Del Method 03/20/25 08:22 36.5 C 50 L 18 130/83 95 Room Air Laboratory Results Short CBC 06/15/24 06/16/24 Range/Units 18:13 08:00 WBC 9.24 5.58 (4.8-10.8) K/ul Hgb 13.6 13.1 (12.0-16.0) g/dl Hct 40.1 38.6 (37.0-47.0) % Plt Count 309 265 (130-400) K/uL BMP 06/15/24 06/16/24 18:13 08:00 Sodium 137 141 Potassium 4.1 4.1 Chloride 102 105 Carbon Dioxide 31 31 BUN 23 14 Creatinine 0.84 0.76 Glucose 93 93 Calcium 9.6 8.9 Liver Function 06/15/24 06/16/24 Range/Units 18:13 08:00 Total Bilirubin 0.4 0.6 (0.2-1.0) mg/dl AST 23 20 (13-39) U/L ALT 39 33 (7-52) U/L Alkaline Phosphatase 78 64 (34-104) U/L Albumin 4.7 4.1 (3.4-5.0) gm/dl Urine 06/15/24 Range/Units 19:37 Urine Color Yellow Urine Appearance Clear (Clear) Urine pH 6.5 (4.5-7.5) Ur Specific [place] 1.012 (1.000-1.030) Urine Protein Negative (Negative) Urine Glucose (UA) Negative (Negative) (6) Depression Depression Type: unspecified Qualified Code(s): F32.A - Depression, unspecified (7) GERD (gastroesophageal reflux disease) Esophagitis presence: without esophagitis Qualified Code(s): K21.9 - Gastro- esophageal reflux disease without esophagitis
[2024-06-16] MEDS: MoRPHine SULFATE 2 MG/ML CARP IV PRN (21:20)
[2024-06-17 08:19] VITALS: BP 143/87; PULSE 56; RESP 16; TEMP 97.9; O2SAT 98
[2024-06-17 08:27] LABS: Albumin Level 3.8 gm/dl (3.4-5.0); BUN Creatinine Ratio 10.8 (10-20); Bilirubin Direct 0.1 mg/dl (0-0.2); Bilirubin,Total 0.6 mg/dl (0.2-1.0); Calcium 8.8 mg/dl (8.6-10.3); Chol HDL Ratio 3.8 (0-5); Creatinine Clr Calc Pharmacy 84.8 ml/min; Potassium 3.9 mmol/L (3.5-5.1); Total Protein 5.8 gm/dl (6.0-8.3)
--- NOTE | 2024-06-17 11:45 | Hospitalist Progress Note ---
Date of Service June 17, 2024 Assessment & Plan (1) Acute on chronic pancreatitis: (2) Pancreatic divisum: (3) Post-ERCP acute pancreatitis: (4) Irritable bowel syndrome with constipation: (5) Anxiety: (6) Depression: (7) GERD (gastroesophageal reflux disease): Plan: Recurrent pancreatitis H/O pancreatic divisum H/O chronic idiopathic pancreatitis s/p sphincterotomy and stent placement H/O laparoscopic cholecystectomy H/O irritable bowel syndrome-C --CT ABD:No acute findings in the abdomen or pelvis. Pancreatic duct stent with pigtail in the duodenal lumen. Postsurgical changes of cholecystectomy. Mild intra and extrahepatic biliary ductal dilation is nonspecific and can be a common incidental finding following cholecystectomy. Common bile duct measuring up to 1.3 cm in diameter and tapers distally. No obstructing stone or mass is visible in the distal common bile duct. Recommend correlation with biliary enzyme levels. -- Lipase 440>>57 --Lipid panel within normal limits --Patient was recently prescribed Creon which she plans to start on discharge --Patient denies alcohol use -- Received IV fluid -- Tolerated low-fat diet -- Appreciate GI input Minimize narcotics as able Monitor LFTs Was scheduled to follow-up with primary gastroenterology on discharge for possible stent removal Nonalcoholic fatty liver disease GERD S/P failed TIF fundoplication Continue PPI Anxiety/mood disorder stable Continue home medications DVT Px: Lovenox SQ Code Status Full code Disposition Home Admission and Anticipated Discharge Date Admission Date: June 15, 2024 Subjective Patient is seen and examined at bedside States doing well today Abdominal pain resolved Tolerating low-fat diet No other complaints today Eager to get discharged today Denies any nausea, vomiting, chest pain, dyspnea today Review of Systems Review of Systems: All systems reviewed & are unremarkable except as noted in Subjective Physical Exam Physical Exam: Physical Exam: Vitals signs as noted above General Appearance:Moderately built and nourished, no apparent distress Head: normocephalic, Atraumatic Eyes: normal inspection, EOMI Neck: supple, Trachea midline Respiratory/Chest: Normal breath sounds, CTA, No accessory muscle use Cardiovascular: S1, S2, No murmur Abdomen/GI:Soft, mild tender, Bowel sounds present, no guarding or rigidity Extremities/Musculoskeletal:normal inspection, no edema Neurologic/Psych:AAOX3, grossly no focal neurological deficits Skin: normal color, warm Results & Data Results & Data Vital Signs (Past 12 Hours) Vital Signs Temp Pulse Resp BP Pulse Ox O2 Del Method 06/17/24 08:16 36.6 C 56 L 16 143/87 H 98 Room Air Laboratory Results [facility] 06/17/24 06:46 Sodium 141 Potassium 3.9 Chloride 106 Carbon Dioxide 33 H BUN 9 Creatinine 0.83 Glucose 91 Calcium 8.8 Liver Function 06/17/24 Range/Units 06:46 Total Bilirubin 0.6 (0.2-1.0) mg/dl Direct Bilirubin 0.1 (0-0.2) mg/dl AST 19 (13-39) U/L ALT 31 (7-52) U/L Alkaline Phosphatase 61 (34-104) U/L Albumin 3.8 (3.4-5.0) gm/dl (6) Depression Depression Type: unspecified Qualified Code(s): F32.A - Depression, unspecified (7) GERD (gastroesophageal reflux disease) Esophagitis presence: without esophagitis Qualified Code(s): K21.9 - Gastro- esophageal reflux disease without esophagitis
--- NOTE | 2024-06-17 11:53 | Discharge Summary ---
Date of Service June 17, 2024 Admission HPI Per Admitting Provider Patient is a 38-year-old female with PMH recurrent pancreatitis, pancreatic divisum, history ERCP with pancreatic stent placement on 05/10/[address] Garcia, IBS, fatty liver, depression, anxiety, medical marijuana use presented to ER with complaint of abdominal pain x 1 day. Per inpatient chart review patient with multiple admissions in the past month for pancreatitis that occurred after ERCP and pancreatic stent placement. Most recent hospital admission on 06/04/2024-06/07/2024 for acute on chronic pancreatitis. 05/17/2024 hospitalization there was concern for possible necrotizing pancreatitis on MRCP and patient was transferred to [facility] and did not require further surgical intervention. During these hospitalizations patient has been managed conservatively with bowel rest, IV fluids and pain control. Upon discharge on 06/07/2024 patient was tolerating oral diet and her lipase had improved to 107 from 393 on admission. Patient reports was doing well. She has been taking meloxicam twice a day. Last night started with epigastric pain radiating to back after eating. She reports this pain feels like her prior episodes of pancreatitis. Stopped eating and has been attempting to push fluids. Having nausea. Denies any vomiting. Reports took oxycodone for breakthrough pain without relief. Denies noted fever but has been feeling chilled. Had loose BM this morning. Follows with Alona GAYLE. Yesterday she was prescribed Creon 2 capsules 3 times daily with meals and 1 capsule with snacks, however states pharmacy did not have in stock so has not started it yet. Denies HAMM, dizziness, neck pain, CP, SOB, cough, sore throat, rhinorrhea, extremity edema, rashes, urinary symptoms. Admission Exam Per Admitting Provider General: no distress, WDWN Head: normocephalic, atraumatic Eyes: conjunctiva non-injected, anicteric ENT: normal inspection external ears, nose, mucous membranes moist Neck: supple, trachea midline, non-tender Lungs: clear, no respiratory distress, no wheezing/rhonchi/rales CV: RRR, no murmur, no pretibial edema Abd: normal BS, soft, +tender to palpation epigastric region Ext: no cyanosis, no calf tenderness Neuro: A&O x 3, no focal deficits noted, normal affect Skin: warm, dry Principal Diagnosis Recurrent pancreatitis Discharge Data Allergies Allergy/AdvReac Type Severity Reaction Status Date / Time clindamycin Allergy Intermediate muscle Verified 06/04/24 20:11 aches/metal taste in mouth Penicillins Allergy Unknown UNKNOWN, Verified 06/04/24 20:11 CHILD ALLERGY doxycycline AdvReac Mild Metallic Verified 06/04/24 20:11 Taste Consultations 06/15/24 20:05 ED Decision to Admit Stat 06/15/24 22:56 Consult Gastroenterology Routine Procedures Performed Laboratory Results WBC 5.58 K/ul (4.8-10.8) 06/16/24 08:00 RBC 4.15 M/uL (4.20-5.40) L 06/16/24 08:00 Hgb 13.1 g/dl (12.0-16.0) 06/16/24 08:00 Hct 38.6 % (37.0-47.0) 06/16/24 08:00 MCV 93.0 fL (80.0-100.0) 06/16/24 08:00 MCH 31.6 pg (25.0-34.0) 06/16/24 08:00 MCHC 33.9 g/dL (32.0-36.0) 06/16/24 08:00 RDW Std Deviation 43.9 fL (36.4-46.3) 06/16/24 08:00 RDW Coeff of Leopoldo 12.9 % (11.5-14.5) 06/16/24 08:00 Plt Count 265 K/uL (130-400) 06/16/24 08:00 MPV 8.8 fL (9.4-12.4) L 06/16/24 08:00 Immature Gran % (Auto) 0.2 % 06/16/24 08:00 Neut % (Auto) 52.0 % 06/16/24 08:00 Lymph % (Auto) 34.2 % 06/16/24 08:00 [place] % (Auto) 8.4 % 06/16/24 08:00 Eos % (Auto) 4.3 % 06/16/24 08:00 Baso % (Auto) 0.9 % 06/16/24 08:00 Neut # (Auto) 2.90 K/uL (1.40-6.50) 06/16/24 08:00 Lymph # (Auto) 1.91 K/uL (1.20-3.40) 06/16/24 08:00 [place] # (Auto) 0.47 K/uL (0.11-0.59) 06/16/24 08:00 Eos # (Auto) 0.24 K/uL (0.00-0.50) 06/16/24 08:00 Baso # (Auto) 0.05 K/uL (0.00-0.20) 06/16/24 08:00 Immature Gran # (Auto) 0.01 K/uL (0.01-0.20) 06/16/24 08:00 Sodium 141 mmol/L (136-145) 06/17/24 06:46 Potassium 3.9 mmol/L (3.5-5.1) 06/17/24 06:46 Chloride 106 mmol/L (98-107) 06/17/24 06:46 Carbon Dioxide 33 mmol/L (21-32) H 06/17/24 06:46 Anion Gap 2 (3-11) L 06/17/24 06:46 BUN 9 mg/dl (6-23) 06/17/24 06:46 Creatinine 0.83 mg/dl (0.6-1.2) 06/17/24 06:46 Est Cr Clr Drug Dosing 84.8 ml/min 06/17/24 06:46 eGFR 91.91 06/17/24 06:46 BUN/Creatinine Ratio 10.8 (10-20) 06/17/24 06:46 Glucose 91 mg/dl (70-99(Fasting)) 06/17/24 06:46 Calcium 8.8 mg/dl (8.6-10.3) 06/17/24 06:46 Total Bilirubin 0.6 mg/dl (0.2-1.0) 06/17/24 06:46 Direct Bilirubin 0.1 mg/dl (0-0.2) 06/17/24 06:46 AST 19 U/L (13-39) 06/17/24 06:46 ALT 31 U/L (7-52) 06/17/24 06:46 Alkaline Phosphatase 61 U/L (34-104) 06/17/24 06:46 Total Protein 5.8 gm/dl (6.0-8.3) L 06/17/24 06:46 Albumin 3.8 gm/dl (3.4-5.0) 06/17/24 06:46 Globulin 2.1 gm/dl (2.5-4.0) L 06/16/24 08:00 Albumin/Globulin Ratio 2.0 (0.9-2) 06/16/24 08:00 Triglycerides 64 mg/dl (0-150) 06/17/24 06:46 Cholesterol 149 mg/dl (0-200) 06/17/24 06:46 LDL Cholesterol, Calc 97 mg/dl 06/17/24 06:46 VLDL Cholesterol, Calc 13 mg/dl (0-30) 06/17/24 06:46 HDL Cholesterol 39 mg/dl 06/17/24 06:46 Cholesterol/HDL Ratio 3.8 (0-5) 06/17/24 06:46 Lipase 57 U/L (11-82) 06/17/24 06:46 Urine Color Yellow 06/15/24 19:37 Urine Appearance Clear (Clear) 06/15/24 19:37 Urine pH 6.5 (4.5-7.5) 06/15/24 19:37 Ur Specific [place] 1.012 (1.000-1.030) 06/15/24 19:37 Urine Protein Negative (Negative) 06/15/24 19:37 Urine Glucose (UA) Negative (Negative) 06/15/24 19:37 Urine Ketones Negative (Negative) 06/15/24 19:37 Urine Blood Negative (Negative) 06/15/24 19:37 Urine Nitrite Negative (Negative) 06/15/24 19:37 Urine Bilirubin Negative (Negative) 06/15/24 19:37 Urine Urobilinogen Negative (Negative) 06/15/24 19:37 Ur Leukocyte Esterase Negative (Negative) 06/15/24 19:[address] 06/16/24 09:23 CT abdomen w IV con CLINICAL HISTORY: Concern for recurrent pancreatitis COMPARISON STUDY: 06/04/2024 FINDINGS: Liver, spleen, and adrenal glands are unremarkable. Kidneys show no hydronephrosis. There is a stable well-positioned pancreatic stent. No significant inflammation seen at the pancreas. No peripancreatic fluid or pseudocyst seen. Pancreas enhances normally. IMPRESSION: No evidence of acute pancreatitis or pseudocyst seen. Pancreatic stent remains well positioned. ACT 112: Negative or not required by law. Electronically signed by: Al Vazquez M.D. 06/16/2024 11:14 AM Ordered Studies 06/16/24 09:23 CT abdomen w IV con Routine Hospital Course (1) Acute on chronic pancreatitis: (2) Pancreatic divisum: (3) Post-ERCP acute pancreatitis: (4) Irritable bowel syndrome with constipation: (5) Anxiety: (6) Depression: (7) GERD (gastroesophageal reflux disease): Recurrent pancreatitis H/O pancreatic divisum H/O chronic idiopathic pancreatitis s/p sphincterotomy and stent placement H/O laparoscopic cholecystectomy H/O irritable bowel syndrome-C --CT ABD:No acute findings in the abdomen or pelvis. Pancreatic duct stent with pigtail in the duodenal lumen. Postsurgical changes of cholecystectomy. Mild intra and extrahepatic biliary ductal dilation is nonspecific and can be a common incidental finding following cholecystectomy. Common bile duct measuring up to 1.3 cm in diameter and tapers distally. No obstructing stone or mass is visible in the distal common bile duct. Recommend correlation with biliary enzyme levels. -- Lipase 440>>57 --Lipid panel within normal limits --Patient was recently prescribed Creon which she plans to start on discharge --Patient denies alcohol use -- Received IV fluid -- Tolerated low-fat diet -- Appreciate GI input Minimize narcotics as able Monitor LFTs Was scheduled to follow-up with primary gastroenterology on discharge for possible stent removal Nonalcoholic fatty liver disease GERD S/P failed TIF fundoplication Continue PPI Anxiety/mood disorder stable Continue home medications DVT Px: Lovenox SQ Code Status Full code Disposition Home Total Time Total Time Spent Total Time Spent (In Minutes): 45 minutes Discharge Plan Discharge Items Patient Disposition: Home - Self-Care Reason For Visit: PANCREATITIS Discharge Diagnosis: Recurrent pancreatitis Activity: Per Instructions section Exercise/Sports: Gradually increase as tolerated Non-emergency contact: Primary Care Provider and [employer] Feeder Call non-emergency contact if: you have any medication questions, your symptoms worsen, your pain is concerning for you and you have a fever Follow-up/Referrals: Williams Hauser MD [Primary Care Provider] - 06/21/24 10:20 am (Date & Time 06/21/2024 10:20 AM Provider: Williams Hauser III, MD [facility] ) Diet: Low Fat Addtl Attending Provider Instructions: Follow-up with your primary care physician Dr. Hauser on 06/21/2024 10:20 AM Follow-up with your shellfish shucker next week as scheduled --Your pantoprazole is increased to 40 mg twice a day as recommended by your shellfish shucker. Further recommendations to be determined on follow-up. Seek immediate medical attention if your symptoms reoccur or worsen Please review medication list provided on discharge for any medication changes as instructed. Please call if you have any questions or problems. You can reach a [facility] hospitalist on duty at [facility] 24 hours a day by calling [phone] Pending Studies at Discharge: No Stand-Alone Forms: My [facility], Smoking Cessation Medications and DC Order Prescriptions: Continued duloxetine [Cymbalta] 60 mg Capsule,Delayed Release(Dr/Ec) 60 mg PO QAM trazodone 100 mg tablet 100 mg PO HS fluticasone propionate 50 mcg/actuation [place],Suspension 2 spray INTRANASAL DAILY PRN (Reason: Allergy Symptoms) Rx Instructions: as needed loratadine [Claritin] 10 mg Tablet 10 mg PO QAM PRN (Reason: Allergic Symptoms) buspirone 15 mg tablet 15 mg PO AMHS oxycodone 5 mg Tablet 5 mg PO Q4H PRN (Reason: pain) Qty: 7 0RF ondansetron 4 mg tablet,disintegrating 4 mg PO Q6H PRN (Reason: nausea and vomiting) Qty: 12 0RF famotidine 20 mg Tablet 20 mg PO HS meloxicam 7.5 mg tablet 7.5 mg PO BID PRN (Reason: Pain) Creon 24,000-76,000 -120,000 unit capsule,delayed release(DR/EC) 2 cap PO .SEE COMPLEX Rx Instructions: Take 2 capsules by mouth with breakfast, lunch, dinner, and 1 capsule with snacks. Max caps 9 capsules daily. Per [facility] Pharmacist; new RX not started yet Changed pantoprazole 40 mg tablet,delayed release (DR/EC) 40 mg PO BID Qty: 60 0RF Discharge Orders: Discharge Order (Routine); Ordered 06/17/24 Ordered By: Hussein Zambrano Admission Data Admit Date/Time: 06/15/24 20:55 Attending Provider: Hussein Zambrano Admit Provider: Mike Chu Primary Care Provider: Williams Hauser Other Providers: Mike Chu; Patti Franklin; Gamaliel Wolff; Cammie Zapata; Kayce Avila; Manju Childs; Phyllis Rodas; Larry Serrato; Jaime Power; Shilpi Samuels; Paolo Wynne; Christina Sumner; Abby Burroughs; Desiree Rojas; Renate Harmon; Ellie Garcia; Sb Pierre; Myranda Mandujano; Driss Dixon Jr; Joey Cochran.; Kobe Lujan; Alonso Garcia; Julio César Saavedra; Dionne Abebe; Antony Gardner I; Awa Watters; Itz Cotter; Raheem Talley
--- NOTE | 2024-06-17 11:57 | Gastroenterology Progress Note ---
<Statement entered by Raheem Talley MD - 06/17/24 15:22> I have reviewed the history, physical exam, lab and imaging findings as dictated by the mid-level provider, made any necessary modifications, and agree with the stated assessment and recommendations. Patient discharged. A total of 20 minutes was spent in the review, decision making and discussion of this case. Raheem Talley MD Date of Service June 17, 2024 Assessment & Plan (1) Acute on chronic pancreatitis: Plan: Symptoms resolved. -Continue low fat diet -Begin Creon as directed by her outpatient GI -Proceed with appointment next week for pancreatic stent removal Admission and Anticipated Discharge Date Admission Date: June 15, 2024 Subjective Patient is a 38 yo female with history of chronic pancreatitis. She notes resolution of her pain today. She now has an appointment next week to remove her pancreatic stent. No further new complaints today. Review of Systems Gastrointestinal: no abdominal pain Physical Exam Gastrointestinal (Abdomen): normal bowel sounds, soft, nontender, no hepatosplenomegaly Results & Data Results & Data Vital Signs (Past 12 Hours) Vital Signs Temp Pulse Resp BP Pulse Ox O2 Del Method 06/17/24 08:16 36.6 C 56 L 16 143/87 H 98 Room Air PG Care Time/CCT Total # of Minutes Spent Total Time Spent with Patient: Total time spent is greater than 50% in coordination of care (as documented) at patient's floor/unit and/or counseling patient: Coding Level of Care Code 67783 SUB INP/OBS CARE 2/35MIN Diagnoses Acute on chronic pancreatitis K85.90; K86.1
== END 2024-06-17 12:55 | disposition home or self-care (01) | DRG 440 ==
LOC: ED 16:46 → 3N 20:55

== ENCOUNTER 2025-02-21 15:57 | Observation (INO) ==
--- NOTE | 2025-02-21 16:17 | Emergency Department Note ---
Impression & Plan Left upper quadrant abdominal pain, Pancreatitis, Vomiting ED Provider Note NAME: BRYAN CARRANZA AGE: 39 SEX: F : 1985 ARRIVES VIA: Walk-In INFORMANT: [Patient] ED PROVIDER(S): [Rony Castellon MD] CHIEF COMPLAINT: GI assessment HISTORY OF PRESENT ILLNESS: The patient is a 39-year-old female who presents to the ER with a few days of epigastric and left upper quadrant abdominal pain. The pain seems to come and go and the patient is concerned that this could be a pancreatitis flare. The patient states that in addition, she was recently told that she had blood in her stool. She is scheduled for an endoscopy and colonoscopy in about a month. The patient has not had fever or increased cough. No urinary complaints. She has noticed some nausea today and did vomit 1 time, the vomit was the color of bile. Patient has been using some oxycodone at home for pain relief. In addition to the left lower quadrant pain, she has had some cramping in the lower mid abdomen as if she is having a menstrual cycle although, in the past, she has had a hysterectomy. Of note, the patient does admit to some increased stress, her mother last week. PMHx/PSHx/Social Hx: See Below PHYSICAL EXAM: GENERAL: Patient is in no acute distress. HEENT: No acute trauma, normocephalic atraumatic, mucous membranes moist, no nasal congestion. NECK: No stridor, no adenopathy, no meningismus, trachea is midline. LUNGS: Clear to auscultation bilaterally, no wheeze, no rhonchi, breath sounds equal. HEART: Without murmurs gallops or rubs, regular rate and rhythm. ABDOMEN: Soft, mildly tender in the epigastrium, no abdominal distention. EXTREMITIES: No cyanosis, full range of motion of all the joints without pain or difficulty. NEUROLOGIC: Oriented x 3, no acute motor or sensory deficits, no focal weakness. SKIN: No jaundice, no diaphoresis. DIFFERENTIAL DIAGNOSIS: Pancreatitis flare, gastroenteritis, reflux, UTI, musculoskeletal pain, foodborne or viral illness, among others. EMERGENCY DEPARTMENT PROCEDURES: MEDICAL DECISION MAKING: There is no leukocytosis or concerning anemia. There is a normal platelet count. No bandemia. No renal failure or significant electrolyte abnormality. No concerning liver enzyme elevation. Lipase is mildly elevated consistent with an early case of pancreatitis. Urinalysis does not show findings of infection. Abdominal and pelvis CT did not show any acute surgical pathology, no pancreatic inflammation. On exam, the patient was somewhat tender in the epigastrium. She was not febrile or toxic. Patient received IV saline, 1.5 L. She was given IV Phenergan, and IV Zofran. She received IV morphine and eventually, a dose of IV Dilaudid. Despite the above treatment, the patient has been nauseated and has vomited a few times here in the ED. The patient appears to have a mild case of pancreatitis, she has gone through this before. Given the persistent vomiting and the lack of response to treatment here in the ED, I do think a hospital stay and further workup would be warranted. I spoke with the patient and case management. The on-call hospitalist was consulted. Prior/Outside records/notes reviewed: Discharge summary note from 06/17/2024 describing her presentation, hospital course and discharge plan. Imaging/x-ray results per my interpretation: Chronic Medical/Social conditions affecting care: History of chronic pancreatitis. Care/Management discussed with: Case management and the on-call hospitalist. Level of care consideration(s): After review of the information above and other included data: --I believe the patient requires escalation of care to admission DISPOSITION: Admission Past Med/Surg History Problem List Vomiting (Acute) Pancreatitis (Acute) Left upper quadrant abdominal pain (Acute) Acute pancreatitis (Acute) Irritable bowel syndrome with constipation Elevated lipase (Acute) Acute on chronic pancreatitis (Acute) Abdominal pain (Acute) Pancreatitis (Acute) Pancreatic divisum Post-ERCP acute pancreatitis Leukocytosis (Acute) Pancreatitis (Acute) Abdominal pain (Acute) Enteritis (Acute) Pancreatitis (Acute) Epigastric abdominal pain (Acute) GERD (gastroesophageal reflux disease) Medical marijuana use Abdominal pain, acute (Acute) Acute pancreatitis (Acute) Pain at surgical site H/O umbilical hernia repair (02/20/21) Open Umbilical Hernia Repair- Al Lizama DO, FACS 02/20/2021 Obesity (BMI 30.0-34.9) Hx laparoscopic cholecystectomy 08/22/2020 Dr. Garvin Umbilical hernia Anemia Allergic rhinitis Endometriosis (Chronic) Chronic pelvic pain in female S/P laparoscopic hysterectomy S/P unilateral salpingo-oophorectomy Encounter for pre-operative examination Medical History History of stomach ulcers Anxiety Surgical History History of colonoscopy History of hysterectomy with unilateral oophorectomy d/t endometriosis (right removed) History of bilateral tubal ligation History of dilatation and curettage History of esophagogastroduodenoscopy (EGD) History of tooth extraction Family History Mother Family history of reaction to anesthesia SLOW TO WAKE UP Diabetes Lung cancer Father Cerebral aneurysm Social History Smoking Status: Former smoker Second Hand Exposure: No; Do You Dip or Chew Tobacco: No; Hx Alcohol Use: No Hx Substance Use: No Preferred Language: Ukrainian Communication Ability: Effective Jewel Bearing Maker Required: No Beliefs That Will Affect Care: None marital status: Single Current Living Situation: Significant Other Current Living Situation Comment: Lives with fiance and DAUGHTER current occupational status: unemployed and disabled current occupation: HAS NOT WORKED 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 How many Children do You have: 2 Other Information That Helps Us Care for You: No Feels Safe at Home: Yes during the past year weight has: decreased > 10 lbs Assistive Devices: None Allergies Allergies Allergy/AdvReac Type Severity Reaction Status Date / Time clindamycin Allergy Intermediate muscle Verified 02/21/25 20:06 aches/metal taste in mouth Penicillins Allergy Unknown UNKNOWN, Verified 02/21/25 20:06 CHILD ALLERGY doxycycline AdvReac Mild Metallic Verified 02/21/25 20:06 Taste Home Meds Home Medications Medication Instructions Recorded Confirmed trazodone 100 mg tablet 100 mg PO HS 06/26/22 02/21/25 famotidine 20 mg tablet 20 mg PO HS 06/04/24 02/21/25 Natural Supplement 1 dose PO QAM 02/21/25 02/21/25 ashwagandha extract 500 mg capsule 500 mg PO DAILY 02/21/25 02/21/25 buspirone 15 mg tablet 15 mg PO AMHS 02/21/25 02/21/25 duloxetine 60 mg capsule,delayed 60 mg PO DAILY 02/21/25 02/21/25 release [id number](pork)24,000-76,000-120,000 1 cap PO .WITH MEALS &SNACKS 02/21/25 02/21/25 unit capsule,del rel (Creon) melatonin 10 mg chewable tablet 10 mg PO HS 02/21/25 02/21/25 oxycodone 5 mg tablet 10 mg PO QPM 02/21/25 02/21/25 pantoprazole 40 mg tablet,delayed 40 mg PO AMPM 02/21/25 02/21/25 release polyethylene glycol 3350 17 17 g PO QAM 02/21/25 02/21/25 gram/dose oral powder Previous Rx's Medication Instructions Recorded ondansetron 4 mg disintegrating 4 mg PO Q6H PRN nausea and 07/20/23 tablet vomiting #12 tabs Results & Data (ED) Vital Signs Vital Signs - 24 hr 02/21/25 16:01 02/21/25 16:30 02/21/25 16:30 Temperature 36.6 C Temperature Source Skin Pulse Rate 80 60 Pulse Rate [Apical] 60 Respiratory Rate 20 18 18 Blood Pressure 130/82 Blood Pressure [Left Arm] 134/98 Blood Pressure Mean 98 Blood Pressure Mean [Left Arm] 110 Pulse Oximetry 99 98 98 Oxygen Delivery Method Room Air Room Air Sepsis Recent Fever Within 48 Hours No Sepsis New/Unexplained Change in Mental Status N/A Sepsis Action Taken by Nursing No Action Required 02/21/25 18:00 Temperature Temperature Source Pulse Rate Pulse Rate [Apical] 66 Respiratory Rate 16 Blood Pressure Blood Pressure [Left Arm] 124/76 Blood Pressure Mean Blood Pressure Mean [Left Arm] 92 Pulse Oximetry 98 Oxygen Delivery Method Room Air Sepsis Recent Fever Within 48 Hours Sepsis New/Unexplained Change in Mental Status Sepsis Action Taken by Shelter Medications Current Medication List: was personally reviewed by me Laboratory Data Attestation: I reviewed the patient's lab results. 02/21/25 21:31 02/21/25 16:20 Lab Results 02/21/25 Range/Units 16:20 WBC 8.48 (4.8-10.8) K/ul RBC 4.96 (4.20-5.40) M/uL Hgb 15.8 (12.0-16.0) g/dL Hct 45.9 (37.0-47.0) % MCV 92.5 (80.0-100.0) fL MCH 31.9 (25.0-34.0) pg MCHC 34.4 (32.0-36.0) g/dL RDW Std Deviation 40.7 (36.4-46.3) fL RDW Coeff of Leopoldo 11.9 (11.5-14.5) % Plt Count 341 (130-400) K/uL MPV 8.3 L (9.4-12.4) fL Immature Gran % (Auto) 0.4 % Neut % (Auto) 76.8 % Lymph % (Auto) 16.2 % [place] % (Auto) 5.4 % Eos % (Auto) 0.6 % Baso % (Auto) 0.6 % Neut # (Auto) 6.52 H (1.40-6.50) K/uL Lymph # (Auto) 1.37 (1.20-3.40) K/uL [place] # (Auto) 0.46 (0.11-0.59) K/uL Eos # (Auto) 0.05 (0.00-0.50) K/uL Baso # (Auto) 0.05 (0.00-0.20) K/uL Immature Gran # (Auto) 0.03 (0.01-0.20) K/uL Sodium 139 (136-145) mmol/L Potassium 3.8 (3.5-5.1) mmol/L Chloride 101 (98-107) mmol/L Carbon Dioxide 31 (21-32) mmol/L Anion Gap 7 (3-11) BUN 17 (6-23) mg/dl Creatinine 0.83 (0.6-1.2) mg/dl Est Cr Clr Drug Dosing 84.7 ml/min eGFR 91.34 BUN/Creatinine Ratio 20.5 H (10-20) Glucose 107 H (70-99(Fasting)) mg/dl Calcium 9.8 (8.6-10.3) mg/dl Total Bilirubin 0.4 (0.2-1.0) mg/dl AST 22 (13-39) U/L ALT 19 (7-52) U/L Alkaline Phosphatase 70 (34-104) U/L Total Protein 8.3 (6.0-8.3) gm/dl Albumin 4.9 (3.4-5.0) gm/dl Globulin 3.4 (2.5-4.0) gm/dl Albumin/Globulin Ratio 1.4 (0.9-2) Lipase 88 H (11-82) U/L Urine Color Yellow Urine Appearance Clear (Clear) Urine pH 7.0 (4.5-7.5) Ur Specific [place] 1.006 (1.000-1.030) Urine Protein Negative (Negative) Urine Glucose (UA) Negative (Negative) Urine Ketones Negative (Negative) Urine Blood Negative (Negative) Urine Nitrite Negative (Negative) Urine Bilirubin Negative (Negative) Urine Urobilinogen Negative (Negative) Ur Leukocyte Esterase Negative (Negative) Urine Comment Administered Medications Buspirone HCl (Buspirone 15 Mg Tab) 15 mg PO AMHS ALEX Stop: 03/23/25 21:14 Last Admin: 02/21/25 21:47 Dose: 15 mg Documented By: RICO Lactated Ringer's (Lr) 1,000 mls @ 100 mls/hr IV .Q10H ONE Stop: 02/22/25 07:08 Last Admin: 02/21/25 22:04 Dose: 100 mls/hr Documented By: HENRY Oxycodone HCl (Oxycodone Hcl Ir 5 Mg Tab (Immediate Release)) 5 - 10 mg PO QID PRN PRN Reason: Pain Stop: 03/07/25 19:47 Last Admin: 02/21/25 21:46 Dose: 10 mg Documented By: RICO Trazodone HCl (Trazodone Hcl 100 Mg Tab) 100 mg PO HS ALEX Stop: 03/23/25 21:09 Last Admin: 02/21/25 21:48 Dose: 100 mg Documented By: RICO Discontinued Medications Hydromorphone HCl (Hydromorphone Inj 0.5 Mg/0.5 Ml Syr) 0.5 mg IV NOW STA Stop: 02/21/25 17:52 Last Admin: 02/21/25 18:14 Dose: 0.5 mg Documented By: [id number] Sodium Chloride (Nss) 500 mls @ 999 mls/hr IV .Q31M STA Stop: 02/21/25 16:35 Last Infusion: 02/21/25 17:05 Dose: Infused Documented By: [id number] Admin: 02/21/25 16:19 Dose: 999 mls/hr Documented By: [id number] Promethazine HCl (Phenergan) 12.5 mg in 50.5 mls @ 202 mls/hr IV NOW STA Stop: 02/21/25 19:41 Last Infusion: 02/21/25 20:07 Dose: Infused Documented By: [id number] Admin: 02/21/25 19:33 Dose: 202 mls/hr Documented By: [id number] Sodium Chloride (Nss) 1,000 mls @ 999 mls/hr IV .Q1H1M ONE Stop: 02/21/25 20:27 Last Infusion: 02/21/25 20:52 Dose: Infused Documented By: [id number] Admin: 02/21/25 19:33 Dose: 999 mls/hr Documented By: [id number] Pantoprazole Sodium 80 mg/ (Dextrose) 120 mls @ 480 mls/hr IV ONE STA Stop: 02/21/25 21:04 Last Infusion: 02/21/25 22:06 Dose: Infused Documented By: Admin: 02/21/25 21:44 Dose: 480 mls/hr Documented By: RICO Ioversol (Optiray 320 100ml) 94 ml IV ONCE ONE Stop: 02/21/25 18:24 Last Admin: 02/21/25 18:23 Dose: 94 ml Documented By: [email or web address] Morphine Sulfate (Morphine Sulfate 4 Mg/Ml 1 Ml Carp\Vial) 4 mg IV NOW STA Stop: 02/21/25 16:14 Last Admin: 02/21/25 16:19 Dose: 4 mg Documented By: [id number] Ondansetron HCl (Ondansetron Inj 2 Mg/Ml 2 Ml Vial) 4 mg IV NOW STA Stop: 02/21/25 16:14 Last Admin: 02/21/25 16:19 Dose: 4 mg Documented By: [id number] Imaging Data Radiologist's Impression: Abdomen/Pelvis CT 02/21/25 16:13 Clinical History: Pain. Pancreatitis Technique: Axial computed tomography images were obtained of the abdomen and pelvis after the administration of intravenous and oral contrast. Comparison is made to the prior CT dated 06/16/2024. Findings: The liver is overall of normal size, attenuation, and contour with no sign of cirrhosis or significant fatty infiltration. No liver mass lesion is seen. The portal vein is patent. The gallbladder appears to have been removed. No bile duct dilatation is noted. The spleen is of normal size. No focal splenic lesion is evident. There is no sign of acute pancreatic. There is mild dilatation of the pancreatic duct in the pancreatic neck and proximal pancreatic body, measuring 4 mm. There is abrupt termination of this dilatation within the pancreatic head. No clear pancreatic mass lesion is seen. The previously seen pancreatic duct stent has been removed. The adrenal glands appear unremarkable. No definite renal or proximal ureteral calculi are seen on this contrast-enhanced study. There is no hydronephrosis or perinephric stranding. No renal mass lesion is identified. The aorta is of normal caliber. No abdominal adenopathy is seen. The stomach appears normal. There is no sign of small bowel obstruction. The colon appears unremarkable. The appendix appears normal also. No free intraperitoneal fluid or air is identified. No distal ureteral or bladder calculi are seen. No bladder mass lesion is evident. The iliac arteries are of normal caliber. No pelvic adenopathy is noted. There is a 3.2 cm left ovarian cyst. The uterus has been removed. The lungs bases appear clear. No fracture is identified. No focal osseous lesion is seen Impression: 1. No definite sign of acute pancreatitis 2. Mild pancreatic ductal dilatation that could be due to a benign stricture. The previously seen pancreatic duct stent has been removed. No clear pancreatic mass is identified 3. Left ovarian cyst, likely a benign functional cyst Electronically signed by Joshua Lamb 02-21-2025 6:41 PM Discharge Plan Visit Data Chief Complaint: GI Assessment Stated Complaint: CHRONIC PANCREATITIS, VOMITING YELLOW BILE, PAIN ED Provider: Rony Castellon Discharge Problem: Left upper quadrant abdominal pain, Pancreatitis, Vomiting Patient Disposition: Admitted As Inpatient Condition: Fair Discharge Instructions Interventions: ED Discharge Assessment Last Done: 02/21/25 20:55 Discharge Problem: Pancreatitis Qualifiers: Chronicity: chronic Pancreatitis type: unspecified pancreatitis type Qualified Code(s): K86.1 - Other chronic pancreatitis Vomiting Qualifiers: Vomiting type: unspecified Nausea presence: with nausea Qualified Code(s): R 11.2 - Nausea with vomiting, unspecified
[2025-02-21] MEDS: ONDANSETRON INJ 2 MG/ML 2 ML VIAL IV STA (16:19)
[2025-02-21] MEDS: SODIUM CHLORIDE 0.9% 500 ML IV STA (16:19)
[2025-02-21] MEDS: MoRPHine SULFATE 4 MG/ML 1 ML CARP\\VIAL IV STA (16:19)
[2025-02-21 16:30] LABS: Appearance Urine Clear (Clear); Glucose Urine UA Negative (Negative)
[2025-02-21 16:32] LABS: Hematocrit (blood only) 45.9 % (37.0-47.0); Hemoglobin 15.8 g/dL (12.0-16.0); Immature Granulocytes # (auto) 0.03 K/uL (0.01-0.20); Immature Granulocytes % (auto) 0.4 %; Mean Corpuscular Hemoglobin 31.9 pg (25.0-34.0); Mean Corpuscular Volume 92.5 fL (80.0-100.0); Platelet Count 341 K/uL (130-400); RDW Standard Deviation 40.7 fL (36.4-46.3); Red Blood Count 4.96 M/uL (4.20-5.40); White Blood Count 8.48 K/ul (4.8-10.8)
[2025-02-21 16:46] LABS: Alanine Aminotransferase 19.0 U/L (7-52); Albumin Globulin Ratio 1.4 (0.9-2); Albumin Level 4.9 gm/dl (3.4-5.0); Alkaline Phosphatase 70.0 U/L (34-104); Anion Gap 7.0 (3-11); Bilirubin,Total 0.4 mg/dl (0.2-1.0); Blood Urea Nitrogen 17.0 mg/dl (6-23); Calcium 9.8 mg/dl (8.6-10.3); Carbon Dioxide 31.0 mmol/L (21-32); Chloride 101.0 mmol/L (98-107); Creatinine Clr Calc Pharmacy 84.7 ml/min; Globulin 3.4 gm/dl (2.5-4.0); Glucose 107.0 mg/dl (70-99(Fasting)); Lipase 88.0 U/L (11-82); Potassium 3.8 mmol/L (3.5-5.1); Sodium 139.0 mmol/L (136-145); Total Protein 8.3 gm/dl (6.0-8.3)
[2025-02-21] MEDS: HYDROmorphone INJ 0.5 MG/0.5 ML SYR IV STA (18:14)
[2025-02-21] MEDS: OPTIRAY 320 100ml IV ONE (18:23)
--- NOTE | 2025-02-21 18:42 | CT Scan Report ---
Clinical History: Pain. Pancreatitis Technique: Axial computed tomography images were obtained of the abdomen and pelvis after the administration of intravenous and oral contrast. Comparison is made to the prior CT dated 06/16/2024. Findings: The liver is overall of normal size, attenuation, and contour with no sign of cirrhosis or significant fatty infiltration. No liver mass lesion is seen. The portal vein is patent. The gallbladder appears to have been removed. No bile duct dilatation is noted. The spleen is of normal size. No focal splenic lesion is evident. There is no sign of acute pancreatic. There is mild dilatation of the pancreatic duct in the pancreatic neck and proximal pancreatic body, measuring 4 mm. There is abrupt termination of this dilatation within the pancreatic head. No clear pancreatic mass lesion is seen. The previously seen pancreatic duct stent has been removed. The adrenal glands appear unremarkable. No definite renal or proximal ureteral calculi are seen on this contrast-enhanced study. There is no hydronephrosis or perinephric stranding. No renal mass lesion is identified. The aorta is of normal caliber. No abdominal adenopathy is seen. The stomach appears normal. There is no sign of small bowel obstruction. The colon appears unremarkable. The appendix appears normal also. No free intraperitoneal fluid or air is identified. No distal ureteral or bladder calculi are seen. No bladder mass lesion is evident. The iliac arteries are of normal caliber. No pelvic adenopathy is noted. There is a 3.2 cm left ovarian cyst. The uterus has been removed. The lungs bases appear clear. No fracture is identified. No focal osseous lesion is seen Impression: 1. No definite sign of acute pancreatitis 2. Mild pancreatic ductal dilatation that could be due to a benign stricture. The previously seen pancreatic duct stent has been removed. No clear pancreatic mass is identified 3. Left ovarian cyst, likely a benign functional cyst Electronically signed by Joshua Lamb 02-21-2025 6:41 PM
[2025-02-21] MEDS: SODIUM CHLORIDE 0.9% 1,000 ML IV ONE (19:33)
[2025-02-21] MEDS: PROMETHAZINE 12.5 MG/50.5 ML BAG IV STA (19:33)
[2025-02-21] MEDS ORDERED: ACETAMINOPHEN 500 MG TAB PO PRN (19:48)
--- NOTE | 2025-02-21 20:09 | History & Physical Report ---
Date of Service February 21, 2025 Assessment & Plan (1) Abdominal pain: Plan: Multifactorial ? Recurrent pancreatitis History of pancreatic divisum UGIB, history GERD status post TIF, patient currently hemodynamically stable hx NAFLD anxiety/mood disorder stable past tobacco abuse Admit to medical unit Analgesia, IVF, bowel rest IV PPI GI consult re: recurrent pancreatitis, UGIB N.p.o. after midnight in anticipation of procedure in AM. DVT prophylaxis. SCDs re: GI bleed Full code Patient may request to be allowed to leave hospital for a few hours to attend her mother's interment at 11 AM tomorrow. Text document was generated using [employer] voice recognition software. It may contain grammatical or spelling errors. Kindly contact undersigned for clarification of any documentation item in question. History of Present Illness Chief Complaint: Abdominal pain Primary Care Provider: Williams Hauser MD History obtained from patient and records. Medical history significant for recurrent pancreatitis, pancreatic divisum as per records, NAFLD, GERD status post TIF, IBS constipation predominant, anxiety/mood disorder, past tobacco abuse. Last confinement May 2024 for recurrent pancreatitis. 1 month history of intermittent dark stools associated with home without unusual abdominal pain. No chest pain, no SOB. No OTC NSAID intake. Outpatient FOBT test positive. Outpatient endoscopy by GI specialist scheduled next month. Patient requested PCP for [facility] specialist referral for an earlier schedule. 3 days ago, patient noted achy upper abdominal pain associated with dark stools. Some nausea, no emesis. Episode somewhat reminiscent of pancreatitis attack. Usual constipation symptoms. Some stress from recent demise of mother. No chest pain, no SOB. No fever, no chills. . Medical History as above May 2024 EGD normal esophagus, normal stomach. Plastic pancreatic stent from duodenum removed. 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 Allergies Allergy/AdvReac Type Severity Reaction Status Date / Time clindamycin Allergy Intermediate muscle Verified 02/21/25 20:06 aches/metal taste in mouth Penicillins Allergy Unknown UNKNOWN, Verified 02/21/25 20:06 CHILD ALLERGY doxycycline AdvReac Mild Metallic Verified 02/21/25 20:06 Taste Home Medications Medication Instructions Recorded Confirmed Type trazodone 100 mg tablet 100 mg PO HS 06/26/22 02/21/25 History ondansetron 4 mg disintegrating 4 mg PO Q6H PRN nausea and 07/20/23 02/21/25 Rx tablet vomiting #12 tabs famotidine 20 mg tablet 20 mg PO HS 06/04/24 02/21/25 History Natural Supplement 1 dose PO QAM 02/21/25 02/21/25 History ashwagandha extract 500 mg capsule 500 mg PO DAILY 02/21/25 02/21/25 History buspirone 15 mg tablet 15 mg PO AMHS 02/21/25 02/21/25 History duloxetine 60 mg capsule,delayed 60 mg PO DAILY 02/21/25 02/21/25 History release hheptw-iordlyfj-ehrykq(pork)24,000-76,000-120,000 1 cap PO .WITH MEALS &SNACKS 02/21/25 02/21/25 History unit capsule,del rel (Creon) melatonin 10 mg chewable tablet 10 mg PO HS 02/21/25 02/21/25 History oxycodone 5 mg tablet 10 mg PO QPM 02/21/25 02/21/25 History pantoprazole 40 mg tablet,delayed 40 mg PO AMPM 02/21/25 02/21/25 History release polyethylene glycol 3350 17 17 g PO QAM 02/21/25 02/21/25 History gram/dose oral powder Past Med/Surg History Problem List Vomiting (Acute) Pancreatitis (Acute) Left upper quadrant abdominal pain (Acute) Acute pancreatitis (Acute) Irritable bowel syndrome with constipation Elevated lipase (Acute) Acute on chronic pancreatitis (Acute) Abdominal pain (Acute) Pancreatitis (Acute) Pancreatic divisum Post-ERCP acute pancreatitis Leukocytosis (Acute) Pancreatitis (Acute) Abdominal pain (Acute) Enteritis (Acute) Pancreatitis (Acute) Epigastric abdominal pain (Acute) GERD (gastroesophageal reflux disease) Medical marijuana use Abdominal pain, acute (Acute) Acute pancreatitis (Acute) Pain at surgical site H/O umbilical hernia repair (02/20/21) Open Umbilical Hernia Repair- Al Lizama DO, FACS 02/20/2021 Obesity (BMI 30.0-34.9) Hx laparoscopic cholecystectomy 08/22/2020 Dr. Garvin Umbilical hernia Anemia Allergic rhinitis Endometriosis (Chronic) Chronic pelvic pain in female S/P laparoscopic hysterectomy S/P unilateral salpingo-oophorectomy Encounter for pre-operative examination Medical History History of stomach ulcers Anxiety Surgical History History of colonoscopy History of hysterectomy with unilateral oophorectomy d/t endometriosis (right removed) History of bilateral tubal ligation History of dilatation and curettage History of esophagogastroduodenoscopy (EGD) History of tooth extraction Family History Mother Family history of reaction to anesthesia SLOW TO WAKE UP Diabetes Lung cancer Father Cerebral aneurysm Social History Smoking Status: Former smoker Second Hand Exposure: No; Do You Dip or Chew Tobacco: No; Hx Alcohol Use: No Hx Substance Use: No Preferred Language: Mosotho Communication Ability: Effective Carpenter Ship Required: No Beliefs That Will Affect Care: None marital status: Single Current Living Situation: Significant Other Current Living Situation Comment: Lives with fiance and DAUGHTER current occupational status: unemployed and disabled current occupation: HAS NOT WORKED 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 How many Children do You have: 2 Other Information That Helps Us Care for You: No Feels Safe at Home: Yes during the past year weight has: decreased > 10 lbs Assistive Devices: None Review of Systems Review of Systems: As per HPI, all other systems reviewed and negative Physical Exam Physical Exam: GENERAL: Slightly uncomfortable, pleasant, no respiratory distress SKIN: Normal color, warm HEENT: [place] palpebral conjunctivae, no ptosis, dry buccal mucosa NECK : Supple, no tenderness CHEST : CTA, no tenderness HEART : RRR, no obvious murmurs ABDOMEN: Some distention, epigastric tenderness EXTREMITIES : No LE swelling/tenderness, no other conspicuous deformities noted NEUROLOGIC : Coherent, no facial asymmetry, no other gross focality Results & Data Results & Data Vital Signs (Past 12 Hours) Vital Signs Temp Pulse Pulse Resp BP BP Pulse Ox 02/21/25 18:00 66 16 124/76 98 02/21/25 16:30 60 18 98 02/21/25 16:30 60 18 134/98 98 02/21/25 16:01 36.6 C 80 20 130/82 99 O2 Del Method 02/21/25 18:00 Room Air 02/21/25 16:30 Room Air 02/21/25 16:30 Room Air 02/21/25 16:01 Laboratory Results Laboratory Results WBC 8.48 K/ul (4.8-10.8) 02/21/25 16:20 RBC 4.96 M/uL (4.20-5.40) 02/21/25 16:20 Hgb 15.8 g/dL (12.0-16.0) 02/21/25 16:20 Hct 45.9 % (37.0-47.0) 02/21/25 16:20 MCV 92.5 fL (80.0-100.0) 02/21/25 16:20 MCH 31.9 pg (25.0-34.0) 02/21/25 16:20 MCHC 34.4 g/dL (32.0-36.0) 02/21/25 16:20 RDW Std Deviation 40.7 fL (36.4-46.3) 02/21/25 16:20 RDW Coeff of Leopoldo 11.9 % (11.5-14.5) 02/21/25 16:20 Plt Count 341 K/uL (130-400) 02/21/25 16:20 MPV 8.3 fL (9.4-12.4) L 02/21/25 16:20 Immature Gran % (Auto) 0.4 % 02/21/25 16:20 Neut % (Auto) 76.8 % 02/21/25 16:20 Lymph % (Auto) 16.2 % 02/21/25 16:20 [place] % (Auto) 5.4 % 02/21/25 16:20 Eos % (Auto) 0.6 % 02/21/25 16:20 Baso % (Auto) 0.6 % 02/21/25 16:20 Neut # (Auto) 6.52 K/uL (1.40-6.50) H 02/21/25 16:20 Lymph # (Auto) 1.37 K/uL (1.20-3.40) 02/21/25 16:20 [place] # (Auto) 0.46 K/uL (0.11-0.59) 02/21/25 16:20 Eos # (Auto) 0.05 K/uL (0.00-0.50) 02/21/25 16:20 Baso # (Auto) 0.05 K/uL (0.00-0.20) 02/21/25 16:20 Immature Gran # (Auto) 0.03 K/uL (0.01-0.20) 02/21/25 16:20 Sodium 139 mmol/L (136-145) 02/21/25 16:20 Potassium 3.8 mmol/L (3.5-5.1) 02/21/25 16:20 Chloride 101 mmol/L (98-107) 02/21/25 16:20 Carbon Dioxide 31 mmol/L (21-32) 02/21/25 16:20 Anion Gap 7 (3-11) 02/21/25 16:20 BUN 17 mg/dl (6-23) 02/21/25 16:20 Creatinine 0.83 mg/dl (0.6-1.2) 02/21/25 16:20 Est Cr Clr Drug Dosing 84.7 ml/min 02/21/25 16:20 eGFR 91.34 02/21/25 16:20 BUN/Creatinine Ratio 20.5 (10-20) H 02/21/25 16:20 Glucose 107 mg/dl (70-99(Fasting)) H 02/21/25 16:20 Calcium 9.8 mg/dl (8.6-10.3) 02/21/25 16:20 Total Bilirubin 0.4 mg/dl (0.2-1.0) 02/21/25 16:20 AST 22 U/L (13-39) 02/21/25 16:20 ALT 19 U/L (7-52) 02/21/25 16:20 Alkaline Phosphatase 70 U/L (34-104) 02/21/25 16:20 Total Protein 8.3 gm/dl (6.0-8.3) 02/21/25 16:20 Albumin 4.9 gm/dl (3.4-5.0) 02/21/25 16:20 Globulin 3.4 gm/dl (2.5-4.0) 02/21/25 16:20 Albumin/Globulin Ratio 1.4 (0.9-2) 02/21/25 16:20 Lipase 88 U/L (11-82) H 02/21/25 16:20 Urine Color Yellow 02/21/25 16:20 Urine Appearance Clear (Clear) 02/21/25 16:20 Urine pH 7.0 (4.5-7.5) 02/21/25 16:20 Ur Specific [place] 1.006 (1.000-1.030) 02/21/25 16:20 Urine Protein Negative (Negative) 02/21/25 16:20 Urine Glucose (UA) Negative (Negative) 02/21/25 16:20 Urine Ketones Negative (Negative) 02/21/25 16:20 Urine Blood Negative (Negative) 02/21/25 16:20 Urine Nitrite Negative (Negative) 02/21/25 16:20 Urine Bilirubin Negative (Negative) 02/21/25 16:20 Urine Urobilinogen Negative (Negative) 02/21/25 16:20 Ur Leukocyte Esterase Negative (Negative) 02/21/25 16:20 Urine Comment 02/21/25 16:20 Impressions Abdomen/Pelvis CT 02/21/25 16:13 Clinical History: Pain. Pancreatitis Technique: Axial computed tomography images were obtained of the abdomen and pelvis after the administration of intravenous and oral contrast. Comparison is made to the prior CT dated 06/16/2024. Findings: The liver is overall of normal size, attenuation, and contour with no sign of cirrhosis or significant fatty infiltration. No liver mass lesion is seen. The portal vein is patent. The gallbladder appears to have been removed. No bile duct dilatation is noted. The spleen is of normal size. No focal splenic lesion is evident. There is no sign of acute pancreatic. There is mild dilatation of the pancreatic duct in the pancreatic neck and proximal pancreatic body, measuring 4 mm. There is abrupt termination of this dilatation within the pancreatic head. No clear pancreatic mass lesion is seen. The previously seen pancreatic duct stent has been removed. The adrenal glands appear unremarkable. No definite renal or proximal ureteral calculi are seen on this contrast-enhanced study. There is no hydronephrosis or perinephric stranding. No renal mass lesion is identified. The aorta is of normal caliber. No abdominal adenopathy is seen. The stomach appears normal. There is no sign of small bowel obstruction. The colon appears unremarkable. The appendix appears normal also. No free intraperitoneal fluid or air is identified. No distal ureteral or bladder calculi are seen. No bladder mass lesion is evident. The iliac arteries are of normal caliber. No pelvic adenopathy is noted. There is a 3.2 cm left ovarian cyst. The uterus has been removed. The lungs bases appear clear. No fracture is identified. No focal osseous lesion is seen Impression: 1. No definite sign of acute pancreatitis 2. Mild pancreatic ductal dilatation that could be due to a benign stricture. The previously seen pancreatic duct stent has been removed. No clear pancreatic mass is identified 3. Left ovarian cyst, likely a benign functional cyst Electronically signed by Joshua Lamb 02-21-2025 6:41 PM (1) Abdominal pain Abdominal location: epigastric Qualified Code(s): R10.13 - Epigastric pain
[2025-02-21] MEDS ORDERED: PROMETHAZINE 12.5 MG/50.5 ML BAG IV PRN (20:10)
[2025-02-21] MEDS ORDERED: LORazepam 0.5 MG TAB PO PRN (21:09)
[2025-02-21] MEDS ORDERED: MELATONIN 3 MG TAB PO PRN (21:14)
[2025-02-21 21:45] LABS: Hematocrit (blood only) 38.9 % (37.0-47.0); Hemoglobin 13.4 g/dL (12.0-16.0)
[2025-02-21] MEDS: busPIRone 15 MG TAB PO SCH (21:47)
[2025-02-21] MEDS: LACTATED RINGER'S 1,000 ML IV ONE (22:04)
[2025-02-22 06:58] VITALS: BP 116/78; PULSE 61; RESP 17; TEMP 98.1; O2SAT 97
[2025-02-22 08:12] LABS: Hematocrit (blood only) 39.2 % (37.0-47.0); Hemoglobin 13.4 g/dL (12.0-16.0); Immature Granulocytes # (auto) 0.02 K/uL (0.01-0.20); Immature Granulocytes % (auto) 0.2 %; Mean Corpuscular Hemoglobin 32.1 pg (25.0-34.0); Mean Corpuscular Volume 93.8 fL (80.0-100.0); Platelet Count 290 K/uL (130-400); RDW Standard Deviation 41.1 fL (36.4-46.3); Red Blood Count 4.18 M/uL (4.20-5.40); White Blood Count 8.04 K/ul (4.8-10.8)
[2025-02-22 08:47] LABS: Alanine Aminotransferase 16.0 U/L (7-52); Albumin Globulin Ratio 1.9 (0.9-2); Albumin Level 4.0 gm/dl (3.4-5.0); Alkaline Phosphatase 55.0 U/L (34-104); Anion Gap 5.0 (3-11); Bilirubin,Total 0.5 mg/dl (0.2-1.0); Blood Urea Nitrogen 11.0 mg/dl (6-23); Calcium 8.5 mg/dl (8.6-10.3); Carbon Dioxide 32.0 mmol/L (21-32); Chloride 106.0 mmol/L (98-107); Creatinine Clr Calc Pharmacy 89.7 ml/min; Globulin 2.1 gm/dl (2.5-4.0); Glucose 90.0 mg/dl (70-99(Fasting)); Potassium 3.8 mmol/L (3.5-5.1); Sodium 143.0 mmol/L (136-145); Total Protein 6.1 gm/dl (6.0-8.3)
--- NOTE | 2025-02-22 08:52 | Gastrointestinal Consultation ---
<Statement entered by Raymond Saunders MD - 02/22/25 15:05> ATTENDING [facility] labs, data, records and imaging were reviewed at length. The case was discussed with the GI nurse practitioner at length. I did not have the opportunity to evaluate the patient directly at bedside as the patient was discharged prior to my evaluation. Outpatient GI evaluation is reasonable. The patient has no evidence of active gastrointestinal bleeding or acute issue. Date of Consultation February 22, 2025 Assessment & Plan (1) Vomitin39 year old female with history of fatty liver, GERD s/p TIF, depression/anxiety, chronic recurrent pancreatitis, pancreas divisum s/p sphinct erotomy and stent placement admitted through the ED w/ report of abdominal pain, nausea/vomiting. She has remained hemodynamically stable overnight without reports of black/bloody stools or emesis. There is report of bilious emesis and dark brown stools. HGB stable, LFTs non-elevated, lipase [address] w/o evidence of acute pancreatitis but there is mention of 4 mm PD dilation w/ abrupt termination of this dilatation within the pancreatic head without obvious mass or lesion. She tells me she is being discharge at 0900 to attend her mothers this AM and that she will likely return to the ED after the service if she has ongoing discomfort. 1. History of recurrent pancreatitis, pancreas divisum s/p sphincterotomy and stent placement - CT w/ 4mm PD dilation w/ abrupt termination of this dilatation within the pancreatic head w/o obvious mass - She tells me she is scheduled for EUS/ERCP in February with her care team at [facility] - Please arrange OP clinic appt w/ your care team at [facility] (Myranda Mckeon CRNP) - Continue creon w/ meals and snacks at outpatient dosing 2. Outpatient Hemoccult positive test - No signs of active GI bleeding - Emesis is bilious - No BM overnight - Report of dark brown stools prior to arrival - Trend H&H - Monitor and document GI output - No acute indication for endoscopic evaluation - Keep EGD/Colonoscopy as scheduled w/ [facility] as an outpatient - Continue Pantoprazole 40 mg twice daily - Continue Pepcid 20 mg once daily I spent a total of 60 minutes on the date of service in review of patient's record, and previously obtained information in person and appropriate medical visit, discussion and education of plan, with patient and/or caregiver, placing orders for tests/referral/procedures as medically necessary and documentation of pertinent clinical information in patient's medical records for their visit today. History of Present Illness Reason for Consultation: abd pain, ugib Requesting Physician: Raj Moon DO Attending Physician: Raj Moon DO History of Present Illness 39 year old female with history of fatty liver, GERD s/p TIF, depression/anxiety, chronic recurrent pancreatitis, pancreas divisum s/p sphincterotomy and stent placement admitted through the ED w/ report of abdominal pain, nausea/vomiting. GI was asked to evaluate her an UGIB. Pt was seen and evaluated, chart reviewed. She tells me she is being discharged around 0900 but will return to the ED after attending a for ongoing symptoms if present. She notes her abdominal discomfort, nausea/vomiting started a few days ago. She had outpatietn testing through [id number] and was told she had heme positive stools and was scheduled for an EGD/EUS/ERCP and colonoscopy on February w/ her regular GI team. She had ongoing symptoms so presented to the ED. She denies any black/bloody emesis to me. She repors her emesis if bile or whateer she had just consumed. She endorses chronic constipation. At times her stools appear dark brown. No black or bloody stools. No fever, chills, CP, SOB. HGB 13.4 --> 13.4 BUN 11 Tb 0.5 AST 18 ALT 16 ALKP 55 Lipase 88 CTAP 2024: No definite sign of acute pancreatitis Mild pancreatic ductal dilatation that could be due to a benign stricture. The previously seen pancreatic duct stent has been removed. No clear pancreatic mass is identified Left ovarian cyst, likely a benign functional cyst EGD 2024: Plastic pancreatic stent in the duodenum. Removed. EUS 2024: - Normal esophagus.- A post TIF fundoplication was found. The wrap appears intact.- Normal stomach. - Normal duodenal bulb and second portion of the duodenum. - There was no sign of significant pathology in the ampulla.- There was no sign of significant pathology in the common bile duct.- Evidence of a cholecystectomy. - There was no evidence of significant pathology in the visualized portion of the liver. - Pancreatic parenchymal abnormalities consisting of hyperechoic strands and hyperechoic foci were noted in the entire pancreas.- Pancreas divisum was visualized. - No specimens collected. ERCP 2024: Pancreas divisum was found. A sphincterotomy was performed and then a stent was placed at the minor papilla. Allergies Allergy/AdvReac Type Severity Reaction Status Date / Time clindamycin Allergy Intermediate muscle Verified 02/21/25 20:06 aches/metal taste in mouth Penicillins Allergy Unknown UNKNOWN, Verified 02/21/25 20:06 CHILD ALLERGY doxycycline AdvReac Mild Metallic Verified 02/21/25 20:06 Taste Home Medications Medication Instructions Recorded Confirmed Type trazodone 100 mg tablet 100 mg PO HS 06/26/22 02/21/25 History ondansetron 4 mg disintegrating 4 mg PO Q6H PRN nausea and 07/20/23 02/21/25 Rx tablet vomiting #12 tabs famotidine 20 mg tablet 20 mg PO HS 06/04/24 02/21/25 History Natural Supplement 1 dose PO QAM 02/21/25 02/21/25 History ashwagandha extract 500 mg capsule 500 mg PO DAILY 02/21/25 02/21/25 History buspirone 15 mg tablet 15 mg PO AMHS 02/21/25 02/21/25 History duloxetine 60 mg capsule,delayed 60 mg PO DAILY 02/21/25 02/21/25 History release nmebyv-adxyugux-wyotwo(pork)24,000-76,000-120,000 1 cap PO .WITH MEALS &SNACKS 02/21/25 02/21/25 History unit capsule,del rel (Creon) melatonin 10 mg chewable tablet 10 mg PO HS 02/21/25 02/21/25 History oxycodone 5 mg tablet 10 mg PO QPM 02/21/25 02/21/25 History pantoprazole 40 mg tablet,delayed 40 mg PO AMPM 02/21/25 02/21/25 History release polyethylene glycol 3350 17 17 g PO QAM 02/21/25 02/21/25 History gram/dose oral powder Patient History Medical History History of stomach ulcers Anxiety Surgical History History of colonoscopy History of hysterectomy with unilateral oophorectomy d/t endometriosis (right removed) History of bilateral tubal ligation History of dilatation and curettage History of esophagogastroduodenoscopy (EGD) History of tooth extraction Family History Mother Family history of reaction to anesthesia SLOW TO WAKE UP Diabetes Lung cancer Father Cerebral aneurysm Social History Smoking Status: Former smoker Second Hand Exposure: No; Do You Dip or Chew Tobacco: No; Hx Alcohol Use: No Hx Substance Use: No Preferred Language: Sinhala Communication Ability: Effective Marketing Programs Specialist Required: No Beliefs That Will Affect Care: None marital status: Single Current Living Situation: Significant Other Current Living Situation Comment: Lives with fiance and DAUGHTER current occupational status: unemployed and disabled current occupation: HAS NOT WORKED 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 How many Children do You have: 2 Feels Safe at Home: Yes during the past year weight has: decreased > 10 lbs Assistive Devices: None Review of Systems Review of Systems: All other findings negative except as noted in HPI. Physical Exam Constitutional: WD/WN, vitals as above Respiratory: normal respiratory effort Cardiovascular: Rate/Rhythm: regular rate and regular rhythm Gastrointestinal (Abdomen): Percussion/Palpation: + abdomen tender and abdomen soft Skin: no rashes, warm and dry Results & Data Vital Signs (Past 12 Hours) Vital Signs Temp Pulse Resp BP Pulse Ox O2 Del Method 02/22/25 06:57 98.1 F 61 17 116/78 97 Room Air 02/21/25 21:28 97.5 F L 58 L 20 130/82 99 Room Air Laboratory Results 02/22/25 02/21/25 02/21/25 Range/Units 07:22 21:31 16:20 WBC 8.04 8.48 (4.8-10.8) K/ul RBC 4.18 L 4.96 (4.20-5.40) M/uL Hgb 13.4 13.4 15.8 (12.0-16.0) g/dL Hct 39.2 38.9 45.9 (37.0-47.0) % MCV 93.8 92.5 (80.0-100.0) fL MCH 32.1 31.9 (25.0-34.0) pg MCHC 34.2 34.4 (32.0-36.0) g/dL RDW Std Deviation 41.1 40.7 (36.4-46.3) fL RDW Coeff of Leopoldo 11.9 11.9 (11.5-14.5) % Plt Count 290 341 (130-400) K/uL MPV 8.7 L 8.3 L (9.4-12.4) fL Immature Gran % (Auto) 0.2 0.4 % Neut % (Auto) 70.6 76.8 % Lymph % (Auto) 19.8 16.2 % [place] % (Auto) 7.1 5.4 % Eos % (Auto) 1.6 0.6 % Baso % (Auto) 0.7 0.6 % Neut # (Auto) 5.67 6.52 H (1.40-6.50) K/uL Lymph # (Auto) 1.59 1.37 (1.20-3.40) K/uL [place] # (Auto) 0.57 0.46 (0.11-0.59) K/uL Eos # (Auto) 0.13 0.05 (0.00-0.50) K/uL Baso # (Auto) 0.06 0.05 (0.00-0.20) K/uL Immature Gran # (Auto) 0.02 0.03 (0.01-0.20) K/uL Sodium 143 139 (136-145) mmol/L Potassium 3.8 3.8 (3.5-5.1) mmol/L Chloride 106 101 (98-107) mmol/L Carbon Dioxide 32 31 (21-32) mmol/L Anion Gap 5 7 (3-11) BUN 11 17 (6-23) mg/dl Creatinine 0.79 0.83 (0.6-1.2) mg/dl Est Cr Clr Drug Dosing 89.7 84.7 ml/min eGFR 96.92 91.34 BUN/Creatinine Ratio 13.9 20.5 H (10-20) Glucose 90 107 H (70-99(Fasting)) mg/dl Calcium 8.5 L 9.8 (8.6-10.3) mg/dl Total Bilirubin 0.5 0.4 (0.2-1.0) mg/dl AST 18 22 (13-39) U/L ALT 16 19 (7-52) U/L Alkaline Phosphatase 55 70 (34-104) U/L Total Protein 6.1 D 8.3 (6.0-8.3) gm/dl Albumin 4.0 4.9 (3.4-5.0) gm/dl Globulin 2.1 L 3.4 (2.5-4.0) gm/dl Albumin/Globulin Ratio 1.9 1.4 (0.9-2) Lipase 88 H (11-82) U/L Urine Color Yellow Urine Appearance Clear (Clear) Urine pH 7.0 (4.5-7.5) Ur Specific [place] 1.006 (1.000-1.030) Urine Protein Negative (Negative) Urine Glucose (UA) Negative (Negative) Urine Ketones Negative (Negative) Urine Blood Negative (Negative) Urine Nitrite Negative (Negative) Urine Bilirubin Negative (Negative) Urine Urobilinogen Negative (Negative) Ur Leukocyte Esterase Negative (Negative) Urine Comment Blood Type O Positive Antibody Screen NEGATIVE PG Care Time/CCT Total # of Minutes Spent Total Time Spent with Patient: Total time spent is greater than 50% in coordination of care (as documented) at patient's floor/unit and/or counseling patient: Coding Level of Care Code 17527 IN/OBS CONSULT LVL 4,60M Diagnoses Vomiting R11.2 Nausea presence: with nausea Vomiting type: unspecified (1) Vomiting Nausea presence: with nausea Vomiting type: unspecified Qualified Code(s): R11.2 - Nausea with vomiting, unspecified
[2025-02-22] MEDS: PANTOprazole 40 MG/10 ML SYR IV SCH (08:55)
[2025-02-22] MEDS: POLYETHYLENE (MIRALAX) 17 GM PACK PO SCH (09:18)
[2025-02-22] MEDS: DOCUSATE SODIUM/SENNA 50/8.6MG TAB PO SCH (09:18)
--- NOTE | 2025-02-22 11:58 | Discharge Summary ---
Discharge Summary Date of Service February 22, 2025 Principal Dx & Hospital Course #1 = Principal Diagnosis (1) Abdominal pain: Ms Teran is a pleasant 39F with PMH history GERD status post TIF, NAFLD, anxiety, prior tobacco abuse who presented yesterday with dark stools, mild abdominal pain. She follows with [facility] as OP. SHe states she is on protonix BID and pepcid at home. She has an OP EGD scheduled for end of february. Hgb 13.4 yesterday, 13.4 again today. No hematemesis or BRBPR. she feels well today. Unfortunately, she has her mother's today at 1100. She stated she was going to go to it one way or another. D/w nursing and CM, te mporary leave of absence is not possible. Patient is HDS with stable Hgb and feels well. SHe will be discharged home with the instructions to return to ED immediately following . Notes For Next Care Provider Medication Changes From Visit none Admission HPI Per Admitting Provider History obtained from patient and records. Medical history significant for recurrent pancreatitis, pancreatic divisum as per records, NAFLD, GERD status post TIF, IBS constipation predominant, anxiety/mood disorder, past tobacco abuse. Last confinement May 2024 for recurrent pancreatitis. 1 month history of intermittent dark stools associated with home without unusual abdominal pain. No chest pain, no SOB. No OTC NSAID intake. Outpatient FOBT test positive. Outpatient endoscopy by GI specialist scheduled next month. Patient requested PCP for [facility] specialist referral for an earlier schedule. 3 days ago, patient noted achy upper abdominal pain associated with dark stools. Some nausea, no emesis. Episode somewhat reminiscent of pancreatitis attack. Usual constipation symptoms. Some stress from recent demise of mother. No chest pain, no SOB. No fever, no chills. . Medical History as above May 2024 EGD normal esophagus, normal stomach. Plastic pancreatic stent from duodenum removed. 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 No obvious deformities Ext: No Edema cyanosis Skin: Warm, Dry Neuro: AOx3 No focal deficits. Psych: Normal Mood Updated Medication List Medication Instructions Recorded Confirmed Type trazodone 100 mg tablet 100 mg PO HS 06/26/22 02/21/25 History ondansetron 4 mg disintegrating 4 mg PO Q6H PRN nausea and 07/20/23 02/21/25 Rx tablet vomiting #12 tabs famotidine 20 mg tablet 20 mg PO HS 06/04/24 02/21/25 History Natural Supplement 1 dose PO QAM 02/21/25 02/21/25 History ashwagandha extract 500 mg capsule 500 mg PO DAILY 02/21/25 02/21/25 History buspirone 15 mg tablet 15 mg PO AMHS 02/21/25 02/21/25 History duloxetine 60 mg capsule,delayed 60 mg PO DAILY 02/21/25 02/21/25 History release xnefrw-mzripyzs-uwzemy(pork)24,000-76,000-120,000 1 cap PO .WITH MEALS &SNACKS 02/21/25 02/21/25 History unit capsule,del rel (Creon) melatonin 10 mg chewable tablet 10 mg PO HS 02/21/25 02/21/25 History oxycodone 5 mg tablet 10 mg PO QPM 02/21/25 02/21/25 History pantoprazole 40 mg tablet,delayed 40 mg PO AMPM 02/21/25 02/21/25 History release polyethylene glycol 3350 17 17 g PO QAM 02/21/25 02/21/25 History gram/dose oral powder Hospital Stay Data Consultations 02/21/25 19:34 ED Decision to Admit Stat 02/21/25 19:36 ED Decision to Admit Stat 02/21/25 21:05 Consult Gastroenterology Routine Diagnostic Imagining Performed 02/21/25 16:13 CT Abd and Pelvis [CT abd pelvis oral and IV con] Stat Pending Results Patient Have Any Pending Studies at Discharge: No Discharge Instructions Given to Patient (Per Discharging Provider) Return as soon as the services are over. return immediately should you develop light headedness, dizziness, chest pain, shortness of breath, worsening abd pain, bright red blood in stool, Total Time Total Time Spent Total Time Spent (In Minutes): 40
--- NOTE | 2025-02-24 10:35 | Coding Query ---
To promote full compliance with coding requirements relating to patient care, provider participation is requested in all cases of attending radiologist uncertainty. Please assist us with the question(s) below: Coding Question(s): The diagnosis below was documented in the H&P, then subsequently fell off all further documentation on Discharge Summary. Please indicate if it is still a possible diagnosis or ruled out. Physician's Response(s): UGIB (upper GI Bleeding) - documented on H&P ( ) Diagnosed - monitored and or/treated (x ) Ruled out ( ) Other (please specify) MTDD
--- NOTE | 2025-02-24 10:37 | Coding Query ---
CODING QUERY To promote full compliance with coding requirements relating to patient care, provider participation is requested in all cases of medical biller/coder uncertainty. Please assist us with the question(s) below: Coding Question(s): Please specify below, in your clinical opinion, the most likely cause of abdominal pain on this admission: ( ) Possible Pancreatitis Flare, meaning Possible Acute Pancreatitis ( ) Other, Please Specify (x ) Unknown likely cause Physician's Response(s): Thank you Maria M Patino Principal Diagnosis: "that condition established after study, to be chiefly responsible for occasioning the admission of the patient to the hospital for care." Co-Existing Principal Diagnosis: "when two or more diagnoses equally meet the criteria for principal diagnosis as determined by the circumstances of admission, diagnostic work up, and/or therapy provided, and the Alphabetic Index, Tabular List, or another coding guideline does not provide sequencing direction, any one of the diagnoses may be sequenced first." "When the physician has documented what appears to be a current diagnosis in the body of the record, but has not included the diagnosis in the final diagnostic statement, the physician should be asked whether the diagnosis should be added." (Source Coding [facility] 2 QTR90. p3-4) KELLY
== END 2025-02-22 09:43 | disposition home or self-care (01) | DRG 392 ==
LOC: ED 15:57 → 3W 20:10 → INTOOBSV 20:10 → 3W 20:55